=== PATIENT | female | born 1975 | race Caucasian/White ===

== ENCOUNTER 2023-07-25 12:28 | Inpatient (IN) | payer OTHER, SELFPAY ==
[2023-07-25] VITALS (48 sets, daily range): BP systolic 117–143; BP diastolic 77–94; PULSE 27–99; RESP 2–33; TEMP 36.3–36.6; O2SAT 71–96; BMI 50.3; BMI 51.7
--- NOTE | 2023-07-25 12:36 | PC.NURSE ---
Pulse ox. 71% on room air after coming back to room, oxygen applied at 6LPM/NC and pulse ox. 83%, face mask applied at 10 LPM and pulse ox. immediately up to 88-92%.
--- NOTE | 2023-07-25 12:39 | ECG_ITS ---
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
--- NOTE | 2023-07-25 12:42 | ED.SOB1 ---
HPI - SOB/Dyspnea General Chief Complaint: Shortness of Breath/Dyspnea Stated Complaint: SHORTNESS OF BREATH Time Seen by Provider: 07/25/23 12:34 Source: patient Mode of arrival: Wheelchair Limitations: no limitations History of Present Illness HPI Narrative: 47-year-old female presents for a four day history of difficulty breathing. She has a history of chronic obstructive pulmonary disease and has been coughing up some green phlegm. She has not had a known fever and hasn't had hemoptysis. O2 sat was found to be in the low 80s on room air upon arrival. She is not complaining of chest pain. Related Data Home Medications Medication Instructions Recorded Confirmed albuterol 90 mcg/actuation aerosol 90 mcg inhalation QID PRN 07/25/23 07/25/23 inhaler shortness of breath or wheezing hydrochlorothiazide 25 mg tablet 25 mg PO QAM 07/25/23 07/25/23 verapamil 240 mg 24 hr 240 mg PO DAILY 07/25/23 07/25/23 capsule,extended release Allergies Allergy/AdvReac Type Severity Reaction Status Date / Time Penicillins Allergy Intermediate Rash Verified 07/25/23 12:33 sulfamethoxazole Allergy Intermediate Agitated Verified 07/25/23 12:33 [From Bactrim] trimethoprim [From Bactrim] Allergy Intermediate Agitated Verified 07/25/23 12:33 Review of Systems ROS Narrative A ten point review of systems is negative except as noted above. PFSH PFSH Social History Smoking status: Former smoker Exam Narrative Exam Narrative: Nurses note and vital signs reviewed and patient is not hypoxic. General: The patient appears dyspneic.. Skin: Warm, dry, no pallor noted. There is no rash noted. Head: Normocephalic, atraumatic Eye: Normal conjunctiva, no drainage Ears, Nose, Mouth, and Throat: oral mucosa is moist. Nares patent. Cardiovascular: Regular Rate and Rhythm Respiratory: bilateral rhonchi throughout with decreased air movement. Back: non-tender GI: nontender Musculoskeletal: The patient has no evidence of calf tenderness, no pitting edema, symmetrical pulses noted bilaterally Neurological: A&O, normal speech Psychiatric: Cooperative Constitutional Vital Signs, click to edit/add: Last Vital Signs Temp 97.6 F 07/25/23 12:33 Pulse 85 07/25/23 14:40 Resp 22 07/25/23 14:40 BP 143/94 H 07/25/23 12:35 Pulse Ox 90 L 07/25/23 14:40 O2 Del Method Vapotherm 07/25/23 13:30 O2 Flow Rate 40 07/25/23 13:09 FiO2 60 07/25/23 13:30 Course Vital Signs Vital signs: Vital Signs Temperature 97.6 F 07/25/23 12:33 Pulse Rate 80 07/25/23 12:33 Respiratory Rate 24 07/25/23 12:33 Blood Pressure 143/94 H 07/25/23 12:33 Pulse Oximetry 93 L 07/25/23 12:33 Oxygen Delivery Method Simple Mask 07/25/23 12:33 Temperature 97.6 F 07/25/23 12:33 Pulse Rate 85 07/25/23 14:40 Respiratory Rate 22 07/25/23 14:40 Blood Pressure 143/94 H 07/25/23 12:35 Pulse Oximetry 90 L 07/25/23 14:40 Oxygen Delivery Method Vapotherm 07/25/23 13:30 Oxygen Delivery Flow Rate 40 07/25/23 13:09 Fraction of Inspired Oxygen 60 07/25/23 13:30 MDM - SOB/Dyspnea MDM Narrative Medical decision making narrative: the patient presented with chronic obstructive pulmonary disease exacerbation and hypoxemia. She is improving with being given IV Solu-Medrol and being placed on Vapotherm and given aerosol treatments. She is being admitted. Blood cultures were obtained and then she was given IV antibiotics. Covid test negative. Treatment diagnosis and disposition were discussed with the patient. Differential Diagnosis Differential diagnosis: Likely acute exacerbation of chronic obstructive airways disease, congestive heart failure and community acquired pneumonia Lab Data Attestation: I reviewed the patient's lab results. Labs: Lab Results 07/25/23 07/25/23 Range/Units 12:49 12:51 WBC 9.6 (4.0-11.0) 10^3/uL RBC 5.82 H (4.20-5.40) 10^6/uL Hgb 17.4 H (12.0-16.0) g/dL Hct 54.9 H (36.0-48.0) % MCV 94.3 (81.0-99.0) fL MCH 29.9 (26.7-34.0) pg MCHC 31.7 (29.9-35.2) g/dL RDW 13.5 (11.0-15.0) % Plt Count 304 (150-450) 10^3/uL MPV 10.7 (9.5-13.5) fL Neut % (Auto) 76.8 H (43.0-75.0) % Lymph % (Auto) 13.2 L (20.5-60.0) % [place] % (Auto) 7.1 (1.7-12.0) % Eos % (Auto) 1.8 (0.9-7.0) % Baso % (Auto) 0.6 (0.2-2.0) % Neut # (Auto) 7.3 H (1.4-6.5) 10^3/uL Lymph # (Auto) 1.3 (1.2-3.8) 10^3/uL [place] # (Auto) 0.7 (0.3-0.8) 10^3/uL Eos # (Auto) 0.2 (0.0-0.7) 10^3/uL Baso # (Auto) 0.1 (0.0-0.1) 10^3/uL Abs Immat Gran (auto) 0.05 H (0.00-0.03) 10^3/uL Imm/Tot Granulo (auto) 0.5 (0.0-0.5) % Sodium 136 (136-145) mmol/L Potassium 3.6 (3.5-5.1) mmol/L Chloride 95 L (98-107) mmol/L Carbon Dioxide 32.1 H (21.0-32.0) mmol/L Anion Gap 12.5 BUN 11.0 (7.0-18.0) mg/dL Creatinine 0.72 (0.55-1.02) mg/dL Est GFR ( Amer) >60 (>=60) Est GFR (Non-Af Amer) >60 (>=60) BUN/Creatinine Ratio 15.3 Glucose 129 H (74-106) mg/dL Lactate 1.9 (0.4-2.0) mmol/L Calcium 8.9 (8.5-10.1) mg/dL SARS-CoV-2 (PCR) Negative (NEGATIVE) Imaging Data Chest x-ray: Radiologist's impression: Procedure: XR chest 1V EXAMINATION: XR chest 1V HISTORY: SOB COMPARISON: No relevant comparison available. FINDINGS: LUNGS: Increased opacity within lung bases, left greater than right. VASCULATURE: No increased pulmonary vasculature. PLEURA: No pneumothorax, effusion, or pleural thickening. CARDIAC: No cardiomegaly or cardiac silhouette abnormality. MEDIASTINUM: No visible mass or adenopathy. BONES: No fracture or visible bone lesion. OTHER: Negative. IMPRESSION: 1. Examination is limited by patient body habitus and single frontal view AP portable technique. 2. Suspect mild bibasilar infiltrates versus atelectasis; left greater than right. Electronically authenticated by: DEA LACEY Date: 07/25/2023 13:33 Critical Care Time Critical Care Time Critical Care Time: Yes Total Critical Care Time: 35 Attestation: Due to the high probability of sudden and clinically significant deterioration in the patient's condition he/she required the highest level of my preparedness to intervene urgently I provided critical care time including documentation time, medication orders and management, reevaluation, vital sign assessment, ordering and reviewing of lab tests, ordering and reviewing of x-ray studies, and admission orders. Aggregate critical care time is 35 minutes including only time during which I was engaged in work directly related to his/her care and did not include time spent treating other patients simultaneously. Discharge Plan Discharge Chief Complaint: Shortness of Breath/Dyspnea Clinical Impression: Acute infective exacerbation of chronic obstructive airway disease, Community acquired pneumonia Patient Disposition: Admitted As Inpatient Time of Disposition Decision: 15:04 Condition: Fair
[2023-07-25] MEDS: METHYLPREDNISOLONE SOD SUCC PF 125 MG/2 ML VIAL IVP (13:05)
[2023-07-25] MEDS: ALBUTEROL SULFATE 2.5 MG/3 ML VIAL NEB IH (13:07)
--- NOTE | 2023-07-25 13:15 | XR_ITS ---
The [address] [address] Patient Name: DANIEL LYNN MRN: [id number] date: 1975 Sex: F Assigned Patient Location: ER Current Patient Location: ER Accession/Order Number: [id number] Exam Date: 07/25/2023 13:08 Report Date: 07/25/2023 13:33 At the request of: SENIA CHOUDHARY Procedure: XR chest 1V EXAMINATION: XR chest 1V HISTORY: SOB COMPARISON: No relevant comparison available. FINDINGS: LUNGS: Increased opacity within lung bases, left greater than right. VASCULATURE: No increased pulmonary vasculature. PLEURA: No pneumothorax, effusion, or pleural thickening. CARDIAC: No cardiomegaly or cardiac silhouette abnormality. MEDIASTINUM: No visible mass or adenopathy. BONES: No fracture or visible bone lesion. OTHER: Negative. XR/XR chest 1V IMPRESSION: 1. Examination is limited by patient body habitus and single frontal view AP portable technique. 2. Suspect mild bibasilar infiltrates versus atelectasis; left greater than right. Electronically authenticated by: DEA LACEY Date: 07/25/2023 13:33
--- NOTE | 2023-07-25 13:17 | RESP.RT ---
titrated down to 60%
--- NOTE | 2023-07-25 13:18 | RESP.RT ---
titrated down to 60%
[2023-07-25 13:23] LABS: Basophils Absolute Auto 0.1 10^3/uL (0.0-0.1); Basophils Percent Auto 0.6 % (0.2-2.0); Eosinophils Absolute Auto 0.2 10^3/uL (0.0-0.7); Eosinophils Percent Auto 1.8 % (0.9-7.0); Hematocrit 54.9 % (36.0-48.0); Hemoglobin 17.4 g/dL (12.0-16.0); Immature Granulocytes Abs Auto 0.05 10^3/uL (0.00-0.03); Immature Granulocytes Pct Auto 0.5 % (0.0-0.5); Lymphocytes Absolute Auto 1.3 10^3/uL (1.2-3.8); Lymphocytes Percent Auto 13.2 % (20.5-60.0); Mean Corpuscular HGB Conc 31.7 g/dL (29.9-35.2); Mean Corpuscular Hemoglobin 29.9 pg (26.7-34.0); Mean Corpuscular Volume 94.3 fL (81.0-99.0); Mean Platelet Volume 10.7 fL (9.5-13.5); Monocytes Absolute Auto 0.7 10^3/uL (0.3-0.8); Monocytes Percent Auto 7.1 % (1.7-12.0); Neutrophils Absolute Auto 7.3 10^3/uL (1.4-6.5); Neutrophils Percent Auto 76.8 % (43.0-75.0); Platelet Count 304 10^3/uL (150-450); Red Blood Count 5.82 10^6/uL (4.20-5.40); Red Cell Distribution Width 13.5 % (11.0-15.0); White Blood Count 9.6 10^3/uL (4.0-11.0)
[2023-07-25 13:30] LABS: Anion Gap 12.5; BUN Creatinine Ratio 15.3; Calcium 8.9 mg/dL (8.5-10.1); Carbon Dioxide 32.1 mmol/L (21.0-32.0); Chloride 95 mmol/L (98-107); Estimated GFR (African America >60 (>=60); Estimated GFR (Non-African Ame >60 (>=60); Glucose 129 mg/dL (74-106); Potassium 3.6 mmol/L (3.5-5.1); Sodium 136 mmol/L (136-145)
[2023-07-25 14:00] LABS: SARS-CoV-2 Ag NEGATIVE (NEGATIVE)
[2023-07-25] MEDS: CEFTRIAXONE 1,000 MG in 0.9 % SODIUM CHLORIDE 50 ML 100 MG IV (14:19)
[2023-07-25 14:22] LABS: Lactate/Lactic Acid 1.9 mmol/L (0.4-2.0)
[2023-07-25] MEDS: AZITHROMYCIN 500 MG in 0.9 % SODIUM CHLORIDE 250 ML 250 MG IV (15:01)
[2023-07-25] MEDS: KETOROLAC TROMETHAMINE 30 MG/ML VIAL IVP (15:01)
[2023-07-25 15:17] LABS: SARS-CoV-2 NAA NOT DETECTED (NOT DETECTE)
[2023-07-25] MEDS: IPRATROPIUM/ALBUTEROL SULFATE 3 ML AMPUL.NEB IH ×5 (17:04→23:58)
[2023-07-25] MEDS: LACTATED RINGER'S SOLUTION 1,000 ML 100 ML IV (17:07)
[2023-07-25] MEDS: MAGNESIUM SULFATE IN WATER 2 GM/50 ML PREMIX IV (17:12)
[2023-07-25] MEDS: ENOXAPARIN SODIUM 40 MG/0.4 ML SYRINGE SUBQ (17:15)
[2023-07-25 17:31] LABS: ABG PCO2 50.2 mmHg (35.0-45.0); Allen Test POSITIVE (POSITIVE); Base Excess ABG 4.9 mmol/L (-2.0-2.0); HCO3 ABG 29.9 mmol/L (22.0-26.0); Oxygen Saturation ABG 89.9 %; PO2 ABG 60.3 mmHg (80.0-100.0); pH ABG 7.384 (7.350-7.450)
[2023-07-25 17:32] LABS: Fractionated Inspired Oxygen 100 %; Liters per Minute 40; O2 Mode VAPOTHERM; Puncture Site LR
[2023-07-25] MEDS: ALPRAZOLAM 1 MG TABLET PO (18:07)
--- NOTE | 2023-07-25 18:08 | PC.NURSE ---
Transferred to ICU at 1800. RT Longoria assisted.
--- NOTE | 2023-07-25 18:34 | PM.EN ---
Event Note Event Note: Patient admitted from ED for resp failure with hypoxia sec to COPD exacerbation. Started on IV Solumedrol, inhaled bronchodilators. On IV rocephin/azithromycin for bacrterial PNA. Initially admitted for floor on high flow O2 but had increased work of breath, hypoxia - transferred to ICU and placed BIPAP for acute resp failure. ABG ordered and reviewed. Will repeat in one hour.
--- NOTE | 2023-07-25 20:44 | PC.NURSE ---
BIPAP in use. Settings 16/8 with 60% FIO2.
--- NOTE | 2023-07-25 20:55 | RESP.RT ---
Patient on Bipap
[2023-07-25 21:14] LABS: PO2 ABG 76.3 mmHg (80.0-100.0); pH ABG 7.314 (7.350-7.450)
[2023-07-25 21:15] LABS: Allen Test POSITIVE (POSITIVE); BIPAP Pressure 18/8; Base Excess ABG 5.3 mmol/L (-2.0-2.0); Fractionated Inspired Oxygen 60 %; HCO3 ABG 31.5 mmol/L (22.0-26.0); O2 Mode BIPAP; Oxygen Saturation ABG 93.6 %; Puncture Site R RADIAL
--- NOTE | 2023-07-25 21:19 | RESP.RT ---
Increase to 18 per doctors orders
[2023-07-25] MEDS: METHYLPREDNISOLONE SOD SUCC PF 40 MG/ML VIAL IVP (21:58)
--- NOTE | 2023-07-25 23:37 | RESP.RT ---
increased from 80%
--- NOTE | 2023-07-25 23:38 | RESP.RT ---
Increase to 90%
[2023-07-26] VITALS (59 sets, daily range): BP systolic 108–138; BP diastolic 57–79; PULSE 74–105; RESP 2–43; TEMP 36.2–36.4; O2SAT 88–96
--- NOTE | 2023-07-26 00:03 | RESP.RT ---
Titrate to 80%
--- NOTE | 2023-07-26 00:04 | RESP.RT ---
Titrated to 80%
[2023-07-26] MEDS: IPRATROPIUM/ALBUTEROL SULFATE 3 ML AMPUL.NEB IH ×6 (03:55→23:27)
[2023-07-26] MEDS: LACTATED RINGER'S SOLUTION 1,000 ML 100 ML IV ×3 (04:19→22:49)
--- NOTE | 2023-07-26 05:10 | RESP.RT ---
Titrate to 70%
--- NOTE | 2023-07-26 05:12 | RESP.RT ---
Titrate to 75%
--- NOTE | 2023-07-26 05:16 | RESP.RT ---
Titrated to 75%
[2023-07-26] MEDS: METHYLPREDNISOLONE SOD SUCC PF 40 MG/ML VIAL IVP (05:27)
[2023-07-26] MEDS: ACETAMINOPHEN 325 MG TABLET 650 MG PO (05:33)
[2023-07-26 05:53] LABS: Basophils Percent Auto 0.1 % (0.2-2.0); Hematocrit 52.7 % (36.0-48.0); Hemoglobin 16.3 g/dL (12.0-16.0); Immature Granulocytes Abs Auto 0.05 10^3/uL (0.00-0.03); Immature Granulocytes Pct Auto 0.6 % (0.0-0.5); Lymphocytes Absolute Auto 0.6 10^3/uL (1.2-3.8); Lymphocytes Percent Auto 6.7 % (20.5-60.0); Mean Corpuscular HGB Conc 30.9 g/dL (29.9-35.2); Mean Corpuscular Volume 96.9 fL (81.0-99.0); Mean Platelet Volume 10.5 fL (9.5-13.5); Monocytes Absolute Auto 0.1 10^3/uL (0.3-0.8); Monocytes Percent Auto 1.2 % (1.7-12.0); Neutrophils Absolute Auto 8.1 10^3/uL (1.4-6.5); Neutrophils Percent Auto 91.4 % (43.0-75.0); Platelet Count 263 10^3/uL (150-450); Red Blood Count 5.44 10^6/uL (4.20-5.40); Red Cell Distribution Width 13.4 % (11.0-15.0); White Blood Count 8.9 10^3/uL (4.0-11.0)
[2023-07-26 06:14] LABS: Alanine Aminotransferase 14 U/L (14-59); Albumin Globulin Ratio 0.5; Albumin Level 2.7 g/dL (3.4-5.0); Alkaline Phosphatase 64 U/L (46-116); Anion Gap 4.6; Aspartate Amino Transferase 13 U/L (15-37); BUN Creatinine Ratio 24.3; Bilirubin Total 0.5 mg/dL (0.2-1.0); Calcium 8.4 mg/dL (8.5-10.1); Carbon Dioxide 32.7 mmol/L (21.0-32.0); Chloride 97 mmol/L (98-107); Estimated GFR (African America >60 (>=60); Estimated GFR (Non-African Ame >60 (>=60); Globulin 5.2 g/dL; Glucose 193 mg/dL (74-106); Potassium 4.3 mmol/L (3.5-5.1); Sodium 130 mmol/L (136-145); Total Protein 7.9 g/dL (6.4-8.2)
[2023-07-26] MEDS: ENOXAPARIN SODIUM 40 MG/0.4 ML SYRINGE SUBQ (08:11)
[2023-07-26] MEDS: AZITHROMYCIN 250 MG TABLET 500 MG PO (08:11)
[2023-07-26] MEDS: VERAPAMIL HCL ER 240 MG TABLET PO (08:11)
[2023-07-26] MEDS: CEFTRIAXONE 1,000 MG in 0.9 % SODIUM CHLORIDE 50 ML 100 MG IV (08:16)
[2023-07-26 10:42] LABS: Allen Test POSITIVE (POSITIVE); Base Excess ABG 5.7 mmol/L (-2.0-2.0); HCO3 ABG 31.3 mmol/L (22.0-26.0); Oxygen Saturation ABG 90.3 %; PO2 ABG 60.4 mmHg (80.0-100.0)
[2023-07-26 10:43] LABS: Fractionated Inspired Oxygen 80 %; Liters per Minute 40; O2 Mode VAPO; Puncture Site R RADIAL
[2023-07-26 10:44] LABS: ABG PCO2 56.7 mmHg (35.0-45.0)
--- NOTE | 2023-07-26 11:11 | PM.HP ---
H&P: HPI History of Present Illness Chief complaint: SHORTNESS OF BREATH, Pneumonia, COPD Exacerbation Narrative: 47 y o female with hx of COPD, presents with cough, worsening SOB since Sunday. Reports her son was sick because of a cold and she woke up on Sunday with a sore throat, nasal congestion, and cough. She denies fever. She progressively started to feel worse with increasing SOB, cough and came to ED yesterday. Patients was found to have acute resp failure with hpyoxia sec to COPD exacerbation likely exacerebated by bibasilar PNA. She was treated with IV solumedrol, inhaled duonebs along with IV anx for presumed bacterial PNA and required High flow O2 to maintain her Sats above 90%. On arrival to floor, she was found to be tachypeic, with increased work of breath and was moved to ICU and had BIPAP placed. She remained on BIPAP overnight and was taken off of it so that she could have breakfast. She reports feeling better but looks sick, and gets out of breath during conversation. No prior hx of hospital admission for COPD. Current smoker. Review of Systems ROS Status of ROS 10 or more systems reviewed and unremarkable except as noted in history and below PFSH [facility] Medical History delivery delivered ?O82 - Encounter for delivery without indication (ICD-10) COPD (chronic obstructive pulmonary disease) ?J44.9 - Chronic obstructive pulmonary disease, unspecified (ICD-10) Diabetes ?E11.9 - Type 2 diabetes mellitus without complications (ICD-10) HTN (hypertension) ?I10 - Essential (primary) hypertension (ICD-10) Surgical History H/O: ?Z98.891 - History of uterine scar from previous surgery (ICD-10) Family History Mother Family history of CHF (congestive heart failure) Family history of COPD (chronic obstructive pulmonary disease) Family history of hypertension Family history of myocardial infarction Brother Family history of COPD (chronic obstructive pulmonary disease) Father Family history of cancer Grandfather Family history of diabetes mellitus Social History (Updated 07/26/23 @ 11:17 by Shaikh Carlyle MD) Within the past year, how often did you have a drink containing alcohol: never Within the past year, how many standard drinks containing alcohol did you have on a typical day: 1 or 2 Within the past year, how often did you have six or more drinks on one occasion: never Total score: 0 Score interpretation: A score less than 3 is consistent with normal alcohol consumption. Smoking status: Current every day smoker Non-prescribed substance use: denies use Meds Home Medications and Allergies Home Medications Medication Instructions Recorded Confirmed Type albuterol 90 mcg/actuation aerosol 90 mcg inhalation QID PRN 07/25/23 07/25/23 History inhaler shortness of breath or wheezing hydrochlorothiazide 25 mg tablet 25 mg PO QAM 07/25/23 07/25/23 History verapamil 240 mg 24 hr 240 mg PO .QHS 07/25/23 07/25/23 History capsule,extended release Allergies Allergy/AdvReac Type Severity Reaction Status Date / Time Penicillins Allergy Intermediate Rash Verified 07/25/23 12:33 sulfamethoxazole Allergy Intermediate Agitated Verified 07/25/23 12:33 [From Bactrim] trimethoprim [From Bactrim] Allergy Intermediate Agitated Verified 07/25/23 12:33 Exam Constitutional Vital Signs, click to edit/add: Last Vital Signs Temp 97.4 F L 07/26/23 07:59 Pulse 89 07/26/23 10:00 Resp 15 07/26/23 08:00 BP 115/73 07/26/23 07:28 Pulse Ox 91 L 07/26/23 08:30 O2 Del Method Vapotherm 07/26/23 07:59 O2 Flow Rate 40 07/26/23 07:38 FiO2 80 07/26/23 07:38 Documenting provider has reviewed patient's vital signs: yes Common normals: oriented x3 General appearance: cooperative and ill appearing Nutritional appearance: obese HENMT Common normals: normocephalic and head/scalp atraumatic Head and scalp: normocephalic and atraumatic Eye Common normals: conjunctivae normal and no scleral icterus Conjunctiva: conjunctiva(e) normal Respiratory Effort & inspection: actively coughing Auscultation: wheezes expiratory wheezes and throughout Other: Normal RR, bronchospastic, diminish air entry Cardio Common normals: regular rate, S1 normal heart sound and S2 normal heart sound Rate: regular rate Heart sounds: S1 normal and S2 normal GI Common normals: Normal to inspection, nondistended, normoactive bowel sounds present, soft to palpation, non-tender and no hepatosplenomegaly Palpation: soft and no hepatosplenomegaly Extremity Common normals: no clubbing, cyanosis or edema Neuro Common normals: oriented x3, moves all extremities and no focal motor deficits Psych Common normals: mental status grossly normal, denies hallucinations, denies homicidal ideation and denies suicidal ideation Results Labs Labs: Short CBC 07/25/23 07/26/23 Range/Units 12:49 05:27 WBC 9.6 8.9 (4.0-11.0) 10^3/uL Hgb 17.4 H 16.3 H (12.0-16.0) g/dL Hct 54.9 H 52.7 H (36.0-48.0) % Plt Count 304 263 (150-450) 10^3/uL BMP 07/25/23 07/26/23 12:49 05:27 Sodium 136 130 L Potassium 3.6 4.3 Chloride 95 L 97 L Carbon Dioxide 32.1 H 32.7 H BUN 11.0 18.0 Creatinine 0.72 0.74 Glucose 129 H 193 H Calcium 8.9 8.4 L Liver Function 07/26/23 Range/Units 05:27 Total Bilirubin 0.5 (0.2-1.0) mg/dL AST 13 L (15-37) U/L ALT 14 (14-59) U/L Alkaline Phosphatase 64 (46-116) U/L Albumin 2.7 L (3.4-5.0) g/dL ABG ABG results: 07/25/23 07/25/23 07/26/23 17:20 21:09 10:35 ABG pH 7.384 7.314 L 7.350 ABG pCO2 50.2 H* 62.0 H* 56.7 H* ABG pO2 60.3 L 76.3 L 60.4 L ABG HCO3 29.9 H 31.5 H 31.3 H ABG O2 Saturation 89.9 93.6 90.3 ABG Base Excess 4.9 H 5.3 H 5.7 H Assessment and Plan Assessment and Plan (1) Sepsis: Assessment and Plan: RR> 20, HR > 90, with PNA. Stable now. C/w IVF. C/w IV abx for community acquired PNA (2) Community acquired pneumonia: Assessment and Plan: C/w rocpehin/azithromycin Negative for COVID Order resp panel. (3) Acute infective exacerbation of chronic obstructive airway disease: Assessment and Plan: Sec to PNA. C/w systemic steroids, duonebs. Monitor closely. (4) Respiratory failure with hypercapnia: Assessment and Plan: Resulting from COPD/PNA. On BIPAP now. Pulm consult. Treat underlying cause - as outlined above. (5) Respiratory failure with hypoxia: Assessment and Plan: Due to COPD/PNA Wean off O2 as tolerated. On BIPAP for resp failure (6) HTN (hypertension): Assessment and Plan: Hold HCTZ. cw verapamil. (7) Diabetes: Assessment and Plan: Diet controlled as outpatient. not on meds. Sliding scale while in patient. FSBS above goal likely due to steroids. Qualifiers: Diabetes mellitus type: type 2 Diabetes mellitus patient safety coordinator insulin use: without shelter use Plan Patient critically ill with sepsis, acute resp failure, requiring NIV, close monitoring and at high risk of clinical deterioration, and poor outcome. Critical care time spent 45 min, on chart review, clinical decision making, patients assessment, care co ordination with more than 50% time spent face to face in patient's room
[2023-07-26 11:19] LABS: Adenovirus NOT DETECTED (NOT DETECTE); Bordetella parapertussis NOT DETECTED (NOT DETECTE); Coronavirus 229E NOT DETECTED (NOT DETECTE); Coronavirus HKU1 NOT DETECTED (NOT DETECTE); Coronavirus NL63 NOT DETECTED (NOT DETECTE); Coronavirus OC43 NOT DETECTED (NOT DETECTE); Human Metapneumovirus NOT DETECTED (NOT DETECTE); Influenza A NOT DETECTED (NOT DETECTE); Influenza B NOT DETECTED (NOT DETECTE); Mycoplasma pneumoniae NOT DETECTED (NOT DETECTE); Parainfluenza Virus 1 NOT DETECTED (NOT DETECTE); Parainfluenza Virus 2 NOT DETECTED (NOT DETECTE); Parainfluenza Virus 3 NOT DETECTED (NOT DETECTE); Parainfluenza Virus 4 NOT DETECTED (NOT DETECTE); Respiratory Syncytial Virus NOT DETECTED (NOT DETECTE); SARS-CoV-2 NOT DETECTED (NOT DETECTE)
--- NOTE | 2023-07-26 11:37 | P.PLCN_ITS ---
History of Present Illness History of Present Illness Consult date: 07/26/23 Requesting physician: Shaikh Carlyle Reason for consult: hypoxemia Chief complaint: SHORTNESS OF BREATH, Pneumonia, COPD Exacerbation Narrative: 47yo female presents to [facility] with ~4 day onset of worsening dyspnea and chest tightness. Her breathing worsened and she came to the ER. Oxygenation on room air was in the 80's and she was placed on supplemental O2. CXR suggested bibasilar infiltrates. She was admitted for pneumonia. Her O2 demands increased and she was placed on Vapotherm. She continued to deteriorate. ABG drawn showed compensated hypercapnic respiratory failure. She was transitioned to BiPAP, which she said is easier for her to breathe. Her O2 demands remand high and oxygen saturations remain tenuous. Reviewed past history with her. She states she is a long-term asthmatic, diagnosed age 14 based on symptoms (never has had PFT) and was only on Primatene Mist back then. Since that time, she is on albuterol only and does not have a m aintenance inhaler. Despite having asthma, she smokes up to 1ppd. She states she is a diet-controlled diabetic and not on any medication for it. She has chronic bibasilar lower extremity edema. No known cardiovascular disease. She claims she was told to get a sleep study, but she ignored the advice - this was several years ago. Review of Systems ROS Status of ROS 10 or more systems reviewed and unremarkable except as noted in history and below Constitutional Reports: fever (?) and fatigue Respiratory Reports: shortness of breath, cough and wheezing Gastrointestinal Denies: nausea or vomiting [facility] Medical History delivery delivered ?O82 - Encounter for delivery without indication (ICD-10) COPD (chronic obstructive pulmonary disease) ?J44.9 - Chronic obstructive pulmonary disease, unspecified (ICD-10) Diabetes ?E11.9 - Type 2 diabetes mellitus without complications (ICD-10) HTN (hypertension) ?I10 - Essential (primary) hypertension (ICD-10) Surgical History H/O: ?Z98.891 - History of uterine scar from previous surgery (ICD-10) Family History Mother Family history of CHF (congestive heart failure) Family history of COPD (chronic obstructive pulmonary disease) Family history of hypertension Family history of myocardial infarction Brother Family history of COPD (chronic obstructive pulmonary disease) Father Family history of cancer Grandfather Family history of diabetes mellitus Social History (Updated 07/26/23 @ 11:17 by Shaikh Carlyle MD) Within the past year, how often did you have a drink containing alcohol: never Within the past year, how many standard drinks containing alcohol did you have on a typical day: 1 or 2 Within the past year, how often did you have six or more drinks on one occasion: never Total score: 0 Score interpretation: A score less than 3 is consistent with normal alcohol consumption. Smoking status: Current every day smoker Non-prescribed substance use: denies use Meds Home Medications and Allergies Home Medications Medication Instructions Recorded Confirmed Type albuterol 90 mcg/actuation aerosol 90 mcg inhalation QID PRN 07/25/23 07/25/23 History inhaler shortness of breath or wheezing hydrochlorothiazide 25 mg tablet 25 mg PO QAM 07/25/23 07/25/23 History verapamil 240 mg 24 hr 240 mg PO .QHS 07/25/23 07/25/23 History capsule,extended release Allergies Allergy/AdvReac Type Severity Reaction Status Date / Time Penicillins Allergy Intermediate Rash Verified 07/25/23 12:33 sulfamethoxazole Allergy Intermediate Agitated Verified 07/25/23 12:33 [From Bactrim] trimethoprim [From Bactrim] Allergy Intermediate Agitated Verified 07/25/23 12:33 Exam Constitutional Vital Signs, click to edit/add: Last Vital Signs Temp 97.4 F L 07/26/23 07:59 Pulse 89 07/26/23 10:00 Resp 15 07/26/23 08:00 BP 115/73 07/26/23 07:28 Pulse Ox 91 L 07/26/23 08:30 O2 Del Method Vapotherm 07/26/23 07:59 O2 Flow Rate 40 07/26/23 07:38 FiO2 80 07/26/23 07:38 Documenting provider has reviewed patient's vital signs: yes General appearance: cooperative Nutritional appearance: obese morbidly obese Orientation/consciousness: Yes awake HENMT Other: Wearing Vapotherm nasal cannula at this moment. Mallampati IV. Chest Common normals: inspection of chest normal Respiratory Other: Diminished breath sounds, especially in the bases. Very tight with diffuse expiratory wheezes. No significant crackles. Cardio Rate: regular rate Rhythm: regular rhythm GI Inspection: central obesity Back & Pelvis Thoracic spine/upper back: kyphosis present Extremity General: edema (Bilateral with mild chronic stasis changes) Neuro Common normals: oriented x3 Sensorium/orientation: awake and alert Speech: speech normal Psych Attitude: calm Results Laboratory Findings ABG, PT/INR, D-dimer: ABG ABG pH 7.350 (7.350-7.450) 07/26/23 10:35 ABG pCO2 56.7 mmHg (35.0-45.0) H* 07/26/23 10:35 ABG pO2 60.4 mmHg (80.0-100.0) L 07/26/23 10:35 ABG O2 Saturation 90.3 % 07/26/23 10:35 Abnormal lab findings: Abnormal Labs 07/25/23 07/25/23 07/25/23 12:49 17:20 21:09 RBC 5.82 H Hgb 17.4 H Hct 54.9 H Neut % (Auto) 76.8 H Lymph % (Auto) 13.2 L [place] % (Auto) Eos % (Auto) Baso % (Auto) Neut # (Auto) 7.3 H Lymph # (Auto) [place] # (Auto) Abs Immat Gran (auto) 0.05 H Imm/Tot Granulo (auto) ABG pH 7.314 L ABG pCO2 50.2 H* 62.0 H* ABG pO2 60.3 L 76.3 L ABG HCO3 29.9 H 31.5 H ABG Base Excess 4.9 H 5.3 H Sodium Chloride 95 L Carbon Dioxide 32.1 H Glucose 129 H Calcium AST Albumin 07/26/23 07/26/23 05:27 10:35 RBC 5.44 H Hgb 16.3 H Hct 52.7 H Neut % (Auto) 91.4 H Lymph % (Auto) 6.7 L [place] % (Auto) 1.2 L Eos % (Auto) 0.0 L Baso % (Auto) 0.1 L Neut # (Auto) 8.1 H Lymph # (Auto) 0.6 L [place] # (Auto) 0.1 L Abs Immat Gran (auto) 0.05 H Imm/Tot Granulo (auto) 0.6 H ABG pH ABG pCO2 56.7 H* ABG pO2 60.4 L ABG HCO3 31.3 H ABG Base Excess 5.7 H Sodium 130 L Chloride 97 L Carbon Dioxide 32.7 H Glucose 193 H Calcium 8.4 L AST 13 L Albumin 2.7 L Diagnostic Findings Chest x-ray: report reviewed and image reviewed Assessment and Plan Assessment and Plan (1) Unspecified asthma with (acute) exacerbation: Assessment and Plan: 1. Acute exacerbation of asthma (unspecified). Presumptive provoked by viral illness - son and were ill, and she has heavy exposure to potential pathogens working with [employer]. Patient remains quite bronchospastic at this time. MgSO4 administered yesterday, which patient states helped her breathe a little better, but no F/U Mg2+ level was drawn, so cannot give additional doses d/t risk of hypermagnesemia without having the level checked. Continue with bronchodilators. Add nebulized budesonide. Increase IV steroids for now to see if this helps. No Heliox available @ [facility]. Discussed with patient that if she fails Vapotherm & BiPAP, next step is intubation. At this moment, she does not appear to be struggling or using accessory muscles to suggest she is developing status asthmaticus. After discharge, recommend starting some sort of maintenance inhaler and she will need a PFT. 2. Community acquired pneumonia. Current working diagnosis. However, I am unclear if abnormal CXR is infiltrate or effusion (given BLE edema) - no BNP was drawn. Patient may benefit from chest CT to further evaluate, but given on/off Vapotherm/BiPAP, may not be feasible at the moment. BCx2 pending. Respiratory panel was just ordered and is pending. 3. Acute hypoxic respiratory failure. Secondary to the above. Failing Vapotherm, requiring BiPAP. Maintain SpO2 >90%. Check d-dimer - if elevated, order chest CTA. 4. Chronic hypercapnic respiratory failure. Consistent with obestity- hypoventilation syndrome. This is not acute, as HCO3- on presentation was 32, indicating chronic compensation. Likewise, pH has remained 7.35 or higher. She is at risk for further decompensation if bronchospasm worsens. Can continue with BiPAP for now, but need to be very careful if/when adjusting IPAP & EPAP as it could potentially worsen CO2 retention. Had discussion with patient that she will need outpatient PSG and weight loss if she has any chance of this being reversible. 5. Diabetes mellitus type 2. Diet controlled per patient. Need to monitor FSBS with SSI given ATC steroids. ? check A1c - defer to hospitalist. 6. Edema. Given patient's overall habitus, possible she could have underlying CHF or other cardiac disease. May benefit from echocardiogram in future. 7. Tobacco abuse. Patient gave me and the respiratory therapist conflicting amounts of daily cigarette consumption. Discussed with patient regardless of the amount, she needs to quit completely for multiple reasons, including underlying asthma. 8. Morbid obesity with BMI 51.7. This is inducing a restrictive pulmonary physiology. Additionally, patient has physical exam findings suggestive of ANSHUL/OHS. Weight loss was discussed.
[2023-07-26] MEDS: METHYLPREDNISOLONE SOD SUCC PF 125 MG/2 ML VIAL IVP ×2 (12:11→17:34)
[2023-07-26 12:13] LABS: Human Rhinovirus/Enterovirus DETECTED (NOT DETECTE)
[2023-07-26 12:41] LABS: D Dimer <0.19 mg/L FEU (<=0.59)
[2023-07-26 16:09] LABS: Glucometer 242 mg/dL (74-106)
[2023-07-26] MEDS: INSULIN ASPART 300 UNIT/3 ML PEN SUBQ ×2 (17:34→21:39)
[2023-07-26 20:29] LABS: Glucometer 280 mg/dL (74-106)
[2023-07-26] MEDS: BUDESONIDE 0.5 MG/2 ML AMPULE NEB IH (23:27)
--- NOTE | 2023-07-26 23:37 | RESP.RT ---
increased to bipap
--- NOTE | 2023-07-26 23:41 | RESP.RT ---
Patient on bipap
[2023-07-27] VITALS (46 sets, daily range): BP systolic 118–139; BP diastolic 65–83; PULSE 75–98; RESP 10–26; TEMP 36.2–36.7; O2SAT 87–95
[2023-07-27] MEDS: METHYLPREDNISOLONE SOD SUCC PF 125 MG/2 ML VIAL IVP ×4 (00:17→18:08)
[2023-07-27] MEDS: IPRATROPIUM/ALBUTEROL SULFATE 3 ML AMPUL.NEB IH ×6 (03:55→23:23)
[2023-07-27 04:27] LABS: Basophils Percent Auto 0.1 % (0.2-2.0); Eosinophils Percent Auto 0.1 % (0.9-7.0); Hematocrit 52.1 % (36.0-48.0); Immature Granulocytes Abs Auto 0.13 10^3/uL (0.00-0.03); Immature Granulocytes Pct Auto 0.9 % (0.0-0.5); Lymphocytes Absolute Auto 0.5 10^3/uL (1.2-3.8); Lymphocytes Percent Auto 3.6 % (20.5-60.0); Mean Corpuscular HGB Conc 30.7 g/dL (29.9-35.2); Mean Corpuscular Hemoglobin 30.1 pg (26.7-34.0); Mean Corpuscular Volume 98.1 fL (81.0-99.0); Mean Platelet Volume 11.3 fL (9.5-13.5); Monocytes Absolute Auto 0.3 10^3/uL (0.3-0.8); Monocytes Percent Auto 2.3 % (1.7-12.0); Neutrophils Absolute Auto 13.6 10^3/uL (1.4-6.5); Platelet Count 196 10^3/uL (150-450); Red Blood Count 5.31 10^6/uL (4.20-5.40); Red Cell Distribution Width 13.4 % (11.0-15.0); White Blood Count 14.7 10^3/uL (4.0-11.0)
[2023-07-27 04:56] LABS: Alanine Aminotransferase 17 U/L (14-59); Albumin Globulin Ratio 0.6; Albumin Level 2.8 g/dL (3.4-5.0); Alkaline Phosphatase 64 U/L (46-116); Aspartate Amino Transferase 16 U/L (15-37); BUN Creatinine Ratio 24.2; Bilirubin Total 0.4 mg/dL (0.2-1.0); Calcium 8.4 mg/dL (8.5-10.1); Carbon Dioxide 32.2 mmol/L (21.0-32.0); Chloride 99 mmol/L (98-107); Estimated GFR (African America >60 (>=60); Estimated GFR (Non-African Ame >60 (>=60); Glucose 221 mg/dL (74-106); Potassium 5.2 mmol/L (3.5-5.1); Sodium 133 mmol/L (136-145); Total Protein 7.8 g/dL (6.4-8.2)
[2023-07-27] MEDS: BUDESONIDE 0.5 MG/2 ML AMPULE NEB IH ×2 (07:39→23:23)
[2023-07-27] MEDS: LACTATED RINGER'S SOLUTION 1,000 ML 100 ML IV (09:21)
[2023-07-27] MEDS: AZITHROMYCIN 250 MG TABLET 500 MG PO (09:22)
[2023-07-27] MEDS: VERAPAMIL HCL ER 240 MG TABLET PO (09:22)
[2023-07-27] MEDS: ENOXAPARIN SODIUM 40 MG/0.4 ML SYRINGE SUBQ (09:22)
[2023-07-27] MEDS: FLU VACC QS 23-24(6MS UP)CEL/PF 60 MCG/0.5 ML SYRINGE IM (09:22)
[2023-07-27] MEDS: CEFTRIAXONE 1,000 MG in 0.9 % SODIUM CHLORIDE 50 ML 100 MG IV (09:25)
--- NOTE | 2023-07-27 11:47 | CA_ITS ---
Patient Name: DANIEL LYNN MR#: [id number] : 1975 Exam Date: 07/27/2023 Ordering Doctor: Shaikh Deedee Tadeo . ECHOCARDIOGRAM REPORT PROCEDURE: CA ECHO DOPPLER COMPLETE INDICATIONS: Sepsis, pneumonia, COPD, hypertension, diabetes COMPARISON: None. DESCRIPTION: COMPLETE ECHOCARDIOGRAM Real-time transthoracic echocardiography with 2D, M-mode, spectral and color flow Doppler performed. QUALITY: Technical quality was good. LEFT VENTRICLE: Normal chamber size. Normal left ventricular wall thickness. D-shaped septum consistent with right ventricular pressure and/or volume overload. LV EF: Global left ventricular systolic function is hyperdynamic; visually estimated ejection fraction is 65 to 70%. DIASTOLIC: Unable to assess diastolic dysfunction. ATRIAL SEPTUM: Inadequately seen. LEFT ATRIUM: Normal chamber size. RIGHT ATRIUM: Severe dilatation. RIGHT VENTRICLE: Severe dilatation. Systolic function is severely reduced. TRICUSPID VALVE: Normal mobility and thickness. No stenosis with moderate regurgitation. Doppler studies reveal severely (>60) elevated right sided pressures. RVSP 99 mmHg MITRAL VALVE: Normal mobility and thickness. No evidence of mitral valve stenosis. Mild mitral annular calcification. No mitral regurgitation. AORTIC VALVE: Normal trileaflet appearance. Normal leaflet mobility. No evidence of aortic valve stenosis. No aortic regurgitation. AORTIC ROOT: Normal diameter and appearance. PULMONIC VALVE: Poorly seen. No stenosis. No regurgitation. PERICARDIUM: Trivial pericardial effusion. IVC: IVC is dilated (2.3 cm) with no collapse. PLEURA: CONCLUSION: 1. Global left ventricular systolic function is hyperdynamic; visually estimated ejection fraction is 65 to 70% 2. D-shaped septum consistent with right ventricular pressure and/or volume overload 3. The right ventricle is severely dilated with severely reduced systolic function 4. The right atrium is severely dilated 5. Moderate tricuspid regurgitation 6. Severely elevated right sided pressures; RVSP 99 mmHg 7. Trivial pericardial effusion Adult Echocardiography Procedure Report Left Ventricle LVEDD (3.7 - 5.6 cm): 4.93 cm LVESD (2.2 - 4.0 cm): 2.73 cm LVIVS thickness (0.6 - 1.2 cm): 0.98 cm LVPW thickness (0.5 - 1.0 cm): 0.95 cm e': 0.10 m/s E - e': 8.58 LVOT Max Gradient: 4.02 mm[Hg] LVOT Area (cm2): 1.00 m/s Peak Velocity (LVOT): 1.00 m/s LVOT Diameter 2.41 cm Left Atrium Left Atrium Systolic Dimension: 4.04 cm Mitral Valve MV E to A Ratio: 0.75, 0.71 Mitral Valve A-Wave Peak Velocity: 1.18 m/s Mitral Valve E-Wave Peak Velocity: 0.86 m/s Right Ventricle Aorta AO Root Diam: 3.00 cm Ascending Ao Diam: 2.57 cm Aortic Valve AoV Area (Peak Armen): 3.45 cm2, 3.45 cm2 Peak Velocity(Antegrade Flow): 1.33 m/s Peak Gradient(Antegrade Flow): 7.03 mm[Hg] Tricuspid Valve Peak Velocity (Regurgitant Flow): 4.59 m/s Pulmonic Valve Mean Gradient: 5.81 mm[Hg], 5.11 mm[Hg] Mean Velocity: 1.12 m/s, 1.06 m/s Peak Velocity: 1.64 m/s, 1.55 m/s Peak Gradient: 9.56 mm[Hg], 11.81 mm[Hg], 9.74 mm[Hg] Right Atrium Right Atrium Systolic Pressure: 106.25 ml, 106.25 ml Dictated by: Wade Jennings M.D. on 07/30/2023 at 16:36 Approved by: Wade Jennings M.D. on 07/30/2023 at 16:45
--- NOTE | 2023-07-27 11:47 | PM.IMPN1 ---
Progress Note: A&P Assessment and Plan (1) Sepsis: Assessment and Plan: Stable hemodynamics. W/u revealed viral pneumonia due to rhinovirus. D/c rocephin. C/w azihtomycin. (2) Respiratory failure with hypoxia: Assessment and Plan: Persistent hypoxia but improving slowly. On high flow O2. Wean off O2 as tolerated Appreciate pulm consult. Ordered 2D ECHO to assess cardiac structure. Suspect underlying HFpEF. Appears volume overload on exam today. Elevated [employer]. One time dose of IV lasix. F/u renal function closely. Monitor resp status. (3) Acute infective exacerbation of chronic obstructive airway disease: Assessment and Plan: Exacerbated due to rhinovirus. C/w systemic steroids, duonebs. On azithromycin also . (4) Community acquired pneumonia: Assessment and Plan: Suspected CAP. Randhawa revealed viral PNA as resp panel is positive for rhinovirus. D/c rocephin. (5) HTN (hypertension): Assessment and Plan: C/w home meds. HCTZ on hold. Gave one dose of IV lasix. (6) Diabetes: Assessment and Plan: Not on meds as outpatient. Suspect she will need something on d/c. SSI while inpatient. added levemir 20 units for tonight. Check A1C with am labs. FSBS above goal partly due to steroids. Qualifiers: Diabetes mellitus type: type 2 Diabetes mellitus prison insulin use: without terminal operator use (7) Rhinovirus infection: Assessment and Plan: Resulting in COPD exacerbation, resp failure with hypoxia. C/w supportive care. Monitor Internal Medicine - PN: Subj Subjective Interval history: Seen and examined. No overnight events. On High flow O2. Requiring 80% FIO2. Doing well and feels beter from before. Exam Constitutional Vital Signs, click to edit/add: Last Vital Signs Temp 97.2 F L 07/27/23 06:00 Pulse 84 07/27/23 10:10 Resp 22 07/27/23 06:00 BP 118/68 07/27/23 06:00 Pulse Ox 91 L 07/27/23 11:27 O2 Del Method Vapotherm 07/27/23 11:27 O2 Flow Rate 30 07/27/23 11:27 FiO2 70 07/27/23 11:27 Documenting provider has reviewed patient's vital signs: yes Common normals: oriented x3 General appearance: cooperative Nutritional appearance: obese Respiratory Common normals: normal respiratory effort and no use of accessory muscles Effort & inspection: able to speak in complete sentences Other: Improved air entry but still diminished. Fine crackles at baseline Cardio Common normals: regular rate, S1 normal heart sound and S2 normal heart sound Rate: regular rate Heart sounds: S1 normal and S2 normal GI Common normals: Normal to inspection, nondistended, normoactive bowel sounds present, soft to palpation, non-tender and no hepatosplenomegaly Palpation: soft and no hepatosplenomegaly Extremity General: edema (+2 edema peripheral LE. ) Neuro Common normals: oriented x3, moves all extremities and no focal motor deficits Internal Medicine - PN: Obj Da Labs Labs: Laboratory Results - last 24 hr 07/26/23 07/26/23 07/26/23 11:15 11:40 12:05 WBC RBC Hgb Hct MCV MCH MCHC RDW Plt Count MPV Neut % (Auto) Lymph % (Auto) [place] % (Auto) Eos % (Auto) Baso % (Auto) Neut # (Auto) Lymph # (Auto) [place] # (Auto) Eos # (Auto) Baso # (Auto) Abs Immat Gran (auto) Imm/Tot Granulo (auto) D-Dimer <0.19 Sodium Potassium Chloride Carbon Dioxide Anion Gap BUN Creatinine Est GFR ( Amer) Est GFR (Non-Af Amer) BUN/Creatinine Ratio Glucose Calcium Magnesium 2.0 Total Bilirubin AST ALT Alkaline Phosphatase NT-Pro-B Natriuret Pep 648.0 H Total Protein Albumin Globulin Albumin/Globulin Ratio Adenovirus (PCR) Not detected C. pneumoniae DNA (PCR) Not detected Coronavirus Type OC43 Not detected Coronavirus Type HKU1 Not detected Coronavirus Type 229E Not detected Coronavirus Type NL63 Not detected Human Metapneumovir PCR Not detected M. pneumoniae (PCR) Not detected Parainfluenza PCR Not detected Parainfluenza 2 (PCR) Not detected Parainfluenza 3 (PCR) Not detected Parainfluenza 4 (PCR) Not detected RSV (RT-PCR) Not detected Entero/Rhino (PCR) Detected A SARS-CoV-2 (PCR) Not detected Bordetella pertussis (PCR) Not detected B parapertussis DNA PCR Not detected Influenza Type A (PCR) Not detected Influenza Type B (PCR) Not detected POC Glucose 07/26/23 07/26/23 07/27/23 16:08 20:28 04:05 WBC 14.7 H RBC 5.31 Hgb 16.0 Hct 52.1 H MCV 98.1 MCH 30.1 MCHC 30.7 RDW 13.4 Plt Count 196 MPV 11.3 Neut % (Auto) 93.0 H Lymph % (Auto) 3.6 L [place] % (Auto) 2.3 Eos % (Auto) 0.1 L Baso % (Auto) 0.1 L Neut # (Auto) 13.6 H Lymph # (Auto) 0.5 L [place] # (Auto) 0.3 Eos # (Auto) 0.0 Baso # (Auto) 0.0 Abs Immat Gran (auto) 0.13 H Imm/Tot Granulo (auto) 0.9 H D-Dimer Sodium 133 L Potassium 5.2 H Chloride 99 Carbon Dioxide 32.2 H Anion Gap 7.0 BUN 15.0 Creatinine 0.62 Est GFR ( Amer) >60 Est GFR (Non-Af Amer) >60 BUN/Creatinine Ratio 24.2 Glucose 221 H Calcium 8.4 L Magnesium Total Bilirubin 0.4 AST 16 ALT 17 Alkaline Phosphatase 64 NT-Pro-B Natriuret Pep Total Protein 7.8 Albumin 2.8 L Globulin 5.0 Albumin/Globulin Ratio 0.6 Adenovirus (PCR) C. pneumoniae DNA (PCR) Coronavirus Type OC43 Coronavirus Type HKU1 Coronavirus Type 229E Coronavirus Type NL63 Human Metapneumovir PCR M. pneumoniae (PCR) Parainfluenza PCR Parainfluenza 2 (PCR) Parainfluenza 3 (PCR) Parainfluenza 4 (PCR) RSV (RT-PCR) Entero/Rhino (PCR) SARS-CoV-2 (PCR) Bordetella pertussis (PCR) B parapertussis DNA PCR Influenza Type A (PCR) Influenza Type B (PCR) POC Glucose 242 H 280 H
--- NOTE | 2023-07-27 11:52 | CM.NOTE ---
Rounds made with Dr. Tadeo. Continues on Vapotherm. No discharge today.
[2023-07-27] MEDS: INSULIN ASPART 300 UNIT/3 ML PEN SUBQ ×3 (12:13→21:46)
[2023-07-27 12:15] LABS: Glucometer 251 mg/dL (74-106)
[2023-07-27] MEDS: FUROSEMIDE 40 MG/4 ML VIAL IVP ×2 (12:15→19:16)
--- NOTE | 2023-07-27 15:24 | CT_ITS ---
[address] [address] Patient Name: DANIEL LYNN MRN: [id number] date: 1975 Sex: F Assigned Patient Location: ICU Current Patient Location: ICU Accession/Order Number: [id number] Exam Date: 07/27/2023 16:23 Report Date: 07/27/2023 16:57 At the request of: SHAIKH RAJANI Procedure: CT angio chest EXAM: CT angio chest HISTORY: right sided heart enlargement COMPARISON: None. TECHNIQUE: CT chest with intravenous contrast was performed with timing for the evaluation for pulmonary arteries. Multiplanar reformats were performed. MIP (maximum intensity projection) images or 3D post processing was performed. Dose reduction techniques were achieved by using automated exposure control and/or adjustment of mA and/or kV according to patient size and/or use of iterative reconstruction technique. FINDINGS: Lungs: No pneumothorax or effusion. There are bilateral, right greater than left patchy groundglass opacities, predominantly seen in the periphery, likely representing multifocal pneumonia, including COVID pneumonia. Airways: Normal. Mediastinum: No adenopathy. Aorta: No aneurysm. Cardiac: Mild cardiomegaly. Right ventricular hypertrophy with reflux of contrast into the IVC and hepatic veins, likely due to increased right heart pressure and heart failure. No pericardial effusion. Pulmonary vasculature: Diagnostic opacification of pulmonary arteries without evidence of pulmonary embolus. Enlarged main pulmonary artery measuring 4.5 cm, likely representing pulmonary hypertension. Correlation with echocardiography is recommended. Bones: No acute bony abnormality. Axilla: No adenopathy. Thyroid gland: No abnormality demonstrated on provided imaging. Soft tissues: Unremarkable. Upper abdomen: Unremarkable. Additional findings: None. CT/CT angio chest IMPRESSION: No evidence of pulmonary embolus. Mild cardiomegaly. Right ventricular hypertrophy with reflux of contrast into the IVC and hepatic veins, likely due to increased right heart pressure and heart failure.Enlarged main pulmonary artery measuring 4.5 cm, likely representing pulmonary hypertension. Correlation with echocardiography is recommended. Bilateral, right greater than left patchy groundglass opacities, predominantly seen in the periphery, likely representing multifocal pneumonia, including COVID pneumonia. Electronically authenticated by: YVETTE KIRBY Date: 07/27/2023 16:57
[2023-07-27 16:47] LABS: Glucometer 253 mg/dL (74-106)
[2023-07-27 21:44] LABS: Glucometer 341 mg/dL (74-106)
[2023-07-27] MEDS: INSULIN DETEMIR 300 UNIT/3 ML INSULN.PEN 20 UNIT SUBQ (21:46)
[2023-07-28] VITALS (62 sets, daily range): BP systolic 123–141; BP diastolic 69–96; PULSE 63–98; RESP 14–150; TEMP 36.2–36.6; O2SAT 86–96
[2023-07-28] MEDS: METHYLPREDNISOLONE SOD SUCC PF 125 MG/2 ML VIAL IVP ×4 (01:03→17:43)
[2023-07-28] MEDS: IPRATROPIUM/ALBUTEROL SULFATE 3 ML AMPUL.NEB IH ×6 (03:45→23:28)
[2023-07-28 05:24] LABS: Basophils Percent Auto 0.1 % (0.2-2.0); Eosinophils Percent Auto 0.1 % (0.9-7.0); Hematocrit 52.6 % (36.0-48.0); Hemoglobin 15.9 g/dL (12.0-16.0); Immature Granulocytes Pct Auto 0.7 % (0.0-0.5); Lymphocytes Absolute Auto 0.6 10^3/uL (1.2-3.8); Mean Corpuscular HGB Conc 30.2 g/dL (29.9-35.2); Mean Corpuscular Hemoglobin 30.2 pg (26.7-34.0); Mean Corpuscular Volume 99.8 fL (81.0-99.0); Mean Platelet Volume 10.3 fL (9.5-13.5); Monocytes Absolute Auto 0.4 10^3/uL (0.3-0.8); Monocytes Percent Auto 3.1 % (1.7-12.0); Neutrophils Absolute Auto 12.9 10^3/uL (1.4-6.5); Platelet Count 267 10^3/uL (150-450); Red Blood Count 5.27 10^6/uL (4.20-5.40); Red Cell Distribution Width 13.4 % (11.0-15.0)
[2023-07-28 05:34] LABS: Alanine Aminotransferase 7 U/L (14-59); Albumin Globulin Ratio 0.6; Albumin Level 2.9 g/dL (3.4-5.0); Alkaline Phosphatase 63 U/L (46-116); Anion Gap 4.6; Aspartate Amino Transferase 9 U/L (15-37); BUN Creatinine Ratio 24.4; Bilirubin Total 0.3 mg/dL (0.2-1.0); Calcium 8.6 mg/dL (8.5-10.1); Carbon Dioxide 40.5 mmol/L (21.0-32.0); Chloride 95 mmol/L (98-107); Estimated GFR (African America >60 (>=60); Estimated GFR (Non-African Ame >60 (>=60); Globulin 4.8 g/dL; Glucose 213 mg/dL (74-106); Potassium 4.1 mmol/L (3.5-5.1); Sodium 136 mmol/L (136-145); Total Protein 7.7 g/dL (6.4-8.2)
[2023-07-28 06:01] LABS: Estimated Average Glucose 174 mg/dL; Glycohemoglobin A1C 7.7 % (4.5-6.2)
[2023-07-28] MEDS: FUROSEMIDE 40 MG/4 ML VIAL IVP ×2 (06:49→17:43)
[2023-07-28 07:39] LABS: Glucometer 251 mg/dL (74-106)
[2023-07-28] MEDS: INSULIN ASPART 300 UNIT/3 ML PEN SUBQ ×4 (08:03→22:20)
[2023-07-28] MEDS: AZITHROMYCIN 250 MG TABLET 500 MG PO (08:03)
[2023-07-28] MEDS: ENOXAPARIN SODIUM 40 MG/0.4 ML SYRINGE SUBQ (08:03)
[2023-07-28] MEDS: VERAPAMIL HCL ER 240 MG TABLET PO (08:04)
--- NOTE | 2023-07-28 08:30 | P.PN_ITS ---
Progress Note: Subjective Subjective Interval history: patient is sitting in chair, patient is currently using Vapotherm and reports some improvement. She has been wearing BiPAP at night and has been tolerating well. She denies any chest pain and says shortness of breath has improved. She also denies any nausea vomiting fever or chills. Exam Narrative Exam Narrative: General: Patient is alert, and oriented to person, place and time with normal affect, proper hygiene Skin: no visible rashes, or ulcers Head: atraumatic, acephalic Eyes: PERRLA, no nystagmus present, conjunctiva clear, no scleral icterus Ears: normal gross auditory acuity Heart: Normal rate and rhythm, no murmurs/rubs/gallops Lungs: audible wheezes, no crackles and dminished breath sounds all lung pan Abdomen: Normal audible bowel sounds, no distension, No palpable masses, no organomegaly, no rebound/guarding/ or rigidity Musculoskeletal: +2 swelling bilateral lower extremities Neuro: CN II-X grossly intact, normal sensation upper and lower extremities Constitutional Vital Signs, click to edit/add: Last Vital Signs Temp 97.8 F 07/28/23 03:00 Pulse 84 07/28/23 07:59 Resp 20 07/28/23 06:11 BP 131/84 07/28/23 06:11 Pulse Ox 96 07/28/23 07:59 O2 Del Method Vapotherm 07/28/23 07:59 O2 Flow Rate 30 07/28/23 07:59 FiO2 80 07/28/23 07:59 Progress Note: Objective Labs Labs: Short CBC 07/28/23 Range/Units 04:31 WBC 14.0 H (4.0-11.0) 10^3/uL Hgb 15.9 (12.0-16.0) g/dL Hct 52.6 H (36.0-48.0) % Plt Count 267 (150-450) 10^3/uL BMP 07/28/23 04:31 Sodium 136 Potassium 4.1 Chloride 95 L Carbon Dioxide 40.5 H BUN 21.0 H Creatinine 0.86 Glucose 213 H Calcium 8.6 Liver Function 07/28/23 Range/Units 04:31 Total Bilirubin 0.3 (0.2-1.0) mg/dL AST 9 L (15-37) U/L ALT 7 L (14-59) U/L Alkaline Phosphatase 63 (46-116) U/L Albumin 2.9 L (3.4-5.0) g/dL Progress Note: A&P Assessment and Plan (1) Community acquired pneumonia: Assessment and Plan: positive rhinovirus, but will continue to treat with azithromycin for secondary bacterial cause. (2) Unspecified asthma with (acute) exacerbation: Assessment and Plan: pulmonary consultation and note reviewed, magnesium within normal range so no further magnesium is given. Will continue steroids, inhalers and nebulizer treatments. (3) Sepsis: Assessment and Plan: hemodynamically stable, secondary to viral pneumonia probable secondary tao terial pneumonia. (4) Respiratory failure with hypoxia: Assessment and Plan: echocardiogram pending. CTA showed some pulmonary edema (5) HTN (hypertension): Assessment and Plan: stable on home medications, hold hydrochlorothiazide secondary to renal function and the use of IV Lasix. (6) Diabetes: Assessment and Plan: SI while inpatient. added levemir 20 units for night. Check A1C 7.7 . FSBS a danae goal partly due to steroids. Qualifiers: Diabetes mellitus long-term insulin use: without intermediate manager use Diabetes mellitus type: type 2 (7) Rhinovirus infection: Assessment and Plan: resulting in asthma exacerbation, hypoxia (8) Right-sided heart failure: Assessment and Plan: echo pending, lasix 40mg IV BID helping edema and respiratory symptoms. elevated proBNP of 508 Plan patient is a full code continue Lovenox for deep vein thrombosis prophylaxis Patient is an inpatient status is expected to stay a few more days secondary to her respiratory status.
[2023-07-28] MEDS: BUDESONIDE 0.5 MG/2 ML AMPULE NEB IH ×2 (11:08→23:27)
[2023-07-28 11:28] LABS: Glucometer 303 mg/dL (74-106)
[2023-07-28 16:49] LABS: Glucometer 311 mg/dL (74-106)
[2023-07-28 20:26] LABS: Glucometer 336 mg/dL (74-106)
[2023-07-28] MEDS: INSULIN DETEMIR 300 UNIT/3 ML INSULN.PEN 20 UNIT SUBQ (22:19)
[2023-07-29] VITALS (66 sets, daily range): BP systolic 123–148; BP diastolic 61–88; PULSE 64–95; RESP 4–150; TEMP 36.3–36.6; O2SAT 86–97
[2023-07-29] MEDS: IPRATROPIUM/ALBUTEROL SULFATE 3 ML AMPUL.NEB IH ×6 (03:56→23:42)
[2023-07-29 04:42] LABS: Basophils Percent Auto 0.1 % (0.2-2.0); Eosinophils Percent Auto 0.1 % (0.9-7.0); Hematocrit 53.2 % (36.0-48.0); Hemoglobin 16.4 g/dL (12.0-16.0); Immature Granulocytes Abs Auto 0.09 10^3/uL (0.00-0.03); Immature Granulocytes Pct Auto 0.8 % (0.0-0.5); Lymphocytes Absolute Auto 0.5 10^3/uL (1.2-3.8); Lymphocytes Percent Auto 3.9 % (20.5-60.0); Mean Corpuscular HGB Conc 30.8 g/dL (29.9-35.2); Mean Corpuscular Hemoglobin 30.5 pg (26.7-34.0); Mean Corpuscular Volume 98.9 fL (81.0-99.0); Mean Platelet Volume 10.4 fL (9.5-13.5); Monocytes Absolute Auto 0.4 10^3/uL (0.3-0.8); Monocytes Percent Auto 3.2 % (1.7-12.0); Neutrophils Absolute Auto 10.8 10^3/uL (1.4-6.5); Neutrophils Percent Auto 91.9 % (43.0-75.0); Platelet Count 270 10^3/uL (150-450); Red Blood Count 5.38 10^6/uL (4.20-5.40); Red Cell Distribution Width 13.4 % (11.0-15.0); White Blood Count 11.7 10^3/uL (4.0-11.0)
[2023-07-29 05:08] LABS: Alanine Aminotransferase 20 U/L (14-59); Albumin Globulin Ratio 0.7; Albumin Level 3.1 g/dL (3.4-5.0); Alkaline Phosphatase 65 U/L (46-116); Anion Gap 5.4; Aspartate Amino Transferase 9 U/L (15-37); BUN Creatinine Ratio 26.4; Bilirubin Total 0.4 mg/dL (0.2-1.0); Calcium 8.8 mg/dL (8.5-10.1); Carbon Dioxide 41.6 mmol/L (21.0-32.0); Chloride 93 mmol/L (98-107); Estimated GFR (African America >60 (>=60); Estimated GFR (Non-African Ame >60 (>=60); Globulin 4.7 g/dL; Glucose 244 mg/dL (74-106); Sodium 136 mmol/L (136-145); Total Protein 7.8 g/dL (6.4-8.2)
[2023-07-29] MEDS: METHYLPREDNISOLONE SOD SUCC PF 125 MG/2 ML VIAL IVP ×4 (05:54→18:09)
[2023-07-29] MEDS: FUROSEMIDE 40 MG/4 ML VIAL IVP ×2 (05:54→18:09)
[2023-07-29 07:08] LABS: Glucometer 245 mg/dL (74-106)
--- NOTE | 2023-07-29 07:40 | PM.PN ---
Progress Note: Subjective Subjective Interval history: patient is sitting in chair, patient is currently using Vapotherm and reports good improvement since yesterday. She has been wearing BiPAP at night and has been tolerating well. She denies any chest pain and says shortness of breath has improved. She also denies any nausea vomiting fever or chills. Discussed with her plan for Cardiology consult tomorrow, and hopefully Echo will be read. She has tried and failed ALEXX/lisinopril with cough so she does not want to start. Exam Narrative Exam Narrative: General: Patient is alert, and oriented to person, place and time with normal affect, proper hygiene Skin: no visible rashes, or ulcers Head: atraumatic, acephalic Eyes: PERRLA, no nystagmus present, conjunctiva clear, no scleral icterus Ears: normal gross auditory acuity Heart: Normal rate and rhythm, no murmurs/rubs/gallops Lungs: audible wheezes but improved from yesterday, no crackles and diminished breath sounds all lung pan Abdomen: Normal audible bowel sounds, no distension, No palpable masses, no organomegaly, no rebound/guarding/ or rigidity Musculoskeletal: +2 swelling bilateral lower extremities Neuro: CN II-X grossly intact, normal sensation upper and lower extremities Constitutional Vital Signs, click to edit/add: Last Vital Signs Temp 97.1 F L 07/28/23 23:00 Pulse 94 H 07/29/23 07:30 Resp 17 07/29/23 07:09 BP 148/80 H 07/29/23 07:09 Pulse Ox 95 07/29/23 07:00 O2 Del Method Vapotherm 07/29/23 07:00 O2 Flow Rate 30 07/29/23 07:00 FiO2 60 07/29/23 07:00 Progress Note: Objective Labs Labs: Short CBC 07/29/23 Range/Units 04:18 WBC 11.7 H (4.0-11.0) 10^3/uL Hgb 16.4 H (12.0-16.0) g/dL Hct 53.2 H (36.0-48.0) % Plt Count 270 (150-450) 10^3/uL BMP 07/29/23 04:18 Sodium 136 Potassium 4.0 Chloride 93 L Carbon Dioxide 41.6 H BUN 24.0 H Creatinine 0.91 Glucose 244 H Calcium 8.8 Liver Function 07/29/23 Range/Units 04:18 Total Bilirubin 0.4 (0.2-1.0) mg/dL AST 9 L (15-37) U/L ALT 20 (14-59) U/L Alkaline Phosphatase 65 (46-116) U/L Albumin 3.1 L (3.4-5.0) g/dL Progress Note: A&P Assessment and Plan (1) Community acquired pneumonia: Assessment and Plan: positive rhinovirus, but will continue to treat with azithromycin for secondary bacterial cause. (2) Unspecified asthma with (acute) exacerbation: Assessment and Plan: pulmonary consultation and note reviewed, magnesium within normal range so no further magnesium is given. Will continue steroids, inhalers and nebulizer treatments. (3) Sepsis: Assessment and Plan: hemodynamically stable, secondary to viral pneumonia probable secondary bacterial pneumonia. (4) Respiratory failure with hypoxia: Assessment and Plan: echocardiogram pending. CTA showed some pulmonary edema, continue lasix 40mg BID (5) HTN (hypertension): Assessment and Plan: stable on home medications, hold hydrochlorothiazide secondary to renal function and the use of IV Lasix. (6) Diabetes: Assessment and Plan: SSI while inpatient. added levemir 20 units for night. Check A1C 7.7 . FSBS above goal partly due to steroids. Qualifiers: Diabetes mellitus intermediate insulin use: without parts counterman use Diabetes mellitus type: type 2 (7) Rhinovirus infection: Assessment and Plan: resulting in asthma exacerbation, hypoxia (8) Right-sided heart failure: Assessment and Plan: echo pending, lasix 40mg IV BID helping edema and respiratory symptoms. elevated proBNP of 508, cards consultation tomorrow Plan patient is a full code continue Lovenox for deep vein thrombosis prophylaxis Patient is an inpatient status is expected to stay a few more days secondary to her respiratory status.
[2023-07-29] MEDS: INSULIN ASPART 300 UNIT/3 ML PEN SUBQ ×4 (08:11→21:46)
[2023-07-29] MEDS: VERAPAMIL HCL ER 240 MG TABLET PO (08:11)
[2023-07-29] MEDS: AZITHROMYCIN 250 MG TABLET 500 MG PO (08:11)
[2023-07-29] MEDS: ENOXAPARIN SODIUM 40 MG/0.4 ML SYRINGE SUBQ (08:12)
[2023-07-29] MEDS: BUDESONIDE 0.5 MG/2 ML AMPULE NEB IH ×2 (10:12→23:42)
[2023-07-29 11:15] LABS: Glucometer 273 mg/dL (74-106)
[2023-07-29 13:48] LABS: Magnesium 2.1 mg/dL (1.8-2.4)
--- NOTE | 2023-07-29 15:24 | RESP.RT ---
Increasaed FiO2 to 45% from 30% due to dropping SpO2
--- NOTE | 2023-07-29 15:27 | RESP.RT ---
Pt on bipap
[2023-07-29 15:32] LABS: Glucometer 332 mg/dL (74-106)
[2023-07-29 21:45] LABS: Glucometer 296 mg/dL (74-106)
[2023-07-29] MEDS: INSULIN DETEMIR 300 UNIT/3 ML INSULN.PEN 20 UNIT SUBQ (21:45)
[2023-07-30] VITALS (65 sets, daily range): BP systolic 114–130; BP diastolic 60–87; PULSE 70–100; RESP 6–97; TEMP 36.5–36.8; O2SAT 85–94
[2023-07-30] MEDS: METHYLPREDNISOLONE SOD SUCC PF 125 MG/2 ML VIAL IVP ×4 (00:04→17:38)
[2023-07-30] MEDS: IPRATROPIUM/ALBUTEROL SULFATE 3 ML AMPUL.NEB IH ×6 (03:57→22:58)
[2023-07-30 05:32] LABS: Basophils Percent Auto 0.1 % (0.2-2.0); Hematocrit 54.4 % (36.0-48.0); Immature Granulocytes Abs Auto 0.09 10^3/uL (0.00-0.03); Lymphocytes Absolute Auto 0.4 10^3/uL (1.2-3.8); Lymphocytes Percent Auto 4.9 % (20.5-60.0); Mean Corpuscular HGB Conc 31.3 g/dL (29.9-35.2); Mean Corpuscular Hemoglobin 30.6 pg (26.7-34.0); Mean Corpuscular Volume 97.8 fL (81.0-99.0); Mean Platelet Volume 10.4 fL (9.5-13.5); Monocytes Absolute Auto 0.4 10^3/uL (0.3-0.8); Neutrophils Absolute Auto 8.1 10^3/uL (1.4-6.5); Platelet Count 248 10^3/uL (150-450); Red Blood Count 5.56 10^6/uL (4.20-5.40); Red Cell Distribution Width 13.3 % (11.0-15.0)
[2023-07-30 05:58] LABS: Alanine Aminotransferase 17 U/L (14-59); Albumin Globulin Ratio 0.7; Alkaline Phosphatase 65 U/L (46-116); Anion Gap 4.6; Aspartate Amino Transferase 9 U/L (15-37); BUN Creatinine Ratio 28.7; Bilirubin Total 0.5 mg/dL (0.2-1.0); Calcium 8.6 mg/dL (8.5-10.1); Carbon Dioxide 42.2 mmol/L (21.0-32.0); Chloride 92 mmol/L (98-107); Estimated GFR (African America >60 (>=60); Estimated GFR (Non-African Ame >60 (>=60); Globulin 4.5 g/dL; Glucose 335 mg/dL (74-106); Potassium 3.8 mmol/L (3.5-5.1); Sodium 135 mmol/L (136-145); Total Protein 7.5 g/dL (6.4-8.2)
[2023-07-30] MEDS: FUROSEMIDE 40 MG/4 ML VIAL IVP ×2 (06:59→17:38)
--- NOTE | 2023-07-30 07:13 | RESP.RT ---
Pt on bipap
--- NOTE | 2023-07-30 07:50 | P.PLPN_ITS ---
Progress Note: A&P Assessment and Plan (1) Unspecified asthma with (acute) exacerbation: Assessment and Plan: 1. Acute exacerbation of asthma (unspecified). Provoked by rhinovirus. Remains bronchospastic, though wheezes are beginning to decrease. Continue steroids, bronchodilators, supportive care. 2. Acute viral pneumonia secondary to rhinovirus. CTA shows infiltrates consistent with a viral pneumonia. No targeted treatment - continue supportive care. 3. Acute hypoxic respiratory failure. Secondary to the above. Suspect cardiac component as well. Remains on Vapotherm, BiPAP. Had time on traditional nasal cannula yesterday, but that was at 7L/min. 4. Chronic hypercapnic respiratory failure. Consistent with obestity- hypoventilation syndrome. Worsening HCO3- combination of post-hypercapnic metabolic alkalosis +/- contraction alkalosis from diuresis. 5. Diabetes mellitus type 2. Continue monitoring FSBS, insulin. 6. Edema. Question right-sided involvement. Echocardiogram pending. 7. Tobacco abuse. Smoking cessation. 8. Morbid obesity with BMI 51.7. Weight loss! Subjective Subjective Interval history: Patient is showing signs of clinical improvement since last seen, but still is requiring BiPAP and Vapotherm support. She states she feels less tight and wheezy compared to last visit. She denies chest pain. Culture positive for rhinovirus. Echo report pending. Exam Constitutional Vital Signs, click to edit/add: Last Vital Signs Temp 98.2 F 07/30/23 00:57 Pulse 82 07/30/23 07:06 Resp 16 07/30/23 05:00 BP 121/82 07/30/23 04:42 Pulse Ox 93 L 07/30/23 07:06 O2 Del Method BIPAP 07/30/23 07:06 O2 Flow Rate 30 07/30/23 01:30 FiO2 45 07/30/23 07:06 Documenting provider has reviewed patient's vital signs: yes Common normals: no apparent distress General appearance: cooperative and comfortable Nutritional appearance: obese HENMT Other: Wearing BiPAP mask Chest Common normals: inspection of chest normal Other: Thoracic kyphosis Respiratory Other: Breathing is not labored. On BiPAP. More air movement today. Still has expiratory wheezes and squeaks, but less than when I originalyl saw her. No rhonchi. Cardio Rate: regular rate Rhythm: regular rhythm GI Inspection: central obesity Extremity General: edema Neuro Sensorium/orientation: awake and alert Psych Attitude: calm
[2023-07-30 07:52] LABS: Glucometer 291 mg/dL (74-106)
[2023-07-30] MEDS: INSULIN ASPART 300 UNIT/3 ML PEN SUBQ ×4 (08:11→22:05)
--- NOTE | 2023-07-30 08:25 | P.PN_ITS ---
Progress Note: Subjective Subjective Interval history: patient is sitting in chair, patient is currently using Vapotherm and reports good improvement since yesterday. She has been wearing BiPAP at night and has been tolerating well. She denies any chest pain and says shortness of breath has improved. She also denies any nausea vomiting fever or chills. Discussed with her plan for Cardiology consult today, and hopefully Echo will be read. She has tried and failed ALEXX/lisinopril with cough so she does not want to start. Lasix seems to be helping lower ext edema. She reports frustration/depression but knows her body needs time. Exam Narrative Exam Narrative: General: Patient is alert, and oriented to person, place and time with normal affect, proper hygiene Skin: no visible rashes, or ulcers Head: atraumatic, acephalic Eyes: PERRLA, no nystagmus present, conjunctiva clear, no scleral icterus Ears: normal gross auditory acuity Heart: Normal rate and rhythm, no murmurs/rubs/gallops Lungs: audible wheezes but improved from yesterday, no crackles and diminished breath sounds all lung pan Abdomen: Normal audible bowel sounds, no distension, No palpable masses, no organomegaly, no rebound/guarding/ or rigidity Musculoskeletal: +2 swelling bilateral lower extremities with stasis dermatitis Neuro: CN II-X grossly intact, normal sensation upper and lower extremities Constitutional Vital Signs, click to edit/add: Last Vital Signs Temp 97.7 F 07/30/23 08:00 Pulse 88 07/30/23 08:00 Resp 20 07/30/23 06:30 BP 130/87 07/30/23 08:00 Pulse Ox 92 L 07/30/23 08:00 O2 Del Method BIPAP 07/30/23 07:06 O2 Flow Rate 30 07/30/23 08:00 FiO2 50 07/30/23 08:00 Progress Note: Objective Labs Labs: Short CBC 07/30/23 Range/Units 05:13 WBC 9.0 (4.0-11.0) 10^3/uL Hgb 17.0 H (12.0-16.0) g/dL Hct 54.4 H (36.0-48.0) % Plt Count 248 (150-450) 10^3/uL BMP 07/30/23 05:13 Sodium 135 L Potassium 3.8 Chloride 92 L Carbon Dioxide 42.2 H BUN 27.0 H Creatinine 0.94 Glucose 335 H Calcium 8.6 Liver Function 07/30/23 Range/Units 05:13 Total Bilirubin 0.5 (0.2-1.0) mg/dL AST 9 L (15-37) U/L ALT 17 (14-59) U/L Alkaline Phosphatase 65 (46-116) U/L Albumin 3.0 L (3.4-5.0) g/dL Progress Note: A&P Assessment and Plan (1) Unspecified asthma with (acute) exacerbation: Assessment and Plan: positive rhinovirus, but will continue to treat with azithromycin for secondary bacterial cause. pulmonary consultation and note reviewed, magnesium within normal range so no further magnesium is given. Will continue steroids, inhalers and nebulizer treatments. patient just needs time. (2) Rhinovirus infection: Assessment and Plan: symptom treatment only (3) Respiratory failure with hypoxia: Assessment and Plan: echocardiogram pending. CTA showed some pulmonary edema so cardiac component, continue lasix 40mg BID (4) HTN (hypertension): Assessment and Plan: stable on home medications, hold hydrochlorothiazide secondary to renal function and the use of IV Lasix (5) Diabetes: Assessment and Plan: SSI while inpatient. added levemir 20 units for night. Check A1C 7.7 . FSBS above goal partly due to steroids. Qualifiers: Diabetes mellitus type: type 2 Diabetes mellitus roasterman insulin use: without roasterman use (6) Right-sided heart failure: Assessment and Plan: echo pending, lasix 40mg IV BID helping edema and respiratory symptoms. elevated proBNP of 508, cards consultation, this is new onset, history of murmur as child, PFO? obesity, underlying severe ANSHUL? Plan patient is a full code continue Lovenox for deep vein thrombosis prophylaxis Patient is an inpatient status is expected to stay a few more days secondary to her respiratory status.
[2023-07-30] MEDS: VERAPAMIL HCL ER 240 MG TABLET PO (09:00)
[2023-07-30] MEDS: AZITHROMYCIN 250 MG TABLET 500 MG PO (09:00)
[2023-07-30] MEDS: ENOXAPARIN SODIUM 40 MG/0.4 ML SYRINGE SUBQ (09:00)
[2023-07-30] MEDS: BUDESONIDE 0.5 MG/2 ML AMPULE NEB IH ×2 (10:32→22:58)
--- NOTE | 2023-07-30 10:43 | CM.NOTE ---
Rounds made with Dr. Guzmán, no discharge today. PT will be ordered to evaluate pt.
[2023-07-30 11:32] LABS: Glucometer 323 mg/dL (74-106)
--- NOTE | 2023-07-30 15:14 | RESP.RT ---
titrated down to 35%
[2023-07-30 16:08] LABS: Glucometer 297 mg/dL (74-106)
--- NOTE | 2023-07-30 18:18 | P.CACN_ITS ---
History of Present Illness History of Present Illness Consult date: 07/30/23 Requesting physician: Shannon Guzmán Consult reason: congestive heart failure Chief complaint: SHORTNESS OF BREATH, Pneumonia, COPD Exacerbation Narrative: Ms. Boothe is a 47-year-old female with a past medical history including hypertension, previous tobacco abuse, COPD, asthma, and a reported history of a hole in her heart. Patient presented to the hospital with complaints of worsening shortness of breath. She was found to have pneumonia and is currently being treated for infection and COPD exacerbation. Cardiology was consulted for abnormal echocardiogram findings. On echocardiogram, patient had a normal LVEF. She had a severely dilated RV with reduced RV function. RA was also severely dilated. RVSP was estimated to be 99 mmHg. Patient was interviewed and examined. Patient denies any cardiac history aside from whole 's in her heart. She is unable to provide any additional information about this diagnosis. She states she had an echocardiogram performed at age of 14, and was told everything was okay at that point. She has not had an echocardiogram repeated since that time. She states that in the past 6 or 7 months prior to this illness, she had been feeling increasingly short of breath. She endorses lower extremity edema, orthopnea, and paroxysmal nocturnal dyspnea. She adamantly denies any chest pain. She states that she was placed on hydrochlorothiazide for her blood pressure, but admits that it has not done much for her swelling. She denies any additional cardiac complaints or concerns. She denies any additional cardiac history. No history of [place], CHF, CVA, PCI. She denies any previous history of DVT or PE. She does reports having a hypercoagulable state (MTHFR gene mutation) for which she is on aspirin. She denies any family history of pulmonary hypertension. Review of Systems ROS Status of ROS 10 or more systems reviewed and unremarkable except as noted in history and below [facility] Medical History delivery delivered ?O82 - Encounter for delivery without indication (ICD-10) COPD (chronic obstructive pulmonary disease) ?J44.9 - Chronic obstructive pulmonary disease, unspecified (ICD-10) Diabetes ?E11.9 - Type 2 diabetes mellitus without complications (ICD-10) HTN (hypertension) ?I10 - Essential (primary) hypertension (ICD-10) Surgical History H/O: ?Z98.891 - History of uterine scar from previous surgery (ICD-10) Family History Mother Family history of CHF (congestive heart failure) Family history of COPD (chronic obstructive pulmonary disease) Family history of hypertension Family history of myocardial infarction Brother Family history of COPD (chronic obstructive pulmonary disease) Father Family history of cancer Grandfather Family history of diabetes mellitus Social History (Updated 07/26/23 @ 11:17 by Shaikh Carlyle MD) Within the past year, how often did you have a drink containing alcohol: never Within the past year, how many standard drinks containing alcohol did you have on a typical day: 1 or 2 Within the past year, how often did you have six or more drinks on one occasion: never Total score: 0 Score interpretation: A score less than 3 is consistent with normal alcohol consumption. Smoking status: Current every day smoker Non-prescribed substance use: denies use Meds Home Medications and Allergies Home Medications Medication Instructions Recorded Confirmed Type albuterol 90 mcg/actuation aerosol 90 mcg inhalation QID PRN 07/25/23 07/25/23 History inhaler shortness of breath or wheezing hydrochlorothiazide 25 mg tablet 25 mg PO QAM 07/25/23 07/25/23 History verapamil 240 mg 24 hr 240 mg PO .QHS 07/25/23 07/25/23 History capsule,extended release Allergies Allergy/AdvReac Type Severity Reaction Status Date / Time Penicillins Allergy Intermediate Rash Verified 07/25/23 12:33 sulfamethoxazole Allergy Intermediate Agitated Verified 07/25/23 12:33 [From Bactrim] trimethoprim [From Bactrim] Allergy Intermediate Agitated Verified 07/25/23 12:33 Exam Constitutional Vital Signs, click to edit/add: Last Vital Signs Temp 97.9 F 07/30/23 16:00 Pulse 83 07/30/23 18:00 Resp 13 07/30/23 16:30 BP 125/69 07/30/23 17:38 Pulse Ox 89 L 07/30/23 18:00 O2 Del Method Vapotherm 07/30/23 15:10 O2 Flow Rate 30 07/30/23 16:30 FiO2 35 07/30/23 16:30 Common normals: no apparent distress and oriented x3 General appearance: cooperative and comfortable Nutritional appearance: obese Orientation/consciousness: Yes awake, Yes oriented to person, Yes oriented to place and Yes oriented to time HENMT Common normals: normocephalic and head/scalp atraumatic Head and scalp: normocephalic and atraumatic Face and sinus: face symmetric Nose: external nose normal External ear: external ears normal Eye Common normals: PERRL and EOMs intact bilaterally Chest Chest: symmetrical chest wall rise Respiratory Auscultation: crackles Cardio Common normals: regular rate, regular rhythm, S1 normal heart sound and S2 normal heart sound Rhythm: regular rhythm GI Common normals: Normal to inspection, nondistended, normoactive bowel sounds present Extremity General: edema Neuro Common normals: oriented x3 and moves all extremities Psych Appearance: grossly normal Attitude: engaged Judgement: judgment good Results Labs and Meds Lab results: Cardiac Enzymes 07/30/23 Range/Units 05:13 AST 9 L (15-37) U/L CBC 07/30/23 Range/Units 05:13 WBC 9.0 (4.0-11.0) 10^3/uL RBC 5.56 H (4.20-5.40) 10^6/uL Hgb 17.0 H (12.0-16.0) g/dL Hct 54.4 H (36.0-48.0) % Plt Count 248 (150-450) 10^3/uL Neut # (Auto) 8.1 H (1.4-6.5) 10^3/uL Lymph # (Auto) 0.4 L (1.2-3.8) 10^3/uL Yancey # (Auto) 0.4 (0.3-0.8) 10^3/uL Eos # (Auto) 0.0 (0.0-0.7) 10^3/uL Baso # (Auto) 0.0 (0.0-0.1) 10^3/uL Comprehensive Metabolic Panel 07/30/23 Range/Units 05:13 Sodium 135 L (136-145) mmol/L Potassium 3.8 (3.5-5.1) mmol/L Chloride 92 L (98-107) mmol/L Carbon Dioxide 42.2 H (21.0-32.0) mmol/L BUN 27.0 H (7.0-18.0) mg/dL Creatinine 0.94 (0.55-1.02) mg/dL Glucose 335 H (74-106) mg/dL Calcium 8.6 (8.5-10.1) mg/dL AST 9 L (15-37) U/L ALT 17 (14-59) U/L Alkaline Phosphatase 65 (46-116) U/L Total Protein 7.5 (6.4-8.2) g/dL Albumin 3.0 L (3.4-5.0) g/dL Intake and Output 07/30/23 07/30/23 07/30/23 07:59 15:59 23:59 Intake Total 1280 / 1280 Output Total 2150 / 2150 Balance -870 / -870 Intake: Oral 1280 / 1280 Output: Urine 2149 / 0 Imaging and Cardiology Echo: report reviewed Assessment and Plan Assessment and Plan (1) Unspecified asthma with (acute) exacerbation: (2) Rhinovirus infection: (3) Respiratory failure with hypoxia: (4) HTN (hypertension): (5) Diabetes: Qualifiers: Diabetes mellitus type: type 2 Diabetes mellitus longterm insulin use: without longterm use (6) Right-sided heart failure: Plan -Patient has severe RV dilation, severe RA dilation, reduced RV function, and severely elevated pressure at 99 mmHg -Acute PE has been ruled out by CT -Given severe RA dilation, this is likely chronic in nature. -Unclear etiology. Could be related to underlying lung process including asthma/COPD/ANSHUL vs Pulmonary Hypertension -Patient will require additional testing for pulmonary hypertension, in addition to further imaging to assess for PFO/ASD that could be contributing. -Would recommend diuresing until euvolemic and repeating echocardiogram. If pressures remain severely elevated, would recommend transfer for inpatient right heart catheterization in addition to additional imaging and possible initiation of therapy. If pressures improve, and if patient prefers outpatient evaluation, necessary to arrange for very close cardiac follow-up for further testing -Patient is diuresing well at this time. Continue current diuretic regimen -Emphasized importance of smoking cessation, in addition to outpatient sleep apnea testing. Patient voices understanding -Patient has nonspecific changes on her EKG. She adamantly denies any chest pain. Would consider outpatient ischemic evaluation if in patient has any symptoms. -Treatment of underlying lung process as per pulm and primary teams. Thank you for allowing us to participate in the care of this patient. Please do not hesitate to contact [facility] with any questions/concerns. Jong Jameson MD
--- NOTE | 2023-07-30 19:56 | PC.NURSE ---
Patient up to BSC in room at this time.
[2023-07-30 22:03] LABS: Glucometer 409 mg/dL (74-106)
[2023-07-30] MEDS: INSULIN DETEMIR 300 UNIT/3 ML INSULN.PEN 20 UNIT SUBQ (22:04)
--- NOTE | 2023-07-30 22:57 | RESP.RT ---
Increased flow up to 35L and Fi02 up to 50%.
[2023-07-31] VITALS (61 sets, daily range): BP systolic 128–140; BP diastolic 75–98; PULSE 68–101; RESP 0–134; TEMP 36.2–36.7; O2SAT 79–94
[2023-07-31] MEDS: METHYLPREDNISOLONE SOD SUCC PF 125 MG/2 ML VIAL IVP ×2 (00:24→06:49)
[2023-07-31] MEDS: IPRATROPIUM/ALBUTEROL SULFATE 3 ML AMPUL.NEB IH ×6 (03:48→23:06)
[2023-07-31] MEDS: FUROSEMIDE 40 MG/4 ML VIAL IVP ×2 (06:52→18:19)
--- NOTE | 2023-07-31 07:08 | RESP.RT ---
pt on bipap
[2023-07-31 07:56] LABS: Glucometer 235 mg/dL (74-106)
[2023-07-31] MEDS: INSULIN ASPART 300 UNIT/3 ML PEN SUBQ ×4 (08:01→21:07)
--- NOTE | 2023-07-31 08:36 | CA_ITS ---
Patient Name: DANIEL LYNN MR#: [id number] : 1975 Exam Date: 07/31/2023 Ordering Doctor: OLMAN MARISCAL . ECHOCARDIOGRAM REPORT PROCEDURE: CA ECHO DOPPLER COMPLETE INDICATIONS: cardiology wanted follow-up study after diuresis, Elevated right pressures COMPARISON: None. DESCRIPTION: COMPLETE ECHOCARDIOGRAM Real-time transthoracic echocardiography with 2D, M-mode, spectral and color flow Doppler performed. QUALITY: Technical quality was adequate. LEFT VENTRICLE: Normal chamber size. Borderline left ventricular hypertrophy. LV EF: Global left ventricular systolic function is normal. Visual estimation of left ventricular ejection fraction is 60-65%. D-shaped septum consistent with right ventricular pressure and/or volume overload. DIASTOLIC: Grade 2, moderate diastolic dysfunction. ATRIAL SEPTUM: Inadequately seen. LEFT ATRIUM: Mild dilatation. RIGHT ATRIUM: Severe dilatation. RIGHT VENTRICLE: Severe dilatation. Decreased right ventricular systolic function. TRICUSPID VALVE: Normal mobility and thickness. Moderate regurgitation. Severe pulmonary hypertension. RVSP 76mmHg MITRAL VALVE: Normal mobility and thickness. No evidence of mitral valve stenosis. Mild mitral annular calcification. Trivial mitral regurgitation. AORTIC VALVE: Normal trileaflet appearance. No visible sclerosis. Normal leaflet mobility. No evidence of aortic valve stenosis. No aortic regurgitation. AORTIC ROOT: Normal diameter and appearance. PULMONIC VALVE: Normal thickness and mobility. No stenosis. Trivial regurgitation. PERICARDIUM: No evidence of pericardial effusion. IVC: Collapses with inspirations. Moderately dilated measuring 2.8cm. CONCLUSION: 1. Global left ventricular systolic function is normal; visually estimated ejection fraction is 60 to 65% 2. D-shaped septum consistent with right ventricular pressure and/or volume overload 3. The right ventricle is severely dilated with severely reduced systolic function 4. Grade 2, moderate diastolic dysfunction 5. The right atrium is severely dilated 6. Moderate tricuspid regurgitation 7. Severely elevated right ventricular systolic pressure; RVSP 76 mmHg Adult Echocardiography Procedure Report Left Ventricle LVEDD (3.7 - 5.6 cm): 5.15 cm LVESD (2.2 - 4.0 cm): 3.90 cm LVIVS thickness (0.6 - 1.2 cm): 1.11 cm LVPW thickness (0.5 - 1.0 cm): 0.83 cm e': 0.06 m/s E - e': 15.66 LVOT Max Gradient: 1.65 mm[Hg] LVOT Area (cm2): 0.64 m/s Peak Velocity (LVOT): 0.64 m/s LVOT Diameter 2.13 cm Left Atrium LA Volume Index (2D A2C): 40.29 ml/m2 Left Atrium Systolic Dimension: 4.58 cm Mitral Valve MV E to A Ratio: 0.80 Mitral Valve A-Wave Peak Velocity: 1.26 m/s Mitral Valve E-Wave Peak Velocity: 1.01 m/s Right Ventricle RV Internal Diastolic Dimension: 5.19 cm Aorta AO Root Diam: 2.98 cm Ascending Ao Diam: 2.66 cm Aortic Valve AoV Area (Peak Armen): 1.91 cm2, 1.91 cm2 Peak Velocity(Antegrade Flow): 1.20 m/s Peak Gradient(Antegrade Flow): 5.76 mm[Hg] Tricuspid Valve Peak Velocity (Regurgitant Flow): 3.76 m/s, 3.81 m/s, 4.11 m/s, 4.02 m/s, 3.78 m/s Pulmonic Valve Mean Gradient: 4.62 mm[Hg], 3.94 mm[Hg] Mean Velocity: 1.00 m/s, 0.94 m/s Peak Velocity: 1.45 m/s, 1.85 m/s Peak Gradient: 13.64 mm[Hg], 8.91 mm[Hg], 7.91 mm[Hg] Right Atrium Right Atrium Systolic Pressure: 153.40 ml, 153.40 ml Dictated by: Wade Jennings M.D. on 07/31/2023 at 12:27 Approved by: Wade Jennings M.D. on 07/31/2023 at 12:32
--- NOTE | 2023-07-31 08:43 | PM.PN ---
Progress Note: Subjective Subjective Interval history: patient is sitting in chair, patient is currently using Vapotherm and reports good improvement in shortness of breath and feels lasix is improving her swelling. She has been wearing BiPAP at night and has been tolerating well. She denies any chest pain. She also denies any nausea vomiting fever or chills. Discussed plan with patient as Vest Busheler, Dr. Bauer also present. At this point her asthma symptoms have improved but she still remains hypoxic. Concrete Pump Operator came and did evaluation today. Her Echo showed significant elevated pulmonary artery pressure of 99 with severely dilated right heart, this was echo from 07/27/23. Since that time she has been on lasix 40mg IV BID. Per Cardiology recommendations, will repeat Echo today. If right sided pressure the same or worse despite diuresis discussed transfer with the patient to higher level care and right sided heart cath and she is amendable to this. Exam Narrative Exam Narrative: General: Patient is alert, and oriented to person, place and time with normal affect, proper hygiene Skin: no visible rashes, or ulcers Head: atraumatic, acephalic Eyes: PERRLA, no nystagmus present, conjunctiva clear, no scleral icterus Ears: normal gross auditory acuity Heart: Normal rate and rhythm, no murmurs/rubs/gallops Lungs: audible wheezes but improving, no crackles and diminished breath sounds all lung pan Abdomen: Normal audible bowel sounds, no distension, No palpable masses, no organomegaly, no rebound/guarding/ or rigidity Musculoskeletal: +1 swelling bilateral lower extremities with stasis dermatitis Neuro: CN II-X grossly intact, normal sensation upper and lower extremities Constitutional Vital Signs, click to edit/add: Last Vital Signs Temp 97.6 F 07/31/23 07:00 Pulse 90 07/31/23 08:00 Resp 15 07/31/23 07:30 BP 137/98 H 07/31/23 07:19 Pulse Ox 89 L 07/31/23 08:00 O2 Del Method BIPAP 07/31/23 07:01 O2 Flow Rate 35 07/31/23 02:38 FiO2 35 07/31/23 07:01 Progress Note: A&P Assessment and Plan (1) Unspecified asthma with (acute) exacerbation: Assessment and Plan: positive rhinovirus, but will continue to treat with azithromycin, tomorrow day 5 so will stop, for secondary bacterial cause. pulmonary consultation and note reviewed, magnesium within normal range so no further magnesium is given. Will continue steroids but decrease today as patient developing thrush and also getting improvement, continue inhalers and nebulizer treatments. It seems hypoxia may be coming from the right sided heart failure more so than asthma at this point. (2) Right-sided heart failure: Assessment and Plan: echocardiogram showed: 1. Global left ventricular systolic function is hyperdynamic; visually estimated ejection fraction is 65 to 70% 2. D-shaped septum consistent with right ventricular pressure and/or volume overload 3. The right ventricle is severely dilated with severely reduced systolic function 4. The right atrium is severely dilated 5. Moderate tricuspid regurgitation 6. Severely elevated right sided pressures; RVSP 99 mmHg 7. Trivial pericardial effusion. CTA showed some pulmonary edema, no evidence of PE, continue lasix 40mg BID, potassium level has been normal; repeat echo today, if pressures unchanged or worse, transfer to Acute Care facility for right sided heart Cath. Can be from ANSHUL, obesity, acute illness, ASthma/copd. Qualifiers: Heart failure chronicity: acute on chronic Qualified Code(s): I50.813 - Acute on chronic right heart failure (3) Rhinovirus infection: Assessment and Plan: symptom treatment only (4) Respiratory failure with hypoxia: Assessment and Plan: combination of #1 and #2 (5) HTN (hypertension): Assessment and Plan: table on home medications, hold hydrochlorothiazide secondary to renal function and the use of IV Lasix (6) Diabetes: Assessment and Plan: SSI while inpatient. added levemir 20 units for night. Check A1C 7.7 . FSBS above goal partly due to steroids. 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
[2023-07-31] MEDS: AZITHROMYCIN 250 MG TABLET 500 MG PO (09:05)
[2023-07-31] MEDS: VERAPAMIL HCL ER 240 MG TABLET PO (09:05)
[2023-07-31] MEDS: ENOXAPARIN SODIUM 40 MG/0.4 ML SYRINGE SUBQ (09:05)
--- NOTE | 2023-07-31 09:40 | P.PLPN_ITS ---
Progress Note: A&P Assessment and Plan (1) Unspecified asthma with (acute) exacerbation: Assessment and Plan: 1. Acute exacerbation of asthma (unspecified). Provoked by rhinovirus. Improved breath sounds today - more air movement, decreased wheezing. Given her DM2 and now oral candidiasis, will decrease SoluMedrol to 40mg IV Q8H and see how she does. 2. Acute viral pneumonia secondary to rhinovirus. Clinically improving. 3. Acute hypoxic respiratory failure. Continues to require high FiO2, back on Vapotherm FiO2 50%. As asthma & viral pneumonia are improving, yet patient is still requiring high FiO2, this suggests that the remnant hypoxia may be cardiac-driven, not pulmonary. If she stays, repeat CXR tomorrow. 4. Chronic hypercapnic respiratory failure. Consistent with obesity- hypoventilation syndrome. Elevated HCO3- secondary to post-hypercapnic metabolic alkalosis +/- contraction alkalosis from diuresis. She will need outpatient PSG testing for ANSHUL/OHS. 5. Diabetes mellitus type 2. Continue monitoring FSBS, insulin. Decrease SoluMedrol 6. Elevated right-sided cardiac pressures with right chamber dilation. Question group 1 pulmonary hypertension vs. other. ANSHUL would not cause such a high RVSP by itself. Will likely require RHC. 7. Oral candidiasis. Secondary to steroids +/- antibiotics. Rx Nystatin. 8. Tobacco abuse. Recommended smoking cessation again today. 9. Morbid obesity with BMI 51.7. Discused weight loss again today Plan Discussed case with Dr. Lucy Guzmán. If the hypoxia were purely pulmonary, she should be improving given decreased wheezing, increased air movement, and simply time of recovery from rhinovirus. Persistent/worsening O2 demands suggests non- pulmonary contribution. As RVSP was estimated 99mmHg on echocardiogram, even if there is chronicity to a degree, further examination, such as transfer to a tertiary care center for a RHC, may be indicated as there is little else I can offer from a pulmonary standpoint at this time. Otherwise, patient needs close pulmonary F/U with outpatient PFT, PSG. Needs smoking cessation and weight loss (lifestyle modifications). She needs to start a maintenance inhaler. Subjective Subjective Interval history: Patient states she is breathing about the same, if not slightly better, than yesterday. She is sitting up in the chair without respiratory distress. Discussed with RT. Vapotherm FiO2 was weaned down to 35% yesterday, but last evening, she desaturated, went back on BiPAP, and has transition back to Vapotherm, though requiring 50% FiO2 now. Echocardiogram noted significantly dilated right-sided chambers and high RVSP @ 99mmHg. She saw Cardiology - reviewed their consult note. May require transfer for RHC if repeat echo shows persistent or elevated RVSP; otherwise, continue diuresis and F/U outpatient for further w/up. Patient was seen in conjunction with Dr. Lucy Guzmán. Exam Constitutional Vital Signs, click to edit/add: Last Vital Signs Temp 97.6 F 07/31/23 07:00 Pulse 90 07/31/23 08:00 Resp 15 07/31/23 07:30 BP 137/98 H 07/31/23 09:05 Pulse Ox 89 L 07/31/23 08:00 O2 Del Method BIPAP 07/31/23 07:01 O2 Flow Rate 35 07/31/23 02:38 FiO2 35 07/31/23 07:01 Documenting provider has reviewed patient's vital signs: yes Common normals: no apparent distress General appearance: cooperative and comfortable; not in distress Nutritional appearance: obese HENMT Other: Mild posterior mucosal oral candidiasis Respiratory Other: Improved today. More breath sounds, markedly decreased expiratory wheezes - mild-moderately prominent with forced expiratory maneuver. No crackles or rhonchi. Cardio Rate: regular rate Rhythm: regular rhythm GI Inspection: central obesity Back & Pelvis Common normals: thoracic and lumbar spine normal to inspection Extremity General: edema (Present, but shows improvement ) Neuro Sensorium/orientation: awake and alert Psych Attitude: calm and engaged
--- NOTE | 2023-07-31 10:24 | CM.NOTE ---
Rounds made with Dr. Guzmán and Dr. Bauer, discussed plan of care with pt. Repeat echo today, if echo better than pt will remain at [facility]. If echo worse or unchanged will transfer to [facility] for R sided heart cath. Pt verbalizes understanding.
[2023-07-31] MEDS: BUDESONIDE 0.5 MG/2 ML AMPULE NEB IH ×2 (10:52→23:06)
[2023-07-31] MEDS: NYSTATIN 500,000 UNIT/5 ML ORAL.SUSP 500000 UNIT PO ×3 (11:46→21:10)
[2023-07-31 11:50] LABS: Glucometer 308 mg/dL (74-106)
--- NOTE | 2023-07-31 13:10 | PC.NURSE ---
[facility] PRINTED CIRCUIT BOARDS BEVELER at bedside and discussed transfer with patient for higher level of care. Patient is in agreeable at this time for transfer. Dr. Richie Guzmán at bedside and concerns were discussed with patient. Transfer process initiated with [facility].
--- NOTE | 2023-07-31 13:11 | PT.DAILY ---
Physical Therapy Daily Note PT Daily Note/Assess Start: 07/30/23 13:14 Freq: Status: Active Protocol: Document 07/31/23 12:25 [email or web address] (Rec: 07/31/23 13:11 [id number] [id number]) Physical Therapy Daily Note/Assessment Time In/Time Out Time In 12:25 Time Out 12:35 Subjective Subjective Agrees to PT. Denies complaints. Reports feeling better. Therapeutic Exercise Time Therapeutic Exercise Minutes (minutes) 10 Therapeutic Exercise Units 1 Therapeutic Exercise Treatment Therapeutic Exercise Treatment Patient completes 10 reps each of standing exercises at EOB. After 3 exercises SPO2 decreased to 83 percent. Standing rest break with patient focusing on breathing after 3 min SPO2 back to 89 percent, and able to finish last 3 exercises with SPO2 maintaining at 90 percent on vapo-therm. Therapeutic Activity Treatment Chair Transfer Ability Independent Therapeutic Activity Comments Gait in room was independent. Limited distance due to patient on vapo-therm today. Total Physical Therapy Time Total Therapy Minutes 10 Total Physical Therapy Units 1 Summary Daily Note Summary Patient had improved tolerance to exercises on vapo-therm this date vs. reg. O2. Did have to take 3 min standing rest break half way through exercise program. Gait was ind . and distance was limited due to being on vapo-therm.
--- NOTE | 2023-07-31 13:17 | P.CAPN_ITS ---
Progress Note: A&P Assessment and Plan (1) Unspecified asthma with (acute) exacerbation: (2) Right-sided heart failure: Qualifiers: Heart failure chronicity: acute on chronic Qualified Code(s): I50.813 - Acute on chronic right heart failure (3) Rhinovirus infection: (4) Respiratory failure with hypoxia: (5) HTN (hypertension): (6) Diabetes: Qualifiers: Diabetes mellitus director of recruitment insulin use: without director of recruitment use Diabetes mellitus type: type 2 Plan -Patient has severe RV dilation, severe RA dilation, reduced RV function, and severely elevated pressure at 99 mmHg -- she had repeat echo 07/31/23 and prelim findigs are similar with estimated RVSP in 70s -Acute PE has been ruled out by CT -Given severe RA dilation, this is likely chronic in nature. -Unclear etiology. Could be related to underlying lung process including asthma/COPD/ANSHUL vs Pulmonary Hypertension -Patient will require additional testing for pulmonary hypertension, in addition to further imaging to assess for PFO/ASD that could be contributing. -Would recommend ct diuresing until euvolemic and repeating echocardiogram but at this time given pressures remaining severely elevated, would recommend transfer for inpatient right heart catheterization in addition to additional imaging and possible initiation of therapy. -Continue current diuretic regimen -Emphasized importance of smoking cessation, in addition to outpatient sleep apnea testing. Patient voices understanding -Patient has nonspecific changes on her EKG. She adamantly denies any chest pain. Would consider ischemic evaluation if in patient has any symptoms when admitted to [facility] or consider lexiscan stress outpatient -Treatment of underlying lung process as per pulm and primary teams. Subjective Subjective Interval history: patient resting in chair on 'vapotherm' / high flow nasal cannula she is SOB and still requiring supplemental O2 via high flow she is visibly using accessory muscles despite diuresis i discussed with pt given prelim echo findings still showing severly elevated RVSP and she is still symptomatic that she would benefit from transfer to [facility] for RHC she is agreeable to plan she continues to endorse SOB, DASH , LE edema denies CP Exam Constitutional Vital Signs, click to edit/add: Last Vital Signs Temp 97.6 F 07/31/23 07:00 Pulse 91 H 07/31/23 12:30 Resp 17 07/31/23 12:30 BP 135/94 H 07/31/23 11:51 Pulse Ox 93 L 11/14/23 12:00 O2 Del Method Vapotherm 07/31/23 12:33 O2 Flow Rate 30 07/31/23 12:33 FiO2 45 07/31/23 12:33 Common normals: oriented x3 and alert General appearance: cooperative Orientation/consciousness: Yes awake, Yes oriented to person, Yes oriented to place and Yes oriented to time Respiratory Effort & inspection: able to speak in complete sentences, symmetric chest movement, tachypneic, labored and uses accessory muscles Auscultation: crackles and diminished lung sounds Other: diminished at bases, she struggles to take deep breaths and is takign short shallow breaths Extremity General: edema
[2023-07-31] MEDS: METHYLPREDNISOLONE SOD SUCC PF 40 MG/ML VIAL IVP ×2 (14:23→21:09)
--- NOTE | 2023-07-31 14:40 | PM.DS1 ---
DS: Providers Provider Date of admission: 07/25/23 15:44 Primary care physician: Non-Staff Physician, Admitting clinician: Shaikh Carlyle Consults: 07/26/23 Consult to Pulmonology Routine Consulting Provider: Karlos Bauer Reason for consultation: sob, copd, pneumonia Has provider been notified: Yes 07/29/23 07:37 Consult to Cardiology Routine Reason for consultation: read echo, recommendations for acute chf Has provider been notified: No 07/30/23 Physical Therapy Eval and Treat Routine Reason for consultation: weakness Attending physician on discharge: Shannon Guzmán DS: Diagnosis Discharge Diagnosis (1) Right-sided heart failure: Qualifiers: Heart failure chronicity: acute on chronic Qualified Code(s): I50.813 - Acute on chronic right heart failure (2) Unspecified asthma with (acute) exacerbation: (3) Rhinovirus infection: (4) Respiratory failure with hypoxia: (5) HTN (hypertension): (6) Diabetes: Qualifiers: Diabetes mellitus type: type 2 Diabetes mellitus mcc insulin use: without mcc use DS: Summary Hospital Course Hospital Course: (1) Unspecified asthma with (acute) exacerbation: Assessment and Plan: positive rhinovirus, but will continue to treat with azithromycin, tomorrow day 5 so will stop, for secondary bacterial cause only. pulmonary consultation and note reviewed, magnesium within normal range so no further magnesium is given. Will continue steroids but decrease today as patient developing thrush and also getting optimal improvement, continue inhalers and nebulizer treatments, oxygen therapy, BIPAP and FI02 50-60% with vapotherm. It seems right sided heart failure more so than asthma is contributing to hypoxia at this point. (2) Right-sided heart failure: Assessment and Plan: echocardiogram showed: 1. Global left ventricular systolic function is hyperdynamic; visually estimated ejection fraction is 65 to 70% 2. D-shaped septum consistent with right ventricular pressure and/or volume overload 3. The right ventricle is severely dilated with severely reduced systolic function 4. The right atrium is severely dilated 5. Moderate tricuspid regurgitation 6. Severely elevated right sided pressures; RVSP 99 mmHg 7. Trivial pericardial effusion. CTA showed some pulmonary edema, no evidence of PE, continue lasix 40mg BID, potassium level has been normal; repeat echo today, if pressures 76mmHG, transfer to Acute Care facility for right sided heart Cath, possible [place]. Can be from ANSHUL, obesity, acute illness, ASthma/copd. Given new onset, and severity needs to be worked up further. Considered addition of Revatio. Qualifiers: Heart failure chronicity: acute on chronic Qualified Code(s): I50.813 - Acute on chronic right heart failure (3) Rhinovirus infection: Assessment and Plan: symptom treatment only (4) Respiratory failure with hypoxia: Assessment and Plan: combination of #1 and #2 (5) HTN (hypertension): Assessment and Plan: continue on home medications, hold hydrochlorothiazide secondary to renal function and the use of IV Lasix (6) Diabetes: Assessment and Plan: SSI while inpatient. added levemir 20 units for night. Check A1C 7.7 . FSBS above goal partly due to steroids. Qualifiers: Diabetes mellitus mcc insulin use: without technician terminal and repeater use Diabetes mellitus type: type 2 patient will be transferred to to [facility] hospitalist admission, cardiology consulting, right sided heart cath Time Spent with Patient Time attestation: Total time spent providing and/or coordinating discharge services: Time spent: greater than 30 minutes Exam Narrative Exam Narrative: General: Patient is alert, and oriented to person, place and time with normal affect, proper hygiene Skin: no visible rashes, or ulcers Head: atraumatic, acephalic Eyes: PERRLA, no nystagmus present, conjunctiva clear, no scleral icterus Ears: normal gross auditory acuity Heart: Normal rate and rhythm, no murmurs/rubs/gallops Lungs: audible wheezes but improving, no crackles and diminished breath sounds all lung pan Abdomen: Normal audible bowel sounds, no distension, No palpable masses, no organomegaly, no rebound/guarding/ or rigidity Musculoskeletal: +1 swelling bilateral lower extremities with stasis dermatitis Neuro: CN II-X grossly intact, normal sensation upper and lower extremities Constitutional Vital Signs, click to edit/add: Last Vital Signs Temp 98.1 F 07/31/23 12:30 Pulse 92 H 07/31/23 14:00 Resp 18 07/31/23 14:00 BP 135/94 H 07/31/23 11:51 Pulse Ox 90 L 07/31/23 14:00 O2 Del Method Vapotherm 07/31/23 12:33 O2 Flow Rate 30 07/31/23 12:33 FiO2 45 07/31/23 12:33 DS: Data Data Completed and Pending Labs on day of discharge: Labs from last 24 hours 07/31/23 07/31/23 07/30/23 11:49 07:55 22:02 POC Glucose 308 H 235 H 409 H 07/30/23 16:07 POC Glucose 297 H Discharge Plan Discharge Disposition: [facility] Hospital Condition: Critical Discharge location: Transfer to [facility]
[2023-07-31 16:33] LABS: Glucometer 267 mg/dL (74-106)
--- NOTE | 2023-07-31 18:03 | PC.NURSE ---
Addendum entered by [employer] RN 07/31/23 18:31: Received call from [facility] Bed coordinator, Garry, who states that patient is accepted by Dr. Mark. Currently no beds availabe at this time. Requesting that labs and recent testing be faxed to [phone]. Requested records sent. Original Note: Received call from Dr. Richie Guzmán. States that patient is now accepted at [facility] by Dr. Byrne, but there are no beds currently. [facility] bed coordinator to call once they have a bed, with room assignment. Anticipating transfer for tomorrow. Transfer paperwork was completed and placed with patient's chart. Will continue to monitor patient while awaiting bed assignment.
[2023-07-31 21:06] LABS: Glucometer 333 mg/dL (74-106)
[2023-07-31] MEDS: INSULIN DETEMIR 300 UNIT/3 ML INSULN.PEN 20 UNIT SUBQ (21:06)
[2023-08-01] VITALS: PULSE 74
--- NOTE | 2023-08-01 00:58 | PC.NURSE ---
07/31/2023 2345 Patient waiting on transport to [facility] for transfer. [id number] [facility] arrived for patient transport. Report given. Team preparing equipment for transport with patient on BIPAP. 08/01/2023 0030 Patient tranported via Cart by [facility] for transport to [facility]. 0035 Patient report called to [facility] [phone] to Nurse Miller.
--- OUTSIDE RECORDS SUMMARY | 2023-09-04 14:38 | XMS_ITS | CCD ---
Author Name Unknown Address [address] [place] [address] Organization [facility] Care Team Providers Care Grill Prep Cook Name Role Phone BRANDIE PACHECO Referring Unavailable FAVIO SANTIAGO Primary Care Unavailable Favio Santiago Primary Care Provider [phone] CHRIS ROGER Referring Unavailable AMERICOCARLEY Referring Unavailable CHRIS ROGER Attending Unavailable JACKLYN, LISSETTE PEREZ Referring Unavailable ARAUJOVENTURA Referring Unavailable FABIDB Parekh Referring Unavailable DAVEYOLMAN Referring Unavailable ALI, MCLAUGHLIN ANA Admitting Unavailable ALI, MCLAUGHLIN ANA Consulting Unavailable CARLEY GOODRICH Attending Unavailable GILBERTKVNG Consulting Unavailable ALI, MCLAUGHLIN ANA Referring Unavailable ALI, MCLAUGHLIN ANA Referring Unavailable ALI, MCLAUGHLIN ANA Referring Unavailable ALI, MCLAUGHLIN ANA Referring Unavailable ALI, MCLAUGHLIN ANA Referring Unavailable Allergies Allergy Classification Reported Allergen(s) Allergy Type Date of Onset Reaction(s) Facility (1 source) Lisinopril; Translations: [LISINOPRIL] Drug Allergy 08-01-20 [facility] Repository (1 source) Penicillins; Translations: [PENICILLINS] Propensity to adverse reactions to drug (disorder) 08-01-20 [facility] Repository (1 source) Sulfamethoxazole / Trimethoprim; Translations: [SULFAMETHOXAZOLE-TR IMETHOPRIM] Drug Allergy 08-01-20 [facility] Repository Problems Active Problems Problem Classification Problem Date Documented Da te Episodic/Chronic Cardiac and circulatory congenital anomalies (2 sources) Congenital malformation of heart, unspecified; Translations: [Congenital malformation of heart, unspecified] Onset: 08-29-2023 Chronic Other lower respiratory disease (2 sources) Hypoxemia; Translations: [Hypoxemia] Onset: 08-28-2023 Episodic Other lower respiratory disease (2 sources) Other forms of dyspnea; Translations: [Other forms of dyspnea] Onset: 08-01-2023 Episodic Pulmonary heart disease (4 sources) Other secondary pulmonary hypertension; Translations: [Pulmonary hypertension, unspecified] Onset: 08-01-2023 Chronic Unclassified (1 source) Secundum atrial septal defect; Translations: [Secundum atrial septal defect] Onset: 08-29-2023 Past or Other Problems Problem Classification Problem Date Documented Da te Episodic/Chronic Unclassified (1 source) Secundum atrial septal defect; Translations: [Secundum atrial septal defect] Onset: 08-29-2023 Results Test Name Value Interpretation Reference Range Facil ity Prep for Procedureon 023 Prep for Procedure [id number] Shelly Lynn 1975 F Date Provider Department Center 08/30/2023 CHRIS CANNON [facility] [place] No family history on file Normal [facility] Office Visiton 08-28-2023 Follow-up visit [id number] Shelly Lynn 1975 F Date Provider Department Center 08/28/2023 CHRIS CANNON [facility] No family history on file Level of Service:98723 [place] OFFICE/OUTPATIENT ESTABLISHED HIGH MDM 40-54 MIN Normal [facility] 30on 08-09-2023 30 Store Product Demonstrator received f or patient stating she needs assistance with the medications she was discharged with. Store Product Demonstrator reached out to patient who states that her INS will only cover 1/2 pill of Sildenafil per day. Patient continues to explain that she paid OOP for her first prescription of Sildenafil, but that she needs her Assistant District Attorney to reach out to INS to discuss this and have it resolved, she reports that she plans to call Dr. Felder's office Sunday to have them assist. No other needs voiced at this time, repairer typewriter urged patient to call OTM line next week if she has any further issues with her medications. Normal [facility] 30 Problem: Pain - Adul t Goal: Verbalizes/displays adequate comfort level or baseline comfort level Outcome: Progressing Flowsheets (Taken 08/09/2023 0813) Verbalizes/displays adequate comfort level or baseline comfort level: Encourage patient to monitor pain and request assistance Administer analgesics based on type and severity of pain and evaluate response Assess pain using appropriate pain scale Implement non-pharmacological measures as appropriate and evaluate response Consider cultural and social influences on pain and pain management Notify Licensed Independent Practitioner if interventions unsuccessful or patient reports new pain Problem: Safety - Adult Goal: Free from fall injury Outcome: Progressing Flowsheets (Taken 08/09/2023 0900) Free from fall injury: Assess patient frequently for physical needs Identify cognitive and physical deficits and behaviors that affect risk of falls [place] fall precautions as indicated by assessment Educate patient/family on patient safety, including physical limitations Instruct patient to call for assistance with activity based on assessment Modify environment to reduce risk of injury Consider OT/PT consult to assist with strengthening/mobility Problem: Discharge Planning Goal: Discharge to home or other facility with appropriate resources Outcome: Progressing Flowsheets (Taken 08/09/2023829) Discharge to home or other facility with appropriate resources: Identify barriers to discharge with patient and caregiver Arrange for needed discharge resources and transportation as appropriate Identify discharge learning needs (meds, wound care, etc) Arrange for interpreters to assist at discharge as needed Refer to discharge planning if patient needs post-hospital services based on physician order or complex needs related to functional status, cognitive ability or social support system Problem: Chronic Conditions and Co-morbidities Goal: Patient's chronic conditions and co-morbidity symptoms are monitored and maintained or improved Outcome: Progressing Flowsheets (Taken 08/09/2023829) Care Plan - Patient's Chronic Conditions and Co-Morbidity Symptoms are Monitored and Maintained or Improved: Monitor and assess patient's chronic conditions and comorbid symptoms for stability, deterioration, or improvement Collaborate with multidisciplinary team to address chronic and comorbid conditions and prevent exacerbation or deterioration Update acute care plan with appropriate goals if chronic or comorbid symptoms are exacerbated and prevent overall improvement and discharge Problem: Neurosensory - Adult Goal: Achieves stable or improved neurological status Outcome: Progressing Flowsheets (Taken 08/09/2023829) Achieves stable or improved neurological status: Assess for and report changes in neurological status Initiate measures to prevent increased intracranial pressure Maintain blood pressure and fluid volume within ordered parameters to optimize cerebral perfusion and minimize risk of hemorrhage Monitor temperature, glucose, and sodium. Initiate appropriate interventions as ordered Goal: Achieves maximal functionality and self care Outcome: Progressing Flowsheets (Taken 08/09/2023829) Achieves maximal functionality and self care: Monitor swallowing and airway patency with patient fatigue and changes in neurological status Encourage and assist patient to increase activity and self care with guidance from physical therapy/occupational therapy Encourage visually impaired, hearing impaired and aphasic patients to use assistive/communication devices Problem: Respiratory - Adult Goal: Achieves optimal ventilation and oxygenation Outcome: Progressing Flowsheets (Taken 08/09/2023829) Achieves optimal ventilation and oxygenation: Assess for changes in respiratory status Assess for changes in mentation and behavior Problem: Cardiovascular - Adult Goal: Maintains optimal cardiac output and hemodynamic stability Outcome: Progressing Flowsheets (Taken 08/09/2023829) Maintains optimal cardiac output and hemodynamic stability: Monitor blood pressure and heart rate Monitor urine output and notify Licensed Independent Practitioner for values outside of normal range Assess for signs of decreased cardiac output Goal: Absence of cardiac dysrhythmias or at baseline Outcome: Progressing Flowsheets (Taken 08/09/2023829) Absence of cardiac dysrhythmias or at baseline: Monitor cardiac rate and rhythm Assess for signs of decreased cardiac output Administer antiarrhythmia medication and electrolyte replacement as ordered Problem: Skin/Tissue Integrity - Adult Goal: Skin integrity remains intact Outcome: Progressing Flowsheets (Taken 08/09/2023829) Skin integrity remains intact: Monitor for areas of redness and/or skin breakdown Change oxygen saturation probe site as needed Goal: Oral mucous memb (more content not included)... Normal [facility] BASIC METABOLIC PANELon 11-2 Anion gap [Moles/Vol] 9 mmol/L Normal 7-20 [facility] Comment on above: Performed By: #### L [id number] #### [facility] ([facility]) [address] [place] [address] Calcium [Mass/Vol] 8.7 mg/dL Normal 8.6-10.3 [facility] Comment on above: Performed By: #### L [id number] #### [facility] ([facility]) [address] [place] [address] Chloride [Moles/Vol] 100 mmol/L Normal 98-107 [facility] Comment on above: Performed By: #### L [id number] #### [facility] ([facility]) [address] [place] [address] CO2 [Moles/Vol] 30 mmol/L Normal 21-31 [facility] Comment on above: Performed By: #### L [id number] #### [facility] ([facility]) [address] [place] [address] Creatinine [Mass/Vol] 0.42 mg/dL Low 0.60-1.20 [facility] Comment on above: Performed By: #### L [id number] #### [facility] ([facility]) [address] [place] [address] GLOMERULAR FILTRATION RATE ML/MIN/1.73 SQ M.PREDICTED 121.3 mL/min/1.73m*2 Normal >60.0 [facility] Comment on above: Result Comment: The [facility]???s estimated glomerular filtration rate (eGFR) will no longer include consideration of race in its calculation. The National Kidney Foundation???s eGFR Task Force developed new recommendations for the estimation of the glomerular filtration rate in the [place] They recommend immediate implementation of the new equation refit without the race variable in all laboratories because the calculation does not include race. In addition to not including race in the calculation and reporting, it included diversity in its development, and has acceptable performance characteristics and potential consequences that do not disproportionately affect any one group of individuals. Performed By: #### L [id number] #### [facility] ([facility]) [address] [place] [address] Glucose [Mass/Vol] 146 mg/dL High 70-100 [facility] Comment on above: Performed By: #### L [id number] #### [facility] ([facility]) [address] [place] [address] Potassium [Moles/Vol] 3.7 mmol/L Normal 3.5-5.1 [facility] Comment on above: Performed By: #### L [id number] #### [facility] ([facility]) [address] [place] [address] Sodium [Moles/Vol] 135 mmol/L Low 136-145 [facility] Comment on above: Performed By: #### L [id number] #### [facility] ([facility]) [address] [place] [address] Urea nitrogen [Mass/Vol] 17 mg/dL Normal 7-25 [facility] Comment on above: Performed By: #### L [id number] #### [facility] ([facility]) [address] [place] [address] UREA NITROGEN/CREATININE (MA SS RATIO) IN SER/PLAS 40.5 Normal [facility] Comment on above: Performed By: #### L [id number] #### [facility] ([facility]) [address] [place] [address] CBCon 08-09-2023 Erythrocyte distribution wid th (RBC) [Ratio] 13.1 % Normal 11.5-15.0 [facility] Comment on above: Performed By: #### L [id number] #### [facility] ([facility]) [address] [place] [address] ERYTHROCYTE MEAN CORPUSCULAR HEMOGLOBIN CONCENTRATION (G/DL) BY AUTOMATED 32.6 g/dL Normal 32.0-35.0 [facility] Comment on above: Performed By: #### L [id number] #### [facility] ([facility]) [address] [place] [address] Hematocrit (Bld) [Volume fraction] 43.5 % Normal 36.0-48.0 [facility] Comment on above: Performed By: #### L [id number] #### [facility] ([facility]) [address] [place] [address] Hemoglobin (Bld) [Mass/Vol] 14.2 g/dL Normal 12.0-15. 0 [facility] Comment on above: Performed By: #### L [id number] #### [facility] ([facility]) [address] [place] [address] MCH (RBC) [Entitic mass] 30.3 pg Normal 27.0-33.0 [facility] Comment on above: Performed By: #### L [id number] #### [facility] ([facility]) [address] [place] [address] MCV (RBC) [Entitic vol] 92.9 fL Normal 82.0-98.0 [facility] Comment on above: Performed By: #### L [id number] #### [facility] ([facility]) [address] [place] [address] PLATELETS (10*3/UL) IN BLOOD AUTOMATED COUNT 178 10*3/uL Normal 150-400 [facility] Comment on above: Performed By: #### L [id number] #### [facility] ([facility]) [address] [place] [address] RBC (Bld) [#/Vol] 4.68 10*6/uL Normal 3.80-5.00 [facility] Comment on above: Performed By: #### L [id number] #### [facility] ([facility]) [address] [place] [address] WBC (Bld) [#/Vol] 7.40 10*3/uL Normal 4.00-10.60 [facility] Comment on above: Performed By: #### L [id number] #### [facility] ([facility]) [address] [place] [address] MAGNESIUMon 08-09-2023 Magnesium [Mass/Vol] 1.7 mg/dL Low 1.9-2.7 [facility] Comment on above: Performed By: #### L [id number] #### [facility] ([facility]) [address] [place] [address] NURSNOTEon 08-09-2023 NURSNOTE Discharge paperwork reviewed with pt; copy of paperwork given to pt. Reviewed new medications with pt. Pt expresses understanding of instructions. Pt currently waiting on family for ride home. Normal [facility] PHOSPHORUSon 08-09-2023 Magnesium [Mass/Vol] 4.3 mg/dL Normal 2.5-5.0 [facility] Comment on above: Performed By: #### L [id number] #### [facility] ([facility]) [address] [place] [address] POCT GLUCOSE METER UNSOLICIT ED RESULTSon 08-09-2023 Glucose [Mass/Vol] 151 mg/dL High 70-105 [facility] Comment on above: Order Comment: Waive d Testing in the ED is performed under the ED CLIA certificate #[id number]. Result Comment: [email or web address] Performed By: #### L [id number] #### [facility] ([facility]) [address] [place] [address] Glucose [Mass/Vol] 124 mg/dL High 70-105 [facility] Comment on above: Order Comment: Waive d Testing in the ED is performed under the ED CLIA certificate #[id number]. Result Comment: [email or web address] Performed By: #### L [id number] #### [facility] ([facility]) [address] [place] [address] 30on 08-08-2023 30 The patient is Moder ately Stable - Low risk of patient condition declining or worsening The patient's goals for the shift include comfort The clinical goals for the shift include VSS Problem: Pain - Adult Goal: Verbalizes/displays adequate comfort level or baseline comfort level Outcome: Progressing Flowsheets (Taken 08/08/2023718 by Leti Jaeger RN) Verbalizes/displays adequate comfort level or baseline comfort level: Encourage patient to monitor pain and request assistance Assess pain using appropriate pain scale Problem: Safety - Adult Goal: Free from fall injury Outcome: Progressing Flowsheets (Taken 08/08/2023718 by Leti Jaeger RN) Free from fall injury: Assess patient frequently for physical needs Consider OT/PT consult to assist with strengthening/mobility [place] fall precautions as indicated by assessment Educate patient/family on patient safety, including physical limitations Instruct patient to call for assistance with activity based on assessment Problem: Discharge Planning Goal: Discharge to home or other facility with appropriate resources Outcome: Progressing Flowsheets (Taken 08/08/2023718 by Leti Jaeger RN) Discharge to home or other facility with appropriate resources: Identify barriers to discharge with patient and caregiver Problem: Chronic Conditions and Co-morbidities Goal: Patient's chronic conditions and co-morbidity symptoms are monitored and maintained or improved Outcome: Progressing Flowsheets (Taken 08/08/2023 0719 by Leti Jaeger RN) Care Plan - Patient's Chronic Conditions and Co-Morbidity Symptoms are Monitored and Maintained or Improved: Monitor and assess patient's chronic conditions and comorbid symptoms for stability, deterioration, or improvement Normal [facility] 30 The patient is Moder ately Stable - Low risk of patient condition declining or worsening The patient's goals for the shift include comfort, rest The clinical goals for the shift include stable hemodynamics, stable vitals Over the shift, the patient did not make progress toward the following goals. Barriers to progression include cath precautions. Recommendations to address these barriers include prn meds. Problem: Pain - Adult Goal: Verbalizes/displays adequate comfort level or baseline comfort level Outcome: Progressing Problem: Safety - Adult Goal: Free from fall injury Outcome: Progressing Problem: Neurosensory - Adult Goal: Achieves maximal functionality and self care Outcome: Progressing Normal [facility] BASIC METABOLIC PANELon 11- Anion gap [Moles/Vol] 7 mmol/L Normal 7-20 [facility] Comment on above: Performed By: #### L [id number] #### [facility] ([facility]) [address] [place] [address] Calcium [Mass/Vol] 8.5 mg/dL Low 8.6-10.3 [facility] Comment on above: Performed By: #### L [id number] #### [facility] ([facility]) [address] [place] [address] Chloride [Moles/Vol] 102 mmol/L Normal 98-107 [facility] Comment on above: Performed By: #### L [id number] #### [facility] ([facility]) [address] [facility] [place] [address] CO2 [Moles/Vol] 30 mmol/L Normal 21-31 [facility] Comment on above: Performed By: #### L [id number] #### [facility] ([facility]) [address] [place] [address] Creatinine [Mass/Vol] 0.60 mg/dL Normal 0.60-1.20 [facility] Comment on above: Performed By: #### L [id number] #### [facility] ([facility]) [address] [place] [address] GLOMERULAR FILTRATION RATE ML/MIN/1.73 SQ M.PREDICTED 111.3 mL/min/1.73m*2 Normal >60.0 [facility] Comment on above: Result Comment: The [facility]???s estimated glomerular filtration rate (eGFR) will no longer include consideration of race in its calculation. The National Kidney Foundation???s eGFR Task Force developed new recommendations for the estimation of the glomerular filtration rate in the [place] They recommend immediate implementation of the new equation refit without the race variable in all laboratories because the calculation does not include race. In addition to not including race in the calculation and reporting, it included diversity in its development, and has acceptable performance characteristics and potential consequences that do not disproportionately affect any one group of individuals. Performed By: #### L [id number] #### [facility] ([facility]) [address] [place] [address] Glucose [Mass/Vol] 145 mg/dL High 70-100 [facility] Comment on above: Performed By: #### L [id number] #### [facility] ([facility]) [address] [place] [address] Potassium [Moles/Vol] 3.9 mmol/L Normal 3.5-5.1 [facility] Comment on above: Performed By: #### L [id number] #### [facility] ([facility]) [address] [place] [address] Sodium [Moles/Vol] 135 mmol/L Low 136-145 [facility] Comment on above: Performed By: #### L [id number] #### [facility] ([facility]) [address] [place] [address] Urea nitrogen [Mass/Vol] 22 mg/dL Normal 7-25 [facility] Comment on above: Performed By: #### L [id number] #### [facility] ([facility]) [address] [place] [address] UREA NITROGEN/CREATININE (MA SS RATIO) IN SER/PLAS 36.7 Normal [facility] Comment on above: Performed By: #### L [id number] #### [facility] ([facility]) [address] [place] [address] CBCon 08-08-2023 Erythrocyte distribution wid th (RBC) [Ratio] 13.0 % Normal 11.5-15.0 [facility] Comment on above: Performed By: #### L [id number] #### [facility] ([facility]) [address] [facility] [place] [address] ERYTHROCYTE MEAN CORPUSCULAR HEMOGLOBIN CONCENTRATION (G/DL) BY AUTOMATED 31.8 g/dL Low 32.0-35.0 [facility] Comment on above: Performed By: #### L [id number] #### [facility] ([facility]) [address] [place] [address] Hematocrit (Bld) [Volume fraction] 47.5 % Normal 36.0-48.0 [facility] Comment on above: Performed By: #### L [id number] #### [facility] ([facility]) [address] [facility] [place] [address] Hemoglobin (Bld) [Mass/Vol] 15.1 g/dL High 12.0-15. 0 [facility] Comment on above: Performed By: #### L [id number] #### [facility] ([facility]) [address] [place] [address] MCH (RBC) [Entitic mass] 29.7 pg Normal 27.0-33.0 [facility] Comment on above: Performed By: #### L [id number] #### [facility] ([facility]) [address] [facility] [address] MCV (RBC) [Entitic vol] 93.3 fL Normal 82.0-98.0 [facility] Comment on above: Performed By: #### L [id number] #### [facility] ([facility]) [address] [place] [address] PLATELETS (10*3/UL) IN BLOOD AUTOMATED COUNT 190 10*3/uL Normal 150-400 [facility] Comment on above: Performed By: #### L [id number] #### [facility] ([facility]) [address] [facility] [place] [address] RBC (Bld) [#/Vol] 5.09 10*6/uL High 3.80-5.00 [facility] Comment on above: Performed By: #### L [id number] #### [facility] ([facility]) [address] [place] [address] WBC (Bld) [#/Vol] 8.55 10*3/uL Normal 4.00-10.60 [facility] Comment on above: Performed By: #### L [id number] #### [facility] ([facility]) [address] [place] [address] CTA CHEST W AND/OR WO IV CON TRASTon 08-08-2023 CTA CHEST W AND/OR WO IV CONTRAST CTA CHEST HISTORY: Pulmonary AVM COMPARISON: Cardiac CT 08/02/2023, CT chest 08/02/2023 TECHNIQUE: Multidetector CT angiogram through the chest performed following the uncomplicated intravenous administration of 100 mL Omnipaque 350. 3-D maximum intensity projection reconstructions constructed under concurrent physician supervision on a independent workstation. 3-D images obtained to improve visualization of vascular detail. FINDINGS: Cardiomegaly with pronounced enlargement of the right atrium and right ventricle. There is a large ASD measuring approximately 2.4 cm. Dilated pulmonary veins. Dilated pulmonary arteries with the main pulmonary artery measuring 4.2 cm. Cholelithiasis. No pleural or pericardial effusions. Heart and thoracic aorta No enlarged thoracic lymph nodes. Visualized structures in the lower neck are unremarkable. Visualized chest wall structures are unremarkable. Mosaic attenuation of the lung parenchyma. Moderate bilateral lower lobe atelectasis. No acute osseous abnormalities or aggressive osseous lesions. 3D reformatted images confirm the source data findings. IMPRESSION: *Atrial septal defect suspected with cardiomegaly (pronounced right chamber enlargement). *Enlarged central pulmonary arteries compatible with pulmonary arterial hypertension. Pulmonary veins also dilated. *No CT evidence of pulmonary AVM. *Mosaic attenuation of the lung parenchyma and moderate bilateral lower lobe atelectasis. All CT scans at this facility use dose modulation, iterative reconstruction, and/or weight based dosing when appropriate to reduce radiation dose to as low as reasonably achievable. Electronically signed: Karlos Gallardo. Normal [facility] MAGNESIUMon 08-08-2023 Magnesium [Mass/Vol] 1.8 mg/dL Low 1.9-2.7 [facility] Comment on above: Performed By: #### L [id number] #### [facility] ([facility]) [address] [place] [address] NURSNOTEon 08-08-2023 NURSNOTE Patient Name: Daniel Lynn : 1975 Primary Care Physician: Favio Santiago MD Admission Date: 08/01/2023 RAPID RESPONSE TEAM ICU TRANSFER FOLLOW-UP NOTE SUBJECTIVE / OBJECTIVE: Follow-up for previous transfer out of the ICU notification for 08/07 at 2139 . ASSESSMENT / INTERVENTIONS: Recent Vital Signs: Vitals: 08/08/23 0755 08/08/23 0823 08/08/23 1230 08/08/23 1339 BP: 119/88 (!) 118/94 BP Location: Right arm Patient Position: Sitting Pulse: 80 83 94 85 Resp: Temp: 37 ???C (98.6 ???F) TempSrc: Temporal SpO2: 92% 94% 92% 96% Weight: Height: Latest Labs: Results from last 7 days Lab Units 08/02/23 0810 PH ART pH 7.44 PCO2 ART mmHg 60* PO2 ART mmHg 89 HCO3 ART mEq/L 40.8* O2 SAT ART % 97.8 BASE EXC ART mmol/L 13.8* SOURCE OF OXYGEN Bi-PAP Lab Results Component Value Date WBC 8.55 08/08/2023 WBC 9.05 08/07/2023 HGB 15.1 (H) 08/08/2023 HGB 15.4 (H) 08/07/2023 HCT 47.5 08/08/2023 HCT 47.3 08/07/2023 MCV 93.3 08/08/2023 MCV 92.6 08/07/2023 PLT 190 08/08/2023 PLT 194 08/07/2023 NEUTROABS 8.47 (H) 08/01/2023 Lab Results Component Value Date GLUCOSE 145 (H) 08/08/2023 GLUCOSE 210 (H) 08/07/2023 CALCIUM 8.5 (L) 08/08/2023 CALCIUM 8.5 (L) 08/07/2023 NA 135 (L) 08/08/2023 NA 134 (L) 08/07/2023 K 3.9 08/08/2023 K 3.8 08/07/2023 CO2 30 08/08/2023 CO2 31 08/07/2023 CL 102 08/08/2023 CL 98 08/07/2023 BUN 22 08/08/2023 BUN 25 08/07/2023 CREATININE 0.60 08/08/2023 CREATININE 0.59 (L) 08/07/2023 EGFR 111.3 08/08/2023 EGFR 111.8 08/07/2023 BCR 36.7 08/08/2023 BCR 42.4 08/07/2023 Lab Results Component Value Date MG 1.8 (L) 08/08/2023 MG 1.7 (L) 08/07/2023 Lab Results Component Value Date PHOS 3.4 08/08/2023 PHOS 3.5 08/07/2023 Lab Results Component Value Date ALT 10 08/01/2023 AST 8 (L) 08/01/2023 ALKPHOS 54 08/01/2023 BILITOT 0.9 08/01/2023 Lab Results Component Value Date INR 1.10 08/01/2023 Follow-up:Patient sitting up in recliner on computer. Patient States that she is feeling good and denies complaints at this time. Vital signs are stable. Pamela Babcock RN Rapid Response Team Nurse [phone] 08/08/2023 3:26 PM Normal [facility] PHOSPHORUSon 08-08-2023 Magnesium [Mass/Vol] 3.4 mg/dL Normal 2.5-5.0 [facility] Comment on above: Performed By: #### L [id number] ####[facility] ([facility])[address] [place] [address] POCT GLUCOSE METER UNSOLICIT ED RESULTSon 08-08-2023 Glucose [Mass/Vol] 331 mg/dL High 70-105 [facility] Comment on above: Order Comment: Waive d Testing in the ED is performed under the ED CLIA certificate #[id number]. Result Comment: [email or web address] Performed By: #### L [id number] #### [facility] ([facility]) [address] [place] [address] Glucose [Mass/Vol] 249 mg/dL High 70-105 [facility] Comment on above: Order Comment: Waive d Testing in the ED is performed under the ED CLIA certificate #[id number]. Result Comment: [email or web address] Performed By: #### L [id number] #### [facility] ([facility]) [address] [place] [address] Glucose [Mass/Vol] 277 mg/dL High 70-105 [facility] Comment on above: Order Comment: Waive d Testing in the ED is performed under the ED CLIA certificate #[id number]. Result Comment: [email or web address] Performed By: #### L [id number] #### [facility] ([facility]) [address] [place] [address] Glucose [Mass/Vol] 198 mg/dL High 70-105 [facility] Comment on above: Order Comment: Waive d Testing in the ED is performed under the ED CLIA certificate #[id number]. Result Comment: [email or web address] Performed By: #### L [id number] #### [facility] ([facility]) [address] [place] [address] Glucose [Mass/Vol] 111 mg/dL High 70-105 [facility] Comment on above: Order Comment: Waive d Testing in the ED is performed under the ED CLIA certificate #[id number]. Result Comment: [email or web address] Performed By: #### L [id number] #### [facility] ([facility]) [address] [place] [address] 30on 08-07-2023 30 Problem: Discharge P jassi Goal: Discharge to home or other facility with appropriate resources Outcome: Progressing Flowsheets (Taken 08/07/2023799) Discharge to home or other facility with appropriate resources: Identify barriers to discharge with patient and caregiver Arrange for needed discharge resources and transportation as appropriate Problem: Chronic Conditions and Co-morbidities Goal: Patient's chronic conditions and co-morbidity symptoms are monitored and maintained or improved Outcome: Progressing Flowsheets (Taken 08/07/2023799) Care Plan - Patient's Chronic Conditions and Co-Morbidity Symptoms are Monitored and Maintained or Improved: Monitor and assess patient's chronic conditions and comorbid symptoms for stability, deterioration, or improvement Collaborate with multidisciplinary team to address chronic and comorbid conditions and prevent exacerbation or deterioration Problem: Pain - Adult Goal: Verbalizes/displays adequate comfort level or baseline comfort level Outcome: Progressing Problem: Respiratory - Adult Goal: Achieves optimal ventilation and oxygenation Outcome: Progressing Flowsheets (Taken 08/07/2023799) Achieves optimal ventilation and oxygenation: Assess for changes in respiratory status Assess for changes in mentation and behavior Position to facilitate oxygenation and minimize respiratory effort Problem: Skin/Tissue Integrity - Adult Goal: Skin integrity remains intact Outcome: Progressing Flowsheets (Taken 08/07/2023799) Skin integrity remains intact: Monitor for areas of redness and/or skin breakdown Assess vascular access sites hourly Goal: Oral mucous membranes remain intact Outcome: Progressing Flowsheets (Taken 08/07/2023799) Oral mucous membranes remain intact: Assess oral mucosa and hygiene practices Implement preventative oral hygiene regimen Normal [facility] BASIC METABOLIC PANELon 11-2 Anion gap [Moles/Vol] 9 mmol/L Normal 7-20 [facility] Comment on above: Performed By: #### L [id number] #### [facility] ([facility]) [address] [place] [address] Calcium [Mass/Vol] 8.5 mg/dL Low 8.6-10.3 [facility] Comment on above: Performed By: #### L [id number] #### [facility] ([facility]) [address] [place] [address] Chloride [Moles/Vol] 98 mmol/L Normal 98-107 [facility] Comment on above: Performed By: #### L [id number] #### [facility] ([facility]) [address] [place] [address] CO2 [Moles/Vol] 31 mmol/L Normal 21-31 [facility] Comment on above: Performed By: #### L [id number] #### [facility] ([facility]) [address] [place] [address] Creatinine [Mass/Vol] 0.59 mg/dL Low 0.60-1.20 [facility] Comment on above: Performed By: #### L [id number] #### [facility] ([facility]) [address] [place] [address] GLOMERULAR FILTRATION RATE ML/MIN/1.73 SQ M.PREDICTED 111.8 mL/min/1.73m*2 Normal >60.0 [facility] Comment on above: Result Comment: The [facility]???s estimated glomerular filtration rate (eGFR) will no longer include consideration of race in its calculation. The National Kidney Foundation???s eGFR Task Force developed new recommendations for the estimation of the glomerular filtration rate in the [place] They recommend immediate implementation of the new equation refit without the race variable in all laboratories because the calculation does not include race. In addition to not including race in the calculation and reporting, it included diversity in its development, and has acceptable performance characteristics and potential consequences that do not disproportionately affect any one group of individuals. Performed By: #### L [id number] #### [facility] ([facility]) [address] [place] [address] Glucose [Mass/Vol] 210 mg/dL High 70-100 [facility] Comment on above: Performed By: #### L [id number] #### [facility] ([facility]) [address] [place] [address] Potassium [Moles/Vol] 3.8 mmol/L Normal 3.5-5.1 [facility] Comment on above: Performed By: #### L [id number] #### [facility] ([facility]) [address] [place] [address] Sodium [Moles/Vol] 134 mmol/L Low 136-145 [facility] Comment on above: Performed By: #### L [id number] #### [facility] ([facility]) [address] [address] Urea nitrogen [Mass/Vol] 25 mg/dL Normal 7-25 [facility] Comment on above: Performed By: #### L [id number] #### [facility] ([facility]) [address] [place] [address] UREA NITROGEN/CREATININE (MA SS RATIO) IN SER/PLAS 42.4 Normal [facility] Comment on above: Performed By: #### L [id number] #### [facility] ([facility]) [address] [place] [address] CBCon 08-07-2023 Erythrocyte distribution wid th (RBC) [Ratio] 13.0 % Normal 11.5-15.0 [facility] Comment on above: Performed By: #### L [id number] #### [facility] ([facility]) [address] [place] [address] ERYTHROCYTE MEAN CORPUSCULAR HEMOGLOBIN CONCENTRATION (G/DL) BY AUTOMATED 32.6 g/dL Normal 32.0-35.0 [facility] Comment on above: Performed By: #### L [id number] #### [facility] ([facility]) [address] [place] [address] Hematocrit (Bld) [Volume fraction] 47.3 % Normal 36.0-48.0 [facility] Comment on above: Performed By: #### L [id number] #### [facility] ([facility]) [address] [place] [address] Hemoglobin (Bld) [Mass/Vol] 15.4 g/dL High 12.0-15. 0 [facility] Comment on above: Performed By: #### L [id number] #### [facility] ([facility]) [address] [place] [address] MCH (RBC) [Entitic mass] 30.1 pg Normal 27.0-33.0 [facility] Comment on above: Performed By: #### L [id number] #### [facility] ([facility]) [address] [place] [address] MCV (RBC) [Entitic vol] 92.6 fL Normal 82.0-98.0 [facility] Comment on above: Performed By: #### L [id number] #### [facility] ([facility]) [address] [place] [address] PLATELETS (10*3/UL) IN BLOOD AUTOMATED COUNT 194 10*3/uL Normal 150-400 [facility] Comment on above: Performed By: #### L [id number] #### [facility] ([facility]) [address] [place] [address] RBC (Bld) [#/Vol] 5.11 10*6/uL High 3.80-5.00 [facility] Comment on above: Performed By: #### L [id number] #### [facility] ([facility]) [address] [place] [address] WBC (Bld) [#/Vol] 9.05 10*3/uL Normal 4.00-10.60 [facility] Comment on above: Performed By: #### L [id number] #### [facility] ([facility]) [address] [place] [address] MAGNESIUMon 08-07-2023 Magnesium [Mass/Vol] 1.7 mg/dL Low 1.9-2.7 [facility] Comment on above: Performed By: #### L [id number] #### [facility] ([facility]) [address] [place] [address] NURSNOTEon 08-07-2023 NURSNOTE Report given to NEDRA dhillon in CVU. All questions answered at this time- patient belongings given from repairer typewriter to NEDRA. Normal [facility] PHOSPHORUSon 08-07-2023 Magnesium [Mass/Vol] 3.5 mg/dL Normal 2.5-5.0 [facility] Comment on above: Performed By: #### L [id number] #### [facility] ([facility]) [address] [place] [address] POCT GLUCOSE METER UNSOLICIT ED RESULTSon 08-07-2023 Glucose [Mass/Vol] 233 mg/dL High 70-105 [facility] Comment on above: Order Comment: Waive d Testing in the ED is performed under the ED CLIA certificate #[id number]. Result Comment: [email or web address] Performed By: #### L [id number] #### [facility] ([facility]) [address] [place] [address] Glucose [Mass/Vol] 156 mg/dL High 70-105 [facility] Comment on above: Order Comment: Waive d Testing in the ED is performed under the ED CLIA certificate #[id number]. Result Comment: [email or web address] Performed By: #### L [id number] #### [facility] ([facility]) [address] [place] [address] Glucose [Mass/Vol] 305 mg/dL High 70-105 [facility] Comment on above: Order Comment: Waive d Testing in the ED is performed under the ED CLIA certificate #[id number]. Result Comment: [email or web address] Performed By: #### L [id number] #### [facility] ([facility]) [address] [place] [address] 30on 08-06-2023 30 Problem: Pain - Adul t Goal: Verbalizes/displays adequate comfort level or baseline comfort level Outcome: Progressing Problem: Safety - Adult Goal: Free from fall injury Outcome: Progressing Flowsheets (Taken 08/06/2023 0800) Free from fall injury: Assess patient frequently for physical needs Identify cognitive and physical deficits and behaviors that affect risk of falls Modify environment to reduce risk of injury Consider OT/PT consult to assist with strengthening/mobility Problem: Discharge Planning Goal: Discharge to home or other facility with appropriate resources Outcome: Progressing Problem: Chronic Conditions and Co-morbidities Goal: Patient's chronic conditions and co-morbidity symptoms are monitored and maintained or improved Outcome: Progressing Flowsheets (Taken 08/06/2023 0800) Care Plan - Patient's Chronic Conditions and Co-Morbidity Symptoms are Monitored and Maintained or Improved: Monitor and assess patient's chronic conditions and comorbid symptoms for stability, deterioration, or improvement Problem: Cardiovascular - Adult Goal: Maintains optimal cardiac output and hemodynamic stability Outcome: Progressing Goal: Absence of cardiac dysrhythmias or at baseline Outcome: Progressing Normal [facility] BASIC METABOLIC PANELon 11-2 Anion gap [Moles/Vol] 9 mmol/L Normal 7-20 [facility] Comment on above: Performed By: #### L [id number] #### [facility] ([facility]) [address] [place] [address] Calcium [Mass/Vol] 8.4 mg/dL Low 8.6-10.3 [facility] Comment on above: Performed By: #### L [id number] #### [facility] ([facility]) [address] [place] [address] Chloride [Moles/Vol] 100 mmol/L Normal 98-107 [facility] Comment on above: Performed By: #### L [id number] #### [facility] ([facility]) [address] [place] [address] CO2 [Moles/Vol] 30 mmol/L Normal 21-31 [facility] Comment on above: Performed By: #### L [id number] #### [facility] ([facility]) [address] [place] [address] Creatinine [Mass/Vol] 0.61 mg/dL Normal 0.60-1.20 [facility] Comment on above: Performed By: #### L [id number] #### [facility] ([facility]) [address] [place] [address] GLOMERULAR FILTRATION RATE ML/MIN/1.73 SQ M.PREDICTED 110.9 mL/min/1.73m*2 Normal >60.0 [facility] Comment on above: Result Comment: The [facility]???s estimated glomerular filtration rate (eGFR) will no longer include consideration of race in its calculation. The National Kidney Foundation???s eGFR Task Force developed new recommendations for the estimation of the glomerular filtration rate in the [place] They recommend immediate implementation of the new equation refit without the race variable in all laboratories because the calculation does not include race. In addition to not including race in the calculation and reporting, it included diversity in its development, and has acceptable performance characteristics and potential consequences that do not disproportionately affect any one group of individuals. Performed By: #### L [id number] #### [facility] ([facility]) [address] [place] [address] Glucose [Mass/Vol] 180 mg/dL High 70-100 [facility] Comment on above: Performed By: #### L [id number] #### [facility] ([facility]) [address] [place] [address] Potassium [Moles/Vol] 4.1 mmol/L Normal 3.5-5.1 [facility] Comment on above: Performed By: #### L [id number] #### [facility] ([facility]) [address] [place] [address] Sodium [Moles/Vol] 135 mmol/L Low 136-145 [facility] Comment on above: Performed By: #### L [id number] #### [facility] ([facility]) [address] [place] [address] Urea nitrogen [Mass/Vol] 20 mg/dL Normal 7-25 [facility] Comment on above: Performed By: #### L [id number] #### [facility] ([facility]) [address] [place] [address] UREA NITROGEN/CREATININE (MA SS RATIO) IN SER/PLAS 32.8 Normal [facility] Comment on above: Performed By: #### L [id number] #### [facility] ([facility]) [address] [place] [address] CBCon 11-20-2023 Erythrocyte distribution wid th (RBC) [Ratio] 12.9 % Normal 11.5-15.0 [facility] Comment on above: Performed By: #### L [id number] #### [facility] ([facility]) [address] [place] [address] ERYTHROCYTE MEAN CORPUSCULAR HEMOGLOBIN CONCENTRATION (G/DL) BY AUTOMATED 32.4 g/dL Normal 32.0-35.0 [facility] Comment on above: Performed By: #### L [id number] #### [facility] ([facility]) [address] [place] [address] Hematocrit (Bld) [Volume fraction] 48.5 % High 36.0-48.0 [facility] Comment on above: Performed By: #### L [id number] #### [facility] ([facility]) [address] [place] [address] Hemoglobin (Bld) [Mass/Vol] 15.7 g/dL High 12.0-15. 0 [facility] Comment on above: Performed By: #### L [id number] #### [facility] ([facility]) [address] [address] MCH (RBC) [Entitic mass] 30.3 pg Normal 27.0-33.0 [facility] Comment on above: Performed By: #### L [id number] #### [facility] ([facility]) [address] [facility] [address] [place] [address] MCV (RBC) [Entitic vol] 93.4 fL Normal 82.0-98.0 [facility] Comment on above: Performed By: #### L [id number] #### [facility] ([facility]) [address] [address] [place] [address] PLATELETS (10*3/UL) IN BLOOD AUTOMATED COUNT 159 10*3/uL Normal 150-400 [facility] Comment on above: Performed By: #### L [id number] #### [facility] ([facility]) [address] [place] [address] RBC (Bld) [#/Vol] 5.19 10*6/uL High 3.80-5.00 [facility] Comment on above: Performed By: #### L [id number] #### [facility] ([facility]) [address] [place] [address] WBC (Bld) [#/Vol] 8.36 10*3/uL Normal 4.00-10.60 [facility] Comment on above: Performed By: #### L [id number] #### [facility] ([facility]) [address] [place] [address] MAGNESIUMon 08-06-2023 Magnesium [Mass/Vol] 1.8 mg/dL Low 1.9-2.7 [facility] Comment on above: Performed By: #### L [id number] #### [facility] ([facility]) [address] [place] [address] MRI CARDIAC MORPHOLOGY AND F UNCTION W AND WO IV CONTRASTon 08-06-2023 MRI CARDIAC MORPHOLOGY AND FUNCTION W AND WO IV CONTRAST MRI CARDIAC MORPHOLOGY AND FUNCTION W AND WO IV CONTRAST 08/07/2023 8:39 AM SIGNS AND SYMPTOMS: TECHNOLOGIST COMMENTS: QUESTION FOR THE RADIOLOGIST: PROTOCOL: Multiplanar T1 and T2-weighted MR imaging conducted. This includes bright blood steady-state free precession images. Black blood images and delayed myocardial enhancement images. T1 and T2 mapping conducted. gadoterate meglumine 0.5 mmol/mL contrast injection 40 mL COMPARISON: No prior FINDINGS: Morphology: Left ventricular end-diastolic diameter:37.5 Anteroseptal wall thickness:8 mm Inferoseptal wall thickness:7 mm Mid septal wall thickness:8.5 mm.Ventricular septum bulges left. Consistent with elevated right heart pressure. Right ventricular free wall: Measures over 10 mm in diameter Right ventricular size:Enlarged Left ventricular size:Normal Right atrial size:Enlarged Left atrial size:Normal Function: Left ventricular functional analysis does not appear to have been added and an addendum when data is located Left ventricular ejection fraction: Left ventricular end-diastolic volume: Left ventricular end-systolic volume: Stroke volume: Wall motion: Valves: Quantitative analysis: Not performed Mitral valve: No visible regurgitation or stenosis Tricuspid valve: No visible regurgitation or stenosis Aortic valve: No visible regurgitation or stenosis Delayed myocardial enhancement: Delayed myocardial enhancement is identified at the ventricular insertion points. Likely some nonspecific fibrosis secondary to cardiomegaly caused by right ventricular hypertrophy T1 mapping: T2 mapping: Other cardiac findings: Pericardium:No effusion Aorta:No aortic aneurysm Pulmonary artery: Dilated main pulmonary artery measuring up to 4.3 cm. In conjunction with an large right ventricle and thickening of the anterior wall of the right ventricle findings are suspicious for pulmonary arterial hypertension Noncardiac findings: IMPRESSION: *Dilated main pulmonary artery measuring up to 4.3 cm. In conjunction with an large right ventricle and thickening of the anterior wall of the right ventricle findings are suspicious for pulmonary arterial hypertension. Ventricular septum bulges left. Consistent with elevated right heart pressure *Thickening of the right ventricular free wall measures greater than 10 mm maximum thickness *Delayed myocardial enhancement is identified at the ventricular insertion points. Likely some nonspecific fibrosis secondary to cardiomegaly caused by right ventricular hypertrophy . . Electronically signed: Cade Farley. Normal [facility] PHOSPHORUSon 08-06-2023 Magnesium [Mass/Vol] 3.2 mg/dL Normal 2.5-5.0 [facility] Comment on above: Performed By: #### L [id number] #### [facility] (vzaar) [address] [place] [address] POCT GLUCOSE METER UNSOLICIT ED RESULTSon 08-06-2023 Glucose [Mass/Vol] 240 mg/dL High 70-105 [facility] Comment on above: Order Comment: Waive d Testing in the ED is performed under the ED CLIA certificate #[id number]. Result Comment: [email or web address] Performed By: #### L [id number] ####[facility] (BEvzaar)[address] [place] [address] Glucose [Mass/Vol] 240 mg/dL High 70-105 [facility] Comment on above: Order Comment: Waive d Testing in the ED is performed under the ED CLIA certificate #[id number]. Result Comment: [email or web address] Performed By: #### L [id number] #### [facility] (AirPR) [address] [place] [address] Glucose [Mass/Vol] 252 mg/dL High 70-105 [facility] Comment on above: Order Comment: Waive d Testing in the ED is performed under the ED CLIA certificate #[id number]. Result Comment: [email or web address] Performed By: #### L [id number] #### [facility] (BEAKER) [address] [place] [address] 30on 08-05-2023 30 The patient is Moder ately Unstable - Medium risk of patient condition declining or worsening The patient's goals for the shift include comfort The clinical goals for the shift include VSS, wean o2 Problem: Pain - Adult Goal: Verbalizes/displays adequate comfort level or baseline comfort level Outcome: Progressing Problem: Safety - Adult Goal: Free from fall injury Outcome: Progressing Problem: Discharge Planning Goal: Discharge to home or other facility with appropriate resources Outcome: Progressing Problem: Chronic Conditions and Co-morbidities Goal: Patient's chronic conditions and co-morbidity symptoms are monitored and maintained or improved Outcome: Progressing Problem: Neurosensory - Adult Goal: Achieves stable or improved neurological status Outcome: Progressing Goal: Achieves maximal functionality and self care Outcome: Progressing Problem: Respiratory - Adult Goal: Achieves optimal ventilation and oxygenation Outcome: Progressing Problem: Cardiovascular - Adult Goal: Maintains optimal cardiac output and hemodynamic stability Outcome: Progressing Goal: Absence of cardiac dysrhythmias or at baseline Outcome: Progressing Problem: Skin/Tissue Integrity - Adult Goal: Skin integrity remains intact Outcome: Progressing Goal: Oral mucous membranes remain intact Outcome: Progressing Problem: Musculoskeletal - Adult Goal: Return mobility to safest level of function Outcome: Progressing Goal: Maintain proper alignment of affected body part Outcome: Progressing Goal: Return ADL status to a safe level of function Outcome: Progressing Problem: Gastrointestinal - Adult Goal: Minimal or absence of nausea and vomiting Outcome: Progressing Goal: Maintains or returns to baseline bowel function Outcome: Progressing Goal: Maintains adequate nutritional intake Outcome: Progressing Problem: Genitourinary - Adult Goal: Absence of urinary retention Outcome: Progressing Problem: Infection - Adult Goal: Absence of infection at discharge Outcome: Progressing Goal: Absence of infection during hospitalization Outcome: Progressing Goal: Absence of fever/infection during anticipated neutropenic period Outcome: Progressing Problem: Metabolic/Fluid and Electrolytes - Adult Goal: Electrolytes maintained within normal limits Outcome: Progressing Goal: Hemodynamic stability and optimal renal function maintained Outcome: Progressing Goal: Glucose maintained within prescribed range Outcome: Progressing Problem: Hematologic - Adult Goal: Maintains hematologic stability Outcome: Progressing Normal [facility] 30 Problem: Pain - Adul t Goal: Verbalizes/displays adequate comfort level or baseline comfort level Outcome: Progressing Problem: Safety - Adult Goal: Free from fall injury Outcome: Progressing Problem: Discharge Planning Goal: Discharge to home or other facility with appropriate resources Outcome: Progressing Problem: Chronic Conditions and Co-morbidities Goal: Patient's chronic conditions and co-morbidity symptoms are monitored and maintained or improved Outcome: Progressing Problem: Neurosensory - Adult Goal: Achieves stable or improved neurological status Outcome: Progressing Goal: Achieves maximal functionality and self care Outcome: Progressing Problem: Respiratory - Adult Goal: Achieves optimal ventilation and oxygenation Outcome: Progressing Problem: Cardiovascular - Adult Goal: Maintains optimal cardiac output and hemodynamic stability Outcome: Progressing Goal: Absence of cardiac dysrhythmias or at baseline Outcome: Progressing Problem: Skin/Tissue Integrity - Adult Goal: Skin integrity remains intact Outcome: Progressing Goal: Oral mucous membranes remain intact Outcome: Progressing Problem: Musculoskeletal - Adult Goal: Return mobility to safest level of function Outcome: Progressing Goal: Maintain proper alignment of affected body part Outcome: Progressing Goal: Return ADL status to a safe level of function Outcome: Progressing Problem: Gastrointestinal - Adult Goal: Minimal or absence of nausea and vomiting Outcome: Progressing Goal: Maintains or returns to baseline bowel function Outcome: Progressing Goal: Maintains adequate nutritional intake Outcome: Progressing Problem: Genitourinary - Adult Goal: Absence of urinary retention Outcome: Progressing Problem: Infection - Adult Goal: Absence of infection at discharge Outcome: Progressing Goal: Absence of infection during hospitalization Outcome: Progressing Goal: Absence of fever/infection during anticipated neutropenic period Outcome: Progressing Problem: Metabolic/Fluid and Electrolytes - Adult Goal: Electrolytes maintained within normal limits Outcome: Progressing Goal: Hemodynamic stability and optimal renal function maintained Outcome: Progressing Goal: Glucose maintained within prescribed range Outcome: Progressing Problem: Hematologic - Adult Goal: Maintains hematologic stability Outcome: Progressing The patient is Moderately Stable - Low risk of patient condition declining or worsening The patient's goals for the shift include comfort The clinical goals for the shift include VSS Normal [facility] BASIC METABOLIC PANELon 11-1 Anion gap [Moles/Vol] 7 mmol/L Normal 7-20 [facility] Comment on above: Performed By: #### L [id number] ####[facility] ([facility])[address] [place] [address] Calcium [Mass/Vol] 8.4 mg/dL Low 8.6-10.3 [facility] Comment on above: Performed By: #### L [id number] ####[facility] ([facility])[address] [place] [address] Chloride [Moles/Vol] 99 mmol/L Normal 98-107 [facility] Comment on above: Performed By: #### L [id number] ####[facility] ([facility])[address] [place] [address] CO2 [Moles/Vol] 33 mmol/L High 21-31 [facility] Comment on above: Performed By: #### L [id number] ####[facility] ([facility])[address] [place] [address] Creatinine [Mass/Vol] 0.75 mg/dL Normal 0.60-1.20 [facility] Comment on above: Performed By: #### L [id number] ####[facility] ([facility])[address] [place] [address] GLOMERULAR FILTRATION RATE ML/MIN/1.73 SQ M.PREDICTED 98.8 mL/min/1.73m*2 Normal >60.0 [facility] Comment on above: Result Comment: The [facility]???s estimated glomerular filtration rate (eGFR) will no longer include consideration of race in its calculation. The National Kidney Foundation???s eGFR Task Force developed new recommendations for the estimation of the glomerular filtration rate in the [place] They recommend immediate implementation of the new equation refit without the race variable in all laboratories because the calculation does not include race. In addition to not including race in the calculation and reporting, it included diversity in its development, and has acceptable performance characteristics and potential consequences that do not disproportionately affect any one group of individuals. Performed By: #### L [id number] ####[facility] ([facility])[address] [place] [address] Glucose [Mass/Vol] 206 mg/dL High 70-100 [facility] Comment on above: Performed By: #### L [id number] ####[facility] ([facility])[address] [place] [address] Potassium [Moles/Vol] 3.7 mmol/L Normal 3.5-5.1 [facility] Comment on above: Performed By: #### L [id number] ####[facility] ([facility])[address] [place] [address] Sodium [Moles/Vol] 135 mmol/L Low 136-145 [facility] Comment on above: Performed By: #### L [id number] ####[facility] ([facility])[address] [place] [address] Urea nitrogen [Mass/Vol] 26 mg/dL High 7-25 [facility] Comment on above: Performed By: #### L [id number] ####[facility] ([facility])[address] [place] [address] UREA NITROGEN/CREATININE (MA SS RATIO) IN SER/PLAS 34.7 Normal [facility] Comment on above: Performed By: #### L [id number] ####[facility] ([facility])[address] [place] [address] CBCon 08-05-2023 Erythrocyte distribution wid th (RBC) [Ratio] 13.0 % Normal 11.5-15.0 [facility] Comment on above: Performed By: #### L [id number] ####[facility] ([facility])[address] [place] [address] ERYTHROCYTE MEAN CORPUSCULAR HEMOGLOBIN CONCENTRATION (G/DL) BY AUTOMATED 32.7 g/dL Normal 32.0-35.0 [facility] Comment on above: Performed By: #### L [id number] ####[facility] ([facility])[address] [place] [address] Hematocrit (Bld) [Volume fraction] 49.5 % High 36.0-48.0 [facility] Comment on above: Performed By: #### L [id number] ####[facility] ([facility])[address] [place] [address] Hemoglobin (Bld) [Mass/Vol] 16.2 g/dL High 12.0-15. 0 [facility] Comment on above: Performed By: #### L [id number] ####[facility] ([facility])[address] [place] [address] MCH (RBC) [Entitic mass] 30.6 pg Normal 27.0-33.0 [facility] Comment on above: Performed By: #### L [id number] ####[facility] ([facility])[address] [place] [address] MCV (RBC) [Entitic vol] 93.4 fL Normal 82.0-98.0 [facility] Comment on above: Performed By: #### L [id number] ####[facility] ([facility])[address] [place] [address] PLATELETS (10*3/UL) IN BLOOD AUTOMATED COUNT 190 10*3/uL Normal 150-400 [facility] Comment on above: Performed By: #### L [id number] ####[facility] ([facility])[address] [place] [address] RBC (Bld) [#/Vol] 5.30 10*6/uL High 3.80-5.00 [facility] Comment on above: Performed By: #### L [id number] ####[facility] ([facility])[address] [place] [address] WBC (Bld) [#/Vol] 9.57 10*3/uL Normal 4.00-10.60 [facility] Comment on above: Performed By: #### L [id number] ####[facility] ([facility])[address] [place] [address] MAGNESIUMon 08-05-2023 Magnesium [Mass/Vol] 1.9 mg/dL Normal 1.9-2.7 [facility] Comment on above: Performed By: #### L [id number] #### [facility] ([facility]) [address] [place] [address] PHOSPHORUSon 08-05-2023 Magnesium [Mass/Vol] 3.1 mg/dL Normal 2.5-5.0 [facility] Comment on above: Performed By: #### L [id number] ####[facility] ([facility])[address] [place] [address] POCT GLUCOSE METER UNSOLICIT ED RESULTSon 08-05-2023 Glucose [Mass/Vol] 272 mg/dL High 70-105 [facility] Comment on above: Order Comment: Waive d Testing in the ED is performed under the ED CLIA certificate #[id number]. Result Comment: nfre cassie Performed By: #### L [id number] #### [facility] ([facility]) [address] [place] [address] Glucose [Mass/Vol] 203 mg/dL High 70-105 [facility] Comment on above: Order Comment: Waive d Testing in the ED is performed under the ED CLIA certificate #[id number]. Result Comment: ana ry Performed By: #### L [id number] ####[facility] ([facility])[address] [place] [address] Glucose [Mass/Vol] 227 mg/dL High 70-105 [facility] Comment on above: Order Comment: Waive d Testing in the ED is performed under the ED CLIA certificate #[id number]. Result Comment: ana ry Performed By: #### L [id number] #### [facility] ([facility]) [address] [place] [address] Glucose [Mass/Vol] 200 mg/dL High 70-105 [facility] Comment on above: Order Comment: Waive d Testing in the ED is performed under the ED CLIA certificate #[id number]. Result Comment: ana ry Performed By: #### L [id number] #### [facility] ([facility]) [address] [place] [address] 30on 11-18-2023 30 The patient is Moder ately Unstable - Medium risk of patient condition declining or worsening The patient's goals for the shift include comfort The clinical goals for the shift include VSS Problem: Pain - Adult Goal: Verbalizes/displays adequate comfort level or baseline comfort level Outcome: Progressing Problem: Safety - Adult Goal: Free from fall injury Outcome: Progressing Problem: Discharge Planning Goal: Discharge to home or other facility with appropriate resources Outcome: Progressing Problem: Chronic Conditions and Co-morbidities Goal: Patient's chronic conditions and co-morbidity symptoms are monitored and maintained or improved Outcome: Progressing Problem: Neurosensory - Adult Goal: Achieves stable or improved neurological status Outcome: Progressing Goal: Achieves maximal functionality and self care Outcome: Progressing Problem: Respiratory - Adult Goal: Achieves optimal ventilation and oxygenation Outcome: Progressing Problem: Cardiovascular - Adult Goal: Maintains optimal cardiac output and hemodynamic stability Outcome: Progressing Goal: Absence of cardiac dysrhythmias or at baseline Outcome: Progressing Problem: Skin/Tissue Integrity - Adult Goal: Skin integrity remains intact Outcome: Progressing Goal: Oral mucous membranes remain intact Outcome: Progressing Problem: Musculoskeletal - Adult Goal: Return mobility to safest level of function Outcome: Progressing Goal: Maintain proper alignment of affected body part Outcome: Progressing Goal: Return ADL status to a safe level of function Outcome: Progressing Problem: Gastrointestinal - Adult Goal: Minimal or absence of nausea and vomiting Outcome: Progressing Goal: Maintains or returns to baseline bowel function Outcome: Progressing Goal: Maintains adequate nutritional intake Outcome: Progressing Problem: Genitourinary - Adult Goal: Absence of urinary retention Outcome: Progressing Problem: Infection - Adult Goal: Absence of infection at discharge Outcome: Progressing Goal: Absence of infection during hospitalization Outcome: Progressing Goal: Absence of fever/infection during anticipated neutropenic period Outcome: Progressing Problem: Metabolic/Fluid and Electrolytes - Adult Goal: Electrolytes maintained within normal limits Outcome: Progressing Goal: Hemodynamic stability and optimal renal function maintained Outcome: Progressing Goal: Glucose maintained within prescribed range Outcome: Progressing Problem: Hematologic - Adult Goal: Maintains hematologic stability Outcome: Progressing Normal [facility] 30 The patient is Moder ately Stable - Low risk of patient condition declining or worsening The patient's goals for the shift include comfort The clinical goals for the shift include vss Problem: Pain - Adult Goal: Verbalizes/displays adequate comfort level or baseline comfort level Outcome: Progressing Problem: Safety - Adult Goal: Free from fall injury Outcome: Progressing Problem: Discharge Planning Goal: Discharge to home or other facility with appropriate resources Outcome: Progressing Problem: Chronic Conditions and Co-morbidities Goal: Patient's chronic conditions and co-morbidity symptoms are monitored and maintained or improved Outcome: Progressing Problem: Neurosensory - Adult Goal: Achieves stable or improved neurological status Outcome: Progressing Goal: Achieves maximal functionality and self care Outcome: Progressing Problem: Respiratory - Adult Goal: Achieves optimal ventilation and oxygenation Outcome: Progressing Problem: Cardiovascular - Adult Goal: Maintains optimal cardiac output and hemodynamic stability Outcome: Progressing Goal: Absence of cardiac dysrhythmias or at baseline Outcome: Progressing Problem: Skin/Tissue Integrity - Adult Goal: Skin integrity remains intact Outcome: Progressing Goal: Oral mucous membranes remain intact Outcome: Progressing Problem: Musculoskeletal - Adult Goal: Return mobility to safest level of function Outcome: Progressing Goal: Maintain proper alignment of affected body part Outcome: Progressing Goal: Return ADL status to a safe level of function Outcome: Progressing Problem: Gastrointestinal - Adult Goal: Minimal or absence of nausea and vomiting Outcome: Progressing Goal: Maintains or returns to baseline bowel function Outcome: Progressing Goal: Maintains adequate nutritional intake Outcome: Progressing Problem: Genitourinary - Adult Goal: Absence of urinary retention Outcome: Progressing Problem: Infection - Adult Goal: Absence of infection at discharge Outcome: Progressing Goal: Absence of infection during hospitalization Outcome: Progressing Goal: Absence of fever/infection during anticipated neutropenic period Outcome: Progressing Problem: Metabolic/Fluid and Electrolytes - Adult Goal: Electrolytes maintained within normal limits Outcome: Progressing Goal: Hemodynamic stability and optimal renal function maintained Outcome: Progressing Goal: Glucose maintained within prescribed range Outcome: Progressing Problem: Hematologic - Adult Goal: Maintains hematologic stability Outcome: Progressing Normal [facility] BASIC METABOLIC PANELon 11-1 Anion gap [Moles/Vol] 7 mmol/L Normal 7-20 [facility] Comment on above: Performed By: #### L [id number] ####[facility] (BEAKER)[address] [place] [address] Calcium [Mass/Vol] 8.4 mg/dL Low 8.6-10.3 [facility] Comment on above: Performed By: #### L [id number] ####[facility] ([facility]AKER)[address] [place] [address] Chloride [Moles/Vol] 99 mmol/L Normal 98-107 [facility] Comment on above: Performed By: #### L [id number] ####[facility] ([facility])[address] [place] [address] CO2 [Moles/Vol] 33 mmol/L High 21-31 [facility] Comment on above: Performed By: #### L [id number] ####[facility] ([facility])[address] [place] [address] Creatinine [Mass/Vol] 0.82 mg/dL Normal 0.60-1.20 [facility] Comment on above: Performed By: #### L [id number] ####[facility] ([facility])[address] [place] [address] GLOMERULAR FILTRATION RATE ML/MIN/1.73 SQ M.PREDICTED 88.7 mL/min/1.73m*2 Normal >60.0 [facility] Comment on above: Result Comment: The [facility]???s estimated glomerular filtration rate (eGFR) will no longer include consideration of race in its calculation. The National Kidney Foundation???s eGFR Task Force developed new recommendations for the estimation of the glomerular filtration rate in the [place] They recommend immediate implementation of the new equation refit without the race variable in all laboratories because the calculation does not include race. In addition to not including race in the calculation and reporting, it included diversity in its development, and has acceptable performance characteristics and potential consequences that do not disproportionately affect any one group of individuals. Performed By: #### L [id number] ####[facility] ([facility])[address] [place] [address] Glucose [Mass/Vol] 207 mg/dL High 70-100 [facility] Comment on above: Performed By: #### L [id number] ####[facility] ([facility])[address] [place] [address] Potassium [Moles/Vol] 3.8 mmol/L Normal 3.5-5.1 [facility] Comment on above: Performed By: #### L [id number] ####[facility] [facility])[address] [place] [address] Sodium [Moles/Vol] 135 mmol/L Low 136-145 [facility] Comment on above: Performed By: #### L [id number] ####[facility] ([facility])[address] [place] [address] Urea nitrogen [Mass/Vol] 28 mg/dL High 7-25 [facility] Comment on above: Performed By: #### L [id number] ####[facility] ([facility])[address] [place] [address] UREA NITROGEN/CREATININE (MA SS RATIO) IN SER/PLAS 34.1 Normal [facility] Comment on above: Performed By: #### L [id number] ####[facility] ([facility])[address] [place] [address] CBCon 08-04-2023 Erythrocyte distribution wid th (RBC) [Ratio] 13.0 % Normal 11.5-15.0 [facility] Comment on above: Performed By: #### L [id number] #### [facility] ([facility]) [address] [place] [address] ERYTHROCYTE MEAN CORPUSCULAR HEMOGLOBIN CONCENTRATION (G/DL) BY AUTOMATED 32.5 g/dL Normal 32.0-35.0 [facility] Comment on above: Performed By: #### L [id number] #### [facility] ([facility]) [address] [place] [address] Hematocrit (Bld) [Volume fraction] 49.9 % High 36.0-48.0 [facility] Comment on above: Performed By: #### L [id number] #### [facility] ([facility]) [address] [place] [address] Hemoglobin (Bld) [Mass/Vol] 16.2 g/dL High 12.0-15. 0 [facility] Comment on above: Performed By: #### L [id number] #### [facility] ([facility]) [address] [place] [address] MCH (RBC) [Entitic mass] 30.5 pg Normal 27.0-33.0 [facility] Comment on above: Performed By: #### L [id number] #### [facility] ([facility]) [address] [place] [address] MCV (RBC) [Entitic vol] 93.8 fL Normal 82.0-98.0 [facility] Comment on above: Performed By: #### L [id number] #### [facility] ([facility]) [address] [place] [address] PLATELETS (10*3/UL) IN BLOOD AUTOMATED COUNT 197 10*3/uL Normal 150-400 [facility] Comment on above: Performed By: #### L [id number] #### [facility] ([facility]) [address] [place] [address] RBC (Bld) [#/Vol] 5.32 10*6/uL High 3.80-5.00 [facility] Comment on above: Performed By: #### L [id number] #### [facility] ([facility]) [address] [place] [address] WBC (Bld) [#/Vol] 10.19 10*3/uL Normal 4.00-10.60 [facility] Comment on above: Performed By: #### L [id number] #### [facility] ([facility]) [address] [place] [address] CONSULTon 08-04-2023 CONSULT Inpatient consult to Cardiothoracic Surgery Consult performed by: Gian Cardona NP Consult ordered by: Lissette Delgado MD Reason for consult: ASD History Of Present Illness Daniel Lynn is a 47 y.o. female with PMH of Asthma and Obesity who was initially evaluated in [place] on 07/25 with with 4 days of worsening of SOB and chest tightness. Upon assessment in the ED she was saturating in the 80s on room air, CXR suggested bibasilar infiltrates, viral panel was positive for Rhino virus. Admitted for pneumonia, oxygen requirements and work of breathing had declined during her hospital stay. She was transitioned to BiPAP and moved to the ICU. Underwent echocardiogram which revealed preserved ejection fraction, with diastolic heart failure and severely dilated right atrium and ventricles, with RVSP of 99 mmHg. She was being diuresed with no significant improvement of symptoms, repeat ECHO showed the same findings but RVSP was down to 76 mmHg. Cardiology had been following the patient and they recommended transfer to [facility] for right heart catherization. She arrived to [facility] 08/01 where she was admitted to the ICU and started on diuretics- Lasix IV twice daily. Placed on BiPAP with alternating with high flow nasal cannula. Cardiology was consulted- repeat echo showed RVSP of 79 with very large right ventricle and right atrium. CT chest obtained which showed collapse of right middle lobe and small infiltration in the left lower lobe. Started on broad-spectrum antibiotic vancomycin and cefepime. Sputum culture remains negative. Blood culture remains negative. Patient remains afebrile. VQ scan obtained which was unremarkable. Connective tissue disease work-up were sent. Underwent right sided heart cath 08/02, which showed PA: 79/31 (48), PCWP: 12, preserved CI/CO- she was started on sildenafil for pulmonary hypertension. CTA heart structure ordered and findings consistent with secundum type ASD. CT Surgery was consulted for surgical evaluation and recommendations. Patient was seen beside. Remained on Salter 12 L saturation 95%. Did not appear to be in any respiratory distress. Talking with patient states she knew about the hole in her heart since she was 14. That was when it was originally diagnosed, it was proven by echocardiogram. States she only followed with her family doctor and no concern was ever brought up about it. She has had 2 C-sections in the past. Works full-time. States since being here in the hospital there has been improvement in her breathing and the swelling in her lower extremities. Endorses for the past 6 months she has had swelling in her lower extremities and feeling fatigued. Denies chest pain, palpitations. Past Medical History She has a past medical history of Asthma, COPD (chronic obstructive pulmonary disease) (CMS/HCC), Diabetes mellitus (CMS/HCC), Hypertension, MTHFR gene mutation, and Obesity. Surgical History She has no past surgical history on file. Social History She reports that she has been smoking cigarettes. She does not have any smokeless tobacco history on file. No history on file for alcohol use and drug use. Allergies Bactrim [sulfamethoxazole-trimethoprim], Lisinopril, and Penicillins Medications Medications Prior to Admission Medication Sig Dispense Refill Last Dose albuterol 90 mcg/actuation inhaler Inhale 2 puffs every 6 (six) hours if needed for wheezing or shortness of breath. hydroCHLOROthiazide (HYDRODiuril) 25 mg tablet Take 25 mg by mouth in the morning. verapamil SR (Calan-SR) 240 mg ER tablet Take 240 mg by mouth at bedtime. Do not crush or chew. Review of Systems Review of Systems: All 14 Systems Reviewed and Negative unless otherwise indicated in the above HPI. Physical Exam Vitals reviewed. Constitutional: General: She is not in acute distress. Appearance: Normal appearance. She is obese. She is ill-appearing. HENT: Head: Normocephalic and atraumatic. Nose: Nose normal. Mouth/Throat: Mouth: Mucous membranes are moist. Pharynx: Oropharynx is clear. Eyes: Extraocular Movements: Extraocular movements intact. Conjunctiva/sclera: Conjunctivae normal. Pupils: Pupils are equal, round, and reactive to light. Cardiovascular: Rate and Rhythm: Normal rate and regular rhythm. Pulses: Normal pulses. Heart sounds: Murmur heard. Pulmonary: Effort: Pulmonary effort is normal. No respiratory distress. Breath sounds: Normal breath sounds. Comments: 12L salter Abdominal: General: Abdomen is flat. Bowel sounds are normal. There is no distension. Palpations: Abdomen is soft. Musculoskeletal: General: Normal range of motion. Cervical back: Normal range of motion. Right lower leg: Edema (moderate, 3+) present. Left lower leg: Edema (moderate, 3+) present. Skin: General: Skin is warm and dry. Capillary Refill: Capillary refill takes less than 2 seconds. Neurological: Mental Status (more content not included)... Normal [facility] MAGNESIUMon 08-04-2023 Magnesium [Mass/Vol] 1.9 mg/dL Normal 1.9-2.7 [facility] Comment on above: Performed By: #### L [id number] #### [facility]) [address] [place] [address] PHOSPHORUSon 08-04-2023 Magnesium [Mass/Vol] 2.8 mg/dL Normal 2.5-5.0 [facility] Comment on above: Performed By: #### L [id number] #### [facility] ([facility]) [address] [place] [address] POCT GLUCOSE METER UNSOLICIT ED RESULTSon 08-04-2023 Glucose [Mass/Vol] 310 mg/dL High 70-105 [facility] Comment on above: Order Comment: Waive d Testing in the ED is performed under the ED CLIA certificate #[id number]. Result Comment: [email or web address] Performed By: #### L [id number] #### [facility] ([facility]) [address] [place] [address] Glucose [Mass/Vol] 248 mg/dL High 70-105 [facility] Comment on above: Order Comment: Waive d Testing in the ED is performed under the ED CLIA certificate #[id number]. Result Comment: [email or web address] Performed By: #### L [id number] #### [facility] ([facility]) [address] [place] [address] Glucose [Mass/Vol] 212 mg/dL High 70-105 [facility] Comment on above: Order Comment: Waive d Testing in the ED is performed under the ED CLIA certificate #[id number]. Result Comment: [email or web address] Performed By: #### L [id number] #### [facility] ([facility]) [address] [place] [address] Glucose [Mass/Vol] 185 mg/dL High 70-105 [facility] Comment on above: Order Comment: Waive d Testing in the ED is performed under the ED CLIA certificate #[id number]. Result Comment: [email or web address] Performed By: #### L [id number] #### [facility] ([facility]) [address] [place] [address] BASIC METABOLIC PANELon 07-18 Anion gap [Moles/Vol] 10 mmol/L Normal 7-20 [facility] Comment on above: Performed By: #### L [id number] #### [facility] ([facility]) [address] [place] [address] Calcium [Mass/Vol] 8.7 mg/dL Normal 8.6-10.3 [facility] Comment on above: Performed By: #### L [id number] #### [facility] ([facility]) [address] [place] [address] Chloride [Moles/Vol] 95 mmol/L Low 98-107 [facility] Comment on above: Performed By: #### L [id number] #### [facility] ([facility]) [address] [place] [address] CO2 [Moles/Vol] 32 mmol/L High 21-31 [facility] Comment on above: Performed By: #### L [id number] #### [facility] ([facility]) [address] [place] [address] Creatinine [Mass/Vol] 0.67 mg/dL Normal 0.60-1.20 [facility] Comment on above: Performed By: #### L [id number] #### [facility] ([facility]) [address] [place] [address] GLOMERULAR FILTRATION RATE ML/MIN/1.73 SQ M.PREDICTED 108.4 mL/min/1.73m*2 Normal >60.0 [facility] Comment on above: Result Comment: The [facility]???s estimated glomerular filtration rate (eGFR) will no longer include consideration of race in its calculation. The National Kidney Foundation???s eGFR Task Force developed new recommendations for the estimation of the glomerular filtration rate in the [place] They recommend immediate implementation of the new equation refit without the race variable in all laboratories because the calculation does not include race. In addition to not including race in the calculation and reporting, it included diversity in its development, and has acceptable performance characteristics and potential consequences that do not disproportionately affect any one group of individuals. Performed By: #### L [id number] #### [facility] ([facility]) [address] [place] [address] Glucose [Mass/Vol] 277 mg/dL High 70-100 [facility] Comment on above: Performed By: #### L [id number] #### [facility] ([facility]) [address] [place] [address] Potassium [Moles/Vol] 3.6 mmol/L Normal 3.5-5.1 [facility] Comment on above: Performed By: #### L [id number] #### [facility] ([facility]) [address] [place] [address] Sodium [Moles/Vol] 133 mmol/L Low 136-145 [facility] Comment on above: Performed By: #### L [id number] #### [facility] ([facility]) [address] [facility] [place] [address] Urea nitrogen [Mass/Vol] 32 mg/dL High 7-25 [facility] Comment on above: Performed By: #### L [id number] #### [facility] ([facility]) [address] [place] [address] UREA NITROGEN/CREATININE (MA SS RATIO) IN SER/PLAS 47.8 Normal [facility] Comment on above: Performed By: #### L [id number] #### [facility] ([facility]) [address] [place] [address] CBCon 08-03-2023 Erythrocyte distribution wid th (RBC) [Ratio] 13.0 % Normal 11.5-15.0 [facility] Comment on above: Performed By: #### L [id number] #### [facility] ([facility]) [address] [place] [address] ERYTHROCYTE MEAN CORPUSCULAR HEMOGLOBIN CONCENTRATION (G/DL) BY AUTOMATED 32.7 g/dL Normal 32.0-35.0 [facility] Comment on above: Performed By: #### L [id number] #### [facility] ([facility]) [address] [place] [address] Hematocrit (Bld) [Volume fraction] 54.8 % High 36.0-48.0 [facility] Comment on above: Performed By: #### L [id number] #### [facility] ([facility]) [address] [place] [address] Hemoglobin (Bld) [Mass/Vol] 17.9 g/dL High 12.0-15. 0 [facility] Comment on above: Performed By: #### L [id number] #### [facility] ([facility]) [address] [place] [address] MCH (RBC) [Entitic mass] 30.5 pg Normal 27.0-33.0 [facility] Comment on above: Performed By: #### L [id number] #### [facility] ([facility]) [address] [place] [address] MCV (RBC) [Entitic vol] 93.5 fL Normal 82.0-98.0 [facility] Comment on above: Performed By: #### L [id number] #### [facility] ([facility]) [address] [place] [address] PLATELETS (10*3/UL) IN BLOOD AUTOMATED COUNT 208 10*3/uL Normal 150-400 [facility] Comment on above: Performed By: #### L [id number] #### [facility] ([facility]) [address] [place] [address] RBC (Bld) [#/Vol] 5.86 10*6/uL High 3.80-5.00 [facility] Comment on above: Performed By: #### L [id number] #### [facility] ([facility]) [address] [place] [address] WBC (Bld) [#/Vol] 12.73 10*3/uL High 4.00-10.60 [facility] Comment on above: Performed By: #### L [id number] #### [facility] ([facility]) [address] [place] [address] MAGNESIUMon 08-03-2023 Magnesium [Mass/Vol] 1.9 mg/dL Normal 1.9-2.7 [facility] Comment on above: Performed By: #### L [id number] #### [facility] ([facility]) [address] [place] [address] PHOSPHORUSon 08-03-2023 Magnesium [Mass/Vol] 3.3 mg/dL Normal 2.5-5.0 [facility] Comment on above: Performed By: #### L [id number] #### [facility] ([facility]) [address] [place] [address] POCT GLUCOSE METER UNSOLICIT ED RESULTSon 08-03-2023 Glucose [Mass/Vol] 286 mg/dL High 70-105 [facility] Comment on above: Order Comment: Waive d Testing in the ED is performed under the ED CLIA certificate #[id number]. Result Comment: [email or web address] Performed By: #### L [id number] #### [facility] ([facility]) [address] [place] [address] Glucose [Mass/Vol] 214 mg/dL High 70-105 [facility] Comment on above: Order Comment: Waive d Testing in the ED is performed under the ED CLIA certificate #[id number]. Result Comment: [email or web address] Performed By: #### L [id number] #### [facility] ([facility]) [address] [place] [address] Glucose [Mass/Vol] 239 mg/dL High 70-105 [facility] Comment on above: Order Comment: Waive d Testing in the ED is performed under the ED CLIA certificate #[id number]. Result Comment: [email or web address] Performed By: #### L [id number] #### [facility] ([facility]) [address] [place] [address] Glucose [Mass/Vol] 234 mg/dL High 70-105 [facility] Comment on above: Order Comment: Waive d Testing in the ED is performed under the ED CLIA certificate #[id number]. Result Comment: [email or web address] Performed By: #### L [id number] #### [facility] ([facility]) [address] [place] [address] TSH3 REFLEX TO FT4on 023 THYROTROPIN (MIU/L) IN SER/PLAS BY DETECTION LIMIT <= 0.05 MIU/L 0.56 mIU/L Normal 0.34-5.60 [facility] Comment on above: Performed By: #### L [id number] #### [facility] ([facility]) [address] [place] [address] ANAon 08-02-2023 PHANI TITER <1:40 Normal <=1:40 [facility] Comment on above: Result Comment: Test performed using SERGE IFA PHANI Hep-2 Test, a pre-standardized assay designed for the qualitative and semi-quantitative detection of antinuclear antibodies. Performed By: #### L [id number] #### [facility] ([facility]) [address] [place] [address] ANTI-CENTROMERE ANTIBODYon 10-02-2022 ANTI-CENTROMERE ANTIBODY Negative Normal Negative [facility] Comment on above: Performed By: #### L [id number] ####[facility] ([facility])[address] [place] [address] ANTI-DNASE B ANTIBODYon 07-18 DNASE B ANTIBODY <86 Normal <=259 [facility] Comment on above: Result Comment: REFE RENCE INTERVAL: DNAse B Antibody Elevated titers of antideoxyribonuclease B antibody (anti-DNase B) or antistreptolysin O antibody (ASO) indicate a recent group A Streptococcus infection. Anti-DNase B antibodies typically remain elevated longer than ASO and may remain elevated for several months after infection. Patients suspected of having complications related to a recent Streptococcus infection such as acute glomerulonephritis or acute rheumatic fever may have elevated anti-DNase B but normal ASO antibody titers. A negative or very low anti-DNase B and ASO antibody titers, especially from a specimen tested 2 weeks after a suspected infection, indicates unlikely incidence of a recent Streptococcus infection. Performed By: [employer] [address] [place] [address] [employer]rel Builder: Saturnino Rai MD, PhD CLIA Number: [id number] Performed By: #### L [id number] #### [facility] ([facility]) [address] [place] [address] ANTI-RITU 1 ANTIBODY, IGGon ANTI RITU-1 IGG 1 AU/mL Normal 0-40 [facility] Comment on above: Result Comment: INTE RPRETIVE INFORMATION: Ritu-1 Antibody, IgG 29 AU/mL or less.........Negative 30-40 AU/mL..............Equivocal 41 AU/mL or greater......Positive Presence of Ritu-1 (antihistidyl transfer RNA [t-RNA] synthetase) antibody is associated with polymyositis and may also be seen in patients with dermatomyositis. Ritu-1 antibody is associated with pulmonary involvement (interstitial lung disease), Raynaud phenomenon, arthritis, and farm machinery set up mechanic's hands (implicated in antisynthetase syndrome). Performed By: [employer] [address] [place] [address] [employer] Builder: Saturnino Rai MD, PhD CLIA Number: [id number] Performed By: #### L [id number] #### [facility] ([facility]) [address] [place] [address] ARTERIAL BLOOD GAS WITH IONI ZED CALCIUMon 08-02-2023 Base excess Calc (Bld) [Moles/Vol] 13.8 mmol/L High -2.0-3.0 [facility] Comment on above: Order Comment: 04/26 Performed By: #### L [id number] #### [facility] ([facility]) [address] [place] [address] CALCIUM IONIZED (MMOL/L) IN BLOOD 1.08 mmol/L Low 1.15-1.33 [facility] Comment on above: Order Comment: 04/26 Performed By: #### L [id number] #### [facility] ([facility]) [address] [place] [address] CO2 (Bld) [Partial pressure] 60 mm[Hg] Critically high 35-48 [facility] Comment on above: Order Comment: 04/26 Performed By: #### L [id number] #### [facility] ([facility]) [address] [place] [address] FIO2 90 % Normal [facility] Comment on above: Order Comment: 04/26 Performed By: #### L [id number] #### [facility] ([facility]) [address] [place] [address] HCO3 (Bld) [Moles/Vol] 40.8 mmol/L High 21.0-28.0 [facility] Comment on above: Order Comment: 04/26 Performed By: #### L [id number] #### [facility] ([facility]) [address] [place] [address] Oxygen (Bld) [Partial pressure] 89 mm[Hg] Normal 83-100 [facility] Comment on above: Order Comment: 04/26 Performed By: #### L [id number] #### [facility] ([facility]) [address] [place] [address] OXYGEN SATURATION (%) IN ARTERIAL BLOOD 97.8 % Normal 94.0-98.0 [facility] Comment on above: Order Comment: 04/26 Performed By: #### L [id number] #### [facility] ([facility]) [address] [place] [address] pH (Bld) 7.44 [pH] Normal 7.35-7.45 [facility] Comment on above: Order Comment: 04/26 Performed By: #### L [id number] #### [facility] [address] [place] [address] SOURCE OF OXYGEN Bi-PAP Normal [facility] Comment on above: Order Comment: 04/26 Performed By: #### L [id number] #### [facility] [address] [place] [address] B-TYPE NATRIURETIC PEPTIDEon 08-02-2023 Natriuretic peptide B (Bld) [Mass/Vol] 37 pg/mL Normal 0-100 [facility] Comment on above: Performed By: #### L [id number] #### [facility] ([facility]) [address] [place] [address] BASIC METABOLIC PANELon 11- Anion gap [Moles/Vol] 10 mmol/L Normal 7-20 [facility] Comment on above: Performed By: #### L [id number] #### [facility] ([facility]) [address] [place] [address] Calcium [Mass/Vol] 8.8 mg/dL Normal 8.6-10.3 [facility] Comment on above: Performed By: #### L [id number] #### [facility] ([facility]) [address] [place] [address] Chloride [Moles/Vol] 91 mmol/L Low 98-107 [facility] Comment on above: Performed By: #### L [id number] #### [facility] ([facility]) [address] [place] [address] CO2 [Moles/Vol] 39 mmol/L High 21-31 [facility] Comment on above: Performed By: #### L [id number] #### [facility] ([facility]) [address] [place] [address] Creatinine [Mass/Vol] 0.70 mg/dL Normal 0.60-1.20 [facility] Comment on above: Performed By: #### L [id number] #### [facility] ([facility]) [address] [place] [address] GLOMERULAR FILTRATION RATE ML/MIN/1.73 SQ M.PREDICTED 107.3 mL/min/1.73m*2 Normal >60.0 [facility] Comment on above: Result Comment: The [facility]???s estimated glomerular filtration rate (eGFR) will no longer include consideration of race in its calculation. The National Kidney Foundation???s eGFR Task Force developed new recommendations for the estimation of the glomerular filtration rate in the [place] They recommend immediate implementation of the new equation refit without the race variable in all laboratories because the calculation does not include race. In addition to not including race in the calculation and reporting, it included diversity in its development, and has acceptable performance characteristics and potential consequences that do not disproportionately affect any one group of individuals. Performed By: #### L [id number] #### [facility] ([facility]) [address] [place] [address] Glucose [Mass/Vol] 231 mg/dL High 70-100 [facility] Comment on above: Performed By: #### L [id number] #### [facility] ([facility]) [address] [place] [address] Potassium [Moles/Vol] 3.7 mmol/L Normal 3.5-5.1 [facility] Comment on above: Performed By: #### L [id number] #### [facility] ([facility]) [address] [place] [address] Sodium [Moles/Vol] 136 mmol/L Normal 136-145 [facility] Comment on above: Performed By: #### L [id number] #### [facility] ([facility]) [address] [place] [address] Urea nitrogen [Mass/Vol] 29 mg/dL High 7-25 [facility] Comment on above: Performed By: #### L [id number] #### [facility] ([facility]) [address] [place] [address] UREA NITROGEN/CREATININE (MA SS RATIO) IN SER/PLAS 41.4 Normal [facility] Comment on above: Performed By: #### L [id number] #### [facility] ([facility]) [address] [place] [address] CBCon 08-02-2023 Erythrocyte distribution wid th (RBC) [Ratio] 13.2 % Normal 11.5-15.0 [facility] Comment on above: Performed By: #### L [id number] #### [facility] ([facility]) [address] [place] [address] ERYTHROCYTE MEAN CORPUSCULAR HEMOGLOBIN CONCENTRATION (G/DL) BY AUTOMATED 32.4 g/dL Normal 32.0-35.0 [facility] Comment on above: Performed By: #### L [id number] #### [facility] ([facility]) [address] [place] [address] Hematocrit (Bld) [Volume fraction] 56.2 % High 36.0-48.0 [facility] Comment on above: Performed By: #### L [id number] #### [facility] ([facility]) [address] [place] [address] Hemoglobin (Bld) [Mass/Vol] 18.2 g/dL High 12.0-15. 0 [facility] Comment on above: Performed By: #### L [id number] #### [facility] ([facility]) [address] [place] [address] MCH (RBC) [Entitic mass] 30.6 pg Normal 27.0-33.0 [facility] Comment on above: Performed By: #### L [id number] #### [facility] ([facility]) [address] [place] [address] MCV (RBC) [Entitic vol] 94.5 fL Normal 82.0-98.0 [facility] Comment on above: Performed By: #### L [id number] #### [facility] ([facility]) [address] [place] [address] PLATELETS (10*3/UL) IN BLOOD AUTOMATED COUNT 237 10*3/uL Normal 150-400 [facility] Comment on above: Performed By: #### L [id number] #### [facility] ([facility]) [address] [place] [address] RBC (Bld) [#/Vol] 5.95 10*6/uL High 3.80-5.00 [facility] Comment on above: Performed By: #### L [id number] #### [facility] ([facility]) [address] [place] [address] WBC (Bld) [#/Vol] 12.17 10*3/uL High 4.00-10.60 [facility] Comment on above: Performed By: #### L [id number] #### [facility] ([facility]) [address] [place] [address] CT CHEST HIGH RESOLUTION WO CONTRASTon 08-02-2023 CT CHEST HIGH RESOLUTION WO CONTRAST STUDY: CT chest without contrast CLINICAL HISTORY: Shortness of breath, difficulty breathing, interstitial lung disease, pulmonary hypertension COMPARISON: 07/27/2023 TECHNIQUE: CT chest was performed utilizing 5 mm axial reconstructions without contrast. Coronal and sagittal reformatted images were obtained and reviewed. Automated exposure control was utilized. FINDINGS: No pleural or pericardial effusion. No enlarged axillary or mediastinal lymph nodes. There is dilated pulmonary artery suggesting pulmonary hypertension. Thoracic aorta is normal caliber. Prone imaging could not be obtained. There is atelectatic changes seen within the left lower lobe. There are patchy scattered groundglass opacities throughout both lungs slightly decreased from the prior examination which may represent evolving or decreasing inflammatory or infectious process. There is no septal thickening and honeycombing formation. There is complete volume loss and collapse of the middle lobe. No pneumothorax. Central airways patent. Calcified gallstones are seen. Multilevel degenerative changes of the thoracic spine. IMPRESSION: 1. New complete volume loss and collapse of the middle lobe. 2. No current CT findings to suggest interstitial lung disease. 3. Multifocal opacities in both lungs have decreased suggesting resolving atypical inflammatory or infectious process. Atelectatic changes of the left lower lobe. 4. Dilated pulmonary artery suggesting pulmonary hypertension. 5. Cholelithiasis. All CT scans at this facility use dose modulation, iterative reconstruction, and/or weight based dosing when appropriate to reduce radiation dose to as low as reasonably achievable. Electronically signed: Lonnie Tolentino. Normal [facility] CTA HEART STRUCTURE MORPHOLO GY W IV CONTRASTon 08-02-2023 CTA HEART STRUCTURE MORPHOLOGY W IV CONTRAST CTA HEART STRUCTURE MORPHOLOGY W IV CONTRAST 08/02/2023 6:12 PM CLINICAL INDICATION: Patent foramen ovale on echo. Evaluate for shunt. CONTRAST: ML Omnipaque 350 TECHNIQUE: Multidetector CT angiogram was obtained using prospective ECG gating. Imaging was performed from the level of the clavicles to the level of the hemidiaphragms. In order to provide better evaluation of the anatomy and disease process, advanced off-line 3-D post-processing techniques, including volume rendered, maximal intensity projection, curved planar reformatted images were performed. Medication administered in preparation for the examination located in nursing documentation. All CT scans at this facility use dose modulation, iterative reconstruction, and/or weight based dosing when appropriate to reduce radiation dose to as low as reasonably achievable COMPARISON: None. FINDINGS: Limited secondary to patient's body habitus. Study was conducted for cardiac morphology and was not performed for evaluation of the coronary arteries. Severe cardiomegaly. Right ventricle and right atrium significantly enlarged There is a large communication between the right atrium and the left atrium across the intra-atrial septum in the mid atrial septum. This measures approximately 2.8 cm. Suspect secundum type ASD. Could represent a patent foramen ovale but this is more of a rectal communication between the 2 atria than the expected possible morphology of a patent foramen ovale. Severe dilatation of the pulmonary artery main pulmonary artery is 4.2 cm. Likely represents volume overload on the right due to shunting. There is actually some differential enhancement across the central septal defect which may represent the actual shunt. No pericardial effusion Large [id number] images obtained but there is no evidence of definite anomalous pulmonary venous return. EXTRACARDIAC FINDINGS: Other lung findings: Bilateral lower lobe airspace density most consistent with atelectasis. Airway: Normal. Pleura: No pleural effusion, thickening, or pneumothorax. Thoracic aorta and great vessels: There is no aneurysm Lymph nodes: No enlarged thoracic lymph nodes. Thoracic spine: Normal. Chest wall: Normal. Visualized upper abdomen: Normal. IMPRESSION: *Communication between the right and left atrium. Addition in appearance favors secundum type ASD. Pharyngeal diagnosis could include patent foramen ovale but that often has a more tunnel like morphology. *Large right atrium, right ventricle and dilated pulmonary artery as detailed above. Endings consistent with right-sided volume overload due to left to right shunting. *Lobe airspace density most consistent with atelectasis Electronically signed: Cade Farley. Normal [facility] HPon 08-02-2023 HP H&P reviewed. The daniel richards was examined and there are no changes to the H&P. Normal [facility] LEGIONELLA ANTIGEN, URINEon 08-02-2023 LEGIONELLA AG, UR Negative Normal NEG [facility] Comment on above: Result Comment: L. p neumophila serogroup 1 antigen not detected. A negative result does not exclude infection with Leginella pnemophila serogroup 1 nor does it rule out other microbial-caused respiratory infections of disease caused by other serogroups of Legionella pneumophila. Test Performed by [facility] [address] [place], [place] [id number] - Released 08/02/2023 19:58 Performed By: #### L [id number] #### [facility] ([facility]) [address] [place] [address] MAGNESIUMon 08-02-2023 Magnesium [Mass/Vol] 2.0 mg/dL Normal 1.9-2.7 [facility] Comment on above: Performed By: #### L [id number] #### [facility] ([facility]) [address] [place] [address] MRSA/MSSA DNA NASALon 2022 MRSA DNA Negative Normal Negative [facility] Comment on above: Order Comment: Waive d Testing in the ED is performed under the ED CLIA certificate #[id number]. Performed By: #### L [id number] #### [facility] ([facility]) [address] [place] [address] MSSA DNA Negative Normal Negative [facility] Comment on above: Order Comment: Waive d Testing in the ED is performed under the ED CLIA certificate #[id number]. Performed By: #### L [id number] #### [facility] ([facility]) [address] [place] [address] NM LUNG PERFUSION PARTICULAT Cruzito 08-02-2023 NM LUNG PERFUSION PARTICULATE STUDY: Ventilation perfusion lung scan CLINICAL HISTORY: Shortness of breath, difficulty breathing chronic thromboembolic pulmonary hypertension COMPARISON: None. TECHNIQUE: Multiple planar images of the chest were obtained. Perfusion scanning was performed the intravenous ministration of 5.3 mCi technetium 99m MAA. Multiplanar images of the chest were obtained. FINDINGS: Correlation made to chest radiograph of 08/02/2023 Low probability of pulmonary thromboembolism. There is a small effusion deficits of the left lower lobe. IMPRESSION: 1. Low probability of pulmonary thromboembolism. Electronically signed: Lonnie Tolentino. Normal [facility] PHOSPHORUSon 08-02-2023 Magnesium [Mass/Vol] 4.5 mg/dL Normal 2.5-5.0 [facility] Comment on above: Performed By: #### L [id number] #### [facility] ([facility]) [address] [facility] [place] [address] POCT GLUCOSE METER UNSOLICIT ED RESULTSon 08-02-2023 Glucose [Mass/Vol] 337 mg/dL High 70-105 [facility] Comment on above: Order Comment: Waive d Testing in the ED is performed under the ED CLIA certificate #[id number]. Result Comment: ebol tz Performed By: #### L [id number] #### [facility] ([facility]) [address] [facility] [place] [address] Glucose [Mass/Vol] 164 mg/dL High 70-105 [facility] Comment on above: Order Comment: Waive d Testing in the ED is performed under the ED CLIA certificate #[id number]. Result Comment: [email or web address] [email or web address] Performed By: #### L [id number] #### [facility] ([facility]) [address] [facility] [place] [address] Glucose [Mass/Vol] 218 mg/dL High 70-105 [facility] Comment on above: Order Comment: Waive d Testing in the ED is performed under the ED CLIA certificate #[id number]. Result Comment: ebol tz Performed By: #### L [id number] #### [facility] ([facility]) [address] [place] [address] PROCALCITONIN TESTon 023 PROCALCITONIN IN BLOOD 0.04 ng/mL Normal 0.00-0.10 [facility] Comment on above: Result Comment: Suspected Lower Respirat ory Tract Infection: 0.1-0.25 ng/mL - Low likelihood for bacterial infection;Antibiotics discouraged.* >0.25 ng/mL - Increased likelihood bacterial infection;Antibiotics encouraged. Suspected Sepsis: Strongly consider initiating antibiotics in all unstable patients. 0.1-0.5 ng/mL - Low likelihood for sepsis; Antibiotics discouraged.* >0.5 ng/mL - Increased likelihood sepsis; Antibiotics encouraged. >2.0 ng/mL - High risk of sepsis/septic shock; Antibiotics strongly encouraged. *Recommend retesting PCT within 6-12 hours if clinically indicated and initial PCT<0.5ng/mL Performed By: #### L [id number] ####[facility] ([facility])[address] [place] [address] RHEUMATOID FACTORon 08-02-20 23 Rheumatoid factor Qn [IU]/mL Normal 0-20 [facility] Comment on above: Performed By: #### L [id number] #### [facility] ([facility]) [address] [place] [address] RNA POLYMERASE III ANTIBODY IGGon 08-02-2023 RNA POLYMERASE III ANTIBODY, IGG 11 Units Normal 0-1 9 [facility] Comment on above: Result Comment: INTE RPRETIVE INFORMATION: RNA Polymerase III Antibody, IgG 19 Units or less ......Negative 20 - 39 Units .........Weak Positive 40 - 80 Units .........Moderate Positive 81 Units or greater ...Strong Positive The presence of RNA polymerase III IgG antibody, when considered in conjunction with other laboratory and clinical findings, is an aid in the diagnosis of systemic sclerosis (SSc) with increased incidence of skin involvement and renal crisis with the diffuse cutaneous form of SSc. RNA polymerase III IgG antibody occur in about 11-23 percent of SSc patients, and typically in the absence of anti-centromere and anti-Scl-70 antibodies. A negative result indicates no detectable IgG antibodies to the dominant antigen of RNA polymerase III and does not rule out the possibility of SSc. False-positive results may also occur due to non-specific binding of immune complexes. Strong clinical correlation is recommended. If clinical suspicion remains, consider additional testing for other antibodies associated with SSc, including centromere, Scl-70, U3-DIESEL ENGINE PIPE FITTER, PM/Scl, or Th/To. Performed By: [employer] [address] [place] [id number] [employer] Builder: Saturnino Rai MD, PhD CLIA Number: [id number] Performed By: #### L [id number] #### [facility] ([facility]) [address] [place] [address] SJOGRENS SYNDROME ANTIBODIES A AND Bon 08-02-2023 IVAN TO SSA (RO) ANTIBODY Negative Normal Negative [facility] Comment on above: Performed By: #### L [id number] ####[facility] ([facility])[address] [place] [address] IVAN TO SSB (LA) ANTIBODY Negative Normal Negative [facility] Comment on above: Performed By: #### L [id number] ####[facility] ([facility])[address] [place] [address] STREP PNEUMONIAE ANTIGEN, UR INEon 08-02-2023 STREPTOCOCCUS PNEUMONIAE AG PRESENCE IN URINE Negative Normal Negative [facility] Comment on above: Performed By: #### L [id number] #### [facility] ([facility]) [address] [place] [address] TROPONIN Ion 08-02-2023 Troponin I.cardiac [Mass/Vol] 0.03 ng/mL Normal 0.00-0 .04 [facility] Comment on above: Performed By: #### L [id number] ####[facility] ([facility])[address] [place] [address] 30on 08-01-2023 30 The patient is Moder ately Unstable - Medium risk of patient condition declining or worsening The patient's goals for the shift include comfort The clinical goals for the shift include stable hemodynamics Over the shift, the patient did not make progress toward the following goals. Barriers to progression include obesity and history of smoking. Recommendations to address these barriers include ensuring proper positioning, support, and education. Normal [facility] APTTon 08-01-2023 ACTIVATED PARTIAL THROMBOPLASTIN TIME IN PPP BY COAGULATION ASSAY 24.1 Seconds Low 25.0-35.0 [facility] Comment on above: Result Comment: Clin ical significance of the APTT is questionable in the presence of heparin. Performed By: #### L [id number] #### [facility] ([facility]) [address] [facility] [place] [address] ARTERIAL BLOOD GAS WITH CO-O XIMETRYon 08-01-2023 Base excess Calc (Bld) [Moles/Vol] 20.9 mmol/L High -2.0-3.0 [facility] Comment on above: Order Comment: bipap Performed By: #### L [id number] #### [facility] ([facility]) [address] [place] [address] CARBOXYHEMOGLOBIN/HEMOGLOBIN TOTAL % IN BLOOD 1.5 % Normal 0.0-3.0 [facility] Comment on above: Order Comment: bipap Performed By: #### L [id number] #### [facility] ([facility]) [address] [place] [address] CO2 (Bld) [Partial pressure] 58 mm[Hg] Critically high 35-48 [facility] Comment on above: Order Comment: bipap Performed By: #### L [id number] #### [facility] ([facility]) [address] [place] [address] DEOXYGENATED HEMOGLOBIN IN BLOOD 5.4 % High 1-5 [facility] Comment on above: Order Comment: bipap Performed By: #### L [id number] #### [facility] ([facility]) [address] [place] [address] FIO2 40 % Normal [facility] Comment on above: Order Comment: bipap Performed By: #### L [id number] #### [facility] ([facility]) [address] [place] [address] HCO3 (Bld) [Moles/Vol] 48.5 mmol/L High 21.0-28.0 [facility] Comment on above: Order Comment: bipap Performed By: #### L [id number] #### [facility] ([facility]) [address] [place] [address] Hemoglobin (Bld) [Mass/Vol] 18.3 g/dL Critically high 11.7-17.4 [facility] Comment on above: Order Comment: bipap Performed By: #### L [id number] #### [facility] ([facility]) [address] [place] [address] METHEMOGLOBIN/100 IN BLOOD 0.8 % Normal 0.0-1.5 [facility] Comment on above: Order Comment: bipap Performed By: #### L [id number] #### [facility] ([facility]) [address] [place] [address] Oxygen (Bld) [Partial pressure] 66 mm[Hg] Low 83-1 00 [facility] Comment on above: Order Comment: bipap Performed By: #### L [id number] #### [facility] ([facility]) [address] [place] [address] OXYGEN SATURATION (%) IN ARTERIAL BLOOD 94.5 % Normal 94.0-98.0 [facility] Comment on above: Order Comment: bipap Performed By: #### L [id number] #### [facility] ([facility]) [address] [place] [address] OXYGENATED HEMOGLOBIN IN BLOOD 92.3 % Normal 90.0- 95.0 [facility] Comment on above: Order Comment: bipap Performed By: #### L [id number] #### [facility] ([facility]) [address] [place] [address] pH (Bld) 7.53 [pH] High 7.35-7.45 [facility] Comment on above: Order Comment: bipap Performed By: #### L [id number] #### [facility] ([facility]) [address] [place] [address] RESPIRATORY RATE 14 Normal [facility] Comment on above: Order Comment: bipap Performed By: #### L [id number] #### [facility] ([facility]) [address] [place] [address] SOURCE OF OXYGEN Bi-PAP Normal [facility] Comment on above: Order Comment: bipap Performed By: #### L [id number] #### [facility] ([facility]) [address] [place] [address] B-TYPE NATRIURETIC PEPTIDEon 08-01-2023 Natriuretic peptide B (Bld) [Mass/Vol] 145 pg/mL High 0-100 [facility] Comment on above: Performed By: #### L [id number] #### [facility] ([facility]) [address] [place] [place] [address] BLOOD CULTUREon 08-01-2023 Bacteria identified Cx Nom (Bld) No growth at 5 days Normal [facility] Comment on above: Performed By: #### L [id number] #### [facility] ([facility]) [address] [place] [address] CBC WITH AUTO DIFFERENTIALon 08-01-2023 Basophils (Bld) [#/Vol] 0.02 10*3/uL Normal 0.00-0.20 [facility] Comment on above: Performed By: #### L [id number] #### [facility] ([facility]) [address] [place] [place] [address] Basophils/100 WBC (Bld) 0.2 % Normal 0.0-1.0 [facility] Comment on above: Performed By: #### L [id number] #### [facility] ([facility]) [address] [place] [place] [address] Eosinophils (Bld) [#/Vol] 0.01 10*3/uL Normal 0.00-0.5 0 [facility] Comment on above: Performed By: #### L [id number] #### [facility] ([facility]) [address] [place] [address] Eosinophils/100 WBC (Bld) 0.1 % Normal 0.0-6.0 [facility] Comment on above: Performed By: #### L [id number] #### [facility] ([facility]) [address] [place] [address] Erythrocyte distribution wid th (RBC) [Ratio] 13.2 % Normal 11.5-15.0 [facility] Comment on above: Performed By: #### L [id number] #### [facility] ([facility]) [address] [facility] [address] ERYTHROCYTE MEAN CORPUSCULAR HEMOGLOBIN CONCENTRATION (G/DL) BY AUTOMATED 33.1 g/dL Normal 32.0-35.0 [facility] Comment on above: Performed By: #### L [id number] #### [facility] ([facility]) [address] [place] [address] Hematocrit (Bld) [Volume fraction] 54.1 % High 36.0-48.0 [facility] Comment on above: Performed By: #### L [id number] #### [facility] ([facility]) [address] [place] [address] Hemoglobin (Bld) [Mass/Vol] 17.9 g/dL High 12.0-15. 0 [facility] Comment on above: Performed By: #### L [id number] #### [facility] ([facility]) [address] [place] [address] Immature granulocytes (Bld) [#/Vol] 0.10 10*3/uL Normal 0.00-0.20 [facility] Comment on above: Performed By: #### L [id number] #### [facility] ([facility]) [address] [facility] [place] [address] Immature granulocytes/100 WBC (Bld) 1.1 % High 0.0-1.0 [facility] Comment on above: Performed By: #### L [id number] #### [facility] ([facility]) [address] [place] [address] Lymphocytes (Bld) [#/Vol] 0.40 10*3/uL Low 1.20-4.0 0 [facility] Comment on above: Performed By: #### L [id number] #### [facility] ([facility]) [address] [place] [address] Lymphocytes/100 WBC (Bld) 4.2 % Low 20.0-45.0 [facility] Comment on above: Performed By: #### L [id number] #### [facility] ([facility]) [address] [place] [address] MCH (RBC) [Entitic mass] 30.6 pg Normal 27.0-33.0 [facility] Comment on above: Performed By: #### L [id number] #### [facility] ([facility]) [address] [place] [address] MCV (RBC) [Entitic vol] 92.5 fL Normal 82.0-98.0 [facility] Comment on above: Performed By: #### L [id number] #### [facility] ([facility]) [address] [place] [address] Monocytes (Bld) [#/Vol] 0.50 10*3/uL Normal 0.10-1.00 [facility] Comment on above: Performed By: #### L [id number] #### [facility] ([facility]) [address] [place] [address] Monocytes/100 WBC (Bld) 5.3 % Normal 5.0-12.0 [facility] Comment on above: Performed By: #### L [id number] #### [facility] ([facility]) [address] [place] [address] Neutrophils (Bld) [#/Vol] 8.47 10*3/uL High 1.60-7.6 0 [facility] Comment on above: Performed By: #### L [id number] #### [facility] ([facility]) [address] [place] [address] Neutrophils/100 WBC (Bld) 89.1 % High 40.0-72.0 [facility] Comment on above: Performed By: #### L [id number] #### [facility] ([facility]) [address] [place] [address] NRBC (PER 100 WBCS) BY AUTOM ATED COUNT 0.0 % Normal 0 [facility] Comment on above: Performed By: #### L [id number] #### [facility] ([facility]) [address] [place] [address] PLATELETS (10*3/UL) IN BLOOD AUTOMATED COUNT 265 10*3/uL Normal 150-400 [facility] Comment on above: Performed By: #### L [id number] #### [facility] ([facility]) [address] [place] [address] RBC (Bld) [#/Vol] 5.85 10*6/uL High 3.80-5.00 [facility] Comment on above: Performed By: #### L [id number] #### [facility] ([facility]) [address] [place] [address] WBC (Bld) [#/Vol] 9.50 10*3/uL Normal 4.00-10.60 [facility] Comment on above: Performed By: #### L [id number] #### [facility] ([facility]) [address] [place] [address] COMPREHENSIVE METABOLIC PANE Matty 08-01-2023 Albumin [Mass/Vol] 3.5 g/dL Normal 3.5-5.7 [facility] Comment on above: Performed By: #### L [id number] #### [facility] ([facility]) [address] [place] [address] ALP [Catalytic activity/Vol] 54 U/L Normal 34-104 [facility] Comment on above: Performed By: #### L [id number] #### [facility] ([facility]) [address] [place] [address] ALT [Catalytic activity/Vol] 10 U/L Normal 7-52 [facility] Comment on above: Performed By: #### L [id number] #### [facility] ([facility]) [address] [place] [address] Anion gap [Moles/Vol] 10 mmol/L Normal 7-20 [facility] Comment on above: Performed By: #### L [id number] #### [facility] ([facility]) [address] [place] [address] AST [Catalytic activity/Vol] 8 U/L Low 13-39 [facility] Comment on above: Performed By: #### L [id number] #### [facility] ([facility]) [address] [place] [address] Bilirubin [Mass/Vol] 0.9 mg/dL Normal 0.3-1.0 [facility] Comment on above: Performed By: #### L [id number] #### [facility] ([facility]) [address] [place] [address] Calcium [Mass/Vol] 9.0 mg/dL Normal 8.6-10.3 [facility] Comment on above: Performed By: #### L [id number] #### [facility] ([facility]) [address] [place] [address] Chloride [Moles/Vol] 90 mmol/L Low 98-107 [facility] Comment on above: Performed By: #### L [id number] #### [facility] ([facility]) [address] [place] [address] CO2 [Moles/Vol] 40 mmol/L High 21-31 [facility] Comment on above: Performed By: #### L [id number] #### [facility] ([facility]) [address] [place] [address] Creatinine [Mass/Vol] 0.60 mg/dL Normal 0.60-1.20 [facility] Comment on above: Performed By: #### L [id number] #### [facility] ([facility]) [address] [place] [address] GLOMERULAR FILTRATION RATE ML/MIN/1.73 SQ M.PREDICTED 111.3 mL/min/1.73m*2 Normal >60.0 [facility] Comment on above: Result Comment: The [facility]???s estimated glomerular filtration rate (eGFR) will no longer include consideration of race in its calculation. The National Kid[employer] Foundation???s eGFR Task Force developed new recommendations for the estimation of the glomerular filtration rate in the [place] They recommend immediate implementation of the new equation refit without the race variable in all laboratories because the calculation does not include race. In addition to not including race in the calculation and reporting, it included diversity in its development, and has acceptable performance characteristics and potential consequences that do not disproportionately affect any one group of individuals. Performed By: #### L [id number] #### [facility] ([facility]) [address] [place] [address] Glucose [Mass/Vol] 280 mg/dL High 70-100 [facility] Comment on above: Performed By: #### L [id number] #### [facility] ([facility]) [address] [facility] [place] [address] Potassium [Moles/Vol] 3.5 mmol/L Normal 3.5-5.1 [facility] Comment on above: Performed By: #### L [id number] #### [facility] ([facility]) [address] [place] [address] Protein [Mass/Vol] 6.4 g/dL Normal 6.0-8.3 [facility] Comment on above: Performed By: #### L [id number] #### [facility] ([facility]) [address] [place] [address] Sodium [Moles/Vol] 136 mmol/L Normal 136-145 [facility] Comment on above: Performed By: #### L [id number] #### [facility] ([facility]) [address] [place] [address] Urea nitrogen [Mass/Vol] 27 mg/dL High 7-25 [facility] Comment on above: Performed By: #### L [id number] #### [facility] ([facility]) [address] [place] [address] UREA NITROGEN/CREATININE (MA SS RATIO) IN SER/PLAS 45.0 Normal [facility] Comment on above: Performed By: #### L [id number] #### [facility] ([facility]) [address] [place] [address] CONSULTon 08-01-2023 CONSULT Attestation signed by Db Hicks MD at 08/02/2023 4:24 PM By using the attestations below, the signing clinician agrees that I have read and verify that the documentation has been personally reviewed by me and ensure that the documentation accurately reflects the encounter. GC: I personally saw this patient on the day of the encounter, performed the askew portion(s) of the service and participated in the management and confirm the resident's documentation. Please note there may be an additional personal documentation from me. High likelihood, this is from a pulmonary issue. LVEF normal and evidence of elevated RVSP. Plan on RHC tomorrow. Cardiology Consult Note Reason for Consult: SOB HPI: Daniel Lynn is a 47 y.o. female with PMH of Asthma, who presented intimally to [facility] on 07/25 due to SOB that started on Sunday 07/22 after her son was sick, She was found to have Rhino virus but she was hypoxemic in the 70s, required BIPAP and moved to ICU, CTA on 07/27 showed no evedince of PE, RV hypertrophy with reflux of contrast into IVC and hepatic veins. Also showed patchy groundglass opacities with possible pneumonia. Echo was done and showed revealed preserved ejection fraction, with diastolic heart failure and severely dilated right atrium and ventricles, with RVSP of 99 mmHg. Patient is being diuresed with no significant improvement on symptoms, repeat ECHO showed the same findings but RVSP was down to 76 mmHg. She was transferred to [facility] for Right heart Catheterization. She reports being Short of breath for the last 6 month, with dyspnea and orthopnea. She denies any exertional Chest pain, Palpitation or dizziness. Cardiology ROS: GENERAL: Denies fever, chills, night sweats, weight loss. RESPIRATORY: + for wheezing GI: Denies abdominal pain, nausea/vomiting. PSYCH: Denies anxiety. Past Medical History She has no past medical history on file. Surgical History She has no past surgical history on file. Social History She reports that she has been smoking cigarettes. She does not have any smokeless tobacco history on file. No history on file for alcohol use and drug use. Family History No family history on file. Allergies Bactrim [sulfamethoxazole-trimethoprim], Lisinopril, and Penicillins Medications Medications Prior to Admission Medication Sig Dispense Refill Last Dose albuterol 90 mcg/actuation inhaler Inhale 2 puffs every 6 (six) hours if needed for wheezing or shortness of breath. hydroCHLOROthiazide (HYDRODiuril) 25 mg tablet Take 25 mg by mouth in the morning. verapamil SR (Calan-SR) 240 mg ER tablet Take 240 mg by mouth at bedtime. Do not crush or chew. Last Recorded Vitals Patient Vitals for the past 24 hrs: BP Temp Temp src Pulse Resp SpO2 Height Weight 08/01/23 1115 -- -- -- -- -- 94 % -- -- 08/01/23 1100 122/82 36.2 ???C (97.2 ???F) -- 87 (!) 39 94 % -- -- 08/01/23 1000 123/79 36.5 ???C (97.7 ???F) -- 86 17 94 % -- -- 08/01/23 0900 124/82 36.5 ???C (97.7 ???F) -- 85 22 94 % -- -- 08/01/23 0824 -- -- -- -- -- 94 % -- -- 08/01/23 0804 -- -- -- 78 20 94 % -- -- 08/01/23 0800 123/82 36.4 ???C (97.5 ???F) -- 77 18 94 % -- -- 08/01/23 0600 116/80 36.3 ???C (97.3 ???F) -- 71 18 91 % -- -- 08/01/23 0500 118/74 36.3 ???C (97.3 ???F) -- 71 17 91 % -- -- 08/01/23 0400 131/84 36.2 ???C (97.2 ???F) -- 77 20 (!) 88 % -- -- 08/01/23 0239 -- -- Axillary -- -- -- -- -- 08/01/23 0215 -- -- -- -- -- -- 1.575 m (5' 2.01 ) 127 kg (280 lb 3.3 oz) 08/01/23 0200 (!) 133/95 35.9 ???C (96.6 ???F) -- 86 17 92 % -- -- Physical Examination: GENERAL: AOx3, in no acute distress. Obese HEAD: Atraumatic, normocephalic. NECK: JVD was not appreciated. CARDIAC: RRR. No murmur, or gallops. RESPIRATORY: Bilateral wheezing on exam ABDOMEN: Soft, nontender, nondistended. EXTREMITIES: +1 lower extremity edema, peripheral pulses are 2+ bilaterally. NEURO: No focal deficits Relevant Lab Results @LABRESULTS@ No results found for this or any previous visit (from the past 4464 hour(s)). Lab Results Component Value Date TROPONINI 0.02 08/01/2023 No echocardiogram results found for the past 12 months No nuclear medicine results found for the past 12 months Relevant Imaging Results XR chest 1 view Narrative: XR CHEST 1 VIEW 08/01/2023 2:36 AM CLINICAL INDICATIONS: Shortness of breath COMPARISON: 07/25/2023 FINDINGS: Shortness of breath. Cardiac silhouette is mildly enlarged. Bilateral hilar congestion lungs and costophrenic recesses are clear. Trachea is in the midline. Bony skeleton appears intact. Impression: Mild congestive heart failure. No chapis pulmonary edema or pneumothorax. Electronically signed: Nir Ibarra. Assessment: Acute hypoxic respiratory failure, likely d (more content not included)... Normal [facility] EXTRACTABLE NUCLEAR ANTIGEN ANTIBODIESon 08-01-2023 ANTI SM AB Negative Normal [facility] Comment on above: Performed By: #### L [id number] #### [facility] ([facility]) [address] [place] [address] ANTI SM/ANTIRNP AB Negative Normal [facility] Comment on above: Performed By: #### L [id number] #### [facility] ([facility]) [address] [place] [address] GRAM STAINon 08-01-2023 GRAM STAIN RESULT Normal [facility] Comment on above: Result Comment: Spec imen contains >25 Epithelial Cells/LPF, unsuitable for culture. Please submit a new specimen >25 Squamous Epithelial Cells Per Low Power Field >25 Polys Per Low Power Field Many Gram positive cocci in pairs Many Gram positive bacilli Performed By: #### L [id number] #### [facility] ([facility]) [address] [place] [address] HPon 08-01-2023 HP Attestation signed by Db Hicks MD at 08/02/2023 4:24 PM By using the attestations below, the signing clinician agrees that I have read and verify that the documentation has been personally reviewed by me and ensure that the documentation accurately reflects the encounter. GC: I personally saw this patient on the day of the encounter, performed the askew portion(s) of the service and participated in the management and confirm the resident's documentation. Please note there may be an additional personal documentation from me. High likelihood, this is from a pulmonary issue. LVEF normal and evidence of elevated RVSP. Plan on RHC tomorrow. Cardiology Consult Note Reason for Consult: SOB HPI: Daniel Lynn is a 47 y.o. female with PMH of Asthma, who presented intimally to [facility] on 07/25 due to SOB that started on Sunday 07/22 after her son was sick, She was found to have Rhino virus but she was hypoxemic in the 70s, required BIPAP and moved to ICU, CTA on 07/27 showed no evedince of PE, RV hypertrophy with reflux of contrast into IVC and hepatic veins. Also showed patchy groundglass opacities with possible pneumonia. Echo was done and showed revealed preserved ejection fraction, with diastolic heart failure and severely dilated right atrium and ventricles, with RVSP of 99 mmHg. Patient is being diuresed with no significant improvement on symptoms, repeat ECHO showed the same findings but RVSP was down to 76 mmHg. She was transferred to [facility] for Right heart Catheterization. She reports being Short of breath for the last 6 month, with dyspnea and orthopnea. She denies any exertional Chest pain, Palpitation or dizziness. Cardiology ROS: GENERAL: Denies fever, chills, night sweats, weight loss. RESPIRATORY: + for wheezing GI: Denies abdominal pain, nausea/vomiting. PSYCH: Denies anxiety. Past Medical History She has no past medical history on file. Surgical History She has no past surgical history on file. Social History She reports that she has been smoking cigarettes. She does not have any smokeless tobacco history on file. No history on file for alcohol use and drug use. Family History No family history on file. Allergies Bactrim [sulfamethoxazole-trimethoprim], Lisinopril, and Penicillins Medications Medications Prior to Admission Medication Sig Dispense Refill Last Dose albuterol 90 mcg/actuation inhaler Inhale 2 puffs every 6 (six) hours if needed for wheezing or shortness of breath. hydroCHLOROthiazide (HYDRODiuril) 25 mg tablet Take 25 mg by mouth in the morning. verapamil SR (Calan-SR) 240 mg ER tablet Take 240 mg by mouth at bedtime. Do not crush or chew. Last Recorded Vitals Patient Vitals for the past 24 hrs: BP Temp Temp src Pulse Resp SpO2 Height Weight 08/01/23 1115 -- -- -- -- -- 94 % -- -- 08/01/23 1100 122/82 36.2 ???C (97.2 ???F) -- 87 (!) 39 94 % -- -- 08/01/23 1000 123/79 36.5 ???C (97.7 ???F) -- 86 17 94 % -- -- 08/01/23 0900 124/82 36.5 ???C (97.7 ???F) -- 85 22 94 % -- -- 08/01/23 0824 -- -- -- -- -- 94 % -- -- 08/01/23 0804 -- -- -- 78 20 94 % -- -- 08/01/23 0800 123/82 36.4 ???C (97.5 ???F) -- 77 18 94 % -- -- 08/01/23 0600 116/80 36.3 ???C (97.3 ???F) -- 71 18 91 % -- -- 08/01/23 0500 118/74 36.3 ???C (97.3 ???F) -- 71 17 91 % -- -- 08/01/23 0400 131/84 36.2 ???C (97.2 ???F) -- 77 20 (!) 88 % -- -- 08/01/23 0239 -- -- Axillary -- -- -- -- -- 08/01/23 0215 -- -- -- -- -- -- 1.575 m (5' 2.01 ) 127 kg (280 lb 3.3 oz) 08/01/23 0200 (!) 133/95 35.9 ???C (96.6 ???F) -- 86 17 92 % -- -- Physical Examination: GENERAL: AOx3, in no acute distress. Obese HEAD: Atraumatic, normocephalic. NECK: JVD was not appreciated. CARDIAC: RRR. No murmur, or gallops. RESPIRATORY: Bilateral wheezing on exam ABDOMEN: Soft, nontender, nondistended. EXTREMITIES: +1 lower extremity edema, peripheral pulses are 2+ bilaterally. NEURO: No focal deficits Relevant Lab Results @LABRESULTS@ No results found for this or any previous visit (from the past 4464 hour(s)). Lab Results Component Value Date TROPONINI 0.02 08/01/2023 No echocardiogram results found for the past 12 months No nuclear medicine results found for the past 12 months Relevant Imaging Results XR chest 1 view Narrative: XR CHEST 1 VIEW 08/01/2023 2:36 AM CLINICAL INDICATIONS: Shortness of breath COMPARISON: 07/25/2023 FINDINGS: Shortness of breath. Cardiac silhouette is mildly enlarged. Bilateral hilar congestion lungs and costophrenic recesses are clear. Trachea is in the midline. Bony skeleton appears intact. Impression: Mild congestive heart failure. No chapis pulmonary edema or pneumothorax. Electronically signed: Nir Ibarra. Assessment: Acute hypoxic respiratory failure, likely d (more content not included)... Normal [facility] HP Attestation signed by Lissette Delgado MD at 08/01/2023 4:18 PM I personally saw and examined the patient on the same date of service as resident/fellow . I discussed the findings and therapeutic plan with the resident/fellow . I agree with the documentation, except for any edits/updates below. Teaching Physician's Revisions: Patient with AHRF with viral PNA and Pul HTN. Noted high RSVP on Echo. Plan for RHC for further evaluation. Continue diuretics. Adult ICU History & Physical Patient - Daniel Lynn Age - 47 y.o. - 1975 [facility] # - [id number] Date of Admission - 08/01/2023 1:47 AM Chief Complaint Initial presentation to [facility] with worsening shortness of breath, transferred to [facility] for right heart cath History of Present Illness 47-year-old female who presented to [facility] on 07/25 with 4 days of worsening shortness of breath and chest tightness, in the ER patient was satting 80s on room air, chest x-ray suggested bibasilar infiltrates, viral panel was +ve for Rhino virus, she was admitted for pneumonia, oxygen requirement and work of breathing had declined during her hospital stay, hence was transitioned to BiPAP and moved to the ICU. Patient has a long history of asthma, diagnosed at age of 14, no PFT in the system. ECHO revealed preserved ejection fraction, with diastolic heart failure and severely dilated right atrium and ventricles, with RVSP of 99 mmHg. Patient is being diuresed with no significant improvement on symptoms, repeat ECHO showed the same findings but RVSP was down to 76 mmHg. Cardiology has been following the patient's, who recommended transfer to [facility] for right heart cath. At [facility] Medication at [facility]: Tylenol, DuoNebs, Xanax, Lovenox for DVT prophylaxis, Lasix 40 twice daily, insulin, Solu-Medrol 40 every 8 hours, Verapamil 240 mg, azithromycin, ceftriaxone, lisinopril 10 mg. Viral panel positive for entero-/rhino, Influenza A/B negative Echo on 07/31 showed global left ventricle systolic function, ejection fraction 60 to 65%. D-shaped septum consistent with right ventricular pressure and /or volume overloaded right atrium and ventricle were severely dilated with severely reduced systolic function, grade 2 moderate diastolic dysfunction. Moderate tricuspid regurg, RVSP 76 mmHg. Echo on 07/27 showed same above findings with RVSP 99 mmHg CTA chest on 07/27 revealed no evidence of PE, right ventricular hypertrophy with reflux of contrast into the IVC and hepatic veins, enlarged main pulmonary artery measuring 4.5 cm., Bilateral right greater than left patchy groundglass opacities likely presenting multifocal pneumonia including COVID-pneumonia. Upon arrival to the ICU, patient was on BiPAP setting of 18/8, 55% FiO2, blood pressure stable, heart rate 90s. Patient reported that they had her on highflow during the day and NIV at bedtime. Reporting chronic worsening SOB, with orthopnea, no cp, fever or other related symptoms. She is only on albuterol for asthma, and takes hydrochlorothiazide and Verapamil for HTN. PMH: Patient has no past medical history on file. PSH: Patient has no past surgical history on file. SH: Patient Alc/Tobacco/Drug: Patient has no history on file for alcohol use. has no history on file for tobacco use. has no history on file for drug use. Medications: Patient Current Facility-Administered Medications: Insert peripheral IV, , , Once AND Saline lock IV, , , Once AND sodium chloride flush 10 mL, 10 mL, intravenous, q8h PRN, Diomedes Samayoa MD Allergies: Patient Patient has no allergy information on record. Family history: Patient family history is not on file. ROS, Vitals and Physical Exam Ht Readings from Last 1 Encounters: No data found for Ht Wt Readings from Last 1 Encounters: No data found for Wt vitals were not taken for this visit. No intake or output data in the 24 hours ending 08/01/23 0153 Review of Systems All other systems reviewed and are negative. General: Obese, alert and oriented x3, on Bipap machine HEENT: Atraumatic, normocephalic, PERRLA Neck: Supple neck. Respiratory: Decrease breath sounds bilaterally Heart: Regular rhythm, no murmur, no rub. Neurology: Can move all extremities, no focal deficit. Abdomen: Soft, distended, not tender Extremities: Bilateral leg edema Skin: Warm and dry. Labs/Imaging Hematology: No lab exists for component: PCAL1, LACTICACID, ESR Chemistry: No lab exists for component: AFIO2, APHT, APCOT, APOT, ATCO2, CK, ALB, IBILI Historical Values: (Includes values prior to this admission) No results found for: PREALBUMIN, TSH, T3FREE, FREET4, CORTISOL, FEV1, [id number], DLCO, RVSP, HDL, LDL No results found for: [id number], IRON, (more content not included)... Normal [facility] MAGNESIUMon 08-01-2023 Magnesium [Mass/Vol] 1.9 mg/dL Normal 1.9-2.7 [facility] Comment on above: Performed By: #### L [id number] ####[facility] ([facility])[address] [place] [address] MPO/PR3 REFLEX TO ANCAon MYELOPEROXIDASE (MPO) AB, IGG 0 AU/mL Normal 0-19 [facility] Comment on above: Result Comment: INTE RPRETIVE INFORMATION: Myeloperoxidase Abs, IgG 19 AU/mL or Less ......... Negative 20-25 AU/mL .............. Equivocal 26 AU/mL or Greater ...... Positive Approximately 90% of patients with a P-ANCA pattern by IFA have antibodies specific for MPO. Performed By: #### L [id number] #### [facility] ([facility]) [address] [place] [address] SERINE PROTEINASE 3 (PR3) AB, IGG 1 AU/mL Normal 0- 19 [facility] Comment on above: Result Comment: Myeloperoxidase (MPO) Antibodies , IgG and Serine Proteinase 3 (PR3), IgG are both negative; therefore, ANCA IFA testing will not be performed. INTERPRETIVE INFORMATION: Serine Proteinase 3, IgG 19 AU/mL or Less ........ Negative 20-25 AU/mL ............. Equivocal 26 AU/mL or Greater ..... Positive Approximately 85% of patients with a C-ANCA pattern by IFA have antibodies specific for PR3. Performed By: [employer] [address] [place] [id number] Barrel Builder: Saturnino Rai MD, PhD CLIA Number: [id number] Performed By: #### L [id number] #### [facility] ([facility]) [address] [place] [address] PHOSPHORUSon 08-01-2023 Magnesium [Mass/Vol] 3.8 mg/dL Normal 2.5-5.0 [facility] Comment on above: Performed By: #### L [id number] #### [facility] ([facility]) [address] [place] [address] POCT GLUCOSE METER UNSOLICIT ED RESULTSon 08-01-2023 Glucose [Mass/Vol] 310 mg/dL High 70-105 [facility] Comment on above: Order Comment: Waive d Testing in the ED is performed under the ED CLIA certificate #[id number]. Result Comment: [email or web address] tz Performed By: #### L [id number] #### [facility] ([facility]) [address] [place] [address] Glucose [Mass/Vol] 233 mg/dL High 70-105 [facility] Comment on above: Order Comment: Waive d Testing in the ED is performed under the ED CLIA certificate #[id number]. Result Comment: [email or web address] Performed By: #### L [id number] #### [facility] ([facility]) [address] [place] [address] PROCALCITONIN TESTon 023 PROCALCITONIN IN BLOOD 0.03 ng/mL Normal 0.00-0.10 [facility] Comment on above: Result Comment: Suspected Lower Respirat ory Tract Infection: 0.1-0.25 ng/mL - Low likelihood for bacterial infection;Antibiotics discouraged.* >0.25 ng/mL - Increased likelihood bacterial infection;Antibiotics encouraged. Suspected Sepsis: Strongly consider initiating antibiotics in all unstable patients. 0.1-0.5 ng/mL - Low likelihood for sepsis; Antibiotics discouraged.* >0.5 ng/mL - Increased likelihood sepsis; Antibiotics encouraged. >2.0 ng/mL - High risk of sepsis/septic shock; Antibiotics strongly encouraged. *Recommend retesting PCT within 6-12 hours if clinically indicated and initial PCT<0.5ng/mL Performed By: #### L [id number] #### [facility] ([facility]) [address] [place] [address] PROTIME-INRon 08-01-2023 INR IN PPP BY COAGULATION ASSAY 1.10 Normal 0.90 -1.10 [facility] Comment on above: Result Comment: ACCCP RECOMMENDED INR FO R WARFARIN THERAPY CONDITION INR PROPHYLAXIS OF VENOUS THROMBOSIS 2-3 (HIGH-RISK SURGERY) TREATMENT OF VENOUS THROMBOSIS 2-3 TREATMENT OF PULMONARY EMBOLISM 2-3 PREVENTION OF SYSTEMIC EMBOLISM: 2-3 ACUTE MYOCARDIAL INFARCTION TISSUE HEART VALVES VALVULAR HEART DISEASE ATRIAL FIBRILLATION RECURRENT SYSTEMIC EMBOLISM MECHANICAL HEART VALVE 2.5-3.5 FROM: ORAL ANTICOAGULANTS. MECHANISM OF ACTION, CLINICAL EFFECTIVENESS, AND OPTIMAL THERAPEUTIC RANGE. CHEST 1995;108:231S-246S. Performed By: #### L [id number] #### [facility] ([facility]) [address] [place] [address] PROTHROMBIN TIME (PT) IN PPP BY COAGULATION ASSAY 14.3 Seconds Normal 12.3-14.8 [facility] Comment on above: Performed By: #### L [id number] #### [facility] ([facility]) [address] [place] [address] TROPONIN Ion 08-01-2023 Troponin I.cardiac [Mass/Vol] 0.02 ng/mL Normal 0.00-0 .04 [facility] Comment on above: Performed By: #### L [id number] #### [facility] ([facility]) [address] [place] [address] [id number] 04-18-2020 SARS-CoV-2 Not Detected Normal Not Detected [facility] Comment on above: Result Comment: (NOT E) This test was developed and its performance characteristics determined by [employer]. This test has not been FDA cleared or approved. This test has been authorized by FDA under an Emergency Use Authorization (EUA). This test is only authorized for the duration of time the declaration that circumstances exist justifying the authorization of the emergency use of in vitro diagnostic tests for detection of SARS-CoV-2 virus and/or diagnosis of COVID-19 infection under section 564(b)(1) of the Act, 21 U.S.C. 360bbb-3(b)(1), unless the authorization is terminated or revoked sooner. When diagnostic testing is negative, the possibility of a false negative result should be considered in the context of a patient's recent exposures and the presence of clinical signs and symptoms consistent with COVID-19. An individual without symptoms of COVID-19 and who is not shedding SARS-CoV-2 virus would expect to have a negative (not detected) result in this assay. Performed At: [facility] [address] [facility], [place] [id number] Felisha Martinez MD Ph:[phone] Performed By: #### A COV #### [facility] [address] [place] [address] Fundraising Assistant: Lonnie Lozano MD Encounters Encounter Date Encounter Type Care Provider Facility Start: 08-29-2023 End: 08-30-2023 ambulatory [facility] Start: 08-28-2023 End: 08-28-2023 ambulatory [facility] Start: 08-08-2023 Evaluation and management of inpatient CARLEY GOODRICH [facility] Start: 08-07-2023 Evaluation and management of inpatient VENTURA ARAUJO [facility] Start: 08-07-2023 Evaluation and management of inpatient DB HICKS [facility] Start: 08-02-2023 Evaluation and management of inpatient LISSETTE DELGADO [facility] Start: 08-02-2023 ambulatory LISSETTE DELGADO [facility] Start: 08-02-2023 Evaluation and management of inpatient LISSETTE DELGADO [facility] Start: 08-02-2023 Evaluation and management of inpatient MCLAUGHLIN ANA DELGADO [facility] Start: 08-01-2023 End: 08-09-2023 Evaluation and management of inpatient OLMAN MARISCAL [facility] Start: 04-15-2020 End: 04-16-2020 Patient encounter procedure [facility] Start: 04-15-2020 End: 04-15-2020 Subsequent hospital visit by physician [facility] Covid Screening Schedule [facility] Covid Screening Comment on above: Arrived Procedures Date Procedure Procedure Detail Performing Clinician Start: 04-15-2020 COVID-19 AMBULATORY [facility] Plan of Treatment Date Care Activity Detail Author Start: 05-18-2020 Influenza vaccination Flu vaccine (# 1) [place], [place] Start: 2015 Lipid panel Lipid screen [place], [place] Start: 1996 Screening for malign ant neoplasm of cervix Cervical cancer screen [place], [place] Start: 1994 DTaP/Tdap/Td vaccine (1 - Tdap) DTaP/Tdap/Td vaccine (1 - Tdap) [place], [place] Start: 1990 HIV screening HIV screen [place], [place] End: 04-15-2020 Covid-19 Ambulatory Covid-19 Ambulatory Lab Routine Once for 1 Occurrences starting 04/15/2020 until 04/15/2020 [place] Comment on above: Once for 1 Occurrenc es starting 04/15/2020 until 04/15/2020 Covid-19 Ambulatory Covid-19 Amb ulatory Lab Routine 04/15/2020 6:59 AM EDT [place] Payers Date Payer Category Payer Private Health Insurance [id number] 2014 Unknown [id number] 2014 Unknown [employer] [address] [id number] 2014-Present [phone] [address] [place] [address] [id number] 1975 Unknown [id number] Social History Date Type Detail Facility Tobacco smoking status NHIS Unknown if ev er smoked [place], [place] Sex Assigned At Not on file [place] Clinical Notes 08-02-2023 to 08-28-2023 Note Date & Type Note Facility 08-28-2023 Note [place] [facility] Subjective Daniel Lynn is a 47 y.o. year old female patient being seen for follow up [facility]. Says her insurance will only pay for half tablet daily of sildenafil. Patient Active Problem List Diagnosis Dyspnea on exertion MTHFR (methylene THF reductase) deficiency and homocystinuria (CMS/HCC) Type 2 diabetes mellitus (CMS/HCC) Smoker, current status unknown Pulmonary hypertension (CMS/HCC) ASD (atrial septal defect) Obesity due to excess calories Primary hypertension No family history on file. Social History Tobacco Use Smoking status: Some Days Types: Cigarettes SAMARIA Najera is seen in follow-up. She is a 47-year-old woman whom I met recently when she was admitted on 08/01/2023 with acute respiratory failure and hypoxia. Investigation revealed evidence of ostium secundum ASD with significant ossp-nk-qatco shunting across it, severe pulmonary hypertension and severely enlarged right-sided chambers with right ventricular dysfunction. She underwent full investigation including CT chest, CT angiogram of the heart, MRI of the heart, right heart and left heart catheterization and balloon occlusion of the ASD during the cardiac catheterization. In fact following balloon occlusion of the ASD her peripheral saturation improved to near normal levels. She was discovered to have possible right to left shunting to the left upper pulmonary vein given that the saturation in the left upper pulmonary vein was reduced. However CT scan of the chest could not determine the presence of any significant pulmonary AV malformation or other source of [id number] shunting. She was started on therapy with the sildenafil 10 mg p.o. 3 times daily. She was also given prescription for macitentan which she still has not required yet. Following that hospitalization and management she has done significantly better and is currently using oxygen only at night. She does report significant shortness of breath on exertion NYHA class III symptoms as well as desaturation at rest and worsening with exertion down to 84%. Previously she would drop saturation to the 70's with exertion. Review of Systems Cardiovascular: Positive for dyspnea on exertion and leg swelling (L > R). All other systems reviewed and are negative. Objective Visit Vitals BP 134/82 (BP Location: Left wrist, Patient Position: Sitting) Pulse 86 Ht 1.575 m (5' 2 ) Wt 122 kg (269 lb) SpO2 90% BMI 49.20 kg/m??? Smoking Status Some Days BSA 2.31 m??? Physical Exam Constitutional: Appearance: She is well-developed. She is obese. She is not ill-appearing. HENT: Head: Normocephalic and atraumatic. Nose: Nose normal. Eyes: General: No scleral icterus. Pupils: Pupils are equal, round, and reactive to light. Neck: Thyroid: No thyromegaly. Vascular: No JVD. Cardiovascular: Rate and Rhythm: Normal rate and regular rhythm. Pulses: Radial pulses are 2+ on the right side and 2+ on the left side. Heart sounds: Murmur heard. Systolic (LUSB) murmur is present with a grade of 3/6. No friction rub. No gallop. Comments: Splitting of 2nd heart sound Pulmonary: Effort: Pulmonary effort is normal. No respiratory distress. Breath sounds: Normal breath sounds. No wheezing or rales. Chest: Chest wall: No tenderness. Abdominal: General: Bowel sounds are normal. There is no distension. Palpations: Abdomen is soft. Tenderness: There is no abdominal tenderness. Musculoskeletal: General: No swelling. Cervical back: Neck supple. Right lower le+ Pitting Edema present. Left lower le+ Pitting Edema present. Skin: General: Skin is warm and dry. Neurological: General: No focal deficit present. Mental Status: She is alert and oriented to person, place, and time. Psychiatric: Mood and Affect: Mood normal. Behavior: Behavior is cooperative. Judgment: Judgment normal. Allergies Allergies Allergen Reactions Bactrim [Sulfamethoxazole-Trimethoprim] Dizziness Lisinopril Cough Penicillins Rash Noted at childhood Medications Current Outpatient Medications: albuterol 90 mcg/actuation inhaler, Inhale 2 puffs every 6 (six) hours if needed for wheezing or shortness of breath., Disp: , Rfl: furosemide (Lasix) 40 mg tablet, Take 1 tablet (40 mg) by mouth in the morning., Disp: 30 tablet, Rfl: 0 insulin detemir (Levemir) 100 unit/mL (3 mL) injection pen, Inject 20 Units under the skin at bedtime., Disp: 6 mL, Rfl: 0 macitentan 10 mg tablet, Take 10 mg by mouth in the morning. (Patient not taking: Reported on 08/28/2023), Disp: 30 tablet, Rfl: 11 sildenafil (Revatio) 20 mg tablet, Take 1 tablet (20 mg) by mouth in the morning, at noon, and at bedtime., Disp: 270 tablet, Rfl: 3 Recent Labs Lab Results Component Value Date NA 135 (L) 08/09/2023 K 3.7 08/09/2023 CL 100 08/09/2023 CO2 30 08/09/2023 BUN 17 08/09/2023 CREATININE 0.42 (L) 08/09/2023 (more content not included)... [facility] 08-09-2023 Note Called the [facility] for home [phone] and faxed script /f2f [phone] They are able to set up home . Patient given tank and advised to call [facility] once home( in route) Received fax, on phone with rep at [facility]. Received confirmation they have order and will set up for patient, [facility] 08-09-2023 Note Met with Patient bed side to provide listing of HHC agencies in her area; Patient declines listing of HHC providers and declines HHC services being arranged- stating she 'has been diabetic since [one of her pregnancies]' and knows how to manage her diabetes care, stating she has glucometer in her home and 'blood sugars are all over because of the steriods she is on at hospital'. No [facility] referrals sent as Pt declines HHC arrangements. Medical team notified of Pt decision [facility] 08-09-2023 Note Hospital Medicine Discharge Summary Final Discharge Diagnosis: Acute hypoxic respiratory failure, likely due to Pulmonary Hypertension Large secundum ASD with bidirectional flow. The largest septal defect measured 3.5 cm, confirmed by Cardiac MRI & MATT New onset DM-II Admission Diagnosis: Dyspnea on exertion [R06.09] Hospital course: 47-year-old female who presented to [facility] on 07/25 with 4 days of worsening shortness of breath and chest tightness, in the ER patient was satting 80s on room air, chest x-ray suggested bibasilar infiltrates, viral panel was +ve for Rhino virus, she was admitted for pneumonia, oxygen requirement and work of breathing had declined during her hospital stay, hence was transitioned to BiPAP and moved to the ICU. Patient has a long history of asthma, diagnosed at age of 14, no PFT in the system. ECHO revealed preserved ejection fraction, with diastolic heart failure and severely dilated right atrium and ventricles, with RVSP of 99 mmHg. Patient is being diuresed with no significant improvement on symptoms, repeat ECHO showed the same findings but RVSP was down to 76 mmHg. Cardiology has been following the patient's, who recommended transfer to [facility] for right heart cath. At [facility] Medication at [facility]: Tylenol, DuoNebs, Xanax, Lovenox for DVT prophylaxis, Lasix 40 twice daily, insulin, Solu-Medrol 40 every 8 hours, Verapamil 240 mg, azithromycin, ceftriaxone, lisinopril 10 mg. Viral panel positive for entero-/rhino, Influenza A/B negative Echo on 07/31 showed global left ventricle systolic function, ejection fraction 60 to 65%. D-shaped septum consistent with right ventricular pressure and /or volume overloaded right atrium and ventricle were severely dilated with severely reduced systolic function, grade 2 moderate diastolic dysfunction. Moderate tricuspid regurg, RVSP 76 mmHg. Echo on 07/27 showed same above findings with RVSP 99 mmHg CTA chest on 07/27 revealed no evidence of PE, right ventricular hypertrophy with reflux of contrast into the IVC and hepatic veins, enlarged main pulmonary artery measuring 4.5 cm., Bilateral right greater than left patchy groundglass opacities likely presenting multifocal pneumonia including COVID-pneumonia. Patient was transferred to medical ICU [facility] for hypoxic respiratory failure likely due to pulmonary hypertension. Patient was started on diuretics Lasix IVP twice daily. Who was placed on BiPAP with alternating with high flow nasal cannula. Cardiology was consulted. Repeated echo showed RVSP of 79 with very large right ventricle and right atrium. CT chest obtained which showed collapse of right middle lobe and small infiltration in the left lower lobe. Patient was started on broad-spectrum antibiotic vancomycin and cefepime. Sputum culture remains negative. Blood culture remains negative. Patient remains afebrile. VQ scan obtained which was unremarkable. Connective tissue disease work-up were sent. Cardiology consulted, right sided heart cath done on 08/02. Which showed as below. CT heart structure ordered. Patient was started on sildenafil Hemodynamic Data: RA: 11 RV: 83/9, 14 PA: 79/31 (48) PCWP: 12 O2 Sat: SVC sat: 70%, IVC sat: 73%, HRA sat: 75%, MRA sat: 81%, LRA sat: 82%, RV sat: 79%, LPA sat: 82%, RPA sat: 82%, AO sat: 90% Qp: 12.94, Qpi: 5.97, Qs: 6.13, Qsi: 2.83; Qp/Qs: 2.11 BP: 125/80 (96) TP PVR: 2.8 Wood units 08/08-08/09 Patient on 3 L NC and would like to go home. Patient to have home O2 eval and new meds were sent to her pharmacy. Case also discussed with cardiology Dear Dr. Jack MD, Daniel is advised to follow up with you within 1-2 weeks. Follow-up with: Cardiology Scheduled appointments: Future Appointments Date Time Provider Department Center 08/28/2023 2:15 PM Chris Roger MD [facility] Your medication list START taking these medications Instructions Last Dose Given Next Dose Due furosemide 40 mg tablet Commonly known as: Lasix Take 1 tablet (40 mg) by mouth in the morning. insulin detemir 100 unit/mL (3 mL) injection pen Commonly known as: Levemir Inject 20 Units under the skin at bedtime. macitentan 10 mg tablet Take 10 mg by mouth in the morning. sildenafil 20 mg tablet Commonly known as: Revatio Take 0.5 tablets (10 mg) by mouth in the morning, at noon, and at bedtime for 275 doses. CONTINUE taking these medications Instructions Last Dose Given Next Dose Due albuterol 90 mcg/actuation inhaler STOP taking these medications hydroCHLOROthiazide 25 mg tablet Commonly known as: HYDRODiuril verapamil SR 240 mg ER tablet Commonly known as: Calan-SR Where to Get Your Medications These medications were sent to [facility]/pharmacy #[id number] - [place], [place] - [address] [address] furosemide 40 mg tablet insulin detemir (more content not included)... [facility] 08-09-2023 Note ------ Attestation signed by Kvng Kumar MD at 08/09/2023 11:18 PM I reviewed the salient portions of the patient history. Agree with the noted assessment and plan. Kvng Kumar MD [facility] Pulmonary and Critical Care Medicine ------ Pulmonology Progress Patient : Daniel Lynn; 47 y.o. Location: 3104/3104-01 Attending: Carley Goodrich MD Admit Date: 08/01/2023 Hospital Day: 8 Reason for Consult: Acute hypoxic respiratory failure. Subjective: Patient seen and examined at bedside, no acute events, she is feeling better today. On 3 L nasal cannula. Assessment: # Pulmonary HTN, group 1, secondary to ASD. S/p Rt side heart cath, mPAP 40, PVR 1.9, PCWP 16 with evidence of left to Rt shunt. No vasoreactivity. # Acute hypoxic respiratory failure. Improving, # Hx of asthma # ASD with left to Rt shunt Plan: -No objection for discharge from pulmonary perspective. -Will need home oxygen. -Diuretics as per cardiology team. -Will follow-up in the pulmonary clinic for PFT and 6-minute walk test. Pulmonary will sign off please call for any questions. Past History/Allergies?Social History: Past Medical History: Diagnosis Date Asthma COPD (chronic obstructive pulmonary disease) ([facility]) Diabetes mellitus ([facility]) Hypertension MTHFR gene mutation Obesity Allergies Allergen Reactions Bactrim [Sulfamethoxazole-Trimethoprim] Dizziness Lisinopril Cough Penicillins Rash Noted at childhood Social History Socioeconomic History Marital status: Spouse name: Not on file Number of children: Not on file Years of education: Not on file Highest education level: Not on file Occupational History Not on file Tobacco Use Smoking status: Some Days Types: Cigarettes Smokeless tobacco: Not on file Substance and Sexual Activity Alcohol use: Not on file Drug use: Not on file Sexual activity: Not on file Other Topics Concern Not on file Social History Narrative Not on file Social Determinants of Health Financial Resource Strain: Low Risk (08/01/2023) Overall Financial Resource Strain (CARDIA) Difficulty of Paying Living Expenses: Not very hard Food Insecurity: Unknown (08/01/2023) Hunger Vital Sign Worried About Running Out of Food in the Last Year: Never true Ran Out of Food in the Last Year: Not on file Transportation Needs: Unknown (08/01/2023) PRAPARE - Transportation Lack of Transportation (Medical): No Lack of Transportation (Non-Medical): Not on file Physical Activity: Not on file Stress: Not on file Social Connections: Not on file Intimate Partner Violence: Unknown (08/01/2023) Humiliation, Afraid, Rape, and Kick questionnaire Fear of Current or Ex-Partner: No Emotionally Abused: Not on file Physically Abused: Not on file Sexually Abused: Not on file Housing Stability: Unknown (08/01/2023) Housing Stability Vital Sign Unable to Pay for Housing in the Last Year: Not on file Number of Places Lived in the Last Year: Not on file Unstable Housing in the Last Year: No Family History: No family history on file. Outpatient Medications: Medications Prior to Admission Medication Sig Dispense Refill Last Dose albuterol 90 mcg/actuation inhaler Inhale 2 puffs every 6 (six) hours if needed for wheezing or shortness of breath. hydroCHLOROthiazide (HYDRODiuril) 25 mg tablet Take 25 mg by mouth in the morning. verapamil SR (Calan-SR) 240 mg ER tablet Take 240 mg by mouth at bedtime. Do not crush or chew. Current Medications: Scheduled Meds: furosemide, 40 mg, intravenous, Daily heparin (porcine), 7,500 Units, subcutaneous, BID insulin aspart, 0-20 Units, subcutaneous, TID with meals And insulin aspart, 0-20 Units, subcutaneous, Nightly insulin detemir, 20 Units, subcutaneous, Nightly ipratropium-albuteroL, 3 mL, nebulization, q6h while awake Oxygen Therapy, , inhalation, Continuous pantoprazole, 40 mg, intravenous, Daily before breakfast Or pantoprazole, 40 mg, oral, Daily before breakfast sildenafil, 10 mg, oral, TID Continuous Infusions: PRN Meds: PRN medications: acetaminophen, glucose OR dextrose 50 % in water (D50W), Insert peripheral IV AND Saline lock IV AND sodium chloride Review of Systems: ROS CONSTITUTIONAL: no weight loss, no fever, no chills HEENT: no vision changes, no ear pain, no runny nose, no sore throat RESPIRATORY: no dyspnea, no cough, no wheeze, no sputum production CV: no chest pain, no palpitations, no syncope GI: no abdominal pain, no nausea, no vomiting, no diarrhea. MSK: no myalgia, no joint pain. SKIN: no rash, no pruritus. NEUROLOGICAL: no weakness, no paresthesias PSYCHIATRIC: No mood changes. No anxiety, no depression. Input/Output: I/O last 3 completed shifts: In: 1 (more content not included)... [facility] 08-09-2023 Note 08/09/23 0920 Home Oxygen Therapy Evaluation Pulse Oximetry on room air at Rest 94 Pulse Ox on O2 with nasal cannula while at rest 94 (3 lpm) Pulse Ox on room air while walking 84 Pulse Ox on O2 with nasal cannula while walking 94 (3 lpm) Patient Qualification for home oxygen Qualifies Patient qualifies for home oxygen 3 lpm. [facility] 08-08-2023 Note Hospital Medicine Daily Progress Note - 08/08/2023 1:15 PM; Room: [address] [place] [address] Admission: 08/01/2023 1:47 AM; Length of stay: 7 days THE HOSPITALIST TEAM PREFERS TO USE [employer] FOR COMMUNICATION 7AM-7PM. IF I DO NOT RESPOND WITHIN 15 MINUTES, PLEASE PAGE ME/CALL THROUGH THE [employer] CLERK. FROM 7PM-7AM, PLEASE PAGE [phone](COVR) Code Status: Full Code Barriers to Discharge: Improvement in respiratory status Expected Discharge Date: 08/09-08/10 Discharge Destination: home Overview Patient is seen for evaluation and management of respiratory failure. Subjective Seen today in her room, on 4 L NC Physical Exam GENERAL: AOx3, in no acute distress. Obese HEAD: Atraumatic, normocephalic. EYES: MEMO, EOMI. NECK: No JVD present. CARDIAC: RRR. No murmur, rubs, or gallops. RESPIRATORY: CTAB, no increased effort of breathing. ABDOMEN: Soft, nontender, nondistended. EXTREMITIES: Chronic 1+ lower limb edema Visit Vitals BP 119/88 (BP Location: Right arm, Patient Position: Sitting) Pulse 83 Temp 37 ???C (98.6 ???F) (Temporal) Resp 15 Intake/Output Summary (Last 24 hours) at 08/08/2023 1315 Last data filed at 08/08/2023 1115 Gross per 24 hour Intake 1037.15 ml Output 810 ml Net 227.15 ml Estimated body mass index is 46.06 kg/m??? as calculated from the following: Height as of this encounter: 1.575 m (5' 2.01 ). Weight as of this encounter: 114 kg (251 lb 14.4 oz). Active Inpatient Problems Principal Problem: ASD (atrial septal defect) Active Problems: Dyspnea on exertion MTHFR (methylene THF reductase) deficiency and homocystinuria (CMS/HCC) Smoker, current status unknown Obesity due to excess calories Primary hypertension Type 2 diabetes mellitus (CMS/HCC) Pulmonary hypertension (CMS/HCC) Assessment and Plan Acute hypoxic respiratory failure, likely due to Pulmonary Hypertension Severe Precapillary Pulmonary hypertension, suspect group 1 vs 3 Large secundum ASD with bidirectional flow. The largest septal defect measured 3.5 cm, confirmed by Cardiac MRI & MATT Type 2 Diabetes History of Asthma Possibility of ANSHUL/OHS Tobacco abuse Morbid obesity BMI of 51.7 Continue current therapy with sildenafil Wean O2 as tolerated Macitentan for further treatment of her pulmonary hypertension ? CT scan of the chest with no evidence of pulmonary arteriovenous malformation. Patient had Favorable response to balloon occlusion of the ASD with rise in systemic saturation and absence of increase of left ventricular diastolic pressures with stable pulmonary pressures. Patient will need to follow up with cardiology outpatient to discuss Continue Lasix Patient will need follow up in the pulmonary clinic for PFT and 6MWT. VTE Prophylaxis: Heparin subcutaneous Scheduled Meds furosemide, 40 mg, intravenous, Daily heparin (porcine), 7,500 Units, subcutaneous, BID insulin aspart, 0-20 Units, subcutaneous, TID with meals And insulin aspart, 0-20 Units, subcutaneous, Nightly insulin detemir, 20 Units, subcutaneous, Nightly ipratropium-albuteroL, 3 mL, nebulization, q6h while awake Oxygen Therapy, , inhalation, Continuous pantoprazole, 40 mg, intravenous, Daily before breakfast Or pantoprazole, 40 mg, oral, Daily before breakfast sildenafil, 10 mg, oral, TID Pertinent Investigations Hematology: Results from last 7 days Lab Units 08/08/2345508/07/237 WBC AUTO 10*3/uL 8.55 9.05 HEMOGLOBIN g/dL 15.1* 15.4* HEMATOCRIT % 47.5 47.3 MCV fL 93.3 92.6 PLATELETS AUTO 10*3/uL 190 194 Chemistry: Results from last 7 days Lab Units 08/08/2345508/07/2342608/06/234 SODIUM mmol/L 135* 134* 135* POTASSIUM mmol/L 3.9 3.8 4.1 CHLORIDE mmol/L 102 98 100 CO2 mmol/L 30 31 30 BUN mg/dL 22 25 20 CREATININE mg/dL 0.60 0.59* 0.61 GLUCOSE mg/dL 145* 210* 180* MAGNESIUM mg/dL 1.8* 1.7* 1.8* CALCIUM mg/dL 8.5* 8.5* 8.4* PHOSPHORUS mg/dL 3.4 3.5 3.2 Results from last 7 days Lab Units 08/02/23 0810 HCO3 ART mEq/L 40.8* O2 SAT ART % 97.8 Results from last 7 days Lab Units 08/08/23 1111 08/08/23 0705 08/07/23 2140 08/07/23 1104 08/06/23 2202 08/06/23 1708 POCT GLUCOSE mg/dL 198* 111* 233* 156* 305* 240* Historical Values: (Includes values prior to this admission) Lab Results Component Value Date TSH 0.56 08/03/2023 No results found for: [id number], IRON, TIBC, C3, C4, PHANI, CANCA, ASO, PSA, CEA, CA125, CA199, AFP, CA153 Imaging CTA chest w and/or wo IV contrast Narrative: CTA CHEST HISTORY: Pulmonary AVM COMPARISON: Cardiac CT 08/02/2023, CT chest 08/02/2023 TECHNIQUE: Multidetector CT angiogram through the chest performed following the uncomplicated intravenous administration of 100 mL Omnipaque 350. 3-D maximum intensity projection reconstructions constructed under concurrent physician supervision on a independent workstation. 3-D images obtained to improve visualization of vascular detail. FI (more content not included)... [facility] 08-08-2023 Note Nutrition Screening Assessment: Patient Name: Daniel Lynn : 1975 Date of Assessment: 08/08/23 Nutrition re-screen completed Past Medical History: Diagnosis Date Asthma COPD (chronic obstructive pulmonary disease) ([facility]) Diabetes mellitus ([facility]) Hypertension MTHFR gene mutation Obesity Information obtained from: patient, medical record, and nursing Current Problems: acute respiratory failure. Cardiology following for atrial septal defect. T2DM Current Medications: furosemide, 40 mg, intravenous, Daily heparin (porcine), 7,500 Units, subcutaneous, BID insulin aspart, 0-20 Units, subcutaneous, TID with meals And insulin aspart, 0-20 Units, subcutaneous, Nightly insulin detemir, 20 Units, subcutaneous, Nightly ipratropium-albuteroL, 3 mL, nebulization, q6h while awake Oxygen Therapy, , inhalation, Continuous pantoprazole, 40 mg, intravenous, Daily before breakfast Or pantoprazole, 40 mg, oral, Daily before breakfast sildenafil, 10 mg, oral, TID Dietary Orders (From admission, onward) Start Ordered 08/07/231838 Special Kitchen Request Once Comments: Entree salad, tomato, cucumber, ranch and costa rican dressing, diet coke, quesadilla with grilled chicken and sour cream and salsa 08/07/23183808/07/231836 Regular Diet Heart Healthy/HTN, CABG,Stroke, (2gNA, low fat, low cholesterol) Diet effective now Question Answer Comment Room Service? Yes Fat restriction: Heart Healthy/HTN, CABG,Stroke, (2gNA, low fat, low cholesterol) 08/07/231837 Meal Intakes: 75-100% Body mass index is 46.06 kg/m???. Results from last 7 days Lab Units 08/08/23 1111 08/08/23 0705 08/08/23 0456 08/07/23 2140 08/07/23 1104 08/07/23 0427 08/06/23 0808 08/06/23 0414 POCT GLUCOSE mg/dL 198* 111* -- 233* < > -- < > -- BUN mg/dL -- -- 22 -- -- 25 -- 20 CREATININE mg/dL -- -- 0.60 -- -- 0.59* -- 0.61 SODIUM mmol/L -- -- 135* -- -- 134* -- 135* POTASSIUM mmol/L -- -- 3.9 -- -- 3.8 -- 4.1 MAGNESIUM mg/dL -- -- 1.8* -- -- 1.7* -- 1.8* HEMOGLOBIN g/dL -- -- 15.1* -- -- 15.4* -- 15.7* WBC AUTO 10*3/uL -- -- 8.55 -- -- 9.05 -- 8.36 < > = values in this interval not displayed. Plan: Patient did not meet criteria for nutrition risk. No other nutritional concerns. Continue current diet. RD will continue to reassess per protocol during admission. Consult the dietitian as needed. (Please reach out with questions and contact the dietitian via [employer] chat 8A-4P Sunday-Sunday. Or call the dietitian's office at [email or web address] [phone]. For weekends/holidays, the dietitian's can be reached by paging [phone] from 9A-3P. Unable to be reached via [employer] chat on Sunday & .) [facility] 08-08-2023 Note ------ Attestation signed by Raza Leonard MD at 08/08/2023 12:46 PM I reviewed the salient portions of the patient history. I have seen and examined the patient during rounds with the resident/fellow. I repeated the askew components of the exam. Agree with the noted assessment and plan. Raza Leonard MD [facility] Pulmonary interventional and Critical Care Medicine ------ Pulmonology Progress Patient : Daniel Lynn; 47 y.o. Location: 3104/3104-01 Attending: Carley Goodrich MD Admit Date: 08/01/2023 Hospital Day: 7 Reason for Consult: Acute hypoxic respiratory failure Subjective: Patient seen and examined, no acute events overnight. Feeling better, denies cough or sputum production. On 4 L NC. Assessment: # Pulmonary HTN, group 1, secondary to ASD. S/p Rt side heart cath, mPAP 40, PVR 1.9, PCWP 16 with evidence of left to Rt shunt. No vasoreactivity. # Acute hypoxic respiratory failure. Improving, oxygen requirements going down. # Hx of asthma Plan: - Continue with diuresis as per cardiology team, currently on lasix 40 mg IV daily - Monitor urine output and daily wt - On Sildenafil, may need dual therapy for pulmonary HTN - Follow up in the pulmonary clinic for PFT and 6MWT. - wean oxygen as tolerated. Past History/Allergies?Social History: Past Medical History: Diagnosis Date Asthma COPD (chronic obstructive pulmonary disease) ([facility]) Diabetes mellitus ([facility]) Hypertension MTHFR gene mutation Obesity Allergies Allergen Reactions Bactrim [Sulfamethoxazole-Trimethoprim] Dizziness Lisinopril Cough Penicillins Rash Noted at childhood Social History Socioeconomic History Marital status: Spouse name: Not on file Number of children: Not on file Years of education: Not on file Highest education level: Not on file Occupational History Not on file Tobacco Use Smoking status: Some Days Types: Cigarettes Smokeless tobacco: Not on file Substance and Sexual Activity Alcohol use: Not on file Drug use: Not on file Sexual activity: Not on file Other Topics Concern Not on file Social History Narrative Not on file Social Determinants of Health Financial Resource Strain: Low Risk (08/01/2023) Overall Financial Resource Strain (CARDIA) Difficulty of Paying Living Expenses: Not very hard Food Insecurity: Unknown (08/01/2023) Hunger Vital Sign Worried About Running Out of Food in the Last Year: Never true Ran Out of Food in the Last Year: Not on file Transportation Needs: Unknown (08/01/2023) PRAPARE - Transportation Lack of Transportation (Medical): No Lack of Transportation (Non-Medical): Not on file Physical Activity: Not on file Stress: Not on file Social Connections: Not on file Intimate Partner Violence: Unknown (08/01/2023) Humiliation, Afraid, Rape, and Kick questionnaire Fear of Current or Ex-Partner: No Emotionally Abused: Not on file Physically Abused: Not on file Sexually Abused: Not on file Housing Stability: Unknown (08/01/2023) Housing Stability Vital Sign Unable to Pay for Housing in the Last Year: Not on file Number of Places Lived in the Last Year: Not on file Unstable Housing in the Last Year: No Family History: No family history on file. Outpatient Medications: Medications Prior to Admission Medication Sig Dispense Refill Last Dose albuterol 90 mcg/actuation inhaler Inhale 2 puffs every 6 (six) hours if needed for wheezing or shortness of breath. hydroCHLOROthiazide (HYDRODiuril) 25 mg tablet Take 25 mg by mouth in the morning. verapamil SR (Calan-SR) 240 mg ER tablet Take 240 mg by mouth at bedtime. Do not crush or chew. Current Medications: Scheduled Meds: furosemide, 40 mg, intravenous, Daily heparin (porcine), 7,500 Units, subcutaneous, BID insulin aspart, 0-20 Units, subcutaneous, TID with meals And insulin aspart, 0-20 Units, subcutaneous, Nightly insulin detemir, 20 Units, subcutaneous, Nightly ipratropium-albuteroL, 3 mL, nebulization, q6h while awake Oxygen Therapy, , inhalation, Continuous pantoprazole, 40 mg, intravenous, Daily before breakfast Or pantoprazole, 40 mg, oral, Daily before breakfast prednisoLONE, 40 mg, oral, Daily sildenafil, 10 mg, oral, TID Continuous Infusions: PRN Meds: PRN medications: acetaminophen, glucose OR dextrose 50 % in water (D50W), Insert peripheral IV AND Saline lock IV AND sodium chloride Review of Systems: ROS CONSTITUTIONAL: no weight loss, no fever, no chills HEENT: no vision changes, no ear pain, no runny nose, no sore throat RESPIRATORY: no dyspnea, no cough, no wheeze, no sputum production CV: no chest pain, no palpitations, no syncope GI: no abdominal pain, no nausea, no vomiting, no diarrhea. MSK: no my (more content not included)... [facility] 08-08-2023 Note Occupational Therapy Occupational Therapy Evaluation Patient Name: Daniel Lynn : 1975 Today's Date: 08/08/2023 Time In: 742 Time Out: 754 47 y/o female adm from OSH with pneumonia and for workup for atrial septal defect. [facility] 08/04/23 General Subjective: friendly and cooperative, reports indep in room without issues and no therapy needs Patient Active Problem List Diagnosis Dyspnea on exertion MTHFR (methylene THF reductase) deficiency and homocystinuria (CMS/HCC) Type 2 diabetes mellitus (CMS/HCC) Smoker, current status unknown Pulmonary hypertension (CMS/HCC) ASD (atrial septal defect) Obesity due to excess calories Primary hypertension Past Medical History: Diagnosis Date Asthma COPD (chronic obstructive pulmonary disease) (CMS/HCC) Diabetes mellitus (CMS/HCC) Hypertension MTHFR gene mutation Obesity No past surgical history on file. Precautions Precautions Medical Precautions: oxygen (4LO2) Pain Pain Assessment Pain Assessment: No/denies pain Cognition Cognition Overall Cognitive Status: Within Functional Limits General Assessment General Assessment Hearing: WFl Hand Dominance: Right Home Living Home Living Type of Home: House Lives With: Spouse, Daughter, Son Home Adaptive Equipment: (gb, hhs, pulseoximeter) Home Layout: Two level, Able to live on main level with bedroom/bathroom Home Access: Stairs to enter with rails Entrance Stairs-Rails: Right Entrance Stairs-Number of Steps: (2) Bathroom Shower/Tub: Tub/shower unit Prior Level of Function Prior Function Level of [place]: Independent with ADLs and functional transfers, Independent with homemaking with ambulation (drives , works) Prior IADLs IADL History Homemaking Responsibilities: Yes Dynamic Standing Balance Dynamic Standing Balance Dynamic Standing Balance-Level of Assistance: Independent ADL ADL LE Dressing Assistance: Independent Transfers Transfers Transfer: (in chair upon arrival, indep:: sit to stand , standing four mintues, 50 feet and sit into chair) Objective General Assessments Activity Tolerance Endurance: Stage II Vision - Basic Assessment Current Vision: Wears glasses all the time Sensation Light Touch: No apparent deficits Coordination Movements are Fluid and Coordinated: Yes Extremity Assessments RUE Assessment RUE Assessment: Within Functional Limits Outcome Assessments AM-PAC 6 Clicks Putting on and taking off regular lower body clothing?: None (Independent) Bathing(Including washing,rinsing,drying)?: None (Independent) Toileting, which includes using the toilet,bedpan,or urinal?: None (Independent) Putting on and taking off regular upper body clothing?: None (Independent) Taking care of personal grooming such as brushing teeth?: None (Independent) Eating meals?: None (Independent) Total Score OT [facility]: 24 Assessment/Plan OT Assessment OT Education/Comments: may benefit to use shower chair, brief discussion about ws/ec/pacing with good verbal return Plan OT Plan: No skilled OT Equipment Recommended: (ssc) OT - Discharge Recommendations Placed: Yes OT Goals Multi-Disciplinary Problems (from Occupational Therapy) Active Problems Not on file [facility] 08-08-2023 Note ------ Attestation signed by Isai George MD at 08/08/2023 2:56 PM I personally saw and examined the patient on the same date of service as resident/fellow Neva Portillo. I discussed the findings and therapeutic plan with the resident/fellow Neva Portillo. I agree with the documentation, except for any edits/updates below. Teaching Physician's Revisions: as above ------ Cardiology Progress Note Subjective Subjective: Daniel Lynn is feeling well, tolerated the cath yesterday. Denies any Chest pain, SOB, palpitation or dizziness. Currently on 4 L with significant improvement of O2 requirements. Objective Objective: Patient Vitals for the past 24 hrs: BP Temp Temp src Pulse Resp SpO2 Weight 08/08/23 0500 120/71 36.5 ???C (97.7 ???F) Temporal 69 19 94 % 114 kg (251 lb 14.4 oz) 08/08/23 0243 -- -- -- 73 24 95 % -- 08/08/23 0004 116/64 36.3 ???C (97.4 ???F) Temporal 80 18 90 % -- 08/07/23 2300 120/69 -- -- 84 17 93 % -- 08/07/23 2200 107/63 -- -- 90 18 (!) 89 % -- 08/07/23 2115 137/75 36.5 ???C (97.7 ???F) Temporal 89 23 91 % -- 08/07/23 2100 119/72 -- -- 86 17 91 % -- 08/07/232029 116/71 -- -- 94 21 92 % -- 08/07/231999 129/82 36.6 ???C (97.9 ???F) Temporal 84 17 93 % -- 08/07/23 1945 110/65 -- -- 93 19 94 % -- 08/07/23 1930 108/67 -- -- 82 20 (!) 88 % -- 08/07/23 1915 -- -- -- 85 18 90 % -- 08/07/23 1825 124/80 -- -- 93 16 92 % -- 08/07/23 1608 -- -- -- -- -- (!) 88 % -- 08/07/23 1606 126/86 -- -- 93 16 (!) 88 % -- 08/07/23 1430 108/68 -- -- 87 15 92 % -- 08/07/23 1339 -- -- -- 86 25 93 % -- 08/07/23 1200 -- 36.5 ???C (97.7 ???F) Temporal 99 22 (!) 88 % -- 08/07/23 1146 -- -- -- 51 14 95 % -- 08/07/23 0800 -- 36.4 ???C (97.5 ???F) Temporal 71 19 95 % -- 08/07/23 0754 -- -- -- 67 20 94 % -- Physical Examination: GENERAL: AOx3, in no acute distress. Obese HEAD: Atraumatic, normocephalic. EYES: MEMO, EOMI. NECK: No JVD present. CARDIAC: RRR. No murmur, rubs, or gallops. RESPIRATORY: CTAB, no increased effort of breathing. ABDOMEN: Soft, nontender, nondistended. EXTREMITIES: Chronic lower limb edema +1 Relevant Lab Results No results found for this or any previous visit (from the past 4464 hour(s)). Lab Results Component Value Date TROPONINI 0.03 08/02/2023 Transesophageal Echo (MATT) Result Date: 08/07/2023 1 [facility] Heart Station [address] [place] [address] [phone] (fax) Transesophageal Echocardiogram-[facility] Name: DANIEL LYNN Study Date: 08/07/2023 04:01 PM B/P: 124 mmHg/80 mmHg HR: 97 bpm Date of : 1975 Location: [facility] Height: 62 in. Age: 47 year(s) Patient Room: 3233 Weight: 268 lb. Gender: Female Patient Status: InPt BSA: 2.16 m2 Indication: pre-op ASD Examination: MATT/Limited Doppler/CFI, 3D images Image Quality: Good Patient Consent: Informed, written consent was obtained for the procedure Exam Location: A MATT was performed in the [employer] without complications Anesthesia Pharyngeal anesthesia with viscous Lidocaine Conclusions Left Ventricle: The left ventricle is normal size. Global left ventricular systolic function is normal. Right Ventricle: The right ventricle is severely enlarged. Moderately reduced right ventricular systolic function. Left Atrium: Large secundum ASD with bidirectional flow. The largest septal defect measured 3.5cm. A balloon was inflated to seal the ASD. The largest balloon inflation dimensions were 3.1x3.6cm. The left atrium appears enlarged. Mitral Valve: Mild mitral regurgitation. Tricuspid Valve: Moderate tricuspid regurgitation. Medications Date Time Name Route Form Dose Units Ordered By Given By Comment 08/07/2023 06:42 PM Midazolam HCL (Versed) 3 milligrams 08/07/2023 06:42 PM Fentanyl (Opiates) 75 micrograms Valvular Assessment LVOT 0.7 - 1.1 m/sec Aortic Valve 1.0 - 1.7 m/sec Mitral Valve 0.6 - 1.3 m/sec Tricuspid Valve 0.3 - 0.7 m/sec Pulmonic Valve 0.6 - 0.9 m/sec Regurgitation No Mild Moderate Findings Left Ventricle: The left ventricle is normal size. Global left ventricular systolic function is normal. Right Ventricle: The right ventricle is severely enlarged. Moderately reduced right ventricular systolic function. Left Atrium: Large secundum ASD with bidirectional flow. The largest septal defect measured 3.5cm. A balloon was inflated to seal the ASD. The largest balloon inflation dimensions were 3.1x3.6cm. The left atrium appears enlarged. Left Atrium Appendage: Normal left atrial appendage, no thrombus seen. IAS: Large atrial septal defect. Right Atrium: The right atrium is severely enlarged. Mitral Valve: The mitral valve is normal in mobility and thickness. Mild mitral regurgitation. Aortic Valve: The aortic valve is normal. No aortic valve regurgi (more content not included)... [facility] 08-07-2023 Note Patient: Daniel rizvi Procedure Information Date/Time: 08/07/23 1000 Procedures: Coronary angiography Right heart cath Location: [facility] FIELD CONTACT PERSON 2 [facility] / [facility] (Cath) Providers: Chris Roger MD Clinical information reviewed: Allergies Meds Physical Exam Airway Mallampati: III TM distance: >3 FB Neck ROM: full Cardiovascular Rhythm: regular Rate: normal Dental Pulmonary (+) decreased breath sounds Abdominal (+) obese Abdomen: soft Anesthesia Plan other (Moderate sedation) Anesthetic plan and risks discussed with patient. Use of blood products discussed with patient who consented to blood products. Plan discussed with fellow and attending. Additional Equipment Requests [facility] 08-07-2023 Note H&P reviewed. RHC an d cardiac CT c/w PH and ASD. Plan for RHC/coronary angiogram for assessment of ASD closure. Procedures' details, risks and benefits discussed with the patient and she's agreeable. [facility] 08-07-2023 Note Physical Therapy Physical Therapy Evaluation Patient Name: Daniel Lynn : 1975 Today's Date: 08/07/2023 HX: 47 y/o female adm from OSH with pneumonia and for workup for atrial septal defect. RHC 08/04/23, L HC scheduled for today. General Family/Caregiver Present: No Subjective: Pt seen for inital evaluation in MICU, up in recliner following, call ight in reach. RN aware PT Diagnosis: Impaired mobility related to ASD. Patient Active Problem List Diagnosis Dyspnea on exertion MTHFR (methylene THF reductase) deficiency and homocystinuria (CMS/HCC) Type 2 diabetes mellitus (CMS/HCC) Smoker, current status unknown Pulmonary hypertension (CMS/HCC) ASD (atrial septal defect) Obesity due to excess calories Primary hypertension Past Medical History: Diagnosis Date Asthma COPD (chronic obstructive pulmonary disease) (CMS/HCC) Diabetes mellitus (CMS/HCC) Hypertension MTHFR gene mutation Obesity No past surgical history on file. Precautions Precautions Medical Precautions: cardiac, fall risk, oxygen, telemetry Pain Pain Assessment Pain Assessment: No/denies pain Pain Score: 0 - No pain Cognition Cognition Overall Cognitive Status: Within Functional Limits Arousal/Alertness: Appropriate responses to stimuli Orientation Level: Oriented X4 Following Commands: Follows all commands and directions without difficulty Safety Judgment: Good awareness of safety precautions Communication: Intact Cognition Comments: no safety concerns General Assessment General Assessment Hearing: WFl Home Living Home Living Type of Home: House Lives With: Spouse, Daughter, Son Home Adaptive Equipment: None Home Layout: Two level, Able to live on main level with bedroom/bathroom, Stairs to alternate level with rails Alternate Level Stairs-Rails: Right Alternate Level Stairs-Number of Steps: f/f Home Access: Stairs to enter with rails Entrance Stairs-Rails: Right Entrance Stairs-Number of Steps: 2 Bathroom Shower/Tub: Tub/shower unit Bathroom Toilet: Standard Bathroom Equipment: Grab bars in shower (suction cup) Prior Level of Function Prior Function Level of [place]: Independent with ADLs and functional transfers, Independent with homemaking with ambulation Prior Functional Mobility: Independent without device, Community distances Receives Help From: Family Homemaking Assistance: Independent 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, travels to multiple [facility]) Prior Function Comments: denies recent falls Vision Basic Assessment Vision - Basic Assessment Current Vision: Wears glasses all the time Activity Tolerance Activity Tolerance Endurance: Stage III Number of Rest Breaks: 1 Activity Tolerance Comments: pt amb in rubio with 4 liters 02 and telemetry monitoring General Assessments Sensation Light Touch: No apparent deficits Postural Control Postural Control: Within Functional Limits Righting Reactions: pt reports feeling unsteady out in rubio Static Sitting Balance Static Sitting-Level of Assistance: Independent Dynamic Sitting Balance Dynamic Sitting Balance-Level of Assistance: Independent Static Standing Balance Static Standing-Level of Assistance: Close supervision Dynamic Standing Balance Dynamic Standing-Balance: Forward lean Dynamic Standing Balance-Level of Assistance: Contact guard Functional Assessments Bed Mobility Bed Mobility: (NT- pt denies mobility issues , prefers up in chair) Transfers Transfer: Yes Transfer 1 Transfer From 1: Chair with arms Transfer Type 1: To and from Transfer to 1: Stand Transfer Device 1: none Transfer Level of Assistance 1: Distant supervision Trials/Comments 1: no issues, pt reports she is up in room to commode Ind , observed pt standing by window prior to evaluation independently Ambulation Ambulation: Yes Ambulation 1 Surface 1: Level tile Device 1: No device Assistance 1: Contact guard Quality of Gait 1: slow paced, mild unsteadiness, no SOB or cardiac sx. Pt stood for rest break ~ 20 sec. Able to turn safely and walk back to room. Comments/Distance (ft) 1: 40 x2 Stairs Stairs: No Extremity Assessments RUE Assessment RUE Assessment: Within Functional Limits LUE Assessment LUE Assessment: Within Functional Limits RLE Assessment RLE Assessment: Within Functional Limits LLE Assessment LLE Assessment: Within Functional Limits Outcome Assessments 6 Clicks (Mobility) Impairment Codes: Cardiac Help from another person turning from your back to your side while in a flat bed without using bedrails: None Help from another person moving from lying on your back to sitting on the side of a flat bed without using bedrails: None Help from another person moving to and from a bed to a chair (including a wheelchair): None Help from another person standing up from a chair using your ar (more content not included)... [facility] 08-07-2023 Note ------ Attestation signed by Isai George MD at 08/08/2023 11:29 AM I did not personally examine the patient. I discussed the case with the resident/fellow Neva Portillo. Teaching Physician's Revisions: as above ------ Cardiology Progress Note Subjective Subjective: Daniel Lynn is feeling better today, reports improvement of her SOB, denies any Chest pain, palpitation or dizziness. Currently on 4 L with significant improvement of O2 requirements. Objective Objective: Patient Vitals for the past 24 hrs: BP Temp Temp src Pulse Resp SpO2 08/07/23 0800 -- 36.4 ???C (97.5 ???F) Temporal 71 19 95 % 08/07/23 0754 -- -- -- 67 20 94 % 08/07/23 0432 104/72 36.4 ???C (97.5 ???F) Temporal 68 20 96 % 08/07/23 0430 -- -- -- -- -- 95 % 08/07/23 0039 -- -- -- -- -- 94 % 08/07/23 0000 112/71 -- -- 73 14 94 % 08/06/23 2111 -- -- -- 75 20 92 % 08/06/232002 109/73 36.3 ???C (97.3 ???F) Temporal 85 20 91 % 08/06/23 1600 -- 36.4 ???C (97.5 ???F) Temporal 83 21 94 % 08/06/23 1428 -- -- -- 83 18 92 % 08/06/23 1200 -- 36.4 ???C (97.5 ???F) Temporal 75 19 96 % Physical Examination: GENERAL: AOx3, in no acute distress. Obese HEAD: Atraumatic, normocephalic. EYES: MEMO, EOMI. NECK: No JVD present. CARDIAC: RRR. No murmur, rubs, or gallops. RESPIRATORY: CTAB, no increased effort of breathing. ABDOMEN: Soft, nontender, nondistended. EXTREMITIES: Chronic lower limb edema +1 Relevant Lab Results No results found for this or any previous visit (from the past 4464 hour(s)). Lab Results Component Value Date TROPONINI 0.03 08/02/2023 Limited Echo (TTE) w/wo Limited Doppler, Color Flow, Imaging Agent, Strain, 3D, Bubble Study Result Date: 08/02/2023 1 1 [facility] Heart Station [address] [place] [address] [phone] (fax) Echocardiogram-[facility] Name: DANIEL LYNN Study Date: 08/02/2023 09:04 AM B/P: 121 mmHg/88 mmHg HR: 66 bpm Date of : 1975 Location: [facility] Height: 62 in. Age: 47 year(s) Patient Room: 3233 Weight: 268 lb. Gender: Female Patient Status: InPt BSA: 2.16 m2 Indication: Pulmonary HTN Examination: Limited Echo/Limited Doppler, Color flow imaging, Lumason Contrast Image Quality: Poor sound transmission due to body habitus Patient Consent: Unable to explain procedure, due to medical/mental status Conclusions Left Ventricle: The left ventricle is normal size. Global left ventricular systolic function is normal. The EF is 65 % visually. Left ventricular wall thickness is mildly increased. The septum is abnormal, consistent with RV volume and/or pressure overload. Right Ventricle: The right ventricle is severely enlarged. Severely reduced right ventricular systolic function. Doppler studies suggest severely elevated right sided pressures. Left Atrium: The left atrium appears normal in size. Tricuspid Valve: Mild-moderate tricuspid regurgitation. Great Vessels: IVC: The IVC is dilated. Overall Conclusions: Due to suboptimal imaging Lumason contrast was administered for opacification and better delineation of endocardial borders. Measurements Left Ventricle Label Value Normal Value LVEF visual 65 % LVDd, 2D 4.49 cm (3.9cm - 5.3cm) LVDs, 2D 2.77 cm (2.1cm - 4cm) IVSd, 2D 1.37 cm (0.6cm - 1.1cm) LVPWd, 2D 1.1 cm (0.6cm - 0.9cm) LV Mass, 2D ASE 205.8 g LV Mass Index, 2D ASE 95.3 g/m?? (44g/m?? - 88.4g/m??) RWT, MM 0.49 (0 - 0.42) LVSVI, 2D 29.2 ml/m2 Right Ventricle Label Value Normal Value RVDd, 2D 4.71 cm (1.9cm - 3.8cm) TAPSE 1.7 cm Tricuspid Valve Label Value Normal Value RA Pressure 15 mmHg RVSP 79 mmHg TR Vmax 4 m/s Aorta Label Value Normal Value AoRoot, 2D 3 cm (1.4cm - 3.8cm) Great Vessels Label Value Normal Value IVC 2.7 cm (1.2cm - 2.3cm) Valvular Assessment LVOT 0.7 - 1.1 m/sec Aortic Valve 1.0 - 1.7 m/sec Mitral Valve 0.6 - 1.3 m/sec Tricuspid Valve 0.3 - 0.7 m/sec Pulmonic Valve 0.6 - 0.9 m/sec Regurgitation No No MildMod Trivial Stenosis No Findings Left Ventricle: The left ventricle is normal size. Global left ventricular systolic function is normal. The EF is 65 % visually. Left ventricular wall thickness is mildly increased. The septum is abnormal, consistent with RV volume and/or pressure overload. Right Ventricle: The right ventricle is severely enlarged. Severely reduced right ventricular systolic function. Doppler studies suggest severely elevated right sided pressures. Left Atrium: The left atrium appears normal in size. Right Atrium: The right atrium appears enlarged. Mitral Valve: Mitral valve appears normal. No mitral regurgitation. There is mild mitral annular calcification. Aortic Valve: Aortic valve appears normal. No aortic valve regurgitation. No aortic valve stenosis. Tricuspid Valve: The tricuspid valve debora (more content not included)... [facility] 08-07-2023 Note ------ Attestation signed by Kvng Kumar MD at 08/07/2023 11:57 PM I reviewed the salient portions of the patient history. I have seen and examined the patient during rounds with the resident/fellow. I repeated the askew components of the exam. Agree with the noted assessment and plan. Kvng Kumar MD [facility] Pulmonary and Critical Care Medicine ------ Medical ICU Progress Note Patient - Daniel Lynn Age - 47 y.o. - 1975 [facility] # - [id number] Date of Admission - 08/01/2023 1:47 AM HPI/Hospital Course Subjective 47-year-old female who presented to [facility] on 07/25 with 4 days of worsening shortness of breath and chest tightness, in the ER patient was satting 80s on room air, chest x-ray suggested bibasilar infiltrates, viral panel was +ve for Rhino virus, she was admitted for pneumonia, oxygen requirement and work of breathing had declined during her hospital stay, hence was transitioned to BiPAP and moved to the ICU. Patient has a long history of asthma, diagnosed at age of 14, no PFT in the system. ECHO revealed preserved ejection fraction, with diastolic heart failure and severely dilated right atrium and ventricles, with RVSP of 99 mmHg. Patient is being diuresed with no significant improvement on symptoms, repeat ECHO showed the same findings but RVSP was down to 76 mmHg. Cardiology has been following the patient's, who recommended transfer to [facility] for right heart cath. At [facility] Medication at [facility]: Tylenol, DuoNebs, Xanax, Lovenox for DVT prophylaxis, Lasix 40 twice daily, insulin, Solu-Medrol 40 every 8 hours, Verapamil 240 mg, azithromycin, ceftriaxone, lisinopril 10 mg. Viral panel positive for entero-/rhino, Influenza A/B negative Echo on 07/31 showed global left ventricle systolic function, ejection fraction 60 to 65%. D-shaped septum consistent with right ventricular pressure and /or volume overloaded right atrium and ventricle were severely dilated with severely reduced systolic function, grade 2 moderate diastolic dysfunction. Moderate tricuspid regurg, RVSP 76 mmHg. Echo on 07/27 showed same above findings with RVSP 99 mmHg CTA chest on 07/27 revealed no evidence of PE, right ventricular hypertrophy with reflux of contrast into the IVC and hepatic veins, enlarged main pulmonary artery measuring 4.5 cm., Bilateral right greater than left patchy groundglass opacities likely presenting multifocal pneumonia including COVID-pneumonia. Patient was transferred to medical ICU [facility] for hypoxic respiratory failure likely due to pulmonary hypertension. Patient was started on diuretics Lasix IVP twice daily. Who was placed on BiPAP with alternating with high flow nasal cannula. Cardiology was consulted. Repeated echo showed RVSP of 79 with very large right ventricle and right atrium. CT chest obtained which showed collapse of right middle lobe and small infiltration in the left lower lobe. Patient was started on broad-spectrum antibiotic vancomycin and cefepime. Sputum culture remains negative. Blood culture remains negative. Patient remains afebrile. VQ scan obtained which was unremarkable. Connective tissue disease work-up were sent. Cardiology consulted, right sided heart cath done on 08/02. Which showed as below. CT heart structure ordered. Patient was started on sildenafil Hemodynamic Data: RA: 11 RV: 83/9, 14 PA: 79/31 (48) PCWP: 12 O2 Sat: SVC sat: 70%, IVC sat: 73%, HRA sat: 75%, MRA sat: 81%, LRA sat: 82%, RV sat: 79%, LPA sat: 82%, RPA sat: 82%, AO sat: 90% Qp: 12.94, Qpi: 5.97, Qs: 6.13, Qsi: 2.83; Qp/Qs: 2.11 BP: 125/80 (96) TP PVR: 2.8 Wood units SUBJECTIVE Seen and examined at bedside, no acute events. Plan for cardiac cath today. OBJECTIVE Vitals height is 1.575 m (5' 2.01 ) and weight is 122 kg (268 lb 1.3 oz). Her temporal temperature is 36.4 ???C (97.5 ???F). Her blood pressure is 104/72 and her pulse is 67. Her respiration is 20 and oxygen saturation is 94%. Temp: [36.3 ???C (97.3 ???F)-36.4 ???C (97.5 ???F)] 36.4 ???C (97.5 ???F) Heart Rate: [67-88] 67 Resp: [14-21] 20 BP: (104-112)/(71-73) 104/72 FiO2 (%): [60 %] 60 % Physical Exam: General: Obese, alert and oriented x3, on Bipap machine HEENT: Atraumatic, normocephalic, PERRLA Neck: Supple neck. Respiratory: Decrease breath sounds bilaterally Heart: Regular rhythm, no murmur, no rub. Neurology: Can move all extremities, no focal deficit. Abdomen: Soft, distended, not tender Extremities: Bilateral leg edema Skin: Warm and dry. Weight: Admission weight: 127 kg (280 lb 3.3 oz) Wt Readings from Last 1 Encounters: 08/05/23 122 kg (268 lb 1.3 oz) Input/Output: Intake/Output Summary (Last 24 hours) at (more content not included)... [facility] 08-06-2023 Note ------ Attestation signed by Db Hicks MD at 08/07/2023 9:54 AM By using the attestations below, the signing clinician agrees that I have read and verify that the documentation has been personally reviewed by me and ensure that the documentation accurately reflects the encounter. GC: I personally saw this patient on the day of the encounter, performed the askew portion(s) of the service and participated in the management and confirm the resident's documentation. Please note there may be an additional personal documentation from me. Planned CMR next week. Ct gentle diuresis ------ Cardiology Progress Note Subjective Subjective: Daniel Lynn is feeling better today, reports improvement of her SOB, denies any Chest pain, palpitation or dizziness. Currently on 6 L with significant improvement of O2 requirements. RHC done 08/02, her PCWP was 12. Findings were suggestive of pre-capillary Pulmonary HTN. V/Q scan showed Low probability of pulmonary thromboembolism. CTA heart on 08/03/2023 showed communication between right and left atrium which favors ASD skin them, large RA RV and dilated pulmonary artery Objective Objective: Patient Vitals for the past 24 hrs: BP Temp Temp src Pulse Resp SpO2 08/06/23 0818 -- -- -- -- -- 94 % 08/06/23 0813 -- -- -- -- -- 94 % 08/06/23 0405 100/57 36.8 ???C (98.2 ???F) Temporal 56 20 95 % 08/06/23 0233 -- -- -- 57 18 94 % 08/06/23 0000 -- 36.2 ???C (97.2 ???F) Temporal -- -- -- 08/05/23 2349 -- -- -- 67 23 98 % 08/05/23 2340 130/78 -- -- 77 24 98 % 08/05/23 2020 119/67 36.6 ???C (97.9 ???F) Temporal 80 20 96 % 08/05/232001 -- -- -- 77 22 96 % 08/05/23 1600 116/69 36.4 ???C (97.5 ???F) Temporal 71 23 96 % 08/05/23 1200 115/77 36.6 ???C (97.9 ???F) Temporal 78 15 93 % 08/05/23 0900 121/78 -- -- 97 24 (!) 86 % Physical Examination: GENERAL: AOx3, in no acute distress. Obese HEAD: Atraumatic, normocephalic. EYES: MEMO, EOMI. NECK: No JVD present. CARDIAC: RRR. No murmur, rubs, or gallops. RESPIRATORY: CTAB, no increased effort of breathing. ABDOMEN: Soft, nontender, nondistended. EXTREMITIES: Chronic lower limb edema +1 Relevant Lab Results No results found for this or any previous visit (from the past 4464 hour(s)). Lab Results Component Value Date TROPONINI 0.03 08/02/2023 Limited Echo (TTE) w/wo Limited Doppler, Color Flow, Imaging Agent, Strain, 3D, Bubble Study Result Date: 08/02/2023 1 1 [facility] Heart Station [address] [place] [address] [phone] (fax) Echocardiogram-[facility] Name: DANIEL LYNN Study Date: 08/02/2023 09:04 AM B/P: 121 mmHg/88 mmHg HR: 66 bpm Date of : 1975 Location: [facility] Height: 62 in. Age: 47 year(s) Patient Room: 3233 Weight: 268 lb. Gender: Female Patient Status: InPt BSA: 2.16 m2 Indication: Pulmonary HTN Examination: Limited Echo/Limited Doppler, Color flow imaging, Lumason Contrast Image Quality: Poor sound transmission due to body habitus Patient Consent: Unable to explain procedure, due to medical/mental status Conclusions Left Ventricle: The left ventricle is normal size. Global left ventricular systolic function is normal. The EF is 65 % visually. Left ventricular wall thickness is mildly increased. The septum is abnormal, consistent with RV volume and/or pressure overload. Right Ventricle: The right ventricle is severely enlarged. Severely reduced right ventricular systolic function. Doppler studies suggest severely elevated right sided pressures. Left Atrium: The left atrium appears normal in size. Tricuspid Valve: Mild-moderate tricuspid regurgitation. Great Vessels: IVC: The IVC is dilated. Overall Conclusions: Due to suboptimal imaging Lumason contrast was administered for opacification and better delineation of endocardial borders. Measurements Left Ventricle Label Value Normal Value LVEF visual 65 % LVDd, 2D 4.49 cm (3.9cm - 5.3cm) LVDs, 2D 2.77 cm (2.1cm - 4cm) IVSd, 2D 1.37 cm (0.6cm - 1.1cm) LVPWd, 2D 1.1 cm (0.6cm - 0.9cm) LV Mass, 2D ASE 205.8 g LV Mass Index, 2D ASE 95.3 g/m?? (44g/m?? - 88.4g/m??) RWT, MM 0.49 (0 - 0.42) LVSVI, 2D 29.2 ml/m2 Right Ventricle Label Value Normal Value RVDd, 2D 4.71 cm (1.9cm - 3.8cm) TAPSE 1.7 cm Tricuspid Valve Label Value Normal Value RA Pressure 15 mmHg RVSP 79 mmHg TR Vmax 4 m/s Aorta Label Value Normal Value AoRoot, 2D 3 cm (1.4cm - 3.8cm) Great Vessels Label Value Normal Value IVC 2.7 cm (1.2cm - 2.3cm) Valvular Assessment LVOT 0.7 - 1.1 m/sec Aortic Valve 1.0 - 1.7 m/sec Mitral Valve 0.6 - 1.3 m/sec Tricuspid Valve 0.3 - 0.7 m/sec Pulmonic Valve 0.6 - 0.9 m/sec Regurgitation No No MildMod Trivial Stenosis No Findings Left Ventricle: The left ventricle is normal size. Global left ventricu (more content not included)... [facility] 08-06-2023 Note ------ Attestation signed by Lissette Delgado MD at 08/06/2023 1:19 PM I personally saw and examined the patient on the same date of service as resident/fellow Cici Villareal MD . I discussed the findings and therapeutic plan with the resident/fellow Cici Villareal MD . I agree with the documentation, except for any edits/updates below. Teaching Physician's Revisions: Patient noted to have severe Pul HTN and ASD. Cardiothoracic surgery on board with plan for closure of ASD. Cardiac MRI pending. Continue sildenafil and diuretics. Patient is feeling better and oxygen requirement is getting better. Taper steroids. Ok to transfer out of ICU. ------ Medical ICU Progress Note Patient - Daniel Lynn Age - 47 y.o. - 1975 Date of Admission - 08/01/2023 1:47 AM HPI/Hospital Course Subjective 47-year-old female who presented to [facility] on 07/25 with 4 days of worsening shortness of breath and chest tightness, in the ER patient was satting 80s on room air, chest x-ray suggested bibasilar infiltrates, viral panel was +ve for Rhino virus, she was admitted for pneumonia, oxygen requirement and work of breathing had declined during her hospital stay, hence was transitioned to BiPAP and moved to the ICU. Patient has a long history of asthma, diagnosed at age of 14, no PFT in the system. ECHO revealed preserved ejection fraction, with diastolic heart failure and severely dilated right atrium and ventricles, with RVSP of 99 mmHg. Patient is being diuresed with no significant improvement on symptoms, repeat ECHO showed the same findings but RVSP was down to 76 mmHg. Cardiology has been following the patient's, who recommended transfer to [facility] for right heart cath. At [facility] Medication at [facility]: Tylenol, DuoNebs, Xanax, Lovenox for DVT prophylaxis, Lasix 40 twice daily, insulin, Solu-Medrol 40 every 8 hours, Verapamil 240 mg, azithromycin, ceftriaxone, lisinopril 10 mg. Viral panel positive for entero-/rhino, Influenza A/B negative Echo on 07/31 showed global left ventricle systolic function, ejection fraction 60 to 65%. D-shaped septum consistent with right ventricular pressure and /or volume overloaded right atrium and ventricle were severely dilated with severely reduced systolic function, grade 2 moderate diastolic dysfunction. Moderate tricuspid regurg, RVSP 76 mmHg. Echo on 07/27 showed same above findings with RVSP 99 mmHg CTA chest on 07/27 revealed no evidence of PE, right ventricular hypertrophy with reflux of contrast into the IVC and hepatic veins, enlarged main pulmonary artery measuring 4.5 cm., Bilateral right greater than left patchy groundglass opacities likely presenting multifocal pneumonia including COVID-pneumonia. Patient was transferred to medical ICU [facility] for hypoxic respiratory failure likely due to pulmonary hypertension. Patient was started on diuretics Lasix IVP twice daily. Who was placed on BiPAP with alternating with high flow nasal cannula. Cardiology was consulted. Repeated echo showed RVSP of 79 with very large right ventricle and right atrium. CT chest obtained which showed collapse of right middle lobe and small infiltration in the left lower lobe. Patient was started on broad-spectrum antibiotic vancomycin and cefepime. Sputum culture remains negative. Blood culture remains negative. Patient remains afebrile. VQ scan obtained which was unremarkable. Connective tissue disease work-up were sent. Cardiology consulted, right sided heart cath done on 08/02. Which showed as below. CT heart structure ordered. Patient was started on sildenafil Hemodynamic Data: RA: 11 RV: 83/9, 14 PA: 79/31 (48) PCWP: 12 O2 Sat: SVC sat: 70%, IVC sat: 73%, HRA sat: 75%, MRA sat: 81%, LRA sat: 82%, RV sat: 79%, LPA sat: 82%, RPA sat: 82%, AO sat: 90% Qp: 12.94, Qpi: 5.97, Qs: 6.13, Qsi: 2.83; Qp/Qs: 2.11 BP: 125/80 (96) TP PVR: 2.8 Wood units SUBJECTIVE No acute overnight events. Patient seen examined bedside at bedside this morning. Remains afebrile hemodynamically stable. She has no complaints today. On 6 L of oxygen via nasal cannula. OBJECTIVE Vitals height is 1.575 m (5' 2.01 ) and weight is 122 kg (268 lb 1.3 oz). Her temporal temperature is 36.8 ???C (98.2 ???F). Her blood pressure is 100/57 and her pulse is 56. Her respiration is 20 and oxygen saturation is 94%. Temp: [36.2 ???C (97.2 ???F)-36.8 ???C (98.2 ???F)] 36.8 ???C (98.2 ???F) Heart Rate: [56-97] 56 Resp: [15-24] 20 BP: (100-130)/(57-78) 100/57 FiO2 (%): [60 %] 60 % Physical Exam: General: Obese, alert and oriented x3, on Bipap machine HEENT: Atraumatic, normocephalic, PERRLA Neck: Supple neck. Respiratory: Decrease breath sounds (more content not included)... [facility] 08-05-2023 Note Subjective Daniel Lynn is a 47 y.o. female with PMH of Asthma and Obesity who was initially evaluated in [place] on 07/25 with with 4 days of worsening of SOB and chest tightness. Upon assessment in the ED she was saturating in the 80s on room air, CXR suggested bibasilar infiltrates, viral panel was positive for Rhino virus. Admitted for pneumonia, oxygen requirements and work of breathing had declined during her hospital stay. She was transitioned to BiPAP and moved to the ICU. Underwent echocardiogram which revealed preserved ejection fraction, with diastolic heart failure and severely dilated right atrium and ventricles, with RVSP of 99 mmHg. She was being diuresed with no significant improvement of symptoms, repeat ECHO showed the same findings but RVSP was down to 76 mmHg. Cardiology had been following the patient and they recommended transfer to [facility] for right heart catherization. She arrived to [facility] 08/01 where she was admitted to the ICU and started on diuretics- Lasix IV twice daily. Placed on BiPAP with alternating with high flow nasal cannula. Cardiology was consulted- repeat echo showed RVSP of 79 with very large right ventricle and right atrium. CT chest obtained which showed collapse of right middle lobe and small infiltration in the left lower lobe. Started on broad-spectrum antibiotic vancomycin and cefepime. Sputum culture remains negative. Blood culture remains negative. Patient remains afebrile. VQ scan obtained which was unremarkable. Connective tissue disease work-up were sent. Underwent right sided heart cath 08/02, which showed PA: 79/31 (48), PCWP: 12, preserved CI/CO- she was started on sildenafil for pulmonary hypertension. CTA heart structure ordered and findings consistent with secundum type ASD. CT Surgery was consulted for surgical evaluation and recommendations. Talking with patient states she knew about the hole in her heart since she was 14. That was when it was originally diagnosed, it was proven by echocardiogram. States she only followed with her family doctor and no concern was ever brought up about it. She has had 2 C-sections in the past. Works full-time. Endorses for the past 6 months she has had swelling in her lower extremities and feeling fatigued. Interval: Patient was seen beside. Resting comfortably in bed. Oxygen weaned from Salter 12 L yesterday to 8 L Salter today, saturation 96%. Did not appear to be in any respiratory distress. Denies chest pain, palpitations. Denies fevers or chills. Objective Patient Vitals for the past 24 hrs: BP Temp Temp src Pulse Resp SpO2 Weight 08/05/23 0823 -- -- -- -- -- 92 % -- 08/05/23 0800 124/85 36.5 ???C (97.7 ???F) Temporal 71 18 92 % -- 08/05/23 0700 119/76 -- -- 75 22 93 % -- 08/05/23 0600 110/80 -- -- 61 17 90 % 122 kg (268 lb 1.3 oz) 08/05/23 0500 112/78 -- -- 59 18 91 % -- 08/05/23 0400 106/69 -- -- 67 18 91 % -- 08/05/23 0300 118/62 -- -- 62 15 92 % -- 08/05/23 0200 113/65 -- -- 63 17 93 % -- 08/05/23 0100 114/68 -- -- 65 16 92 % -- 08/05/23 0000 118/71 -- -- 70 14 95 % -- 08/04/23 2300 120/74 -- -- 74 19 94 % -- 08/04/23 2200 118/77 -- -- 77 20 94 % -- 08/04/23 2100 99/73 -- -- 82 19 95 % -- 08/04/23 2000 123/60 -- -- 91 25 91 % -- 08/04/23 1800 110/73 -- -- 89 24 91 % -- 08/04/23 1700 119/67 -- -- 71 17 93 % -- 08/04/23 1600 (!) 98/44 36.6 ???C (97.9 ???F) -- 84 18 90 % -- 08/04/23 1500 112/65 -- -- 86 21 95 % -- 08/04/23 1416 -- -- -- 82 21 92 % -- 08/04/23 1415 -- -- -- 80 17 -- -- 08/04/23 1400 -- -- -- 87 21 92 % -- 08/04/23 1300 -- -- -- 85 17 96 % -- 08/04/23 1200 -- 36.3 ???C (97.3 ???F) -- 79 21 94 % -- 08/04/23 1100 108/68 -- -- 81 16 -- -- 08/04/23 1000 110/73 -- -- 86 21 -- -- 08/04/23 0939 -- -- -- 88 18 95 % -- Physical Exam Vitals reviewed. Constitutional: General: She is not in acute distress. Appearance: Normal appearance. She is obese. She is ill-appearing. HENT: Head: Normocephalic and atraumatic. Nose: Nose normal. Mouth/Throat: Mouth: Mucous membranes are moist. Pharynx: Oropharynx is clear. Eyes: Extraocular Movements: Extraocular movements intact. Conjunctiva/sclera: Conjunctivae normal. Pupils: Pupils are equal, round, and reactive to light. Cardiovascular: Rate and Rhythm: Normal rate and regular rhythm. Pulses: Normal pulses. Heart sounds: Murmur heard. Pulmonary: Effort: Pulmonary effort is normal. No respiratory distress. Breath sounds: Normal breath sounds. Comments: 8L salter Abdominal: General: Abdomen is flat. Bowel sounds are normal. There is no distension. Palpations: Abdomen is soft. Musculoskeletal: General: Normal range of motion. Cervical back: Normal range of motion. Right lower leg: Edema (moderate, 3+) present. Left lower leg: Edema (moderate, 3+) present. Skin: General: Skin is warm and dry. Capillary Refill: Capillary refill takes less than 2 seconds. Neurological: Mental Stat (more content not included)... [facility] 08-05-2023 Note Subjective Daniel Lynn is a 47 y.o. female with PMH of Asthma and Obesity who was initially evaluated in [place] on 07/25 with with 4 days of worsening of SOB and chest tightness. Upon assessment in the ED she was saturating in the 80s on room air, CXR suggested bibasilar infiltrates, viral panel was positive for Rhino virus. Admitted for pneumonia, oxygen requirements and work of breathing had declined during her hospital stay. She was transitioned to BiPAP and moved to the ICU. Underwent echocardiogram which revealed preserved ejection fraction, with diastolic heart failure and severely dilated right atrium and ventricles, with RVSP of 99 mmHg. She was being diuresed with no significant improvement of symptoms, repeat ECHO showed the same findings but RVSP was down to 76 mmHg. Cardiology had been following the patient and they recommended transfer to [facility] for right heart catherization. She arrived to [facility] 08/01 where she was admitted to the ICU and started on diuretics- Lasix IV twice daily. Placed on BiPAP with alternating with high flow nasal cannula. Cardiology was consulted- repeat echo showed RVSP of 79 with very large right ventricle and right atrium. CT chest obtained which showed collapse of right middle lobe and small infiltration in the left lower lobe. Started on broad-spectrum antibiotic vancomycin and cefepime. Sputum culture remains negative. Blood culture remains negative. Patient remains afebrile. VQ scan obtained which was unremarkable. Connective tissue disease work-up were sent. Underwent right sided heart cath 08/02, which showed PA: 79/31 (48), PCWP: 12, preserved CI/CO- she was started on sildenafil for pulmonary hypertension. CTA heart structure ordered and findings consistent with secundum type ASD. CT Surgery was consulted for surgical evaluation and recommendations. Talking with patient states she knew about the hole in her heart since she was 14. That was when it was originally diagnosed, it was proven by echocardiogram. States she only followed with her family doctor and no concern was ever brought up about it. She has had 2 C-sections in the past. Works full-time. Endorses for the past 6 months she has had swelling in her lower extremities and feeling fatigued. Interval: Patient was seen beside. Resting comfortably in bed. Oxygen weaned from Salter 12 L yesterday to 8 L Salter today, saturation 96%. Did not appear to be in any respiratory distress. Denies chest pain, palpitations. Denies fevers or chills. Objective Patient Vitals for the past 24 hrs: BP Temp Temp src Pulse Resp SpO2 Weight 08/05/23822 -- -- -- -- -- 92 % -- 08/05/23 08 124/85 36.5 ???C (97.7 ???F) Temporal 71 18 92 % -- 08/05/23 0700 119/76 -- -- 75 22 93 % -- 08/05/23 0600 110/80 -- -- 61 17 90 % 122 kg (268 lb 1.3 oz) 08/05/23 0500 112/78 -- -- 59 18 91 % -- 08/05/23 0400 106/69 -- -- 67 18 91 % -- 08/05/23 0300 118/62 -- -- 62 15 92 % -- 08/05/23 0200 113/65 -- -- 63 17 93 % -- 08/05/23 0100 114/68 -- -- 65 16 92 % -- 08/05/23 0000 118/71 -- -- 70 14 95 % -- 08/04/23 2300 120/74 -- -- 74 19 94 % -- 08/04/23 2200 118/77 -- -- 77 20 94 % -- 08/04/23 2100 99/73 -- -- 82 19 95 % -- 08/04/23 2000 123/60 -- -- 91 25 91 % -- 08/04/23 1800 110/73 -- -- 89 24 91 % -- 08/04/23 1700 119/67 -- -- 71 17 93 % -- 08/04/23 1600 (!) 98/44 36.6 ???C (97.9 ???F) -- 84 18 90 % -- 08/04/23 1500 112/65 -- -- 86 21 95 % -- 08/04/23 1416 -- -- -- 82 21 92 % -- 08/04/23 1415 -- -- -- 80 17 -- -- 08/04/23 1400 -- -- -- 87 21 92 % -- 08/04/23 1300 -- -- -- 85 17 96 % -- 08/04/23 1200 -- 36.3 ???C (97.3 ???F) -- 79 21 94 % -- 08/04/23 1100 108/68 -- -- 81 16 -- -- 08/04/23 1000 110/73 -- -- 86 21 -- -- 08/04/23 0939 -- -- -- 88 18 95 % -- Physical Exam Vitals reviewed. Constitutional: General: She is not in acute distress. Appearance: Normal appearance. She is obese. She is ill-appearing. HENT: Head: Normocephalic and atraumatic. Nose: Nose normal. Mouth/Throat: Mouth: Mucous membranes are moist. Pharynx: Oropharynx is clear. Eyes: Extraocular Movements: Extraocular movements intact. Conjunctiva/sclera: Conjunctivae normal. Pupils: Pupils are equal, round, and reactive to light. Cardiovascular: Rate and Rhythm: Normal rate and regular rhythm. Pulses: Normal pulses. Heart sounds: Murmur heard. Pulmonary: Effort: Pulmonary effort is normal. No respiratory distress. Breath sounds: Normal breath sounds. Comments: 8L salter Abdominal: General: Abdomen is flat. Bowel sounds are normal. There is no distension. Palpations: Abdomen is soft. Musculoskeletal: General: Normal range of motion. Cervical back: Normal range of motion. Right lower leg: Edema (moderate, 3+) present. Left lower leg: Edema (moderate, 3+) present. Skin: General: Skin is warm and dry. Capillary Refill: Capillary refill takes less than 2 seconds. Neurological: Mental Stat (more content not included)... [facility] 08-05-2023 Note Cardiology Progress Note Subjective Subjective: Daniel Lynn is feeling better today, reports improvement of her SOB, denies any Chest pain, palpitation or dizziness. Currently on 9 L with significant improvement of O2 requirements. I&O : -1 L in last 24 hours RHC done 08/02, her PCWP was 12. Findings were suggestive of pre-capillary Pulmonary HTN. V/Q scan showed Low probability of pulmonary thromboembolism. CTA heart on 08/03/2023 showed communication between right and left atrium which favors ASD skin them, large RA RV and dilated pulmonary artery Objective Objective: Patient Vitals for the past 24 hrs: BP Temp Temp src Pulse Resp SpO2 Weight 08/05/23 0823 -- -- -- -- -- 92 % -- 08/05/23 0800 124/85 36.5 ???C (97.7 ???F) Temporal 71 18 92 % -- 08/05/23 0700 119/76 -- -- 75 22 93 % -- 08/05/23 0600 110/80 -- -- 61 17 90 % 122 kg (268 lb 1.3 oz) 08/05/23 0500 112/78 -- -- 59 18 91 % -- 08/05/23 0400 106/69 -- -- 67 18 91 % -- 08/05/23 0300 118/62 -- -- 62 15 92 % -- 08/05/23 0200 113/65 -- -- 63 17 93 % -- 08/05/23 0100 114/68 -- -- 65 16 92 % -- 08/05/23 0000 118/71 -- -- 70 14 95 % -- 08/04/23 2300 120/74 -- -- 74 19 94 % -- 08/04/23 2200 118/77 -- -- 77 20 94 % -- 08/04/23 2100 99/73 -- -- 82 19 95 % -- 08/04/23 2000 123/60 -- -- 91 25 91 % -- 08/04/23 1800 110/73 -- -- 89 24 91 % -- 08/04/23 1700 119/67 -- -- 71 17 93 % -- 08/04/23 1600 (!) 98/44 36.6 ???C (97.9 ???F) -- 84 18 90 % -- 08/04/23 1500 112/65 -- -- 86 21 95 % -- 08/04/23 1416 -- -- -- 82 21 92 % -- 08/04/23 1415 -- -- -- 80 17 -- -- 08/04/23 1400 -- -- -- 87 21 92 % -- 08/04/23 1300 -- -- -- 85 17 96 % -- 08/04/23 1200 -- 36.3 ???C (97.3 ???F) -- 79 21 94 % -- 08/04/23 1100 108/68 -- -- 81 16 -- -- 08/04/23 1000 110/73 -- -- 86 21 -- -- 08/04/23 0939 -- -- -- 88 18 95 % -- 08/04/23 0930 -- -- -- 83 19 -- -- Physical Examination: GENERAL: AOx3, in no acute distress. Obese HEAD: Atraumatic, normocephalic. EYES: MEMO, EOMI. NECK: No JVD present. CARDIAC: RRR. No murmur, rubs, or gallops. RESPIRATORY: CTAB, no increased effort of breathing. ABDOMEN: Soft, nontender, nondistended. EXTREMITIES: Chronic lower limb edema +1 Relevant Lab Results No results found for this or any previous visit (from the past 4464 hour(s)). Lab Results Component Value Date TROPONINI 0.03 08/02/2023 Limited Echo (TTE) w/wo Limited Doppler, Color Flow, Imaging Agent, Strain, 3D, Bubble Study Result Date: 08/02/2023 1 [facility] Heart Station [address] [place] [address] [phone] (fax) Echocardiogram-[facility] Name: DANIEL LYNN Study Date: 08/02/2023 09:04 AM B/P: 121 mmHg/88 mmHg HR: 66 bpm Date of : 1975 Location: [facility] Height: 62 in. Age: 47 year(s) Patient Room: 3233 Weight: 268 lb. Gender: Female Patient Status: InPt BSA: 2.16 m2 Indication: Pulmonary HTN Examination: Limited Echo/Limited Doppler, Color flow imaging, Lumason Contrast Image Quality: Poor sound transmission due to body habitus Patient Consent: Unable to explain procedure, due to medical/mental status Conclusions Left Ventricle: The left ventricle is normal size. Global left ventricular systolic function is normal. The EF is 65 % visually. Left ventricular wall thickness is mildly increased. The septum is abnormal, consistent with RV volume and/or pressure overload. Right Ventricle: The right ventricle is severely enlarged. Severely reduced right ventricular systolic function. Doppler studies suggest severely elevated right sided pressures. Left Atrium: The left atrium appears normal in size. Tricuspid Valve: Mild-moderate tricuspid regurgitation. Great Vessels: IVC: The IVC is dilated. Overall Conclusions: Due to suboptimal imaging Lumason contrast was administered for opacification and better delineation of endocardial borders. Measurements Left Ventricle Label Value Normal Value LVEF visual 65 % LVDd, 2D 4.49 cm (3.9cm - 5.3cm) LVDs, 2D 2.77 cm (2.1cm - 4cm) IVSd, 2D 1.37 cm (0.6cm - 1.1cm) LVPWd, 2D 1.1 cm (0.6cm - 0.9cm) LV Mass, 2D ASE 205.8 g LV Mass Index, 2D ASE 95.3 g/m?? (44g/m?? - 88.4g/m??) RWT, MM 0.49 (0 - 0.42) LVSVI, 2D 29.2 ml/m2 Right Ventricle Label Value Normal Value RVDd, 2D 4.71 cm (1.9cm - 3.8cm) TAPSE 1.7 cm Tricuspid Valve Label Value Normal Value RA Pressure 15 mmHg RVSP 79 mmHg TR Vmax 4 m/s Aorta Label Value Normal Value AoRoot, 2D 3 cm (1.4cm - 3.8cm) Great Vessels Label Value Normal Value IVC 2.7 cm (1.2cm - 2.3cm) Valvular Assessment LVOT 0.7 - 1.1 m/sec Aortic Valve 1.0 - 1.7 m/sec Mitral Valve 0.6 - 1.3 m/sec Tricuspid Valve 0.3 - 0.7 m/sec Pulmonic Valve 0.6 - 0.9 m/sec Regurgitation No No MildMod Trivial Stenosis No Findings Left Ventricle: The left ventricle is normal size. Global left ventricular systolic function is normal. The EF is 65 % visually. Left ventricular wall thickness is mildl (more content not included)... [facility] 08-05-2023 Note ------ Attestation signed by Tucker Bennett MD at 08/05/2023 3:21 PM I personally saw and examined the patient on the same date of service as resident/fellow . I discussed the findings and therapeutic plan with the resident/fellow . I agree with the documentation, except for any edits/updates below. Teaching Physician's Revisions: Severe pHTN, ruled out class 2 with normal PCWP and LV function, class 4 with neg CTA and VQ, class [address] findings in lung or consistent hx. ANSHUL/OHS not ruled out, HCO3 elevated. PCO2 was 60. Class 1 pHTN working diagnosis. Reviewed echo images with severely dilated RV, ASD. Most likely Class 1 due to congenital heart disease. Started on PDEI. May start second agent soon. She was told at age 14 that she has a heart defect and never received any permanent fix. She may or may not be a candidate for ASD closure, depending upon the hemodynamic with transient ASD closure. Continue diuretics. High risk patient for further decline and morbidity/mortality. 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 Clinically patient is at very high risk for obstructive sleep apnea , and also have consistent history. ------ Medical ICU Progress Note Patient - Daniel Lynn Age - 47 [facility] 1975 [id number] Date of Admission - 08/01/2023 1:47 AM HPI/Hospital Course Subjective 47-year-old female who presented to [facility] on 07/25 with 4 days of worsening shortness of breath and chest tightness, in the ER patient was satting 80s on room air, chest x-ray suggested bibasilar infiltrates, viral panel was +ve for Rhino virus, she was admitted for pneumonia, oxygen requirement and work of breathing had declined during her hospital stay, hence was transitioned to BiPAP and moved to the ICU. Patient has a long history of asthma, diagnosed at age of 14, no PFT in the system. ECHO revealed preserved ejection fraction, with diastolic heart failure and severely dilated right atrium and ventricles, with RVSP of 99 mmHg. Patient is being diuresed with no significant improvement on symptoms, repeat ECHO showed the same findings but RVSP was down to 76 mmHg. Cardiology has been following the patient's, who recommended transfer to [facility] for right heart cath. At [facility] Medication at [facility]: Tylenol, DuoNebs, Xanax, Lovenox for DVT prophylaxis, Lasix 40 twice daily, insulin, Solu-Medrol 40 every 8 hours, Verapamil 240 mg, azithromycin, ceftriaxone, lisinopril 10 mg. Viral panel positive for entero-/rhino, Influenza A/B negative Echo on 07/31 showed global left ventricle systolic function, ejection fraction 60 to 65%. D-shaped septum consistent with right ventricular pressure and /or volume overloaded right atrium and ventricle were severely dilated with severely reduced systolic function, grade 2 moderate diastolic dysfunction. Moderate tricuspid regurg, RVSP 76 mmHg. Echo on 07/27 showed same above findings with RVSP 99 mmHg CTA chest on 07/27 revealed no evidence of PE, right ventricular hypertrophy with reflux of contrast into the IVC and hepatic veins, enlarged main pulmonary artery measuring 4.5 cm., Bilateral right greater than left patchy groundglass opacities likely presenting multifocal pneumonia including COVID-pneumonia. Patient was transferred to medical ICU [facility] for hypoxic respiratory failure likely due to pulmonary hypertension. Patient was started on diuretics Lasix IVP twice daily. Who was placed on BiPAP with alternating with high flow nasal cannula. Cardiology was consulted. Repeated echo showed RVSP of 79 with very large right ventricle and right atrium. CT chest obtained which showed collapse of right middle lobe and small infiltration in the left lower lobe. Patient was started on broad-spectrum antibiotic vancomycin and cefepime. Sputum culture remains negative. Blood culture remains negative. Patient remains afebrile. VQ scan obtained which was unremarkable. Connective tissue disease work-up were sent. Cardiology consulted, right sided heart cath done on 08/02. Which showed as below. CT heart structure ordered. Patient was started on sildenafil Hemodynamic Data: RA: 11 RV: 83/9, 14 PA: 79/31 (48) PCWP: 12 O2 Sat: SVC sat: 70%, IVC sat: 73%, HRA sat: 75%, MRA sat: 81%, LRA sat: 82%, RV sat: 79%, LPA sat: 82%, RPA sat: 82%, AO sat: 90% Qp: 12.94, Qpi: 5.97, Qs: 6.13, Qsi: 2.83; Qp/Qs: 2.11 BP: 125/80 (96) TP PVR: 2.8 Wood units SUBJECTIVE No acute overnight events. Patient seen examined bedside at bedside this morning. Remains afebrile hemodynamically stable. She has no complaints today. On 9 L of oxygen via nasal cannula. (more content not included)... [facility] 08-04-2023 Note ------ Attestation signed by Isai George MD at 08/04/2023 2:22 PM I personally saw and examined the patient on the same date of service as resident/fellow Patricia Rutledge. I discussed the findings and therapeutic plan with the resident/fellow Patricia Rutledge. I agree with the documentation, except for any edits/updates below. Teaching Physician's Revisions: as above ------ Cardiology Progress Note Subjective Subjective: Daniel Lynn is feeling better today, reports improvement of her SOB, denies any Chest pain, palpitation or dizziness. Currently on HFNC. 14 L I&O : -1.3 L in last 24 hours RHC done 08/02, her PCWP was 12. Findings were suggestive of pre-capillary Pulmonary HTN. V/Q scan showed Low probability of pulmonary thromboembolism. CTA heart on 08/03/2023 showed communication between right and left atrium which favors ASD skin them, large RA RV and dilated pulmonary artery Objective Objective: Patient Vitals for the past 24 hrs: BP Temp Temp src Pulse Resp SpO2 08/04/23 1100 108/68 -- -- 81 16 -- 08/04/23 1000 110/73 -- -- 86 21 -- 08/04/23 0939 -- -- -- 88 18 95 % 08/04/23 0930 -- -- -- 83 19 -- 08/04/23 0800 112/76 36.2 ???C (97.2 ???F) Temporal 75 15 92 % 08/04/23 0708 117/60 -- -- 77 18 93 % 08/04/23 0700 -- -- -- 77 23 92 % 08/04/23 0600 122/78 -- -- 66 17 90 % 08/04/23 0500 106/73 -- -- 64 17 91 % 08/04/23 0400 106/69 36 ???C (96.8 ???F) Temporal 60 17 92 % 08/04/23 0300 108/70 -- -- 65 19 90 % 08/04/23 0200 100/58 -- -- 58 13 90 % 08/04/23 0100 100/66 -- -- 66 19 93 % 08/04/23 0000 106/63 36 ???C (96.8 ???F) Temporal 73 17 90 % 08/03/23 2305 127/71 -- -- 88 16 (!) 87 % 08/03/23 2200 122/73 -- -- 81 24 92 % 08/03/23 2100 122/70 -- -- 81 23 93 % 08/03/231999 127/77 36.6 ???C (97.9 ???F) Temporal 84 20 91 % 08/03/23 1900 117/53 -- -- 87 17 (!) 89 % 08/03/23 1800 104/78 -- -- 78 16 91 % 08/03/23 1705 -- -- -- -- -- 93 % 08/03/23 1650 -- -- -- -- -- 97 % 08/03/23 1600 105/77 -- -- 85 21 91 % 08/03/23 1536 -- 36.3 ???C (97.3 ???F) Temporal -- -- -- 08/03/23 1500 115/69 -- -- 81 20 93 % 08/03/23 1400 118/51 -- -- 85 25 94 % 08/03/23 1339 -- -- -- 85 21 98 % 08/03/23 1300 98/58 -- -- 80 17 95 % Physical Examination: GENERAL: AOx3, in no acute distress. Obese HEAD: Atraumatic, normocephalic. EYES: MEMO, EOMI. NECK: No JVD present. CARDIAC: RRR. No murmur, rubs, or gallops. RESPIRATORY: CTAB, no increased effort of breathing. ABDOMEN: Soft, nontender, nondistended. EXTREMITIES: Chronic lower limb edema +1 Relevant Lab Results No results found for this or any previous visit (from the past 4464 hour(s)). Lab Results Component Value Date TROPONINI 0.03 08/02/2023 Limited Echo (TTE) w/wo Limited Doppler, Color Flow, Imaging Agent, Strain, 3D, Bubble Study Result Date: 08/02/2023 1 1 [facility] Heart Station [address] [place], [place] [phone] (fax) Echocardiogram-[facility] Name: DANIEL LYNN Study Date: 08/02/2023 09:04 AM B/P: 121 mmHg/88 mmHg HR: 66 bpm Date of : 1975 Location: [facility] Height: 62 in. Age: 47 year(s) Patient Room: 3233 Weight: 268 lb. Gender: Female Patient Status: InPt BSA: 2.16 m2 Indication: Pulmonary HTN Examination: Limited Echo/Limited Doppler, Color flow imaging, Lumason Contrast Image Quality: Poor sound transmission due to body habitus Patient Consent: Unable to explain procedure, due to medical/mental status Conclusions Left Ventricle: The left ventricle is normal size. Global left ventricular systolic function is normal. The EF is 65 % visually. Left ventricular wall thickness is mildly increased. The septum is abnormal, consistent with RV volume and/or pressure overload. Right Ventricle: The right ventricle is severely enlarged. Severely reduced right ventricular systolic function. Doppler studies suggest severely elevated right sided pressures. Left Atrium: The left atrium appears normal in size. Tricuspid Valve: Mild-moderate tricuspid regurgitation. Great Vessels: IVC: The IVC is dilated. Overall Conclusions: Due to suboptimal imaging Lumason contrast was administered for opacification and better delineation of endocardial borders. Measurements Left Ventricle Label Value Normal Value LVEF visual 65 % LVDd, 2D 4.49 cm (3.9cm - 5.3cm) LVDs, 2D 2.77 cm (2.1cm - 4cm) IVSd, 2D 1.37 cm (0.6cm - 1.1cm) LVPWd, 2D 1.1 cm (0.6cm - 0.9cm) LV Mass, 2D ASE 205.8 g LV Mass Index, 2D ASE 95.3 g/m?? (44g/m?? - 88.4g/m??) RWT, MM 0.49 (0 - 0.42) LVSVI, 2D 29.2 ml/m2 Right Ventricle Label Value Normal Value RVDd, 2D 4.71 cm (1.9cm - 3.8cm) TAPSE 1.7 cm Tricuspid Valve Label Value Normal Value RA Pressure 15 mmHg RVSP 79 mmHg TR Vmax 4 m/s Aorta Label Value Normal Value (more content not included)... [facility] 08-04-2023 Note ------ Attestation signed by Tucker Bennett MD at 08/04/2023 4:11 PM I personally saw and examined the patient on the same date of service as resident/fellow . I discussed the findings and therapeutic plan with the resident/fellow . I agree with the documentation, except for any edits/updates below. Teaching Physician's Revisions: Severe pHTN, ruled out class 2 with normal PCWP and LV function, class 4 with neg CTA and VQ, class [address] findings in lung or consistent hx. ANSHUL/OHS not ruled out, HCO3 elevated. Will need more eval as outpatient. Class 1 pHTN working diagnosis. Reviewed echo images with severely dilated RV, ASD. Most likely Class 1 due to congenital heart disease. Started on PDEI. She should be started on triple agents, will discuss with cardio. She was told at age 14 that she has a heart defect and never received any permanent fix. She may or may not be a candidate for ASD closure, depending upon the hemodynamic with transient ASD closure. Continue diuretics. High risk patient for further decline and morbidity/mortality. ------ Medical ICU Progress Note Patient - Daniel Lynn Age - 47 y[facility] 1975 [id number] Date of Admission - 08/01/2023 1:47 AM HPI/Hospital Course Subjective 47-year-old female who presented to [facility] on 07/25 with 4 days of worsening shortness of breath and chest tightness, in the ER patient was satting 80s on room air, chest x-ray suggested bibasilar infiltrates, viral panel was +ve for Rhino virus, she was admitted for pneumonia, oxygen requirement and work of breathing had declined during her hospital stay, hence was transitioned to BiPAP and moved to the ICU. Patient has a long history of asthma, diagnosed at age of 14, no PFT in the system. ECHO revealed preserved ejection fraction, with diastolic heart failure and severely dilated right atrium and ventricles, with RVSP of 99 mmHg. Patient is being diuresed with no significant improvement on symptoms, repeat ECHO showed the same findings but RVSP was down to 76 mmHg. Cardiology has been following the patient's, who recommended transfer to [facility] for right heart cath. At [facility] Medication at [facility]: Tylenol, DuoNebs, Xanax, Lovenox for DVT prophylaxis, Lasix 40 twice daily, insulin, Solu-Medrol 40 every 8 hours, Verapamil 240 mg, azithromycin, ceftriaxone, lisinopril 10 mg. Viral panel positive for entero-/rhino, Influenza A/B negative Echo on 07/31 showed global left ventricle systolic function, ejection fraction 60 to 65%. D-shaped septum consistent with right ventricular pressure and /or volume overloaded right atrium and ventricle were severely dilated with severely reduced systolic function, grade 2 moderate diastolic dysfunction. Moderate tricuspid regurg, RVSP 76 mmHg. Echo on 07/27 showed same above findings with RVSP 99 mmHg CTA chest on 07/27 revealed no evidence of PE, right ventricular hypertrophy with reflux of contrast into the IVC and hepatic veins, enlarged main pulmonary artery measuring 4.5 cm., Bilateral right greater than left patchy groundglass opacities likely presenting multifocal pneumonia including COVID-pneumonia. Patient was transferred to medical ICU [facility] for hypoxic respiratory failure likely due to pulmonary hypertension. Patient was started on diuretics Lasix IVP twice daily. Who was placed on BiPAP with alternating with high flow nasal cannula. Cardiology was consulted. Repeated echo showed RVSP of 79 with very large right ventricle and right atrium. CT chest obtained which showed collapse of right middle lobe and small infiltration in the left lower lobe. Patient was started on broad-spectrum antibiotic vancomycin and cefepime. Sputum culture remains negative. Blood culture remains negative. Patient remains afebrile. VQ scan obtained which was unremarkable. Connective tissue disease work-up were sent. Cardiology consulted, right sided heart cath done on 08/02. Which showed as below. CT heart structure ordered. Patient was started on sildenafil Hemodynamic Data: RA: 11 RV: 83/9, 14 PA: 79/31 (48) PCWP: 12 O2 Sat: SVC sat: 70%, IVC sat: 73%, HRA sat: 75%, MRA sat: 81%, LRA sat: 82%, RV sat: 79%, LPA sat: 82%, RPA sat: 82%, AO sat: 90% Qp: 12.94, Qpi: 5.97, Qs: 6.13, Qsi: 2.83; Qp/Qs: 2.11 BP: 125/80 (96) TP PVR: 2.8 Wood units SUBJECTIVE No acute overnight events. Patient seen examined bedside at bedside this morning. Remains afebrile hemodynamically stable. She has no complaints today. On 12 L of oxygen via nasal cannula. OBJECTIVE Vitals height is 1.575 m (5' 2.01 ) and weight is 122 kg (268 lb 8.3 oz). Her temporal temperature is 36.2 ???C (97.2 ???F). Her blood pressure is 112/76 a (more content not included)... [facility] 08-03-2023 Note ------ Attestation signed by Lissette Delgado MD at 08/03/2023 3:13 PM (Updated) I personally saw and examined the patient on the same date of service as resident/fellow . I discussed the findings and therapeutic plan with the resident/fellow . I agree with the documentation, except for any edits/updates below. Teaching Physician's Revisions: Patient has high PA 79/31 pressure with wedge pressure of 12 and high cardiac output. Concern for group 1 pul HtN and a right to left shunt. CTA heart structure for further evaluation. Continue sildenafil and diuretics. Check TSH level. Further workup for Pulmonary HTN pending. ------ Medical ICU Progress Note Patient - Daniel Lynn Age - 47 y.o. - 1975 Date of Admission - 08/01/2023 1:47 AM HPI/Hospital Course Subjective 47-year-old female who presented to [facility] on 07/25 with 4 days of worsening shortness of breath and chest tightness, in the ER patient was satting 80s on room air, chest x-ray suggested bibasilar infiltrates, viral panel was +ve for Rhino virus, she was admitted for pneumonia, oxygen requirement and work of breathing had declined during her hospital stay, hence was transitioned to BiPAP and moved to the ICU. Patient has a long history of asthma, diagnosed at age of 14, no PFT in the system. ECHO revealed preserved ejection fraction, with diastolic heart failure and severely dilated right atrium and ventricles, with RVSP of 99 mmHg. Patient is being diuresed with no significant improvement on symptoms, repeat ECHO showed the same findings but RVSP was down to 76 mmHg. Cardiology has been following the patient's, who recommended transfer to [facility] for right heart cath. At [facility] Medication at [facility]: Tylenol, DuoNebs, Xanax, Lovenox for DVT prophylaxis, Lasix 40 twice daily, insulin, Solu-Medrol 40 every 8 hours, Verapamil 240 mg, azithromycin, ceftriaxone, lisinopril 10 mg. Viral panel positive for entero-/rhino, Influenza A/B negative Echo on 07/31 showed global left ventricle systolic function, ejection fraction 60 to 65%. D-shaped septum consistent with right ventricular pressure and /or volume overloaded right atrium and ventricle were severely dilated with severely reduced systolic function, grade 2 moderate diastolic dysfunction. Moderate tricuspid regurg, RVSP 76 mmHg. Echo on 07/27 showed same above findings with RVSP 99 mmHg CTA chest on 07/27 revealed no evidence of PE, right ventricular hypertrophy with reflux of contrast into the IVC and hepatic veins, enlarged main pulmonary artery measuring 4.5 cm., Bilateral right greater than left patchy groundglass opacities likely presenting multifocal pneumonia including COVID-pneumonia. Patient was transferred to medical ICU [facility] for hypoxic respiratory failure likely due to pulmonary hypertension. Patient was started on diuretics Lasix IVP twice daily. Who was placed on BiPAP with alternating with high flow nasal cannula. Cardiology was consulted. Repeated echo showed RVSP of 79 with very large right ventricle and right atrium. CT chest obtained which showed collapse of right middle lobe and small infiltration in the left lower lobe. Patient was started on broad-spectrum antibiotic vancomycin and cefepime. Sputum culture remains negative. Blood culture remains negative. Patient remains afebrile. VQ scan obtained which was unremarkable. Connective tissue disease work-up were sent. Cardiology consulted, right sided heart cath done on 08/02. Which showed as below. CT heart structure ordered. Patient was started on sildenafil Hemodynamic Data: RA: 11 RV: 83/9, 14 PA: 79/31 (48) PCWP: 12 O2 Sat: SVC sat: 70%, IVC sat: 73%, HRA sat: 75%, MRA sat: 81%, LRA sat: 82%, RV sat: 79%, LPA sat: 82%, RPA sat: 82%, AO sat: 90% Qp: 12.94, Qpi: 5.97, Qs: 6.13, Qsi: 2.83; Qp/Qs: 2.11 BP: 125/80 (96) TP PVR: 2.8 Wood units SUBJECTIVE Patient seen examined bedside. Remains afebrile hemodynamically stable. On high flow nasal cannula 90%, 40 L. OBJECTIVE Vitals height is 1.575 m (5' 2.01 ) and weight is 122 kg (268 lb 8.3 oz). Her temporal temperature is 36.4 ???C (97.5 ???F). Her blood pressure is 103/67 and her pulse is 79. Her respiration is 15 and oxygen saturation is 90%. Temp: [36.2 ???C (97.2 ???F)-36.8 ???C (98.2 ???F)] 36.4 ???C (97.5 ???F) Heart Rate: [61-101] 79 Resp: [14-22] 15 BP: (87-141)/(47-94) 103/67 FiO2 (%): [80 %-100 %] 100 % Physical Exam: General: Obese, alert and oriented x3, on Bipap machine HEENT: Atraumatic, normocephalic, PERRLA Neck: Supple neck. Respiratory: Decrease breath sounds bilaterally Heart: Regular rhythm, no murmur, no rub. Neurology: Can move all extremities, (more content not included)... [facility] 08-03-2023 Note ------ Attestation signed by Db Hicks MD at 08/07/2023 9:53 AM By using the attestations below, the signing clinician agrees that I have read and verify that the documentation has been personally reviewed by me and ensure that the documentation accurately reflects the encounter. GC: I personally saw this patient on the day of the encounter, performed the askew portion(s) of the service and participated in the management and confirm the resident's documentation. Please note there may be an additional personal documentation from me. Await CMR ------ Cardiology Progress Note Subjective Subjective: Daniel Lynn is feeling better today, reports improvement of her SOB, denies any Chest pain, palpitation or dizziness. Currently on HFNC. I&O : around 1 L in the last 24 h Net negative 700 ml . RHC done yesterday, her PCWP was 12. Findings were suggestive of pre-capillary Pulmonary HTN. V/Q scan showed Low probability of pulmonary thromboembolism. Objective Objective: Patient Vitals for the past 24 hrs: BP Temp Temp src Pulse Resp SpO2 08/03/23 0704 105/54 -- -- 69 20 95 % 08/03/23 0700 -- -- -- 75 21 95 % 08/03/23 0600 102/65 -- -- 63 19 93 % 08/03/23 0530 100/63 -- -- 64 16 91 % 08/03/23 0500 97/60 -- -- 62 18 92 % 08/03/23 0444 -- -- -- -- -- 91 % 08/03/23 0430 95/65 -- -- 61 15 91 % 08/03/23 0400 100/61 36.5 ???C (97.7 ???F) -- 65 17 90 % 08/03/23 0300 101/62 -- -- 67 21 91 % 08/03/23 0230 96/54 -- -- 69 17 90 % 08/03/23 0200 87/59 -- -- 62 18 91 % 08/03/23 0150 -- -- -- 65 21 90 % 08/03/23 0103 (!) 91/47 -- -- 73 16 (!) 88 % 08/03/23 0100 88/56 -- -- 66 17 (!) 86 % 08/03/23 0000 101/60 36.4 ???C (97.5 ???F) -- 79 21 (!) 88 % 08/02/232310 -- -- -- -- -- 92 % 08/02/23 2300 99/67 -- -- 90 22 96 % 08/02/23 2200 108/63 -- -- 83 14 93 % 08/02/23 2100 113/71 -- -- 88 16 97 % 08/02/232005 -- -- -- 95 20 91 % 08/02/23 2000 119/74 36.6 ???C (97.9 ???F) -- 97 -- 91 % 08/02/23 1900 141/82 -- -- 101 19 92 % 08/02/23 1850 -- -- -- -- -- 93 % 08/02/23 1800 127/84 -- -- 82 19 92 % 08/02/23 1757 -- -- -- -- -- 92 % 08/02/23 1737 112/68 -- -- 79 16 92 % 08/02/23 1629 -- -- -- -- -- 90 % 08/02/23 1629 132/76 -- -- 82 16 90 % 08/02/23 1600 (!) 112/94 36.8 ???C (98.2 ???F) -- 80 15 96 % 08/02/23 1500 120/76 -- -- 79 -- 94 % 08/02/23 1458 -- -- -- 75 20 92 % 08/02/23 1422 119/85 -- -- 80 20 92 % 08/02/23 1304 -- -- -- -- -- 92 % 08/02/23 1300 129/79 -- -- 74 18 94 % 08/02/23 1200 123/82 -- -- 65 17 90 % 08/02/23 1144 -- -- -- -- -- 91 % 08/02/23 1140 -- 36.4 ???C (97.6 ???F) -- -- -- -- 08/02/23 1100 129/86 -- -- 68 17 93 % 08/02/23 1049 -- -- -- 78 21 95 % 08/02/23 1040 -- -- -- 69 18 (!) 88 % 08/02/23 1030 -- -- -- 69 20 (!) 88 % 08/02/23 1000 121/88 -- -- 75 19 91 % 08/02/23 0955 -- -- -- 77 17 92 % 08/02/23 0950 -- -- -- 71 17 (!) 87 % 08/02/23 0945 -- -- -- 70 17 (!) 86 % 08/02/23 0940 -- -- -- 80 24 (!) 87 % 08/02/23 0935 -- -- -- 81 (!) 27 90 % 08/02/23 0930 -- -- -- 72 (!) 35 90 % 08/02/23 0925 -- -- -- 71 18 92 % 08/02/23 0900 116/79 -- -- 71 20 92 % 08/02/23 0800 116/84 36.6 ???C (97.9 ???F) Axillary 82 26 93 % Physical Examination: GENERAL: AOx3, in no acute distress. Obese HEAD: Atraumatic, normocephalic. EYES: MEMO, EOMI. NECK: No JVD present. CARDIAC: RRR. No murmur, rubs, or gallops. RESPIRATORY: CTAB, no increased effort of breathing. ABDOMEN: Soft, nontender, nondistended. EXTREMITIES: Chronic lower limb edema +1 Relevant Lab Results No results found for this or any previous visit (from the past 4464 hour(s)). Lab Results Component Value Date TROPONINI 0.03 08/02/2023 Limited Echo (TTE) w/wo Limited Doppler, Color Flow, Imaging Agent, Strain, 3D, Bubble Study Result Date: 08/02/2023 1 1 [facility] Heart Station [address] [place] [address] [phone] (fax) Echocardiogram-[facility] Name: DANIEL LYNN Study Date: 08/02/2023 09:04 AM B/P: 121 mmHg/88 mmHg HR: 66 bpm Date of : 1975 Location: [facility] Height: 62 in. Age: 47 year(s) Patient Room: 3233 Weight: 268 lb. Gender: Female Patient Status: InPt BSA: 2.16 m2 Indication: Pulmonary HTN Examination: Limited Echo/Limited Doppler, Color flow imaging, Lumason Contrast Image Quality: Poor sound transmission due to body habitus Patient Consent: Unable to explain procedure, due to medical/mental status Conclusions Left Ventricle: The left ventricle is normal size. Global left ventricular systolic function is normal. The EF is 65 % visually. Left ventricular wall thickness is mildly increased. The septum is abnormal, consistent with RV volume and/or pressure overload. Right Ventricle: The right ventricle is severely enlarged. Se (more content not included)... [facility] 08-02-2023 Note Patient: Daniel rizvi Procedure Information Date/Time: 08/02/23 1610 Procedure: Right heart cath Location: [facility] FIELD CONTACT PERSON 3 / [facility] (Cath) Providers: Chris Roger MD Clinical information reviewed: Allergies Meds Physical Exam Airway Mallampati: III Cardiovascular Rhythm: regular Rate: normal Dental Pulmonary (+) decreased breath sounds Abdominal Anesthesia Plan ASA 3 other (Moderate sedation) Anesthetic plan and risks discussed with patient. Use of blood products discussed with patient who consented to blood products. Plan discussed with fellow and attending. Additional Equipment Requests [facility] 08-02-2023 Note Pharmacy Dosing Serv ice - Vancomycin Initial Consult Note Pharmacy has been consulted for the dosing and evaluation of Drug: Vancomycin Indication: pneumonia AUC 400-600 mg*hr/L and trough 10-20 mcg/mL Other Antimicrobial Regimens: cefepime 2g q8h Labs and Renal Function Total body weight: 122 kg (268 lb 8.3 oz) [place] body weight: 50.1 kg (110 lb 7.9 oz) Adjusted ideal body weight: 78.8 kg (173 lb 11.2 oz) Body mass index is 49.1 kg/m???. Lab Results Component Value Date WBC 12.17 (H) 08/02/2023 WBC 9.50 08/01/2023 Lab Results Component Value Date BUN 29 (H) 08/02/2023 BUN 27 (H) 08/01/2023 CREATININE 0.70 08/02/2023 CREATININE 0.60 08/01/2023 CrCl or renal function: 123.8ml/min *capping at 100 mL/min due to age* I/O: intake 481ml, output 3350ml, net -2869ml on 08/01 Estimated Pharmacokinetic Parameters: Weight used to calculate CrCl and Ke: adjusted body weight (due to obesity) Pharmacokinetic Parameters: Vd: 67.1 L Ke: 0.087 hr -1 T1/2: 7.9 hr Microbiology: -08/01 blood cultures NGTD -08/01 sputum culture >25 squamous epithelial cells per LPF -MRSA Nares ordered? Yes, pending Assessment / Comments: - 47yoF transferred to [facility] from OSH and admitted to ICU 08/01 for acute hypoxic respiratory failure likely due to severe pulmonary hypertension and potential pneumonia. Viral panel at OSH positive for rhinovirus. Procal upon admission to [facility] 0.03. WBC increased from 9.5 to 12.17. Patient is being followed by MICU pharmacist, will recommend to de-escalate or discontinue when appropriate. -Current risk factors for nephrotoxicity: Concomitant diuretics (furosemide 40mg PO BID and acetazolamide 500mg) -Comments on renal function / baseline serum creatinine: At baseline *capped CrCl at 100 mL/min* -Recent vancomycin history: No Plan: -Start vancomycin 1750 mg once, followed by vancomycin 1500 mg every 12 hours for a predicted AUC of 511.5 mg*hr/L and trough of 12.1 mcg/mL -Plan to check serum peak and trough levels at steady state -Check BUN/SCr daily -Pharmacy will follow up daily on culture and sensitivity results and renal function -Please do not hesitate to contact us with comments or questions Thank you, Nakia Warnerell, 08/02/23 Plan discussed with Betsy Eckert PharmD [facility] 08-02-2023 Note ------ Attestation signed by Db Hicks MD at 08/02/2023 4:25 PM By using the attestations below, the signing clinician agrees that I have read and verify that the documentation has been personally reviewed by me and ensure that the documentation accurately reflects the encounter. GC: I personally saw this patient on the day of the encounter, performed the askew portion(s) of the service and participated in the management and confirm the resident's documentation. Please note there may be an additional personal documentation from me. Plan for RHC today ------ Cardiology Progress Note Subjective Subjective: Daniel Lynn is doing as same as yesterday, still having SOB, no Chest pain, palpitation or dizziness. Currently alternating between BiPAP / HFNC. I&O : around 3.2 L in the last 24 h Objective Objective: Patient Vitals for the past 24 hrs: BP Temp Pulse Resp SpO2 Weight 08/02/23 0753 -- -- 66 20 92 % -- 08/02/23 0700 115/73 -- 69 18 92 % -- 08/02/23 0600 105/69 -- 59 16 92 % 122 kg (268 lb 8.3 oz) 08/02/23 0500 109/71 -- 59 14 90 % -- 08/02/23 0400 117/63 36.2 ???C (97.2 ???F) 66 17 93 % -- 08/02/23 0321 -- -- -- -- 90 % -- 08/02/23 0300 110/74 -- 62 18 93 % -- 08/02/23 0200 115/80 -- 65 20 92 % -- 08/02/23 0150 -- -- 63 16 93 % -- 08/02/23 0100 124/74 -- 64 20 94 % -- 08/02/23 0000 105/66 36.4 ???C (97.5 ???F) 59 19 94 % -- 08/01/23 2303 112/67 -- 69 20 (!) 87 % -- 08/01/23 2300 -- -- 69 21 (!) 86 % -- 08/01/23 2222 -- -- -- -- 93 % -- 08/01/23 2200 125/65 -- 73 15 95 % -- 08/01/23 2100 103/78 -- 74 14 95 % -- 08/01/232008 -- -- 71 18 94 % -- 08/01/23 2000 105/81 36.3 ???C (97.3 ???F) 73 15 93 % -- 08/01/23 1900 (!) 110/91 -- 78 23 93 % -- 08/01/23 1800 (!) 123/95 -- 78 16 92 % -- 08/01/23 1700 117/89 -- 73 13 94 % -- 08/01/23 1600 118/81 36.3 ???C (97.3 ???F) 78 -- 94 % -- 08/01/23 1500 119/77 -- 81 -- 97 % -- 08/01/23 1400 91/52 -- 92 18 92 % -- 08/01/23 1300 122/80 36.3 ???C (97.3 ???F) 79 19 95 % -- 08/01/23 1200 119/70 36.2 ???C (97.2 ???F) 76 16 96 % -- 08/01/23 1115 -- -- -- -- 94 % -- 08/01/23 1100 122/82 36.2 ???C (97.2 ???F) 87 (!) 39 94 % -- 08/01/23 1000 123/79 36.5 ???C (97.7 ???F) 86 17 94 % -- 08/01/23 0900 124/82 36.5 ???C (97.7 ???F) 85 22 94 % -- Physical Examination: GENERAL: AOx3, in no acute distress. Obese HEAD: Atraumatic, normocephalic. EYES: MEMO, EOMI. NECK: No JVD present. CARDIAC: RRR. No murmur, rubs, or gallops. RESPIRATORY: CTAB, no increased effort of breathing. ABDOMEN: Soft, nontender, nondistended. EXTREMITIES: Chronic lower limb edema +1 Relevant Lab Results No results found for this or any previous visit (from the past 4464 hour(s)). Lab Results Component Value Date TROPONINI 0.02 08/01/2023 No echocardiogram results found for the past 12 months No nuclear medicine results found for the past 12 months Relevant Imaging Results XR chest 1 view Narrative: XR CHEST 1 VIEW 08/01/2023 2:36 AM CLINICAL INDICATIONS: Shortness of breath COMPARISON: 07/25/2023 FINDINGS: Shortness of breath. Cardiac silhouette is mildly enlarged. Bilateral hilar congestion lungs and costophrenic recesses are clear. Trachea is in the midline. Bony skeleton appears intact. Impression: Mild congestive heart failure. No chapis pulmonary edema or pneumothorax. Electronically signed: Nir Ibarra. Assessment: Acute hypoxic respiratory failure, likely due to Pulmonary Hypertension + Rhinovirus infection/pneumonia Severe Pulmonary hypertension, suspect group 1 vs 3 Acute viral pneumonia secondary to rhinovirus Type 2 Diabetes History of Asthma Morbid obesity BMI of 51.7 Plan: Planing for right heart cath today, Limitation will be if the patient is able to lay flat for the procedure. Diuresis per primary team. Will follow up on Echo & V/Q scan. Cardiology will follow along. Neva Portillo MD PGY-2 Internal Medicine Resident [facility] 08-02-2023 Note ------ Attestation signed by Lissette Delgado MD at 08/02/2023 4:23 PM I personally saw and examined the patient on the same date of service as resident/fellow . I discussed the findings and therapeutic plan with the resident/fellow . I agree with the documentation, except for any edits/updates below. Teaching Physician's Revisions: Noted to have multifocal opacities in both lungs which are improving. Very dilated pul artery noted on CT scan. Plan to get RH cath today. Hypoxic respiratory failure in the setting of Pulmonary hypertension and primary lung disease. Continue antibiotics and diuretics. Discussed with cardiology. ------ Medical ICU Progress Note Patient - Daniel Lynn Age - 47 [facility] 1975 [id number] Date of Admission - 08/01/2023 1:47 AM SUBJECTIVE Patient seen side. Tenderness over the hemodynamically stable. On BiPAP 80% FiO2 maintaining saturation 94%. Remains on Lasix twice daily with negative balance -3.6 since admission. Patient continues to complain of shortness of breath. OBJECTIVE Vitals height is 1.575 m (5' 2.01 ) and weight is 122 kg (268 lb 8.3 oz). Her temperature is 36.2 ???C (97.2 ???F). Her blood pressure is 115/73 and her pulse is 66. Her respiration is 20 and oxygen saturation is 92%. Temp: [36.2 ???C (97.2 ???F)-36.5 ???C (97.7 ???F)] 36.2 ???C (97.2 ???F) Heart Rate: [59-92] 66 Resp: [13-39] 20 BP: (91-125)/(52-95) 115/73 FiO2 (%): [70 %-100 %] 90 % Physical Exam: General: Obese, alert and oriented x3, on Bipap machine HEENT: Atraumatic, normocephalic, PERRLA Neck: Supple neck. Respiratory: clear breath sounds bilaterally Heart: Regular rhythm, no murmur, no rub. Neurology: Can move all extremities, no focal deficit. Abdomen: Soft, distended, not tender Extremities: Bilateral leg edema Skin: Warm and dry. Weight: Admission weight: 127 kg (280 lb 3.3 oz) Wt Readings from Last 1 Encounters: 08/02/23 122 kg (268 lb 8.3 oz) Input/Output: Intake/Output Summary (Last 24 hours) at 08/02/2023 0811 Last data filed at 08/02/2023 0630 Gross per 24 hour Intake 481 ml Output 2350 ml Net -1869 ml Ventilator: Settings FiO2 (%): 90 % Heater Temperature: 33.8 ???C (92.8 ???F) FiO2 (%): [70 %-100 %] 90 % Lab Results ABG: pH, Arterial Date Value Ref Range Status 08/01/2023 7.53 (H) 7.35 - 7.45 pH Final pCO2, Arterial Date Value Ref Range Status 08/01/2023 58 (HH) 35 - 48 mmHg Final pO2, Arterial Date Value Ref Range Status 08/01/2023 66 (L) 83 - 100 mmHg Final HCO3, Arterial Date Value Ref Range Status 08/01/2023 48.5 (H) 21.0 - 28.0 mEq/L Final No results found for: PHVEN, FZF4SYW, PO2VEN, PFJ5PMO, IONCALVEN CBC: Results from last 7 days Lab Units 08/01/23 0242 WBC AUTO 10*3/uL 9.50 HEMOGLOBIN g/dL 17.9* HEMATOCRIT % 54.1* PLATELETS AUTO 10*3/uL 265 Coagulation: Results from last 7 days Lab Units 08/01/23 0242 APTT Seconds 24.1* INR 1.10 Metabolic Panel: Results from last 7 days Lab Units 08/01/23 0242 SODIUM mmol/L 136 POTASSIUM mmol/L 3.5 CHLORIDE mmol/L 90* CO2 mmol/L 40* BUN mg/dL 27* CREATININE mg/dL 0.60 GLUCOSE mg/dL 280* CALCIUM mg/dL 9.0 PHOSPHORUS mg/dL 3.8 MAGNESIUM mg/dL 1.9 Liver Panel: Results from last 7 days Lab Units 08/01/23 0242 ALBUMIN g/dL 3.5 BILIRUBIN TOTAL mg/dL 0.9 ALT U/L 10 AST U/L 8* ALK PHOS U/L 54 Glucose: Hgb A1c: Cardiac: Results from last 7 days Lab Units 08/01/23 0242 TROPONIN I ng/mL 0.02 BNP pg/mL 145* Anemia Labs: Lipid Panel: No lab exists for component: CHOLHDL Urine Labs: No results found for: WBCU, UROBILINOGEN Additional Labs: No lab exists for component: LACTICACID, PROCALCITON Radiology XR chest 1 view Narrative: XR CHEST 1 VIEW 08/01/2023 2:36 AM CLINICAL INDICATIONS: Shortness of breath COMPARISON: 07/25/2023 FINDINGS: Shortness of breath. Cardiac silhouette is mildly enlarged. Bilateral hilar congestion lungs and costophrenic recesses are clear. Trachea is in the midline. Bony skeleton appears intact. Impression: Mild congestive heart failure. No chapis pulmonary edema or pneumothorax. Electronically signed: Nir Ibarra. Cultures Lab Results Component Value Date BLOOD CULTURE No growth at 18-24 hours 08/01/2023 Medications Scheduled: acetaZOLAMIDE, 500 mg, intravenous, Once furosemide, 40 mg, oral, Daily heparin (porcine), 5,000 Units, subcutaneous, TID insulin aspart, 0-20 Units, subcutaneous, q6h insulin detemir, 20 Units, subcutaneous, Nightly ipratropium-albuteroL, 3 mL, nebulization, q6h while awake methylPREDNISolone sod suc (PF), 40 mg, intravenous, q12h Oxygen Therapy, , inhalation, Continuous pantoprazole, 40 mg, intravenous, q24h AYALA Infusions: As Need (more content not included)... [facility] Summary Purpose Family History No Family History Records FoundNo Family History Records Found Advance Directives No Advanced Directives Records FoundDocuments on File Type Date Recorded Patient Desktop Manager Expl anation Advance Directives and Living Will Power of Binder Stripper Hand Additional Source Comments INFORMATION SOURCE (unrecogn ized section and content) DATE CREATED AUTHOR 04/18/2020 Adelaida landa DATE CREATED AUTHOR AUTHOR'S ORGANIZ ATION 08/31/2023 [facility] FOR RECORDS PERTAINING TO PATIENTS WHO ARE OR HAVE BEEN ENROLLED IN A CHEMICAL DEPENDENCY/SUBSTANCEABUSE PROGRAM, SOME INFORMATION MAY BE OMITTED. This clinical summary was aggregated from multiple sources. Caution should be exercised in using it in the provision of clinical care. This summary normalizes information from multiple sources, and as a consequence, information in this document may materially change the coding, format and clinical context of patient data. In addition, data may be omitted in some cases. CLINICAL DECISIONS SHOULD BE BASED ON THE PRIMARY CLINICAL RECORDS. [employer] provides no warranty or guarantee of the accuracy or completeness of information in this document.
== END 2023-08-01 00:30 | disposition short-term general hospital (02) | DRG 291 ==
LOC: ER 16:11 → MS 16:11 → ICU 18:22
PROVIDERS: Internal Medicine; Admitting Provider Internal Medicine; Emergency Provider Emergency Medicine; Visit Provider Family Medicine
DX: I11.0 Hypertensive heart disease with heart failure (principal); J96.01 Acute respiratory failure with hypoxia; J96.02 Acute respiratory failure with hypercapnia; J44.1 Chronic obstructive pulmonary disease with (acute) exacerbation; B37.0 Candidal stomatitis; J45.901 Unspecified asthma with (acute) exacerbation; I50.813 Acute on chronic right heart failure; B97.89 Other viral agents as the cause of diseases classified elsewhere; I07.1 Rheumatic tricuspid insufficiency; E11.9 Type 2 diabetes mellitus without complications; Z83.6 Family history of other diseases of the respiratory system; Z82.49 Family history of ischemic heart disease and other diseases of the circulatory system; Z83.3 Family history of diabetes mellitus; Z88.0 Allergy status to penicillin; Z88.2 Allergy status to sulfonamides; Z79.899 Other long term (current) drug therapy; Z87.891 Personal history of nicotine dependence
CPT/HCPCS: 0202U; 36415; 36600; 71045; 71275; 80048; 80053; 82805; 82948; 83036; 83605; 83735; 83880; 85025; 85378; 87040; 87635; 87811; 90674; 93005; 93306; 94640; 94660; 94667; 94668; 94761; 94799; 96365; 96366; 96367; 96372; 96375; 96376; 97110; 97530; 99285; G0008; J0456; J2920; J2930; Q9967

== ENCOUNTER 2023-10-03 19:54 | Outpatient (OUT) | payer OTHER, SELFPAY ==
--- OUTSIDE RECORDS SUMMARY | 2023-10-03 19:56 | XMS_ITS | CCD ---
Author Name Unknown Address [address] [place] [address] Organization [facility] Care Team Providers Care Production Machinist Name Role Phone BRANDIE PACHECO Referring Unavailable FAVIO SANTIAGO Primary Care Unavailable Favio Santiago Primary Care Provider CHRIS ROGER Referring Unavailable MOCHRIS MONTENEGRO Attending Unavailable ALI, MCLAUGHLINASHLEY PEREZ Referring Unavailable ALI, LISSETTE PEREZ Referring Unavailable ALI, LISSETTE PEREZ Referring Unavailable AMERICO, CARLEY Referring Unavailable ARAUJO, VENTURA Referring Unavailable DAVEY, OLMAN Referring Unavailable ALI, MCLAUGHLIN ANA Admitting Unavailable ALI, MCLAUGHLIN ANA Consulting Unavailable AMERICOCARLEY Attending Unavailable GILBERTKVNG Consulting Unavailable DB HICKS Referring Unavailable MOUKARBELCHRIS Admitting Unavailable MOUKARBEL, CHRIS Attending Unavailable ALI, MCLAUGHLIN ANA Referring Unavailable MOUKARBEL, CHRIS Referring Unavailable ALI, MCLAUGHLIN ANA Referring Unavailable ALI, MCLAUGHLINASHLEY PEREZ Referring Unavailable Allergies Allergy Classification Reported Allergen(s) Allergy Type Date of Onset Reaction(s) Facility (1 source) Lisinopril; Translations: [LISINOPRIL] Drug Allergy 08-01-20 [facility] Repository (1 source) Penicillins; Translations: [PENICILLINS] Propensity to adverse reactions to drug (disorder) 08-01-20 [facility] Repository (1 source) Sulfamethoxazole / Trimethoprim; Translations: [SULFAMETHOXAZOLE-TR IMETHOPRIM] Drug Allergy 08-01-20 [facility] Repository Problems Active Problems Problem Classification Problem Date Documented Da te Episodic/Chronic Cardiac and circulatory congenital anomalies (2 sources) Congenital malformation of heart, unspecified; Translations: [Congenital malformation of heart, unspecified] Onset: 08-30-2023 Chronic Other lower respiratory disease (2 sources) Hypoxemia; Translations: [Hypoxemia] Onset: 08-28-2023 Episodic Other lower respiratory disease (2 sources) Other forms of dyspnea; Translations: [Other forms of dyspnea] Onset: 08-01-2023 Episodic Pulmonary heart disease (4 sources) Other secondary pulmonary hypertension; Translations: [Pulmonary hypertension, unspecified] Onset: 08-01-2023 Chronic Unclassified (1 source) Atrial septal defect, unspecified; Translations: [Atrial septal defect, unspecified] Onset: 08-30-2023 Unclassified (1 source) Secundum atrial septal defect; Translations: [Secundum atrial septal defect] Onset: 08-28-2023 Past or Other Problems Problem Classification Problem Date Documented Da te Episodic/Chronic Unclassified (1 source) Atrial septal defect, unspecified; Translations: [Atrial septal defect, unspecified] Onset: 09-04-2023 Unclassified (1 source) Secundum atrial septal defect; Translations: [Secundum atrial septal defect] Onset: 08-28-2023 Results Test Name Value Interpretation Reference Range Facility Prep for Procedureon 024 Prep for Procedure [id number] Shelly Lynn 1975 F Date Provider Department Center 09/25/[address] No family history on file Normal [facility] Prep for Procedureon 023 Prep for Procedure [id number] Shelly Lynn 1975 F Date Provider Department Center 08/30/2023 CHRIS CANNON [facility] LAXMI Espinosa Count No family history on file Normal [facility] Office Visiton 08-28-2023 Follow-up visit [id number] Shelly Lynn 1975 F Date Provider Department Center 08/28/2023 CHRIS CANNON [facility] No family history on file Level of Service:[address] [place] OFFICE/OUTPATIENT ESTABLISHED HIGH MDM 40-54 MIN Normal [facility] 30on 08-09-2023 30 Sweet Pickled Fruit Maker received VM f or patient stating she needs assistance with the medications she was discharged with. Sweet Pickled Fruit Maker reached out to patient who states that her INS will only cover 1/2 pill of Sildenafil per day. Patient continues to explain that she paid OOP for her first prescription of Sildenafil, but that she needs her Orange Picking Supervisor to reach out to INS to discuss this and have it resolved, she reports that she plans to call Dr. Felder's office Sunday to have them assist. No other needs voiced at this time, medical underwriter urged patient to call OTM line next week if she has any further issues with her medications. Normal [facility] 30 Problem: Pain - Adul t Goal: Verbalizes/displays adequate comfort level or baseline comfort level Outcome: Progressing Flowsheets (Taken 08/09/2023812) Verbalizes/displays adequate comfort level or baseline comfort [...] and behaviors that affect risk of falls [place] fall precautions as indicated by assessment Educate [...] mucous memb (more content not included)... Normal [facility] BASIC METABOLIC PANELon 11-2 Anion gap [Moles/Vol] 9 mmol/L Normal 7-20 [facility] Comment on above: Performed By: #### L [id number] #### [facility] ([facility]) [address] [place] [address] Calcium [Mass/Vol] 8.7 mg/dL Normal 8.6-10.3 [facility] Comment on above: Performed By: #### L [id number] #### [facility] ([facility]) [address] [place] [address] Chloride [Moles/Vol] 100 mmol/L Normal 98-107 [facility] Comment on above: Performed By: #### L [id number] #### [facility] ([facility]) [address] [place] [address] CO2 [Moles/Vol] 30 mmol/L Normal 21-31 [facility] Comment on above: Performed By: #### L [id number] #### [facility] ([facility]) [address] [place] [address] Creatinine [Mass/Vol] 0.42 mg/dL Low 0.60-1.20 [facility] Comment on above: Performed By: #### L [id number] #### [facility] ([facility]) [address] [place] [address] GLOMERULAR FILTRATION RATE ML/MIN/1.73 SQ M.PREDICTED 121.3 mL/min/1.73m*2 Normal >60.0 [facility] Comment on above: Result Comment: The [facility]???s estimated glomerular filtration rate (eGFR) will no [...] individuals. Performed By: #### L [id number] #### [facility] [address] [place] [address] Glucose [Mass/Vol] 146 mg/dL High 70-100 [facility] Comment on above: Performed By: #### L [id number] #### [facility] ([facility]) [address] [place] [address] Potassium [Moles/Vol] 3.7 mmol/L Normal 3.5-5.1 [facility] Comment on above: Performed By: #### L [id number] #### [facility] ([facility]) [address] [place] [address] Sodium [Moles/Vol] 135 mmol/L Low 136-145 [facility] Comment on above: Performed By: #### L [id number] #### [facility] ([facility]) [address] [place] [address] Urea nitrogen [Mass/Vol] 17 mg/dL Normal 7-25 [facility] Comment on above: Performed By: #### L [id number] #### [facility] ([facility]) [address] [place] [address] UREA NITROGEN/CREATININE (MASS RATIO) IN SER/PLAS 40.5 Normal [facility] Comment on above: Performed By: #### L [id number] #### [facility] ([facility]) [address] [place] [address] CBCon 08-09-2023 Erythrocyte distribution width (RBC) [Ratio] 13.1 % Normal 11.5-15.0 [facility] Comment on above: Performed By: #### L [id number] #### [facility] ([facility]) [address] [place] [address] ERYTHROCYTE MEAN CORPUSCULAR HEMOGLOBIN CONCENTRATION (G/DL) BY AUTOMATED 32.6 g/dL Normal 32.0-35.0 [place] Comment on above: Performed By: #### L [id number] #### [facility] [address] [place] [address] Hematocrit (Bld) [Volume fraction] 43.5 % Normal 36.0-48.0 [facility] Comment on above: Performed By: #### L [id number] #### [facility] ([facility]) [address] [place] [address] Hemoglobin (Bld) [Mass/Vol] 14.2 g/dL Normal 12.0-15.0 [facility] Comment on above: Performed By: #### L [id number] #### [facility] ([facility]) [address] [place] [address] MCH (RBC) [Entitic mass] 30.3 pg Normal 27.0-33.0 [facility] Comment on above: Performed By: #### L [id number] #### [facility] ([facility]) [address] [place] [address] MCV (RBC) [Entitic vol] 92.9 fL Normal 82.0-98.0 [facility] Comment on above: Performed By: #### L [id number] #### [facility] ([facility]) [address] [place] [address] PLATELETS (10*3/UL) IN BLOOD AUTOMATED COUNT 178 10*3/uL Normal 150-400 [facility] Comment on above: Performed By: #### L [id number] #### [facility] ([facility]) [address] [place] [address] RBC (Bld) [#/Vol] 4.68 10*6/uL Normal 3.80-5.00 [facility] Comment on above: Performed By: #### L [id number] #### [facility] ([facility]) [address] [place] [address] WBC (Bld) [#/Vol] 7.40 10*3/uL Normal 4.00-10.60 [facility] Comment on above: Performed By: #### L [id number] #### [facility] ([facility]) [address] [place] [address] MAGNESIUMon 08-09-2023 Magnesium [Mass/Vol] 1.7 mg/dL Low 1.9-2.7 [facility] Comment on above: Performed By: #### L [id number] #### [facility] ([facility]) [address] [place] [address] NURSNOTEon 08-09-2023 NURSNOTE Discharge paperwork reviewed with pt; copy of paperwork given to pt. Reviewed new medications with pt. Pt expresses understanding of instructions. Pt currently waiting on family for ride home. Normal [facility] PHOSPHORUSon 08-09-2023 Magnesium [Mass/Vol] 4.3 mg/dL Normal 2.5-5.0 [facility] Comment on above: Performed By: #### L [id number] #### [facility] ([facility]) [address] [place] [address] POCT GLUCOSE METER UNSOLICIT ED RESULTSon 08-09-2023 Glucose [Mass/Vol] 151 mg/dL High 70-105 [facility] Comment on above: Order Comment: Waive d Testing in the ED is performed under the ED CLIA certificate #[id number]. Result Comment: [email or web address] Performed By: #### L [id number] #### [facility] ([facility]) [address] [place] [address] Glucose [Mass/Vol] 124 mg/dL High 70-105 [facility] Comment on above: Order Comment: Waive d Testing in the ED is performed under the ED CLIA certificate #[id number]. Result Comment: [email or web address] Performed By: #### L [id number] #### [facility] ([facility]) [address] [place] [address] 30on 08-08-2023 30 The patient is Moder ately Stable - Low risk of patient condition declining or worsening The patient's goals for the shift include comfort The clinical goals for the shift include VSS Problem: Pain - Adult Goal: Verbalizes/displays adequate comfort level or baseline comfort level Outcome: Progressing Flowsheets (Taken 08/08/2023 0719 by Leti Jaeger RN) Verbalizes/displays adequate comfort level or baseline comfort level: Encourage patient to monitor pain and request assistance Assess pain using appropriate pain scale Problem: Safety - Adult Goal: Free from fall injury Outcome: Progressing Flowsheets (Taken 08/08/2023718 by Leti Jaeger RN) Free from fall injury: Assess patient frequently for physical needs Consider OT/PT consult to assist with strengthening/mobility [place] fall precautions as indicated by assessment Educate [...] maintained or improved Outcome: Progressing Flowsheets (Taken 08/08/2023718 by Leti Jaeger RN) Care Plan - Patient's Chronic Conditions and Co-Morbidity Symptoms are Monitored and Maintained or Improved: Monitor and assess patient's chronic conditions and comorbid symptoms for stability, deterioration, or improvement Normal [facility] 30 The patient is Moder ately Stable [...] functionality and self care Outcome: Progressing Normal [facility] BASIC METABOLIC PANELon 07-19 Anion gap [Moles/Vol] 7 mmol/L Normal - [facility] Comment on above: Performed By: #### L [id number] #### [facility] ([facility]) [address] [place] [address] Calcium [Mass/Vol] 8.5 mg/dL Low 8.6-10.3 [facility] Comment on above: Performed By: #### L [id number] #### [facility] ([facility]) [address] [place] [address] Chloride [Moles/Vol] 102 mmol/L Normal 98-107 [facility] Comment on above: Performed By: #### L [id number] #### [facility] [address] [place] [address] CO2 [Moles/Vol] 30 mmol/L Normal 21-31 [facility] Comment on above: Performed By: #### L [id number] #### [facility] ([facility]) [address] [place] [address] Creatinine [Mass/Vol] 0.60 mg/dL Normal 0.60-1.20 [facility] Comment on above: Performed By: #### L [id number] #### [facility] ([facility]) [address] [place] [address] GLOMERULAR FILTRATION RATE ML/MIN/1.73 SQ M.PREDICTED 111.3 mL/min/1.73m*2 Normal >60.0 [facility] Comment on above: Result Comment: The [facility]???s estimated glomerular filtration rate (eGFR) will no [...] individuals. Performed By: #### L [id number] #### [facility] ([facility] [address] [place] [address] Glucose [Mass/Vol] 145 mg/dL High 70-100 [facility] Comment on above: Performed By: #### L [id number] #### [facility] ([facility] [address] [place] [address] Potassium [Moles/Vol] 3.9 mmol/L Normal 3.5-5.1 [facility] Comment on above: Performed By: #### L [id number] #### [facility] ([facility]) [address] [place] [address] Sodium [Moles/Vol] 135 mmol/L Low 136-145 [facility] Comment on above: Performed By: #### L [id number] #### [facility] ([facility]) [address] [place] [address] Urea nitrogen [Mass/Vol] 22 mg/dL Normal 7-25 [facility] Comment on above: Performed By: #### L [id number] #### [facility] ([facility]) [address] [place] [address] UREA NITROGEN/CREATININE (MASS RATIO) IN SER/PLAS 36.7 Normal [facility] Comment on above: Performed By: #### L [id number] #### [facility] ([facility]) [address] [place] [address] CBCon 08-08-2023 Erythrocyte distribution width (RBC) [Ratio] 13.0 % Normal 11.5-15.0 [facility] Comment on above: Performed By: #### L [id number] #### [facility] ([facility]) [address] [place] [address] ERYTHROCYTE MEAN CORPUSCULAR HEMOGLOBIN CONCENTRATION (G/DL) BY AUTOMATED 31.8 g/dL Low 32.0-35.0 [place] Comment on above: Performed By: #### L [id number] #### [facility] ([facility]) [address] [place] [address] Hematocrit (Bld) [Volume fraction] 47.5 % Normal 36.0-48.0 [facility] Comment on above: Performed By: #### L [id number] #### [facility] [address] [place] [address] Hemoglobin (Bld) [Mass/Vol] 15.1 g/dL High 12.0-15.0 [facility] Comment on above: Performed By: #### L [id number] #### [facility] ([facility]) [address] [place] [address] MCH (RBC) [Entitic mass] 29.7 pg Normal 27.0-33.0 [facility] Comment on above: Performed By: #### L [id number] #### [facility] ([facility]) [address] [place] [address] MCV (RBC) [Entitic vol] 93.3 fL Normal 82.0-98.0 [facility] Comment on above: Performed By: #### L [id number] #### [facility] ([facility]) [address] [place] [address] PLATELETS (10*3/UL) IN BLOOD AUTOMATED COUNT 190 10*3/uL Normal 150-400 [facility] Comment on above: Performed By: #### L [id number] #### [facility] ([facility]) [address] [place] [address] RBC (Bld) [#/Vol] 5.09 10*6/uL High 3.80-5.00 [facility] Comment on above: Performed By: #### L [id number] #### [facility] ([facility]) [address] [place] [address] WBC (Bld) [#/Vol] 8.55 10*3/uL Normal 4.00-10.60 [facility] Comment on above: Performed By: #### L [id number] #### [facility] ([facility]) [address] [place] [address] CTA CHEST W AND/OR WO IV CON [...] reasonably achievable. Electronically signed: Karlos Gallardo. Normal [facility] MAGNESIUMon 08-08-2023 Magnesium [Mass/Vol] 1.8 mg/dL Low 1.9-2.7 [facility] Comment on above: Performed By: #### L [id number] #### [facility] ([facility]) [address] [place] [address] NURSNOTEon 08-08-2023 NURSNOTE Patient Name: Daniel Lynn [...] Pamela Babcock RN Rapid Response Team Nurse [phone] 08/08/2023 3:26 PM Normal [facility] PHOSPHORUSon 08-08-2023 Magnesium [Mass/Vol] 3.4 mg/dL Normal 2.5-5.0 [facility] Comment on above: Performed By: #### L [id number] ####[facility] ([facility])[address] [facility] [place] [address] POCT GLUCOSE METER UNSOLICIT ED RESULTSon 08-08-2023 Glucose [Mass/Vol] 331 mg/dL High 70-105 [facility] Comment on above: Order Comment: Waive d Testing in the ED is performed under the ED CLIA certificate #[id number]. Result Comment: [email or web address] Performed By: #### L [id number] #### [facility] ([employer]) [address] [place] [address] Glucose [Mass/Vol] 249 mg/dL High 70-105 [facility] Comment on above: Order Comment: Waive d Testing in the ED is performed under the ED CLIA certificate #[id number]. Result Comment: [email or web address] Performed By: #### L [id number] #### [facility] ([facility]) [address] [place] [address] Glucose [Mass/Vol] 277 mg/dL High 70-105 [facility] Comment on above: Order Comment: Waive d Testing in the ED is performed under the ED CLIA certificate #[id number]. Result Comment: [email or web address] Performed By: #### L [id number] #### [facility] ([facility] [address] [place] [address] Glucose [Mass/Vol] 198 mg/dL High 70-105 [facility] Comment on above: Order Comment: Waive d Testing in the ED is performed under the ED CLIA certificate #[id number]. Result Comment: [email or web address] Performed By: #### L [id number] #### [facility] ([facility]) [address] [place] [address] Glucose [Mass/Vol] 111 mg/dL High 70-105 [facility] Comment on above: Order Comment: Waive d Testing in the ED is performed under the ED CLIA certificate #[id number]. Result Comment: [email or web address] Performed By: #### L [id number] #### [facility] ([facility]) [address] [place] [address] 30on 08-07-2023 30 Problem: Discharge Planning Goal: Discharge to home [...] practices Implement preventative oral hygiene regimen Normal [facility] BASIC METABOLIC PANELon 11-2 Anion gap [Moles/Vol] 9 mmol/L Normal 7-20 [facility] Comment on above: Performed By: #### L [id number] #### [facility] ([facility]) [address] [place] [address] Calcium [Mass/Vol] 8.5 mg/dL Low 8.6-10.3 [facility] Comment on above: Performed By: #### L [id number] #### [facility] ([facility]) [address] [place] [address] Chloride [Moles/Vol] 98 mmol/L Normal 98-107 [facility] Comment on above: Performed By: #### L [id number] #### [facility] ([facility]) [address] [place] [address] CO2 [Moles/Vol] 31 mmol/L Normal 21-31 [facility] Comment on above: Performed By: #### L [id number] #### [facility] ([facility]) [address] [place] [address] Creatinine [Mass/Vol] 0.59 mg/dL Low 0.60-1.20 [facility] Comment on above: Performed By: #### L [id number] #### [facility] ([facility]) [address] [place] [address] GLOMERULAR FILTRATION RATE ML/MIN/1.73 SQ M.PREDICTED 111.8 mL/min/1.73m*2 Normal >60.0 [facility] Comment on above: Result Comment: The [facility]???s estimated glomerular filtration rate (eGFR) will no [...] individuals. Performed By: #### L [id number] #### [facility] [address] [place] [address] Glucose [Mass/Vol] 210 mg/dL High 70-100 [facility] Comment on above: Performed By: #### L [id number] #### [facility] ([facility]) [address] [place] [address] Potassium [Moles/Vol] 3.8 mmol/L Normal 3.5-5.1 [facility] Comment on above: Performed By: #### L [id number] #### [facility] ([facility]) [address] [place] [address] Sodium [Moles/Vol] 134 mmol/L Low 136-145 [facility] Comment on above: Performed By: #### L [id number] #### [facility] ([facility]) [address] [place] [address] Urea nitrogen [Mass/Vol] 25 mg/dL Normal 7-25 [facility] Comment on above: Performed By: #### L [id number] #### [facility] ([facility]) [address] [place] [address] UREA NITROGEN/CREATININE (MASS RATIO) IN SER/PLAS 42.4 Normal [facility] Comment on above: Performed By: #### L [id number] #### [facility] ([facility]) [address] [place] [address] CBCon 08-07-2023 Erythrocyte distribution width (RBC) [Ratio] 13.0 % Normal 11.5-15.0 [facility] Comment on above: Performed By: #### L [id number] #### [facility] ([facility]) [address] [place] [address] ERYTHROCYTE MEAN CORPUSCULAR HEMOGLOBIN CONCENTRATION (G/DL) BY AUTOMATED 32.6 g/dL Normal 32.0-35.0 [place] Comment on above: Performed By: #### L [id number] #### [facility] [address] [place] [address] Hematocrit (Bld) [Volume fraction] 47.3 % Normal 36.0-48.0 [facility] Comment on above: Performed By: #### L [id number] #### [facility] ([facility]) [address] [place] [address] Hemoglobin (Bld) [Mass/Vol] 15.4 g/dL High 12.0-15.0 [facility] Comment on above: Performed By: #### L [id number] #### [facility] ([facility]) [address] [place] [address] MCH (RBC) [Entitic mass] 30.1 pg Normal 27.0-33.0 [facility] Comment on above: Performed By: #### L [id number] #### [facility] ([facility]) [address] [place] [address] MCV (RBC) [Entitic vol] 92.6 fL Normal 82.0-98.0 [facility] Comment on above: Performed By: #### L [id number] #### [facility] ([facility]) [address] [place] [address] PLATELETS (10*3/UL) IN BLOOD AUTOMATED COUNT 194 10*3/uL Normal 150-400 [facility] Comment on above: Performed By: #### L [id number] #### [facility] ([facility]) [address] [place] [address] RBC (Bld) [#/Vol] 5.11 10*6/uL High 3.80-5.00 [facility] Comment on above: Performed By: #### L [id number] #### [facility] ([facility]) [address] [place] [address] WBC (Bld) [#/Vol] 9.05 10*3/uL Normal 4.00-10.60 [facility] Comment on above: Performed By: #### L [id number] #### [facility] ([facility]) [address] [place] [address] MAGNESIUMon 08-07-2023 Magnesium [Mass/Vol] 1.7 mg/dL Low 1.9-2.7 [facility] Comment on above: Performed By: #### L [id number] #### [facility] ([facility]) [address] [place] [address] NURSNOTEon 08-07-2023 NURSNOTE Report given to NEDRA dhillon in CVU. All questions answered at this time- patient belongings given from medical underwriter to RN. Normal [facility] PHOSPHORUSon 08-07-2023 Magnesium [Mass/Vol] 3.5 mg/dL Normal 2.5-5.0 [facility] Comment on above: Performed By: #### L [id number] #### [facility] ([facility]) [address] [place] [address] POCT GLUCOSE METER UNSOLICIT ED RESULTSon 08-07-2023 Glucose [Mass/Vol] 233 mg/dL High 70-105 [facility] Comment on above: Order Comment: Waive d Testing in the ED is performed under the ED CLIA certificate #[id number]. Result Comment: [email or web address] Performed By: #### L [id number] #### [facility] ([facility]) [address] [place] [address] Glucose [Mass/Vol] 156 mg/dL High 70-105 [facility] Comment on above: Order Comment: Waive d Testing in the ED is performed under the ED CLIA certificate #[id number]. Result Comment: [email or web address] Performed By: #### L [id number] #### [facility] ([facility]) [address] [place] [address] Glucose [Mass/Vol] 305 mg/dL High 70-105 [facility] Comment on above: Order Comment: Waive d Testing in the ED is performed under the ED CLIA certificate #[id number]. Result Comment: [email or web address] Performed By: #### L [id number] #### [facility] ([facility]) [address] [place] [address] 30on 08-06-2023 30 Problem: Pain - Adul t Goal: Verbalizes/displays adequate comfort level or baseline comfort level Outcome: Progressing Problem: Safety - Adult Goal: Free from fall injury Outcome: Progressing Flowsheets (Taken 08/06/2023799) Free from fall injury: Assess patient frequently [...] maintained or improved Outcome: Progressing Flowsheets (Taken 08/06/2023799) Care Plan - Patient's Chronic Conditions and Co-Morbidity Symptoms are Monitored and Maintained or Improved: Monitor and assess patient's chronic conditions and comorbid symptoms for stability, deterioration, or improvement Problem: Cardiovascular - Adult Goal: Maintains optimal cardiac output and hemodynamic stability Outcome: Progressing Goal: Absence of cardiac dysrhythmias or at baseline Outcome: Progressing Normal [facility] BASIC METABOLIC PANELon 11-2 Anion gap [Moles/Vol] 9 mmol/L Normal 7-20 [facility] Comment on above: Performed By: #### L [id number] #### [facility] ([facility]) [address] [place] [address] Calcium [Mass/Vol] 8.4 mg/dL Low 8.6-10.3 [facility] Comment on above: Performed By: #### L [id number] #### [facility] ([facility]) [address] [place] [address] Chloride [Moles/Vol] 100 mmol/L Normal 98-107 [facility] Comment on above: Performed By: #### L [id number] #### [facility] ([facility]) [address] [place] [address] CO2 [Moles/Vol] 30 mmol/L Normal 21-31 [facility] Comment on above: Performed By: #### L [id number] #### [facility] ([facility]) [address] [place] [address] Creatinine [Mass/Vol] 0.61 mg/dL Normal 0.60-1.20 [facility] Comment on above: Performed By: #### L [id number] #### [facility] ([facility]) [address] [place] [address] GLOMERULAR FILTRATION RATE ML/MIN/1.73 SQ M.PREDICTED 110.9 mL/min/1.73m*2 Normal >60.0 [facility] Comment on above: Result Comment: The [facility]???s estimated glomerular filtration rate (eGFR) will no [...] individuals. Performed By: #### L [id number] #### [facility] ([facility]) [address] [place] [address] Glucose [Mass/Vol] 180 mg/dL High 70-100 [facility] Comment on above: Performed By: #### L [id number] #### [facility] ([facility]) [address] [place] [address] Potassium [Moles/Vol] 4.1 mmol/L Normal 3.5-5.1 [facility] Comment on above: Performed By: #### L [id number] #### [facility] ([facility]) [address] [place] [address] Sodium [Moles/Vol] 135 mmol/L Low 136-145 [facility] Comment on above: Performed By: #### L [id number] #### [facility] ([facility]) [address] [place] [address] Urea nitrogen [Mass/Vol] 20 mg/dL Normal 7-25 [facility] Comment on above: Performed By: #### L [id number] #### [facility] ([facility]) [address] [place] [address] UREA NITROGEN/CREATININE (MASS RATIO) IN SER/PLAS 32.8 Normal [facility] Comment on above: Performed By: #### L [id number] #### [facility] ([facility]) [address] [place] [address] CBCon 08-06-2023 Erythrocyte distribution width (RBC) [Ratio] 12.9 % Normal 11.5-15.0 [facility] Comment on above: Performed By: #### L [id number] #### [facility] ([facility]) [address] [place] [address] ERYTHROCYTE MEAN CORPUSCULAR HEMOGLOBIN CONCENTRATION (G/DL) BY AUTOMATED 32.4 g/dL Normal 32.0-35.0 [place] Comment on above: Performed By: #### L [id number] #### [facility] ([facility]) [address] [place] [address] Hematocrit (Bld) [Volume fraction] 48.5 % High 36.0-48.0 [facility] Comment on above: Performed By: #### L [id number] #### [facility] ([facility]) [address] [place] [address] Hemoglobin (Bld) [Mass/Vol] 15.7 g/dL High 12.0-15.0 [facility] Comment on above: Performed By: #### L [id number] #### [facility] ([facility]) [address] [place] [address] MCH (RBC) [Entitic mass] 30.3 pg Normal 27.0-33.0 [facility] Comment on above: Performed By: #### L [id number] #### [facility] ([facility]) [address] [place] [address] MCV (RBC) [Entitic vol] 93.4 fL Normal 82.0-98.0 [facility] Comment on above: Performed By: #### L [id number] #### [facility] ([facility]) [address] [place] [address] PLATELETS (10*3/UL) IN BLOOD AUTOMATED COUNT 159 10*3/uL Normal 150-400 [facility] Comment on above: Performed By: #### L [id number] #### [facility] ([facility]) [address] [place] [address] RBC (Bld) [#/Vol] 5.19 10*6/uL High 3.80-5.00 [facility] Comment on above: Performed By: #### L [id number] #### [facility] ([facility]) [address] [place] [address] WBC (Bld) [#/Vol] 8.36 10*3/uL Normal 4.00-10.60 [facility] Comment on above: Performed By: #### L [id number] #### [facility] ([facility]) [address] [place] [address] MAGNESIUMon 08-06-2023 Magnesium [Mass/Vol] 1.8 mg/dL Low 1.9-2.7 [facility] Comment on above: Performed By: #### L [id number] #### [facility] ([facility]) [address] [place] [address] MRI CARDIAC MORPHOLOGY AND F UNCTION W [...] . . Electronically signed: Cade Farley. Normal [facility] PHOSPHORUSon 08-06-2023 Magnesium [Mass/Vol] 3.2 mg/dL Normal 2.5-5.0 [facility] Comment on above: Performed By: #### L [id number] #### [facility] ([facility]) [address] [place] [address] POCT GLUCOSE METER UNSOLICIT ED RESULTSon 08-06-2023 Glucose [Mass/Vol] 240 mg/dL High 70-105 [facility] Comment on above: Order Comment: Waive d Testing in the ED is performed under the ED CLIA certificate #[id number]. Result Comment: [email or web address] Performed By: #### L [id number] ####[facility] ([facility])[address] [place] [address] Glucose [Mass/Vol] 240 mg/dL High 70-105 [facility] Comment on above: Order Comment: Waive d Testing in the ED is performed under the ED CLIA certificate #[id number]. Result Comment: [email or web address] Performed By: #### L [id number] #### [facility] ([facility]) [address] [place] [address] Glucose [Mass/Vol] 252 mg/dL High 70-105 [facility] Comment on above: Order Comment: Waive d Testing in the ED is performed under the ED CLIA certificate #[id number]. Result Comment: [email or web address] Performed By: #### L [id number] #### [facility] ([facility]) [address] [place] [address] 30on 08-05-2023 30 The patient is Moder [...] Goal: Maintains hematologic stability Outcome: Progressing Normal [facility] 30 Problem: Pain - Adul t Goal: [...] goals for the shift include VSS Normal [facility] BASIC METABOLIC PANELon 11- Anion gap [Moles/Vol] 7 mmol/L Normal 7-20 [facility] Comment on above: Performed By: #### L [id number] ####[facility] ([facility])[address] [facility] [facility] [place] [address] Calcium [Mass/Vol] 8.4 mg/dL Low 8.6-10.3 [facility] Comment on above: Performed By: #### L [id number] ####[facility] ([facility])[address] [facility] [facility] [place] [address] Chloride [Moles/Vol] 99 mmol/L Normal 98-107 [facility] Comment on above: Performed By: #### L [id number] ####[facility] [facility] [facility] [place] [address] CO2 [Moles/Vol] 33 mmol/L High 21-31 [facility] Comment on above: Performed By: #### L [id number] ####[facility] ([facility])[address] [facility] [facility] [place] [address] Creatinine [Mass/Vol] 0.75 mg/dL Normal 0.60-1.20 [facility] Comment on above: Performed By: #### L [id number] ####[facility] ([facility])[address] [place] [address] GLOMERULAR FILTRATION RATE ML/MIN/1.73 SQ M.PREDICTED 98.8 mL/min/1.73m*2 Normal >60.0 [place] Comment on above: Result Comment: The [facility]???s estimated glomerular filtration rate (eGFR) will no [...] of individuals. Performed By: #### L [id number] ####[facility] ([facility])[address] [place] [address] Glucose [Mass/Vol] 206 mg/dL High 70-100 [facility] Comment on above: Performed By: #### L [id number] ####[facility] ([facility])[address] [place] [address] Potassium [Moles/Vol] 3.7 mmol/L Normal 3.5-5.1 [facility] Comment on above: Performed By: #### L [id number] ####[facility] ([facility])[address] [place] [address] Sodium [Moles/Vol] 135 mmol/L Low 136-145 [facility] Comment on above: Performed By: #### L [id number] ####[facility] ([facility])[address] [facility] [place] [address] Urea nitrogen [Mass/Vol] 26 mg/dL High 7-25 [facility] Comment on above: Performed By: #### L [id number] ####[facility] ([facility])[address] [place] [address] UREA NITROGEN/CREATININE (MASS RATIO) IN SER/PLAS 34.7 Normal [facility] Comment on above: Performed By: #### L [id number] ####[facility] ([facility])[address] [facility] [place] [address] CBCon 08-05-2023 Erythrocyte distribution width (RBC) [Ratio] 13.0 % Normal 11.5-15.0 [facility] Comment on above: Performed By: #### L [id number] ####[facility] ([facility])[address] [facility] [address] ERYTHROCYTE MEAN CORPUSCULAR HEMOGLOBIN CONCENTRATION (G/DL) BY AUTOMATED 32.7 g/dL Normal 32.0-35.0 [place] Comment on above: Performed By: #### L [id number] ####[facility] ([facility])[address] [place] [address] Hematocrit (Bld) [Volume fraction] 49.5 % High 36.0-48.0 [facility] Comment on above: Performed By: #### L [id number] ####[facility] ([facility] [place] [address] Hemoglobin (Bld) [Mass/Vol] 16.2 g/dL High 12.0-15.0 [facility] Comment on above: Performed By: #### L [id number] ####[facility] ([facility] [place] [address] MCH (RBC) [Entitic mass] 30.6 pg Normal 27.0-33.0 [facility] Comment on above: Performed By: #### L [id number] ####[facility] ([facility])[address] [place] [address] MCV (RBC) [Entitic vol] 93.4 fL Normal 82.0-98.0 [facility] Comment on above: Performed By: #### L [id number] ####[facility] ([facility])[address] [place] [address] PLATELETS (10*3/UL) IN BLOOD AUTOMATED COUNT 190 10*3/uL Normal 150-400 [facility] Comment on above: Performed By: #### L [id number] ####[facility] ([facility] [place] [address] RBC (Bld) [#/Vol] 5.30 10*6/uL High 3.80-5.00 [facility] Comment on above: Performed By: #### L [id number] ####[facility] [place] [address] WBC (Bld) [#/Vol] 9.57 10*3/uL Normal 4.00-10.60 [facility] Comment on above: Performed By: #### L [id number] ####[facility] ([facility])[address] [place] [address] MAGNESIUMon 08-05-2023 Magnesium [Mass/Vol] 1.9 mg/dL Normal 1.9-2.7 [facility] Comment on above: Performed By: #### L [id number] #### [facility] ([facility]) [address] [place] [address] PHOSPHORUSon 08-05-2023 Magnesium [Mass/Vol] 3.1 mg/dL Normal 2.5-5.0 [facility] Comment on above: Performed By: #### L [id number] ####[facility] ([facility])[address] [place] [address] POCT GLUCOSE METER UNSOLICIT ED RESULTSon 08-05-2023 Glucose [Mass/Vol] 272 mg/dL High 70-105 [facility] Comment on above: Order Comment: Waive d Testing in the ED is performed under the ED CLIA certificate #[id number]. Result Comment: [email or web address] Performed By: #### L [id number] #### [facility] ([facility]) [address] [place] [address] Glucose [Mass/Vol] 203 mg/dL High 70-105 [facility] Comment on above: Order Comment: Waive d Testing in the ED is performed under the ED CLIA certificate #[id number]. Result Comment: [email or web address] Performed By: #### L [id number] ####[facility] ([facility])[address] [place] [address] Glucose [Mass/Vol] 227 mg/dL High 70-105 [facility] Comment on above: Order Comment: Waive d Testing in the ED is performed under the ED CLIA certificate #[id number]. Result Comment: [email or web address] ry Performed By: #### L [id number] #### [facility] ([facility]) [address] [place] [address] Glucose [Mass/Vol] 200 mg/dL High 70-105 [facility] Comment on above: Order Comment: Waive d Testing in the ED is performed under the ED CLIA certificate #[id number]. Result Comment: ana [email or web address] Performed By: #### L [id number] #### [facility] ([facility]) [address] [place] [address] 30on 08-04-2023 30 The patient is Moder ately Unstable [...] Goal: Maintains hematologic stability Outcome: Progressing Normal [facility] 30 The patient is Moder ately Stable [...] Goal: Maintains hematologic stability Outcome: Progressing Normal [facility] BASIC METABOLIC PANELon 11- Anion gap [Moles/Vol] 7 mmol/L Normal - [facility] Comment on above: Performed By: #### L [id number] ####[facility] ([facility])[address] [place] [address] Calcium [Mass/Vol] 8.4 mg/dL Low 8.6-10.3 [facility] Comment on above: Performed By: #### L [id number] ####[facility] ([facility] [place] [address] Chloride [Moles/Vol] 99 mmol/L Normal 98-107 [facility] Comment on above: Performed By: #### L [id number] ####[facility] ([facility])[address] [place] [address] CO2 [Moles/Vol] 33 mmol/L High 21-31 [facility] Comment on above: Performed By: #### L [id number] ####[facility] ([facility])[address] [place] [address] Creatinine [Mass/Vol] 0.82 mg/dL Normal 0.60-1.20 [facility] Comment on above: Performed By: #### L [id number] ####[facility] ([facility])[address] [place] [address] GLOMERULAR FILTRATION RATE ML/MIN/1.73 SQ M.PREDICTED 88.7 mL/min/1.73m*2 Normal >60.0 [place] Comment on above: Result Comment: The [facility]???s estimated glomerular filtration rate (eGFR) will no [...] of individuals. Performed By: #### L [id number] ####[facility] ([facility] [place] [address] Glucose [Mass/Vol] 207 mg/dL High 70-100 [facility] Comment on above: Performed By: #### L [id number] ####[facility] ([facility] [place] [address] Potassium [Moles/Vol] 3.8 mmol/L Normal 3.5-5.1 [facility] Comment on above: Performed By: #### L [id number] ####[facility] ([facility] [place] [address] Sodium [Moles/Vol] 135 mmol/L Low 136-145 [facility] Comment on above: Performed By: #### L [id number] ####[facility] ([facility] [place] [address] Urea nitrogen [Mass/Vol] 28 mg/dL High 7-25 [facility] Comment on above: Performed By: #### L [id number] ####[facility] ([facility])[address] [place] [address] UREA NITROGEN/CREATININE (MASS RATIO) IN SER/PLAS 34.1 Normal [facility] Comment on above: Performed By: #### L [id number] ####[facility] ([facility])[address] [place] [address] CBCon 08-04-2023 Erythrocyte distribution width (RBC) [Ratio] 13.0 % Normal 11.5-15.0 [facility] Comment on above: Performed By: #### L [id number] #### [facility] [address] [place] [address] ERYTHROCYTE MEAN CORPUSCULAR HEMOGLOBIN CONCENTRATION (G/DL) BY AUTOMATED 32.5 g/dL Normal 32.0-35.0 [place] Comment on above: Performed By: #### L [id number] #### [facility] [address] [place] [address] Hematocrit (Bld) [Volume fraction] 49.9 % High 36.0-48.0 [facility] Comment on above: Performed By: #### L [id number] #### [facility] ([facility]) [address] [place] [address] Hemoglobin (Bld) [Mass/Vol] 16.2 g/dL High 12.0-15.0 [facility] Comment on above: Performed By: #### L [id number] #### [facility] [address] [place] [address] MCH (RBC) [Entitic mass] 30.5 pg Normal 27.0-33.0 [facility] Comment on above: Performed By: #### L [id number] #### [facility] [address] [place] [address] MCV (RBC) [Entitic vol] 93.8 fL Normal 82.0-98.0 [facility] Comment on above: Performed By: #### L [id number] #### [facility] ([facility]) [address] [place] [address] PLATELETS (10*3/UL) IN BLOOD AUTOMATED COUNT 197 10*3/uL Normal 150-400 [facility] Comment on above: Performed By: #### L [id number] #### [facility] ([facility]) [address] [place] [address] RBC (Bld) [#/Vol] 5.32 10*6/uL High 3.80-5.00 [facility] Comment on above: Performed By: #### L [id number] #### [facility] [address] [place] [address] WBC (Bld) [#/Vol] 10.19 10*3/uL Normal 4.00-10.60 [facility] Comment on above: Performed By: #### L [id number] #### [facility] [address] [place] [address] CONSULTon 08-04-2023 CONSULT Inpatient consult to Cardiothoracic Surgery Consult performed by: Gian Cardona NP Consult ordered by: Lisstete Delgado MD Reason for consult: ASD History Of Present Illness Daniel Lynn is a 47 y.o. female with PMH of Asthma and Obesity who was initially evaluated in [place] on 07/25 with with 4 days of [...] the patient and they recommended transfer to [facility] for right heart catherization. She arrived to [facility] 08/01 where she was admitted to the [...] alcohol use and drug use. Allergies Bactrim [sulfamethoxazole-trimeth oprim], Lisinopril, and Penicillins Medications Medications Prior to [...] Mental Status (more content not included)... Normal [facility] MAGNESIUMon 08-04-2023 Magnesium [Mass/Vol] 1.9 mg/dL Normal 1.9-2.7 [facility] Comment on above: Performed By: #### L [id number] #### [facility] ([facility]) [address] [place] [address] PHOSPHORUSon 08-04-2023 Magnesium [Mass/Vol] 2.8 mg/dL Normal 2.5-5.0 [facility] [place] Comment on above: Performed By: #### L [id number] #### [facility] ([facility]) [address] [place] [address] POCT GLUCOSE METER UNSOLICIT ED RESULTSon 08-04-2023 Glucose [Mass/Vol] 310 mg/dL High 70-105 [facility] Comment on above: Order Comment: Waive d Testing in the ED is performed under the ED CLIA certificate #[id number]. Result Comment: [email or web address] Performed By: #### L [id number] #### [facility] ([facility]) [address] [place] [address] Glucose [Mass/Vol] 248 mg/dL High 70-105 [facility] Comment on above: Order Comment: Waive d Testing in the ED is performed under the ED CLIA certificate #[id number]. Result Comment: [email or web address] Performed By: #### L [id number] #### [facility] ([facility]) [address] [place] [address] Glucose [Mass/Vol] 212 mg/dL High 70-105 [facility] Comment on above: Order Comment: Waive d Testing in the ED is performed under the ED CLIA certificate #[id number]. Result Comment: [email or web address] Performed By: #### L [id number] #### [facility] ([facility]) [address] [place] [address] Glucose [Mass/Vol] 185 mg/dL High 70-105 [facility] Comment on above: Order Comment: Waive d Testing in the ED is performed under the ED CLIA certificate #[id number]. Result Comment: [email or web address] Performed By: #### L [id number] #### [facility] ([facility]) [address] [place] [address] BASIC METABOLIC PANELon 11- Anion gap [Moles/Vol] 10 mmol/L Normal 7-20 [facility] Comment on above: Performed By: #### L [id number] #### [facility] ([facility]) [address] [place] [address] Calcium [Mass/Vol] 8.7 mg/dL Normal 8.6-10.3 [facility] Comment on above: Performed By: #### L [id number] #### [facility] ([facility]) [address] [place] [address] Chloride [Moles/Vol] 95 mmol/L Low 98-107 [facility] Comment on above: Performed By: #### L [id number] #### [facility] ([facility]) [address] [place] [address] CO2 [Moles/Vol] 32 mmol/L High 21-31 [facility] Comment on above: Performed By: #### L [id number] #### [facility] ([facility]) [address] [place] [address] Creatinine [Mass/Vol] 0.67 mg/dL Normal 0.60-1.20 [facility] Comment on above: Performed By: #### L [id number] #### [facility] ([facility]) [address] [place] [address] GLOMERULAR FILTRATION RATE ML/MIN/1.73 SQ M.PREDICTED 108.4 mL/min/1.73m*2 Normal >60.0 [facility] Comment on above: Result Comment: The [facility]???s estimated glomerular filtration rate (eGFR) will no [...] individuals. Performed By: #### L [id number] #### [facility] ([facility]) [address] [place] [address] Glucose [Mass/Vol] 277 mg/dL High 70-100 [facility] Comment on above: Performed By: #### L [id number] #### [facility] ([facility]) [address] [place] [address] Potassium [Moles/Vol] 3.6 mmol/L Normal 3.5-5.1 [facility] Comment on above: Performed By: #### L [id number] #### [facility] ([facility]) [address] [place] [address] Sodium [Moles/Vol] 133 mmol/L Low 136-145 [facility] Comment on above: Performed By: #### L [id number] #### [facility] ([facility]) [address] [place] [address] Urea nitrogen [Mass/Vol] 32 mg/dL High 7-25 [facility] Comment on above: Performed By: #### L [id number] #### [facility] ([facility]) [address] [place] [address] UREA NITROGEN/CREATININE (MASS RATIO) IN SER/PLAS 47.8 Normal [facility] Comment on above: Performed By: #### L [id number] #### [facility] ([facility]) [address] [place] [address] CBCon 08-03-2023 Erythrocyte distribution width (RBC) [Ratio] 13.0 % Normal 11.5-15.0 [facility] Comment on above: Performed By: #### L [id number] #### [facility] ([facility]) [address] [place] [address] ERYTHROCYTE MEAN CORPUSCULAR HEMOGLOBIN CONCENTRATION (G/DL) BY AUTOMATED 32.7 g/dL Normal 32.0-35.0 [place] Comment on above: Performed By: #### L [id number] #### [facility] ([facility]) [address] [place] [address] Hematocrit (Bld) [Volume fraction] 54.8 % High 36.0-48.0 [facility] Comment on above: Performed By: #### L [id number] #### [facility] ([facility]) [address] [place] [address] Hemoglobin (Bld) [Mass/Vol] 17.9 g/dL High 12.0-15.0 [facility] Comment on above: Performed By: #### L [id number] #### [facility] ([facility]) [address] [place] [address] MCH (RBC) [Entitic mass] 30.5 pg Normal 27.0-33.0 [facility] [place] [facility] Comment on above: Performed By: #### L [id number] #### [facility] ([facility]) [address] [place] [address] MCV (RBC) [Entitic vol] 93.5 fL Normal 82.0-98.0 [facility] Comment on above: Performed By: #### L [id number] #### [facility] ([facility]) [address] [place] [address] PLATELETS (10*3/UL) IN BLOOD AUTOMATED COUNT 208 10*3/uL Normal 150-400 [facility] [place] [facility] Comment on above: Performed By: #### L [id number] #### [facility] ([facility]) [address] [place] [address] RBC (Bld) [#/Vol] 5.86 10*6/uL High 3.80-5.00 [facility] Comment on above: Performed By: #### L [id number] #### [facility] ([facility]) [address] [place] [address] WBC (Bld) [#/Vol] 12.73 10*3/uL High 4.00-10.60 [facility] Comment on above: Performed By: #### L [id number] #### [facility] [address] [place] [address] MAGNESIUMon 08-03-2023 Magnesium [Mass/Vol] 1.9 mg/dL Normal 1.9-2.7 [facility] [place] Comment on above: Performed By: #### L [id number] #### [facility] ([facility]) [address] [place] [address] PHOSPHORUSon 08-03-2023 Magnesium [Mass/Vol] 3.3 mg/dL Normal 2.5-5.0 [facility] [place] [facility] Comment on above: Performed By: #### L [id number] #### [facility] ([facility]) [address] [place] [address] POCT GLUCOSE METER UNSOLICIT ED RESULTSon 08-03-2023 Glucose [Mass/Vol] 286 mg/dL High 70-105 [facility] Comment on above: Order Comment: Waive d Testing in the ED is performed under the ED CLIA certificate #[id number]. Result Comment: [email or web address] Performed By: #### L [id number] #### [facility] ([facility]) [address] [place] [address] Glucose [Mass/Vol] 214 mg/dL High 70-105 [facility] Comment on above: Order Comment: Waive d Testing in the ED is performed under the ED CLIA certificate #[id number]. Result Comment: [email or web address] Performed By: #### L [id number] #### [facility] ([facility]) [address] [place] [address] Glucose [Mass/Vol] 239 mg/dL High 70-105 [facility] Comment on above: Order Comment: Waive d Testing in the ED is performed under the ED CLIA certificate #[id number]. Result Comment: [email or web address] Performed By: #### L [id number] #### [facility] ([facility]) [address] [place] [address] Glucose [Mass/Vol] 234 mg/dL High 70-105 [facility] Comment on above: Order Comment: Waive d Testing in the ED is performed under the ED CLIA certificate #[id number]. Result Comment: [email or web address] Performed By: #### L [id number] #### [facility] ([facility]) [address] [place] [address] TSH3 REFLEX TO FT4on 023 THYROTROPIN (MIU/L) IN SER/PLAS BY DETECTION LIMIT <= 0.05 MIU/L 0.56 mIU/L Normal 0.34-5.60 [facility] [place] [facility] Comment on above: Performed By: #### L [id number] #### [facility] ([facility]) [address] [place] [address] ANAon 08-02-2023 PHANI TITER <1:40 Normal <=1:40 [facility] Comment on above: Result Comment: Test performed using [employer] IFA PHANI Hep-2 Test, a pre-standardized assay designed for the qualitative and semi-quantitative detection of antinuclear antibodies. Performed By: #### L [id number] #### [facility] ([facility]) [address] [place] [address] ANTI-CENTROMERE ANTIBODYon 10-02-2022 ANTI-CENTROMERE ANTIBODY Negative Normal Negative [facility] Comment on above: Performed By: #### L [id number] ####[facility] ([facility])[address] [place] [address] ANTI-DNASE B ANTIBODYon 07-18 DNASE B ANTIBODY <86 Normal <=259 [facility] Comment on above: Result Comment: REFE RENCE [...] of a recent Streptococcus infection. Performed By: [facility] [address] [place] [address] Trade Clerk: Saturnino Rai MD, PhD CLIA Number: [id number] Performed By: #### L [id number] #### [facility] ([facility]) [address] [place] [address] ANTI-RITU 1 ANTIBODY, IGGon ANTI RITU-1 IGG 1 AU/mL Normal 0-40 [facility] Comment on above: Result Comment: INTE RPRETIVE INFORMATION: Ritu-1 Antibody, IgG 29 AU/mL or less.........Negative 30-40 AU/mL..............Equivocal 41 AU/mL or greater......Positive Presence of Ritu-1 (antihistidyl transfer RNA [t-RNA] synthetase) antibody is associated with polymyositis and may also be seen in patients with dermatomyositis. Ritu-1 antibody is associated with pulmonary involvement (interstitial lung disease), Raynaud phenomenon, arthritis, and maintenance mechanic telephone's hands (implicated in antisynthetase syndrome). Performed By: [facility] [address] [place] [address] Trade Clerk: Saturnino Rai MD, PhD CLIA Number: [id number] Performed By: #### L [id number] #### [facility] ([facility]) [address] [place] [address] ARTERIAL BLOOD GAS WITH IONI ZED CALCIUMon 08-02-2023 Base excess Calc (Bld) [Moles/Vol] 13.8 mmol/L High -2.0-3.0 [facility] Comment on above: Order Comment: 04/26 Performed By: #### L [id number] #### [facility] ([facility]) [address] [place] [address] CALCIUM IONIZED (MMOL/L) IN BLOOD 1.08 mmol/L Low 1.15-1.33 [facility] Comment on above: Order Comment: 04/26 Performed By: #### L [id number] #### [facility] ([facility]) [address] [place] [address] CO2 (Bld) [Partial pressure] 60 mm[Hg] Critically high 35-48 [facility] Comment on above: Order Comment: 04/26 Performed By: #### L [id number] #### [facility] ([facility]) [address] [place] [address] FIO2 90 % Normal [facility] Comment on above: Order Comment: 04/26 Performed By: #### L [id number] #### [facility] ([facility]) [address] [place] [address] HCO3 (Bld) [Moles/Vol] 40.8 mmol/L High 21.0-28.0 [facility] Comment on above: Order Comment: 04/26 Performed By: #### L [id number] #### [facility] ([facility]) [address] [place] [address] Oxygen (Bld) [Partial pressure] 89 mm[Hg] Normal 83-100 [facility] Comment on above: Order Comment: 04/26 Performed By: #### L [id number] #### [facility] ([facility]) [address] [place] [address] OXYGEN SATURATION (%) IN ARTERIAL BLOOD 97.8 % Normal 94.0-98.0 [facility] Comment on above: Order Comment: 04/26 Performed By: #### L [id number] #### [facility] ([facility]) [address] [place] [address] pH (Bld) 7.44 [pH] Normal 7.35-7.45 [facility] Comment on above: Order Comment: 04/26 Performed By: #### L [id number] #### [facility] ([facility]) [address] [place] [address] SOURCE OF OXYGEN Bi-PAP Normal [facility] Comment on above: Order Comment: 04/26 Performed By: #### L [id number] #### [facility] ([facility]) [address] [place] [address] B-TYPE NATRIURETIC PEPTIDEon 08-02-2023 Natriuretic peptide B (Bld) [Mass/Vol] 37 pg/mL Normal 0-100 [facility] Comment on above: Performed By: #### L [id number] #### [facility] ([facility]) [address] [place] [address] BASIC METABOLIC PANELon 11-1 Anion gap [Moles/Vol] 10 mmol/L Normal 7-20 [facility] Comment on above: Performed By: #### L [id number] #### [facility] [address] [place] [address] Calcium [Mass/Vol] 8.8 mg/dL Normal 8.6-10.3 [facility] Comment on above: Performed By: #### L [id number] #### [facility] ([facility]) [address] [place] [address] Chloride [Moles/Vol] 91 mmol/L Low 98-107 [facility] Comment on above: Performed By: #### L [id number] #### [facility] [address] [place] [address] CO2 [Moles/Vol] 39 mmol/L High 21-31 [facility] Comment on above: Performed By: #### L [id number] #### [facility] ([facility]) [address] [place] [address] Creatinine [Mass/Vol] 0.70 mg/dL Normal 0.60-1.20 [facility] Comment on above: Performed By: #### L [id number] #### [facility] [address] [place] [address] GLOMERULAR FILTRATION RATE ML/MIN/1.73 SQ M.PREDICTED 107.3 mL/min/1.73m*2 Normal >60.0 [facility] Comment on above: Result Comment: The [facility]???s estimated glomerular filtration rate (eGFR) will no [...] individuals. Performed By: #### L [id number] #### [facility] ([facility]) [address] [place] [address] Glucose [Mass/Vol] 231 mg/dL High 70-100 [facility] Comment on above: Performed By: #### L [id number] #### [facility] ([facility]) [address] [place] [address] Potassium [Moles/Vol] 3.7 mmol/L Normal 3.5-5.1 [facility] Comment on above: Performed By: #### L [id number] #### [facility] ([facility]) [address] [place] [address] Sodium [Moles/Vol] 136 mmol/L Normal 136-145 [facility] Comment on above: Performed By: #### L [id number] #### [facility] ([facility]) [address] [place] [address] Urea nitrogen [Mass/Vol] 29 mg/dL High 7-25 [facility] Comment on above: Performed By: #### L [id number] #### [facility] ([facility]) [address] [place] [address] UREA NITROGEN/CREATININE (MASS RATIO) IN SER/PLAS 41.4 Normal [facility] Comment on above: Performed By: #### L [id number] #### [facility] ([facility]) [address] [place] [address] CBCon 08-02-2023 Erythrocyte distribution width (RBC) [Ratio] 13.2 % Normal 11.5-15.0 [facility] Comment on above: Performed By: #### L [id number] #### [facility] ([facility]) [address] [place] [address] ERYTHROCYTE MEAN CORPUSCULAR HEMOGLOBIN CONCENTRATION (G/DL) BY AUTOMATED 32.4 g/dL Normal 32.0-35.0 [place] Comment on above: Performed By: #### L [id number] #### [facility] [address] [place] [address] Hematocrit (Bld) [Volume fraction] 56.2 % High 36.0-48.0 [facility] Comment on above: Performed By: #### L [id number] #### [facility] [address] [place] [address] Hemoglobin (Bld) [Mass/Vol] 18.2 g/dL High 12.0-15.0 [facility] Comment on above: Performed By: #### L [id number] #### [facility] [address] [place] [address] MCH (RBC) [Entitic mass] 30.6 pg Normal 27.0-33.0 [facility] Comment on above: Performed By: #### L [id number] #### [facility] [address] [place] [address] MCV (RBC) [Entitic vol] 94.5 fL Normal 82.0-98.0 [facility] Comment on above: Performed By: #### L [id number] #### [facility] [address] [place] [address] PLATELETS (10*3/UL) IN BLOOD AUTOMATED COUNT 237 10*3/uL Normal 150-400 [facility] Comment on above: Performed By: #### L [id number] #### [facility] [address] [place] [address] RBC (Bld) [#/Vol] 5.95 10*6/uL High 3.80-5.00 [facility] Comment on above: Performed By: #### L [id number] #### [facility] [address] [place] [address] WBC (Bld) [#/Vol] 12.17 10*3/uL High 4.00-10.60 [facility] Comment on above: Performed By: #### L [id number] #### [facility] ([facility]) [address] [place] [address] CT CHEST HIGH RESOLUTION WO CONTRASTon 08-02-2023 [...] reasonably achievable. Electronically signed: Lonnie Tolentino. Normal [facility] CTA HEART STRUCTURE MORPHOLO GY W IV [...] the actual shunt. No pericardial effusion Large eyhzi-em-nnuu images obtained but there is no evidence [...] with atelectasis Electronically signed: Cade Farley. Normal [facility] HPon 08-02-2023 HP H&P reviewed. The pa maurice was examined and there are no changes to the H&P. Normal [facility] LEGIONELLA ANTIGEN, URINEon 11-16-2023 LEGIONELLA AG, UR Negative Normal NEG [facility] Comment on above: Result Comment: L. p neumophila serogroup 1 antigen not detected. A negative result does not exclude infection with Leginella pnemophila serogroup 1 nor does it rule out other microbial-caused respiratory infections of disease caused by other serogroups of Legionella pneumophila. Test Performed by [facility] [address] [place] [address] - Released 08/02/2023 19:58 Performed By: #### L [id number] #### [facility] ([facility]) [address] [place] [address] MAGNESIUMon 08-02-2023 Magnesium [Mass/Vol] 2.0 mg/dL Normal 1.9-2.7 [facility] Comment on above: Performed By: #### L [id number] #### [facility] ([facility]) [address] [place] [address] MRSA/MSSA DNA NASALon 2022 MRSA DNA Negative Normal Negative [facility] Comment on above: Order Comment: Waive d Testing in the ED is performed under the ED CLIA certificate #[id number]. Performed By: #### L [id number] #### [facility] ([facility]) [address] [place] [address] MSSA DNA Negative Normal Negative [facility] Comment on above: Order Comment: Waive d Testing in the ED is performed under the ED CLIA certificate #[id number]. Performed By: #### L [id number] #### [facility] ([facility]) [address] [place] [address] NM LUNG PERFUSION PARTICULAT Cruzito 08-02-2023 NM [...] pulmonary thromboembolism. Electronically signed: Lonnie Tolentino. Normal [facility] PHOSPHORUSon 08-02-2023 Magnesium [Mass/Vol] 4.5 mg/dL Normal 2.5-5.0 [facility] Comment on above: Performed By: #### L [id number] #### [facility] ([facility]) [address] [place] [address] POCT GLUCOSE METER UNSOLICIT ED RESULTSon 08-02-2023 Glucose [Mass/Vol] 337 mg/dL High 70-105 [facility] Comment on above: Order Comment: Waive d Testing in the ED is performed under the ED CLIA certificate #[id number]. Result Comment: ebol tz Performed By: #### L [id number] #### [facility] ([employer]) [address] [place] [address] Glucose [Mass/Vol] 164 mg/dL High 70-105 [facility] Comment on above: Order Comment: Waive d Testing in the ED is performed under the ED CLIA certificate #[id number]. Result Comment: lhag iga Performed By: #### L [id number] #### [facility] ([employer]) [address] [place] [address] Glucose [Mass/Vol] 218 mg/dL High 70-105 [facility] Comment on above: Order Comment: Waive d Testing in the ED is performed under the ED CLIA certificate #[id number]. Result Comment: ebol tz Performed By: #### L [id number] #### [facility] ([employer]) [address] [place] [address] PROCALCITONIN TESTon 023 PROCALCITONIN IN BLOOD 0.04 ng/mL Normal 0.00-0.10 [facility] Comment on above: Result Comment: Susp ected Lower Respiratory Tract Infection: 0.1-0.25 ng/mL - Low likelihood [...] and initial PCT<0.5ng/mL Performed By: #### L [id number] ####[facility] ([facility])[address] [place] [address] RHEUMATOID FACTORon 08-02-20 23 Rheumatoid factor Qn [IU]/mL Normal 0-20 [facility] Comment on above: Performed By: #### L [id number] #### [facility] ([facility]) [address] [place] [address] RNA POLYMERASE III ANTIBODY IGGon 08-02-2023 RNA POLYMERASE III ANTIBODY, IGG 11 Units Normal 0-19 [facility] Comment on above: Result Comment: INTE RPRETIVE [...] antibodies associated with SSc, including centromere, Scl-70, U3-STRADDLE BUG DRIVER, PM/Scl, or Th/To. Performed By: [facility] [address] [place] [address] Trade Clerk: Saturnino Rai MD, PhD CLIA Number: [id number] Performed By: #### L [id number] #### [facility] ([facility]) [address] [place] [address] SJOGRENS SYNDROME ANTIBODIES A AND Bon 08-02-2023 IVAN TO SSA (RO) ANTIBODY Negative Normal Negative [facility] Comment on above: Performed By: #### L [id number] ####[facility] ([facility])[address] [place] [address] IVAN TO SSB ([place]) ANTIBODY Negative Normal Negative [facility] Comment on above: Performed By: #### L [id number] ####[facility] ([facility])[address] [place] [address] STREP PNEUMONIAE ANTIGEN, UR INEon 08-02-2023 STREPTOCOCCUS PNEUMONIAE AG PRESENCE IN URINE Negative Normal Negative [facility] Comment on above: Performed By: #### L [id number] #### [facility] ([facility]) [address] [place] [address] TROPONIN Ion 08-02-2023 Troponin I.cardiac [Mass/Vol] 0.03 ng/mL Normal 0.00-0.04 [facility] Comment on above: Performed By: #### L [id number] ####[facility] ([facility])[address] [place] [address] 30on 08-01-2023 30 The patient is Moder [...] ensuring proper positioning, support, and education. Normal [facility] APTTon 08-01-2023 ACTIVATED PARTIAL THROMBOPLASTIN TIME IN PPP BY COAGULATION ASSAY 24.1 Seconds Low 25.0-35.0 [facility] Comment on above: Result Comment: Clin ical significance of the APTT is questionable in the presence of heparin. Performed By: #### L [id number] #### [facility] ([facility]) [address] [place] [address] ARTERIAL BLOOD GAS WITH CO-O XIMETRYon 08-01-2023 Base excess Calc (Bld) [Moles/Vol] 20.9 mmol/L High -2.0-3.0 [facility] Comment on above: Order Comment: bipap Performed By: #### L [id number] #### [facility] ([facility]) [address] [place] [address] CARBOXYHEMOGLOBIN/H EMOGLOBIN TOTAL % IN BLOOD 1.5 % Normal 0.0-3.0 [facility] Comment on above: Order Comment: bipap Performed By: #### L [id number] #### [facility] ([facility]) [address] [place] [address] CO2 (Bld) [Partial pressure] 58 mm[Hg] Critically high 35-48 [facility] Comment on above: Order Comment: bipap Performed By: #### L [id number] #### [facility] ([facility]) [address] [place] [address] DEOXYGENATED HEMOGLOBIN IN BLOOD 5.4 % High 1-5 [place] Comment on above: Order Comment: bipap Performed By: #### L [id number] #### [facility] [address] [place] [address] FIO2 40 % Normal [facility] Comment on above: Order Comment: bipap Performed By: #### L [id number] #### [facility] [address] [place] [address] HCO3 (Bld) [Moles/Vol] 48.5 mmol/L High 21.0-28.0 [facility] Comment on above: Order Comment: bipap Performed By: #### L [id number] #### [facility] ([facility]) [address] [place] [address] Hemoglobin (Bld) [Mass/Vol] 18.3 g/dL Critically high 11.7-17.4 [facility] Comment on above: Order Comment: bipap Performed By: #### L [id number] #### [facility] ([facility]) [address] [place] [address] METHEMOGLOBIN/100 IN BLOOD 0.8 % Normal 0.0-1.5 [facility] Comment on above: Order Comment: bipap Performed By: #### L [id number] #### [facility] ([facility]) [address] [place] [address] Oxygen (Bld) [Partial pressure] 66 mm[Hg] Low 83-100 [facility] Comment on above: Order Comment: bipap Performed By: #### L [id number] #### [facility] ([facility]) [address] [place] [address] OXYGEN SATURATION (%) IN ARTERIAL BLOOD 94.5 % Normal 94.0-98.0 [facility] Comment on above: Order Comment: bipap Performed By: #### L [id number] #### [facility] ([facility]) [address] [place] [address] OXYGENATED HEMOGLOBIN IN BLOOD 92.3 % Normal 90.0-95.0 [place] Comment on above: Order Comment: bipap Performed By: #### L [id number] #### [facility] ([facility]) [address] [place] [address] pH (Bld) 7.53 [pH] High 7.35-7.45 [facility] Comment on above: Order Comment: bipap Performed By: #### L [id number] #### [facility] ([facility]) [address] [place] [address] RESPIRATORY RATE 14 Normal [facility] Comment on above: Order Comment: bipap Performed By: #### L [id number] #### [facility] ([facility]) [address] [place] [address] SOURCE OF OXYGEN Bi-PAP Normal [facility] Comment on above: Order Comment: bipap Performed By: #### L [id number] #### [facility] ([facility]) [address] [place] [address] B-TYPE NATRIURETIC PEPTIDEon 08-01-2023 Natriuretic peptide B (Bld) [Mass/Vol] 145 pg/mL High 0-100 [facility] Comment on above: Performed By: #### L [id number] #### [facility] ([facility]) [address] [place] [address] BLOOD CULTUREon 08-01-2023 Bacteria identified Cx Nom (Bld) No growth at 5 days Normal [place] Comment on above: Performed By: #### L [id number] #### [facility] ([facility]) [address] [place] [address] CBC WITH AUTO DIFFERENTIALon 08-01-2023 Basophils (Bld) [#/Vol] 0.02 10*3/uL Normal 0.00-0.20 [facility] Comment on above: Performed By: #### L [id number] #### [facility] [address] [place] [address] Basophils/100 WBC (Bld) 0.2 % Normal 0.0-1.0 [facility] Comment on above: Performed By: #### L [id number] #### [facility] [address] [place] [address] Eosinophils (Bld) [#/Vol] 0.01 10*3/uL Normal 0.00-0.50 [facility] Comment on above: Performed By: #### L [id number] #### [facility] [address] [place] [address] Eosinophils/100 WBC (Bld) 0.1 % Normal 0.0-6.0 [facility] Comment on above: Performed By: #### L [id number] #### [facility] [address] [place] [address] Erythrocyte distribution width (RBC) [Ratio] 13.2 % Normal 11.5-15.0 [facility] Comment on above: Performed By: #### L [id number] #### [facility] [address] [place] [address] ERYTHROCYTE MEAN CORPUSCULAR HEMOGLOBIN CONCENTRATION (G/DL) BY AUTOMATED 33.1 g/dL Normal 32.0-35.0 [place] Comment on above: Performed By: #### L [id number] #### [facility] [address] [place] [address] Hematocrit (Bld) [Volume fraction] 54.1 % High 36.0-48.0 [facility] Comment on above: Performed By: #### L [id number] #### [facility] ([facility]) [address] [place] [address] Hemoglobin (Bld) [Mass/Vol] 17.9 g/dL High 12.0-15.0 [facility] Comment on above: Performed By: #### L [id number] #### [facility] ([facility]) [address] [place] [address] Immature granulocytes (Bld) [#/Vol] 0.10 10*3/uL Normal 0.00-0.20 [facility] Comment on above: Performed By: #### L [id number] #### [facility] ([facility]) [address] [place] [address] Immature granulocytes/100 WBC (Bld) 1.1 % High 0.0-1.0 [facility] Comment on above: Performed By: #### L [id number] #### [facility] ([facility]) [address] [place] [address] Lymphocytes (Bld) [#/Vol] 0.40 10*3/uL Low 1.20-4.00 [facility] Comment on above: Performed By: #### L [id number] #### [facility] ([facility]) [address] [place] [address] Lymphocytes/100 WBC (Bld) 4.2 % Low 20.0-45.0 [facility] Comment on above: Performed By: #### L [id number] #### [facility] ([facility]) [address] [place] [address] MCH (RBC) [Entitic mass] 30.6 pg Normal 27.0-33.0 [facility] Comment on above: Performed By: #### L [id number] #### [facility] ([facility]) [address] [place] [address] MCV (RBC) [Entitic vol] 92.5 fL Normal 82.0-98.0 [facility] Comment on above: Performed By: #### L [id number] #### [facility] ([facility]) [address] [place] [address] Monocytes (Bld) [#/Vol] 0.50 10*3/uL Normal 0.10-1.00 [facility] Comment on above: Performed By: #### L [id number] #### [facility] ([facility]) [address] [place] [address] Monocytes/100 WBC (Bld) 5.3 % Normal 5.0-12.0 [facility] Comment on above: Performed By: #### L [id number] #### [facility] ([facility]) [address] [place] [address] Neutrophils (Bld) [#/Vol] 8.47 10*3/uL High 1.60-7.60 [facility] Comment on above: Performed By: #### L [id number] #### [facility] ([facility]) [address] [place] [address] Neutrophils/100 WBC (Bld) 89.1 % High 40.0-72.0 [facility] Comment on above: Performed By: #### L [id number] #### [facility] ([facility]) [address] [place] [address] NRBC (PER 100 WBCS) BY AUTOMATED COUNT 0.0 % Normal 0 [facility] Comment on above: Performed By: #### L [id number] #### [facility] ([facility]) [address] [place] [address] PLATELETS (10*3/UL) IN BLOOD AUTOMATED COUNT 265 10*3/uL Normal 150-400 [facility] Comment on above: Performed By: #### L [id number] #### [facility] ([facility]) [address] [place] [address] RBC (Bld) [#/Vol] 5.85 10*6/uL High 3.80-5.00 [facility] Comment on above: Performed By: #### L [id number] #### [facility] ([facility]) [address] [place] [address] WBC (Bld) [#/Vol] 9.50 10*3/uL Normal 4.00-10.60 [facility] Comment on above: Performed By: #### L [id number] #### [facility] ([facility]) [address] [place] [address] COMPREHENSIVE METABOLIC PANE Matty 08-01-2023 Albumin [Mass/Vol] 3.5 g/dL Normal 3.5-5.7 [facility] Comment on above: Performed By: #### L [id number] #### [facility] ([facility]) [address] [place] [address] ALP [Catalytic activity/Vol] 54 U/L Normal 34-104 [facility] Comment on above: Performed By: #### L [id number] #### [facility] ([facility]) [address] [place] [address] ALT [Catalytic activity/Vol] 10 U/L Normal 7-52 [facility] Comment on above: Performed By: #### L [id number] #### [facility] ([facility]) [address] [place] [address] Anion gap [Moles/Vol] 10 mmol/L Normal 7-20 [facility] Comment on above: Performed By: #### L [id number] #### [facility] ([facility]) [address] [place] [address] AST [Catalytic activity/Vol] 8 U/L Low 13-39 [facility] Comment on above: Performed By: #### L [id number] #### [facility] ([facility]) [address] [place] [address] Bilirubin [Mass/Vol] 0.9 mg/dL Normal 0.3-1.0 [facility] Comment on above: Performed By: #### L [id number] #### [facility] ([facility]) [address] [place] [address] Calcium [Mass/Vol] 9.0 mg/dL Normal 8.6-10.3 [facility] Comment on above: Performed By: #### L [id number] #### [facility] ([facility]) [address] [place] [address] Chloride [Moles/Vol] 90 mmol/L Low 98-107 [facility] Comment on above: Performed By: #### L [id number] #### [facility] ([facility]) [address] [place] [address] CO2 [Moles/Vol] 40 mmol/L High 21-31 [facility] Comment on above: Performed By: #### L [id number] #### [facility] ([facility]) [address] [place] [address] Creatinine [Mass/Vol] 0.60 mg/dL Normal 0.60-1.20 [facility] Comment on above: Performed By: #### L [id number] #### [facility] ([facility]) [address] [place] [address] GLOMERULAR FILTRATION RATE ML/MIN/1.73 SQ M.PREDICTED 111.3 mL/min/1.73m*2 Normal >60.0 [facility] Comment on above: Result Comment: The [facility]???s estimated glomerular filtration rate (eGFR) will no [...] individuals. Performed By: #### L [id number] #### [facility] ([facility]) [address] [place] [address] Glucose [Mass/Vol] 280 mg/dL High 70-100 [facility] Comment on above: Performed By: #### L [id number] #### [facility] ([facility]) [address] [place] [address] Potassium [Moles/Vol] 3.5 mmol/L Normal 3.5-5.1 [facility] Comment on above: Performed By: #### L [id number] #### [facility] ([facility]) [address] [place] [address] Protein [Mass/Vol] 6.4 g/dL Normal 6.0-8.3 [facility] Comment on above: Performed By: #### L [id number] #### [facility] ([facility]) [address] [place] [address] Sodium [Moles/Vol] 136 mmol/L Normal 136-145 [facility] Comment on above: Performed By: #### L [id number] #### [facility] ([facility]) [address] [place] [address] Urea nitrogen [Mass/Vol] 27 mg/dL High 7-25 [facility] Comment on above: Performed By: #### L [id number] #### [facility] ([facility]) [address] [place] [address] UREA NITROGEN/CREATININE (MASS RATIO) IN SER/PLAS 45.0 Normal [facility] Comment on above: Performed By: #### L [id number] #### [facility] ([facility]) [address] [place] [address] CONSULTon 08-01-2023 CONSULT ----- ----- Attestation signed by Db Hicks MD at [...] of elevated RVSP. Plan on RHC tomorrow. ----- Cardiology Consult Note Reason for Consult: SOB HPI: Daniel Lynn is a 47 y.o. female with PMH of Asthma, who presented intimally to [facility] on 07/25 due to SOB that started [...] to 76 mmHg. She was transferred to [facility] for Right heart Catheterization. She reports being [...] No family history on file. Allergies Bactrim [sulfamethoxazole-trimeth oprim], Lisinopril, and Penicillins Medications Medications Prior to [...] likely d (more content not included)... Normal [facility] EXTRACTABLE NUCLEAR ANTIGEN ANTIBODIESon 08-01-2023 ANTI SM AB Negative Normal [facility] Comment on above: Performed By: #### L [id number] #### [facility] ([facility]) [address] [place] [address] ANTI SM/ANTIRNP AB Negative Normal [facility] Comment on above: Performed By: #### L [id number] #### [facility] ([facility]) [address] [place] [address] GRAM STAINon 08-01-2023 GRAM STAIN RESULT Normal [facility] Comment on above: Result Comment: Spec imen contains >25 Epithelial Cells/LPF, unsuitable for culture. Please submit a new specimen >25 Squamous Epithelial Cells Per Low Power Field >25 Polys Per Low Power Field Many Gram positive cocci in pairs Many Gram positive bacilli Performed By: #### L [id number] #### [facility] ([facility]) [address] [place] [address] HPon 08-01-2023 HP ----- ----- Attestation signed by Db Hicks MD at [...] of elevated RVSP. Plan on RHC tomorrow. ----- Cardiology Consult Note Reason for Consult: SOB HPI: Daniel Lynn is a 47 y.o. female with PMH of Asthma, who presented intimally to [facility] on 07/25 due to SOB that started [...] to 76 mmHg. She was transferred to [facility] for Right heart Catheterization. She reports being [...] No family history on file. Allergies Bactrim [sulfamethoxazole-trimeth oprim], Lisinopril, and Penicillins Medications Medications Prior to [...] likely d (more content not included)... Normal [facility] HP ----- ----- Attestation signed by Lissette Delgado MD at [...] for RHC for further evaluation. Continue diuretics. ----- Adult ICU History & Physical Patient - Daniel Lynn Age - 47 y.[facility] 1975 [id number] Date of Admission - 08/01/2023 1:47 AM Chief Complaint Initial presentation to [facility] with worsening shortness of breath, transferred to [facility] for right heart cath History of Present Illness 47-year-old female who presented to [facility] on 07/25 with 4 days of worsening [...] following the patient's, who recommended transfer to [facility] for right heart cath. At [facility] Medication at [facility]: Tylenol, DuoNebs, Xanax, Lovenox for DVT prophylaxis, [...] for: PREALBUMIN, TSH, T3FREE, FREET4, CORTISOL, FEV1, SGV1DSS, DLCO, RVSP, HDL, LDL No results found for: [id number], IRON, (more content not included)... Normal [facility] MAGNESIUMon 08-01-2023 Magnesium [Mass/Vol] 1.9 mg/dL Normal 1.9-2.7 [facility] Comment on above: Performed By: #### L [id number] ####[facility] ([facility])[address] [place] [address] MPO/PR3 REFLEX TO ANCAon MYELOPEROXIDASE (MPO) AB, IGG 0 AU/mL Normal 0-19 [facility] Comment on above: Result Comment: INTE RPRETIVE INFORMATION: Myeloperoxidase Abs, IgG 19 AU/mL or Less ......... Negative 20-25 AU/mL .............. Equivocal 26 AU/mL or Greater ...... Positive Approximately 90% of patients with a P-ANCA pattern by IFA have antibodies specific for MPO. Performed By: #### L [id number] #### [facility] ([facility]) [address] [place] [address] SERINE PROTEINASE 3 (PR3) AB, IGG 1 AU/mL Normal 0-19 [facility] Comment on above: Result Comment: Myeloperoxidase (MPO) [...] have antibodies specific for PR3. Performed By: [facility] [address] [place] [id number] Trade Clerk: Saturnino Rai MD, PhD CLIA Number: [id number] Performed By: #### L [id number] #### [facility] [address] [place] [address] PHOSPHORUSon 08-01-2023 Magnesium [Mass/Vol] 3.8 mg/dL Normal 2.5-5.0 [facility] Comment on above: Performed By: #### L [id number] #### [facility] ([facility]) [address] [place] [address] POCT GLUCOSE METER UNSOLICIT ED RESULTSon 08-01-2023 Glucose [Mass/Vol] 310 mg/dL High 70-105 [facility] Comment on above: Order Comment: Waive d Testing in the ED is performed under the ED CLIA certificate #[id number]. Result Comment: [email or web address] Performed By: #### L [id number] #### [facility] ([facility]) [address] [place] [address] Glucose [Mass/Vol] 233 mg/dL High 70-105 [facility] Comment on above: Order Comment: Waive d Testing in the ED is performed under the ED CLIA certificate #[id number]. Result Comment: [email or web address] Performed By: #### L [id number] #### [facility] ([facility]) [address] [place] [address] PROCALCITONIN TESTon 023 PROCALCITONIN IN BLOOD 0.03 ng/mL Normal 0.00-0.10 [facility] Comment on above: Result Comment: Susp ected Lower Respiratory Tract Infection: 0.1-0.25 ng/mL - Low likelihood [...] PCT<0.5ng/mL Performed By: #### L [id number] #### [facility] ([facility]) [address] [place] [address] PROTIME-INRon 08-01-2023 INR IN PPP BY COAGULATION ASSAY 1.10 Normal 0.90-1.10 [facility] Comment on above: Result Comment: ACCC P RECOMMENDED INR FOR WARFARIN THERAPY CONDITION INR PROPHYLAXIS OF VENOUS [...] 1995;108:231S-246S. Performed By: #### L [id number] #### [facility] ([place]) [address] [place] [address] PROTHROMBIN TIME (PT) IN PPP BY COAGULATION ASSAY 14.3 Seconds Normal 12.3-14.8 [facility] Comment on above: Performed By: #### L [id number] #### [facility] ([facility]) [address] [place] [address] TROPONIN Ion 08-01-2023 Troponin I.cardiac [Mass/Vol] 0.02 ng/mL Normal 0.00-0.04 [facility] Comment on above: Performed By: #### L [id number] #### [facility] ([facility]) [address] [place] [address] [id number] 04-18-2020 SARS-CoV-2 Not Detected Normal Not Detected [facility] Comment on above: Result Comment: (NOT E) This test was developed and its performance characteristics determined by [employer]. This test has not been FDA cleared [...] detected) result in this assay. Performed At: [facility] [address] [facility], [place] [id number] Felisha Martinez MD Ph:[phone] Performed By: #### A COV #### [facility] [address] [place] [address] Medical Research Assistant: Lonnie Lozano MD Encounters Encounter Date Encounter Type Care Provider Facility Start: 09-04-2023 End: 09-04-2023 [facility] Start: 08-29-2023 End: 08-30-2023 ambulatory [facility] Start: 08-28-2023 End: 08-28-2023 ambulatory CHRIS MOUKARBEL [facility] Start: 08-08-2023 Evaluation and management of inpatient CARLEY GOODRICH [facility] Start: 08-07-2023 Evaluation and management of inpatient VENTURA ARAUJO [facility] Start: 08-07-2023 Evaluation and management of inpatient DB HICKS [facility] Start: 08-02-2023 Evaluation and management of inpatient LISSETTE DELGADO [facility] Start: 08-02-2023 ambulatory MCLAUGHLIN ANA DELGADO [facility] Start: 08-02-2023 Evaluation and management of inpatient MCLAUGHLIN ANA DELGADO [facility] Start: 08-02-2023 Evaluation and management of inpatient MCLAUGHLIN ANA DELGADO [facility] Start: 08-01-2023 End: 08-09-2023 Evaluation and management of inpatient OLMAN MILESP [facility] Start: 04-15-2020 End: 04-16-2020 Patient encounter procedure BRANDIE [facility] Start: 04-15-2020 End: 04-15-2020 Subsequent hospital visit by physician [facility] Comment on above: Arrived Procedures Date Procedure Procedure Detail Performing Clinician Start: 04-15-2020 COVID-19 AMBULATORY [facility] Plan of Treatment Date Care Activity Detail Author Start: 05-18-2020 Influenza vaccination Flu vaccine (# 1) [place], [place] Start: 2015 Lipid panel Lipid screen [place], [place] Start: 1996 Screening for malign ant neoplasm of cervix Cervical cancer screen [place], [place] Start: 1994 DTaP/Tdap/Td vaccine (1 - Tdap) DTaP/Tdap/Td vaccine (1 - Tdap) [place], [place] Start: 1990 HIV screening HIV screen [facility] [place] End: 04-15-2020 Covid-19 Ambulatory Covid-19 Ambulatory Lab Routine Once for 1 Occurrences starting 04/15/2020 until 04/15/2020 [place] Comment on above: Once for 1 Occurrenc es starting 04/15/2020 until 04/15/2020 Covid-19 Ambulatory Covid-19 Amb ulatory Lab Routine 04/15/2020 6:59 AM EDT [place], [place] Payers Date Payer Category Payer Private Health Insurance [id number] 2014 Unknown [id number] 2014 Unknown [employer] [address] [id number] 2014-Present [phone] [address] [place] [address] [id number] 1975 Unknown [id number] Social History Date Type Detail Facility Tobacco smoking status NHIS Unknown if ev er smoked [place], [place] Sex Assigned At Not on file [place], [place] Clinical Notes 08-02-2023 to 08-28-2023 Note Date & Type Note Facility 08-28-2023 Note [facility] Subjective Daniel Lynn is a 47 y.o. year old female patient being seen for follow up [facility]. Says her insurance will only pay for [...] evidence of ostium secundum ASD with significant jlpf-[id number]-[id number] shunting across it, severe pulmonary hypertension and [...] pulmonary AV malformation or other source of dajk-ua-cjucw shunting. She was started on therapy with [...] 0.42 (L) 08/09/2023 (more content not included)... [facility] 08-09-2023 Note [facility] [phone] and faxed script /f2f [phone] They are able to set up home . Patient given tank and advised to call [facility] once home( in route) Received fax, on phone with rep at [facility]. Received confirmation they have order and will set up for patient, [facility] 08-09-2023 Note Met with Patient bed side [...] steriods she is on at hospital'. No C referrals sent as Pt declines HHC arrangements. Medical team notified of Pt decision [facility] 08-09-2023 Note Hospital Medicine Discharge Summary Final Discharge Diagnosis: Acute hypoxic respiratory failure, likely due to Pulmonary Hypertension Large secundum ASD with bidirectional flow. The largest septal defect measured 3.5 cm, confirmed by Cardiac MRI & MATT New onset DM-II Admission Diagnosis: Dyspnea on exertion [R06.09] Hospital course: 47-year-old female who presented to [facility] on 07/25 with 4 days of worsening [...] following the patient's, who recommended transfer to [facility] for right heart cath. At [facility] Medication at [facility]: Tylenol, DuoNebs, Xanax, Lovenox for DVT prophylaxis, [...] COVID-pneumonia. Patient was transferred to medical ICU [facility] for hypoxic respiratory failure likely due to [...] Center 08/28/2023 2:15 PM Chris Roger MD [facility] Your medication list START taking these [...] Your Medications These medications were sent to [facility]/pharmacy #[id number] - [place], [place] - [address] [address] furosemide 40 mg tablet insulin detemir (more content not included)... [facility] 08-09-2023 Note ------ Attestation signed by Kvng Kumar MD at 08/09/2023 11:18 PM I reviewed the salient portions of the patient history. Agree with the noted assessment and plan. Kvng Kumar MD [facility] Pulmonary and Critical Care Medicine [...] Date Asthma COPD (chronic obstructive pulmonary disease) ([facility]) Diabetes mellitus ([facility]) Hypertension MTHFR gene mutation Obesity Allergies Allergen [...] shifts: In: 1 (more content not included)... [facility] 08-09-2023 Note 08/09/23 0920 Home Oxygen Therapy Evaluation Pulse Oximetry on room air at Rest 94 Pulse Ox on O2 with nasal cannula while at rest 94 (3 lpm) Pulse Ox on room air while walking 84 Pulse Ox on O2 with nasal cannula while walking 94 (3 lpm) Patient Qualification for home oxygen Qualifies Patient qualifies for home oxygen 3 lpm. [facility] 08-08-2023 Note Hospital Medicine Daily Progress Note - 08/08/2023 1:15 PM; Room: [address] [place] [address] Admission: 08/01/2023 1:47 AM; Length of stay: 7 days THE HOSPITALIST TEAM PREFERS TO USE [employer] FOR COMMUNICATION 7AM-7PM. IF I DO NOT RESPOND WITHIN 15 MINUTES, PLEASE PAGE ME/CALL THROUGH THE DRY WALL FINISHER. FROM 7PM-7AM, PLEASE PAGE [phone](COVR) Code Status: Full Code Barriers to Discharge: [...] Results from last 7 days Lab Units 08/08/236 08/07/2342608/06/23 0414 SODIUM mmol/L 135* 134* 135* POTASSIUM mmol/L [...] TSH 0.56 08/03/2023 No results found for: [id number], IRON, TIBC, C3, C4, PHANI, CANCA, ASO, [...] vascular detail. FI (more content not included)... [facility] 08-08-2023 Note Nutrition Screening Assessment: Patient Name: Daniel Lynn : 1975 Date of Assessment: 08/08/23 Nutrition re-screen completed Past Medical History: Diagnosis Date Asthma COPD (chronic obstructive pulmonary disease) ([facility]) Diabetes mellitus ([facility]) Hypertension MTHFR gene mutation Obesity Information obtained [...] Comments: Entree salad, tomato, cucumber, ranch and ukrainian dressing, diet coke, quesadilla with grilled chicken [...] with questions and contact the dietitian via [employer] chat 8A-4P Sunday-Sunday. Or call the dietitian's office at extension [phone]. For weekends/holidays, the dietitian's can be reached by paging [phone] from 9A-3P. Unable to be reached via [employer] chat on Sunday & .) [facility] 08-08-2023 Note ------ Attestation signed by Raza Leonard MD at 08/08/2023 12:46 PM I reviewed the salient portions of the patient history. I have seen and examined the patient during rounds with the resident/fellow. I repeated the askew components of the exam. Agree with the noted assessment and plan. Raza Leonard MD [facility] Pulmonary interventional and Critical Care [...] Date Asthma COPD (chronic obstructive pulmonary disease) ([facility]) Diabetes mellitus ([facility]) Hypertension MTHFR gene mutation Obesity Allergies Allergen [...] MSK: no my (more content not included)... [facility] 08-08-2023 Note Occupational Therapy Occupational Therapy Evaluation Patient Name: Daniel Lynn : 1975 Today's Date: 08/08/2023 Time In: 742 Time Out: 754 47 y/o female adm from OSH with pneumonia and for workup for atrial septal defect. [facility] 08/04/23 General Subjective: friendly and cooperative, reports [...] Level of Function Prior Function Level of Platinum: Independent with ADLs and functional transfers, Independent [...] Eating meals?: None (Independent) Total Score OT [facility]: 24 Assessment/Plan OT Assessment OT Education/Comments: may benefit to use shower chair, brief discussion about ws/ec/pacing with good verbal return Plan OT Plan: No skilled OT Equipment Recommended: (ssc) OT - Discharge Recommendations Placed: Yes OT Goals Multi-Disciplinary Problems (from Occupational Therapy) Active Problems Not on file [facility] 08-08-2023 Note ------ Attestation signed by Isai [...] Temporal 84 17 93 % -- 08/07/23 194 110/65 -- -- 93 19 94 % -- 08/07/23 193 108/67 -- -- 82 20 (!) 88 [...] Transesophageal Echo (MATT) Result Date: 08/07/2023 1 [facility] Heart Station [address] [place] [address] [phone] (fax) Transesophageal Echocardiogram-[facility] Name: DANIEL LYNN Study Date: 08/07/2023 04:01 PM B/P: 124 mmHg/80 mmHg HR: 97 bpm Date of : 1975 Location: [facility] Height: 62 in. Age: 47 year(s) Patient Room: 3233 Weight: 268 lb. Gender: Female Patient Status: InPt BSA: 2.16 m2 Indication: pre-op ASD Examination: MATT/Limited Doppler/CFI, 3D images Image Quality: Good Patient Consent: Informed, written consent was obtained for the procedure Exam Location: A MATT was performed in the [facility] without complications Anesthesia Pharyngeal anesthesia with viscous [...] aortic valve regurgi (more content not included)... [facility] 08-07-2023 Note Patient: Daniel rizvi Procedure Information Date/Time: 08/07/23 1000 Procedures: Coronary angiography Right heart cath Location: [facility] PROCUREMENT MANAGER 2 BIPLANE / [facility] HV VASCULAR LAB (Cath) Providers: Chris Roger MD [...] with fellow and attending. Additional Equipment Requests [facility] 08-07-2023 Note H&P reviewed. RHC an d cardiac CT c/w PH and ASD. Plan for RHC/coronary angiogram for assessment of ASD closure. Procedures' details, risks and benefits discussed with the patient and she's agreeable. [facility] 08-07-2023 Note Physical Therapy Physical Therapy Evaluation Patient Name: Daniel Lynn : 1975 Today's Date: 08/07/2023 HX: 47 y/o female adm from OSH with pneumonia and for workup for atrial septal defect. RHC 08/04/23, L HC scheduled for today. General Family/Caregiver Present: No Subjective: Pt seen for inital evaluation in MICU, up in recliner following[facility] 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 [facility] 08-07-2023 Note ------ Attestation signed by Isai [...] 112/71 -- -- 73 14 94 % 08/06/231 -- -- -- 75 20 92 % [...] Bubble Study Result Date: 08/02/2023 1 [facility] Heart Station [address] [place] [address] [phone] (fax) Echocardiogram-[facility] Name: DANIEL LYNN Study Date: 08/02/2023 09:04 AM B/P: 121 mmHg/88 mmHg HR: 66 bpm Date of : 1975 Location: [facility] Height: 62 in. Age: 47 year(s) Patient [...] tricuspid valve debora (more content not included)... [facility] 08-07-2023 Note ------ Attestation signed by Kvng Kumar MD at 08/07/2023 11:57 PM I reviewed the salient portions of the patient history. I have seen and examined the patient during rounds with the resident/fellow. I repeated the askew components of the exam. Agree with the noted assessment and plan. Kvng Kumar MD [facility] Pulmonary and Critical Care Medicine ------ Medical ICU Progress Note Patient - Daniel Lynn Age - 47 y.o. - 1975 N - [id number] [facility] # - [id number] Date of Admission - 08/01/2023 1:47 AM HPI/Hospital Course Subjective 47-year-old female who presented to [facility] on 07/25 with 4 days of worsening [...] following the patient's, who recommended transfer to [facility] for right heart cath. At [facility] Medication at [facility]: Tylenol, DuoNebs, Xanax, Lovenox for DVT prophylaxis, [...] COVID-pneumonia. Patient was transferred to medical ICU [facility] for hypoxic respiratory failure likely due to [...] 24 hours) at (more content not included)... [facility] 08-06-2023 Note ------ Attestation signed by Db [...] Bubble Study Result Date: 08/02/2023 1 [facility] Heart Station [address] [place] [address] [phone] (fax) Echocardiogram-[facility] Name: DANIEL LYNN Study Date: 08/02/2023 09:04 AM B/P: 121 mmHg/88 mmHg HR: 66 bpm Date of : 1975 Location: [facility] Height: 62 in. Age: 47 year(s) Patient [...] Global left ventricu (more content not included)... [facility] 08-06-2023 Note ------ Attestation signed by Lissette [...] Course Subjective 47-year-old female who presented to [facility] on 11/8 with 4 days of worsening shortness of [...] following the patient's, who recommended transfer to [facility] for right heart cath. At [facility] Medication at [facility]: Tylenol, DuoNebs, Xanax, Lovenox for DVT prophylaxis, [...] COVID-pneumonia. Patient was transferred to medical ICU [facility] for hypoxic respiratory failure likely due to [...] Decrease breath sounds (more content not included)... [facility] 08-05-2023 Note Subjective Daniel Lynn is a 47 y.o. female with PMH of Asthma and Obesity who was initially evaluated in [place] on 07/25 with with 4 days of [...] the patient and they recommended transfer to [facility] for right heart catherization. She arrived to [facility] 08/01 where she was admitted to the [...] Temp Temp src Pulse Resp SpO2 Weight 11/19/23 0823 -- -- -- -- -- 92 [...] Neurological: Mental Stat (more content not included)... [facility] 08-05-2023 Note Subjective Daniel Lynn is a 47 y.o. female with PMH of Asthma and Obesity who was initially evaluated in [place] on 07/25 with with 4 days of [...] the patient and they recommended transfer to [facility] for right heart catherization. She arrived to [facility] 08/01 where she was admitted to the [...] Neurological: Mental Stat (more content not included)... [facility] 08-05-2023 Note Cardiology Progress Note Subjective Subjective: [...] -- -- 82 19 95 % -- 08/04/231999 123/60 -- -- 91 25 91 % [...] Bubble Study Result Date: 08/02/2023 1 [facility] Heart Station [address] [place] [address] [phone] (fax) Echocardiogram-[facility] Name: DANIEL LYNN Study Date: 08/02/2023 09:04 AM B/P: 121 mmHg/88 mmHg HR: 66 bpm Date of : 1975 Location: [facility] Height: 62 in. Age: 47 year(s) Patient [...] thickness is mildl (more content not included)... [facility] 08-05-2023 Note ------ Attestation signed by Tucker [...] We will obtain a baseline PCO2, and cyber intel planner PCO2 without using BiPAP, to see if we can qualify her for BiPAP at home. Clinically patient is at very high risk for obstructive sleep apnea , and also have consistent history. ------ Medical ICU Progress Note Patient - Daniel Lynn Age - 47 [facility] 1975 [id number] Date of Admission - 08/01/2023 1:47 AM HPI/Hospital Course Subjective 47-year-old female who presented to [facility] on 07/25 with 4 days of worsening [...] following the patient's, who recommended transfer to [facility] for right heart cath. At [facility] Medication at [facility]: Tylenol, DuoNebs, Xanax, Lovenox for DVT prophylaxis, [...] COVID-pneumonia. Patient was transferred to medical ICU [facility] for hypoxic respiratory failure likely due to [...] via nasal cannula. (more content not included)... [facility] 08-04-2023 Note ------ Attestation signed by Isai [...] Bubble Study Result Date: 08/02/2023 1 1 [facility] Heart Station [address] [place] [address] [phone] (fax) Echocardiogram-[facility] Name: DANIEL LYNN Study Date: 08/02/2023 09:04 AM B/P: 121 mmHg/88 mmHg HR: 66 bpm Date of : 1975 Location: [facility] Height: 62 in. Age: 47 year(s) Patient [...] Value Normal Value (more content not included)... [facility] 08-04-2023 Note ------ Attestation signed by Tucker [...] Lynn Age - 47 y.o. - 1975 [facility] # - [id number] Date of Admission - 08/01/2023 1:47 AM HPI/Hospital Course Subjective 47-year-old female who presented to [facility] on 07/25 with 4 days of worsening [...] following the patient's, who recommended transfer to [facility] for right heart cath. At [facility] Medication at [facility]: Tylenol, DuoNebs, Xanax, Lovenox for DVT prophylaxis, [...] COVID-pneumonia. Patient was transferred to medical ICU [facility] for hypoxic respiratory failure likely due to [...] is 112/76 a (more content not included)... [facility] 08-03-2023 Note ------ Attestation signed by Lissette [...] Lynn Age - 47 [facility]. [facility] 1975 [id number] Date of Admission - 08/01/2023 1:47 AM HPI/Hospital Course Subjective 47-year-old female who presented to [facility] on 07/25 with 4 days of worsening [...] following the patient's, who recommended transfer to [facility] for right heart cath. At [facility] Medication at [facility]: Tylenol, DuoNebs, Xanax, Lovenox for DVT prophylaxis, [...] COVID-pneumonia. Patient was transferred to medical ICU [facility] for hypoxic respiratory failure likely due to [...] move all extremities, (more content not included)... [facility] 08-03-2023 Note ------ Attestation signed by bD Hicks MD at 08/07/2023 9:53 AM By [...] ???F) -- 79 21 (!) 88 % 08/02/23 231 -- -- -- -- -- 92 % [...] Bubble Study Result Date: 08/02/2023 1 1 [facility] Heart Station [address] [place], [place] [phone] (fax) Echocardiogram-[facility] Name: DANIEL LYNN Study Date: 08/02/2023 09:04 AM B/P: 121 mmHg/88 mmHg HR: 66 bpm Date of : 1975 Location: [facility] Height: 62 in. Age: 47 year(s) Patient [...] severely enlarged. Se (more content not included)... [facility] 08-02-2023 Note Patient: Daniel rizvi Procedure Information Date/Time: 08/02/23 1610 Procedure: Right heart cath Location: [facility] PROCUREMENT MANAGER 3 / [facility] VASCULAR LAB (Cath) Providers: Chris Roger MD [...] with fellow and attending. Additional Equipment Requests [facility] 08-02-2023 Note Pharmacy Dosing Serv ice - Vancomycin Initial Consult Note Pharmacy has been consulted for the dosing and evaluation of Drug: Vancomycin Indication: pneumonia AUC 400-600 mg*hr/L and trough 10-20 mcg/mL Other Antimicrobial Regimens: cefepime 2g q8h Labs and Renal Function Total body weight: 122 kg (268 lb 8.3 oz) [place] body weight: 50.1 kg (110 lb 7.9 [...] Assessment / Comments: - 47yoF transferred to [facility] from OSH and admitted to ICU 08/01 for acute hypoxic respiratory failure likely due to severe pulmonary hypertension and potential pneumonia. Viral panel at OSH positive for rhinovirus. Procal upon admission to [facility] 0.03. WBC increased from 9.5 to 12.17. [...] with comments or questions Thank you, Nakia Ag, 08/02/23 Plan discussed with Betsy Eckert PharmD [facility] 08-02-2023 Note ------ Attestation signed by Db [...] 69 20 (!) 87 % -- 08/01/23 230 -- -- 69 21 (!) 86 % -- 08/01/232221 -- -- -- -- 93 % -- [...] Neva Portillo MD PGY-2 Internal Medicine Resident [facility] 08-02-2023 Note ------ Attestation signed by Lissette [...] Lynn Age - 47 y.o. - 1975 [facility] # - [id number] Date of Admission - 08/01/2023 1:47 AM [...] mEq/L Final No results found for: PHVEN, RVY9AMS, PO2VEN, UVL7IZF, IONCALVEN CBC: Results from last 7 days [...] Infusions: As Need (more content not included)... 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 [facility]. provides no warranty or guarantee of the accuracy or completeness of information in this document.
== END 2023-10-03 19:55 | disposition home or self-care (01) ==
LOC: SLEEP 19:54
PROVIDERS: PCP Internal Medicine; Visit Provider Internal Medicine
DX: G47.11 Idiopathic hypersomnia with long sleep time (principal); G47.10 Hypersomnia, unspecified
CPT/HCPCS: 95810

== ENCOUNTER 2023-10-06 09:01 | Outpatient (OUT) | payer OTHER, SELFPAY ==
--- OUTSIDE RECORDS SUMMARY | 2023-10-06 09:06 | XMS_ITS | CCD ---
Author Name Unknown Address [address] [place] [address] Organization [facility] Care Team Providers Care Telephone Operator Chief Name Role Phone BRANDIE PACHECO Referring Unavailable [...] AMERICOCARLEY Attending Unavailable GILBERTKVNG Consulting Unavailable DB HIKCS Referring Unavailable MOUKARBELCHRIS Admitting Unavailable MOUKARBEL, CHRIS Attending Unavailable ALI, MCLAUGHLIN ANA Referring Unavailable MOUKARBEL, CHRIS Referring Unavailable ALI, MCLAUGHLIN ANA Referring Unavailable ALI, MCLAUGHLINASHLEY PEREZ Referring Unavailable Allergies Allergy Classification Reported Allergen(s) Allergy Type Date of Onset Reaction(s) Facility (1 source) Lisinopril; Translations: [LISINOPRIL] Drug Allergy 08-01-20 [facility] Repository (1 source) Penicillins; Translations: [PENICILLINS] Propensity to adverse reactions to drug (disorder) 08-01-20 [facility] Repository (1 source) Sulfamethoxazole / Trimethoprim; Translations: [SULFAMETHOXAZOLE-TR IMETHOPRIM] Drug Allergy 08-01-20 [facility] Repository Problems Active Problems Problem Classification [...] Test Name Value Interpretation Reference Range Facility Orders Onlyon 10-03-2023 Orders Only [id number] Shelly Lynn 1975 Date Provider Department [place] 10/03/2023 [facility] CR[facility] No family history on file Normal [facility] Prep for Procedureon 024 Prep for Procedure [id number] Shelly Lynn 1975 Date Provider Department Center 09/25/20[address] SHIRA JAMES C[address] [facility] No family history on file Normal [facility] Prep for Procedureon 023 Prep for Procedure [id number] Shelly Lynn 1975 Date Provider Department [place] 08/30/2023 CHRIS CANNON [facility] [place] Count No family history on file Normal [facility] Office Visiton 08-28-2023 Follow-up visit [id number] Shelly Lynn 1975 Date Provider Department Center 08/28/2023 CHRIS CANNON [facility] No family history on file Level of Service:17106 [place] OFFICE/OUTPATIENT ESTABLISHED HIGH MDM 40-54 MIN [facility] 30on 08-09-2023 30 Precipitator received VM f or patient stating she needs assistance with the medications she was discharged with. Precipitator reached out to patient who states that her INS will only cover 1/2 pill of Sildenafil per day. Patient continues to explain that she paid OOP for her first prescription of Sildenafil, but that she needs her Oracle Database Consultant to reach out to INS to discuss this and have it resolved, she reports that she plans to call Dr. Felder's office Sunday to have them assist. No other needs voiced at this time, marketing underwriter urged patient to call OTM line next week if she has any further issues with her medications. Normal [facility] 30 Problem: Pain - Adul t [...] and behaviors that affect risk of falls [place] fall precautions as indicated by assessment Educate patient/family on patient safety, including physical limitations Instruct patient to call for assistance with activity based on assessment Modify environment to reduce risk of injury Consider OT/PT consult to assist with strengthening/mobility Problem: Discharge Planning Goal: Discharge to home or other facility with appropriate resources Outcome: Progressing Flowsheets (Taken 08/09/2023 0830) Discharge to home or other facility with [...] mucous memb (more content not included)... Normal [facility] BASIC METABOLIC PANELon 11-2 Anion gap [Moles/Vol] 9 mmol/L Normal 7-20 [facility] Comment on above: Performed By: #### L [id number] #### [facility] ([facility] [address] [place] [address] Calcium [Mass/Vol] 8.7 mg/dL Normal 8.6-10.3 [facility] Comment on above: Performed By: #### L [id number] #### [facility] ([facility] [address] [place] [address] Chloride [Moles/Vol] 100 mmol/L Normal 98-107 [facility] Comment on above: Performed By: #### L [id number] #### [facility] ([facility] [address] [place] [address] CO2 [Moles/Vol] 30 mmol/L Normal 21-31 [facility] Comment on above: Performed By: #### L [id number] #### [facility] ([facility] [address] [place] [address] Creatinine [Mass/Vol] 0.42 mg/dL Low 0.60-1.20 [facility] Comment on above: Performed By: #### L [id number] #### [facility] ([facility] [address] [place] [address] GLOMERULAR FILTRATION RATE ML/MIN/1.73 SQ M.PREDICTED 121.3 mL/min/1.73m*2 Normal >60.0 [facility] Comment on above: Result Comment: The [facility]???s estimated glomerular filtration rate (eGFR) will [...] individuals. Performed By: #### L [id number] #### [facility] ([facility] [address] [place] [address] Glucose [Mass/Vol] 146 mg/dL High 70-100 [facility] Comment on above: Performed By: #### L [id number] #### [facility] ([facility] [address] [place] [address] Potassium [Moles/Vol] 3.7 mmol/L Normal 3.5-5.1 [facility] Comment on above: Performed By: #### L [id number] #### [facility] ([facility] [address] [place] [address] Sodium [Moles/Vol] 135 mmol/L Low 136-145 [facility] Comment on above: Performed By: #### L [id number] #### [facility] ([facility] [address] [place] [address] Urea nitrogen [Mass/Vol] 17 mg/dL Normal 7-25 [facility] Comment on above: Performed By: #### L [id number] #### [facility] ([facility] [address] [place] [address] UREA NITROGEN/CREATININE (MASS RATIO) IN SER/PLAS 40.5 Normal [facility] Comment on above: Performed By: #### L [id number] #### [facility] ([facility] [address] [place] [address] CBCon 08-09-2023 Erythrocyte distribution width (RBC) [Ratio] 13.1 % Normal 11.5-15.0 [facility] Comment on above: Performed By: #### L [id number] #### [facility] ([facility] [address] [place] [address] ERYTHROCYTE MEAN CORPUSCULAR HEMOGLOBIN CONCENTRATION (G/DL) BY AUTOMATED 32.6 g/dL Normal 32.0-35.0 [facility] Comment on above: Performed By: #### L [id number] #### [facility] ([facility] [address] [place] [address] Hematocrit (Bld) [Volume fraction] 43.5 % Normal 36.0-48.0 [facility] Comment on above: Performed By: #### L [id number] #### [facility] ([facility] [address] [place] [address] Hemoglobin (Bld) [Mass/Vol] 14.2 g/dL Normal 12.0-15.0 [facility] Comment on above: Performed By: #### L [id number] #### [facility] ([facility] [address] [place] [address] MCH (RBC) [Entitic mass] 30.3 pg Normal 27.0-33.0 [facility] Comment on above: Performed By: #### L [id number] #### [facility] ([facility] [address] [place] [address] MCV (RBC) [Entitic vol] 92.9 fL Normal 82.0-98.0 [facility] Comment on above: Performed By: #### L [id number] #### [facility] ([facility] [address] [place] [address] PLATELETS (10*3/UL) IN BLOOD AUTOMATED COUNT 178 10*3/uL Normal 150-400 [facility] Comment on above: Performed By: #### L [id number] #### [facility] ([facility] [address] [place] [address] RBC (Bld) [#/Vol] 4.68 10*6/uL Normal 3.80-5.00 [facility] Comment on above: Performed By: #### L [id number] #### [facility] [address] [place] [address] WBC (Bld) [#/Vol] 7.40 10*3/uL Normal 4.00-10.60 [facility] Comment on above: Performed By: #### L [id number] #### [facility] ([facility] [address] [place] [address] MAGNESIUMon 08-09-2023 Magnesium [Mass/Vol] 1.7 mg/dL Low 1.9-2.7 [facility] Comment on above: Performed By: #### L [id number] #### [facility] ([facility] [address] [place] [address] NURSNOTEon 08-09-2023 NURSNOTE Discharge paperwork reviewed with pt; copy of paperwork given to pt. Reviewed new medications with pt. Pt expresses understanding of instructions. Pt currently waiting on family for ride home. Normal [facility] PHOSPHORUSon 08-09-2023 Magnesium [Mass/Vol] 4.3 mg/dL Normal 2.5-5.0 [facility] Comment on above: Performed By: #### L [id number] #### [facility] ([facility] [address] [place] [address] POCT GLUCOSE METER UNSOLICIT ED RESULTSon 08-09-2023 Glucose [Mass/Vol] 151 mg/dL High 70-105 [facility] Comment on above: Order Comment: Waive d Testing in the ED is performed under the ED CLIA certificate #[id number]. Result Comment: [email or web address] Performed By: #### L [id number] #### [facility] ([facility] [address] [place] [address] Glucose [Mass/Vol] 124 mg/dL High 70-105 [facility] Comment on above: Order Comment: Waive d Testing in the ED is performed under the ED CLIA certificate #[id number]. Result Comment: [email or web address] Performed By: #### L [id number] #### [facility] ([facility] [address] [place] [address] 30on 08-08-2023 30 The patient is Moder [...] Consider OT/PT consult to assist with strengthening/mobility [place] fall precautions as indicated by assessment Educate [...] symptoms for stability, deterioration, or improvement Normal [facility] 30 The patient is Moder ately [...] functionality and self care Outcome: Progressing Normal [facility] BASIC METABOLIC PANELon 11-2 Anion gap [Moles/Vol] 7 mmol/L Normal 7-20 [facility] Comment on above: Performed By: #### L [id number] #### [facility] [address] [place] [address] Calcium [Mass/Vol] 8.5 mg/dL Low 8.6-10.3 [facility] Comment on above: Performed By: #### L [id number] #### [facility] ([facility] [address] [place] [address] Chloride [Moles/Vol] 102 mmol/L Normal 98-107 [facility] Comment on above: Performed By: #### L [id number] #### [facility] ([facility] [address] [place] [address] CO2 [Moles/Vol] 30 mmol/L Normal 21-31 [facility] Comment on above: Performed By: #### L [id number] #### [facility] ([facility] [address] [place] [address] Creatinine [Mass/Vol] 0.60 mg/dL Normal 0.60-1.20 [facility] Comment on above: Performed By: #### L [id number] #### [facility] ([facility] [address] [place] [address] GLOMERULAR FILTRATION RATE ML/MIN/1.73 SQ M.PREDICTED 111.3 mL/min/1.73m*2 Normal >60.0 [facility] Comment on above: Result Comment: The [facility]???s estimated glomerular filtration rate (eGFR) will [...] group of individuals. Performed By: #### L [id number] #### [facility] ([facility] [address] [place] [address] Glucose [Mass/Vol] 145 mg/dL High 70-100 [facility] Comment on above: Performed By: #### L [id number] #### [facility] ([facility] [address] [place] [address] Potassium [Moles/Vol] 3.9 mmol/L Normal 3.5-5.1 [facility] Comment on above: Performed By: #### L [id number] #### [facility] ([facility] [address] [place] [address] Sodium [Moles/Vol] 135 mmol/L Low 136-145 [facility] Comment on above: Performed By: #### L [id number] #### [facility] ([facility] [address] [place] [address] Urea nitrogen [Mass/Vol] 22 mg/dL Normal 7-25 [facility] Comment on above: Performed By: #### L [id number] #### [facility] ([facility] [address] [place] [address] UREA NITROGEN/CREATININE (MASS RATIO) IN SER/PLAS 36.7 Normal [facility] Comment on above: Performed By: #### L [id number] #### [facility] ([facility] [address] [place] [address] CBCon 08-08-2023 Erythrocyte distribution width (RBC) [Ratio] 13.0 % Normal 11.5-15.0 [facility] Comment on above: Performed By: #### L [id number] #### [facility] ([facility] [address] [place] [address] ERYTHROCYTE MEAN CORPUSCULAR HEMOGLOBIN CONCENTRATION (G/DL) BY AUTOMATED 31.8 g/dL Low 32.0-35.0 [facility] Comment on above: Performed By: #### L [id number] #### [facility] ([facility] [address] [place] [address] Hematocrit (Bld) [Volume fraction] 47.5 % Normal 36.0-48.0 [facility] Comment on above: Performed By: #### L [id number] #### [facility] ([facility] [address] [place] [address] Hemoglobin (Bld) [Mass/Vol] 15.1 g/dL High 12.0-15.0 [facility] Comment on above: Performed By: #### L [id number] #### [facility] ([facility] [address] [place] [address] MCH (RBC) [Entitic mass] 29.7 pg Normal 27.0-33.0 [facility] Comment on above: Performed By: #### L [id number] #### [facility] ([facility] [address] [place] [address] MCV (RBC) [Entitic vol] 93.3 fL Normal 82.0-98.0 [facility] Comment on above: Performed By: #### L [id number] #### [facility] ([facility] [address] [place] [address] PLATELETS (10*3/UL) IN BLOOD AUTOMATED COUNT 190 10*3/uL Normal 150-400 [facility] Comment on above: Performed By: #### L [id number] #### [facility] ([facility] [address] [place] [address] RBC (Bld) [#/Vol] 5.09 10*6/uL High 3.80-5.00 [facility] Comment on above: Performed By: #### L [id number] #### [facility] ([facility] [address] [place] [address] WBC (Bld) [#/Vol] 8.55 10*3/uL Normal 4.00-10.60 [facility] Comment on above: Performed By: #### L [id number] #### [facility] ([facility] [address] [place] [address] CTA CHEST W AND/OR WO IV CON [...] reasonably achievable. Electronically signed: Karlos Gallardo. Normal [facility] MAGNESIUMon 08-08-2023 Magnesium [Mass/Vol] 1.8 mg/dL Low 1.9-2.7 [facility] Comment on above: Performed By: #### L [id number] #### [facility] ([facility]) [address] [place] [address] NURSNOTEon 08-08-2023 NURSNOTE Patient Name: Daniel Lynn [...] Pamela Babcock RN Rapid Response Team Nurse [phone] 08/08/2023 3:26 PM Normal [facility] PHOSPHORUSon 08-08-2023 Magnesium [Mass/Vol] 3.4 mg/dL Normal 2.5-5.0 [facility] Comment on above: Performed By: #### L [id number] ####[facility] ([facility] [place] [address] POCT GLUCOSE METER UNSOLICIT ED RESULTSon 08-08-2023 Glucose [Mass/Vol] 331 mg/dL High 70-105 [facility] Comment on above: Order Comment: Waive d Testing in the ED is performed under the ED CLIA certificate #[id number]. Result Comment: [email or web address] Performed By: #### L [id number] #### [facility] ([facility] [address] [place] [address] Glucose [Mass/Vol] 249 mg/dL High 70-105 [facility] Comment on above: Order Comment: Waive d Testing in the ED is performed under the ED CLIA certificate #[id number]. Result Comment: [email or web address] Performed By: #### L [id number] #### [facility] ([facility] [address] [place] [address] Glucose [Mass/Vol] 277 mg/dL High 70-105 [facility] Comment on above: Order Comment: Waive d Testing in the ED is performed under the ED CLIA certificate #[id number]. Result Comment: [email or web address] Performed By: #### L [id number] #### [facility] ([facility]) [address] [place] [address] Glucose [Mass/Vol] 198 mg/dL High 70-105 [facility] Comment on above: Order Comment: Waive d Testing in the ED is performed under the ED CLIA certificate #[id number]. Result Comment: [email or web address] Performed By: #### L [id number] #### [facility] ([facility] [address] [place] [address] Glucose [Mass/Vol] 111 mg/dL High 70-105 [facility] Comment on above: Order Comment: Waive d Testing in the ED is performed under the ED CLIA certificate #[id number]. Result Comment: [email or web address] Performed By: #### L [id number] #### [facility] ([facility]) [address] [place] [address] 30on 08-07-2023 30 Problem: Discharge Planning Goal: [...] membranes remain intact Outcome: Progressing Flowsheets (Taken 08/07/2023 0800) Oral mucous membranes remain intact: Assess oral mucosa and hygiene practices Implement preventative oral hygiene regimen Normal [facility] BASIC METABOLIC PANELon 11-2 Anion gap [Moles/Vol] 9 mmol/L Normal 7-20 [facility] Comment on above: Performed By: #### L [id number] #### [facility] ([facility]) [address] [place] [address] Calcium [Mass/Vol] 8.5 mg/dL Low 8.6-10.3 [facility] Comment on above: Performed By: #### L [id number] #### [facility] ([facility]) [address] [place] [address] Chloride [Moles/Vol] 98 mmol/L Normal 98-107 [facility] Comment on above: Performed By: #### L [id number] #### [facility] ([facility]) [address] [place] [address] CO2 [Moles/Vol] 31 mmol/L Normal 21-31 [facility] Comment on above: Performed By: #### L [id number] #### [facility] ([facility]) [address] [place] [address] Creatinine [Mass/Vol] 0.59 mg/dL Low 0.60-1.20 [facility] Comment on above: Performed By: #### L [id number] #### [facility] ([facility]) [address] [place] [address] GLOMERULAR FILTRATION RATE ML/MIN/1.73 SQ M.PREDICTED 111.8 mL/min/1.73m*2 Normal >60.0 [facility] Comment on above: Result Comment: The [facility]???s estimated glomerular filtration rate (eGFR) will [...] group of individuals. Performed By: #### L [id number] #### [facility] ([facility] [address] [place] [address] Glucose [Mass/Vol] 210 mg/dL High 70-100 [facility] Comment on above: Performed By: #### L [id number] #### [facility] ([facility] [address] [place] [address] Potassium [Moles/Vol] 3.8 mmol/L Normal 3.5-5.1 [facility] Comment on above: Performed By: #### L [id number] #### [facility] ([facility] [address] [place] [address] Sodium [Moles/Vol] 134 mmol/L Low 136-145 [facility] Comment on above: Performed By: #### L [id number] #### [facility] ([facility] [address] [place] [address] Urea nitrogen [Mass/Vol] 25 mg/dL Normal 7-25 [facility] Comment on above: Performed By: #### L [id number] #### [facility] ([facility] [address] [place] [address] UREA NITROGEN/CREATININE (MASS RATIO) IN SER/PLAS 42.4 Normal [facility] Comment on above: Performed By: #### L [id number] #### [facility] ([facility] [address] [place] [address] CBCon 08-07-2023 Erythrocyte distribution width (RBC) [Ratio] 13.0 % Normal 11.5-15.0 [facility] Comment on above: Performed By: #### L [id number] #### [facility] ([facility] [address] [place] [address] ERYTHROCYTE MEAN CORPUSCULAR HEMOGLOBIN CONCENTRATION (G/DL) BY AUTOMATED 32.6 g/dL Normal 32.0-35.0 [facility] Comment on above: Performed By: #### L [id number] #### [facility] [address] [place] [address] Hematocrit (Bld) [Volume fraction] 47.3 % Normal 36.0-48.0 [facility] Comment on above: Performed By: #### L [id number] #### [facility]) [address] [place] [address] Hemoglobin (Bld) [Mass/Vol] 15.4 g/dL High 12.0-15.0 [facility] Comment on above: Performed By: #### L [id number] #### [facility] [address] [place] [address] MCH (RBC) [Entitic mass] 30.1 pg Normal 27.0-33.0 [facility] Comment on above: Performed By: #### L [id number] #### [facility]) [address] [place] [address] MCV (RBC) [Entitic vol] 92.6 fL Normal 82.0-98.0 [facility] Comment on above: Performed By: #### L [id number] #### [facility] ([facility]) [address] [place] [address] PLATELETS (10*3/UL) IN BLOOD AUTOMATED COUNT 194 10*3/uL Normal 150-400 [facility] Comment on above: Performed By: #### L [id number] #### [facility] ([facility]) [address] [place] [address] RBC (Bld) [#/Vol] 5.11 10*6/uL High 3.80-5.00 [facility] Comment on above: Performed By: #### L [id number] #### [facility] ([facility]) [address] [place] [address] WBC (Bld) [#/Vol] 9.05 10*3/uL Normal 4.00-10.60 [facility] Comment on above: Performed By: #### L [id number] #### [facility] ([facility] [address] [place] [address] MAGNESIUMon 08-07-2023 Magnesium [Mass/Vol] 1.7 mg/dL Low 1.9-2.7 [facility] Comment on above: Performed By: #### L [id number] #### [facility] ([facility] [address] [place] [address] NURSNOTEon 08-07-2023 NURSNOTE Report given to NEDRA dhillon in CVU. All questions answered at this time- patient belongings given from marketing underwriter to RN. Normal [facility] PHOSPHORUSon 08-07-2023 Magnesium [Mass/Vol] 3.5 mg/dL Normal 2.5-5.0 [facility] Comment on above: Performed By: #### L [id number] #### [facility] ([facility] [address] [place] [address] POCT GLUCOSE METER UNSOLICIT ED RESULTSon 08-07-2023 Glucose [Mass/Vol] 233 mg/dL High 70-105 [facility] Comment on above: Order Comment: Waive d Testing in the ED is performed under the ED CLIA certificate #[id number]. Result Comment: [email or web address] Performed By: #### L [id number] #### [facility] ([facility] [address] [place] [address] Glucose [Mass/Vol] 156 mg/dL High 70-105 [facility] Comment on above: Order Comment: Waive d Testing in the ED is performed under the ED CLIA certificate #[id number]. Result Comment: [email or web address] Performed By: #### L [id number] #### [facility] ([facility] [address] [place] [address] Glucose [Mass/Vol] 305 mg/dL High 70-105 [facility] Comment on above: Order Comment: Waive d Testing in the ED is performed under the ED CLIA certificate #[id number]. Result Comment: [email or web address] Performed By: #### L [id number] #### [facility] ([facility]) [address] [place] [address] 30on 08-06-2023 30 Problem: Pain - Adul t Goal: Verbalizes/displays adequate comfort level or baseline comfort level Outcome: Progressing Problem: Safety - Adult Goal: Free from fall injury Outcome: Progressing Flowsheets (Taken 08/06/2023 08) Free from fall injury: Assess patient frequently [...] dysrhythmias or at baseline Outcome: Progressing Normal [facility] BASIC METABOLIC PANELon 11-2 -2022 Anion gap [Moles/Vol] 9 mmol/L Normal 7-20 [facility] Comment on above: Performed By: #### L [id number] #### [facility] (BEAKER) [address] [place] [address] Calcium [Mass/Vol] 8.4 mg/dL Low 8.6-10.3 [facility] Comment on above: Performed By: #### L [id number] #### [facility] (BEAKER) [address] [place] [address] Chloride [Moles/Vol] 100 mmol/L Normal 98-107 [facility] Comment on above: Performed By: #### L [id number] #### [facility] (BESupersonic) [address] [facility] [place] [address] CO2 [Moles/Vol] 30 mmol/L Normal 21-31 [facility] Comment on above: Performed By: #### L [id number] #### [facility] ([facility] [address] [place] [address] Creatinine [Mass/Vol] 0.61 mg/dL Normal 0.60-1.20 [facility] Comment on above: Performed By: #### L [id number] #### [facility] ([facility] [address] [place] [address] GLOMERULAR FILTRATION RATE ML/MIN/1.73 SQ M.PREDICTED 110.9 mL/min/1.73m*2 Normal >60.0 [facility] Comment on above: Result Comment: The [facility]???s estimated glomerular filtration rate (eGFR) will [...] group of individuals. Performed By: #### L [id number] #### [facility] ([facility] [address] [place] [address] Glucose [Mass/Vol] 180 mg/dL High 70-100 [facility] Comment on above: Performed By: #### L [id number] #### [facility] ([facility] [address] [place] [address] Potassium [Moles/Vol] 4.1 mmol/L Normal 3.5-5.1 [facility] Comment on above: Performed By: #### L [id number] #### [facility] ([facility] [address] [place] [address] Sodium [Moles/Vol] 135 mmol/L Low 136-145 [facility] Comment on above: Performed By: #### L [id number] #### [facility] (BEAKER) [address] [place] [address] Urea nitrogen [Mass/Vol] 20 mg/dL Normal 7-25 [facility] Comment on above: Performed By: #### L [id number] #### [facility] ([facility] [address] [place] [address] UREA NITROGEN/CREATININE (MASS RATIO) IN SER/PLAS 32.8 Normal [facility] Comment on above: Performed By: #### L [id number] #### [facility] ([facility] [address] [place] [address] CBCon 08-06-2023 Erythrocyte distribution width (RBC) [Ratio] 12.9 % Normal 11.5-15.0 [facility] Comment on above: Performed By: #### L [id number] #### [facility] ([facility] [address] [place] [address] ERYTHROCYTE MEAN CORPUSCULAR HEMOGLOBIN CONCENTRATION (G/DL) BY AUTOMATED 32.4 g/dL Normal 32.0-35.0 [facility] Comment on above: Performed By: #### L [id number] #### [facility] ([facility] [address] [place] [address] Hematocrit (Bld) [Volume fraction] 48.5 % High 36.0-48.0 [facility] Comment on above: Performed By: #### L [id number] #### [facility] ([facility] [address] [place] [address] Hemoglobin (Bld) [Mass/Vol] 15.7 g/dL High 12.0-15.0 [facility] Comment on above: Performed By: #### L [id number] #### [facility] (BEAKER) [address] [place] [address] MCH (RBC) [Entitic mass] 30.3 pg Normal 27.0-33.0 [facility] Comment on above: Performed By: #### L [id number] #### [facility] ([facility] [address] [place] [address] MCV (RBC) [Entitic vol] 93.4 fL Normal 82.0-98.0 [facility] Comment on above: Performed By: #### L [id number] #### [facility] ([facility] [address] [facility] [place] [address] PLATELETS (10*3/UL) IN BLOOD AUTOMATED COUNT 159 10*3/uL Normal 150-400 [facility] Comment on above: Performed By: #### L [id number] #### [facility] ([facility] [address] [place] [address] RBC (Bld) [#/Vol] 5.19 10*6/uL High 3.80-5.00 [facility] Comment on above: Performed By: #### L [id number] #### [facility] ([facility] [address] [place] [address] WBC (Bld) [#/Vol] 8.36 10*3/uL Normal 4.00-10.60 [facility] Comment on above: Performed By: #### L [id number] #### [facility] ([facility] [address] [place] [address] MAGNESIUMon 08-06-2023 Magnesium [Mass/Vol] 1.8 mg/dL Low 1.9-2.7 [facility] Comment on above: Performed By: #### L [id number] #### [facility] ([facility] [address] [place] [address] MRI CARDIAC MORPHOLOGY AND F UNCTION W [...] . . Electronically signed: Cade Farley. Normal [facility] PHOSPHORUSon 08-06-2023 Magnesium [Mass/Vol] 3.2 mg/dL Normal 2.5-5.0 [facility] Comment on above: Performed By: #### L [id number] #### [facility] (BEAKER) [address] [place] [address] POCT GLUCOSE METER UNSOLICIT ED RESULTSon 08-06-2023 Glucose [Mass/Vol] 240 mg/dL High 70-105 [facility] Comment on above: Order Comment: Waive d Testing in the ED is performed under the ED CLIA certificate #[id number]. Result Comment: [email or web address] Performed By: #### L [id number] ####[facility] (BEAKER)[address] [place] [address] Glucose [Mass/Vol] 240 mg/dL High 70-105 [facility] Comment on above: Order Comment: Waive d Testing in the ED is performed under the ED CLIA certificate #[id number]. Result Comment: [email or web address] Performed By: #### L [id number] #### [facility] (BEAKER) [address] [place] [address] Glucose [Mass/Vol] 252 mg/dL High 70-105 [facility] Comment on above: Order Comment: Waive d Testing in the ED is performed under the ED CLIA certificate #[id number]. Result Comment: [email or web address] Performed By: #### L [id number] #### [facility] ([facility] [address] [place] [address] 30on 08-05-2023 30 The patient is Moder [...] Goal: Maintains hematologic stability Outcome: Progressing Normal [facility] 30 Problem: Pain - Adul t [...] goals for the shift include VSS Normal [facility] BASIC METABOLIC PANELon 11- Anion gap [Moles/Vol] 7 mmol/L Normal 7-20 [facility] Comment on above: Performed By: #### L [id number] #### [facility] ([facility] [address] [facility] [address] Calcium [Mass/Vol] 8.4 mg/dL Low 8.6-10.3 [facility] Comment on above: Performed By: #### L [id number] #### [facility] ([facility] [address] [place] [address] Chloride [Moles/Vol] 99 mmol/L Normal 98-107 [facility] Comment on above: Performed By: #### L [id number] #### [facility] ([facility] [address] [place] [address] CO2 [Moles/Vol] 33 mmol/L High 21-31 [facility] Comment on above: Performed By: #### L [id number] #### [facility] ([facility] [address] [place] [address] Creatinine [Mass/Vol] 0.75 mg/dL Normal 0.60-1.20 [facility] Comment on above: Performed By: #### L [id number] #### [facility] ([facility] [address] [facility] [place] [address] GLOMERULAR FILTRATION RATE ML/MIN/1.73 SQ M.PREDICTED 98.8 mL/min/1.73m*2 Normal >60.0 [facility] Comment on above: Result Comment: The [facility]???s estimated glomerular filtration rate (eGFR) will [...] group of individuals. Performed By: #### L [id number] #### [facility] ([facility] [address] [place] [address] Glucose [Mass/Vol] 206 mg/dL High 70-100 [facility] Comment on above: Performed By: #### L [id number] #### [facility] ([facility] [address] [facility] [place] [address] Potassium [Moles/Vol] 3.7 mmol/L Normal 3.5-5.1 [facility] Comment on above: Performed By: #### L [id number] #### [facility] ([facility] [address] [place] [address] Sodium [Moles/Vol] 135 mmol/L Low 136-145 [facility] Comment on above: Performed By: #### L [id number] #### [facility] ([facility] [address] [place] [address] Urea nitrogen [Mass/Vol] 26 mg/dL High 7-25 [facility] Comment on above: Performed By: #### L [id number] #### [facility] ([facility] [address] [place] [address] UREA NITROGEN/CREATININE (MASS RATIO) IN SER/PLAS 34.7 Normal [facility] Comment on above: Performed By: #### L [id number] #### [facility] ([facility] [address] [place] [address] CBCon 08-05-2023 Erythrocyte distribution width (RBC) [Ratio] 13.0 % Normal 11.5-15.0 [facility] Comment on above: Performed By: #### L [id number] ####[facility] ([facility] [place] [address] ERYTHROCYTE MEAN CORPUSCULAR HEMOGLOBIN CONCENTRATION (G/DL) BY AUTOMATED 32.7 g/dL Normal 32.0-35.0 [facility] Comment on above: Performed By: #### L [id number] ####[facility] ([facility])[address] [place] [address] Hematocrit (Bld) [Volume fraction] 49.5 % High 36.0-48.0 [facility] Comment on above: Performed By: #### L [id number] ####[facility] ([facility] [place] [address] Hemoglobin (Bld) [Mass/Vol] 16.2 g/dL High 12.0-15.0 [facility] Comment on above: Performed By: #### L [id number] ####[facility] ([facility])[address] [place] [address] MCH (RBC) [Entitic mass] 30.6 pg Normal 27.0-33.0 [facility] Comment on above: Performed By: #### L [id number] ####[facility] (BEAKER)[address] [place] [address] MCV (RBC) [Entitic vol] 93.4 fL Normal 82.0-98.0 [facility] Comment on above: Performed By: #### L [id number] ####[facility] ([facility])[address] [place] [address] PLATELETS (10*3/UL) IN BLOOD AUTOMATED COUNT 190 10*3/uL Normal 150-400 [facility] Comment on above: Performed By: #### L [id number] ####[facility] (BEAKER)[address] [place] [address] RBC (Bld) [#/Vol] 5.30 10*6/uL High 3.80-5.00 [facility] Comment on above: Performed By: #### L [id number] ####[facility] ([facility] [place] [address] WBC (Bld) [#/Vol] 9.57 10*3/uL Normal 4.00-10.60 [facility] Comment on above: Performed By: #### L [id number] ####[facility] ([facility] [place] [address] MAGNESIUMon 08-05-2023 Magnesium [Mass/Vol] 1.9 mg/dL Normal 1.9-2.7 [facility] Comment on above: Performed By: #### L [id number] ####[facility] ([facility] [place] [address] PHOSPHORUSon 08-05-2023 Magnesium [Mass/Vol] 3.1 mg/dL Normal 2.5-5.0 [facility] Comment on above: Performed By: #### L [id number] ####[facility] ([facility] [place] [address] POCT GLUCOSE METER UNSOLICIT ED RESULTSon 08-05-2023 Glucose [Mass/Vol] 272 mg/dL High 70-105 [facility] Comment on above: Order Comment: Waive d Testing in the ED is performed under the ED CLIA certificate #[id number]. Result Comment: nfre cassie Performed By: #### L [id number] #### [facility] ([facility] [address] [place] [address] Glucose [Mass/Vol] 203 mg/dL High 70-105 [facility] Comment on above: Order Comment: Waive d Testing in the ED is performed under the ED CLIA certificate #[id number]. Result Comment: ana yanes Performed By: #### L [id number] ####[facility] ([facility] [place] [address] Glucose [Mass/Vol] 227 mg/dL High 70-105 [facility] Comment on above: Order Comment: Waive d Testing in the ED is performed under the ED CLIA certificate #[id number]. Result Comment: ana ry Performed By: #### L [id number] #### [facility] (BEAKER) [address] [place] [address] Glucose [Mass/Vol] 200 mg/dL High 70-105 [facility] Comment on above: Order Comment: Waive d Testing in the ED is performed under the ED CLIA certificate #[id number]. Result Comment: ana ry Performed By: #### L [id number] #### [facility] (BEAKER) [address] [place] [address] 30on 08-04-2023 30 The patient is Moder [...] Goal: Maintains hematologic stability Outcome: Progressing Normal [facility] 30 The patient is Moder ately [...] Goal: Maintains hematologic stability Outcome: Progressing Normal [facility] BASIC METABOLIC PANELon 11-1 8-2023 Anion gap [Moles/Vol] 7 mmol/L Normal 7-20 [facility] Comment on above: Performed By: #### L [id number] ####[facility] (BEAKER)[address] [place] [address] Calcium [Mass/Vol] 8.4 mg/dL Low 8.6-10.3 [facility] Comment on above: Performed By: #### L [id number] ####[facility] (BEAKER)[address] [place] [address] Chloride [Moles/Vol] 99 mmol/L Normal 98-107 [facility] Comment on above: Performed By: #### L [id number] ####[facility] (BEAKER)[address] [place] [address] CO2 [Moles/Vol] 33 mmol/L High 21-31 [facility] Comment on above: Performed By: #### L [id number] ####[facility] (BEAKER)[address] [place] [address] Creatinine [Mass/Vol] 0.82 mg/dL Normal 0.60-1.20 [facility] Comment on above: Performed By: #### L [id number] ####[facility] ([facility] [place] [address] GLOMERULAR FILTRATION RATE ML/MIN/1.73 SQ M.PREDICTED 88.7 mL/min/1.73m*2 Normal >60.0 [facility] Comment on above: Result Comment: The [facility]???s estimated glomerular filtration rate (eGFR) will [...] of individuals. Performed By: #### L [id number] ####[facility] (BEAKER)[address] [place] [address] Glucose [Mass/Vol] 207 mg/dL High 70-100 [facility] Comment on above: Performed By: #### L [id number] ####[facility] (BEAKER)[address] [place] [address] Potassium [Moles/Vol] 3.8 mmol/L Normal 3.5-5.1 [facility] Comment on above: Performed By: #### L [id number] ####[facility] ([facility])[address] [place] [address] Sodium [Moles/Vol] 135 mmol/L Low 136-145 [facility] Comment on above: Performed By: #### L [id number] ####[facility] (BEAKER)[address] [place] [address] Urea nitrogen [Mass/Vol] 28 mg/dL High 7-25 [facility] Comment on above: Performed By: #### L [id number] ####[facility] (BEAKER)[address] [place] [address] UREA NITROGEN/CREATININE (MASS RATIO) IN SER/PLAS 34.1 Normal [facility] Comment on above: Performed By: #### L [id number] ####[facility] (BEAKER)[address] [place] [address] CBCon 08-04-2023 Erythrocyte distribution width (RBC) [Ratio] 13.0 % Normal 11.5-15.0 [facility] Comment on above: Performed By: #### L [id number] ####[facility] (BEAKER)[address] [place] [address] ERYTHROCYTE MEAN CORPUSCULAR HEMOGLOBIN CONCENTRATION (G/DL) BY AUTOMATED 32.5 g/dL Normal 32.0-35.0 [facility] Comment on above: Performed By: #### L [id number] ####[facility] (BEAKER)[address] [place] [address] Hematocrit (Bld) [Volume fraction] 49.9 % High 36.0-48.0 [facility] Comment on above: Performed By: #### L [id number] ####[facility] ([facility] [place] [address] Hemoglobin (Bld) [Mass/Vol] 16.2 g/dL High 12.0-15.0 [facility] Comment on above: Performed By: #### L [id number] ####[facility] ([facility] [place] [address] MCH (RBC) [Entitic mass] 30.5 pg Normal 27.0-33.0 [facility] Comment on above: Performed By: #### L [id number] ####[facility] ([facility] [place] [address] MCV (RBC) [Entitic vol] 93.8 fL Normal 82.0-98.0 [facility] Comment on above: Performed By: #### L [id number] ####[facility] ([facility] [place] [address] PLATELETS (10*3/UL) IN BLOOD AUTOMATED COUNT 197 10*3/uL Normal 150-400 [facility] Comment on above: Performed By: #### L [id number] ####[facility] ([facility])[address] [place] [address] RBC (Bld) [#/Vol] 5.32 10*6/uL High 3.80-5.00 [facility] Comment on above: Performed By: #### L [id number] ####[facility] ([facility])[address] [place] [address] WBC (Bld) [#/Vol] 10.19 10*3/uL Normal 4.00-10.60 [facility] Comment on above: Performed By: #### L [id number] ####[facility] (BEAKER)[address] [place] [address] CONSULTon 08-04-2023 CONSULT Inpatient consult to Cardiothoracic Surgery Consult performed by: Gian Cradona NP Consult ordered by: Lissette Delgado MD Reason for consult: ASD History Of Present Illness Daniel Lynn is a 47 y.o. female with PMH of Asthma and Obesity who was initially evaluated in [place] on 07/25 with with 4 days of [...] the patient and they recommended transfer to [facility] for right heart catherization. She arrived to [facility] 08/01 where she was admitted to the [...] of Asthma, COPD (chronic obstructive pulmonary disease) ([facility]), Diabetes mellitus ([facility]), Hypertension, MTHFR gene mutation, and Obesity. Surgical [...] Mental Status (more content not included)... Normal [facility] MAGNESIUMon 08-04-2023 Magnesium [Mass/Vol] 1.9 mg/dL Normal 1.9-2.7 [facility] Comment on above: Performed By: #### L [id number] #### [facility] ([facility] [address] [place] [address] PHOSPHORUSon 08-04-2023 Magnesium [Mass/Vol] 2.8 mg/dL Normal 2.5-5.0 [facility] Comment on above: Performed By: #### L [id number] #### [facility] ([facility] [address] [place] [address] POCT GLUCOSE METER UNSOLICIT ED RESULTSon 08-04-2023 Glucose [Mass/Vol] 310 mg/dL High 70-105 [facility] Comment on above: Order Comment: Waive d Testing in the ED is performed under the ED CLIA certificate #[id number]. Result Comment: nfre [email or web address] Performed By: #### L [id number] #### [facility] ([facility] [address] [place] [address] Glucose [Mass/Vol] 248 mg/dL High 70-105 [facility] Comment on above: Order Comment: Waive d Testing in the ED is performed under the ED CLIA certificate #[id number]. Result Comment: [email or web address] Performed By: #### L [id number] #### [facility] ([facility] [address] [place] [address] Glucose [Mass/Vol] 212 mg/dL High 70-105 [facility] Comment on above: Order Comment: Waive d Testing in the ED is performed under the ED CLIA certificate #[id number]. Result Comment: [email or web address] Performed By: #### L [id number] #### [facility] ([facility] [address] [place] [address] Glucose [Mass/Vol] 185 mg/dL High 70-105 [facility] Comment on above: Order Comment: Waive d Testing in the ED is performed under the ED CLIA certificate #[id number]. Result Comment: [email or web address] Performed By: #### L [id number] #### [facility] (BEAKER) [address] [place] [address] BASIC METABOLIC PANELon 11-1 Anion gap [Moles/Vol] 10 mmol/L Normal 7-20 [facility] Comment on above: Performed By: #### L [id number] #### [facility] (BEAKER) [address] [place] [address] Calcium [Mass/Vol] 8.7 mg/dL Normal 8.6-10.3 [facility] Comment on above: Performed By: #### L [id number] #### [facility] (BEAKER) [address] [place] [address] Chloride [Moles/Vol] 95 mmol/L Low 98-107 [facility] Comment on above: Performed By: #### L [id number] #### [facility] (BEAKER) [address] [place] [address] CO2 [Moles/Vol] 32 mmol/L High 21-31 [facility] Comment on above: Performed By: #### L [id number] #### [facility] (BEAKER) [address] [place] [address] Creatinine [Mass/Vol] 0.67 mg/dL Normal 0.60-1.20 [facility] Comment on above: Performed By: #### L [id number] #### [facility] (BEAKER) [address] [place] [address] GLOMERULAR FILTRATION RATE ML/MIN/1.73 SQ M.PREDICTED 108.4 mL/min/1.73m*2 Normal >60.0 [facility] Comment on above: Result Comment: The [facility]???s estimated glomerular filtration rate (eGFR) will [...] group of individuals. Performed By: #### L [id number] #### [facility] ([facility] [address] [place] [address] Glucose [Mass/Vol] 277 mg/dL High 70-100 [facility] Comment on above: Performed By: #### L [id number] #### [facility] ([facility] [address] [place] [address] Potassium [Moles/Vol] 3.6 mmol/L Normal 3.5-5.1 [facility] Comment on above: Performed By: #### L [id number] #### [facility] ([facility] [address] [place] [address] Sodium [Moles/Vol] 133 mmol/L Low 136-145 [facility] Comment on above: Performed By: #### L [id number] #### [facility] ([facility] [address] [facility] [place] [address] Urea nitrogen [Mass/Vol] 32 mg/dL High 7-25 [facility] Comment on above: Performed By: #### L [id number] #### [facility] ([facility] [address] [place] [address] UREA NITROGEN/CREATININE (MASS RATIO) IN SER/PLAS 47.8 Normal [facility] Comment on above: Performed By: #### L [id number] #### [facility] ([facility] [address] [place] [address] CBCon 08-03-2023 Erythrocyte distribution width (RBC) [Ratio] 13.0 % Normal 11.5-15.0 [facility] Comment on above: Performed By: #### L [id number] #### [facility] ([facility]) [address] [place] [address] ERYTHROCYTE MEAN CORPUSCULAR HEMOGLOBIN CONCENTRATION (G/DL) BY AUTOMATED 32.7 g/dL Normal 32.0-35.0 [facility] Comment on above: Performed By: #### L [id number] #### [facility] [address] [place] [address] Hematocrit (Bld) [Volume fraction] 54.8 % High 36.0-48.0 [facility] Comment on above: Performed By: #### L [id number] #### [facility] [address] [place] [address] Hemoglobin (Bld) [Mass/Vol] 17.9 g/dL High 12.0-15.0 [facility] Comment on above: Performed By: #### L [id number] #### [facility] ([facility] [address] [place] [address] MCH (RBC) [Entitic mass] 30.5 pg Normal 27.0-33.0 [facility] Comment on above: Performed By: #### L [id number] #### [facility] ([facility] [address] [place] [address] MCV (RBC) [Entitic vol] 93.5 fL Normal 82.0-98.0 [facility] Comment on above: Performed By: #### L [id number] #### [facility] [address] [place] [address] PLATELETS (10*3/UL) IN BLOOD AUTOMATED COUNT 208 10*3/uL Normal 150-400 [facility] Comment on above: Performed By: #### L [id number] #### [facility] [address] [place] [address] RBC (Bld) [#/Vol] 5.86 10*6/uL High 3.80-5.00 [facility] Comment on above: Performed By: #### L [id number] #### [facility] ([facility] [address] [place] [address] WBC (Bld) [#/Vol] 12.73 10*3/uL High 4.00-10.60 [facility] Comment on above: Performed By: #### L [id number] #### [facility] ([facility] [address] [place] [address] MAGNESIUMon 08-03-2023 Magnesium [Mass/Vol] 1.9 mg/dL Normal 1.9-2.7 [facility] Comment on above: Performed By: #### L [id number] #### [facility] ([facility] [address] [place] [address] PHOSPHORUSon 08-03-2023 Magnesium [Mass/Vol] 3.3 mg/dL Normal 2.5-5.0 [facility] Comment on above: Performed By: #### L [id number] #### [facility] ([facility] [address] [place] [address] POCT GLUCOSE METER UNSOLICIT ED RESULTSon 08-03-2023 Glucose [Mass/Vol] 286 mg/dL High 70-105 [facility] Comment on above: Order Comment: Waive d Testing in the ED is performed under the ED CLIA certificate #[id number]. Result Comment: nfre [email or web address] Performed By: #### L [id number] #### [facility] ([facility] [address] [place] [address] Glucose [Mass/Vol] 214 mg/dL High 70-105 [facility] Comment on above: Order Comment: Waive d Testing in the ED is performed under the ED CLIA certificate #[id number]. Result Comment: [email or web address] iga Performed By: #### L [id number] #### [facility] ([facility] [address] [place] [address] Glucose [Mass/Vol] 239 mg/dL High 70-105 [facility] Comment on above: Order Comment: Waive d Testing in the ED is performed under the ED CLIA certificate #[id number]. Result Comment: [email or web address] iga Performed By: #### L [id number] #### [facility] ([facility] [address] [place] [address] Glucose [Mass/Vol] 234 mg/dL High 70-105 [facility] Comment on above: Order Comment: Waive d Testing in the ED is performed under the ED CLIA certificate #[id number]. Result Comment: [email or web address] iga Performed By: #### L [id number] #### [facility] ([facility] [address] [place] [address] TSH3 REFLEX TO FT4on 023 THYROTROPIN (MIU/L) IN SER/PLAS BY DETECTION LIMIT <= 0.05 MIU/L 0.56 mIU/L Normal 0.34-5.60 [facility] Comment on above: Performed By: #### L [id number] #### [facility] ([facility] [address] [place] [address] ANAon 08-02-2023 PHANI TITER <1:40 Normal <=1:40 [facility] Comment on above: Result Comment: Test performed using SERGE IFA PHANI Hep-2 Test, a pre-standardized assay designed for the qualitative and semi-quantitative detection of antinuclear antibodies. Performed By: #### L [id number] #### [facility] ([facility] [address] [place] [address] ANTI-CENTROMERE ANTIBODYon 10-02-2022 ANTI-CENTROMERE ANTIBODY Negative Normal Negative [facility] Comment on above: Performed By: #### L [id number] ####[facility] ([facility] [place] [address] ANTI-DNASE B ANTIBODYon 07-18 DNASE B ANTIBODY <86 Normal <=259 [facility] Comment on above: Result Comment: REFE RENCE [...] of a recent Streptococcus infection. Performed By: [facility] [address] [place] [address] Vehicle Dynamics Engineer: Saturnino Rai MD, PhD CLIA Number: [id number] Performed By: #### L [id number] #### [facility] ([facility]) [address] [place] [address] ANTI-RITU 1 ANTIBODY, IGGon ANTI RITU-1 IGG 1 AU/mL Normal 0-40 [facility] Comment on above: Result Comment: INTE RPRETIVE INFORMATION: Ritu-1 Antibody, IgG 29 AU/mL or less.........Negative 30-40 AU/mL..............Equivocal 41 AU/mL or greater......Positive Presence of Ritu-1 (antihistidyl transfer RNA [t-RNA] synthetase) antibody is associated with polymyositis and may also be seen in patients with dermatomyositis. Ritu-1 antibody is associated with pulmonary involvement (interstitial lung disease), Raynaud phenomenon, arthritis, and speedometer mechanic's hands (implicated in antisynthetase syndrome). Performed By: [facility] [address] [place] [address] Vehicle Dynamics Engineer: Saturnino Rai MD, PhD CLIA Number: [id number] Performed By: #### L [id number] #### [facility] ([facility]) [address] [place] [address] ARTERIAL BLOOD GAS WITH IONI ZED CALCIUMon 08-02-2023 Base excess Calc (Bld) [Moles/Vol] 13.8 mmol/L High -2.0-3.0 [facility] Comment on above: Order Comment: V60 04/26 Performed By: #### L [id number] #### [facility] ([facility]) [address] [place] [address] CALCIUM IONIZED (MMOL/L) IN BLOOD 1.08 mmol/L Low 1.15-1.33 [facility] Comment on above: Order Comment: 04/26 Performed By: #### L [id number] #### [facility] ([facility]) [address] [place] [address] CO2 (Bld) [Partial pressure] 60 mm[Hg] Critically high 35-48 [facility] Comment on above: Order Comment: 04/26 Performed By: #### L [id number] #### [facility] ([facility]) [address] [place] [address] FIO2 90 % Normal [facility] Comment on above: Order Comment: 04/26 Performed By: #### L [id number] #### [facility] ([facility]) [address] [place] [address] HCO3 (Bld) [Moles/Vol] 40.8 mmol/L High 21.0-28.0 [facility] Comment on above: Order Comment: 04/26 Performed By: #### L [id number] #### [facility] ([facility]) [address] [place] [address] Oxygen (Bld) [Partial pressure] 89 mm[Hg] Normal 83-100 [facility] Comment on above: Order Comment: 04/26 Performed By: #### L [id number] #### [facility] ([facility]) [address] [place] [address] OXYGEN SATURATION (%) IN ARTERIAL BLOOD 97.8 % Normal 94.0-98.0 [facility] Comment on above: Order Comment: 04/26 Performed By: #### L [id number] #### [facility] ([facility]) [address] [place] [address] pH (Bld) 7.44 [pH] Normal 7.35-7.45 [facility] Comment on above: Order Comment: 04/26 Performed By: #### L [id number] #### [facility] ([facility]) [address] [place] [address] SOURCE OF OXYGEN Bi-PAP Normal [facility] Comment on above: Order Comment: V60 1 04/26 Performed By: #### L [id number] #### [facility] ([facility]) [address] [place] [address] B-TYPE NATRIURETIC PEPTIDEon 08-02-2023 Natriuretic peptide B (Bld) [Mass/Vol] 37 pg/mL Normal 0-100 [facility] Comment on above: Performed By: #### L [id number] #### [facility] ([facility]) [address] [place] [address] BASIC METABOLIC PANELon 07-18 Anion gap [Moles/Vol] 10 mmol/L Normal 7-20 [facility] Comment on above: Performed By: #### L [id number] #### [facility] ([facility]) [address] [place] [address] Calcium [Mass/Vol] 8.8 mg/dL Normal 8.6-10.3 [facility] Comment on above: Performed By: #### L [id number] #### [facility] ([facility]) [address] [place] [address] Chloride [Moles/Vol] 91 mmol/L Low 98-107 [facility] Comment on above: Performed By: #### L [id number] #### [facility] ([facility]) [address] [place] [address] CO2 [Moles/Vol] 39 mmol/L High 21-31 [facility] Comment on above: Performed By: #### L [id number] #### [facility] ([facility]) [address] [place] [address] Creatinine [Mass/Vol] 0.70 mg/dL Normal 0.60-1.20 [facility] Comment on above: Performed By: #### L [id number] #### [facility] ([facility]) [address] [place] [address] GLOMERULAR FILTRATION RATE ML/MIN/1.73 SQ M.PREDICTED 107.3 mL/min/1.73m*2 Normal >60.0 [facility] Comment on above: Result Comment: The [facility]???s estimated glomerular filtration rate (eGFR) will [...] group of individuals. Performed By: #### L [id number] #### [facility] ([facility] [address] [facility] [place] [address] Glucose [Mass/Vol] 231 mg/dL High 70-100 [facility] Comment on above: Performed By: #### L [id number] #### [facility] ([facility] [address] [facility] [address] Potassium [Moles/Vol] 3.7 mmol/L Normal 3.5-5.1 [facility] Comment on above: Performed By: #### L [id number] #### [facility] ([facility] [address] [facility] [place] [address] Sodium [Moles/Vol] 136 mmol/L Normal 136-145 [facility] Comment on above: Performed By: #### L [id number] #### [facility] ([facility] [address] [place] [address] Urea nitrogen [Mass/Vol] 29 mg/dL High 7-25 [facility] Comment on above: Performed By: #### L [id number] #### [facility] ([facility] [address] [place] [address] UREA NITROGEN/CREATININE (MASS RATIO) IN SER/PLAS 41.4 Normal [facility] Comment on above: Performed By: #### L [id number] #### [facility] ([facility] [address] [facility] [place] [address] CBCon 11-16-2023 Erythrocyte distribution width (RBC) [Ratio] 13.2 % Normal 11.5-15.0 [facility] Comment on above: Performed By: #### L [id number] #### [facility] ([facility]) [address] [place] [address] ERYTHROCYTE MEAN CORPUSCULAR HEMOGLOBIN CONCENTRATION (G/DL) BY AUTOMATED 32.4 g/dL Normal 32.0-35.0 [facility] Comment on above: Performed By: #### L [id number] #### [facility] ([facility] [address] [place] [address] Hematocrit (Bld) [Volume fraction] 56.2 % High 36.0-48.0 [facility] Comment on above: Performed By: #### L [id number] #### [facility] ([facility] [address] [place] [address] Hemoglobin (Bld) [Mass/Vol] 18.2 g/dL High 12.0-15.0 [facility] Comment on above: Performed By: #### L [id number] #### [facility] ([facility]) [address] [place] [address] MCH (RBC) [Entitic mass] 30.6 pg Normal 27.0-33.0 [facility] Comment on above: Performed By: #### L [id number] #### [facility] ([facility]) [address] [place] [address] MCV (RBC) [Entitic vol] 94.5 fL Normal 82.0-98.0 [facility] Comment on above: Performed By: #### L [id number] #### [facility] ([facility]) [address] [place] [address] PLATELETS (10*3/UL) IN BLOOD AUTOMATED COUNT 237 10*3/uL Normal 150-400 [facility] Comment on above: Performed By: #### L [id number] #### [facility] ([facility]) [address] [place] [address] RBC (Bld) [#/Vol] 5.95 10*6/uL High 3.80-5.00 [facility] Comment on above: Performed By: #### L [id number] #### [facility] ([facility]) [address] [place] [address] WBC (Bld) [#/Vol] 12.17 10*3/uL High 4.00-10.60 [facility] Comment on above: Performed By: #### L [id number] #### [facility] ([facility]) [address] [place] [address] CT CHEST HIGH RESOLUTION WO CONTRASTon 08-02-2023 [...] reasonably achievable. Electronically signed: Lonnie Tolentino. Normal [facility] CTA HEART STRUCTURE MORPHOLO GY W [...] the actual shunt. No pericardial effusion Large [id number] images obtained but there is no evidence [...] with atelectasis Electronically signed: Cade Farley. Normal [facility] HPon 08-02-2023 HP H&P reviewed. The daniel richards was examined and there are no changes to the H&P. Normal [facility] LEGIONELLA ANTIGEN, URINEon 08-02-2023 LEGIONELLA AG, UR Negative Normal NEG [facility] Comment on above: Result Comment: L. p neumophila serogroup 1 antigen not detected. A negative result does not exclude infection with Leginella pnemophila serogroup 1 nor does it rule out other microbial-caused respiratory infections of disease caused by other serogroups of Legionella pneumophila. Test Performed by [facility] [address] [place] [address] - Released 08/02/2023 19:58 Performed By: #### L [id number] #### [facility] ([facility]) [address] [place] [address] MAGNESIUMon 08-02-2023 Magnesium [Mass/Vol] 2.0 mg/dL Normal 1.9-2.7 [facility] Comment on above: Performed By: #### L [id number] #### [facility] ([facility]) [address] [place] [address] MRSA/MSSA DNA NASALon 2022 MRSA DNA Negative Normal Negative [facility] Comment on above: Order Comment: Testi ng methodology is an automated qualitative in vitro diagnostic test for the directdetection and differentiation of Staphylococcus aureus (SA) DNA and methicillin-resistant Staphylococcus aureus (MRSA) DNA from nasal swabs in patients at risk for nasal colonization. The test utilizes real-time polymerase chain reaction (PCR) for the amplification of MRSA/SA DNA and fluorogenic target-specific hybridization probes for the detection of the amplified DNA. A negative result does not preclude nasal colonization. Performed By: #### L [id number] #### [facility] ([facility]) [address] [place] [address] MSSA DNA Negative Normal Negative [facility] Comment on above: Order Comment: Testi ng methodology is an automated qualitative in vitro diagnostic test for the directdetection and differentiation of Staphylococcus aureus (SA) DNA and methicillin-resistant Staphylococcus aureus (MRSA) DNA from nasal swabs in patients at risk for nasal colonization. The test utilizes real-time polymerase chain reaction (PCR) for the amplification of MRSA/SA DNA and fluorogenic target-specific hybridization probes for the detection of the amplified DNA. A negative result does not preclude nasal colonization. Performed By: #### L [id number] #### [facility] ([facility] [address] [place] [address] NM LUNG PERFUSION PARTICULAT Cruzito 08-02-2023 NM [...] pulmonary thromboembolism. Electronically signed: Lonnie Tolentino. Normal [facility] PHOSPHORUSon 08-02-2023 Magnesium [Mass/Vol] 4.5 mg/dL Normal 2.5-5.0 [facility] Comment on above: Performed By: #### L [id number] #### [facility] ([facility] [address] [place] [address] POCT GLUCOSE METER UNSOLICIT ED RESULTSon 08-02-2023 Glucose [Mass/Vol] 337 mg/dL High 70-105 [facility] Comment on above: Order Comment: Waive d Testing in the ED is performed under the ED CLIA certificate #[id number]. Result Comment: ebol tz Performed By: #### L [id number] #### [facility] ([facility] [address] [place] [address] Glucose [Mass/Vol] 164 mg/dL High 70-105 [facility] Comment on above: Order Comment: Waive d Testing in the ED is performed under the ED CLIA certificate #[id number]. Result Comment: lhag iga Performed By: #### L [id number] #### [facility] ([facility]) [address] [place] [address] Glucose [Mass/Vol] 218 mg/dL High 70-105 [facility] Comment on above: Order Comment: Waive d Testing in the ED is performed under the ED CLIA certificate #[id number]. Result Comment: ebol tz Performed By: #### L [id number] #### [facility] ([facility]) [address] [place] [address] PROCALCITONIN TESTon 023 PROCALCITONIN IN BLOOD 0.04 ng/mL Normal 0.00-0.10 [facility] Comment on above: Result Comment: Susp ected [...] and initial PCT<0.5ng/mL Performed By: #### L [id number] ####[facility] ([facility])[address] [place] [address] RHEUMATOID FACTORon 08-02-20 23 Rheumatoid factor Qn [IU]/mL Normal 0-20 [facility] Comment on above: Performed By: #### L [id number] #### [facility] ([facility] [address] [place] [address] RNA POLYMERASE III ANTIBODY IGGon 08-02-2023 RNA POLYMERASE III ANTIBODY, IGG 11 Units Normal 0-19 [facility] Comment on above: Result Comment: INTE [...] antibodies associated with SSc, including centromere, Scl-70, U3-HAND MOLDER AND CASTER, PM/Scl, or Th/To. Performed By: [facility] [address] [place] [address] Vehicle Dynamics Engineer: Saturnino Rai MD, PhD CLIA Number: [id number] Performed By: #### L [id number] #### [facility] ([facility] [address] [place] [address] SJOGRENS SYNDROME ANTIBODIES A AND Bon 08-02-2023 IVAN TO SSA (RO) ANTIBODY Negative Normal Negative [facility] Comment on above: Performed By: #### L [id number] #### [facility] ([facility] [address] [place] [address] IVAN TO SSB (LA) ANTIBODY Negative Normal Negative [facility] Comment on above: Performed By: #### L [id number] #### [facility] ([facility] [address] [place] [address] STREP PNEUMONIAE ANTIGEN, UR INEon 08-02-2023 STREPTOCOCCUS PNEUMONIAE AG PRESENCE IN URINE Negative Normal Negative [facility] Comment on above: Performed By: #### L [id number] #### [facility] ([facility] [address] [place] [address] TROPONIN Ion 08-02-2023 Troponin I.cardiac [Mass/Vol] 0.03 ng/mL Normal 0.00-0.04 [facility] Comment on above: Performed By: #### L [id number] ####[facility] ([facility] [place] [address] 30on 08-01-2023 30 The patient is Moder [...] ensuring proper positioning, support, and education. Normal [facility] APTTon 08-01-2023 ACTIVATED PARTIAL THROMBOPLASTIN TIME IN PPP BY COAGULATION ASSAY 24.1 Seconds Low 25.0-35.0 [facility] Comment on above: Result Comment: Clin ical significance of the APTT is questionable in the presence of heparin. Performed By: #### L [id number] #### [facility] ([facility] [address] [place] [address] ARTERIAL BLOOD GAS WITH CO-O XIMETRYon 08-01-2023 Base excess Calc (Bld) [Moles/Vol] 20.9 mmol/L High -2.0-3.0 [facility] Comment on above: Order Comment: bipap Performed By: #### L [id number] #### [facility] ([facility] [address] [place] [address] CARBOXYHEMOGLOBIN/H EMOGLOBIN TOTAL % IN BLOOD 1.5 % Normal 0.0-3.0 [facility] Comment on above: Order Comment: bipap Performed By: #### L [id number] #### [facility] ([facility]) [address] [place] [address] CO2 (Bld) [Partial pressure] 58 mm[Hg] Critically high 35-48 [facility] Comment on above: Order Comment: bipap Performed By: #### L [id number] #### [facility] ([facility]) [address] [place] [address] DEOXYGENATED HEMOGLOBIN IN BLOOD 5.4 % High 1-5 [facility] Comment on above: Order Comment: bipap Performed By: #### L [id number] #### [facility] ([facility]) [address] [place] [address] FIO2 40 % Normal [facility] Comment on above: Order Comment: bipap Performed By: #### L [id number] #### [facility] ([facility]) [address] [place] [address] HCO3 (Bld) [Moles/Vol] 48.5 mmol/L High 21.0-28.0 [facility] Comment on above: Order Comment: bipap Performed By: #### L [id number] #### [facility] ([facility]) [address] [place] [address] Hemoglobin (Bld) [Mass/Vol] 18.3 g/dL Critically high 11.7-17.4 [facility] Comment on above: Order Comment: bipap Performed By: #### L [id number] #### [facility] ([facility]) [address] [place] [address] METHEMOGLOBIN/100 IN BLOOD 0.8 % Normal 0.0-1.5 [facility] Comment on above: Order Comment: bipap Performed By: #### L [id number] #### [facility] ([facility]) [address] [place] [address] Oxygen (Bld) [Partial pressure] 66 mm[Hg] Low 83-100 [facility] Comment on above: Order Comment: bipap Performed By: #### L [id number] #### [facility] ([facility]) [address] [place] [address] OXYGEN SATURATION (%) IN ARTERIAL BLOOD 94.5 % Normal 94.0-98.0 [facility] Comment on above: Order Comment: bipap Performed By: #### L [id number] #### [facility] [address] [place] [address] OXYGENATED HEMOGLOBIN IN BLOOD 92.3 % Normal 90.0-95.0 [facility] Comment on above: Order Comment: bipap Performed By: #### L [id number] #### [facility] ([facility] [address] [place] [address] pH (Bld) 7.53 [pH] High 7.35-7.45 [facility] Comment on above: Order Comment: bipap Performed By: #### L [id number] #### [facility] ([facility] [address] [place] [address] RESPIRATORY RATE 14 Normal [facility] Comment on above: Order Comment: bipap Performed By: #### L [id number] #### [facility] ([facility] [address] [place] [address] SOURCE OF OXYGEN Bi-PAP Normal [facility] Comment on above: Order Comment: bipap Performed By: #### L [id number] #### [facility] [address] [place] [address] B-TYPE NATRIURETIC PEPTIDEon 08-01-2023 Natriuretic peptide B (Bld) [Mass/Vol] 145 pg/mL High 0-100 [facility] Comment on above: Performed By: #### L [id number] #### [facility] ([facility]) [address] [place] [address] BLOOD CULTUREon 08-01-2023 Bacteria identified Cx Nom (Bld) No growth at 5 days Normal [facility] Comment on above: Performed By: #### L [id number] #### [facility] ([facility]) [address] [place] [address] CBC WITH AUTO DIFFERENTIALon 08-01-2023 Basophils (Bld) [#/Vol] 0.02 10*3/uL Normal 0.00-0.20 [facility] Comment on above: Performed By: #### L [id number] #### [facility] ([facility]) [address] [place] [address] Basophils/100 WBC (Bld) 0.2 % Normal 0.0-1.0 [facility] Comment on above: Performed By: #### L [id number] #### [facility] ([facility]) [address] [place] [address] Eosinophils (Bld) [#/Vol] 0.01 10*3/uL Normal 0.00-0.50 [facility] Comment on above: Performed By: #### L [id number] #### [facility] [address] [place] [address] Eosinophils/100 WBC (Bld) 0.1 % Normal 0.0-6.0 [facility] Comment on above: Performed By: #### L [id number] #### [facility] [address] [place] [address] Erythrocyte distribution width (RBC) [Ratio] 13.2 % Normal 11.5-15.0 [facility] Comment on above: Performed By: #### L [id number] #### [facility] ([facility]) [address] [place] [address] ERYTHROCYTE MEAN CORPUSCULAR HEMOGLOBIN CONCENTRATION (G/DL) BY AUTOMATED 33.1 g/dL Normal 32.0-35.0 [facility] Comment on above: Performed By: #### L [id number] #### [facility] (BEAKER) [address] [place] [address] Hematocrit (Bld) [Volume fraction] 54.1 % High 36.0-48.0 [facility] Comment on above: Performed By: #### L [id number] #### [facility] (BEAKER) [address] [place] [address] Hemoglobin (Bld) [Mass/Vol] 17.9 g/dL High 12.0-15.0 [facility] Comment on above: Performed By: #### L [id number] #### [facility] ([facility] [address] [place] [address] Immature granulocytes (Bld) [#/Vol] 0.10 10*3/uL Normal 0.00-0.20 [facility] Comment on above: Performed By: #### L [id number] #### [facility] ([facility] [address] [place] [address] Immature granulocytes/100 WBC (Bld) 1.1 % High 0.0-1.0 [facility] Comment on above: Performed By: #### L [id number] #### [facility] ([facility] [address] [place] [address] Lymphocytes (Bld) [#/Vol] 0.40 10*3/uL Low 1.20-4.00 [facility] Comment on above: Performed By: #### L [id number] #### [facility] ([facility] [address] [place] [address] Lymphocytes/100 WBC (Bld) 4.2 % Low 20.0-45.0 [facility] Comment on above: Performed By: #### L [id number] #### [facility] ([facility] [address] [place] [address] MCH (RBC) [Entitic mass] 30.6 pg Normal 27.0-33.0 [facility] Comment on above: Performed By: #### L [id number] #### [facility] ([facility] [address] [place] [address] MCV (RBC) [Entitic vol] 92.5 fL Normal 82.0-98.0 [facility] Comment on above: Performed By: #### L [id number] #### [facility] [address] [place] [address] Monocytes (Bld) [#/Vol] 0.50 10*3/uL Normal 0.10-1.00 [facility] Comment on above: Performed By: #### L [id number] #### [facility] ([facility] [address] [address] Monocytes/100 WBC (Bld) 5.3 % Normal 5.0-12.0 [facility] Comment on above: Performed By: #### L [id number] #### [facility] ([facility] [address] [place] [address] Neutrophils (Bld) [#/Vol] 8.47 10*3/uL High 1.60-7.60 [facility] Comment on above: Performed By: #### L [id number] #### [facility] ([facility] [address] [place] [address] Neutrophils/100 WBC (Bld) 89.1 % High 40.0-72.0 [facility] Comment on above: Performed By: #### L [id number] #### [facility] ([facility] [address] [place] [address] NRBC (PER 100 WBCS) BY AUTOMATED COUNT 0.0 % Normal 0 [facility] Comment on above: Performed By: #### L [id number] #### [facility] ([facility] [address] [place] [address] PLATELETS (10*3/UL) IN BLOOD AUTOMATED COUNT 265 10*3/uL Normal 150-400 [facility] Comment on above: Performed By: #### L [id number] #### [facility] ([facility] [address] [place] [address] RBC (Bld) [#/Vol] 5.85 10*6/uL High 3.80-5.00 [facility] Comment on above: Performed By: #### L [id number] #### [facility] ([facility] [address] [place] [address] WBC (Bld) [#/Vol] 9.50 10*3/uL Normal 4.00-10.60 [facility] Comment on above: Performed By: #### L [id number] #### [facility] ([facility] [address] [place] [address] COMPREHENSIVE METABOLIC PANE Matty 08-01-2023 Albumin [Mass/Vol] 3.5 g/dL Normal 3.5-5.7 [facility] Comment on above: Performed By: #### L [id number] #### [facility] ([facility] [address] [place] [address] ALP [Catalytic activity/Vol] 54 U/L Normal 34-104 [facility] Comment on above: Performed By: #### L [id number] #### [facility] ([facility] [address] [place] [address] ALT [Catalytic activity/Vol] 10 U/L Normal 7-52 [facility] Comment on above: Performed By: #### L [id number] #### [facility] ([facility] [address] [place] [address] Anion gap [Moles/Vol] 10 mmol/L Normal 7-20 [facility] Comment on above: Performed By: #### L [id number] #### [facility] ([facility] [address] [place] [address] AST [Catalytic activity/Vol] 8 U/L Low 13-39 [facility] Comment on above: Performed By: #### L [id number] #### [facility] ([facility] [address] [place] [address] Bilirubin [Mass/Vol] 0.9 mg/dL Normal 0.3-1.0 [facility] Comment on above: Performed By: #### L [id number] #### [facility] ([facility] [address] [place] [address] Calcium [Mass/Vol] 9.0 mg/dL Normal 8.6-10.3 [facility] Comment on above: Performed By: #### L [id number] #### [facility] ([facility] [address] [place] [address] Chloride [Moles/Vol] 90 mmol/L Low 98-107 [facility] Comment on above: Performed By: #### L [id number] #### [facility] ([facility] [address] [place] [address] CO2 [Moles/Vol] 40 mmol/L High 21-31 [facility] Comment on above: Performed By: #### L [id number] #### [facility] ([facility] [address] [facility] [place] [address] Creatinine [Mass/Vol] 0.60 mg/dL Normal 0.60-1.20 [facility] Comment on above: Performed By: #### L [id number] #### [facility] ([facility] [address] [place] [address] GLOMERULAR FILTRATION RATE ML/MIN/1.73 SQ M.PREDICTED 111.3 mL/min/1.73m*2 Normal >60.0 [facility] Comment on above: Result Comment: The [facility]???s estimated glomerular filtration rate (eGFR) will [...] individuals. Performed By: #### L [id number] #### [facility] ([facility] [address] [place] [address] Glucose [Mass/Vol] 280 mg/dL High 70-100 [facility] Comment on above: Performed By: #### L [id number] #### [facility] ([facility] [address] [place] [address] Potassium [Moles/Vol] 3.5 mmol/L Normal 3.5-5.1 [facility] Comment on above: Performed By: #### L [id number] #### [facility] ([facility] [address] [place] [address] Protein [Mass/Vol] 6.4 g/dL Normal 6.0-8.3 [facility] Comment on above: Performed By: #### L [id number] #### [facility] ([facility] [address] [place] [address] Sodium [Moles/Vol] 136 mmol/L Normal 136-145 [facility] Comment on above: Performed By: #### L [id number] #### [facility] ([facility] [address] [place] [address] Urea nitrogen [Mass/Vol] 27 mg/dL High 7-25 [facility] Comment on above: Performed By: #### L [id number] #### [facility] ([facility] [address] [facility] [place] [address] UREA NITROGEN/CREATININE (MASS RATIO) IN SER/PLAS 45.0 Normal [facility] Comment on above: Performed By: #### L [id number] #### [facility] ([facility] [address] [place] [address] CONSULTon 08-01-2023 CONSULT ----- ----- Attestation signed [...] PMH of Asthma, who presented intimally to [facility] on 07/25 due to SOB that [...] to 76 mmHg. She was transferred to [facility] for Right heart Catheterization. She reports being [...] likely d (more content not included)... Normal [facility] EXTRACTABLE NUCLEAR ANTIGEN ANTIBODIESon 08-01-2023 ANTI SM AB Negative Normal [facility] Comment on above: Performed By: #### L [id number] #### [facility] (BEAKER) [address] [place] [address] ANTI SM/ANTIRNP AB Negative Normal [facility] Comment on above: Performed By: #### L [id number] #### [facility] (BEAKER) [address] [place] [address] GRAM STAINon 08-01-2023 GRAM STAIN RESULT Normal [facility] Comment on above: Result Comment: Spec imen contains >25 Epithelial Cells/LPF, unsuitable for culture. Please submit a new specimen >25 Squamous Epithelial Cells Per Low Power Field >25 Polys Per Low Power Field Many Gram positive cocci in pairs Many Gram positive bacilli Performed By: #### L [id number] #### [facility] (BEAKER) [address] [address] HPon 08-01-2023 HP ----- ----- Attestation signed [...] PMH of Asthma, who presented intimally to [facility] on 07/25 due to SOB that [...] to 76 mmHg. She was transferred to [facility] for Right heart Catheterization. She reports being [...] likely d (more content not included)... Normal [facility] HP ----- ----- Attestation signed by Lissette [...] 1:47 AM Chief Complaint Initial presentation to [facility] with worsening shortness of breath, transferred to [facility] for right heart cath History of Present Illness 47-year-old female who presented to [facility] on 07/25 with 4 days of [...] following the patient's, who recommended transfer to [facility] for right heart cath. At [facility] Medication at [facility]: Tylenol, DuoNebs, Xanax, Lovenox for DVT prophylaxis, [...] for: PREALBUMIN, TSH, T3FREE, FREET4, CORTISOL, FEV1, TKU3INA, DLCO, RVSP, HDL, LDL No results found for: [id number], IRON, (more content not included)... Normal [facility] MAGNESIUMon 08-01-2023 Magnesium [Mass/Vol] 1.9 mg/dL Normal 1.9-2.7 [facility] Comment on above: Performed By: #### L [id number] ####[facility] (BEAKER)[address] [place] [address] MPO/PR3 REFLEX TO ANCAon MYELOPEROXIDASE (MPO) AB, IGG 0 AU/mL Normal 0-19 [facility] Comment on above: Result Comment: INTE RPRETIVE INFORMATION: Myeloperoxidase Abs, IgG 19 AU/mL or Less ......... Negative 20-25 AU/mL .............. Equivocal 26 AU/mL or Greater ...... Positive Approximately 90% of patients with a P-ANCA pattern by IFA have antibodies specific for MPO. Performed By: #### L [id number] #### [facility] (BEAKER) [address] [place] [address] SERINE PROTEINASE 3 (PR3) AB, IGG 1 AU/mL Normal 0-19 [facility] Comment on above: Result Comment: Myeloperoxidase [...] have antibodies specific for PR3. Performed By: [facility] [address] [place] [address] Vehicle Dynamics Engineer: Saturnino Rai MD, PhD CLIA Number: [id number] Performed By: #### L [id number] #### [facility] (BESupersonic) [address] [place] [address] PHOSPHORUSon 08-01-2023 Magnesium [Mass/Vol] 3.8 mg/dL Normal 2.5-5.0 [facility] Comment on above: Performed By: #### L [id number] #### [facility] (BEAKER) [address] [place] [address] POCT GLUCOSE METER UNSOLICIT ED RESULTSon 08-01-2023 Glucose [Mass/Vol] 310 mg/dL High 70-105 [facility] Comment on above: Order Comment: Waive d Testing in the ED is performed under the ED CLIA certificate #[id number]. Result Comment: ebol tz Performed By: #### L [id number] #### [facility] (BEAKER) [address] [place] [address] Glucose [Mass/Vol] 233 mg/dL High 70-105 [facility] Comment on above: Order Comment: Waive d Testing in the ED is performed under the ED CLIA certificate #[id number]. Result Comment: [email or web address] [email or web address] Performed By: #### L [id number] #### [facility] (BEAKER) [address] [place] [address] PROCALCITONIN TESTon 023 PROCALCITONIN IN BLOOD 0.03 ng/mL Normal 0.00-0.10 [facility] Comment on above: Result Comment: Susp ected [...] and initial PCT<0.5ng/mL Performed By: #### L [id number] #### [facility] (BEAKER) [address] [place] [address] PROTIME-INRon 08-01-2023 INR IN PPP BY COAGULATION ASSAY 1.10 Normal 0.90-1.10 [facility] Comment on above: Result Comment: ACCC P [...] 1995;108:231S-246S. Performed By: #### L [id number] #### [facility] ([facility] [address] [place] [address] PROTHROMBIN TIME (PT) IN PPP BY COAGULATION ASSAY 14.3 Seconds Normal 12.3-14.8 [facility] Comment on above: Performed By: #### L [id number] #### [facility] ([facility] [address] [place] [address] TROPONIN Ion 08-01-2023 Troponin I.cardiac [Mass/Vol] 0.02 ng/mL Normal 0.00-0.04 [facility] Comment on above: Performed By: #### L [id number] #### [facility] ([facility] [address] [place] [address] ANVS-VkU-7xl 04-18-2020 SARS-CoV-2 Not Detected Normal Not Detected [facility] Comment on above: Result Comment: (NOT E) This test was developed and its performance characteristics determined by [employer]. This test has not been FDA cleared [...] detected) result in this assay. Performed At: [facility] [address] [facility] [place] [id number] Felisha Martinez MD Ph:[phone] Performed By: #### A COV #### [facility] [address] [place] [address] Cuff Setter Lockstitch: Lonnie Lozano MD Encounters Encounter Date Encounter Type Care Provider Facility Start: 09-04-2023 End: 09-04-2023 ambulatory [facility] Start: 08-29-2023 End: 08-30-2023 ambulatory [facility] Start: 08-28-2023 End: 08-28-2023 ambulatory [facility] Start: 08-08-2023 Evaluation and management of inpatient LIAI AMERICO [facility] Start: 08-07-2023 [facility]: 08-07-[facility]23 Evaluation and management of inpatient DB HICKS [facility] Start: 08-02-2023 Evaluation and management of inpatient MCLAUGHLIN [facility] Start: 08-02-2023 ambulatory [facility] Start: 08-02-2023 Evaluation and management of inpatient MCLAUGHLIN ANA ALI [facility] Start: 08-02-2023 Evaluation and management of inpatient MCLAUGHLIN ANA [facility] Start: 08-01-2023 End: 08-09-2023 Evaluation and management of inpatient OLMAN DAVEY [facility] Start: 04-15-2020 End: 04-16-2020 Patient encounter procedure [facility] Start: 04-15-2020 End: 04-15-2020 [facility] Covid Screening Comment on above: Arrived Procedures Date Procedure Procedure Detail Performing Clinician Start: 04-15-2020 COVID-19 AMBULATORY SREEKANTH PACHECO Plan of Treatment Date Care Activity Detail Author Start: 05-18-2020 Influenza vaccination Flu vaccine (# 1) [place], [place] Start: 2015 Lipid panel Lipid screen [place], [place] Start: 1996 Screening for malign ant neoplasm of cervix Cervical cancer screen [place], [place] Start: 1994 DTaP/Tdap/Td vaccine (1 - Tdap) DTaP/Tdap/Td vaccine (1 - Tdap) [place] Start: 1990 HIV screening HIV screen [facility] [place], [place] End: 04-15-2020 Covid-19 Ambulatory Covid-19 Ambulatory Lab Routine Once for 1 Occurrences starting 04/15/2020 until 04/15/2020 [place] Comment on above: Once for 1 Occurrenc es starting 04/15/2020 until 04/15/2020 Covid-19 Ambulatory Covid-19 Amb ulatory Lab Routine 04/15/2020 6:59 AM EDT [place] Payers Date Payer Category Payer Private Health Insurance [id number] 2014 Unknown [id number] 2014 Unknown [employer] [address] [id number] 2014-Present [phone] [address] [place] [address] [id number] 1975 Unknown [id number] Social History Date Type Detail Facility Tobacco smoking status NHIS Unknown if ev er smoked [place], [place] Sex Assigned At Not on file [place] Clinical Notes 08-02-2023 to 08-28-2023 Note Date & Type Note Facility 08-28-2023 Note OR Cardiology - [facility] Subjective Daniel Richie Lynn is a 47 y.o. year old female patient being seen for follow up [facility]. Says her insurance will only pay for [...] evidence of ostium secundum ASD with significant xady-gx-rqwmc shunting across it, severe pulmonary hypertension and [...] pulmonary AV malformation or other source of itim-kc-btbti shunting. She was started on therapy with [...] 0.42 (L) 08/09/2023 (more content not included)... [facility] 08-09-2023 Note [facility] for home [phone] and faxed script /f2f [phone] They are able to set up home 02. Patient given tank and advised to call [facility] once home( in route) Received fax, on phone with rep at [facility]. Received confirmation they have order and will set up for patient, [facility] 08-09-2023 Note Met with Patient bed [...] steriods she is on at hospital'. No HHC referrals sent as Pt declines HHC arrangements. Medical team notified of Pt decision [facility] 08-09-2023 Note Hospital Medicine Discharge Summary Final Discharge Diagnosis: Acute hypoxic respiratory failure, likely due to Pulmonary Hypertension Large secundum ASD with bidirectional flow. The largest septal defect measured 3.5 cm, confirmed by Cardiac MRI & MATT New onset DM-II Admission Diagnosis: Dyspnea on exertion [R06.09] Hospital course: 47-year-old female who presented to [facility] on 07/25 with 4 days of [...] following the patient's, who recommended transfer to [facility] for right heart cath. At [facility] Medication at [facility]: Tylenol, DuoNebs, Xanax, Lovenox for DVT prophylaxis, [...] COVID-pneumonia. Patient was transferred to medical ICU [facility] for hypoxic respiratory failure likely due [...] Your Medications These medications were sent to [facility]/pharmacy #[id number] - [facility] [address] [address] furosemide 40 mg tablet insulin detemir (more content not included)... [facility] 08-09-2023 Note ------ Attestation signed by Kvng Kumar MD at 08/09/2023 11:18 PM I reviewed the salient portions of the patient history. Agree with the noted assessment and plan. Kvng Kumar MD [facility] ------ [...] Date Asthma COPD (chronic obstructive pulmonary disease) ([facility]) Diabetes mellitus ([facility]) Hypertension MTHFR gene mutation Obesity Allergies Allergen [...] shifts: In: 1 (more content not included)... [facility] 08-09-2023 Note 08/09/23 0920 Home Oxygen Therapy Evaluation Pulse Oximetry on room air at Rest 94 Pulse Ox on O2 with nasal cannula while at rest 94 (3 lpm) Pulse Ox on room air while walking 84 Pulse Ox on O2 with nasal cannula while walking 94 (3 lpm) Patient Qualification for home oxygen Qualifies Patient qualifies for home oxygen 3 lpm. [facility] 08-08-2023 Note Hospital Medicine Daily Progress Note - 08/08/2023 1:15 PM; Room: [address] [place] [address] Admission: 08/01/2023 1:47 AM; Length of stay: 7 days THE HOSPITALIST TEAM PREFERS TO USE [employer] CHAT FOR COMMUNICATION 7AM-7PM. IF I DO NOT RESPOND WITHIN 15 MINUTES, PLEASE PAGE ME/CALL THROUGH THE SHOULDER PAD MOLDER. FROM 7PM-7AM, PLEASE PAGE [phone](COVR) Code Status: Full Code Barriers to Discharge: [...] from last 7 days Lab Units 08/08/236 08/07/237 WBC AUTO 10*3/uL 8.55 9.05 HEMOGLOBIN g/dL 15.1* 15.4* HEMATOCRIT % 47.5 47.3 MCV fL 93.3 92.6 PLATELETS AUTO 10*3/uL 190 194 Chemistry: Results from last 7 days Lab Units 08/08/23 0456 08/07/23 0427 08/06/23 0414 SODIUM mmol/L 135* 134* 135* POTASSIUM [...] TSH 0.56 08/03/2023 No results found for: [id number], IRON, TIBC, C3, C4, PHANI, CANCA, ASO, [...] vascular detail. FI (more content not included)... [facility] 08-08-2023 Note Nutrition Screening Assessment: Patient Name: Daniel Lynn : 1975 Date of Assessment: 08/08/23 Nutrition re-screen completed Past Medical History: Diagnosis Date Asthma COPD (chronic obstructive pulmonary disease) ([facility]) Diabetes mellitus ([facility]) Hypertension MTHFR gene mutation Obesity Information obtained [...] Comments: Entree salad, tomato, cucumber, ranch and icelandic dressing, diet coke, quesadilla with grilled chicken [...] with questions and contact the dietitian via [employer] chat 8A-4P Sunday-Sunday. Or call the dietitian's office at extension [phone]. For s/holidays, the dietitian's can be reached by paging [phone] from 9A-3P. Unable to be reached via [employer] on Sunday & .) [facility] 08-08-2023 Note ------ Attestation signed by Raza Leonard MD at 08/08/2023 12:46 PM I reviewed the salient portions of the patient history. I have seen and examined the patient during rounds with the resident/fellow. I repeated the askew components of the exam. Agree with the noted assessment and plan. Raza Leonard MD [facility] Pulmonary interventional and Critical Care Medicine [...] Date Asthma COPD (chronic obstructive pulmonary disease) ([facility] Diabetes mellitus ([facility]) Hypertension MTHFR gene mutation Obesity Allergies Allergen [...] MSK: no my (more content not included)... [facility] 08-08-2023 Note Occupational Therapy Occupational Therapy Evaluation Patient Name: Daniel Lynn : 1975 Today's Date: 08/08/2023 Time In: 742 Time Out: 754 47 y/o female adm from [place] with pneumonia and for workup for atrial septal defect. [facility] 08/04/23 General Subjective: friendly and cooperative, reports [...] Level of Function Prior Function Level of [place]: Independent with ADLs and functional transfers, Independent [...] Eating meals?: None (Independent) Total Score OT [facility]: 24 Assessment/Plan OT Assessment OT Education/Comments: may benefit to use shower chair, brief discussion about ws/ec/pacing with good verbal return Plan OT Plan: No skilled OT Equipment Recommended: (ssc) OT - Discharge Recommendations Placed: Yes OT Goals Multi-Disciplinary Problems (from Occupational Therapy) Active Problems Not on file [facility] 08-08-2023 Note ------ Attestation signed by [...] -- 90 18 (!) 89 % -- 08/07/235 137/75 36.5 ???C (97.7 ???F) Temporal 89 [...] Transesophageal Echo (MATT) Result Date: 08/07/2023 1 OR [facility] Heart Station [address] [place] [address] [phone] (fax) Transesophageal Echocardiogram-[facility] Name: DANIEL LYNN Study Date: 08/07/2023 04:01 PM B/P: 124 mmHg/80 mmHg HR: 97 bpm Date of : 1975 Location: [facility] Height: 62 in. Age: 47 year(s) Patient Room: 3233 Weight: 268 lb. Gender: Female Patient Status: InPt BSA: 2.16 m2 Indication: pre-op ASD Examination: MATT/Limited Doppler/CFI, 3D images Image Quality: Good Patient Consent: Informed, written consent was obtained for the procedure Exam Location: A MATT was performed in the [employer] without complications Anesthesia Pharyngeal anesthesia with viscous [...] aortic valve regurgi (more content not included)... [facility] 08-07-2023 Note Patient: Daniel rizvi Procedure Information Date/Time: 08/07/23 1000 Procedures: Coronary angiography Right heart cath Location: [facility] REGISTERED VASCULAR TECHNOLOGIST (RVT) 2 BIPLANE / [facility]ASCULAR [facility] (Cath) Providers: Chris Roger MD [...] with fellow and attending. Additional Equipment Requests [facility] 08-07-2023 Note H&P reviewed. RHC an d cardiac CT c/w PH and ASD. Plan for RHC/coronary angiogram for assessment of ASD closure. Procedures' details, risks and benefits discussed with the patient and she's agreeable. 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 [facility] 08-07-2023 Note ------ Attestation signed by [...] Bubble Study Result Date: 08/02/2023 1 1 [facility] Heart Station [address] [place] [address] [phone] (fax) Echocardiogram-[facility] Name: DANIEL LYNN Study Date: 08/02/2023 09:04 AM B/P: 121 mmHg/88 mmHg HR: 66 bpm Date of : 1975 Location: [facility] Height: 62 in. Age: 47 year(s) Patient [...] tricuspid valve debora (more content not included)... [facility] 08-07-2023 Note ------ Attestation signed by Kvng Kumar MD at 08/07/2023 11:57 PM I reviewed the salient portions of the patient history. I have seen and examined the patient during rounds with the resident/fellow. I repeated the askew components of the exam. Agree with the noted assessment and plan. Kvng Kumar MD [facility] ------ Medical ICU Progress Note Patient - Daniel Lynn Age - 47 y.o. - 1975 [facility] - [id number] Date of Admission - 08/01/2023 1:47 AM HPI/Hospital Course Subjective 47-year-old female who presented to [facility] on 07/25 with 4 days of [...] following the patient's, who recommended transfer to [facility] for right heart cath. At [facility] Medication at [facility]: Tylenol, DuoNebs, Xanax, Lovenox for DVT prophylaxis, [...] COVID-pneumonia. Patient was transferred to medical ICU [facility] for hypoxic respiratory failure likely due [...] 24 hours) at (more content not included)... [facility] 08-06-2023 Note ------ Attestation signed by [...] 130/78 -- -- 77 24 98 % 08/05/232019 119/67 36.6 ???C (97.9 ???F) Temporal 80 [...] Bubble Study Result Date: 08/02/2023 1 1 [facility] Heart Station [address] [place] [address] [phone] (fax) Echocardiogram-[facility] Name: DANIEL LYNN Study Date: 08/02/2023 09:04 AM B/P: 121 mmHg/88 mmHg HR: 66 bpm Date of : 1975 Location: [facility] Height: 62 in. Age: 47 year(s) Patient [...] Global left ventricu (more content not included)... [facility] 08-06-2023 Note ------ Attestation signed by [...] Course Subjective 47-year-old female who presented to [facility] on 07/25 with 4 days of [...] following the patient's, who recommended transfer to [facility] for right heart cath. At [facility] Medication at [facility]: Tylenol, DuoNebs, Xanax, Lovenox for DVT prophylaxis, [...] COVID-pneumonia. Patient was transferred to medical ICU [facility] for hypoxic respiratory failure likely due [...] Decrease breath sounds (more content not included)... [facility] 08-05-2023 Note Subjective Daniel Lynn is a 47 y.o. female with PMH of Asthma and Obesity who was initially evaluated in [place] on 07/25 with with 4 days of [...] the patient and they recommended transfer to [facility] for right heart catherization. She arrived to [facility] 08/01 where she was admitted to the [...] Neurological: Mental Stat (more content not included)... [facility] 08-05-2023 Note Subjective Daniel Lynn is a 47 y.o. female with PMH of Asthma and Obesity who was initially evaluated in [place] on 07/25 with with 4 days of [...] the patient and they recommended transfer to [facility] for right heart catherization. She arrived to [facility] 08/01 where she was admitted to the [...] Neurological: Mental Stat (more content not included)... [facility] 08-05-2023 Note Cardiology Progress Note Subjective [...] Bubble Study Result Date: 08/02/2023 1 1 [facility] Heart Station [address] [place] [address] [phone] (fax) Echocardiogram-[facility] Name: DANIEL LYNN Study Date: 08/02/2023 09:04 AM B/P: 121 mmHg/88 mmHg HR: 66 bpm Date of : 1975 Location: [facility] Height: 62 in. Age: 47 year(s) Patient [...] thickness is mildl (more content not included)... 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 Clinically patient is at very high risk for obstructive sleep apnea , and also have consistent history. ------ Medical ICU Progress Note Patient - Daniel Lynn Age - 47 y.o. - 1975 [facility] # - [id number] Date of Admission - 08/01/2023 1:47 AM HPI/Hospital Course Subjective 47-year-old female who presented to [facility] on 07/25 with 4 days of [...] following the patient's, who recommended transfer to [facility] for right heart cath. At [facility] Medication at [facility]: Tylenol, DuoNebs, Xanax, Lovenox for DVT prophylaxis, [...] COVID-pneumonia. Patient was transferred to medical ICU [facility] for hypoxic respiratory failure likely due [...] via nasal cannula. (more content not included)... [facility] 08-04-2023 Note ------ Attestation signed by [...] ------ Cardiology Progress Note Subjective Subjective: Daniel Mariam is feeling better today, reports improvement of [...] Bubble Study Result Date: 08/02/2023 1 1 [facility] Heart Station [address] [place] [address] [phone] (fax) Echocardiogram-[facility] Name: DANIEL LYNN Study Date: 08/02/2023 09:04 AM B/P: 121 mmHg/88 mmHg HR: 66 bpm Date of : 1975 Location: [facility] Height: 62 in. Age: 47 year(s) Patient [...] Value Normal Value (more content not included)... [facility] 08-04-2023 Note ------ Attestation signed by [...] Course Subjective 47-year-old female who presented to [facility] on 07/25 with 4 days of [...] following the patient's, who recommended transfer to [facility] for right heart cath. At [facility] Medication at [facility]: Tylenol, DuoNebs, Xanax, Lovenox for DVT prophylaxis, [...] COVID-pneumonia. Patient was transferred to medical ICU [facility] for hypoxic respiratory failure likely due [...] is 112/76 a (more content not included)... [facility] 08-03-2023 Note ------ Attestation signed by [...] Lynn Age - 47 y.o. - 1975 [facility] # - [id number] Date of Admission - 08/01/2023 1:47 AM HPI/Hospital Course Subjective 47-year-old female who presented to [facility] on 07/25 with 4 days of [...] following the patient's, who recommended transfer to [facility] for right heart cath. At [facility] Medication at [facility]: Tylenol, DuoNebs, Xanax, Lovenox for DVT prophylaxis, [...] COVID-pneumonia. Patient was transferred to medical ICU [facility] for hypoxic respiratory failure likely due [...] move all extremities, (more content not included)... [facility] 08-03-2023 Note ------ Attestation signed by [...] -- 79 21 (!) 88 % 08/02/23 2311 -- -- -- -- -- 92 % [...] Bubble Study Result Date: 08/02/2023 1 1 [facility] Heart Station [address] [place] [address] [phone] (fax) Echocardiogram-[facility] Name: DANIEL LYNN Study Date: 08/02/2023 09:04 AM B/P: 121 mmHg/88 mmHg HR: 66 bpm Date of : 1975 Location: [facility] Height: 62 in. Age: 47 year(s) Patient [...] severely enlarged. Se (more content not included)... [facility] 08-02-2023 Note Patient: Daniel rizvi Procedure Information Date/Time: 08/02/23 1610 Procedure: Right heart cath Location: [facility] REGISTERED VASCULAR TECHNOLOGIST (RVT) 3 / [facility] (Cath) Providers: Chris Roger MD [...] with fellow and attending. Additional Equipment Requests [facility] 08-02-2023 Note Pharmacy Dosing Serv ice - Vancomycin Initial Consult Note Pharmacy has been consulted for the dosing and evaluation of Drug: Vancomycin Indication: pneumonia AUC 400-600 mg*hr/L and trough 10-20 mcg/mL Other Antimicrobial Regimens: cefepime 2g q8h Labs and Renal Function Total body weight: 122 kg (268 lb 8.3 oz) [place] body weight: 50.1 kg (110 lb 7.9 [...] Assessment / Comments: - 47yoF transferred to [facility] from [facility] and admitted to ICU 08/01 for acute hypoxic respiratory failure likely due to severe pulmonary hypertension and potential pneumonia. Viral panel at OSH positive for rhinovirus. Procal upon admission to [facility] 0.03. WBC increased from 9.5 to 12.17. [...] Nakia Ag, 08/02/23 Plan discussed with Betsy Eckert, Grabiel [facility] 08-02-2023 Note ------ Attestation signed by [...] % 122 kg (268 lb 8.3 oz) 11/16/23 0500 109/71 -- 59 14 90 % [...] ???F) 59 19 94 % -- 08/01/23 230 112/67 -- 69 20 (!) 87 % -- 08/01/232299 -- -- 69 21 (!) 86 % [...] Neva Portillo MD PGY-2 Internal Medicine Resident [facility] 08-02-2023 Note ------ Attestation signed by Lissette [...] mEq/L Final No results found for: PHVEN, ISH9YOG, PO2VEN, EKF0RRK, IONCALVEN CBC: Results from last 7 days [...] Infusions: As Need (more content not included)... 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 [employer] provides no warranty or guarantee of the accuracy or completeness of information in this document.
[2023-10-06 09:45] LABS: Basophils Percent Auto 0.6 % (0.2-2.0); Eosinophils Absolute Auto 0.2 10^3/uL (0.0-0.7); Eosinophils Percent Auto 2.2 % (0.9-7.0); Hematocrit 45.7 % (36.0-48.0); Hemoglobin 14.2 g/dL (12.0-16.0); Immature Granulocytes Abs Auto 0.03 10^3/uL (0.00-0.03); Immature Granulocytes Pct Auto 0.4 % (0.0-0.5); Lymphocytes Absolute Auto 1.4 10^3/uL (1.2-3.8); Lymphocytes Percent Auto 20.3 % (20.5-60.0); Mean Corpuscular HGB Conc 31.1 g/dL (29.9-35.2); Mean Corpuscular Hemoglobin 29.5 pg (26.7-34.0); Mean Platelet Volume 10.3 fL (9.5-13.5); Monocytes Absolute Auto 0.5 10^3/uL (0.3-0.8); Monocytes Percent Auto 7.5 % (1.7-12.0); Neutrophils Absolute Auto 4.8 10^3/uL (1.4-6.5); Platelet Count 281 10^3/uL (150-450); Red Blood Count 4.81 10^6/uL (4.20-5.40); Red Cell Distribution Width 13.4 % (11.0-15.0)
[2023-10-06 15:04] LABS: Anion Gap 16.6; BUN Creatinine Ratio 12.8; Calcium 8.8 mg/dL (8.5-10.1); Carbon Dioxide 24.3 mmol/L (21.0-32.0); Chloride 104 mmol/L (98-107); Estimated GFR (African America >60 (>=60); Estimated GFR (Non-African Ame >60 (>=60); Glucose 128 mg/dL (74-106); Potassium 3.9 mmol/L (3.5-5.1); Sodium 141 mmol/L (136-145)
== END 2023-10-06 09:02 | disposition home or self-care (01) ==
LOC: LAB 09:03
PROVIDERS: PCP Internal Medicine; Visit Provider Internal Medicine Interventional Cardiology
DX: Q21.10 Atrial septal defect, unspecified (principal)
CPT/HCPCS: 36415; 80048; 85025

== ENCOUNTER 2023-10-30 19:54 | Outpatient (OUT) | payer OTHER, SELFPAY ==
--- OUTSIDE RECORDS SUMMARY | 2023-10-30 19:56 | XMS_ITS | CCD ---
Author Name Unknown Address [address] [place] [address] Organization [facility] Care Team Providers Care Customer Order Clerk Name Role Phone BRANDIE PACHECO Referring Unavailable FAVIO SANTIAGO Primary Care Unavailable Favio Santiago Primary Care Provider [phone] DB HICKS Referring Unavailable ARAUJOVENTURA Referring Unavailable MOUKARBEL, CHRIS Referring Unavailable ALI, LISSETTE PEREZ Referring Unavailable ALI, LISSETTE CHAPAMAN Referring Unavailable AMERICOCARLEY Referring Unavailable MOUKARBEL, CHRIS Admitting Unavailable MOUKARBEL, CHRIS Attending Unavailable ALI, MCLAUGHLIN ANA Referring Unavailable MOUKARBEL, CHRIS Referring Unavailable ALI, MCLAUGHLIN ANA Referring Unavailable MOUKARBEL, CHRIS Referring Unavailable MOUKARBEL, CHRIS Attending Unavailable MOUKARBEL, CHRIS Referring Unavailable MOUKARBEL, CHRIS Referring Unavailable MOUKARBEL, CHRIS Referring Unavailable MOUKARBEL, CHRIS Attending Unavailable ALI, MCLAUGHLIN ANA Referring Unavailable MOUKARBEL, CHRIS Admitting Unavailable MOUKARBEL, CHRIS Attending Unavailable DAVEY, OLMAN Referring Unavailable ALI, MCLAUGHLIN ANA Admitting Unavailable ALI, MCLAUGHLIN ANA Consulting Unavailable AMERICO, CARLEY Attending Unavailable GILBERTKVNG Consulting Unavailable MOUKARBEL, CHRIS Referring Unavailable ALI, MCLAUGHLIN ANA Referring Unavailable Allergies Allergy Classification Reported Allergen(s) Allergy Type Date of Onset Reaction(s) Facility (1 source) Lisinopril; Translations: [LISINOPRIL] Drug Allergy 08-01-20 [facility] Repository (1 source) Penicillins; Translations: [PENICILLINS] Propensity to adverse reactions to drug (disorder) 08-01-20 [facility] Repository (1 source) Sulfamethoxazole / Trimethoprim; Translations: [SULFAMETHOXAZOLE-TR IMETHOPRIM] Drug Allergy 08-01-20 [facility] Repository Problems Active Problems Problem Classification Problem Date Documented Date Episodic/Chronic Cardiac and circulatory congenital anomalies (2 sources) Congenital malformation of heart, unspecified; Translations: [Congenital malformation of heart, unspecified] Onset: 09-26-2023 Chronic Cardiac and circulatory congenital anomalies (2 sources) Personal history of (corrected) congenital malformations of heart and circulatory system; Translations: [Personal history of (corrected) congenital malformations of heart and circulatory system] Onset: 10-09-2023 Episodic Other lower respiratory disease (2 sources) Hypoxemia; Translations: [Hypoxemia] Onset: 08-28-2023 Episodic Other lower respiratory disease (2 sources) Other forms of dyspnea; Translations: [Other forms of dyspnea] Onset: 08-01-2023 Episodic Pulmonary heart disease (4 sources) Other secondary pulmonary hypertension; Translations: [Pulmonary hypertension, unspecified] Onset: 08-01-2023 Chronic Unclassified (1 source) Atrial septal defect, unspecified; Translations: [Atrial septal defect, unspecified] Onset: 10-10-2023 Unclassified (1 source) Secundum atrial septal defect; Translations: [Secundum atrial septal defect] Onset: 08-29-2023 Past or Other Problems Problem Classification Problem Date Documented Da te Episodic/Chronic Unclassified (1 source) Atrial septal defect, unspecified; Translations: [Atrial septal defect, unspecified] Onset: 10-09-2023 Unclassified (1 source) Secundum atrial septal defect; Translations: [Secundum atrial septal defect] Onset: 08-29-2023 Results Test Name Value Interpretation Reference Range Facility Office Visiton 10-29-2023 Follow-up visit [id number] Shelly Lynn 1975 F Date Provider Department Center 10/29/2023 Dona-CHRIS ROGER LAXMI [facility] No family history on file Level of Service:87952 MS OFFICE/OUTPATIENT ESTABLISHED MOD MDM 30 MIN Normal [facility] 30on 10-10-2023 30 The patient is Moder ately Stable - Low risk of patient condition declining or worsening The patient's goals for the shift include comfort The clinical goals for the shift include hemodynamically stable Problem: Pain - Adult Goal: Verbalizes/displays adequate comfort level or baseline comfort level Outcome: Progressing Problem: Safety - Adult Goal: Free from fall injury Outcome: Progressing Flowsheets (Taken 10/10/2023 0800) Free from fall injury: Assess patient frequently for physical needs Identify cognitive and physical deficits and behaviors that affect risk of falls Redrock fall precautions as indicated by assessment Educate patient/family on patient safety, including physical limitations Problem: Discharge Planning Goal: Discharge to home or other facility with appropriate resources Outcome: Progressing Problem: Chronic Conditions and Co-morbidities Goal: Patient's chronic conditions and co-morbidity symptoms are monitored and maintained or improved Outcome: Progressing Normal [facility] 30 The patient is Moder ately Stable - Low risk of patient condition declining or worsening The patient's goals for the shift include comfort The clinical goals for the shift include vss Problem: Pain - Adult Goal: Verbalizes/displays adequate comfort level or baseline comfort level Outcome: Progressing Flowsheets (Taken 10/09/20232234) Verbalizes/displays adequate comfort level or baseline comfort level: Encourage patient to monitor pain and request assistance Assess pain using appropriate pain scale Administer analgesics based on type and severity of pain and evaluate response Implement non-pharmacological measures as appropriate and evaluate response Notify Licensed Independent Practitioner if interventions unsuccessful or patient reports new pain Consider cultural and social influences on pain and pain management Problem: Safety - Adult Goal: Free from fall injury Outcome: Progressing Flowsheets (Taken 10/09/20232234) Free from fall injury: Assess patient frequently for physical needs Identify cognitive and physical deficits and behaviors that affect risk of falls Redrock fall precautions as indicated by assessment Educate patient/family on patient safety, including physical limitations Instruct patient to call for assistance with activity based on assessment Modify environment to reduce risk of injury Consider OT/PT consult to assist with strengthening/mobility Problem: Discharge Planning Goal: Discharge to home or other facility with appropriate resources Outcome: Progressing Flowsheets (Taken 10/09/20232234) Discharge to home or other facility with appropriate resources: Arrange for needed discharge resources and transportation as appropriate Identify barriers to discharge with patient and caregiver Identify discharge learning needs (meds, wound care, [...] maintained or improved Outcome: Progressing Flowsheets (Taken 10/09/20232234) Care Plan - Patient's Chronic Conditions and [...] exacerbated and prevent overall improvement and discharge Normal [facility] DSon 10-10-2023 DS ----- ----- Attestation signed by Chris Roger MD at 10/10/2023 4:49 PM I discussed the patient on the same date of service as the Non-Physician Provider Jhoana Frost NP. 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 female with a large atrial septal defect and significant vvao-qe-vkezp shunting across it, enlarged right-sided chambers, and significant shortness of breath on exertion. She was evaluated previously by cardiac catheterization and transesophageal echocardiography. She underwent ASD closure procedure on 10/09/23 with success and was monitored in hospital overnight. She will need antiplatelet therapy for life with aspirin 81 mg and will need 6 months of both aspirin 81 mg and plavix 75 mg daily, unless otherwise directed by Dr. Roegr. Some oozing from left femoral access site reported from nursing overnight. Resolved with manual pressure. Access sites (left and right fem) examined on 10/10/23, soft without hematoma, pulses palpable, no oozing. Dressings removed, no ecchymosis, mild tenderness with palpation. Hemoglobin/hematocrit stable, 13.7 g/dL/41.2 %. Chest Xray and follow up echocardiogram performed 10/10. Echocardiogram reviewed by Dr. Roger, beauty operator, and without concerning findings. Patient cleared for discharge to home on 10/10/23. Impression/Findings: Successful ASD closure using a 34 mm Amplatzer septal occluder device. Plan: Aspirin 81 mg daily for life. Dual antiplatelet therapy with Aspirin 81 mg daily for life and Clopidogrel 75 mg daily for 6 months. Endocarditis prophylaxis for 6 months after ASD closure. The patient will be observed in-hospital overnight. The patient will get an EKG, chest x-ray (PA and lateral) and echocardiogram in the morning before discharge. Follow-up in cardiology clinic in [address] Dear Dr. Jack MD, [facility] is advised to follow up with you within 1-2 weeks. Follow-up with: Cardiology Scheduled appointments: Future Appointments Date Time Provider Department Center 10/29/2023 2:45 PM Chris Roger MD [facility] Your medication list START taking these medications Instructions Last Dose Given Next Dose Due clopidogrel 75 mg tablet Commonly known as: Plavix Take 1 tablet (75 mg) by mouth in the morning. CONTINUE taking these medications Instructions Last Dose Given Next Dose Due albuterol 90 mcg/actuation inhaler aspirin 81 mg EC tablet furosemide 40 mg tablet Commonly known as: Lasix TAKE 1 TABLET BY MOUTH EVERY DAY IN THE MORNING insulin detemir 100 unit/mL (3 mL) injection pen Commonly known as: Levemir Inject 20 Units under the skin at bedtime. macitentan 10 mg tablet Take 10 mg by mouth in the morning. sildenafil 20 mg tablet Commonly known as: Revatio Take 1 tablet (20 mg) by mouth in the morning, at noon, and at bedtime. Where to Get Your Medications These medications were sent to [facility] - [place], [place] - [address] [place] [address], [facility] [address] clopidogrel 75 mg tablet Daniel is allergic to bactrim [sulfamethoxazole-trimeth oprim], lisinopril, and penicillins. Disposition: Home or Self Care Discharge Condition: Stable Code Status: Full Code Diagnostic Results Hematology: Results from last 7 days Lab Units 10/10/23 1152 HEMOGLOBIN g/dL 13.7 HEMATOCRIT % 41.2 Chemistry: No lab exists for component: AFIO2 , APHT , APCOT , APOT , ATCO2 , CK , ALB , IBILI Test Results Pending At Discharge: Diet at the time of discharge: regular diet and cardiac diet Nutrition Screen Activity: For 1 week. No strenuous exercise or excessive stair climbing., Ok to shower this evening. Cleanse insertion site with plain soap and water. Avoid lotions or powders near or at site., Incision site should not be immersed in water for at least one week (ie- no bathing, no pools/tubs/hot tubs) Objective Blood pressure 116/61, pulse 69, temperature 36.4 ???C (97.5 ???F), temperature source Temporal, resp. rate 20, height 1.575 m (5' 2.01 ), weight 122 kg (268 lb 4.8 oz), SpO2 92 %. General: Alert and oriented x3. NAD. Obese. Cardiology: Normal rate, regular rhythm. Lungs: Clear to auscultation, no wheezes, rales or rhonchi, symmetric air entry. Abdomen: Soft, non tender, non distended. Extremities: Bilateral lower extremity edema, nonpitting. Bilateral fem procedure sites are c (more content not included)... Normal [facility] HEMOGLOBIN AND HEMATOCRIT, B Naomy 10-10-2023 Hematocrit (Bld) [Volume fraction] 41.2 % Normal 36.0-48.0 [facility] Comment on above: Performed By: #### L [id number] #### [facility] ([facility]) [address] [place] [address] Hemoglobin (Bld) [Mass/Vol] 13.7 g/dL Normal 12.0-15.0 [facility] Comment on above: Performed By: #### L [id number] #### [facility] ([facility]) [address] [place] [address] HPon 10-09-2023 History Of Present Illness Daniel Lynn is a 48 y.o. female is here today for her scheduled ASD closure. She was initially seen on on 08/01/2023 with acute respiratory failure and hypoxia in hospital. Investigation revealed evidence of ostium secundum ASD with significant fnxh-te-ithls shunting across it, severe pulmonary hypertension and [...] pulmonary AV malformation or other source of fqpv-al-datvb shunting. She was started on therapy with [...] drop saturation to the 70's with exertion. Past Medical History She has a past medical history of Asthma, COPD (chronic obstructive pulmonary disease) ([facility]), Diabetes mellitus ([facility]), Hypertension, MTHFR gene mutation, Obesity, and Sleep apnea. Surgical History She has no past surgical history on file. Social History She reports that she has been smoking cigarettes. She does not have any smokeless tobacco history on file. No history on file for alcohol use and drug use. Allergies Bactrim [sulfamethoxazole-trimeth oprim], Lisinopril, and Penicillins Medications Medications Prior to Admission Medication Sig Dispense Refill Last Dose aspirin 81 mg EC tablet Take 81 mg by mouth in the morning. 10/08/2023 furosemide (Lasix) 40 mg tablet TAKE 1 TABLET BY MOUTH EVERY DAY IN THE MORNING 90 tablet 3 10/08/2023 sildenafil (Revatio) 20 mg tablet Take 1 tablet (20 mg) by mouth in the morning, at noon, and at bedtime. 270 tablet 3 10/09/2023 albuterol 90 mcg/actuation inhaler Inhale 2 puffs every 6 (six) hours if needed for wheezing or shortness of breath. More than a month insulin detemir (Levemir) 100 unit/mL (3 mL) injection pen Inject 20 Units under the skin at bedtime. 6 mL 0 macitentan 10 mg tablet Take 10 mg by mouth in the morning. (Patient not taking: Reported on 08/28/2023) 30 tablet 11 Review of Systems Cardiovascular: Positive for dyspnea on exertion and leg swelling (L > R). All other systems reviewed and are negative. Physical Exam Constitutional: Appearance: She is well-developed. [...] Behavior: Behavior is cooperative. Judgment: Judgment normal. Last Recorded Vitals Blood pressure 146/64, pulse 86, resp. rate 20, weight 122 kg (268 lb 15.4 oz), SpO2 90 %. Relevant Results Imaging and other tests MATT 08/07/2023: Left Ventricle: The left ventricle is normal size. Global left ventricular systolic function is normal. Right Ventricle: The right ventricle is severely enlarged. Moderately reduced right ventricular systolic function. Left Atrium: Large secundum ASD with bidirectional flow. The largest septal defect measured 3.5cm. A balloon was inflated to se (more content not included)... Normal [facility] NURSNOTEon 10-09-2023 NURSNOTE Report given to Jo keita, RN from [facility] Any medications or safety alerts were reviewed. Any pending diagnostics and notifications were also reviewed, as well as any safety concerns or issues, abnormal labs, abnormal imagining, and abnormal assessment findings. Questions were answered. [facility] NURSNOTE Updated Dr Roger regarding IVF order. V.O. to hold IVF for now. [facility] Orders Onlyon 10-03-2023 Orders Only [id number] Shelly Lynn sti J 1975 F Date Provider Department Center 10/03/2023 LATASHA CRUZ [facility] No family history on file [facility] Prep for Procedureon 024 Prep for Procedure [id number] Shelly Lynn sti J 1975 F Date Provider Department Center 09/25/2023 Michaela-SHIRA MCDANIELS [facility] No family history on file [facility] Prep for Procedureon 023 Prep for Procedure [id number] Shelly Lynn sti J 1975 F Date Provider Department [place] 08/30/2023 CHRIS CANNON [facility] [place] [facility] No family history on file [facility] Office Visiton 08-28-2023 Follow-up visit [id number] Shelly Lynn sti J 1975 F Date Provider Department Center 08/28/2023 CHRIS CANNON [facility] No family history on file Level of Service:46160 MS OFFICE/OUTPATIENT ESTABLISHED HIGH MDM 40-54 MIN [facility] 30on 08-09-2023 30 Director Of Emergency Nursing received VM f or patient stating she needs assistance with the medications she was discharged with. Director Of Emergency Nursing reached out to patient who states that her INS will only cover 1/2 pill of Sildenafil per day. Patient continues to explain that she paid OOP for her first prescription of Sildenafil, but that she needs her Metal Handler to reach out to INS to discuss this and have it resolved, she reports that she plans to call Dr. Felder's office Sunday to have them assist. No other needs voiced at this time, filing writer urged patient to call OTM line next week if she has any further issues with her medications. [facility] 30 Problem: Pain - Adul t [...] and behaviors that affect risk of falls Redrock fall precautions as indicated by assessment Educate [...] mucous memb (more content not included)... Normal [facility] BASIC METABOLIC PANELon 11-2 Anion gap [Moles/Vol] 9 mmol/L Normal 7-20 [facility] Comment on above: Performed By: #### L [id number] #### [facility] ([facility]) [address] [place] [address] Calcium [Mass/Vol] 8.7 mg/dL Normal 8.6-10.3 [facility] Comment on above: Performed By: #### L [id number] #### [facility] ([facility]) [address] [place] [address] Chloride [Moles/Vol] 100 mmol/L Normal 98-107 [facility] Comment on above: Performed By: #### L [id number] #### [facility] ([facility]) [address] [place] [address] CO2 [Moles/Vol] 30 mmol/L Normal 21-31 [facility] Comment on above: Performed By: #### L [id number] #### [facility] ([facility]) [address] [place] [address] Creatinine [Mass/Vol] 0.42 mg/dL Low 0.60-1.20 [facility] Comment on above: Performed By: #### L [id number] #### [facility] ([facility]) [address] [place] [address] GLOMERULAR FILTRATION RATE ML/MIN/1.73 SQ M.PREDICTED 121.3 mL/min/1.73m*2 Normal >60.0 [facility] Comment on above: Result Comment: [facility]???s estimated glomerular filtration rate (eGFR) will [...] individuals. Performed By: #### L [id number] #### [facility] ([facility]) [address] [place] [address] Glucose [Mass/Vol] 146 mg/dL High 70-100 [facility] Comment on above: Performed By: #### L [id number] #### [facility] ([facility]) [address] [place] [address] Potassium [Moles/Vol] 3.7 mmol/L Normal 3.5-5.1 [facility] Comment on above: Performed By: #### L [id number] #### [facility] ([facility]) [address] [place] [address] Sodium [Moles/Vol] 135 mmol/L Low 136-145 [facility] Comment on above: Performed By: #### L [id number] #### [facility] ([facility]) [address] [place] [address] Urea nitrogen [Mass/Vol] 17 mg/dL Normal 7-25 [facility] Comment on above: Performed By: #### L [id number] #### [facility] ([facility]) [address] [place] [address] UREA NITROGEN/CREATININE (MASS RATIO) IN SER/PLAS 40.5 Normal [facility] Comment on above: Performed By: #### L [id number] #### [facility] ([facility]) [address] [place] [address] CBCon 08-09-2023 Erythrocyte distribution width (RBC) [Ratio] 13.1 % Normal 11.5-15.0 [facility] Comment on above: Performed By: #### L [id number] #### [facility] ([facility]) [address] [place] [address] ERYTHROCYTE MEAN CORPUSCULAR HEMOGLOBIN CONCENTRATION (G/DL) BY AUTOMATED 32.6 g/dL Normal 32.0-35.0 [facility] Comment on above: Performed By: #### L [id number] #### [facility] ([facility]) [address] [place] [address] Hematocrit (Bld) [Volume fraction] 43.5 % Normal 36.0-48.0 [facility] Comment on above: Performed By: #### L [id number] #### [facility] ([facility]) [address] [place] [address] Hemoglobin (Bld) [Mass/Vol] 14.2 g/dL Normal 12.0-15.0 [facility] Comment on above: Performed By: #### L [id number] #### [facility] ([facility]) [address] [place] [address] MCH (RBC) [Entitic mass] 30.3 pg Normal 27.0-33.0 [facility] Comment on above: Performed By: #### L [id number] #### [facility] ([facility]) [address] [place] [address] MCV (RBC) [Entitic vol] 92.9 fL Normal 82.0-98.0 [facility] Comment on above: Performed By: #### L [id number] #### [facility] ([facility]) [address] [place] [address] PLATELETS (10*3/UL) IN BLOOD AUTOMATED COUNT 178 10*3/uL Normal 150-400 [facility] Comment on above: Performed By: #### L [id number] #### [facility] ([facility]) [address] [place] [address] RBC (Bld) [#/Vol] 4.68 10*6/uL Normal 3.80-5.00 [facility] Comment on above: Performed By: #### L [id number] #### [facility] ([facility]) [address] [place] [address] WBC (Bld) [#/Vol] 7.40 10*3/uL Normal 4.00-10.60 [facility] Comment on above: Performed By: #### L [id number] #### [facility] ([facility]) [address] [place] [address] MAGNESIUMon 08-09-2023 Magnesium [Mass/Vol] 1.7 mg/dL Low 1.9-2.7 [facility] Comment on above: Performed By: #### L [id number] #### [facility] ([facility]) [address] [place] [address] NURSNOTEon 08-09-2023 NURSNOTE Discharge paperwork reviewed with pt; copy of paperwork given to pt. Reviewed new medications with pt. Pt expresses understanding of instructions. Pt currently waiting on family for ride home. Normal [facility] PHOSPHORUSon 08-09-2023 Magnesium [Mass/Vol] 4.3 mg/dL Normal 2.5-5.0 [facility] Comment on above: Performed By: #### L [id number] #### [facility] ([facility]) [address] [place] [address] POCT GLUCOSE METER UNSOLICIT ED RESULTSon 08-09-2023 Glucose [Mass/Vol] 151 mg/dL High 70-105 [facility] Comment on above: Order Comment: Waive d Testing in the ED is performed under the ED CLIA certificate #[id number]. Result Comment: scou [email or web address] Performed By: #### L [id number] #### [facility] ([facility]) [address] [place] [address] Glucose [Mass/Vol] 124 mg/dL High 70-105 [facility] Comment on above: Order Comment: Waive d Testing in the ED is performed under the ED CLIA certificate #[id number]. Result Comment: [email or web address] Performed By: #### L [id number] #### [facility] ([facility]) [address] [place] [address] 30on 08-08-2023 30 The patient is Moder [...] Outcome: Progressing Flowsheets (Taken 08/08/2023718 by Leti Jaeger, RN) Free from fall injury: Assess patient frequently for physical needs Consider OT/PT consult to assist with strengthening/mobility [employer] fall precautions as indicated by assessment Educate [...] symptoms for stability, deterioration, or improvement Normal [facility] 30 The patient is Moder ately [...] functionality and self care Outcome: Progressing Normal [facility] BASIC METABOLIC PANELon 11-2 Anion gap [Moles/Vol] 7 mmol/L Normal 7-20 [facility] Comment on above: Performed By: #### L [id number] #### [facility] ([facility]AK[facility]) [address] [place] [address] Calcium [Mass/Vol] 8.5 mg/dL Low 8.6-10.3 [facility] Comment on above: Performed By: #### L [id number] #### [facility] ([facility]) [address] [place] [address] Chloride [Moles/Vol] 102 mmol/L Normal 98-107 [facility] Comment on above: Performed By: #### L [id number] #### [facility] ([facility]) [address] [place] [address] CO2 [Moles/Vol] 30 mmol/L Normal 21-31 [facility] Comment on above: Performed By: #### L [id number] #### [facility] ([facility]) [address] [place] [address] Creatinine [Mass/Vol] 0.60 mg/dL Normal 0.60-1.20 [facility] Comment on above: Performed By: #### L [id number] #### [facility] ([facility]) [address] [place] [address] GLOMERULAR FILTRATION RATE ML/MIN/1.73 SQ M.PREDICTED 111.3 mL/min/1.73m*2 Normal >60.0 [facility] Comment on above: Result Comment: [facility]???s estimated glomerular filtration rate (eGFR) will [...] group of individuals. Performed By: #### L [id number] #### [facility] ([facility]) [address] [place] [address] Glucose [Mass/Vol] 145 mg/dL High 70-100 [facility] Comment on above: Performed By: #### L [id number] #### [facility] ([facility]) [address] [place] [address] Potassium [Moles/Vol] 3.9 mmol/L Normal 3.5-5.1 [facility] Comment on above: Performed By: #### L [id number] #### [facility] ([facility]) [address] [place] [address] Sodium [Moles/Vol] 135 mmol/L Low 136-145 [facility] Comment on above: Performed By: #### L [id number] #### [facility] ([facility]) [address] [place] [address] Urea nitrogen [Mass/Vol] 22 mg/dL Normal 7-25 [facility] Comment on above: Performed By: #### L [id number] #### [facility] ([facility]) [address] [place] [address] UREA NITROGEN/CREATININE (MASS RATIO) IN SER/PLAS 36.7 Normal [facility] Comment on above: Performed By: #### L [id number] #### [facility] ([facility]) [address] [place] [address] CBCon 08-08-2023 Erythrocyte distribution width (RBC) [Ratio] 13.0 % Normal 11.5-15.0 [facility] Comment on above: Performed By: #### L [id number] #### [facility] ([facility]) [address] [place] [address] ERYTHROCYTE MEAN CORPUSCULAR HEMOGLOBIN CONCENTRATION (G/DL) BY AUTOMATED 31.8 g/dL Low 32.0-35.0 [facility] Comment on above: Performed By: #### L [id number] #### [facility] ([facility]) [address] [place] [address] Hematocrit (Bld) [Volume fraction] 47.5 % Normal 36.0-48.0 [facility] Comment on above: Performed By: #### L [id number] #### [facility] ([facility]) [address] [place] [address] Hemoglobin (Bld) [Mass/Vol] 15.1 g/dL High 12.0-15.0 [facility] Comment on above: Performed By: #### L [id number] #### [facility] ([facility]) [address] [place] [address] MCH (RBC) [Entitic mass] 29.7 pg Normal 27.0-33.0 [facility] Comment on above: Performed By: #### L [id number] #### [facility] ([facility]) [address] [place] [address] MCV (RBC) [Entitic vol] 93.3 fL Normal 82.0-98.0 [facility] Comment on above: Performed By: #### L [id number] #### [facility] ([facility]) [address] [place] [address] PLATELETS (10*3/UL) IN BLOOD AUTOMATED COUNT 190 10*3/uL Normal 150-400 [facility] Comment on above: Performed By: #### L [id number] #### [facility] ([facility]) [address] [place] [address] RBC (Bld) [#/Vol] 5.09 10*6/uL High 3.80-5.00 [facility] Comment on above: Performed By: #### L [id number] #### [facility] ([facility]) [address] [place] [address] WBC (Bld) [#/Vol] 8.55 10*3/uL Normal 4.00-10.60 [facility] Comment on above: Performed By: #### L [id number] #### [facility] ([facility]) [address] [place] [address] CTA CHEST W AND/OR WO IV CON [...] reasonably achievable. Electronically signed: Karlos Gallardo. Normal [facility] MAGNESIUMon 08-08-2023 Magnesium [Mass/Vol] 1.8 mg/dL Low 1.9-2.7 [facility] Comment on above: Performed By: #### L [id number] #### [facility] ([facility]) [address] [place] [address] NURSNOTEon 08-08-2023 NURSNOTE Patient Name: Daniel Lynn [...] Pamela Babcock RN Rapid Response Team Nurse [phone] 08/08/2023 3:26 PM Normal [facility] PHOSPHORUSon 08-08-2023 Magnesium [Mass/Vol] 3.4 mg/dL Normal 2.5-5.0 [facility] Comment on above: Performed By: #### L [id number] ####[facility] ([facility])[address] [place] [address] POCT GLUCOSE METER UNSOLICIT ED RESULTSon 08-08-2023 Glucose [Mass/Vol] 331 mg/dL High 70-105 [facility] Comment on above: Order Comment: Waive d Testing in the ED is performed under the ED CLIA certificate #[id number]. Result Comment: [email or web address] Performed By: #### L [id number] #### [facility] ([facility]) [address] [place] [address] Glucose [Mass/Vol] 249 mg/dL High 70-105 [facility] Comment on above: Order Comment: Waive d Testing in the ED is performed under the ED CLIA certificate #[id number]. Result Comment: [email or web address] Performed By: #### L [id number] #### [facility] ([facility]) [address] [place] [address] Glucose [Mass/Vol] 277 mg/dL High 70-105 [facility] Comment on above: Order Comment: Waive d Testing in the ED is performed under the ED CLIA certificate #[id number]. Result Comment: [email or web address] Performed By: #### L [id number] #### [facility] (BEAKER) [address] [place] [address] Glucose [Mass/Vol] 198 mg/dL High 70-105 [facility] Comment on above: Order Comment: Waive d Testing in the ED is performed under the ED CLIA certificate #[id number]. Result Comment: [email or web address] Performed By: #### L [id number] #### [facility] ([facility]) [address] [facility] [place] [address] Glucose [Mass/Vol] 111 mg/dL High 70-105 [facility] Comment on above: Order Comment: Waive d Testing in the ED is performed under the ED CLIA certificate #[id number]. Result Comment: [email or web address] Performed By: #### L [id number] #### [facility] ([facility]) [address] [facility] [place] [address] 30on 08-07-2023 30 Problem: Discharge Planning Goal: [...] practices Implement preventative oral hygiene regimen Normal [facility] BASIC METABOLIC PANELon 11-2 Anion gap [Moles/Vol] 9 mmol/L Normal 7-20 [facility] Comment on above: Performed By: #### L [id number] #### [facility] ([facility]) [address] [place] [address] Calcium [Mass/Vol] 8.5 mg/dL Low 8.6-10.3 [facility] Comment on above: Performed By: #### L [id number] #### [facility] ([facility]) [address] [place] [address] Chloride [Moles/Vol] 98 mmol/L Normal 98-107 [facility] Comment on above: Performed By: #### L [id number] #### [facility] ([facility]) [address] [place] [address] CO2 [Moles/Vol] 31 mmol/L Normal 21-31 [facility] Comment on above: Performed By: #### L [id number] #### [facility] ([facility]) [address] [place] [address] Creatinine [Mass/Vol] 0.59 mg/dL Low 0.60-1.20 [facility] Comment on above: Performed By: #### L [id number] #### [facility] ([facility]) [address] [place] [address] GLOMERULAR FILTRATION RATE ML/MIN/1.73 SQ M.PREDICTED 111.8 mL/min/1.73m*2 Normal >60.0 [facility] Comment on above: Result Comment: [facility]???s estimated glomerular filtration rate (eGFR) will [...] individuals. Performed By: #### L [id number] #### [facility] ([facility]) [address] [place] [address] Glucose [Mass/Vol] 210 mg/dL High 70-100 [facility] Comment on above: Performed By: #### L [id number] #### [facility] ([facility]) [address] [place] [address] Potassium [Moles/Vol] 3.8 mmol/L Normal 3.5-5.1 [facility] Comment on above: Performed By: #### L [id number] #### [facility] ([facility]) [address] [place] [address] Sodium [Moles/Vol] 134 mmol/L Low 136-145 [facility] Comment on above: Performed By: #### L [id number] #### [facility] ([facility]) [address] [place] [address] Urea nitrogen [Mass/Vol] 25 mg/dL Normal 7-25 [facility] Comment on above: Performed By: #### L [id number] #### [facility] ([facility]) [address] [place] [address] UREA NITROGEN/CREATININE (MASS RATIO) IN SER/PLAS 42.4 Normal [facility] Comment on above: Performed By: #### L [id number] #### [facility] ([facility]) [address] [place] [address] CBCon 08-07-2023 Erythrocyte distribution width (RBC) [Ratio] 13.0 % Normal 11.5-15.0 [facility] Comment on above: Performed By: #### L [id number] #### [facility] ([facility]) [address] [place] [address] ERYTHROCYTE MEAN CORPUSCULAR HEMOGLOBIN CONCENTRATION (G/DL) BY AUTOMATED 32.6 g/dL Normal 32.0-35.0 [facility] Comment on above: Performed By: #### L [id number] #### [facility] ([facility]) [address] [place] [address] Hematocrit (Bld) [Volume fraction] 47.3 % Normal 36.0-48.0 [facility] Comment on above: Performed By: #### L [id number] #### [facility] ([facility]) [address] [place] [address] Hemoglobin (Bld) [Mass/Vol] 15.4 g/dL High 12.0-15.0 [facility] Comment on above: Performed By: #### L [id number] #### [facility] ([facility]) [address] [place] [address] MCH (RBC) [Entitic mass] 30.1 pg Normal 27.0-33.0 [facility] Comment on above: Performed By: #### L [id number] #### [facility] ([facility]) [address] [place] [address] MCV (RBC) [Entitic vol] 92.6 fL Normal 82.0-98.0 [facility] Comment on above: Performed By: #### L [id number] #### [facility] ([facility]) [address] [place] [address] PLATELETS (10*3/UL) IN BLOOD AUTOMATED COUNT 194 10*3/uL Normal 150-400 [facility] Comment on above: Performed By: #### L [id number] #### [facility] ([facility]) [address] [place] [address] RBC (Bld) [#/Vol] 5.11 10*6/uL High 3.80-5.00 [facility] Comment on above: Performed By: #### L [id number] #### [facility] ([facility]) [address] [place] [address] WBC (Bld) [#/Vol] 9.05 10*3/uL Normal 4.00-10.60 [facility] Comment on above: Performed By: #### L [id number] #### [facility] ([facility]) [address] [place] [address] MAGNESIUMon 08-07-2023 Magnesium [Mass/Vol] 1.7 mg/dL Low 1.9-2.7 [facility] Comment on above: Performed By: #### L [id number] #### [facility] ([facility]) [address] [place] [address] NURSNOTEon 08-07-2023 NURSNOTE Report given to NEDRA dhillon in CVU. All questions answered at this time- patient belongings given from filing writer to RN. Normal [facility] PHOSPHORUSon 08-07-2023 Magnesium [Mass/Vol] 3.5 mg/dL Normal 2.5-5.0 [facility] Comment on above: Performed By: #### L [id number] #### [facility] ([facility]) [address] [place] [address] POCT GLUCOSE METER UNSOLICIT ED RESULTSon 08-07-2023 Glucose [Mass/Vol] 233 mg/dL High 70-105 [facility] Comment on above: Order Comment: Waive d Testing in the ED is performed under the ED CLIA certificate #[id number]. Result Comment: [email or web address] Performed By: #### L [id number] #### [facility] ([facility]) [address] [place] [address] Glucose [Mass/Vol] 156 mg/dL High 70-105 [facility] Comment on above: Order Comment: Waive d Testing in the ED is performed under the ED CLIA certificate #[id number]. Result Comment: [email or web address] Performed By: #### L [id number] #### [facility] ([facility]) [address] [place] [address] Glucose [Mass/Vol] 305 mg/dL High 70-105 [facility] Comment on above: Order Comment: Waive d Testing in the ED is performed under the ED CLIA certificate #[id number]. Result Comment: [email or web address] Performed By: #### L [id number] #### [facility] (BEAKER) [address] [place] [address] 30on 08-06-2023 30 Problem: Pain - Adul [...] or improved Outcome: Progressing Flowsheets (Taken 08/06/2023 08) Care Plan - Patient's Chronic Conditions and Co-Morbidity Symptoms are Monitored and Maintained or Improved: Monitor and assess patient's chronic conditions and comorbid symptoms for stability, deterioration, or improvement Problem: Cardiovascular - Adult Goal: Maintains optimal cardiac output and hemodynamic stability Outcome: Progressing Goal: Absence of cardiac dysrhythmias or at baseline Outcome: Progressing Normal [facility] BASIC METABOLIC PANELon 112 Anion gap [Moles/Vol] 9 mmol/L Normal -20 [facility] Comment on above: Performed By: #### L [id number] #### [facility] (BEAKER) [address] [place] [address] Calcium [Mass/Vol] 8.4 mg/dL Low 8.6-10.3 [facility] Comment on above: Performed By: #### L [id number] #### [facility] (BEAKER) [address] [place] [address] Chloride [Moles/Vol] 100 mmol/L Normal 98-107 [facility] Comment on above: Performed By: #### L [id number] #### [facility] (BEAKER) [address] [place] [address] CO2 [Moles/Vol] 30 mmol/L Normal 21-31 [facility] Comment on above: Performed By: #### L [id number] #### [facility] ([facility]) [address] [place] [address] Creatinine [Mass/Vol] 0.61 mg/dL Normal 0.60-1.20 [facility] Comment on above: Performed By: #### L [id number] #### [facility] ([facility]) [address] [place] [address] GLOMERULAR FILTRATION RATE ML/MIN/1.73 SQ M.PREDICTED 110.9 mL/min/1.73m*2 Normal >60.0 [facility] Comment on above: Result Comment: [facility]???s estimated glomerular filtration rate (eGFR) will [...] individuals. Performed By: #### L [id number] #### [facility] ([facility]) [address] [place] [address] Glucose [Mass/Vol] 180 mg/dL High 70-100 [facility] Comment on above: Performed By: #### L [id number] #### [facility] ([facility]) [address] [place] [address] Potassium [Moles/Vol] 4.1 mmol/L Normal 3.5-5.1 [facility] Comment on above: Performed By: #### L [id number] #### [facility] ([facility]) [address] [facility] [place] [address] Sodium [Moles/Vol] 135 mmol/L Low 136-145 [facility] Comment on above: Performed By: #### L [id number] #### [facility] [address] [place] [address] Urea nitrogen [Mass/Vol] 20 mg/dL Normal 7-25 [facility] Comment on above: Performed By: #### L [id number] #### [facility] ([facility]) [address] [place] [address] UREA NITROGEN/CREATININE (MASS RATIO) IN SER/PLAS 32.8 Normal [facility] Comment on above: Performed By: #### L [id number] #### [facility] ([facility]) [address] [place] [address] CBCon 08-06-2023 Erythrocyte distribution width (RBC) [Ratio] 12.9 % Normal 11.5-15.0 [facility] Comment on above: Performed By: #### L [id number] #### [facility] ([facility]) [address] [place] [address] ERYTHROCYTE MEAN CORPUSCULAR HEMOGLOBIN CONCENTRATION (G/DL) BY AUTOMATED 32.4 g/dL Normal 32.0-35.0 [facility] Comment on above: Performed By: #### L [id number] #### [facility] ([facility]) [address] [place] [address] Hematocrit (Bld) [Volume fraction] 48.5 % High 36.0-48.0 [facility] Comment on above: Performed By: #### L [id number] #### [facility] ([facility]) [address] [place] [address] Hemoglobin (Bld) [Mass/Vol] 15.7 g/dL High 12.0-15.0 [facility] Comment on above: Performed By: #### L [id number] #### [facility] ([facility]) [address] [place] [address] MCH (RBC) [Entitic mass] 30.3 pg Normal 27.0-33.0 [facility] Comment on above: Performed By: #### L [id number] #### [facility] ([facility]) [address] [place] [address] MCV (RBC) [Entitic vol] 93.4 fL Normal 82.0-98.0 [facility] Comment on above: Performed By: #### L [id number] #### [facility] ([facility]) [address] [place] [address] PLATELETS (10*3/UL) IN BLOOD AUTOMATED COUNT 159 10*3/uL Normal 150-400 [facility] Comment on above: Performed By: #### L [id number] #### [facility] ([facility]) [address] [place] [address] RBC (Bld) [#/Vol] 5.19 10*6/uL High 3.80-5.00 [facility] Comment on above: Performed By: #### L [id number] #### [facility] ([facility]) [address] [place] [address] WBC (Bld) [#/Vol] 8.36 10*3/uL Normal 4.00-10.60 [facility] Comment on above: Performed By: #### L [id number] #### [facility] ([facility]) [address] [place] [address] MAGNESIUMon 08-06-2023 Magnesium [Mass/Vol] 1.8 mg/dL Low 1.9-2.7 [facility] Comment on above: Performed By: #### L [id number] #### [facility] ([facility]) [address] [place] [address] MRI CARDIAC MORPHOLOGY AND F UNCTION W [...] . . Electronically signed: Cade Farley. Normal [facility] PHOSPHORUSon 08-06-2023 Magnesium [Mass/Vol] 3.2 mg/dL Normal 2.5-5.0 [facility] Comment on above: Performed By: #### L [id number] #### [facility] ([facility]) [address] [place] [address] POCT GLUCOSE METER UNSOLICIT ED RESULTSon 08-06-2023 Glucose [Mass/Vol] 240 mg/dL High 70-105 [facility] Comment on above: Order Comment: Waive d Testing in the ED is performed under the ED CLIA certificate #[id number]. Result Comment: [email or web address] Performed By: #### L [id number] ####[facility] ([facility])[address] [place] [address] Glucose [Mass/Vol] 240 mg/dL High 70-105 [facility] Comment on above: Order Comment: Waive d Testing in the ED is performed under the ED CLIA certificate #[id number]. Result Comment: [email or web address] Performed By: #### L [id number] #### [facility] ([facility]ER) [address] [place] [address] Glucose [Mass/Vol] 252 mg/dL High 70-105 [facility] Comment on above: Order Comment: Waive d Testing in the ED is performed under the ED CLIA certificate #[id number]. Result Comment: [email or web address] Performed By: #### L [id number] #### [facility] ([facility]) [address] [place] [address] 30on 08-05-2023 30 The patient is Moder [...] Goal: Maintains hematologic stability Outcome: Progressing Normal [facility] 30 Problem: Pain - Adul t [...] goals for the shift include VSS Normal [facility] BASIC METABOLIC PANELon 11-1 Anion gap [Moles/Vol] 7 mmol/L Normal 7-20 [facility] Comment on above: Performed By: #### L [id number] #### [facility] (BEAKER) [address] [place] [address] Calcium [Mass/Vol] 8.4 mg/dL Low 8.6-10.3 [facility] Comment on above: Performed By: #### L [id number] #### [facility] (BEAKER) [address] [place] [address] Chloride [Moles/Vol] 99 mmol/L Normal 98-107 [facility] Comment on above: Performed By: #### L [id number] #### [facility] (BEAKER) [address] [place] [address] CO2 [Moles/Vol] 33 mmol/L High 21-31 [facility] Comment on above: Performed By: #### L [id number] #### [facility] (BEAKER) [address] [place] [address] Creatinine [Mass/Vol] 0.75 mg/dL Normal 0.60-1.20 [facility] Comment on above: Performed By: #### L [id number] #### [facility] ([facility]) [address] [place] [address] GLOMERULAR FILTRATION RATE ML/MIN/1.73 SQ M.PREDICTED 98.8 mL/min/1.73m*2 Normal >60.0 [facility] Comment on above: Result Comment: [facility]???s estimated glomerular filtration rate (eGFR) will [...] individuals. Performed By: #### L [id number] #### [facility] ([facility]) [address] [place] [address] Glucose [Mass/Vol] 206 mg/dL High 70-100 [facility] Comment on above: Performed By: #### L [id number] #### [facility] ([facility]) [address] [place] [address] Potassium [Moles/Vol] 3.7 mmol/L Normal 3.5-5.1 [facility] Comment on above: Performed By: #### L [id number] #### [facility] ([facility]) [address] [place] [address] Sodium [Moles/Vol] 135 mmol/L Low 136-145 [facility] Comment on above: Performed By: #### L [id number] #### [facility] ([facility]) [address] [place] [address] Urea nitrogen [Mass/Vol] 26 mg/dL High 7-25 [facility] Comment on above: Performed By: #### L [id number] #### [facility] ([facility]) [address] [facility] [place] [address] UREA NITROGEN/CREATININE (MASS RATIO) IN SER/PLAS 34.7 Normal [facility] Comment on above: Performed By: #### L [id number] #### [facility] ([facility]) [address] [place] [address] CBCon 08-05-2023 Erythrocyte distribution width (RBC) [Ratio] 13.0 % Normal 11.5-15.0 [facility] Comment on above: Performed By: #### L [id number] ####[facility] (BEAKER)[address] [place] [address] ERYTHROCYTE MEAN CORPUSCULAR HEMOGLOBIN CONCENTRATION (G/DL) BY AUTOMATED 32.7 g/dL Normal 32.0-35.0 [facility] Comment on above: Performed By: #### L [id number] ####[facility] ([facility])[address] [place] [address] Hematocrit (Bld) [Volume fraction] 49.5 % High 36.0-48.0 [facility] Comment on above: Performed By: #### L [id number] ####[facility] ([facility])[address] [place] [address] Hemoglobin (Bld) [Mass/Vol] 16.2 g/dL High 12.0-15.0 [facility] Comment on above: Performed By: #### L [id number] ####[facility] ([facility])[address] [place] [address] MCH (RBC) [Entitic mass] 30.6 pg Normal 27.0-33.0 [facility] Comment on above: Performed By: #### L [id number] ####[facility] ([facility])[address] [place] [address] MCV (RBC) [Entitic vol] 93.4 fL Normal 82.0-98.0 [facility] Comment on above: Performed By: #### L [id number] ####[facility] ([facility])[address] [place] [address] PLATELETS (10*3/UL) IN BLOOD AUTOMATED COUNT 190 10*3/uL Normal 150-400 [facility] Comment on above: Performed By: #### L [id number] ####[facility] ([facility])[address] [place] [address] RBC (Bld) [#/Vol] 5.30 10*6/uL High 3.80-5.00 [facility] Comment on above: Performed By: #### L [id number] ####[facility] ([facility])[address] [place] [address] WBC (Bld) [#/Vol] 9.57 10*3/uL Normal 4.00-10.60 [facility] Comment on above: Performed By: #### L [id number] ####[facility] ([facility])[address] [place] [address] MAGNESIUMon 08-05-2023 Magnesium [Mass/Vol] 1.9 mg/dL Normal 1.9-2.7 [facility] Comment on above: Performed By: #### L [id number] ####[facility] ([facility])[address] [place] [address] PHOSPHORUSon 08-05-2023 Magnesium [Mass/Vol] 3.1 mg/dL Normal 2.5-5.0 [facility] Comment on above: Performed By: #### L [id number] #### [facility] ([facility]) [address] [place] [address] POCT GLUCOSE METER UNSOLICIT ED RESULTSon 08-05-2023 Glucose [Mass/Vol] 272 mg/dL High 70-105 [facility] Comment on above: Order Comment: Waive d Testing in the ED is performed under the ED CLIA certificate #[id number]. Result Comment: [email or web address] Performed By: #### L [id number] #### [facility] ([facility]) [address] [place] [address] Glucose [Mass/Vol] 203 mg/dL High 70-105 [facility] Comment on above: Order Comment: Waive d Testing in the ED is performed under the ED CLIA certificate #[id number]. Result Comment: ana yanes Performed By: #### L [id number] ####[facility] ([facility])[address] [place] [address] Glucose [Mass/Vol] 227 mg/dL High 70-105 [facility] Comment on above: Order Comment: Waive d Testing in the ED is performed under the ED CLIA certificate #[id number]. Result Comment: [email or web address] ry Performed By: #### L [id number] #### [facility] (BEAKER) [address] [place] [address] Glucose [Mass/Vol] 200 mg/dL High 70-105 [facility] Comment on above: Order Comment: Waive d Testing in the ED is performed under the ED CLIA certificate #[id number]. Result Comment: ana yanes Performed By: #### L [id number] #### [facility] (BEAKER) [address] [facility] [place] [address] 30on 08-04-2023 30 The patient is Moder [...] Goal: Maintains hematologic stability Outcome: Progressing Normal [facility] 30 The patient is Moder ately [...] Goal: Maintains hematologic stability Outcome: Progressing Normal [facility] BASIC METABOLIC PANELon 11- Anion gap [Moles/Vol] 7 mmol/L Normal 7-20 [facility] Comment on above: Performed By: #### L [id number] ####[facility] ([facility])[address] [place] [address] Calcium [Mass/Vol] 8.4 mg/dL Low 8.6-10.3 [facility] Comment on above: Performed By: #### L [id number] ####[facility] ([facility])[address] [place] [address] Chloride [Moles/Vol] 99 mmol/L Normal 98-107 [facility] Comment on above: Performed By: #### L [id number] ####[facility] ([facility])[address] [place] [address] CO2 [Moles/Vol] 33 mmol/L High 21-31 [facility] Comment on above: Performed By: #### L [id number] ####[facility] ([facility])[address] [place] [address] Creatinine [Mass/Vol] 0.82 mg/dL Normal 0.60-1.20 [facility] Comment on above: Performed By: #### L [id number] ####[facility] ([facility])[address] [place] [address] GLOMERULAR FILTRATION RATE ML/MIN/1.73 SQ M.PREDICTED 88.7 mL/min/1.73m*2 Normal >60.0 [facility] Comment on above: Result Comment: [facility]???s estimated glomerular filtration rate (eGFR) will [...] of individuals. Performed By: #### L [id number] ####[facility] ([facility])[address] [place] [address] Glucose [Mass/Vol] 207 mg/dL High 70-100 [facility] Comment on above: Performed By: #### L [id number] ####[facility] ([facility])[address] [place] [address] Potassium [Moles/Vol] 3.8 mmol/L Normal 3.5-5.1 [facility] Comment on above: Performed By: #### L [id number] ####[facility] ([facility])[address] [place] [address] Sodium [Moles/Vol] 135 mmol/L Low 136-145 [facility] Comment on above: Performed By: #### L [id number] ####[facility] ([facility])[address] [place] [address] Urea nitrogen [Mass/Vol] 28 mg/dL High 7-25 [facility] Comment on above: Performed By: #### L [id number] ####[facility] ([facility])[address] [place] [address] UREA NITROGEN/CREATININE (MASS RATIO) IN SER/PLAS 34.1 Normal [facility] Comment on above: Performed By: #### L [id number] ####[facility] ([facility])[address] [place] [address] CBCon 08-04-2023 Erythrocyte distribution width (RBC) [Ratio] 13.0 % Normal 11.5-15.0 [facility] Comment on above: Performed By: #### L [id number] ####[facility] ([facility])[address] [place] [address] ERYTHROCYTE MEAN CORPUSCULAR HEMOGLOBIN CONCENTRATION (G/DL) BY AUTOMATED 32.5 g/dL Normal 32.0-35.0 [facility] Comment on above: Performed By: #### L [id number] ####[facility] ([facility])[address] [place] [address] Hematocrit (Bld) [Volume fraction] 49.9 % High 36.0-48.0 [facility] Comment on above: Performed By: #### L [id number] ####[facility] ([facility])[address] [place] [address] Hemoglobin (Bld) [Mass/Vol] 16.2 g/dL High 12.0-15.0 [facility] Comment on above: Performed By: #### L [id number] ####[facility] ([facility])[address] [place] [address] MCH (RBC) [Entitic mass] 30.5 pg Normal 27.0-33.0 [facility] Comment on above: Performed By: #### L [id number] ####[facility] ([facility])[address] [place] [address] MCV (RBC) [Entitic vol] 93.8 fL Normal 82.0-98.0 [facility] Comment on above: Performed By: #### L [id number] ####[facility] ([facility])[address] [place] [address] PLATELETS (10*3/UL) IN BLOOD AUTOMATED COUNT 197 10*3/uL Normal 150-400 [facility] Comment on above: Performed By: #### L [id number] ####[facility] ([facility])[address] [place] [address] RBC (Bld) [#/Vol] 5.32 10*6/uL High 3.80-5.00 [facility] Comment on above: Performed By: #### L [id number] ####[facility] ([facility])[address] [place] [address] WBC (Bld) [#/Vol] 10.19 10*3/uL Normal 4.00-10.60 [facility] Comment on above: Performed By: #### L [id number] ####[facility] ([facility])[address] [place] [address] CONSULTon 08-04-2023 CONSULT Inpatient consult to Cardiothoracic Surgery Consult performed by: Gian Cardona NP Consult ordered by: Lissetet Delgado MD Reason for consult: ASD History Of Present Illness Daniel Lynn is a 47 y.o. female with PMH of Asthma and Obesity who was initially evaluated in [place] on 07/25 with with 4 days of [...] the patient and they recommended transfer to [facility] for right heart catherization. She arrived to [facility] 08/01 where she was admitted [...] of Asthma, COPD (chronic obstructive pulmonary disease) ([facility]), Diabetes mellitus ([facility]), Hypertension, MTHFR gene mutation, and [...] Mental Status (more content not included)... Normal [facility] MAGNESIUMon 08-04-2023 Magnesium [Mass/Vol] 1.9 mg/dL Normal 1.9-2.7 [facility] Comment on above: Performed By: #### L [id number] #### [facility] ([facility]) [address] [place] [address] PHOSPHORUSon 08-04-2023 Magnesium [Mass/Vol] 2.8 mg/dL Normal 2.5-5.0 [facility] Comment on above: Performed By: #### L [id number] #### [facility] ([facility]) [address] [place] [address] POCT GLUCOSE METER UNSOLICIT ED RESULTSon 08-04-2023 Glucose [Mass/Vol] 310 mg/dL High 70-105 [facility] Comment on above: Order Comment: Waive d Testing in the ED is performed under the ED CLIA certificate #[id number]. Result Comment: nfre [email or web address] Performed By: #### L [id number] #### [facility] ([facility]) [address] [place] [address] Glucose [Mass/Vol] 248 mg/dL High 70-105 [facility] Comment on above: Order Comment: Waive d Testing in the ED is performed under the ED CLIA certificate #[id number]. Result Comment: [email or web address] Performed By: #### L [id number] #### [facility] ([facility]) [address] [place] [address] Glucose [Mass/Vol] 212 mg/dL High 70-105 [facility] Comment on above: Order Comment: Waive d Testing in the ED is performed under the ED CLIA certificate #[id number]. Result Comment: [email or web address] Performed By: #### L [id number] #### [facility] ([facility]) [address] [place] [address] Glucose [Mass/Vol] 185 mg/dL High 70-105 [facility] Comment on above: Order Comment: Waive d Testing in the ED is performed under the ED CLIA certificate #[id number]. Result Comment: [email or web address] Performed By: #### L [id number] ####[facility] ([facility])[address] [place] [address] BASIC METABOLIC PANELon 11-1 Anion gap [Moles/Vol] 10 mmol/L Normal 7-20 [facility] Comment on above: Performed By: #### L [id number] #### [facility] ([facility]) [address] [place] [address] Calcium [Mass/Vol] 8.7 mg/dL Normal 8.6-10.3 [facility] Comment on above: Performed By: #### L [id number] #### [facility] ([facility]) [address] [place] [address] Chloride [Moles/Vol] 95 mmol/L Low 98-107 [facility] Comment on above: Performed By: #### L [id number] #### [facility] ([facility]) [address] [place] [address] CO2 [Moles/Vol] 32 mmol/L High 21-31 [facility] Comment on above: Performed By: #### L [id number] #### [facility] (BEAKER) [address] [place] [address] Creatinine [Mass/Vol] 0.67 mg/dL Normal 0.60-1.20 [facility] Comment on above: Performed By: #### L [id number] #### [facility] ([facility]) [address] [place] [address] GLOMERULAR FILTRATION RATE ML/MIN/1.73 SQ M.PREDICTED 108.4 mL/min/1.73m*2 Normal >60.0 [facility] Comment on above: Result Comment: [facility]???s estimated glomerular filtration rate (eGFR) will [...] group of individuals. Performed By: #### L [id number] #### [facility] ([facility]) [address] [place] [address] Glucose [Mass/Vol] 277 mg/dL High 70-100 [facility] Comment on above: Performed By: #### L [id number] #### [facility] ([facility]) [address] [place] [address] Potassium [Moles/Vol] 3.6 mmol/L Normal 3.5-5.1 [facility] Comment on above: Performed By: #### L [id number] #### [facility] ([facility]) [address] [place] [address] Sodium [Moles/Vol] 133 mmol/L Low 136-145 [facility] Comment on above: Performed By: #### L [id number] #### [facility] ([facility]) [address] [place] [address] Urea nitrogen [Mass/Vol] 32 mg/dL High 7-25 [facility] Comment on above: Performed By: #### L [id number] #### [facility] ([facility]) [address] [place] [address] UREA NITROGEN/CREATININE (MASS RATIO) IN SER/PLAS 47.8 Normal [facility] Comment on above: Performed By: #### L [id number] #### [facility] ([facility]) [address] [place] [address] CBCon 08-03-2023 Erythrocyte distribution width (RBC) [Ratio] 13.0 % Normal 11.5-15.0 [facility] Comment on above: Performed By: #### L [id number] #### [facility] ([facility]) [address] [place] [address] ERYTHROCYTE MEAN CORPUSCULAR HEMOGLOBIN CONCENTRATION (G/DL) BY AUTOMATED 32.7 g/dL Normal 32.0-35.0 [facility] Comment on above: Performed By: #### L [id number] #### [facility] (BEAKER) [address] [place] [address] Hematocrit (Bld) [Volume fraction] 54.8 % High 36.0-48.0 [facility] Comment on above: Performed By: #### L [id number] #### [facility] (BEAKER) [address] [place] [address] Hemoglobin (Bld) [Mass/Vol] 17.9 g/dL High 12.0-15.0 [facility] Comment on above: Performed By: #### L [id number] #### [facility] (BEAKER) [address] [place] [address] MCH (RBC) [Entitic mass] 30.5 pg Normal 27.0-33.0 [facility] Comment on above: Performed By: #### L [id number] #### [facility] (BEAKER) [address] [place] [address] MCV (RBC) [Entitic vol] 93.5 fL Normal 82.0-98.0 [facility] Comment on above: Performed By: #### L [id number] #### [facility] (BEAKER) [address] [place] [address] PLATELETS (10*3/UL) IN BLOOD AUTOMATED COUNT 208 10*3/uL Normal 150-400 [facility] Comment on above: Performed By: #### L [id number] #### [facility] (BEAKER) [address] [place] [address] RBC (Bld) [#/Vol] 5.86 10*6/uL High 3.80-5.00 [facility] Comment on above: Performed By: #### L [id number] #### [facility] (BEAKER) [address] [place] [address] WBC (Bld) [#/Vol] 12.73 10*3/uL High 4.00-10.60 [facility] Comment on above: Performed By: #### L [id number] #### [facility] ([facility]) [address] [place] [address] MAGNESIUMon 08-03-2023 Magnesium [Mass/Vol] 1.9 mg/dL Normal 1.9-2.7 [facility] Comment on above: Performed By: #### L [id number] #### [facility] ([facility]) [address] [place] [address] PHOSPHORUSon 08-03-2023 Magnesium [Mass/Vol] 3.3 mg/dL Normal 2.5-5.0 [facility] Comment on above: Performed By: #### L [id number] #### [facility] ([facility]) [address] [place] [address] POCT GLUCOSE METER UNSOLICIT ED RESULTSon 08-03-2023 Glucose [Mass/Vol] 286 mg/dL High 70-105 [facility] Comment on above: Order Comment: Waive d Testing in the ED is performed under the ED CLIA certificate #[id number]. Result Comment: nfre [email or web address] Performed By: #### L [id number] #### [facility] ([facility]) [address] [place] [address] Glucose [Mass/Vol] 214 mg/dL High 70-105 [facility] Comment on above: Order Comment: Waive d Testing in the ED is performed under the ED CLIA certificate #[id number]. Result Comment: [email or web address] Performed By: #### L [id number] #### [facility] ([facility]) [address] [place] [address] Glucose [Mass/Vol] 239 mg/dL High 70-105 [facility] Comment on above: Order Comment: Waive d Testing in the ED is performed under the ED CLIA certificate #[id number]. Result Comment: [email or web address] Performed By: #### L [id number] #### [facility] ([facility]) [address] [place] [address] Glucose [Mass/Vol] 234 mg/dL High 70-105 [facility] Comment on above: Order Comment: Waive d Testing in the ED is performed under the ED CLIA certificate #[id number]. Result Comment: [email or web address] Performed By: #### L [id number] #### [facility] ([facility]) [address] [place] [address] TSH3 REFLEX TO FT4on 023 THYROTROPIN (MIU/L) IN SER/PLAS BY DETECTION LIMIT <= 0.05 MIU/L 0.56 mIU/L Normal 0.34-5.60 [facility] Comment on above: Performed By: #### L [id number] #### [facility] ([facility]) [address] [place] [address] ANAon 08-02-2023 PHANI TITER <1:40 Normal <=1:40 [facility] Comment on above: Result Comment: Test performed using SERGE IFA PHANI Hep-2 Test, a pre-standardized assay designed for the qualitative and semi-quantitative detection of antinuclear antibodies. Performed By: #### L [id number] #### [facility] ([facility]) [address] [place] [address] ANTI-CENTROMERE ANTIBODYon 10-02-2022 ANTI-CENTROMERE ANTIBODY Negative Normal Negative [facility] Comment on above: Performed By: #### L [id number] #### [facility] ([facility]) [address] [place] [address] ANTI-DNASE B ANTIBODYon 07-18 DNASE B ANTIBODY <86 Normal <=259 [facility] Comment on above: Result Comment: REFE [...] of a recent Streptococcus infection. Performed By: [facility] [address] [place] [id number] Pomologist: Saturnino Rai MD, PhD CLIA Number: [id number] Performed By: #### L [id number] #### [facility] ([facility]) [address] [place] [address] ANTI-RITU 1 ANTIBODY, IGGon ANTI RITU-1 IGG 1 AU/mL Normal 0-40 [facility] Comment on above: Result Comment: INTE RPRETIVE INFORMATION: Ritu-1 Antibody, IgG 29 AU/mL or less.........Negative 30-40 AU/mL..............Equivocal 41 AU/mL or greater......Positive Presence of Ritu-1 (antihistidyl transfer RNA [t-RNA] synthetase) antibody is associated with polymyositis and may also be seen in patients with dermatomyositis. Ritu-1 antibody is associated with pulmonary involvement (interstitial lung disease), Raynaud phenomenon, arthritis, and furniture mechanic's hands (implicated in antisynthetase syndrome). Performed By: [facility] [address] [place] [id number] Pomologist: Saturnino Rai MD, PhD CLIA Number: [id number] Performed By: #### L [id number] #### [facility] ([facility]) [address] [place] [address] ARTERIAL BLOOD GAS WITH IONI ZED CALCIUMon 08-02-2023 Base excess Calc (Bld) [Moles/Vol] 13.8 mmol/L High -2.0-3.0 [facility] Comment on above: Order Comment: 04/26 Performed By: #### L [id number] #### [facility] ([facility]) [address] [place] [address] CALCIUM IONIZED (MMOL/L) IN BLOOD 1.08 mmol/L Low 1.15-1.33 [facility] Comment on above: Order Comment: 04/26 Performed By: #### L [id number] #### [facility] ([facility]) [address] [place] [address] CO2 (Bld) [Partial pressure] 60 mm[Hg] Critically high 35-48 [facility] Comment on above: Order Comment: 04/26 Performed By: #### L [id number] #### [facility] ([facility]) [address] [place] [address] FIO2 90 % Normal [facility] Comment on above: Order Comment: 04/26 Performed By: #### L [id number] #### [facility] ([facility]) [address] [place] [address] HCO3 (Bld) [Moles/Vol] 40.8 mmol/L High 21.0-28.0 [facility] Comment on above: Order Comment: 04/26 Performed By: #### L [id number] #### [facility] ([facility]) [address] [place] [address] Oxygen (Bld) [Partial pressure] 89 mm[Hg] Normal 83-100 [facility] Comment on above: Order Comment: 04/26 Performed By: #### L [id number] #### [facility] ([facility]) [address] [place] [address] OXYGEN SATURATION (%) IN ARTERIAL BLOOD 97.8 % Normal 94.0-98.0 [facility] Comment on above: Order Comment: 04/26 Performed By: #### L [id number] #### [facility] ([facility]) [address] [place] [address] pH (Bld) 7.44 [pH] Normal 7.35-7.45 [facility] Comment on above: Order Comment: 04/26 Performed By: #### L [id number] #### [facility] ([facility]) [address] [place] [address] SOURCE OF OXYGEN Bi-PAP Normal [facility] Comment on above: Order Comment: 10 Performed By: #### L [id number] #### [facility] ([facility]) [address] [place] [address] B-TYPE NATRIURETIC PEPTIDEon 08-02-2023 Natriuretic peptide B (Bld) [Mass/Vol] 37 pg/mL Normal 0-100 [facility] Comment on above: Performed By: #### L [id number] #### [facility] ([facility]) [address] [place] [address] BASIC METABOLIC PANELon 07-18 Anion gap [Moles/Vol] 10 mmol/L Normal 7-20 [facility] Comment on above: Performed By: #### L [id number] #### [facility] ([facility]) [address] [place] [address] Calcium [Mass/Vol] 8.8 mg/dL Normal 8.6-10.3 [facility] Comment on above: Performed By: #### L [id number] #### [facility] ([facility]) [address] [place] [address] Chloride [Moles/Vol] 91 mmol/L Low 98-107 [facility] Comment on above: Performed By: #### L [id number] #### [facility] ([facility]) [address] [place] [address] CO2 [Moles/Vol] 39 mmol/L High 21-31 [facility] Comment on above: Performed By: #### L [id number] #### [facility] ([facility]) [address] [place] [address] Creatinine [Mass/Vol] 0.70 mg/dL Normal 0.60-1.20 [facility] Comment on above: Performed By: #### L [id number] #### [facility] ([facility]) [address] [place] [address] GLOMERULAR FILTRATION RATE ML/MIN/1.73 SQ M.PREDICTED 107.3 mL/min/1.73m*2 Normal >60.0 [facility] Comment on above: Result Comment: [facility]???s estimated glomerular filtration rate (eGFR) will [...] individuals. Performed By: #### L [id number] #### [facility] ([facility]) [address] [place] [address] Glucose [Mass/Vol] 231 mg/dL High 70-100 [facility] Comment on above: Performed By: #### L [id number] #### [facility] ([facility]) [address] [place] [address] Potassium [Moles/Vol] 3.7 mmol/L Normal 3.5-5.1 [facility] Comment on above: Performed By: #### L [id number] #### [facility] ([facility]) [address] [place] [address] Sodium [Moles/Vol] 136 mmol/L Normal 136-145 [facility] Comment on above: Performed By: #### L [id number] #### [facility] ([facility]) [address] [place] [address] Urea nitrogen [Mass/Vol] 29 mg/dL High 7-25 [facility] Comment on above: Performed By: #### L [id number] #### [facility] ([facility]) [address] [place] [address] UREA NITROGEN/CREATININE (MASS RATIO) IN SER/PLAS 41.4 Normal [facility] Comment on above: Performed By: #### L [id number] #### [facility] ([facility]) [address] [place] [address] CBCon 08-02-2023 Erythrocyte distribution width (RBC) [Ratio] 13.2 % Normal 11.5-15.0 [facility] Comment on above: Performed By: #### L [id number] #### [facility] ([facility]) [address] [place] [address] ERYTHROCYTE MEAN CORPUSCULAR HEMOGLOBIN CONCENTRATION (G/DL) BY AUTOMATED 32.4 g/dL Normal 32.0-35.0 [facility] Comment on above: Performed By: #### L [id number] #### [facility] ([facility]) [address] [place] [address] Hematocrit (Bld) [Volume fraction] 56.2 % High 36.0-48.0 [facility] Comment on above: Performed By: #### L [id number] #### [facility] ([facility]) [address] [place] [address] Hemoglobin (Bld) [Mass/Vol] 18.2 g/dL High 12.0-15.0 [facility] Comment on above: Performed By: #### L [id number] #### [facility] ([facility]) [address] [place] [address] MCH (RBC) [Entitic mass] 30.6 pg Normal 27.0-33.0 [facility] Comment on above: Performed By: #### L [id number] #### [facility] ([facility]) [address] [place] [address] MCV (RBC) [Entitic vol] 94.5 fL Normal 82.0-98.0 [facility] Comment on above: Performed By: #### L [id number] #### [facility] ([facility]) [address] [place] [address] PLATELETS (10*3/UL) IN BLOOD AUTOMATED COUNT 237 10*3/uL Normal 150-400 [facility] Comment on above: Performed By: #### L [id number] #### [facility] ([facility]) [address] [place] [address] RBC (Bld) [#/Vol] 5.95 10*6/uL High 3.80-5.00 [facility] Comment on above: Performed By: #### L [id number] #### [facility] ([facility]) [address] [place] [address] WBC (Bld) [#/Vol] 12.17 10*3/uL High 4.00-10.60 [facility] Comment on above: Performed By: #### L [id number] #### [facility] ([facility]) [address] [place] [address] CT CHEST HIGH RESOLUTION WO CONTRASTon 08-02-2023 [...] reasonably achievable. Electronically signed: Lonnie Tolentino. Normal [facility] CTA HEART STRUCTURE MORPHOLO GY W [...] the actual shunt. No pericardial effusion Large bjeow-ma-ukac images obtained but there is no evidence [...] consistent with atelectasis Electronically signed: Cade Farley. [facility] 08-02-2023 H&P reviewed. The pa tient was examined and there are no changes to the H&P. Normal [facility] LEGIONELLA ANTIGEN, URINEon 08-02-2023 LEGIONELLA AG, UR Negative Normal [facility] Comment on above: Result Comment: L. p neumophila serogroup 1 antigen not detected. A negative result does not exclude infection with Leginella pnemophila serogroup 1 nor does it rule out other microbial-caused respiratory infections of disease caused by other serogroups of Legionella pneumophila. Test Performed by [facility] [place] [address] - Released 08/02/2023 19:58 Performed By: #### L [id number] #### [facility] ([facility]) [address] [place] [address] MAGNESIUMon 08-02-2023 Magnesium [Mass/Vol] 2.0 mg/dL Normal 1.9-2.7 [facility] Comment on above: Performed By: #### L [id number] #### [facility] ([facility]) [address] [place] [address] MRSA/MSSA DNA NASALon 2022 MRSA DNA Negative Normal Negative [facility] Comment on above: Order Comment: Testi [...] preclude nasal colonization. Performed By: #### L [id number] #### [facility] ([facility]) [address] [place] [address] MSSA DNA Negative Normal Negative [facility] Comment on above: Order Comment: Testi [...] preclude nasal colonization. Performed By: #### L [id number] #### [facility] ([facility]) [address] [place] [address] NM LUNG PERFUSION PARTICULAT Cruzito 08-02-2023 NM [...] pulmonary thromboembolism. Electronically signed: Lonnie Tolentino. Normal [facility] PHOSPHORUSon 08-02-2023 Magnesium [Mass/Vol] 4.5 mg/dL Normal 2.5-5.0 [facility] Comment on above: Performed By: #### L [id number] #### [facility] ([facility]) [address] [place] [address] POCT GLUCOSE METER UNSOLICIT ED RESULTSon 08-02-2023 Glucose [Mass/Vol] 337 mg/dL High 70-105 [facility] Comment on above: Order Comment: Waive d Testing in the ED is performed under the ED CLIA certificate #[id number]. Result Comment: ebol tz Performed By: #### L [id number] #### [facility] ([facility] [employer]) [address] [place] [address] Glucose [Mass/Vol] 164 mg/dL High 70-105 [facility] Comment on above: Order Comment: Waive d Testing in the ED is performed under the ED CLIA certificate #[id number]. Result Comment: [email or web address] iga Performed By: #### L [id number] #### [facility] ([facility] [employer] [facility]) [address] [place] [address] Glucose [Mass/Vol] 218 mg/dL High 70-105 [facility] Comment on above: Order Comment: Waive d Testing in the ED is performed under the ED CLIA certificate #[id number]. Result Comment: leroy hammond Performed By: #### L [id number] #### [facility] ([facility]) [address] [place] [address] PROCALCITONIN TESTon 023 PROCALCITONIN IN BLOOD 0.04 ng/mL Normal 0.00-0.10 [facility] Comment on above: Result Comment: Susp [...] and initial PCT<0.5ng/mL Performed By: #### L [id number] ####[facility] ([facility])[address] [place] [address] RHEUMATOID FACTORon 08-02-20 23 Rheumatoid factor Qn [IU]/mL Normal 0-20 [facility] Comment on above: Performed By: #### L [id number] #### [facility] ([facility]) [address] [place] [address] RNA POLYMERASE III ANTIBODY IGGon 08-02-2023 RNA POLYMERASE III ANTIBODY, IGG 11 Units Normal 0-19 [facility] Comment on above: Result Comment: INTE [...] antibodies associated with SSc, including centromere, Scl-70, U3-LENS POLISHER HAND, PM/Scl, or Th/To. Performed By: [facility] [address] [place] [address] Pomologist: Saturnino Rai MD, PhD CLIA Number: [id number] Performed By: #### L [id number] ####[facility] [place] [address] SJOGRENS SYNDROME ANTIBODIES A AND Bon 08-02-2023 IVAN TO SSA (RO) ANTIBODY Negative Normal Negative [facility] Comment on above: Performed By: #### L [id number] #### [facility] ([facility]) [address] [place] [address] IVAN TO SSB (LA) ANTIBODY Negative Normal Negative [facility] Comment on above: Performed By: #### L [id number] #### [facility] ([facility]) [address] [place] [address] STREP PNEUMONIAE ANTIGEN, UR INEon 08-02-2023 STREPTOCOCCUS PNEUMONIAE AG PRESENCE IN URINE Negative Normal Negative [facility] Comment on above: Performed By: #### L [id number] #### [facility] ([facility]) [address] [place] [address] TROPONIN Ion 08-02-2023 Troponin I.cardiac [Mass/Vol] 0.03 ng/mL Normal 0.00-0.04 [facility] Comment on above: Performed By: #### L [id number] ####[facility] ([facility])[address] [place] [address] 30on 08-01-2023 30 The patient is Moder [...] ensuring proper positioning, support, and education. Normal [facility] APTTon 08-01-2023 ACTIVATED PARTIAL THROMBOPLASTIN TIME IN PPP BY COAGULATION ASSAY 24.1 Seconds Low 25.0-35.0 [facility] Comment on above: Result Comment: Clin ical significance of the APTT is questionable in the presence of heparin. Performed By: #### L [id number] #### [facility] ([facility]) [address] [place] [address] ARTERIAL BLOOD GAS WITH CO-O XIMETRYon 08-01-2023 Base excess Calc (Bld) [Moles/Vol] 20.9 mmol/L High -2.0-3.0 [facility] Comment on above: Order Comment: bipap Performed By: #### L [id number] #### [facility] ([facility]) [address] [place] [address] CARBOXYHEMOGLOBIN/H EMOGLOBIN TOTAL % IN BLOOD 1.5 % Normal 0.0-3.0 [facility] Comment on above: Order Comment: bipap Performed By: #### L [id number] #### [facility] ([facility]) [address] [place] [address] CO2 (Bld) [Partial pressure] 58 mm[Hg] Critically high 35-48 [facility] Comment on above: Order Comment: bipap Performed By: #### L [id number] #### [facility] ([facility]) [address] [place] [address] DEOXYGENATED HEMOGLOBIN IN BLOOD 5.4 % High 1-5 [facility] Comment on above: Order Comment: bipap Performed By: #### L [id number] #### [facility] ([facility]) [address] [place] [address] FIO2 40 % Normal [facility] Comment on above: Order Comment: bipap Performed By: #### L [id number] #### [facility] ([facility]) [address] [place] [address] HCO3 (Bld) [Moles/Vol] 48.5 mmol/L High 21.0-28.0 [facility] Comment on above: Order Comment: bipap Performed By: #### L [id number] #### [facility] ([facility]) [address] [place] [address] Hemoglobin (Bld) [Mass/Vol] 18.3 g/dL Critically high 11.7-17.4 [facility] Comment on above: Order Comment: bipap Performed By: #### L [id number] #### [facility] ([facility]) [address] [place] [address] METHEMOGLOBIN/100 IN BLOOD 0.8 % Normal 0.0-1.5 [facility] Comment on above: Order Comment: bipap Performed By: #### L [id number] #### [facility] ([facility]) [address] [place] [address] Oxygen (Bld) [Partial pressure] 66 mm[Hg] Low 83-100 [facility] Comment on above: Order Comment: bipap Performed By: #### L [id number] #### [facility] ([facility]) [address] [place] [address] OXYGEN SATURATION (%) IN ARTERIAL BLOOD 94.5 % Normal 94.0-98.0 [facility] Comment on above: Order Comment: bipap Performed By: #### L [id number] #### [facility] ([facility]) [address] [place] [address] OXYGENATED HEMOGLOBIN IN BLOOD 92.3 % Normal 90.0-95.0 [facility] Comment on above: Order Comment: bipap Performed By: #### L [id number] #### [facility] ([facility]) [address] [place] [address] pH (Bld) 7.53 [pH] High 7.35-7.45 [facility] Comment on above: Order Comment: bipap Performed By: #### L [id number] #### [facility] ([facility]) [address] [place] [address] RESPIRATORY RATE 14 Normal [facility] Comment on above: Order Comment: bipap Performed By: #### L [id number] #### [facility] ([facility]) [address] [place] [address] SOURCE OF OXYGEN Bi-PAP Normal [facility] Comment on above: Order Comment: bipap Performed By: #### L [id number] #### [facility] ([facility]) [address] [place] [address] B-TYPE NATRIURETIC PEPTIDEon 08-01-2023 Natriuretic peptide B (Bld) [Mass/Vol] 145 pg/mL High 0-100 [facility] Comment on above: Performed By: #### L [id number] #### [facility] ([facility]) [address] [place] [address] BLOOD CULTUREon 08-01-2023 Bacteria identified Cx Nom (Bld) No growth at 5 days Normal [facility] Comment on above: Performed By: #### L [id number] #### [facility] ([facility]) [address] [place] [address] CBC WITH AUTO DIFFERENTIALon 08-01-2023 Basophils (Bld) [#/Vol] 0.02 10*3/uL Normal 0.00-0.20 [facility] Comment on above: Performed By: #### L [id number] #### [facility] ([facility]) [address] [place] [address] Basophils/100 WBC (Bld) 0.2 % Normal 0.0-1.0 [facility] Comment on above: Performed By: #### L [id number] #### [facility] ([facility]AKER) [address] [place] [address] Eosinophils (Bld) [#/Vol] 0.01 10*3/uL Normal 0.00-0.50 [facility] Comment on above: Performed By: #### L [id number] #### [facility] ([facility]) [address] [place] [address] Eosinophils/100 WBC (Bld) 0.1 % Normal 0.0-6.0 [facility] Comment on above: Performed By: #### L [id number] #### [facility] ([facility]) [address] [place] [address] Erythrocyte distribution width (RBC) [Ratio] 13.2 % Normal 11.5-15.0 [facility] Comment on above: Performed By: #### L [id number] #### [facility] ([facility]ER) [address] [place] [address] ERYTHROCYTE MEAN CORPUSCULAR HEMOGLOBIN CONCENTRATION (G/DL) BY AUTOMATED 33.1 g/dL Normal 32.0-35.0 [facility] Comment on above: Performed By: #### L [id number] #### [facility] ([facility]) [address] [place] [address] Hematocrit (Bld) [Volume fraction] 54.1 % High 36.0-48.0 [facility] Comment on above: Performed By: #### L [id number] #### [facility] ([facility]) [address] [place] [address] Hemoglobin (Bld) [Mass/Vol] 17.9 g/dL High 12.0-15.0 [facility] Comment on above: Performed By: #### L [id number] #### [facility] ([facility]) [address] [place] [address] Immature granulocytes (Bld) [#/Vol] 0.10 10*3/uL Normal 0.00-0.20 [facility] Comment on above: Performed By: #### L [id number] #### [facility] ([facility] [address] [place] [address] Immature granulocytes/100 WBC (Bld) 1.1 % High 0.0-1.0 [facility] Comment on above: Performed By: #### L [id number] #### [facility] ([facility]) [address] [place] [address] Lymphocytes (Bld) [#/Vol] 0.40 10*3/uL Low 1.20-4.00 [facility] Comment on above: Performed By: #### L [id number] #### [facility] ([facility]) [address] [place] [address] Lymphocytes/100 WBC (Bld) 4.2 % Low 20.0-45.0 [facility] Comment on above: Performed By: #### L [id number] #### [facility] ([facility]) [address] [place] [address] MCH (RBC) [Entitic mass] 30.6 pg Normal 27.0-33.0 [facility] Comment on above: Performed By: #### L [id number] #### [facility] ([facility]) [address] [place] [address] MCV (RBC) [Entitic vol] 92.5 fL Normal 82.0-98.0 [facility] Comment on above: Performed By: #### L [id number] #### [facility] ([facility]) [address] [place] [address] Monocytes (Bld) [#/Vol] 0.50 10*3/uL Normal 0.10-1.00 [facility] Comment on above: Performed By: #### L [id number] #### [facility] ([facility]) [address] [place] [address] Monocytes/100 WBC (Bld) 5.3 % Normal 5.0-12.0 [facility] Comment on above: Performed By: #### L [id number] #### [facility] ([facility]) [address] [place] [address] Neutrophils (Bld) [#/Vol] 8.47 10*3/uL High 1.60-7.60 [facility] Comment on above: Performed By: #### L [id number] #### [facility] ([facility]) [address] [address] Neutrophils/100 WBC (Bld) 89.1 % High 40.0-72.0 [facility] Comment on above: Performed By: #### L [id number] #### [facility] ([facility]) [address] [place] [address] NRBC (PER 100 WBCS) BY AUTOMATED COUNT 0.0 % Normal 0 [facility] Comment on above: Performed By: #### L [id number] #### [facility] ([facility]) [address] [place] [address] PLATELETS (10*3/UL) IN BLOOD AUTOMATED COUNT 265 10*3/uL Normal 150-400 [facility] Comment on above: Performed By: #### L [id number] #### [facility] ([facility]) [address] [place] [address] RBC (Bld) [#/Vol] 5.85 10*6/uL High 3.80-5.00 [facility] Comment on above: Performed By: #### L [id number] #### [facility] ([facility]) [address] [place] [address] WBC (Bld) [#/Vol] 9.50 10*3/uL Normal 4.00-10.60 [facility] Comment on above: Performed By: #### L [id number] #### [facility] ([facility]) [address] [place] [address] COMPREHENSIVE METABOLIC PANE Matty 11-15-2023 Albumin [Mass/Vol] 3.5 g/dL Normal 3.5-5.7 [facility] Comment on above: Performed By: #### L [id number] #### [facility] ([facility]) [address] [place] [address] ALP [Catalytic activity/Vol] 54 U/L Normal 34-104 [facility] Comment on above: Performed By: #### L [id number] #### [facility] ([facility]) [address] [place] [address] ALT [Catalytic activity/Vol] 10 U/L Normal 7-52 [facility] Comment on above: Performed By: #### L [id number] #### [facility] ([facility]) [address] [place] [address] Anion gap [Moles/Vol] 10 mmol/L Normal 7-20 [facility] Comment on above: Performed By: #### L [id number] #### [facility] ([facility]) [address] [place] [address] AST [Catalytic activity/Vol] 8 U/L Low 13-39 [facility] Comment on above: Performed By: #### L [id number] #### [facility] ([facility]) [address] [place] [address] Bilirubin [Mass/Vol] 0.9 mg/dL Normal 0.3-1.0 [facility] Comment on above: Performed By: #### L [id number] #### [facility] ([facility]) [address] [place] [address] Calcium [Mass/Vol] 9.0 mg/dL Normal 8.6-10.3 [facility] Comment on above: Performed By: #### L [id number] #### [facility] ([facility]) [address] [place] [address] Chloride [Moles/Vol] 90 mmol/L Low 98-107 [facility] Comment on above: Performed By: #### L [id number] #### [facility] ([facility]) [address] [place] [address] CO2 [Moles/Vol] 40 mmol/L High 21-31 [facility] Comment on above: Performed By: #### L [id number] #### [facility] ([facility]) [address] [place] [address] Creatinine [Mass/Vol] 0.60 mg/dL Normal 0.60-1.20 [facility] Comment on above: Performed By: #### L [id number] #### [facility] ([facility]) [address] [place] [address] GLOMERULAR FILTRATION RATE ML/MIN/1.73 SQ M.PREDICTED 111.3 mL/min/1.73m*2 Normal >60.0 [facility] Comment on above: Result Comment: [facility]???s estimated glomerular filtration rate (eGFR) will [...] individuals. Performed By: #### L [id number] #### [facility] ([facility]) [address] [place] [address] Glucose [Mass/Vol] 280 mg/dL High 70-100 [facility] Comment on above: Performed By: #### L [id number] #### [facility] ([facility]) [address] [place] [address] Potassium [Moles/Vol] 3.5 mmol/L Normal 3.5-5.1 [facility] Comment on above: Performed By: #### L [id number] #### [facility] ([facility]) [address] [place] [address] Protein [Mass/Vol] 6.4 g/dL Normal 6.0-8.3 [facility] Comment on above: Performed By: #### L [id number] #### [facility] ([facility]) [address] [place] [address] Sodium [Moles/Vol] 136 mmol/L Normal 136-145 [facility] Comment on above: Performed By: #### L [id number] #### [facility] ([facility]) [address] [place] [address] Urea nitrogen [Mass/Vol] 27 mg/dL High 7-25 [facility] Comment on above: Performed By: #### L [id number] #### [facility] ([facility]) [address] [place] [address] UREA NITROGEN/CREATININE (MASS RATIO) IN SER/PLAS 45.0 Normal [facility] Comment on above: Performed By: #### L [id number] #### [facility] ([facility]) [address] [place] [address] CONSULTon 08-01-2023 CONSULT ----- ----- Attestation signed [...] PMH of Asthma, who presented intimally to [facility] on 07/25 due to SOB that [...] to 76 mmHg. She was transferred to [facility] for Right heart Catheterization. She [...] likely d (more content not included)... Normal [facility] EXTRACTABLE NUCLEAR ANTIGEN ANTIBODIESon 08-01-2023 ANTI SM AB Negative Normal [facility] Comment on above: Performed By: #### L [id number] #### [facility] ([facility]) [address] [place] [address] ANTI SM/ANTIRNP AB Negative Normal [facility] Comment on above: Performed By: #### L [id number] #### [facility] ([facility]) [address] [place] [address] GRAM STAINon 08-01-2023 GRAM STAIN RESULT Normal [facility] Comment on above: Result Comment: Spec imen contains >25 Epithelial Cells/LPF, unsuitable for culture. Please submit a new specimen >25 Squamous Epithelial Cells Per Low Power Field >25 Polys Per Low Power Field Many Gram positive cocci in pairs Many Gram positive bacilli Performed By: #### L [id number] #### [facility] ([facility]) [address] [place] [address] HPon 08-01-2023 HP ----- ----- Attestation signed [...] PMH of Asthma, who presented intimally to [facility] on 07/25 due to SOB that [...] to 76 mmHg. She was transferred to [facility] for Right heart Catheterization. She [...] likely d (more content not included)... Normal [facility] ----- ----- Attestation signed by Lissette Delgado [...] Lynn Age - 47 y.[facility]. [facility] 1975 [id number] Date of Admission - 08/01/2023 1:47 AM Chief Complaint Initial presentation to [facility] with worsening shortness of breath, transferred to [facility] for right heart cath History of Present Illness 47-year-old female who presented to [facility] on 07/25 with 4 days of [...] following the patient's, who recommended transfer to [facility] for right heart cath. At [facility] Medication at [facility]: Tylenol, DuoNebs, Xanax, Lovenox for DVT [...] for: PREALBUMIN, TSH, T3FREE, FREET4, CORTISOL, FEV1, REY2ERR, DLCO, RVSP, HDL, LDL No results found for: [id number], IRON, (more content not included)... Normal [facility] MAGNESIUMon 08-01-2023 Magnesium [Mass/Vol] 1.9 mg/dL Normal 1.9-2.7 [facility] Comment on above: Performed By: #### L [id number] ####[facility] ([facility])[address] [place] [address] MPO/PR3 REFLEX TO ANCAon MYELOPEROXIDASE (MPO) AB, IGG 0 AU/mL Normal 0-19 [facility] Comment on above: Result Comment: INTE RPRETIVE INFORMATION: Myeloperoxidase Abs, IgG 19 AU/mL or Less ......... Negative 20-25 AU/mL .............. Equivocal 26 AU/mL or Greater ...... Positive Approximately 90% of patients with a P-ANCA pattern by IFA have antibodies specific for MPO. Performed By: #### L [id number] #### [facility] ([facility]) [address] [place] [address] SERINE PROTEINASE 3 (PR3) AB, IGG 1 AU/mL Normal 0-19 [facility] Comment on above: Result Comment: Myeloperoxidase [...] have antibodies specific for PR3. Performed By: [facility] [address] [place] [address] Pomologist: Saturnino Rai MD, PhD CLIA Number: [id number] Performed By: #### L [id number] #### [facility] ([facility]) [address] [place] [address] PHOSPHORUSon 08-01-2023 Magnesium [Mass/Vol] 3.8 mg/dL Normal 2.5-5.0 [facility] Comment on above: Performed By: #### L [id number] #### [facility] ([facility]) [address] [place] [address] POCT GLUCOSE METER UNSOLICIT ED RESULTSon 08-01-2023 Glucose [Mass/Vol] 310 mg/dL High 70-105 [facility] Comment on above: Order Comment: Waive d Testing in the ED is performed under the ED CLIA certificate #[id number]. Result Comment: ebol tz Performed By: #### L [id number] #### [facility] ([facility]) [address] [place] [address] Glucose [Mass/Vol] 233 mg/dL High 70-105 [facility] Comment on above: Order Comment: Waive d Testing in the ED is performed under the ED CLIA certificate #[id number]. Result Comment: shuf [id number] Performed By: #### L [id number] #### [facility] ([facility]) [address] [place] [address] PROCALCITONIN TESTon 023 PROCALCITONIN IN BLOOD 0.03 ng/mL Normal 0.00-0.10 [facility] Comment on above: Result Comment: Susp [...] PCT<0.5ng/mL Performed By: #### L [id number] #### [facility] ([facility]) [address] [place] [address] PROTIME-INRon 08-01-2023 INR IN PPP BY COAGULATION ASSAY 1.10 Normal 0.90-1.10 [facility] Comment on above: Result Comment: ACC P RECOMMENDED INR FOR WARFARIN THERAPY CONDITION [...] 1995;108:231S-246S. Performed By: #### L [id number] #### [facility] ([facility]) [address] [place] [address] PROTHROMBIN TIME (PT) IN PPP BY COAGULATION ASSAY 14.3 Seconds Normal 12.3-14.8 [facility] Comment on above: Performed By: #### L [id number] #### [facility] ([facility]) [address] [place] [address] TROPONIN Ion 08-01-2023 Troponin I.cardiac [Mass/Vol] 0.02 ng/mL Normal 0.00-0.04 [facility] Comment on above: Performed By: #### L [id number] #### [facility] ([facility]) [address] [place] [address] INXB-CrC-5bn 04-18-2020 SARS-CoV-2 Not Detected Normal Not Detected [facility] Comment on above: Result Comment: (NOT E) This test was developed and its performance characteristics determined by [employer]. This test has not been FDA cleared [...] detected) result in this assay. Performed At: [employer] [facility] [address] [facility] [place] [id number] Felisha Martinez MD Ph:[phone] Performed By: #### A COV #### [facility] [address] [place] [address] [employer]: Lonnie Lozano MD Encounters Encounter Date Encounter Type Care Provider Facility Start: 10-29-2023 End: 10-29-2023 ambulatory [facility] Start: 10-10-2023 Evaluation and management of inpatient [facility] Start: 10-10-2023 Evaluation and management of inpatient [facility] Start: 10-09-2023 Evaluation and management of inpatient [facility] Start: 10-09-2023 ambulatory [facility] Start: 10-09-2023 End: 10-10-2023 Evaluation and management of inpatient [facility] Start: 09-04-2023 End: 09-04-2023 ambulatory [facility] Start: 08-29-2023 End: 08-30-2023 ambulatory [facility] Start: 08-28-2023 End: 08-28-2023 ambulatory [facility] Start: 08-08-2023 Evaluation and management of inpatient CARLEY GOODRICH [facility] Start: 08-07-2023 Evaluation and management of inpatient VENTURA ARAUJO [facility] Start: 08-07-2023 Evaluation and management of inpatient DB HICKS [facility] Start: 08-02-2023 Evaluation and management of inpatient MCLAUGHLIN ANA [facility] Start: 08-02-2023 ambulatory MCLAUGHLIN ANAKESHAWN DELGADO [facility] Start: 08-02-2023 Evaluation and management of inpatient MCLAUGHLIN ANA DELGADO [facility] Start: 08-02-2023 Evaluation and management of inpatient MCLAUGHLIN ANA DELGADO [facility] Start: 08-01-2023 End: 08-09-2023 Evaluation and management of inpatient OLMAN MARISCAL [facility] Start: 04-15-2020 End: 04-16-2020 Patient encounter procedure BRANDIE PACHECO [facility] Start: 04-15-2020 End: 04-15-2020 Subsequent hospital visit by physician Priyanka Covid Screening Schedule [facility] Covid Screening Comment on above: Arrived Procedures Date Procedure Procedure Detail Performing Clinician Start: 04-15-2020 COVID-19 AMBULATORY SREEKANTH ZULUAGA Plan of Treatment Date Care Activity Detail Author Start: 05-18-2020 Influenza vaccination Flu vaccine (# 1) [place], [place] Start: 2015 Lipid panel Lipid screen [place], [place] Start: 1996 Screening for malign ant neoplasm of cervix Cervical cancer screen [place], [place] Start: 1994 DTaP/Tdap/Td vaccine (1 - Tdap) DTaP/Tdap/Td vaccine (1 - Tdap) [place], [place] Start: 1990 HIV screening HIV screen [place], [place] End: 04-15-2020 Covid-19 Ambulatory Covid-19 Ambulatory Lab Routine Once for 1 Occurrences starting 04/15/2020 until 04/15/2020 [place], [place] Comment on above: Once for 1 Occurrenc es starting 04/15/2020 until 04/15/2020 Covid-19 Ambulatory Covid-19 Amb ulatory Lab Routine 04/15/2020 6:59 AM EDT [place], [place] Payers Date Payer Category Payer Private Health Insurance [id number] 2014 Unknown [id number] 2014 Unknown [employer] [address] [id number] 2014-Present [phone] [address] [place] [address] [id number] 1975 Unknown [id number] Social History Date Type Detail Facility Tobacco smoking status MOIS Unknown if ev er smoked [place], [place] Sex Assigned At Not on file [place] Clinical Notes 08-02-2023 to 10-29-2023 Note Date & Type Note Facility 10-29-2023 Note [place] [facility] Subjective Daniel Lynn is a 48 y.o. year old female patient being seen for follow up ASD closure. She is not taking Opsumit yet, due to pharmacy and insurance issues. She feels good s/p intervention. Denies chest pain, SOB, palpitations, and lightheadedness/syncope. Patient Active Problem List Diagnosis Dyspnea on exertion MTHFR (methylene THF reductase) deficiency and homocystinuria (CMS/HCC) Type 2 diabetes mellitus (CMS/HCC) Smoker, current status unknown Pulmonary hypertension (CMS/HCC) ASD (atrial septal defect) Obesity due to excess calories Primary hypertension Pulmonary arterial hypertension associated with congenital heart disease (CMS/HCC) Asthma Chronic respiratory failure (CMS/HCC) Hypersomnia, unspecified Pulmonary arterial hypertension (CMS/HCC) Secundum atrial septal defect No family history on file. Social History Tobacco Use Smoking status: Some Days Types: Cigarettes SAMARIA Najera is seen in follow-up. She is a 47-year-old woman whom I met recently when she was admitted on 08/01/2023 with acute respiratory failure and hypoxia. Investigation revealed evidence of ostium secundum ASD with significant fozb-vv-mbrti shunting across it, severe pulmonary hypertension and [...] pulmonary AV malformation or other source of wexi-bi-yjttr shunting. She was started on therapy with the sildenafil 10 mg p.o. 3 times daily. She was also given prescription for macitentan which she still has not required yet. Eventually I proceeded with ASD closure on 10/09/2023 using a 34 mm Amplatzer ASO device. She did well with the procedure. Today she reports that she has significantly improved her symptoms of shortness of breath and lower extremity edema after the ASD closure. Her saturation is much better than before and according to her Apple Watch is around 97% at home. She uses oxygen only at night until she gets the CPAP machine. she has not been needing oxygen during the day. Review of Systems Cardiovascular: Positive for leg swelling (LLE, improving). All other systems reviewed and are negative. Objective Visit Vitals BP 118/74 (BP Location: Left arm, Patient Position: Sitting) Pulse 76 Ht 1.575 m (5' 2 ) Wt 121 kg (266 lb) SpO2 93% BMI 48.65 kg/m??? OB Status Having periods Smoking Status Some Days BSA 2.3 m??? Physical Exam Constitutional: Appearance: She is [...] murmur is present with a grade of 1/6. No friction rub. No gallop. Pulmonary: Effort: Pulmonary effort is normal. No [...] or shortness of breath., Disp: , Rfl: aspirin 81 mg EC tablet, Take 81 mg by mouth in the morning., Disp: , Rfl: furosemide (Lasix) 40 mg tablet, TAKE 1 TABLET BY MOUTH EVERY DAY IN THE MORNING, Disp: 90 tablet, Rfl: 3 sildenafil (Revatio) 20 mg tablet, Take 1 tablet (20 mg) by aubrie (more content not included)... [facility] 10-10-2023 Note Patient discharged w ith copy of AVS. IV removed, all belongings with patient. Patient provided post cath discharge instructions. All questions and concerns addressed. [facility] 10-10-2023 Note 10/10/23 1047 Admission Assessment Questions Verify insurance with patient Yes Do you understand medical disease or what brought you into the hospital? Yes Who is your current PCP? Favio Santiago MD Can I schedule a follow up appointment for you at the time of discharge? No Do you understand why you are taking your current medications? Yes Are you taking your medications as prescribed? Yes Did patient provide teach back? Yes Would you like use our pharmacy [facility] to fill your new medications at the time of Discharge? Yes Does the patient have a case assistant assigned to them through their insurance? Yes (doesn't recall name) Living Arrangement (Current/Prior to Hospitalization) Private residence;Home self care (lives in house w/bed bath on 1st floor. 3 entry stairs) Does the patient have history of HHC or SNF? No Assistive Device Oxygen;Grab bars Patient's goal for discharge home Was patient reminded that goal for discharge is 11am? Yes Does the patient have transportation at discharge? Yes () Type of Residence/Post Acute Needs Private residence Is PT/OT appropriate? No Is PT/OT ordered? No Is SW consult appropriate? No Is SW consult ordered? No Do you understand the benefits of MyChart? Yes Were you able to send link and activate MyChart? MyChart already active [facility] 10-09-2023 Note Patient: Daniel bernstein Procedure Information Date/Time: 10/09/23 1300 Procedure: Atrial septal defect closure Location: [facility] [employer] [facility] 3 / [facility] (Cath) Providers: Chris Roger MD Clinical information reviewed: Allergies Meds Physical Exam Airway Mallampati: III Cardiovascular Rhythm: regular Rate: normal Dental Pulmonary - normal exam Abdominal - normal exam Anesthesia Plan ASA 3 other (Conscious sedation) intravenous induction Anesthetic plan and risks discussed with patient. Use of blood products discussed with patient who consented to blood products. Plan discussed with attending. Additional Equipment Requests [facility] 08-28-2023 Note [place] [facility] Subjective Daniel Lynn is a 47 y.o. year old female patient being seen for follow up [facility]. Says her insurance will only [...] evidence of ostium secundum ASD with significant qjzd-wp-aunzn shunting across it, severe pulmonary hypertension and [...] pulmonary AV malformation or other source of ffzm-rm-yvkyx shunting. She was started on therapy with [...] 0.42 (L) 08/09/2023 (more content not included)... [facility] 08-09-2023 Note Called the [facility] for home [phone] and faxed script /f2f [phone] They are able to set up home . Patient given tank and advised to call [facility] once home( in route) Received fax, on phone with rep at [facility]. Received confirmation they have order and will set up for patient, [facility] 08-09-2023 Note Met with Patient bed [...] arrangements. Medical team notified of Pt decision [facility] 08-09-2023 Note Hospital Medicine Discharge Summary Final Discharge Diagnosis: Acute hypoxic respiratory failure, likely due to Pulmonary Hypertension Large secundum ASD with bidirectional flow. The largest septal defect measured 3.5 cm, confirmed by Cardiac MRI & MATT New onset DM-II Admission Diagnosis: Dyspnea on exertion [R06.09] Hospital course: 47-year-old female who presented to [facility] on 07/25 with 4 days of [...] following the patient's, who recommended transfer to [facility] for right heart cath. At [facility] Medication at [facility]: Tylenol, DuoNebs, Xanax, Lovenox for DVT [...] COVID-pneumonia. Patient was transferred to medical ICU [facility] for hypoxic respiratory failure likely due [...] Center 08/28/2023 2:15 PM Chris Roger MD [facility] Your medication list START taking [...] Your Medications These medications were sent to [id number] - [place], [place] - [address] [facility] [address] [facility] [place] [address] furosemide 40 mg tablet insulin detemir (more content not included)... [facility] 08-09-2023 Note ------ Attestation signed by Kvng Kumar MD at 08/09/2023 11:18 PM I reviewed the salient portions of the patient history. Agree with the noted assessment and plan. Kvng Kumar MD [facility] Physicians Pulmonary and Critical Care Medicine [...] Date Asthma COPD (chronic obstructive pulmonary disease) ([facility]) Diabetes mellitus ([facility]) Hypertension MTHFR gene mutation Obesity [...] shifts: In: 1 (more content not included)... [facility] 08-09-2023 Note 08/09/23 0920 Home Oxygen Therapy Evaluation Pulse Oximetry on room air at Rest 94 Pulse Ox on O2 with nasal cannula while at rest 94 (3 lpm) Pulse Ox on room air while walking 84 Pulse Ox on O2 with nasal cannula while walking 94 (3 lpm) Patient Qualification for home oxygen Qualifies Patient qualifies for home oxygen 3 lpm. [facility] 08-08-2023 Note Hospital Medicine Daily Progress Note - 08/08/2023 1:15 PM; Room: [facility]- Admission: 08/01/2023 1:47 AM; Length of stay: 7 days THE HOSPITALIST TEAM PREFERS TO USE [employer] FOR COMMUNICATION 7AM-7PM. IF I DO NOT RESPOND WITHIN 15 MINUTES, PLEASE PAGE ME/CALL THROUGH THE CAREER SERVICES DIRECTOR. FROM 7PM-7AM, PLEASE PAGE [phone](COVR) Code Status: Full Code Barriers to Discharge: [...] TSH 0.56 08/03/2023 No results found for: [id number], IRON, TIBC, C3, C4, PHANI, CANCA, ASO, [...] vascular detail. FI (more content not included)... [facility] 08-08-2023 Note Nutrition Screening Assessment: Patient Name: Daniel Lynn : 1975 Date of Assessment: 08/08/23 Nutrition re-screen completed Past Medical History: Diagnosis Date Asthma COPD (chronic obstructive pulmonary disease) (CMS/HCC) Diabetes mellitus (CMS/HCC) Hypertension MTHFR gene mutation Obesity Information obtained [...] Comments: Entree salad, tomato, cucumber, ranch and frisian dressing, diet coke, quesadilla with grilled chicken and sour cream and salsa 08/07/23183808/07/231836 Regular Diet Heart Healthy/HTN, CABG,Stroke, (2gNA, low fat, low cholesterol) Diet effective now Question Answer Comment Room Service? Yes Fat restriction: Heart Healthy/HTN, CABG,Stroke, (2gNA, low fat, low cholesterol) 08/07/23 1838 Meal Intakes: 75-100% Body mass index is [...] with questions and contact the dietitian via [employer] 8A-4P Sunday-Sunday. Or call the dietitian's office at extension [phone]. For weekends/holidays, the dietitian's can be reached by paging [phone] from 9A-3P. Unable to be reached via [employer] on Sunday & .) [facility] 08-08-2023 Note ------ Attestation signed by Raza Leonard MD at 08/08/2023 12:46 PM I reviewed the salient portions of the patient history. I have seen and examined the patient during rounds with the resident/fellow. I repeated the askew components of the exam. Agree with the noted assessment and plan. Raza Leonard MD [facility]icians Pulmonary interventional and Critical Care [...] Date Asthma COPD (chronic obstructive pulmonary disease) ([facility] Diabetes mellitus ([facility]) Hypertension MTHFR gene mutation Obesity [...] MSK: no my (more content not included)... [facility] 08-08-2023 Note Occupational Therapy Occupational Therapy [...] Spouse, Daughter, Son Home Adaptive Equipment: (gb, [facility], pulseoximeter) Home Layout: Two level, Able to live on main level with bedroom/bathroom Home Access: Stairs to enter with rails Entrance Stairs-Rails: Right Entrance Stairs-Number of Steps: (2) Bathroom Shower/Tub: Tub/shower unit Prior Level of Function Prior Function Level of [place]: Independent with ADLs and functional transfers, Independent [...] Eating meals?: None (Independent) Total Score OT [facility]: 24 Assessment/Plan OT Assessment OT Education/Comments: may benefit to use shower chair, brief discussion about ws/ec/pacing with good verbal return Plan OT Plan: No skilled OT Equipment Recommended: (ssc) OT - Discharge Recommendations Placed: Yes OT Goals Multi-Disciplinary Problems (from Occupational Therapy) Active Problems Not on file [facility] 08-08-2023 Note ------ Attestation signed by [...] ???F) Temporal 89 23 91 % -- 08/07/232099 119/72 -- -- 86 17 91 % [...] Transesophageal Echo (MATT) Result Date: 08/07/2023 1 [facility] Heart Station [address] [place] [address] [phone] (fax) Transesophageal Echocardiogram-[facility] Name: DANIEL LYNN Study Date: 08/07/2023 04:01 PM B/P: 124 mmHg/80 mmHg HR: 97 bpm Date of : 1975 Location: [facility] Height: 62 in. Age: 47 year(s) Patient Room: 3233 Weight: 268 lb. Gender: Female Patient Status: InPt BSA: 2.16 m2 Indication: pre-op ASD Examination: MATT/Limited Doppler/CFI, 3D images Image Quality: Good Patient Consent: Informed, written consent was obtained for the procedure Exam Location: A MATT was performed in the Portable Track Line Marker without complications Anesthesia Pharyngeal anesthesia with viscous [...] aortic valve regurgi (more content not included)... [facility] 08-07-2023 Note Patient: Daniel Pitts er Procedure Information Date/Time: 08/07/23 1000 Procedures: Coronary angiography Right heart cath Location: [facility] [employer] OPERATIONS SUPERINTENDENT 2 BIPLANE / [facility] (Cath) Providers: Chris Roger [...] with fellow and attending. Additional Equipment Requests [facility] 08-07-2023 Note H&P reviewed. RHC an d cardiac CT c/w PH and ASD. Plan for RHC/coronary angiogram for assessment of ASD closure. Procedures' details, risks and benefits discussed with the patient and she's agreeable. 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 [facility] 08-07-2023 Note ------ Attestation signed by [...] 112/71 -- -- 73 14 94 % 08/06/232110 -- -- -- 75 20 92 % [...] Bubble Study Result Date: 08/02/2023 1 [facility] [place] [facility] Heart Station [address] [place] [address] [phone] (fax) Echocardiogram-[facility] Name: DANIEL LYNN Study Date: 08/02/2023 09:04 AM B/P: 121 mmHg/88 mmHg HR: 66 bpm Date of : 1975 Location: [facility] Height: 62 in. Age: 47 [...] tricuspid valve debora (more content not included)... [facility] 08-07-2023 Note ------ Attestation signed by Kvng Kumar MD at 08/07/2023 11:57 PM I reviewed the salient portions of the patient history. I have seen and examined the patient during rounds with the resident/fellow. I repeated the askew components of the exam. Agree with the noted assessment and plan. Kvng Kumar MD [facility] Pulmonary and Critical Care Medicine ------ Medical ICU Progress Note Patient - Daniel Lynn Age - 47 y.o. - 1975 [facility] # - [id number] Date of Admission - 08/01/2023 1:47 AM HPI/Hospital Course Subjective 47-year-old female who presented to [facility] on 07/25 with 4 days of [...] following the patient's, who recommended transfer to [facility] for right heart cath. At [facility] Medication at [facility]: Tylenol, DuoNebs, Xanax, Lovenox for DVT [...] COVID-pneumonia. Patient was transferred to medical ICU [facility] for hypoxic respiratory failure likely due [...] 24 hours) at (more content not included)... [facility] 08-06-2023 Note ------ Attestation signed by [...] BP Temp Temp src Pulse Resp SpO2 08/06/2318 -- -- -- -- -- 94 % 08/06/2313 -- -- -- -- -- 94 % 08/06/23 0405 100/57 36.8 ???C (98.2 ???F) Temporal 56 20 95 % 08/06/23 0233 -- -- -- 57 18 94 % 08/06/23 0000 -- 36.2 ???C (97.2 ???F) Temporal -- -- -- 08/05/232348 -- -- -- 67 23 98 % 08/05/232339 130/78 -- -- 77 24 98 % [...] Bubble Study Result Date: 08/02/2023 1 1 [place] [facility] Heart Station [address] [facility]. [place] [id number] [phone] (fax) Echocardiogram-[facility] Name: DANIEL LYNN Study Date: 08/02/2023 09:04 AM B/P: 121 mmHg/88 mmHg HR: 66 bpm Date of : 1975 Location: [facility] Height: 62 in. Age: 47 [...] Global left ventricu (more content not included)... [facility] 08-06-2023 Note ------ Attestation signed by [...] Lynn Age - 47 [facility] 1975 [id number] Date of Admission - 08/01/2023 1:47 AM HPI/Hospital Course Subjective 47-year-old female who presented to [facility] on 07/25 with 4 days of [...] following the patient's, who recommended transfer to [facility] for right heart cath. At [facility] Medication at [facility]: Tylenol, DuoNebs, Xanax, Lovenox for DVT [...] COVID-pneumonia. Patient was transferred to medical ICU [facility] for hypoxic respiratory failure likely due [...] Decrease breath sounds (more content not included)... [facility] 08-05-2023 Note Subjective Daniel Lynn is a 47 y.o. female with PMH of Asthma and Obesity who was initially evaluated in [place] on 07/25 with with 4 days of [...] the patient and they recommended transfer to [facility] for right heart catherization. She arrived to [facility] 08/01 where she was admitted [...] Neurological: Mental Stat (more content not included)... [facility] 08-05-2023 Note Subjective Daniel Lynn is a 47 y.o. female with PMH of Asthma and Obesity who was initially evaluated in [place] on 07/25 with with 4 days of [...] the patient and they recommended transfer to [facility] for right heart catherization. She arrived to [facility] 08/01 where she was admitted [...] Neurological: Mental Stat (more content not included)... [facility] 08-05-2023 Note Cardiology Progress Note Subjective [...] Bubble Study Result Date: 08/02/2023 1 1 [facility] Heart Station [address] [place] [address] [phone] (fax) Echocardiogram-[facility] Name: DANIEL LYNN Study Date: 08/02/2023 09:04 AM B/P: 121 mmHg/88 mmHg HR: 66 bpm Date of : 1975 Location: [facility] Height: 62 in. Age: 47 [...] thickness is mildl (more content not included)... [facility] 08-05-2023 Note ------ Attestation signed by [...] We will obtain a baseline PCO2, and nurse orthopaedic PCO2 without using BiPAP, to see if we can qualify her for BiPAP at home. Clinically patient is at very high risk for obstructive sleep apnea , and also have consistent history. ------ Medical ICU Progress Note Patient - Daniel Lynn Age - 47 y.o. [facility] 1975 [id number] Date of Admission - 08/01/2023 1:47 AM HPI/Hospital Course Subjective 47-year-old female who presented to [facility] on 07/25 with 4 days of [...] following the patient's, who recommended transfer to [facility] for right heart cath. At [facility] Medication at [facility]: Tylenol, DuoNebs, Xanax, Lovenox for DVT [...] COVID-pneumonia. Patient was transferred to medical ICU [facility] for hypoxic respiratory failure likely due [...] via nasal cannula. (more content not included)... [facility] 08-04-2023 Note ------ Attestation signed by [...] 122/70 -- -- 81 23 93 % 08/03/23 2000 127/77 36.6 ???C (97.9 ???F) Temporal 84 [...] Bubble Study Result Date: 08/02/2023 1 1 [facility] Heart Station [address] [place] [address] [phone] (fax) Echocardiogram-[facility] Name: DANIEL LYNN Study Date: 08/02/2023 09:04 AM B/P: 121 mmHg/88 mmHg HR: 66 bpm Date of : 1975 Location: [facility] Height: 62 in. Age: 47 [...] Value Normal Value (more content not included)... [facility] 08-04-2023 Note ------ Attestation signed by [...] Course Subjective 47-year-old female who presented to [facility] on 07/25 with 4 days of [...] following the patient's, who recommended transfer to [facility] for right heart cath. At [facility] Medication at [facility]: Tylenol, DuoNebs, Xanax, Lovenox for DVT [...] COVID-pneumonia. Patient was transferred to medical ICU [facility] for hypoxic respiratory failure likely due [...] is 112/76 a (more content not included)... [facility] 08-03-2023 Note ------ Attestation signed by [...] Lynn Age - 47 y.o. - 1975 [id number] Date of Admission - 08/01/2023 1:47 AM HPI/Hospital Course Subjective 47-year-old female who presented to [facility] on 07/25 with 4 days of [...] following the patient's, who recommended transfer to [facility] for right heart cath. At [facility] Medication at [facility]: Tylenol, DuoNebs, Xanax, Lovenox for DVT [...] COVID-pneumonia. Patient was transferred to medical ICU [facility] for hypoxic respiratory failure likely due [...] move all extremities, (more content not included)... [facility] 08-03-2023 Note ------ Attestation signed by [...] -- -- -- 95 20 91 % 08/02/231999 119/74 36.6 ???C (97.9 ???F) -- 97 [...] acute distress. Obese HEAD: Atraumatic, normocephalic. EYES: EMMO, EOMI. NECK: No JVD present. CARDIAC: RRR. [...] Bubble Study Result Date: 08/02/2023 1 1 [facility] Heart Station [address] [place] [address] [phone] (fax) Echocardiogram-[facility] Name: DANIEL LYNN Study Date: 08/02/2023 09:04 AM B/P: 121 mmHg/88 mmHg HR: 66 bpm Date of : 1975 Location: [facility] Height: 62 in. Age: 47 [...] severely enlarged. Se (more content not included)... 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 Additional Equipment Requests [facility] 08-02-2023 Note Pharmacy Dosing Serv ice - Vancomycin Initial Consult Note Pharmacy has been consulted for the dosing and evaluation of Drug: Vancomycin Indication: pneumonia AUC 400-600 mg*hr/L and trough 10-20 mcg/mL Other Antimicrobial Regimens: cefepime 2g q8h Labs and Renal Function Total body weight: 122 kg (268 lb 8.3 oz) [place] body weight: 50.1 kg (110 lb 7.9 [...] Assessment / Comments: - 47yoF transferred to [facility] from [facility] and admitted to ICU 08/01 for acute hypoxic respiratory failure likely due to severe pulmonary hypertension and potential pneumonia. Viral panel at [facility]SH positive for rhinovirus. Procal upon admission to [facility] 0.03. WBC increased from 9.5 [...] 08/02/23 Plan discussed with Betsy Eckert PharmD [facility] 08-02-2023 Note ------ Attestation signed by [...] additional personal documentation from me. Plan for [facility] today ------ Cardiology Progress Note Subjective Subjective: [...] (97.5 ???F) 59 19 94 % -- 08/01/232302 112/67 -- 69 20 (!) 87 % -- 08/01/232299 -- -- 69 21 (!) 86 % -- 08/01/232221 -- -- -- -- 93 % -- 08/01/232199 125/65 -- 73 15 95 % -- 08/01/232099 103/78 -- 74 14 95 % -- 08/01/232008 -- -- 71 18 94 % -- 08/01/231999 105/81 36.3 ???C (97.3 ???F) 73 15 [...] Medicine Resident [facility] 08-02-2023 Note ------ Attestation signed by Lissette [...] mEq/L Final No results found for: PHVEN, EOI5AFX, PO2VEN, CIW2AGM, IONCALVEN CBC: Results from last 7 days [...] Infusions: As Need (more content not included)... 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 [employer] provides no warranty or guarantee of the accuracy or completeness of information in this document.
== END 2023-10-30 19:55 | disposition home or self-care (01) ==
LOC: SLEEP 19:54
PROVIDERS: PCP Internal Medicine; Visit Provider Internal Medicine
DX: G47.33 Obstructive sleep apnea (adult) (pediatric) (principal)
CPT/HCPCS: 95811

== ENCOUNTER 2023-11-08 06:59 | Outpatient (OUT) | payer OTHER, SELFPAY ==
--- OUTSIDE RECORDS SUMMARY | 2023-11-08 07:02 | XMS_ITS | CCD ---
Author Name Unknown Address [address] [place] [address] Organization [facility] Care Team Providers Care Molded Frames Assembler Name Role Phone BRANDIE PACHECO Referring Unavailable FAVIO SANTIAGO Primary Care Unavailable Favio Santiago Primary Care Provider [phone] DB HICKS Referring Unavailable ARAUJOVENTURA Referring Unavailable [...] source) Lisinopril; Translations: [LISINOPRIL] Drug Allergy 08-01-20 [facility] Repository (1 source) Penicillins; Translations: [PENICILLINS] Propensity to adverse reactions to drug (disorder) 08-01-20 [facility] Repository (1 source) Sulfamethoxazole / Trimethoprim; Translations: [SULFAMETHOXAZOLE-TR IMETHOPRIM] Drug Allergy 08-01-20 [facility] Repository Problems Active Problems Problem Classification [...] Range Facility Office Visiton 10-29-2023 Follow-up visit [id number] Shelly Lynn 1975 F Date Provider Department Center 10/29/2023 Dona-CHRIS ROGER LAXMI Beasley [facility] No family history on file Level of Service:15498 DE OFFICE/OUTPATIENT ESTABLISHED MOD MDM 30 MIN Normal [facility] 30on 10-10-2023 30 The patient is [...] and behaviors that affect risk of falls [place] fall precautions as indicated by assessment Educate patient/family on patient safety, including physical limitations Problem: Discharge Planning Goal: Discharge to home or other facility with appropriate resources Outcome: Progressing Problem: Chronic Conditions and Co-morbidities Goal: Patient's chronic conditions and co-morbidity symptoms are monitored and maintained or improved Outcome: Progressing Normal [facility] 30 The patient is Moder ately [...] and behaviors that affect risk of falls [place] fall precautions as indicated by assessment Educate [...] and prevent overall improvement and discharge Normal [facility] DSon 10-10-2023 DS ----- ----- Attestation [...] a large atrial septal defect and significant wrsl-ag-fxffv shunting across it, enlarged right-sided chambers, and [...] mg daily, unless otherwise directed by Dr. Roger. Some oozing from left femoral access site reported from nursing overnight. Resolved with manual pressure. Access sites (left and right fem) examined on 10/10/23, soft without hematoma, pulses palpable, no oozing. Dressings removed, no ecchymosis, mild tenderness with palpation. Hemoglobin/hematocrit stable, 13.7 g/dL/41.2 %. Chest Xray and follow up echocardiogram performed 10/10. Echocardiogram reviewed by Dr. Roger, high school business teacher, and without concerning findings. Patient cleared for [...] with echocardiogram. Dear Dr. Jack MD, [facility] is advised to follow up with you within 1-2 weeks. Follow-up with: Cardiology Scheduled appointments: Future Appointments Date Time Provider Department Center 10/29/2023 2:45 PM Chris Roger MD [facility] Your medication list [...] Medications These medications were sent to [facility] - [place], [place] - [address], [facility] [address] clopidogrel 75 mg tablet Daniel is allergic [...] are c (more content not included)... Normal [facility] HEMOGLOBIN AND HEMATOCRIT, B Naomy 10-10-2023 Hematocrit (Bld) [Volume fraction] 41.2 % Normal 36.0-48.0 [facility] Comment on above: Performed By: #### L [id number] #### [facility] ([facility]) [address] [place] [address] Hemoglobin (Bld) [Mass/Vol] 13.7 g/dL Normal 12.0-15.0 [facility] Comment on above: Performed By: #### L [id number] #### [facility] [[email or web address] (JUSTY[facility]) [address] [place] [address] HPon 10-09-2023 History Of Present Illness Daniel Lynn is a 48 y.o. female is here today for her scheduled ASD closure. She was initially seen on on 08/01/2023 with acute respiratory failure and hypoxia in hospital. Investigation revealed evidence of ostium secundum ASD with significant vhds-su-vfnbj shunting across it, severe pulmonary hypertension and [...] pulmonary AV malformation or other source of anie-sa-mmqhe shunting. She was started on therapy with [...] of Asthma, COPD (chronic obstructive pulmonary disease) ([facility]), Diabetes mellitus ([facility]), Hypertension, MTHFR gene mutation, Obesity, and Sleep [...] to se (more content not included)... Normal [facility] NURSNOTEon 10-09-2023 NURSNOTE Report given to Jo keita, RN from [facility] Any medications or safety alerts were reviewed. Any pending diagnostics and notifications were also reviewed, as well as any safety concerns or issues, abnormal labs, abnormal imagining, and abnormal assessment findings. Questions were answered. [facility] NURSNOTE Updated Dr Roger regarding IVF order. V.O. to hold IVF for now. [facility] Orders Onlyon 10-03-2023 Orders Only [id number] Shelly Lynn sti J 1975 F Date Provider Department Center 10/03/2023 LATASHA CRUZ [facility] No family history on file [facility] Prep for Procedureon 024 Prep for Procedure [id number] Shelly Lynn sti J 1975 F Date Provider Department Center 09/25/2023 Michaela-SHIRA MCDANIELS [facility] No family history on file [facility] Prep for Procedureon 023 Prep for Procedure [id number] Shelly Lynn sti J 1975 F Date Provider Department [place] 08/30/2023 CHRIS CANNON [facility] CARD [place] [facility] No family history on file [facility] Office Visiton 08-28-2023 Follow-up visit [id number] Shelly Lynn sti J 1975 F Date Provider Department Center 08/28/2023 CHRIS CANNON [facility] No family history on file Level of Service:52442 DE OFFICE/OUTPATIENT ESTABLISHED HIGH MDM 40-54 MIN [facility] 30on 08-09-2023 30 Photocopying Machine Operator received VM f or patient stating she needs assistance with the medications she was discharged with. Photocopying Machine Operator reached out to patient who states that her INS will only cover 1/2 pill of Sildenafil per day. Patient continues to explain that she paid OOP for her first prescription of Sildenafil, but that she needs her Concrete Swimming Pool Installer to reach out to INS to discuss this and have it resolved, she reports that she plans to call Dr. Felder's office Sunday to have them assist. No other needs voiced at this time, blurb writer urged patient to call OTM line next week if she has any further issues with her medications. [facility] 30 Problem: Pain - Adul t [...] and behaviors that affect risk of falls [place] fall precautions as indicated by assessment Educate [...] mucous memb (more content not included)... Normal [facility] BASIC METABOLIC PANELon 11-2 Anion gap [Moles/Vol] 9 mmol/L Normal 7-20 [facility] Comment on above: Performed By: #### L [id number] #### [facility] ([facility]) [address] [place] [address] Calcium [Mass/Vol] 8.7 mg/dL Normal 8.6-10.3 [facility] Comment on above: Performed By: #### L [id number] #### [facility] ([facility]) [address] [place] [address] Chloride [Moles/Vol] 100 mmol/L Normal 98-107 [facility] Comment on above: Performed By: #### L [id number] #### [facility] ([facility]) [address] [place] [address] CO2 [Moles/Vol] 30 mmol/L Normal 21-31 [facility] Comment on above: Performed By: #### L [id number] #### [facility] ([facility]) [address] [place] [address] Creatinine [Mass/Vol] 0.42 mg/dL Low 0.60-1.20 [facility] Comment on above: Performed By: #### L [id number] #### [facility] ([facility]) [address] [place] [address] GLOMERULAR FILTRATION RATE ML/MIN/1.73 SQ M.PREDICTED 121.3 mL/min/1.73m*2 Normal >60.0 [facility] Comment on above: Result Comment: [facility]???s estimated glomerular filtration rate (eGFR) will [...] individuals. Performed By: #### L [id number] #### [facility] ([facility]) [address] [place] [address] Glucose [Mass/Vol] 146 mg/dL High 70-100 [facility] Comment on above: Performed By: #### L [id number] #### [facility] ([facility]) [address] [place] [address] Potassium [Moles/Vol] 3.7 mmol/L Normal 3.5-5.1 [facility] Comment on above: Performed By: #### L [id number] #### [facility] ([facility]) [address] [place] [address] Sodium [Moles/Vol] 135 mmol/L Low 136-145 [facility] Comment on above: Performed By: #### L [id number] #### [facility] ([facility]) [address] [place] [address] Urea nitrogen [Mass/Vol] 17 mg/dL Normal 7-25 [facility] Comment on above: Performed By: #### L [id number] #### [facility] ([facility]) [address] [place] [address] UREA NITROGEN/CREATININE (MASS RATIO) IN SER/PLAS 40.5 Normal [facility] Comment on above: Performed By: #### L [id number] #### [facility] ([facility]) [address] [place] [address] CBCon 08-09-2023 Erythrocyte distribution width (RBC) [Ratio] 13.1 % Normal 11.5-15.0 [facility] Comment on above: Performed By: #### L [id number] #### [facility] ([facility]) [address] [place] [address] ERYTHROCYTE MEAN CORPUSCULAR HEMOGLOBIN CONCENTRATION (G/DL) BY AUTOMATED 32.6 g/dL Normal 32.0-35.0 [facility] Comment on above: Performed By: #### L [id number] #### [facility] ([facility]) [address] [place] [address] Hematocrit (Bld) [Volume fraction] 43.5 % Normal 36.0-48.0 [facility] Comment on above: Performed By: #### L [id number] #### [facility] ([facility]) [address] [place] [address] Hemoglobin (Bld) [Mass/Vol] 14.2 g/dL Normal 12.0-15.0 [facility] Comment on above: Performed By: #### L [id number] #### [facility] ([facility]) [address] [place] [address] MCH (RBC) [Entitic mass] 30.3 pg Normal 27.0-33.0 [facility] Comment on above: Performed By: #### L [id number] #### [facility] ([facility]) [address] [place] [address] MCV (RBC) [Entitic vol] 92.9 fL Normal 82.0-98.0 [facility] Comment on above: Performed By: #### L [id number] #### [facility] ([facility]) [address] [place] [address] PLATELETS (10*3/UL) IN BLOOD AUTOMATED COUNT 178 10*3/uL Normal 150-400 [facility] Comment on above: Performed By: #### L [id number] #### [facility] ([facility]) [address] [place] [address] RBC (Bld) [#/Vol] 4.68 10*6/uL Normal 3.80-5.00 [facility] Comment on above: Performed By: #### L [id number] #### [facility] ([facility]) [address] [place] [address] WBC (Bld) [#/Vol] 7.40 10*3/uL Normal 4.00-10.60 [facility] Comment on above: Performed By: #### L [id number] #### [facility] ([facility]) [address] [place] [address] MAGNESIUMon 08-09-2023 Magnesium [Mass/Vol] 1.7 mg/dL Low 1.9-2.7 [facility] Comment on above: Performed By: #### L [id number] #### [facility] ([facility]) [address] [place] [address] NURSNOTEon 08-09-2023 NURSNOTE Discharge paperwork reviewed with pt; copy of paperwork given to pt. Reviewed new medications with pt. Pt expresses understanding of instructions. Pt currently waiting on family for ride home. Normal [facility] PHOSPHORUSon 08-09-2023 Magnesium [Mass/Vol] 4.3 mg/dL Normal 2.5-5.0 [facility] Comment on above: Performed By: #### L [id number] #### [facility] ([facility]) [address] [place] [address] POCT GLUCOSE METER UNSOLICIT ED RESULTSon 08-09-2023 Glucose [Mass/Vol] 151 mg/dL High 70-105 [facility] Comment on above: Order Comment: Waive d Testing in the ED is performed under the ED CLIA certificate #[id number]. Result Comment: [email or web address] Performed By: #### L [id number] #### [facility] ([facility]) [address] [place] [address] Glucose [Mass/Vol] 124 mg/dL High 70-105 [facility] Comment on above: Order Comment: Waive d Testing in the ED is performed under the ED CLIA certificate #[id number]. Result Comment: [email or web address] Performed By: #### L [id number] #### [facility] ([facility]) [address] [place] [address] 30on 08-08-2023 30 The patient is Moder [...] Consider OT/PT consult to assist with strengthening/mobility [place] fall precautions as indicated by assessment Educate [...] symptoms for stability, deterioration, or improvement Normal [facility] 30 The patient is Moder ately [...] functionality and self care Outcome: Progressing Normal [facility] BASIC METABOLIC PANELon 11-2 Anion gap [Moles/Vol] 7 mmol/L Normal 7-20 [facility] Comment on above: Performed By: #### L [id number] #### [facility] ([facility]) [address] [place] [address] Calcium [Mass/Vol] 8.5 mg/dL Low 8.6-10.3 [facility] Comment on above: Performed By: #### L [id number] #### [facility] ([facility]) [address] [place] [address] Chloride [Moles/Vol] 102 mmol/L Normal 98-107 [facility] Comment on above: Performed By: #### L [id number] #### [facility] ([facility]) [address] [place] [address] CO2 [Moles/Vol] 30 mmol/L Normal 21-31 [facility] Comment on above: Performed By: #### L [id number] #### [facility] ([facility]) [address] [place] [address] Creatinine [Mass/Vol] 0.60 mg/dL Normal 0.60-1.20 [facility] Comment on above: Performed By: #### L [id number] #### [facility] ([facility]) [address] [place] [address] GLOMERULAR FILTRATION RATE ML/MIN/1.73 SQ M.PREDICTED 111.3 mL/min/1.73m*2 Normal >60.0 [facility] Comment on above: Result Comment: [facility]???s estimated glomerular filtration rate (eGFR) will [...] group of individuals. Performed By: #### L [id number] #### [facility] ([facility]) [address] [place] [address] Glucose [Mass/Vol] 145 mg/dL High 70-100 [facility] Comment on above: Performed By: #### L [id number] #### [facility] ([facility]) [address] [place] [address] Potassium [Moles/Vol] 3.9 mmol/L Normal 3.5-5.1 [facility] Comment on above: Performed By: #### L [id number] #### [facility] ([facility]) [address] [place] [address] Sodium [Moles/Vol] 135 mmol/L Low 136-145 [facility] Comment on above: Performed By: #### L [id number] #### [facility] ([facility]) [address] [place] [address] Urea nitrogen [Mass/Vol] 22 mg/dL Normal 7-25 [facility] Comment on above: Performed By: #### L [id number] #### [facility] ([facility]) [address] [place] [address] UREA NITROGEN/CREATININE (MASS RATIO) IN SER/PLAS 36.7 Normal [facility] Comment on above: Performed By: #### L [id number] #### [facility] ([facility]) [address] [place] [address] CBCon 08-08-2023 Erythrocyte distribution width (RBC) [Ratio] 13.0 % Normal 11.5-15.0 [facility] Comment on above: Performed By: #### L [id number] #### [facility] ([facility]) [address] [place] [address] ERYTHROCYTE MEAN CORPUSCULAR HEMOGLOBIN CONCENTRATION (G/DL) BY AUTOMATED 31.8 g/dL Low 32.0-35.0 [facility] Comment on above: Performed By: #### L [id number] #### [facility] ([facility]) [address] [place] [address] Hematocrit (Bld) [Volume fraction] 47.5 % Normal 36.0-48.0 [facility] Comment on above: Performed By: #### L [id number] #### [facility] ([facility]) [address] [place] [address] Hemoglobin (Bld) [Mass/Vol] 15.1 g/dL High 12.0-15.0 [facility] Comment on above: Performed By: #### L [id number] #### [facility] ([facility]) [address] [place] [address] MCH (RBC) [Entitic mass] 29.7 pg Normal 27.0-33.0 [facility] Comment on above: Performed By: #### L [id number] #### [facility] ([facility]) [address] [place] [address] MCV (RBC) [Entitic vol] 93.3 fL Normal 82.0-98.0 [facility] Comment on above: Performed By: #### L [id number] #### [facility] ([facility]) [address] [place] [address] PLATELETS (10*3/UL) IN BLOOD AUTOMATED COUNT 190 10*3/uL Normal 150-400 [facility] Comment on above: Performed By: #### L [id number] #### [facility] ([facility]) [address] [place] [address] RBC (Bld) [#/Vol] 5.09 10*6/uL High 3.80-5.00 [facility] Comment on above: Performed By: #### L [id number] #### [facility] ([facility]) [address] [place] [address] WBC (Bld) [#/Vol] 8.55 10*3/uL Normal 4.00-10.60 [facility] Comment on above: Performed By: #### L [id number] #### [facility] ([facility]) [address] [place] [address] CTA CHEST W AND/OR WO IV CON [...] reasonably achievable. Electronically signed: Karlos Gallardo. Normal [facility] MAGNESIUMon 08-08-2023 Magnesium [Mass/Vol] 1.8 mg/dL Low 1.9-2.7 [facility] Comment on above: Performed By: #### L [id number] #### [facility] [[email or web address]] HOSPITAL LAB ([facility]) [address] [place] [address] NURSNOTEon 08-08-2023 NURSNOTE Patient Name: Daniel Lynn [...] Pamela Babcock RN Rapid Response Team Nurse [phone] 08/08/2023 3:26 PM Normal [facility] PHOSPHORUSon 08-08-2023 Magnesium [Mass/Vol] 3.4 mg/dL Normal 2.5-5.0 [facility] Comment on above: Performed By: #### L [id number] ####[facility] ([facility])[address] [place] [address] POCT GLUCOSE METER UNSOLICIT ED RESULTSon 08-08-2023 Glucose [Mass/Vol] 331 mg/dL High 70-105 [facility] Comment on above: Order Comment: Waive d Testing in the ED is performed under the ED CLIA certificate #[id number]. Result Comment: [email or web address] Performed By: #### L [id number] #### [facility] ([facility]) [address] [place] [address] Glucose [Mass/Vol] 249 mg/dL High 70-105 [facility] Comment on above: Order Comment: Waive d Testing in the ED is performed under the ED CLIA certificate #[id number]. Result Comment: [email or web address] Performed By: #### L [id number] #### [facility] ([facility]) [address] [facility] [address] Glucose [Mass/Vol] 277 mg/dL High 70-105 [facility] Comment on above: Order Comment: Waive d Testing in the ED is performed under the ED CLIA certificate #[id number]. Result Comment: [email or web address] Performed By: #### L [id number] #### [facility] ([facility]) [address] [place] [address] Glucose [Mass/Vol] 198 mg/dL High 70-105 [facility] Comment on above: Order Comment: Waive d Testing in the ED is performed under the ED CLIA certificate #[id number]. Result Comment: [email or web address] Performed By: #### L [id number] #### [facility] [[email or web address]] [facility] ([facility]) [address] [facility] [place] [address] Glucose [Mass/Vol] 111 mg/dL High 70-105 [facility] Comment on above: Order Comment: Waive d Testing in the ED is performed under the ED CLIA certificate #[id number]. Result Comment: [email or web address] Performed By: #### L [id number] #### [facility] [[email or web address]] [facility] ([facility]ER) [address] [facility] [place] [address] 30on 08-07-2023 30 Problem: Discharge Planning Goal: [...] practices Implement preventative oral hygiene regimen Normal [facility] BASIC METABOLIC PANELon 11-2 Anion gap [Moles/Vol] 9 mmol/L Normal 7-20 [facility] Comment on above: Performed By: #### L [id number] #### [facility] ([facility]) [address] [place] [address] Calcium [Mass/Vol] 8.5 mg/dL Low 8.6-10.3 [facility] Comment on above: Performed By: #### L [id number] #### [facility] ([facility]) [address] [place] [address] Chloride [Moles/Vol] 98 mmol/L Normal 98-107 [facility] Comment on above: Performed By: #### L [id number] #### [facility] ([facility]) [address] [place] [address] CO2 [Moles/Vol] 31 mmol/L Normal 21-31 [facility] Comment on above: Performed By: #### L [id number] #### [facility] ([facility]) [address] [place] [address] Creatinine [Mass/Vol] 0.59 mg/dL Low 0.60-1.20 [facility] Comment on above: Performed By: #### L [id number] #### [facility] ([facility]) [address] [place] [address] GLOMERULAR FILTRATION RATE ML/MIN/1.73 SQ M.PREDICTED 111.8 mL/min/1.73m*2 Normal >60.0 [facility] Comment on above: Result Comment: [facility]???s estimated glomerular filtration rate (eGFR) will [...] individuals. Performed By: #### L [id number] #### [facility] ([facility]) [address] [place] [address] Glucose [Mass/Vol] 210 mg/dL High 70-100 [facility] Comment on above: Performed By: #### L [id number] #### [facility] ([facility]) [address] [place] [address] Potassium [Moles/Vol] 3.8 mmol/L Normal 3.5-5.1 [facility] Comment on above: Performed By: #### L [id number] #### [facility] ([facility]) [address] [place] [address] Sodium [Moles/Vol] 134 mmol/L Low 136-145 [facility] Comment on above: Performed By: #### L [id number] #### [facility] ([facility]) [address] [place] [address] Urea nitrogen [Mass/Vol] 25 mg/dL Normal 7-25 [facility] Comment on above: Performed By: #### L [id number] #### [facility] ([facility]) [address] [place] [address] UREA NITROGEN/CREATININE (MASS RATIO) IN SER/PLAS 42.4 Normal [facility] Comment on above: Performed By: #### L [id number] #### [facility] ([facility]) [address] [place] [address] CBCon 08-07-2023 Erythrocyte distribution width (RBC) [Ratio] 13.0 % Normal 11.5-15.0 [facility] Comment on above: Performed By: #### L [id number] #### [facility] ([facility]) [address] [place] [address] ERYTHROCYTE MEAN CORPUSCULAR HEMOGLOBIN CONCENTRATION (G/DL) BY AUTOMATED 32.6 g/dL Normal 32.0-35.0 [facility] Comment on above: Performed By: #### L [id number] #### [facility] ([facility]) [address] [place] [address] Hematocrit (Bld) [Volume fraction] 47.3 % Normal 36.0-48.0 [facility] Comment on above: Performed By: #### L [id number] #### [facility] ([facility]) [address] [place] [address] Hemoglobin (Bld) [Mass/Vol] 15.4 g/dL High 12.0-15.0 [facility] Comment on above: Performed By: #### L [id number] #### [facility] ([facility]) [address] [place] [address] MCH (RBC) [Entitic mass] 30.1 pg Normal 27.0-33.0 [facility] Comment on above: Performed By: #### L [id number] #### [facility] ([facility]) [address] [place] [address] MCV (RBC) [Entitic vol] 92.6 fL Normal 82.0-98.0 [facility] Comment on above: Performed By: #### L [id number] #### [facility] ([facility]) [address] [place] [address] PLATELETS (10*3/UL) IN BLOOD AUTOMATED COUNT 194 10*3/uL Normal 150-400 [facility] Comment on above: Performed By: #### L [id number] #### [facility] ([facility]) [address] [place] [address] RBC (Bld) [#/Vol] 5.11 10*6/uL High 3.80-5.00 [facility] Comment on above: Performed By: #### L [id number] #### [facility] ([facility]) [address] [place] [address] WBC (Bld) [#/Vol] 9.05 10*3/uL Normal 4.00-10.60 [facility] Comment on above: Performed By: #### L [id number] #### [facility] ([facility]) [address] [facility] [place] [address] MAGNESIUMon 08-07-2023 Magnesium [Mass/Vol] 1.7 mg/dL Low 1.9-2.7 [facility] Comment on above: Performed By: #### L [id number] #### [facility] ([facility]) [address] [place] [address] NURSNOTEon 08-07-2023 NURSNOTE Report given to NEDRA dhillon in CVU. All questions answered at this time- patient belongings given from blurb writer to RN. Normal [facility] PHOSPHORUSon 08-07-2023 Magnesium [Mass/Vol] 3.5 mg/dL Normal 2.5-5.0 [facility] Comment on above: Performed By: #### L [id number] #### [facility] ([facility]) [address] [place] [address] POCT GLUCOSE METER UNSOLICIT ED RESULTSon 08-07-2023 Glucose [Mass/Vol] 233 mg/dL High 70-105 [facility] Comment on above: Order Comment: Waive d Testing in the ED is performed under the ED CLIA certificate #[id number]. Result Comment: [email or web address] Performed By: #### L [id number] #### [facility] ([facility]) [address] [place] [address] Glucose [Mass/Vol] 156 mg/dL High 70-105 [facility] Comment on above: Order Comment: Waive d Testing in the ED is performed under the ED CLIA certificate #[id number]. Result Comment: [email or web address] Performed By: #### L [id number] #### [facility] ([facility]) [address] [place] [address] Glucose [Mass/Vol] 305 mg/dL High 70-105 [facility] Comment on above: Order Comment: Waive d Testing in the ED is performed under the ED CLIA certificate #[id number]. Result Comment: [email or web address] Performed By: #### L [id number] #### [facility] ([facility]) [address] [place] [address] 30on 08-06-2023 30 Problem: Pain - Adul [...] dysrhythmias or at baseline Outcome: Progressing Normal [facility] BASIC METABOLIC PANELon 112 Anion gap [Moles/Vol] 9 mmol/L Normal -20 [facility] Comment on above: Performed By: #### L [id number] #### [facility] ([facility]) [address] [place] [address] Calcium [Mass/Vol] 8.4 mg/dL Low 8.6-10.3 [facility] Comment on above: Performed By: #### L [id number] #### [facility] ([facility]) [address] [place] [address] Chloride [Moles/Vol] 100 mmol/L Normal 98-107 [facility] Comment on above: Performed By: #### L [id number] #### [facility] ([facility]) [address] [place] [address] CO2 [Moles/Vol] 30 mmol/L Normal 21-31 [facility] Comment on above: Performed By: #### L [id number] #### [facility] ([facility]) [address] [place] [address] Creatinine [Mass/Vol] 0.61 mg/dL Normal 0.60-1.20 [facility] Comment on above: Performed By: #### L [id number] #### [facility] ([facility]) [address] [place] [address] GLOMERULAR FILTRATION RATE ML/MIN/1.73 SQ M.PREDICTED 110.9 mL/min/1.73m*2 Normal >60.0 [facility] Comment on above: Result Comment: [facility]???s estimated glomerular filtration rate (eGFR) will [...] individuals. Performed By: #### L [id number] #### [facility] ([facility]) [address] [place] [address] Glucose [Mass/Vol] 180 mg/dL High 70-100 [facility] Comment on above: Performed By: #### L [id number] #### [facility] ([facility]) [address] [place] [address] Potassium [Moles/Vol] 4.1 mmol/L Normal 3.5-5.1 [facility] Comment on above: Performed By: #### L [id number] #### [facility] ([facility]) [address] [facility] [place] [address] Sodium [Moles/Vol] 135 mmol/L Low 136-145 [facility] Comment on above: Performed By: #### L [id number] #### [facility] [address] [place] [address] Urea nitrogen [Mass/Vol] 20 mg/dL Normal 7-25 [facility] Comment on above: Performed By: #### L [id number] #### [facility] ([facility]) [address] [place] [address] UREA NITROGEN/CREATININE (MASS RATIO) IN SER/PLAS 32.8 Normal [facility] Comment on above: Performed By: #### L [id number] #### [facility] ([facility]) [address] [place] [address] CBCon 08-06-2023 Erythrocyte distribution width (RBC) [Ratio] 12.9 % Normal 11.5-15.0 [facility] Comment on above: Performed By: #### L [id number] #### [facility] ([facility]) [address] [place] [address] ERYTHROCYTE MEAN CORPUSCULAR HEMOGLOBIN CONCENTRATION (G/DL) BY AUTOMATED 32.4 g/dL Normal 32.0-35.0 [facility] Comment on above: Performed By: #### L [id number] #### [facility] ([facility]) [address] [place] [address] Hematocrit (Bld) [Volume fraction] 48.5 % High 36.0-48.0 [facility] Comment on above: Performed By: #### L [id number] #### [facility] [address] [place] [address] Hemoglobin (Bld) [Mass/Vol] 15.7 g/dL High 12.0-15.0 [facility] Comment on above: Performed By: #### L [id number] #### [facility] [address] [place] [address] MCH (RBC) [Entitic mass] 30.3 pg Normal 27.0-33.0 [facility] Comment on above: Performed By: #### L [id number] #### [facility] [address] [place] [address] MCV (RBC) [Entitic vol] 93.4 fL Normal 82.0-98.0 [facility] Comment on above: Performed By: #### L [id number] #### [facility] ([facility]) [address] [place] [place] [address] PLATELETS (10*3/UL) IN BLOOD AUTOMATED COUNT 159 10*3/uL Normal 150-400 [facility] Comment on above: Performed By: #### L [id number] #### [facility] ([facility]) [address] [place] [address] RBC (Bld) [#/Vol] 5.19 10*6/uL High 3.80-5.00 [facility] Comment on above: Performed By: #### L [id number] #### [facility] ([facility]) [address] [place] [address] WBC (Bld) [#/Vol] 8.36 10*3/uL Normal 4.00-10.60 [facility] Comment on above: Performed By: #### L [id number] #### [facility] ([facility]) [address] [place] [address] MAGNESIUMon 08-06-2023 Magnesium [Mass/Vol] 1.8 mg/dL Low 1.9-2.7 [facility] Comment on above: Performed By: #### L [id number] #### [facility] ([facility]) [address] [place] [address] MRI CARDIAC MORPHOLOGY AND F UNCTION W [...] . . Electronically signed: Cade Farley. Normal [facility] PHOSPHORUSon 08-06-2023 Magnesium [Mass/Vol] 3.2 mg/dL Normal 2.5-5.0 [facility] Comment on above: Performed By: #### L [id number] #### [email or web address] ([facility]) [address] [place] [address] POCT GLUCOSE METER UNSOLICIT ED RESULTSon 08-06-2023 Glucose [Mass/Vol] 240 mg/dL High 70-105 [facility] Comment on above: Order Comment: Waive d Testing in the ED is performed under the ED CLIA certificate #[id number]. Result Comment: [email or web address] Performed By: #### L [id number] ####[facility] [[email or web address] ([facility])[address] [place] [address] Glucose [Mass/Vol] 240 mg/dL High 70-105 [facility] Comment on above: Order Comment: Waive d Testing in the ED is performed under the ED CLIA certificate #[id number]. Result Comment: [email or web address] Performed By: #### L [id number] #### [facility] [[email or web address] ([facility]) [address] [place] [address] Glucose [Mass/Vol] 252 mg/dL High 70-105 [facility] Comment on above: Order Comment: Waive d Testing in the ED is performed under the ED CLIA certificate #[id number]. Result Comment: [email or web address] Performed By: #### L [id number] #### [facility] ([facility]) [address] [place] [address] 30on 08-05-2023 30 The patient is Moder [...] Goal: Maintains hematologic stability Outcome: Progressing Normal [facility] 30 Problem: Pain - Adul t [...] goals for the shift include VSS Normal [facility] BASIC METABOLIC PANELon 11-1 Anion gap [Moles/Vol] 7 mmol/L Normal 7-20 [facility] Comment on above: Performed By: #### L [id number] #### [facility] [[email or web address] ([facility]) [address] [place] [address] Calcium [Mass/Vol] 8.4 mg/dL Low 8.6-10.3 [facility] Comment on above: Performed By: #### L [id number] #### [facility] ([facility]) [address] [place] [address] Chloride [Moles/Vol] 99 mmol/L Normal 98-107 [facility] Comment on above: Performed By: #### L [id number] #### [facility] ([facility]) [address] [place] [address] CO2 [Moles/Vol] 33 mmol/L High 21-31 [facility] Comment on above: Performed By: #### L [id number] #### [facility] ([facility]) [address] [place] [address] Creatinine [Mass/Vol] 0.75 mg/dL Normal 0.60-1.20 [facility] Comment on above: Performed By: #### L [id number] #### [facility] [address] [place] [address] GLOMERULAR FILTRATION RATE ML/MIN/1.73 SQ M.PREDICTED 98.8 mL/min/1.73m*2 Normal >60.0 [facility] Comment on above: Result Comment: [facility]???s estimated glomerular filtration rate (eGFR) will [...] individuals. Performed By: #### L [id number] #### [facility] ([facility]) [address] [place] [address] Glucose [Mass/Vol] 206 mg/dL High 70-100 [facility] Comment on above: Performed By: #### L [id number] #### [facility] ([facility]) [address] [place] [address] Potassium [Moles/Vol] 3.7 mmol/L Normal 3.5-5.1 [facility] Comment on above: Performed By: #### L [id number] #### [facility] ([facility]) [address] [place] [address] Sodium [Moles/Vol] 135 mmol/L Low 136-145 [facility] Comment on above: Performed By: #### L [id number] #### [facility] ([facility]) [address] [place] [address] Urea nitrogen [Mass/Vol] 26 mg/dL High 7-25 [facility] Comment on above: Performed By: #### L [id number] #### [facility] ([facility]) [address] [facility] [address] UREA NITROGEN/CREATININE (MASS RATIO) IN SER/PLAS 34.7 Normal [facility] Comment on above: Performed By: #### L [id number] #### [facility] ([facility]) [address] [place] [address] CBCon 08-05-2023 Erythrocyte distribution width (RBC) [Ratio] 13.0 % Normal 11.5-15.0 [facility] Comment on above: Performed By: #### L [id number] ####[facility] ([facility])[address] [place] [address] ERYTHROCYTE MEAN CORPUSCULAR HEMOGLOBIN CONCENTRATION (G/DL) BY AUTOMATED 32.7 g/dL Normal 32.0-35.0 [facility] Comment on above: Performed By: #### L [id number] ####[facility] [place] [address] Hematocrit (Bld) [Volume fraction] 49.5 % High 36.0-48.0 [facility] Comment on above: Performed By: #### L [id number] ####[facility] ([facility])[address] [place] [address] Hemoglobin (Bld) [Mass/Vol] 16.2 g/dL High 12.0-15.0 [facility] Comment on above: Performed By: #### L [id number] ####[facility] ([facility])[address] [place] [address] MCH (RBC) [Entitic mass] 30.6 pg Normal 27.0-33.0 [facility] Comment on above: Performed By: #### L [id number] ####[facility] [place] [address] MCV (RBC) [Entitic vol] 93.4 fL Normal 82.0-98.0 [facility] Comment on above: Performed By: #### L [id number] ####[facility] [place] [address] PLATELETS (10*3/UL) IN BLOOD AUTOMATED COUNT 190 10*3/uL Normal 150-400 [facility] Comment on above: Performed By: #### L [id number] ####[facility])[address] [place] [address] RBC (Bld) [#/Vol] 5.30 10*6/uL High 3.80-5.00 [facility] Comment on above: Performed By: #### L [id number] ####[facility] ([facility])[address] [place] [address] WBC (Bld) [#/Vol] 9.57 10*3/uL Normal 4.00-10.60 [facility] Comment on above: Performed By: #### L [id number] ####[facility] ([facility])[address] [place] [address] MAGNESIUMon 08-05-2023 Magnesium [Mass/Vol] 1.9 mg/dL Normal 1.9-2.7 [facility] Comment on above: Performed By: #### L [id number] ####[facility] ([facility])[address] [place] [address] PHOSPHORUSon 08-05-2023 Magnesium [Mass/Vol] 3.1 mg/dL Normal 2.5-5.0 [facility] Comment on above: Performed By: #### L [id number] #### [facility] ([facility]) [address] [place] [address] POCT GLUCOSE METER UNSOLICIT ED RESULTSon 08-05-2023 Glucose [Mass/Vol] 272 mg/dL High 70-105 [facility] Comment on above: Order Comment: Waive d Testing in the ED is performed under the ED CLIA certificate #[id number]. Result Comment: [email or web address] Performed By: #### L [id number] #### [facility] ([facility]) [address] [place] [address] Glucose [Mass/Vol] 203 mg/dL High 70-105 [facility] Comment on above: Order Comment: Waive d Testing in the ED is performed under the ED CLIA certificate #[id number]. Result Comment: ana [email or web address] Performed By: #### L [id number] ####[facility] ([facility])[address] [place] [address] Glucose [Mass/Vol] 227 mg/dL High 70-105 [facility] Comment on above: Order Comment: Waive d Testing in the ED is performed under the ED CLIA certificate #[id number]. Result Comment: [email or web address] Performed By: #### L [id number] #### [facility] ([facility]) [address] [place] [address] Glucose [Mass/Vol] 200 mg/dL High 70-105 [facility] Comment on above: Order Comment: Waive d Testing in the ED is performed under the ED CLIA certificate #[id number]. Result Comment: ana [email or web address] Performed By: #### L [id number] #### [facility] ([facility]) [address] [facility] [place] [address] 30on 08-04-2023 30 The patient is Moder [...] Goal: Maintains hematologic stability Outcome: Progressing Normal [facility] 30 The patient is Moder ately [...] Goal: Maintains hematologic stability Outcome: Progressing Normal [facility] BASIC METABOLIC PANELon 11- Anion gap [Moles/Vol] 7 mmol/L Normal 7-20 [facility] Comment on above: Performed By: #### L [id number] ####[facility] [place] [address] Calcium [Mass/Vol] 8.4 mg/dL Low 8.6-10.3 [facility] Comment on above: Performed By: #### L [id number] ####[facility] [place] [address] Chloride [Moles/Vol] 99 mmol/L Normal 98-107 [facility] Comment on above: Performed By: #### L [id number] ####[facility] ([facility])[address] [place] [address] CO2 [Moles/Vol] 33 mmol/L High 21-31 [facility] Comment on above: Performed By: #### L [id number] ####[facility] [place] [address] Creatinine [Mass/Vol] 0.82 mg/dL Normal 0.60-1.20 [facility] Comment on above: Performed By: #### L [id number] ####[facility] ([facility])[address] [place] [address] GLOMERULAR FILTRATION RATE ML/MIN/1.73 SQ M.PREDICTED 88.7 mL/min/1.73m*2 Normal >60.0 [facility] Comment on above: Result Comment: [facility]???s estimated glomerular filtration rate (eGFR) will [...] of individuals. Performed By: #### L [id number] ####[facility] ([facility] [place] [address] Glucose [Mass/Vol] 207 mg/dL High 70-100 [facility] Comment on above: Performed By: #### L [id number] ####[facility] ([facility])[address] [place] [address] Potassium [Moles/Vol] 3.8 mmol/L Normal 3.5-5.1 [facility] Comment on above: Performed By: #### L [id number] ####[facility] ([facility])[address] [place] [address] Sodium [Moles/Vol] 135 mmol/L Low 136-145 [facility] Comment on above: Performed By: #### L [id number] ####[facility] ([facility])[address] [place] [address] Urea nitrogen [Mass/Vol] 28 mg/dL High 7-25 [facility] Comment on above: Performed By: #### L [id number] ####[facility] ([facility])[address] [place] [address] UREA NITROGEN/CREATININE (MASS RATIO) IN SER/PLAS 34.1 Normal [facility] Comment on above: Performed By: #### L [id number] ####[facility] ([facility])[address] [place] [address] CBCon 08-04-2023 Erythrocyte distribution width (RBC) [Ratio] 13.0 % Normal 11.5-15.0 [facility] Comment on above: Performed By: #### L [id number] ####[facility] ([facility])[address] [place] [address] ERYTHROCYTE MEAN CORPUSCULAR HEMOGLOBIN CONCENTRATION (G/DL) BY AUTOMATED 32.5 g/dL Normal 32.0-35.0 [facility] Comment on above: Performed By: #### L [id number] ####[facility] ([facility])[address] [place] [address] Hematocrit (Bld) [Volume fraction] 49.9 % High 36.0-48.0 [facility] Comment on above: Performed By: #### L [id number] ####[facility] [place] [address] Hemoglobin (Bld) [Mass/Vol] 16.2 g/dL High 12.0-15.0 [facility] Comment on above: Performed By: #### L [id number] ####[facility] ([facility])[address] [place] [address] MCH (RBC) [Entitic mass] 30.5 pg Normal 27.0-33.0 [facility] Comment on above: Performed By: #### L [id number] ####[facility] ([facility])[address] [place] [address] MCV (RBC) [Entitic vol] 93.8 fL Normal 82.0-98.0 [facility] Comment on above: Performed By: #### L [id number] ####[facility] ([facility])[address] [place] [address] PLATELETS (10*3/UL) IN BLOOD AUTOMATED COUNT 197 10*3/uL Normal 150-400 [facility] Comment on above: Performed By: #### L [id number] ####[facility] ([facility])[address] [place] [address] RBC (Bld) [#/Vol] 5.32 10*6/uL High 3.80-5.00 [facility] Comment on above: Performed By: #### L [id number] ####[facility] ([facility])[address] [place] [address] WBC (Bld) [#/Vol] 10.19 10*3/uL Normal 4.00-10.60 [facility] Comment on above: Performed By: #### L [id number] ####[facility] [place] [address] CONSULTon 08-04-2023 CONSULT Inpatient consult to Cardiothoracic Surgery Consult performed by: Gian Cardona NP Consult ordered by: Lissette Delgado MD Reason for consult: ASD History Of Present Illness Daniel Lynn is a 47 y.o. female with PMH of Asthma and Obesity who was initially evaluated in [place] on 07/25 with with 4 days of [...] the patient and they recommended transfer to [facility] [[email or web address]] for right heart catherization. She arrived to [facility] [[email or web address]] 08/01 where she was admitted to the [...] of Asthma, COPD (chronic obstructive pulmonary disease) ([facility]), Diabetes mellitus ([facility]), Hypertension, MTHFR gene mutation, and Obesity. Surgical [...] Mental Status (more content not included)... Normal [facility] MAGNESIUMon 08-04-2023 Magnesium [Mass/Vol] 1.9 mg/dL Normal 1.9-2.7 [facility] Comment on above: Performed By: #### L [id number] #### [facility] ([facility]) [address] [place] [address] PHOSPHORUSon 08-04-2023 Magnesium [Mass/Vol] 2.8 mg/dL Normal 2.5-5.0 [facility] Comment on above: Performed By: #### L [id number] #### [facility] ([facility]) [address] [place] [address] POCT GLUCOSE METER UNSOLICIT ED RESULTSon 08-04-2023 Glucose [Mass/Vol] 310 mg/dL High 70-105 [facility] Comment on above: Order Comment: Waive d Testing in the ED is performed under the ED CLIA certificate #[id number]. Result Comment: nfre [email or web address] Performed By: #### L [id number] #### [facility] ([facility]) [address] [place] [address] Glucose [Mass/Vol] 248 mg/dL High 70-105 [facility] Comment on above: Order Comment: Waive d Testing in the ED is performed under the ED CLIA certificate #[id number]. Result Comment: [email or web address] Performed By: #### L [id number] #### [facility] ([facility]) [address] [place] [address] Glucose [Mass/Vol] 212 mg/dL High 70-105 [facility] Comment on above: Order Comment: Waive d Testing in the ED is performed under the ED CLIA certificate #[id number]. Result Comment: [email or web address] Performed By: #### L [id number] #### [facility] ([facility]) [address] [place] [address] Glucose [Mass/Vol] 185 mg/dL High 70-105 [facility] Comment on above: Order Comment: Waive d Testing in the ED is performed under the ED CLIA certificate #[id number]. Result Comment: [email or web address] Performed By: #### L [id number] ####[facility] ([facility] [place] [address] BASIC METABOLIC PANELon 11-1 Anion gap [Moles/Vol] 10 mmol/L Normal 7-20 [facility] Comment on above: Performed By: #### L [id number] #### [facility] [[email or web address] ([facility] [address] [place] [address] Calcium [Mass/Vol] 8.7 mg/dL Normal 8.6-10.3 [facility] Comment on above: Performed By: #### L [id number] #### [facility]) [address] [place] [address] Chloride [Moles/Vol] 95 mmol/L Low 98-107 [facility] Comment on above: Performed By: #### L [id number] #### [facility]) [address] [place] [address] CO2 [Moles/Vol] 32 mmol/L High 21-31 [facility] Comment on above: Performed By: #### L [id number] #### [facility] ([facility]) [address] [place] [address] Creatinine [Mass/Vol] 0.67 mg/dL Normal 0.60-1.20 [facility] Comment on above: Performed By: #### L [id number] #### [facility]) [address] [place] [address] GLOMERULAR FILTRATION RATE ML/MIN/1.73 SQ M.PREDICTED 108.4 mL/min/1.73m*2 Normal >60.0 [facility] Comment on above: Result Comment: [facility]???s estimated glomerular filtration rate (eGFR) will [...] group of individuals. Performed By: #### L [id number] #### [facility] ([facility]) [address] [place] [address] Glucose [Mass/Vol] 277 mg/dL High 70-100 [facility] Comment on above: Performed By: #### L [id number] #### [facility] ([facility]) [address] [place] [address] Potassium [Moles/Vol] 3.6 mmol/L Normal 3.5-5.1 [facility] Comment on above: Performed By: #### L [id number] #### [facility] ([facility]) [address] [place] [address] Sodium [Moles/Vol] 133 mmol/L Low 136-145 [facility] Comment on above: Performed By: #### L [id number] #### [facility] ([facility]) [address] [place] [address] Urea nitrogen [Mass/Vol] 32 mg/dL High 7-25 [facility] Comment on above: Performed By: #### L [id number] #### [facility] ([facility]) [address] [place] [address] UREA NITROGEN/CREATININE (MASS RATIO) IN SER/PLAS 47.8 Normal [facility] Comment on above: Performed By: #### L [id number] #### [facility] ([facility]) [address] [place] [address] CBCon 08-03-2023 Erythrocyte distribution width (RBC) [Ratio] 13.0 % Normal 11.5-15.0 [facility] Comment on above: Performed By: #### L [id number] #### [facility] ([facility]) [address] [place] [address] ERYTHROCYTE MEAN CORPUSCULAR HEMOGLOBIN CONCENTRATION (G/DL) BY AUTOMATED 32.7 g/dL Normal 32.0-35.0 [facility] Comment on above: Performed By: #### L [id number] #### [facility] ([facility]) [address] [place] [address] Hematocrit (Bld) [Volume fraction] 54.8 % High 36.0-48.0 [facility] Comment on above: Performed By: #### L [id number] #### [facility] ([facility]) [address] [place] [address] Hemoglobin (Bld) [Mass/Vol] 17.9 g/dL High 12.0-15.0 [facility] Comment on above: Performed By: #### L [id number] #### [facility] ([facility]) [address] [place] [address] MCH (RBC) [Entitic mass] 30.5 pg Normal 27.0-33.0 [facility] Comment on above: Performed By: #### L [id number] #### [facility] ([facility]) [address] [place] [address] MCV (RBC) [Entitic vol] 93.5 fL Normal 82.0-98.0 [facility] Comment on above: Performed By: #### L [id number] #### [facility] ([facility]) [address] [place] [address] PLATELETS (10*3/UL) IN BLOOD AUTOMATED COUNT 208 10*3/uL Normal 150-400 [facility] Comment on above: Performed By: #### L [id number] #### [facility] ([facility]) [address] [place] [address] RBC (Bld) [#/Vol] 5.86 10*6/uL High 3.80-5.00 [facility] Comment on above: Performed By: #### L [id number] #### [facility] ([facility]) [address] [place] [address] WBC (Bld) [#/Vol] 12.73 10*3/uL High 4.00-10.60 [facility] Comment on above: Performed By: #### L [id number] #### [facility] ([facility]) [address] [place] [address] MAGNESIUMon 08-03-2023 Magnesium [Mass/Vol] 1.9 mg/dL Normal 1.9-2.7 [facility] Comment on above: Performed By: #### L [id number] #### [facility] ([facility]) [address] [place] [address] PHOSPHORUSon 08-03-2023 Magnesium [Mass/Vol] 3.3 mg/dL Normal 2.5-5.0 [facility] Comment on above: Performed By: #### L [id number] #### [facility] ([facility]) [address] [place] [address] POCT GLUCOSE METER UNSOLICIT ED RESULTSon 08-03-2023 Glucose [Mass/Vol] 286 mg/dL High 70-105 [facility] Comment on above: Order Comment: Waive d Testing in the ED is performed under the ED CLIA certificate #[id number]. Result Comment: nfre [email or web address] Performed By: #### L [id number] #### [facility] ([facility]) [address] [place] [address] Glucose [Mass/Vol] 214 mg/dL High 70-105 [facility] Comment on above: Order Comment: Waive d Testing in the ED is performed under the ED CLIA certificate #[id number]. Result Comment: [email or web address] Performed By: #### L [id number] #### [facility] ([facility]) [address] [place] [address] Glucose [Mass/Vol] 239 mg/dL High 70-105 [facility] Comment on above: Order Comment: Waive d Testing in the ED is performed under the ED CLIA certificate #[id number]. Result Comment: [email or web address] Performed By: #### L [id number] #### [facility] ([facility]) [address] [place] [address] Glucose [Mass/Vol] 234 mg/dL High 70-105 [facility] Comment on above: Order Comment: Waive d Testing in the ED is performed under the ED CLIA certificate #[id number]. Result Comment: [email or web address] Performed By: #### L [id number] #### [facility] ([facility]) [address] [place] [address] TSH3 REFLEX TO FT4on 023 THYROTROPIN (MIU/L) IN SER/PLAS BY DETECTION LIMIT <= 0.05 MIU/L 0.56 mIU/L Normal 0.34-5.60 [facility] Comment on above: Performed By: #### L [id number] #### [facility] ([facility]) [address] [place] [address] ANAon 08-02-2023 PHANI TITER <1:40 Normal <=1:40 [facility] Comment on above: Result Comment: Test performed using SERGE IFA PHANI Hep-2 Test, a pre-standardized assay designed for the qualitative and semi-quantitative detection of antinuclear antibodies. Performed By: #### L [id number] #### [facility] ([facility]) [address] [place] [address] ANTI-CENTROMERE ANTIBODYon 10-02-2022 ANTI-CENTROMERE ANTIBODY Negative Normal Negative [facility] Comment on above: Performed By: #### L [id number] #### [facility] ([facility]) [address] [place] [address] ANTI-DNASE B ANTIBODYon 07-18 DNASE B ANTIBODY <86 Normal <=259 [facility] Comment on above: Result Comment: REFE [...] of a recent Streptococcus infection. Performed By: [facility] [address] [place] [address] Hand Sign Writer: Saturnino Rai MD, PhD CLIA Number: [id number] Performed By: #### L [id number] #### [facility] ([facility]) [address] [place] [address] ANTI-RITU 1 ANTIBODY, IGGon ANTI RITU-1 IGG 1 AU/mL Normal 0-40 [facility] Comment on above: Result Comment: INTE RPRETIVE INFORMATION: Ritu-1 Antibody, IgG 29 AU/mL or less.........Negative 30-40 AU/mL..............Equivocal 41 AU/mL or greater......Positive Presence of Ritu-1 (antihistidyl transfer RNA [t-RNA] synthetase) antibody is associated with polymyositis and may also be seen in patients with dermatomyositis. Ritu-1 antibody is associated with pulmonary involvement (interstitial lung disease), Raynaud phenomenon, arthritis, and lawnmower mechanic's hands (implicated in antisynthetase syndrome). Performed By: [facility] [address] [place] [address] Hand Sign Writer: Saturnino Rai MD, PhD CLIA Number: [id number] Performed By: #### L [id number] #### [facility] ([facility]) [address] [place] [address] ARTERIAL BLOOD GAS WITH IONI ZED CALCIUMon 08-02-2023 Base excess Calc (Bld) [Moles/Vol] 13.8 mmol/L High -2.0-3.0 [facility] Comment on above: Order Comment: 04/26 Performed By: #### L [id number] #### [facility] ([facility]) [address] [place] [address] CALCIUM IONIZED (MMOL/L) IN BLOOD 1.08 mmol/L Low 1.15-1.33 [facility] Comment on above: Order Comment: 04/26 Performed By: #### L [id number] #### [facility] [[email or web address]] H[facility] ([facility]) [address] [place] [address] CO2 (Bld) [Partial pressure] 60 mm[Hg] Critically high 35-48 [facility] Comment on above: Order Comment: 04/26 Performed By: #### L [id number] #### [facility] [[email or web address]] [facility] ([facility]) [address] [place] [address] FIO2 90 % Normal [facility] Comment on above: Order Comment: 04/26 Performed By: #### L [id number] #### [facility] [[email or web address]] [facility] ([facility]) [address] [place] [address] HCO3 (Bld) [Moles/Vol] 40.8 mmol/L High 21.0-28.0 [facility] Comment on above: Order Comment: 04/26 Performed By: #### L [id number] #### [facility] [[email or web address]] [facility] ([facility]) [address] [place] [address] Oxygen (Bld) [Partial pressure] 89 mm[Hg] Normal 83-100 [facility] Comment on above: Order Comment: 04/26 Performed By: #### L [id number] #### [facility] [[email or web address]] [facility] ([facility]) [address] [place] [address] OXYGEN SATURATION (%) IN ARTERIAL BLOOD 97.8 % Normal 94.0-98.0 [facility] Comment on above: Order Comment: 04/26 Performed By: #### L [id number] #### [facility] [[email or web address]] [facility] ([facility]) [address] [place] [address] pH (Bld) 7.44 [pH] Normal 7.35-7.45 [facility] Comment on above: Order Comment: 04/26 Performed By: #### L [id number] #### [facility] [[email or web address]] [facility] ([facility]) [address] [place] [address] SOURCE OF OXYGEN Bi-PAP Normal [facility] Comment on above: Order Comment: 10 Performed By: #### L [id number] #### [facility] [[email or web address]] [facility] ([facility]) [address] [place] [address] B-TYPE NATRIURETIC PEPTIDEon 08-02-2023 Natriuretic peptide B (Bld) [Mass/Vol] 37 pg/mL Normal 0-100 [facility] Comment on above: Performed By: #### L [id number] #### [facility]) [address] [place] [address] BASIC METABOLIC PANELon 07-18 Anion gap [Moles/Vol] 10 mmol/L Normal 7-20 [facility] Comment on above: Performed By: #### L [id number] #### [facility] ([facility]) [address] [place] [address] Calcium [Mass/Vol] 8.8 mg/dL Normal 8.6-10.3 [facility] Comment on above: Performed By: #### L [id number] #### [facility]) [address] [place] [address] Chloride [Moles/Vol] 91 mmol/L Low 98-107 [facility] Comment on above: Performed By: #### L [id number] #### [facility]) [address] [place] [address] CO2 [Moles/Vol] 39 mmol/L High 21-31 [facility] Comment on above: Performed By: #### L [id number] #### [facility] [[email or web address] ([facility]) [address] [place] [address] Creatinine [Mass/Vol] 0.70 mg/dL Normal 0.60-1.20 [facility] Comment on above: Performed By: #### L [id number] #### [facility]) [address] [place] [address] GLOMERULAR FILTRATION RATE ML/MIN/1.73 SQ M.PREDICTED 107.3 mL/min/1.73m*2 Normal >60.0 [facility] Comment on above: Result Comment: [facility]???s estimated glomerular filtration rate (eGFR) will [...] individuals. Performed By: #### L [id number] #### [facility] ([facility]) [address] [place] [address] Glucose [Mass/Vol] 231 mg/dL High 70-100 [facility] Comment on above: Performed By: #### L [id number] #### [facility] ([facility]) [address] [place] [address] Potassium [Moles/Vol] 3.7 mmol/L Normal 3.5-5.1 [facility] Comment on above: Performed By: #### L [id number] #### [facility] ([facility]) [address] [place] [address] Sodium [Moles/Vol] 136 mmol/L Normal 136-145 [facility] Comment on above: Performed By: #### L [id number] #### [facility] ([facility]) [address] [place] [address] Urea nitrogen [Mass/Vol] 29 mg/dL High 7-25 [facility] Comment on above: Performed By: #### L [id number] #### [facility] ([facility]) [address] [place] [address] UREA NITROGEN/CREATININE (MASS RATIO) IN SER/PLAS 41.4 Normal [facility] Comment on above: Performed By: #### L [id number] #### [facility] ([facility]) [address] [place] [address] CBCon 08-02-2023 Erythrocyte distribution width (RBC) [Ratio] 13.2 % Normal 11.5-15.0 [facility] Comment on above: Performed By: #### L [id number] #### [facility]) [address] [place] [address] ERYTHROCYTE MEAN CORPUSCULAR HEMOGLOBIN CONCENTRATION (G/DL) BY AUTOMATED 32.4 g/dL Normal 32.0-35.0 [facility] Comment on above: Performed By: #### L [id number] #### [facility] ([facility]) [address] [place] [address] Hematocrit (Bld) [Volume fraction] 56.2 % High 36.0-48.0 [facility] Comment on above: Performed By: #### L [id number] #### [facility] ([facility]) [address] [place] [address] Hemoglobin (Bld) [Mass/Vol] 18.2 g/dL High 12.0-15.0 [facility] Comment on above: Performed By: #### L [id number] #### [facility] ([facility]) [address] [place] [address] MCH (RBC) [Entitic mass] 30.6 pg Normal 27.0-33.0 [facility] Comment on above: Performed By: #### L [id number] #### [facility] ([facility]) [address] [place] [address] MCV (RBC) [Entitic vol] 94.5 fL Normal 82.0-98.0 [facility] Comment on above: Performed By: #### L [id number] #### [facility] ([facility]) [address] [place] [address] PLATELETS (10*3/UL) IN BLOOD AUTOMATED COUNT 237 10*3/uL Normal 150-400 [facility] Comment on above: Performed By: #### L [id number] #### [facility] [address] [place] [address] RBC (Bld) [#/Vol] 5.95 10*6/uL High 3.80-5.00 [facility] Comment on above: Performed By: #### L [id number] #### [facility] [[email or web address]] [facility] ([facility]) [address] [place] [address] WBC (Bld) [#/Vol] 12.17 10*3/uL High 4.00-10.60 [facility] Comment on above: Performed By: #### L [id number] #### [facility] ([facility]) [address] [place] [address] CT CHEST HIGH RESOLUTION WO CONTRASTon 08-02-2023 [...] reasonably achievable. Electronically signed: Lonnie Tolentino. Normal [facility] CTA HEART STRUCTURE MORPHOLO GY W [...] the actual shunt. No pericardial effusion Large [id number] images obtained but there is no evidence [...] consistent with atelectasis Electronically signed: Cade Farley. [facility] 08-02-2023 H&P reviewed. The pa tient was examined and there are no changes to the H&P. Normal [facility] LEGIONELLA ANTIGEN, URINEon 08-02-2023 LEGIONELLA AG, UR Negative Normal [facility]G [facility] Comment on above: Result Comment: L. p neumophila serogroup 1 antigen not detected. A negative result does not exclude infection with Leginella pnemophila serogroup 1 nor does it rule out other microbial-caused respiratory infections of disease caused by other serogroups of Legionella pneumophila. Test Performed by [facility] [place] [address] - Released 08/02/2023 19:58 Performed By: #### L [id number] #### [facility] [address] [place] [address] MAGNESIUMon 08-02-2023 Magnesium [Mass/Vol] 2.0 mg/dL Normal 1.9-2.7 [facility] Comment on above: Performed By: #### L [id number] #### [facility] ([facility]) [address] [place] [address] MRSA/MSSA DNA NASALon 2022 MRSA DNA Negative Normal Negative [facility] Comment on above: Order Comment: Testi [...] colonization. Performed By: #### L [id number] #### [facility] ([facility]) [address] [place] [address] MSSA DNA Negative Normal Negative [facility] Comment on above: Order Comment: Testi [...] colonization. Performed By: #### L [id number] #### [facility] ([facility]) [address] [place] [address] NM LUNG PERFUSION PARTICULAT Cruzito 08-02-2023 NM [...] pulmonary thromboembolism. Electronically signed: Lonnie Tolentino. Normal [facility] PHOSPHORUSon 08-02-2023 Magnesium [Mass/Vol] 4.5 mg/dL Normal 2.5-5.0 [facility] Comment on above: Performed By: #### L [id number] #### [facility] ([facility]) [address] [place] [address] POCT GLUCOSE METER UNSOLICIT ED RESULTSon 08-02-2023 Glucose [Mass/Vol] 337 mg/dL High 70-105 [facility] Comment on above: Order Comment: Waive d Testing in the ED is performed under the ED CLIA certificate #[id number]. Result Comment: ebol tz Performed By: #### L [id number] #### [facility] ([facility]) [address] [place] [address] Glucose [Mass/Vol] 164 mg/dL High 70-105 [facility] Comment on above: Order Comment: Waive d Testing in the ED is performed under the ED CLIA certificate #[id number]. Result Comment: lhag iga Performed By: #### L [id number] #### [facility] ([facility]) [address] [place] [address] Glucose [Mass/Vol] 218 mg/dL High 70-105 [facility] Comment on above: Order Comment: Waive d Testing in the ED is performed under the ED CLIA certificate #[id number]. Result Comment: leroy hammond Performed By: #### L [id number] #### [facility] ([facility]) [address] [place] [address] PROCALCITONIN TESTon 023 PROCALCITONIN IN BLOOD 0.04 ng/mL Normal 0.00-0.10 [facility] Comment on above: Result Comment: Susp [...] and initial PCT<0.5ng/mL Performed By: #### L [id number] ####[facility] ([facility])[address] [place] [address] RHEUMATOID FACTORon 08-02-20 23 Rheumatoid factor Qn [IU]/mL Normal 0-20 [facility] Comment on above: Performed By: #### L [id number] #### [facility] ([facility]) [address] [place] [address] RNA POLYMERASE III ANTIBODY IGGon 08-02-2023 RNA POLYMERASE III ANTIBODY, IGG 11 Units Normal 0-19 [facility] Comment on above: Result Comment: INTE [...] antibodies associated with SSc, including centromere, Scl-70, U3-CONTROL SUPERVISOR, PM/Scl, or Th/To. Performed By: [facility] [address] [place] [address] Hand Sign Writer: Saturnino Rai MD, PhD CLIA Number: [id number] Performed By: #### L [id number] ####[facility] ([place] [facility] [place], [place] [id number] SJOGRENS SYNDROME ANTIBODIES A AND Bon 08-02-2023 IVAN TO SSA (RO) ANTIBODY Negative Normal Negative [facility] Comment on above: Performed By: #### L [id number] #### [facility] ([facility]) [address] [place] [address] IVAN TO SSB ([place]) ANTIBODY Negative Normal Negative [facility] Comment on above: Performed By: #### L [id number] #### [facility] ([facility]) [address] [place] [address] STREP PNEUMONIAE ANTIGEN, UR INEon 08-02-2023 STREPTOCOCCUS PNEUMONIAE AG PRESENCE IN URINE Negative Normal Negative [facility] Comment on above: Performed By: #### L [id number] #### [facility] ([facility]) [address] [place] [address] TROPONIN Ion 08-02-2023 Troponin I.cardiac [Mass/Vol] 0.03 ng/mL Normal 0.00-0.04 [facility] Comment on above: Performed By: #### L [id number] ####[facility] ([facility])[address] [place] [address] 30on 08-01-2023 30 The patient is Moder [...] ensuring proper positioning, support, and education. Normal [facility] APTTon 08-01-2023 ACTIVATED PARTIAL THROMBOPLASTIN TIME IN PPP BY COAGULATION ASSAY 24.1 Seconds Low 25.0-35.0 [facility] Comment on above: Result Comment: Clin ical significance of the APTT is questionable in the presence of heparin. Performed By: #### L [id number] #### [facility] ([facility]) [address] [place] [address] ARTERIAL BLOOD GAS WITH CO-O XIMETRYon 08-01-2023 Base excess Calc (Bld) [Moles/Vol] 20.9 mmol/L High -2.0-3.0 [facility] Comment on above: Order Comment: bipap Performed By: #### L [id number] #### [facility] ([facility]) [address] [place] [address] CARBOXYHEMOGLOBIN/H EMOGLOBIN TOTAL % IN BLOOD 1.5 % Normal 0.0-3.0 [facility] Comment on above: Order Comment: bipap Performed By: #### L [id number] #### [facility] ([facility]) [address] [place] [address] CO2 (Bld) [Partial pressure] 58 mm[Hg] Critically high 35-48 [facility] Comment on above: Order Comment: bipap Performed By: #### L [id number] #### [facility] [[email or web address] ([facility]AKER) [address] [place] [address] DEOXYGENATED HEMOGLOBIN IN BLOOD 5.4 % High 1-5 [facility] Comment on above: Order Comment: bipap Performed By: #### L [id number] #### [facility] [[email or web address] ([facility]AKER) [address] [place] [address] FIO2 40 % Normal [facility] Comment on above: Order Comment: bipap Performed By: #### L [id number] #### [facility] ([facility]) [address] [place] [address] HCO3 (Bld) [Moles/Vol] 48.5 mmol/L High 21.0-28.0 [facility] Comment on above: Order Comment: bipap Performed By: #### L [id number] #### [facility] ([facility]) [address] [place] [address] Hemoglobin (Bld) [Mass/Vol] 18.3 g/dL Critically high 11.7-17.4 [facility] Comment on above: Order Comment: bipap Performed By: #### L [id number] #### [facility] ([facility]) [address] [place] [address] METHEMOGLOBIN/100 IN BLOOD 0.8 % Normal 0.0-1.5 [facility] Comment on above: Order Comment: bipap Performed By: #### L [id number] #### [facility] ([facility]) [address] [place] [address] Oxygen (Bld) [Partial pressure] 66 mm[Hg] Low 83-100 [facility] Comment on above: Order Comment: bipap Performed By: #### L [id number] #### [facility] [[email or web address] ([facility]AKER) [address] [place] [address] OXYGEN SATURATION (%) IN ARTERIAL BLOOD 94.5 % Normal 94.0-98.0 [facility] Comment on above: Order Comment: bipap Performed By: #### L [id number] #### [facility] ([facility]) [address] [place] [address] OXYGENATED HEMOGLOBIN IN BLOOD 92.3 % Normal 90.0-95.0 [facility] Comment on above: Order Comment: bipap Performed By: #### L [id number] #### [facility] ([facility]) [address] [place] [address] pH (Bld) 7.53 [pH] High 7.35-7.45 [facility] Comment on above: Order Comment: bipap Performed By: #### L [id number] #### [facility] ([facility]) [address] [place] [address] RESPIRATORY RATE 14 Normal [facility] Comment on above: Order Comment: bipap Performed By: #### L [id number] #### [facility] ([facility]) [address] [place] [address] SOURCE OF OXYGEN Bi-PAP Normal [facility] Comment on above: Order Comment: bipap Performed By: #### L [id number] #### [facility] ([facility]) [address] [place] [address] B-TYPE NATRIURETIC PEPTIDEon 08-01-2023 Natriuretic peptide B (Bld) [Mass/Vol] 145 pg/mL High 0-100 [facility] Comment on above: Performed By: #### L [id number] #### [facility] ([facility]) [address] [place] [address] BLOOD CULTUREon 08-01-2023 Bacteria identified Cx Nom (Bld) No growth at 5 days Normal [facility] Comment on above: Performed By: #### L [id number] #### [facility] ([facility]) [address] [place] [address] CBC WITH AUTO DIFFERENTIALon 08-01-2023 Basophils (Bld) [#/Vol] 0.02 10*3/uL Normal 0.00-0.20 [facility] Comment on above: Performed By: #### L [id number] #### [facility] ([facility]) [address] [place] [address] Basophils/100 WBC (Bld) 0.2 % Normal 0.0-1.0 [facility] Comment on above: Performed By: #### L [id number] #### [facility] ([facility]) [address] [place] [address] Eosinophils (Bld) [#/Vol] 0.01 10*3/uL Normal 0.00-0.50 [facility] Comment on above: Performed By: #### L [id number] #### [facility] ([facility]) [address] [place] [address] Eosinophils/100 WBC (Bld) 0.1 % Normal 0.0-6.0 [facility] Comment on above: Performed By: #### L [id number] #### [facility] ([facility]) [address] [place] [address] Erythrocyte distribution width (RBC) [Ratio] 13.2 % Normal 11.5-15.0 [facility] Comment on above: Performed By: #### L [id number] #### [facility] ([facility]) [address] [place] [address] ERYTHROCYTE MEAN CORPUSCULAR HEMOGLOBIN CONCENTRATION (G/DL) BY AUTOMATED 33.1 g/dL Normal 32.0-35.0 [facility] Comment on above: Performed By: #### L [id number] #### [facility] ([facility]) [address] [place] [address] Hematocrit (Bld) [Volume fraction] 54.1 % High 36.0-48.0 [facility] Comment on above: Performed By: #### L [id number] #### [facility] ([facility]) [address] [place] [address] Hemoglobin (Bld) [Mass/Vol] 17.9 g/dL High 12.0-15.0 [facility] Comment on above: Performed By: #### L [id number] #### [facility] ([facility]) [address] [place] [address] Immature granulocytes (Bld) [#/Vol] 0.10 10*3/uL Normal 0.00-0.20 [facility] Comment on above: Performed By: #### L [id number] #### [facility] [address] [place] [address] Immature granulocytes/100 WBC (Bld) 1.1 % High 0.0-1.0 [facility] Comment on above: Performed By: #### L [id number] #### [facility] ([facility]) [address] [place] [address] Lymphocytes (Bld) [#/Vol] 0.40 10*3/uL Low 1.20-4.00 [facility] Comment on above: Performed By: #### L [id number] #### [facility] ([facility]) [address] [place] [address] Lymphocytes/100 WBC (Bld) 4.2 % Low 20.0-45.0 [facility] Comment on above: Performed By: #### L [id number] #### [facility] ([facility]) [address] [place] [address] MCH (RBC) [Entitic mass] 30.6 pg Normal 27.0-33.0 [facility] Comment on above: Performed By: #### L [id number] #### [facility] ([facility]) [address] [place] [address] MCV (RBC) [Entitic vol] 92.5 fL Normal 82.0-98.0 [facility] Comment on above: Performed By: #### L [id number] #### [facility] [address] [place] [address] Monocytes (Bld) [#/Vol] 0.50 10*3/uL Normal 0.10-1.00 [facility] Comment on above: Performed By: #### L [id number] #### [facility] [address] [place] [address] Monocytes/100 WBC (Bld) 5.3 % Normal 5.0-12.0 [facility] Comment on above: Performed By: #### L [id number] #### [facility] ([facility]) [address] [place] [address] Neutrophils (Bld) [#/Vol] 8.47 10*3/uL High 1.60-7.60 [facility] Comment on above: Performed By: #### L [id number] #### [facility] ([facility]) [address] [place] [address] Neutrophils/100 WBC (Bld) 89.1 % High 40.0-72.0 [facility] Comment on above: Performed By: #### L [id number] #### [facility] ([facility]) [address] [place] [address] NRBC (PER 100 WBCS) BY AUTOMATED COUNT 0.0 % Normal 0 [facility] Comment on above: Performed By: #### L [id number] #### [facility] ([facility]) [address] [place] [address] PLATELETS (10*3/UL) IN BLOOD AUTOMATED COUNT 265 10*3/uL Normal 150-400 [facility] Comment on above: Performed By: #### L [id number] #### [facility] ([facility]) [address] [place] [address] RBC (Bld) [#/Vol] 5.85 10*6/uL High 3.80-5.00 [facility] Comment on above: Performed By: #### L [id number] #### [facility] ([facility]) [address] [place] [address] WBC (Bld) [#/Vol] 9.50 10*3/uL Normal 4.00-10.60 [facility] Comment on above: Performed By: #### L [id number] #### [facility] [address] [place] [address] COMPREHENSIVE METABOLIC PANE Matty 11-15-2023 Albumin [Mass/Vol] 3.5 g/dL Normal 3.5-5.7 [facility] Comment on above: Performed By: #### L [id number] #### [facility] ([facility]) [address] [place] [address] ALP [Catalytic activity/Vol] 54 U/L Normal 34-104 [facility] Comment on above: Performed By: #### L [id number] #### [facility] ([facility]) [address] [place] [address] ALT [Catalytic activity/Vol] 10 U/L Normal 7-52 [facility] Comment on above: Performed By: #### L [id number] #### [facility] ([facility]) [address] [place] [address] Anion gap [Moles/Vol] 10 mmol/L Normal 7-20 [facility] Comment on above: Performed By: #### L [id number] #### [facility] ([facility]) [address] [place] [address] AST [Catalytic activity/Vol] 8 U/L Low 13-39 [facility] Comment on above: Performed By: #### L [id number] #### [facility] ([facility]) [address] [place] [address] Bilirubin [Mass/Vol] 0.9 mg/dL Normal 0.3-1.0 [facility] Comment on above: Performed By: #### L [id number] #### [facility] ([facility]) [address] [place] [address] Calcium [Mass/Vol] 9.0 mg/dL Normal 8.6-10.3 [facility] Comment on above: Performed By: #### L [id number] #### [facility] ([facility]) [address] [place] [address] Chloride [Moles/Vol] 90 mmol/L Low 98-107 [facility] Comment on above: Performed By: #### L [id number] #### [facility] ([facility]) [address] [place] [address] CO2 [Moles/Vol] 40 mmol/L High 21-31 [facility] Comment on above: Performed By: #### L [id number] #### [facility] ([facility]) [address] [place] [address] Creatinine [Mass/Vol] 0.60 mg/dL Normal 0.60-1.20 [facility] Comment on above: Performed By: #### L [id number] #### [facility] ([facility]) [address] [place] [address] GLOMERULAR FILTRATION RATE ML/MIN/1.73 SQ M.PREDICTED 111.3 mL/min/1.73m*2 Normal >60.0 [facility] Comment on above: Result Comment: [facility]???s estimated glomerular filtration rate (eGFR) will [...] individuals. Performed By: #### L [id number] #### [facility] ([facility]) [address] [place] [address] Glucose [Mass/Vol] 280 mg/dL High 70-100 [facility] Comment on above: Performed By: #### L [id number] #### [facility] ([facility]) [address] [place] [address] Potassium [Moles/Vol] 3.5 mmol/L Normal 3.5-5.1 [facility] Comment on above: Performed By: #### L [id number] #### [facility] ([facility]) [address] [place] [address] Protein [Mass/Vol] 6.4 g/dL Normal 6.0-8.3 [facility] Comment on above: Performed By: #### L [id number] #### [facility] ([facility]) [address] [place] [address] Sodium [Moles/Vol] 136 mmol/L Normal 136-145 [facility] Comment on above: Performed By: #### L [id number] #### [facility] ([facility]) [address] [place] [address] Urea nitrogen [Mass/Vol] 27 mg/dL High 7-25 [facility] Comment on above: Performed By: #### L [id number] #### [facility] ([facility]) [address] [place] [address] UREA NITROGEN/CREATININE (MASS RATIO) IN SER/PLAS 45.0 Normal [facility] Comment on above: Performed By: #### L [id number] #### [facility] ([facility]) [address] [place] [address] CONSULTon 08-01-2023 CONSULT ----- ----- Attestation signed [...] PMH of Asthma, who presented intimally to [facility] on 07/25 due to SOB that [...] to 76 mmHg. She was transferred to [facility] [[email or web address]] for Right heart Catheterization. She reports being [...] likely d (more content not included)... Normal [facility] EXTRACTABLE NUCLEAR ANTIGEN ANTIBODIESon 08-01-2023 ANTI SM AB Negative Normal [facility] Comment on above: Performed By: #### L [id number] #### [facility] ([facility]) [address] [place] [address] ANTI SM/ANTIRNP AB Negative Normal [facility] Comment on above: Performed By: #### L [id number] #### [facility] ([facility]) [address] [place] [address] GRAM STAINon 08-01-2023 GRAM STAIN RESULT Normal [facility] Comment on above: Result Comment: Spec imen contains >25 Epithelial Cells/LPF, unsuitable for culture. Please submit a new specimen >25 Squamous Epithelial Cells Per Low Power Field >25 Polys Per Low Power Field Many Gram positive cocci in pairs Many Gram positive bacilli Performed By: #### L [id number] #### [facility] ([facility]ER) [address] [place] [address] HPon 08-01-2023 HP ----- ----- Attestation signed by Db Hicks MD at 08/02/2023 4:24 PM By using the attestations below, the signing clinician agrees that I have read and verify that the documentation has been personally reviewed by me and ensure that the documentation accurately reflects the encounter. GC: I personally saw this patient on the day of the encounter, performed the sakew portion(s) of the service and participated in [...] PMH of Asthma, who presented intimally to [facility] on 07/25 due to SOB that [...] to 76 mmHg. She was transferred to [facility] [[email or web address]] for Right heart Catheterization. She reports being [...] likely d (more content not included)... Normal [facility] ----- ----- Attestation signed by Lissette [...] Lynn Age - 47 y[facility] 1975 [id number] Date of Admission - 08/01/2023 1:47 AM Chief Complaint Initial presentation to [facility] with worsening shortness of breath, transferred to [facility] [[email or web address]] for right heart cath History of Present Illness 47-year-old female who presented to [facility] on 07/25 with 4 days of [...] following the patient's, who recommended transfer to [facility] [[email or web address]] for right heart cath. At [facility] Medication at [facility]: Tylenol, DuoNebs, Xanax, Lovenox for DVT prophylaxis, [...] for: PREALBUMIN, TSH, T3FREE, FREET4, CORTISOL, FEV1, IMA8PHM, DLCO, RVSP, HDL, LDL No results found for: [id number], IRON, (more content not included)... Normal [facility] MAGNESIUMon 08-01-2023 Magnesium [Mass/Vol] 1.9 mg/dL Normal 1.9-2.7 [facility] Comment on above: Performed By: #### L [id number] ####[facility] ([facility]AKER)[address] [place] [address] MPO/PR3 REFLEX TO ANCAon MYELOPEROXIDASE (MPO) AB, IGG 0 AU/mL Normal 0-19 [facility] Comment on above: Result Comment: INTE RPRETIVE INFORMATION: Myeloperoxidase Abs, IgG 19 AU/mL or Less ......... Negative 20-25 AU/mL .............. Equivocal 26 AU/mL or Greater ...... Positive Approximately 90% of patients with a P-ANCA pattern by IFA have antibodies specific for MPO. Performed By: #### L [id number] #### [facility] ([facility]ER) [address] [place] [address] SERINE PROTEINASE 3 (PR3) AB, IGG 1 AU/mL Normal 0-19 [facility] Comment on above: Result Comment: Myeloperoxidase [...] have antibodies specific for PR3. Performed By: [facility] [address] [place] [address] Hand Sign Writer: Saturnino Rai MD, PhD CLIA Number: [id number] Performed By: #### L [id number] #### [facility] ([facility]) [address] [place] [address] PHOSPHORUSon 08-01-2023 Magnesium [Mass/Vol] 3.8 mg/dL Normal 2.5-5.0 [facility] Comment on above: Performed By: #### L [id number] #### [facility] ([facility]) [address] [place] [address] POCT GLUCOSE METER UNSOLICIT ED RESULTSon 08-01-2023 Glucose [Mass/Vol] 310 mg/dL High 70-105 [facility] Comment on above: Order Comment: Waive d Testing in the ED is performed under the ED CLIA certificate #[id number]. Result Comment: ebol tz Performed By: #### L [id number] #### [facility] ([facility]) [address] [place] [address] Glucose [Mass/Vol] 233 mg/dL High 70-105 [facility] Comment on above: Order Comment: Waive d Testing in the ED is performed under the ED CLIA certificate #[id number]. Result Comment: [id number] Performed By: #### L [id number] #### [facility] ([facility]) [address] [place] [address] PROCALCITONIN TESTon 023 PROCALCITONIN IN BLOOD 0.03 ng/mL Normal 0.00-0.10 [facility] Comment on above: Result Comment: Susp [...] PCT<0.5ng/mL Performed By: #### L [id number] #### [facility] ([facility]AKER) [address] [place] [address] PROTIME-INRon 08-01-2023 INR IN PPP BY COAGULATION ASSAY 1.10 Normal 0.90-1.10 [facility] Comment on above: Result Comment: ACC [...] 1995;[id number]. Performed By: #### L [id number] #### [facility] ([facility]) [address] [place] [address] PROTHROMBIN TIME (PT) IN PPP BY COAGULATION ASSAY 14.3 Seconds Normal 12.3-14.8 [facility] Comment on above: Performed By: #### L [id number] #### [facility] ([facility]) [address] [place] [address] TROPONIN Ion 08-01-2023 Troponin I.cardiac [Mass/Vol] 0.02 ng/mL Normal 0.00-0.04 [facility] Comment on above: Performed By: #### L [id number] #### [facility] ([facility]) [address] [place] [address] [id number] 04-18-2020 SARS-CoV-2 Not Detected Normal Not Detected [facility] Comment on above: Result Comment: (NOT E) This test was developed and its performance characteristics determined by [employer]. This test has not been FDA cleared [...] detected) result in this assay. Performed At: [facility] [address] [facility] [place] [id number] Felisha Martinez MD Ph:[phone] Performed By: #### A COV #### [facility] [address] [place] [address] [employer] Manager: Lonnie Lozano MD Encounters Encounter Date Encounter Type Care Provider Facility Start: 10-29-2023 End: 10-29-2023 ambulatory [facility] Start: 10-10-2023 Evaluation and management of inpatient [facility] Start: 10-10-2023 Evaluation and management of inpatient [facility] Start: 10-09-2023 Evaluation and management of inpatient [facility] Start: 10-09-2023 ambulatory [facility] Start: 10-09-2023 End: 10-10-2023 Evaluation and management of inpatient [facility] Start: 09-04-2023 End: 09-04-2023 ambulatory [facility] Start: 08-29-2023 End: 08-30-2023 ambulatory [facility] Start: 08-28-2023 End: 08-28-2023 ambulatory [facility] Start: 08-08-2023 Evaluation and management of inpatient CARLEY GOODRICH [facility] Start: 08-07-2023 Evaluation and management of inpatient VENTURA ARAUJO [facility] Start: 08-07-2023 Evaluation and management of inpatient DB HICKS [facility] Start: 08-02-2023 Evaluation and management of inpatient MCLAUGHLIN ANA [facility] Start: 08-02-2023 ambulatory MCLAUGHLIN ANAKESHAWN DELGADO [facility] Start: 08-02-2023 Evaluation and management of inpatient MCLAUGHLIN ANA DELGADO [facility] Start: 08-02-2023 Evaluation and management of inpatient MCLAUGHLIN ANA DELGADO [facility] Start: 08-01-2023 End: 08-09-2023 Evaluation and management of inpatient OLMAN MARISCAL [facility] Start: 04-15-2020 End: 04-16-2020 Patient encounter procedure BRANDIE PACHECO [facility] Start: 04-15-2020 End: 04-15-2020 Subsequent hospital visit by physician Priyanka Covid Screening Schedule [facility] Covid Screening Comment on above: Arrived Procedures Date Procedure Procedure Detail Performing Clinician Start: 04-15-2020 COVID-19 AMBULATORY SREEKANTH ZULUAGA Plan of Treatment Date Care Activity Detail Author Start: 05-18-2020 Influenza vaccination Flu vaccine (# 1) [place], [place] Start: 2015 Lipid panel Lipid screen [place], [place] Start: 1996 Screening for malign ant neoplasm of cervix Cervical cancer screen [place], [place] Start: 1994 DTaP/Tdap/Td vaccine (1 - Tdap) DTaP/Tdap/Td vaccine (1 - Tdap) [place], [place] Start: 1990 HIV screening HIV screen [place], [place] End: 04-15-2020 Covid-19 Ambulatory Covid-19 Ambulatory Lab Routine Once for 1 Occurrences starting 04/15/2020 until 04/15/2020 [place], [place] Comment on above: Once for 1 Occurrenc es starting 04/15/2020 until 04/15/2020 Covid-19 Ambulatory Covid-19 Amb ulatory Lab Routine 04/15/2020 6:59 AM EDT [place], [place] Payers Date Payer Category Payer Private Health Insurance [id number] 2014 Unknown [id number] 2014 Unknown [employer] M [employer] [address] [id number] 2014-Present [phone] [address] [place] [address] [id number] 1975 Unknown [id number] Social History Date Type Detail Facility Tobacco smoking status WVIS Unknown if ev er smoked [place], [place] Sex Assigned At Not on file [place], [place] Clinical Notes 08-02-2023 to 10-29-2023 Note Date & Type Note Facility 10-29-2023 Note [facility] Subjective Daniel Lynn is a [...] evidence of ostium secundum ASD with significant aqgn-yf-tqjmw shunting across it, severe pulmonary hypertension and [...] pulmonary AV malformation or other source of xvlp-qk-ljldm shunting. She was started on therapy with [...] mg) by aubrie (more content not included)... [facility] 10-10-2023 Note Patient discharged w ith copy of AVS. IV removed, all belongings with patient. Patient provided post cath discharge instructions. All questions and concerns addressed. [facility] 10-10-2023 Note 10/10/23 1047 Admission Assessment [...] Discharge? Yes Does the patient have a transplant case manager assigned to them through their insurance? Yes [...] link and activate MyChart? MyChart already active [facility] 10-09-2023 Note Patient: Daniel bernstein Procedure Information Date/Time: 10/09/23 1300 Procedure: Atrial septal defect closure Location: [facility] [[email or web address]] PACKER FUSER 3 / [facility] ([facility]) Providers: Chris Roger [...] Plan discussed with attending. Additional Equipment Requests [facility] 08-28-2023 Note [facility] Subjective Daniel Lynn is a 47 y.o. year old female patient being seen for follow up [facility] [[email or web address] Says her insurance will only pay for [...] evidence of ostium secundum ASD with significant eqkr-kg-iophd shunting across it, severe pulmonary hypertension and [...] pulmonary AV malformation or other source of cfhg-pf-tppkz shunting. She was started on therapy with [...] 0.42 (L) 08/09/2023 (more content not included)... [facility] 08-09-2023 Note Called the [facility] for home [phone] and faxed script /f2f [phone] They are able to set up home . Patient given tank and advised to call [facility] once home( in route) Received fax, on phone with rep at [facility]. Received confirmation they have order and will set up for patient, [facility] 08-09-2023 Note Met with Patient bed [...] arrangements. Medical team notified of Pt decision [facility] 08-09-2023 Note Hospital Medicine Discharge Summary Final Discharge Diagnosis: Acute hypoxic respiratory failure, likely due to Pulmonary Hypertension Large secundum ASD with bidirectional flow. The largest septal defect measured 3.5 cm, confirmed by Cardiac MRI & MATT New onset DM-II Admission Diagnosis: Dyspnea on exertion [R06.09] Hospital course: 47-year-old female who presented to [facility] on 07/25 with 4 days of [...] following the patient's, who recommended transfer to [facility] [[email or web address]] for right heart cath. At [facility] Medication at [place] [facility]: Tylenol, DuoNebs, Xanax, Lovenox for DVT prophylaxis, [...] COVID-pneumonia. Patient was transferred to medical ICU [facility] for hypoxic respiratory failure likely due [...] Center 08/28/2023 2:15 PM Chris Roger MD [facility] Your medication list [...] Medications These medications were sent to [id number] [place], [place] - [address] [facility] [address] [facility], [facility] [address] furosemide 40 mg tablet insulin detemir (more content not included)... [facility] 08-09-2023 Note ------ Attestation signed by Kvng Kumar MD at 08/09/2023 11:18 PM I reviewed the salient portions of the patient history. Agree with the noted assessment and plan. Kvng Kumar MD [facility] Pulmonary and Critical Care Medicine ------ [...] Date Asthma COPD (chronic obstructive pulmonary disease) ([facility]) Diabetes mellitus ([facility]) Hypertension MTHFR gene mutation Obesity Allergies Allergen [...] shifts: In: 1 (more content not included)... [facility] 08-09-2023 Note 08/09/23 0920 Home Oxygen Therapy Evaluation Pulse Oximetry on room air at Rest 94 Pulse Ox on O2 with nasal cannula while at rest 94 (3 lpm) Pulse Ox on room air while walking 84 Pulse Ox on O2 with nasal cannula while walking 94 (3 lpm) Patient Qualification for home oxygen Qualifies Patient qualifies for home oxygen 3 lpm. [facility] 08-08-2023 Note Hospital Medicine Daily Progress Note - 08/08/2023 1:15 PM; Room: [facility]- Admission: 08/01/2023 1:47 AM; Length of stay: 7 days THE HOSPITALIST TEAM PREFERS TO USE [employer] FOR COMMUNICATION 7AM-7PM. IF I DO NOT RESPOND WITHIN 15 MINUTES, PLEASE PAGE ME/CALL THROUGH THE TOOL FILER. FROM 7PM-7AM, PLEASE PAGE [phone](COVR) Code Status: Full Code Barriers to Discharge: [...] TSH 0.56 08/03/2023 No results found for: RCOYBGSD33, IRON, TIBC, C3, C4, PHANI, CANCA, ASO, [...] vascular detail. FI (more content not included)... [facility] 08-08-2023 Note Nutrition Screening Assessment: Patient [...] Comments: Entree salad, tomato, cucumber, ranch and swedish dressing, diet coke, quesadilla with grilled chicken [...] with questions and contact the dietitian via [employer] 8A-4P Sunday-Sunday. Or call the dietitian's office at extension [phone]. For weekends/holidays, the dietitian's can be reached by paging [phone] from 9A-3P. Unable to be reached via [employer] on Sunday & .) [facility] 08-08-2023 Note ------ Attestation signed by Raza Leonard MD at 08/08/2023 12:46 PM I reviewed the salient portions of the patient history. I have seen and examined the patient during rounds with the resident/fellow. I repeated the askew components of the exam. Agree with the noted assessment and plan. Raza Leonard MD [facility] Pulmonary interventional and Critical Care Medicine [...] Date Asthma COPD (chronic obstructive pulmonary disease) ([facility]) Diabetes mellitus ([facility]) Hypertension MTHFR gene mutation Obesity Allergies Allergen [...] MSK: no my (more content not included)... [facility] 08-08-2023 Note Occupational Therapy Occupational Therapy [...] Spouse, Daughter, Son Home Adaptive Equipment: (gb, [facility], pulseoximeter) Home Layout: Two level, Able to live on main level with bedroom/bathroom Home Access: Stairs to enter with rails Entrance Stairs-Rails: Right Entrance Stairs-Number of Steps: (2) Bathroom Shower/Tub: Tub/shower unit Prior Level of Function Prior Function Level of [place]: Independent with ADLs and functional transfers, Independent [...] Eating meals?: None (Independent) Total Score OT [facility]: 24 Assessment/Plan OT Assessment OT Education/Comments: may benefit to use shower chair, brief discussion about ws/ec/pacing with good verbal return Plan OT Plan: No skilled OT Equipment Recommended: (ssc) OT - Discharge Recommendations Placed: Yes OT Goals Multi-Disciplinary Problems (from Occupational Therapy) Active Problems Not on file [facility] 08-08-2023 Note ------ Attestation signed by [...] Transesophageal Echo (MATT) Result Date: 08/07/2023 1 [facility] [[email or web address]] Heart Station [address] [place] [address] [phone] (fax) Transesophageal Echocardiogram-[facility] [[email or web address]] Name: DANIEL LYNN Study Date: 08/07/2023 04:01 PM B/P: 124 mmHg/80 mmHg HR: 97 bpm Date of : 1975 Location: [facility] [[email or web address]] Height: 62 in. Age: 47 year(s) Patient Room: 3233 Weight: 268 lb. Gender: Female Patient Status: InPt BSA: 2.16 m2 Indication: pre-op ASD Examination: MATT/Limited Doppler/CFI, 3D images Image Quality: Good Patient Consent: Informed, written consent was obtained for the procedure Exam Location: A MATT was performed in the [facility] without complications Anesthesia Pharyngeal anesthesia with viscous [...] aortic valve regurgi (more content not included)... [facility] 08-07-2023 Note Patient: Daniel Pitts er Procedure Information Date/Time: 08/07/23 1000 Procedures: Coronary angiography Right heart cath Location: [facility] [[email or web address]] PACKER FUSER 2 BIPLANE / [facility] (Cath) Providers: Chris Roger [...] with fellow and attending. Additional Equipment Requests [facility] 08-07-2023 Note H&P reviewed. RHC an d cardiac CT c/w PH and ASD. Plan for RHC/coronary angiogram for assessment of ASD closure. Procedures' details, risks and benefits discussed with the patient and she's agreeable. 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 [facility] 08-07-2023 Note ------ Attestation signed by [...] Bubble Study Result Date: 08/02/2023 1 1 [facility] [[email or web address]] Heart Station [address] [place] [address] [phone] (fax) Echocardiogram-[facility] [[email or web address]] Name: DANIEL LYNN Study Date: 08/02/2023 09:04 AM B/P: 121 mmHg/88 mmHg HR: 66 bpm Date of : 1975 Location: [facility] [[email or web address]] Height: 62 in. Age: 47 year(s) Patient [...] tricuspid valve debora (more content not included)... [facility] 08-07-2023 Note ------ Attestation signed by Kvng Kumar MD at 08/07/2023 11:57 PM I reviewed the salient portions of the patient history. I have seen and examined the patient during rounds with the resident/fellow. I repeated the askew components of the exam. Agree with the noted assessment and plan. Kvng Kumar MD [facility] Pulmonary and Critical Care Medicine ------ Medical ICU Progress Note Patient - Daniel Lynn Age - 47 y.o. - 1975 [facility] # - [id number] Date of Admission - 08/01/2023 1:47 AM HPI/Hospital Course Subjective 47-year-old female who presented to [facility] on 07/25 with 4 days of [...] following the patient's, who recommended transfer to [facility] [[email or web address]] for right heart cath. At [facility] Medication at [place] [facility]: Tylenol, DuoNebs, Xanax, Lovenox for DVT prophylaxis, [...] COVID-pneumonia. Patient was transferred to medical ICU [facility] for hypoxic respiratory failure likely due [...] 24 hours) at (more content not included)... [facility] 08-06-2023 Note ------ Attestation signed by [...] Bubble Study Result Date: 08/02/2023 1 1 [facility] [[email or web address]] Heart Station [address] [facility]. [place] [id number] [phone] (fax) Echocardiogram-[facility] [[email or web address]] Name: DANIEL LYNN Study Date: 08/02/2023 09:04 AM B/P: 121 mmHg/88 mmHg HR: 66 bpm Date of : 1975 Location: [facility] [[email or web address]] Height: 62 in. Age: 47 year(s) Patient [...] Global left ventricu (more content not included)... [facility] 08-06-2023 Note ------ Attestation signed by Lissette Delgado MD at 08/06/2023 1:19 PM I personally saw and examined the patient on the same date of service as resident/fellow Cici Villareal MD . I discussed the findings and therapeutic plan with the resident/fellow iCci Villareal MD . I agree with the [...] Lynn Age - 47 y.[facility]. [facility] 1975 [id number] Date of Admission - 08/01/2023 1:47 AM HPI/Hospital Course Subjective 47-year-old female who presented to [facility] on 07/25 with 4 days of [...] following the patient's, who recommended transfer to [facility] [[email or web address]] for right heart cath. At [facility] Medication at [place] [facility]: Tylenol, DuoNebs, Xanax, Lovenox for DVT prophylaxis, [...] COVID-pneumonia. Patient was transferred to medical ICU [facility] for hypoxic respiratory failure likely due [...] Decrease breath sounds (more content not included)... [facility] 08-05-2023 Note Subjective Daniel Lynn is a 47 y.o. female with PMH of Asthma and Obesity who was initially evaluated in [place] on 07/25 with with 4 days of [...] the patient and they recommended transfer to [facility] [[email or web address]] for right heart catherization. She arrived to [facility] [[email or web address]] 08/01 where she was admitted to the [...] Neurological: Mental Stat (more content not included)... [facility] 08-05-2023 Note Subjective Daniel Lynn is a 47 y.o. female with PMH of Asthma and Obesity who was initially evaluated in [place] on 07/25 with with 4 days of [...] the patient and they recommended transfer to [facility] [[email or web address]] for right heart catherization. She arrived to [facility] [[email or web address]] 08/01 where she was admitted to the [...] Neurological: Mental Stat (more content not included)... [facility] 08-05-2023 Note Cardiology Progress Note Subjective [...] Bubble Study Result Date: 08/02/2023 1 1 [facility] [[email or web address]] Heart Station [address] [place] [address] [phone] (fax) Echocardiogram-[facility] [[email or web address]] Name: DANIEL LYNN Study Date: 08/02/2023 09:04 AM B/P: 121 mmHg/88 mmHg HR: 66 bpm Date of : 1975 Location: [facility] [[email or web address]] Height: 62 in. Age: 47 year(s) Patient [...] thickness is mildl (more content not included)... [facility] 08-05-2023 Note ------ Attestation signed by [...] We will obtain a baseline PCO2, and fisher pot PCO2 without using BiPAP, to see if we can qualify her for BiPAP at home. Clinically patient is at very high risk for obstructive sleep apnea , and also have consistent history. ------ Medical ICU Progress Note Patient - Daniel Lynn Age - 47 y.[facility]. [facility] 1975 [id number] Date of Admission - 08/01/2023 1:47 AM HPI/Hospital Course Subjective 47-year-old female who presented to [facility] on 07/25 with 4 days of [...] following the patient's, who recommended transfer to [facility] [[email or web address]] for right heart cath. At [facility] Medication at [place] [facility]: Tylenol, DuoNebs, Xanax, Lovenox for DVT prophylaxis, [...] COVID-pneumonia. Patient was transferred to medical ICU [facility] for hypoxic respiratory failure likely due [...] via nasal cannula. (more content not included)... [facility] 08-04-2023 Note ------ Attestation signed by [...] Bubble Study Result Date: 08/02/2023 1 1 [facility] [[email or web address]] Heart Station [address] [place] [address] [phone] (fax) Echocardiogram-[facility] [[email or web address]] Name: DANIEL LYNN Study Date: 08/02/2023 09:04 AM B/P: 121 mmHg/88 mmHg HR: 66 bpm Date of : 1975 Location: [facility] [[email or web address]] Height: 62 in. Age: 47 year(s) Patient [...] Value Normal Value (more content not included)... [facility] 08-04-2023 Note ------ Attestation signed by [...] Course Subjective 47-year-old female who presented to [facility] on 07/25 with 4 days of [...] following the patient's, who recommended transfer to [email or web address]] for right heart cath. At [facility] Medication at [place] [facility]: Tylenol, DuoNebs, Xanax, Lovenox for DVT prophylaxis, [...] COVID-pneumonia. Patient was transferred to medical ICU [facility] for hypoxic respiratory failure likely due [...] is 112/76 a (more content not included)... [facility] 08-03-2023 Note ------ Attestation signed by [...] Lynn Age - 47 y.o. [facility] 1975 [id number] Date of Admission - 08/01/2023 1:47 AM HPI/Hospital Course Subjective 47-year-old female who presented to [facility] on 07/25 with 4 days of [...] following the patient's, who recommended transfer to [facility] [[email or web address]] for right heart cath. At [facility] Medication at [place] [facility]: Tylenol, DuoNebs, Xanax, Lovenox for DVT prophylaxis, [...] COVID-pneumonia. Patient was transferred to medical ICU [facility] for hypoxic respiratory failure likely due [...] move all extremities, (more content not included)... [facility] 08-03-2023 Note ------ Attestation signed by [...] Bubble Study Result Date: 08/02/2023 1 1 [facility] [[email or web address]] Heart Station [address] [place] [address] [phone] (fax) Echocardiogram-[facility] [[email or web address]] Name: DANIEL LYNN Study Date: 08/02/2023 09:04 AM B/P: 121 mmHg/88 mmHg HR: 66 bpm Date of : 1975 Location: [facility] [[email or web address]] Height: 62 in. Age: 47 year(s) Patient [...] severely enlarged. Se (more content not included)... [facility] 08-02-2023 Note Patient: Daniel rizvi Procedure Information Date/Time: 08/02/23 1610 Procedure: Right heart cath Location: [facility] [[email or web address]] PACKER FUSER 3 / [facility] (Cath) Providers: Chris Roger [...] with fellow and attending. Additional Equipment Requests [facility] 08-02-2023 Note Pharmacy Dosing Serv ice - Vancomycin Initial Consult Note Pharmacy has been consulted for the dosing and evaluation of Drug: Vancomycin Indication: pneumonia AUC 400-600 mg*hr/L and trough 10-20 mcg/mL Other Antimicrobial Regimens: cefepime 2g q8h Labs and Renal Function Total body weight: 122 kg (268 lb 8.3 oz) [place] body weight: 50.1 kg (110 lb 7.9 [...] Assessment / Comments: - 47yoF transferred to [email or web address]] from [facility]SH and admitted to ICU 08/01 for acute hypoxic respiratory failure likely due to severe pulmonary hypertension and potential pneumonia. Viral panel at OSH positive for rhinovirus. Procal upon admission to [facility] [[email or web address]] 0.03. WBC increased from 9.5 to 12.17. [...] 08/02/23 Plan discussed with Betsy Eckert PharmD [facility] 08-02-2023 Note ------ Attestation signed by [...] additional personal documentation from me. Plan for [facility] today ------ Cardiology Progress Note Subjective Subjective: [...] Neva Portillo MD PGY-2 Internal Medicine Resident [facility] 08-02-2023 Note ------ Attestation signed [...] mEq/L Final No results found for: PHVEN, DMH0IEG, PO2VEN, HKL6OOY, IONCALVEN CBC: Results from last 7 days [...] Infusions: As Need (more content not included)... 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 [employer] provides no warranty or guarantee of the accuracy or completeness of information in this document.
--- NOTE | 2023-11-08 09:09 | CA_ITS ---
Patient Name: DANIEL LYNN MR#: [id number] : 1975 Exam Date: 11/08/2023 Ordering Doctor: DR CHRIS FLOREZ M.D. 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 DESCRIPTION: COMPLETE ECHOCARDIOGRAM Real-time transthoracic echocardiography with 2D, M-mode, spectral and color flow Doppler performed. QUALITY: Technical quality was adequate. LEFT VENTRICLE: Normal chamber size. Borderline left ventricular hypertrophy. Global left ventricular systolic function is normal. LV EF: Calculated left ventricular ejection fraction is 58% DIASTOLIC: Grade I diastolic dysfunction. ATRIAL SEPTUM: Agitated saline contrast does not reveal an intra-cardiac shunt. Atrial septal closure device appears intact. LEFT ATRIUM: Mild dilatation. RIGHT ATRIUM: Severe dilatation. RIGHT VENTRICLE: Moderate to severe dilatation. Mildly decreased right ventricular systolic function. TRICUSPID VALVE: Normal mobility and thickness. No stenosis with trivial regurgitation. Severe pulmonary hypertension. RVSP 70 mmHg MITRAL VALVE: Normal mobility and thickness. No evidence of mitral valve stenosis. Mild mitral annular calcification. Trivial mitral regurgitation. AORTIC VALVE: Normal trileaflet appearance. No visible sclerosis. Normal leaflet mobility. No evidence of aortic valve stenosis. No aortic regurgitation. AORTIC ROOT: Normal diameter and appearance. PULMONIC VALVE: Thickened valve with normal mobility. No stenosis. Mild regurgitation. PERICARDIUM: No evidence of pericardial effusion. IVC: Collapses with inspirations. Normal size PLEURA: CONCLUSION: 1. Normal left ventricular systolic function. LVEF is estimated at 55 to 60%. 2. Moderate to severe right ventricular dilatation with mildly reduced systolic function. 3. Severe right atrial dilatation. 4. No significant valvular dysfunction. 5. Severely elevated right-sided pressures. RVSP is 70 mmHg. 6. Atrial septal closure device is well-seated with no intracardiac shunt by agitated saline contrast injections with the Valsalva maneuver. Adult Echocardiography Procedure Report Left Ventricle LVEDD (3.7 - 5.6 cm): 4.91 cm LVESD (2.2 - 4.0 cm): 3.44 cm LVIVS thickness (0.6 - 1.2 cm): 1.08 cm LVPW thickness (0.5 - 1.0 cm): 1.03 cm e': 0.10 m/s E - e': 8.98 LVOT Max Gradient: 4.15 mm[Hg] LVOT Area (cm2): 1.02 m/s Peak Velocity (LVOT): 1.02 m/s Mean Velocity (LVOT): 0.66 m/s LVOT Diameter 1.90 cm Left Ventricular Ejection Fraction: 57.59 % Left Atrium LA Volume Index (2D A2C): 36.46 ml/m2 Left Atrium Systolic Dimension: 4.72 cm Mitral Valve MV E to A Ratio: 0.92 Mitral Valve A-Wave Peak Velocity: 1.00 m/s Mitral Valve E-Wave Peak Velocity: 0.93 m/s Right Ventricle RV Internal Diastolic Dimension: 4.63 cm Aorta AO Root Diam: 2.73 cm Ascending Ao Diam: 2.89 cm Aortic Valve AoV Area (Peak Armen): 1.97 cm2, 1.97 cm2 AoV Area (VTI): 1.90 cm2, 1.90 cm2 Peak Velocity(Antegrade Flow): 1.46 m/s Peak Gradient(Antegrade Flow): 8.48 mm[Hg] Mean Velocity(Antegrade Flow): 1.04 m/s Mean Gradient(Antegrade Flow): 4.76 mm[Hg] Velocity Time Integral: 30.54 cm Tricuspid Valve Peak Velocity (Regurgitant Flow): 2.78 m/s, 3.12 m/s, 3.02 m/s, 4.02 m/s Pulmonic Valve Mean Gradient: 6.50 mm[Hg], 5.57 mm[Hg] Mean Velocity: 1.22 m/s, 1.09 m/s Peak Velocity: 1.76 m/s Peak Gradient: 12.70 mm[Hg], 12.00 mm[Hg] Right Atrium Right Atrium Systolic Pressure: 117.92 ml, 117.92 ml Dictated by: Chris Florez M.D. on 11/08/2023 at 13:05 Approved by: Chris Florez M.D. on 11/08/2023 at 13:10
== END 2023-11-08 07:00 | disposition home or self-care (01) ==
LOC: CARD 07:00
PROVIDERS: PCP Family Medicine; Visit Provider Internal Medicine Interventional Cardiology
DX: Q21.10 Atrial septal defect, unspecified (principal); Z87.74 Personal history of (corrected) congenital malformations of heart and circulatory system; I27.29 Other secondary pulmonary hypertension; Q24.9 Congenital malformation of heart, unspecified
CPT/HCPCS: 93306

== ENCOUNTER 2024-02-18 08:05 | Outpatient (OUT) | payer OTHER, SELFPAY ==
--- OUTSIDE RECORDS SUMMARY | 2024-02-18 08:14 | XMS_ITS | CCD ---
Author Organization [facility] Care Team Providers Care Demographic Analyst Name Role Phone BRANDIE PACHECO Referring Unavailable FAVIO SANTIAGO Primary Care Unavailable Favio Santiago Primary Care Provider [phone] LISSETTE DELGADO Referring Unavailable AMERICOCARLEY Referring Unavailable MOUKARBEL, CHRIS Referring Unavailable ALI, LISSETTE PEREZ Referring Unavailable ALI, LISSETTE PEREZ Referring Unavailable FABIDB Parekh Referring Unavailable MOUKARBEL, CHRIS Admitting Unavailable MOUKARBEL, CHRIS Attending Unavailable ALI, LISSETTE PEREZ Referring Unavailable MOUKARBEL, CHRIS Referring Unavailable MOUKARBEL, CHRIS Referring Unavailable MOUKARBEL, CHRIS Referring Unavailable MOUKARBEL, CHRIS Referring Unavailable ALI, LISSETTE PEREZ Referring Unavailable MOUKARBEL, CHRIS Attending Unavailable MOUKARBEL, CHRIS Referring Unavailable ARAUJOVENTURA Referring Unavailable MOUKARBEL, CHRIS Attending Unavailable MOUKARBEL, CHRIS Admitting Unavailable MOUKARBEL, CHRIS Attending Unavailable AMERICO, CARLEY Attending Unavailable DAVEYOLMAN Referring Unavailable ALI, MCL[place] ANA Consulting Unavailable ALI, MCL[place]IN ANA Admitting Unavailable GILBERT, KVNG Consulting Unavailable MOUKARBEL, CHRIS Referring Unavailable ALI, MCLAUGHLINASHLEY PEREZ Referring Unavailable Allergies Allergy Classification Reported Allergen(s) Allergy Type Date of Onset Reaction(s) Facility (1 source) Lisinopril; Translations: [LISINOPRIL] Drug Allergy 08-01-20 [facility] Repository (1 source) Penicillins; Translations: [PENICILLINS] Propensity to adverse reactions to drug (disorder) 08-01-20 [facility] Repository (1 source) Sulfamethoxazole / Trimethoprim; Translations: [SULFAMETHOXAZOLE-TR IMETHOPRIM] Drug Allergy 08-01-20 [facility] Rep[facility] Problems Active Problems Problem Classification [...] sources) Hypoxemia; Translations: [Hypoxemia] Onset: 08-28-2023 Episodic Pulmonary heart disease (4 sources) Other secondary pulmonary hypertension; Translations: [Pulmonary hypertension, unspecified] Onset: 08-01-2023 Chronic Unclassified (1 source) Atrial septal defect, unspecified; Translations: [Atrial septal defect, unspecified] Onset: 10-10-2023 Unclassified (1 source) Secundum atrial septal defect; Translations: [Secundum atrial septal defect] Onset: 08-29-2023 Past or Other Problems Problem Classification Problem Date Documented Da te Episodic/Chronic Other lower respiratory disease (2 sources) Other forms of dyspnea; Translations: [Other forms of dyspnea] Onset: 08-01-2023 Episodic Unclassified (1 source) Atrial septal defect, unspecified; Translations: [Atrial septal defect, unspecified] Onset: 10-09-2023 Unclassified (1 source) Secundum atrial septal defect; Translations: [Secundum atrial septal defect] Onset: 08-29-2023 Results Test Name Value Interpretation Reference Range Facility Orders Onlyon 11-06-2023 Orders Only [id number] Shelly Lynn 1975 F Date Provider Department Center 11/06/2023 CURT CRUMP [facility]XMI [facility] No family history on file Normal [facility] Office Visiton 10-29-2023 Follow-up visit [id number] Shelly Lynn 1975 F Date Provider Department Center 10/29/2023 CHRIS CANNON [facility]XMI [facility] No family history on file Level of Service:75420 [place] OFFICE/OUTPATIENT ESTABLISHED MOD MDM 30 MIN Normal [facility] 30on 10-10-2023 30 The patient is [...] and behaviors that affect risk of falls [place] fall precautions as indicated by assessment Educate patient/family on patient safety, including physical limitations Problem: Discharge Planning Goal: Discharge to home or other facility with appropriate resources Outcome: Progressing Problem: Chronic Conditions and Co-morbidities Goal: Patient's chronic conditions and co-morbidity symptoms are monitored and maintained or improved Outcome: Progressing Normal [facility] 30 The patient is Moder ately [...] and behaviors that affect risk of falls [place] fall precautions as indicated by assessment Educate [...] and prevent overall improvement and discharge Normal [facility] DSon 10-10-2023 DS ----- ----- Attestation signed by Chris Florez MD at 10/10/2023 4:49 PM I discussed [...] a large atrial septal defect and significant lzix-sq-pofeq shunting across it, enlarged right-sided chambers, and [...] mg daily, unless otherwise directed by Dr. Florez. Some oozing from left femoral access site reported from nursing overnight. Resolved with manual pressure. Access sites (left and right fem) examined on 10/10/23, soft without hematoma, pulses palpable, no oozing. Dressings removed, no ecchymosis, mild tenderness with palpation. Hemoglobin/hematocrit stable, 13.7 g/dL/41.2 %. Chest Xray and follow up echocardiogram performed 10/10. Echocardiogram reviewed by Dr. Florez, manager web application, and without concerning findings. Patient cleared for [...] month with echocardiogram. Dear Dr. Jack MD, Daniel is advised to follow up with you within 1-2 weeks. Follow-up with: Cardiology Scheduled appointments: Future Appointments Date Time Provider Department Center 10/29/2023 2:45 PM Chris Florez MD [facility] Your medication list START taking [...] Medications These medications were sent to [facility] [place], [place] - [address], [facility] [address] clopidogrel 75 mg tablet Daniel is allergic [...] are c (more content not included)... Normal [facility] HEMOGLOBIN AND HEMATOCRIT, B Naomy 10-10-2023 Hematocrit (Bld) [Volume fraction] 41.2 % Normal 36.0-48.0 [facility] Comment on above: Performed By: #### L [id number] #### [facility] ([facility]AKER) [address] [place] [address] Hemoglobin (Bld) [Mass/Vol] 13.7 g/dL Normal 12.0-15.0 [facility] Comment on above: Performed By: #### L [id number] #### [facility] ([facility]ER) [address] [facility] [place] [address] HPon 10-09-2023 HP History Of Present Illness Daniel Lynn is a 48 y.o. female is here today for her scheduled ASD closure. She was initially seen on on 08/01/2023 with acute respiratory failure and hypoxia in hospital. Investigation revealed evidence of ostium secundum ASD with significant vocg-fn-eaofh shunting across it, severe pulmonary hypertension and [...] pulmonary AV malformation or other source of csci-ch-akusi shunting. She was started on therapy with [...] Diabetes mellitus (CMS/HCC), Hypertension, MTHFR gene mutation, Obesity, and Sleep [...] to se (more content not included)... Normal [facility] NURSNOTEon 10-09-2023 NURSNOTE Report given to Jo keita RN from [facility] SNEED Any medications or safety alerts were reviewed. Any pending diagnostics and notifications were also reviewed, as well as any safety concerns or issues, abnormal labs, abnormal imagining, and abnormal assessment findings. Questions were answered. Normal [facility] NURSNOTE Updated Dr Florez regarding IVF order. V.O. to hold IVF for now. [facility] Orders Onlyon 10-03-2023 Orders Only [id number] Shelly Lynn 1975 F Date Provider Department Center 10/03/2023 Ngoc-LATASHA BARNEY [facility] No family history on file [facility] Prep for Procedureon 024 Prep for Procedure [id number] Sehlly Lynn sti J 1975 F Date Provider Department Center 09/25/2023 166-SHIRA MCDANIELS [facility] No family history on file [facility] Prep for Procedureon 023 Prep for Procedure [id number] Shelly Lynn sti J 1975 F Date Provider Department Center 08/30/2023 CHRIS CANNON [facility] [place] Count No family history on file [facility] Office Visiton 08-28-2023 Follow-up visit [id number] Shelly Lynn 1975 F Date Provider Department Center 08/28/2023 CHRIS CANNON [facility] No family history on file Level of Service:[address] [place] OFFICE/OUTPATIENT ESTABLISHED HIGH MDM 40-54 MIN [facility] 30on 08-09-2023 30 Narrow Gauge Brakeman received VM f or patient stating she needs assistance with the medications she was discharged with. Narrow Gauge Brakeman reached out to patient who states that her INS will only cover 1/2 pill of Sildenafil per day. Patient continues to explain that she paid OOP for her first prescription of Sildenafil, but that she needs her Junior Linux Systems Administrator to reach out to INS to discuss this and have it resolved, she reports that she plans to call Dr. Felder's office Sunday to have them assist. No other needs voiced at this time, technical proposal writer urged patient to call OTM line next week if she has any further issues with her medications. Normal [facility] 30 Problem: Pain - Adul t [...] and behaviors that affect risk of falls [place] fall precautions as indicated by assessment Educate [...] integrity remains intact Outcome: Progressing Flowsheets (Taken 08/09/2023 0830) Skin integrity remains intact: Monitor for areas of redness and/or skin breakdown Change oxygen saturation probe site as needed Goal: Oral mucous memb (more content not included)... Normal [facility] BASIC METABOLIC PANELon 11-2 Anion gap [Moles/Vol] 9 mmol/L Normal 7-20 [facility] Comment on above: Performed By: #### L [id number] #### [facility] ([facility]AKER) [address] [place] [address] Calcium [Mass/Vol] 8.7 mg/dL Normal 8.6-10.3 [facility] Comment on above: Performed By: #### L [id number] #### [facility] (BEAKER) [address] [place] [address] Chloride [Moles/Vol] 100 mmol/L Normal 98-107 [facility] Comment on above: Performed By: #### L [id number] #### [facility] (BEAKER) [address] [place] [address] CO2 [Moles/Vol] 30 mmol/L Normal 21-31 [facility] Comment on above: Performed By: #### L [id number] #### [facility] (BEAKER) [address] [place] [address] Creatinine [Mass/Vol] 0.42 mg/dL Low 0.60-1.20 [facility] Comment on above: Performed By: #### L [id number] #### [facility] (BEAKER) [address] [place] [address] GLOMERULAR FILTRATION RATE ML/MIN/1.73 SQ M.PREDICTED 121.3 mL/min/1.73m*2 Normal >60.0 [facility] Comment on above: Result Comment: [facility]???s estimated glomerular filtration rate (eGFR) will [...] individuals. Performed By: #### L [id number] #### [facility] ([facility]) [address] [place] [address] Glucose [Mass/Vol] 146 mg/dL High 70-100 [facility] Comment on above: Performed By: #### L [id number] #### [facility] ([facility]) [address] [place] [address] Potassium [Moles/Vol] 3.7 mmol/L Normal 3.5-5.1 [facility] Comment on above: Performed By: #### L [id number] #### [facility] ([facility]) [address] [place] [address] Sodium [Moles/Vol] 135 mmol/L Low 136-145 [facility] Comment on above: Performed By: #### L [id number] #### [facility] ([facility]) [address] [place] [address] Urea nitrogen [Mass/Vol] 17 mg/dL Normal 7-25 [facility] Comment on above: Performed By: #### L [id number] #### [facility] ([facility]) [address] [place] [address] UREA NITROGEN/CREATININE (MASS RATIO) IN SER/PLAS 40.5 Normal [facility] Comment on above: Performed By: #### L [id number] #### [facility] ([facility]) [address] [place] [address] CBCon 08-09-2023 Erythrocyte distribution width (RBC) [Ratio] 13.1 % Normal 11.5-15.0 [facility] Comment on above: Performed By: #### L [id number] #### [facility] (BEAKER) [address] [place] [address] ERYTHROCYTE MEAN CORPUSCULAR HEMOGLOBIN CONCENTRATION (G/DL) BY AUTOMATED 32.6 g/dL Normal 32.0-35.0 [facility] Comment on above: Performed By: #### L [id number] #### [facility] [address] [place] [address] Hematocrit (Bld) [Volume fraction] 43.5 % Normal 36.0-48.0 [facility] Comment on above: Performed By: #### L [id number] #### [facility] [address] [place] [address] Hemoglobin (Bld) [Mass/Vol] 14.2 g/dL Normal 12.0-15.0 [facility] Comment on above: Performed By: #### L [id number] #### [facility] [address] [place] [address] MCH (RBC) [Entitic mass] 30.3 pg Normal 27.0-33.0 [facility] Comment on above: Performed By: #### L [id number] #### [facility] [address] [place] [address] MCV (RBC) [Entitic vol] 92.9 fL Normal 82.0-98.0 [facility] Comment on above: Performed By: #### L [id number] #### [facility] [address] [place] [address] PLATELETS (10*3/UL) IN BLOOD AUTOMATED COUNT 178 10*3/uL Normal 150-400 [facility] Comment on above: Performed By: #### L [id number] #### [facility] [address] [place] [address] RBC (Bld) [#/Vol] 4.68 10*6/uL Normal 3.80-5.00 [facility] Comment on above: Performed By: #### L [id number] #### [facility] [address] [facility] [address] WBC (Bld) [#/Vol] 7.40 10*3/uL Normal 4.00-10.60 [facility] Comment on above: Performed By: #### L [id number] #### [facility] ([facility]) [address] [place] [address] MAGNESIUMon 08-09-2023 Magnesium [Mass/Vol] 1.7 mg/dL Low 1.9-2.7 [facility] Comment on above: Performed By: #### L [id number] #### [facility] ([facility]) [address] [facility] [place] [address] NURSNOTEon 08-09-2023 NURSNOTE Discharge paperwork reviewed with pt; copy of paperwork given to pt. Reviewed new medications with pt. Pt expresses understanding of instructions. Pt currently waiting on family for ride home. Normal [facility] PHOSPHORUSon 08-09-2023 Magnesium [Mass/Vol] 4.3 mg/dL Normal 2.5-5.0 [facility] Comment on above: Performed By: #### L [id number] #### [facility] ([facility]) [address] [place] [address] POCT GLUCOSE METER UNSOLICIT ED RESULTSon 08-09-2023 Glucose [Mass/Vol] 151 mg/dL High 70-105 [facility] Comment on above: Order Comment: Waive d Testing in the ED is performed under the ED CLIA certificate #[id number]. Result Comment: [email or web address] Performed By: #### L [id number] #### [facility] ([facility]) [address] [place] [address] Glucose [Mass/Vol] 124 mg/dL High 70-105 [facility] Comment on above: Order Comment: Waive d Testing in the ED is performed under the ED CLIA certificate #[id number]. Result Comment: [email or web address] Performed By: #### L [id number] #### [facility] ([facility]) [address] [place] [address] Refillon 08-09-2023 Refill [id number] Shelly Lynn 1975 F Date Provider Department Center 08/09/2023 LIA DELGADORebecca [facility] 3[facility] MD Medical C No family history on file Reason for Visit and Comments: Med Change Request [411] Normal [facility] 30on 08-08-2023 30 The patient is Moder [...] Consider OT/PT consult to assist with strengthening/mobility [place] fall precautions as indicated by assessment Educate patient/family on patient safety, including physical limitations Instruct patient to call for assistance with activity based on assessment Problem: Discharge Planning Goal: Discharge to home or other facility with appropriate resources Outcome: Progressing Flowsheets (Taken 08/08/2023718 by Leti Jaeger, RN) Discharge to home or other facility with appropriate resources: Identify barriers to discharge with patient and caregiver Problem: Chronic Conditions and Co-morbidities Goal: Patient's chronic conditions and co-morbidity symptoms are monitored and maintained or improved Outcome: Progressing Flowsheets (Taken 08/08/2023718 by Leti Jaeger, RN) Care Plan - Patient's Chronic Conditions and Co-Morbidity Symptoms are Monitored and Maintained or Improved: Monitor and assess patient's chronic conditions and comorbid symptoms for stability, deterioration, or improvement Normal [facility] 30 The patient is Moder ately [...] functionality and self care Outcome: Progressing Normal [facility] BASIC METABOLIC PANELon 11-2 Anion gap [Moles/Vol] 7 mmol/L Normal 7-20 [facility] Comment on above: Performed By: #### L [id number] #### [facility] [address] [place] [address] Calcium [Mass/Vol] 8.5 mg/dL Low 8.6-10.3 [facility] Comment on above: Performed By: #### L [id number] #### [facility] (BEAKER) [address] [place] [address] Chloride [Moles/Vol] 102 mmol/L Normal 98-107 [facility] Comment on above: Performed By: #### L [id number] #### [facility] (BEAKER) [address] [place] [address] CO2 [Moles/Vol] 30 mmol/L Normal 21-31 [facility] Comment on above: Performed By: #### L [id number] #### [facility] (BEAKER) [address] [place] [address] Creatinine [Mass/Vol] 0.60 mg/dL Normal 0.60-1.20 [facility] Comment on above: Performed By: #### L [id number] #### [facility] (BEAKER) [address] [place] [address] GLOMERULAR FILTRATION RATE ML/MIN/1.73 SQ M.PREDICTED 111.3 mL/min/1.73m*2 Normal >60.0 [facility] Comment on above: Result Comment: [facility]???s estimated glomerular filtration rate (eGFR) will [...] group of individuals. Performed By: #### L [id number] #### [facility] ([facility]) [address] [place] [address] Glucose [Mass/Vol] 145 mg/dL High 70-100 [facility] Comment on above: Performed By: #### L [id number] #### [facility] ([facility]) [address] [place] [address] Potassium [Moles/Vol] 3.9 mmol/L Normal 3.5-5.1 [facility] Comment on above: Performed By: #### L [id number] #### [facility] ([facility]) [address] [place] [address] Sodium [Moles/Vol] 135 mmol/L Low 136-145 [facility] Comment on above: Performed By: #### L [id number] #### [facility] ([facility]) [address] [place] [address] Urea nitrogen [Mass/Vol] 22 mg/dL Normal 7-25 [facility] Comment on above: Performed By: #### L [id number] #### [facility] ([facility]) [address] [place] [address] UREA NITROGEN/CREATININE (MASS RATIO) IN SER/PLAS 36.7 Normal [facility] Comment on above: Performed By: #### L [id number] #### [facility] ([facility]) [address] [place] [address] CBCon 08-08-2023 Erythrocyte distribution width (RBC) [Ratio] 13.0 % Normal 11.5-15.0 [facility] Comment on above: Performed By: #### L [id number] #### [facility] ([facility]) [address] [place] [address] ERYTHROCYTE MEAN CORPUSCULAR HEMOGLOBIN CONCENTRATION (G/DL) BY AUTOMATED 31.8 g/dL Low 32.0-35.0 [facility] Comment on above: Performed By: #### L [id number] #### [facility] [address] [place] [address] Hematocrit (Bld) [Volume fraction] 47.5 % Normal 36.0-48.0 [facility] Comment on above: Performed By: #### L [id number] #### [facility] [address] [place] [address] Hemoglobin (Bld) [Mass/Vol] 15.1 g/dL High 12.0-15.0 [facility] Comment on above: Performed By: #### L [id number] #### [facility] [address] [place] [address] MCH (RBC) [Entitic mass] 29.7 pg Normal 27.0-33.0 [facility] Comment on above: Performed By: #### L [id number] #### [facility] [address] [place] [address] MCV (RBC) [Entitic vol] 93.3 fL Normal 82.0-98.0 [facility] Comment on above: Performed By: #### L [id number] #### [facility] [address] [place] [address] PLATELETS (10*3/UL) IN BLOOD AUTOMATED COUNT 190 10*3/uL Normal 150-400 [facility] Comment on above: Performed By: #### L [id number] #### [facility] [address] [place] [address] RBC (Bld) [#/Vol] 5.09 10*6/uL High 3.80-5.00 [facility] Comment on above: Performed By: #### L [id number] #### [facility] (BEAKER) [address] [place] [address] WBC (Bld) [#/Vol] 8.55 10*3/uL Normal 4.00-10.60 [facility] Comment on above: Performed By: #### L [id number] #### [facility] (BEAKER) [address] [place] [address] CTA CHEST W AND/OR WO IV CON [...] reasonably achievable. Electronically signed: Karlos Gallardo. Normal [facility] MAGNESIUMon 08-08-2023 Magnesium [Mass/Vol] 1.8 mg/dL Low 1.9-2.7 [facility] Comment on above: Performed By: #### L [id number] #### [facility] ([facility]ER) [address] [place] [address] NURSNOTEon 08-08-2023 NURSNOTE Patient Name: Daniel Lynn [...] Pamela Babcock RN Rapid Response Team Nurse [phone] 08/08/2023 3:26 PM Normal [facility] PHOSPHORUSon 08-08-2023 Magnesium [Mass/Vol] 3.4 mg/dL Normal 2.5-5.0 [facility] Comment on above: Performed By: #### L [id number] ####[facility] (AKER)[address] [place] [address] POCT GLUCOSE METER UNSOLICIT ED RESULTSon 08-08-2023 Glucose [Mass/Vol] 331 mg/dL High 70-105 [facility] Comment on above: Order Comment: Waive d Testing in the ED is performed under the ED CLIA certificate #[id number]. Result Comment: [email or web address] Performed By: #### L [id number] #### [facility] (BEAKER) [address] [place] [address] Glucose [Mass/Vol] 249 mg/dL High 70-105 [facility] Comment on above: Order Comment: Waive d Testing in the ED is performed under the ED CLIA certificate #[id number]. Result Comment: [email or web address] Performed By: #### L [id number] #### [facility] [address] [place] [address] Glucose [Mass/Vol] 277 mg/dL High 70-105 [facility] Comment on above: Order Comment: Waive d Testing in the ED is performed under the ED CLIA certificate #[id number]. Result Comment: [email or web address] Performed By: #### L [id number] #### [facility] ([facility]) [address] [place] [address] Glucose [Mass/Vol] 198 mg/dL High 70-105 [facility] Comment on above: Order Comment: Waive d Testing in the ED is performed under the ED CLIA certificate #[id number]. Result Comment: [email or web address] Performed By: #### L [id number] #### [facility] ([facility]) [address] [place] [address] Glucose [Mass/Vol] 111 mg/dL High 70-105 [facility] Comment on above: Order Comment: Waive d Testing in the ED is performed under the ED CLIA certificate #[id number]. Result Comment: [email or web address] Performed By: #### L [id number] #### [facility] ([facility]) [address] [place] [address] 30on 08-07-2023 30 Problem: Discharge Planning Goal: Discharge to home or other facility with appropriate resources Outcome: Progressing Flowsheets (Taken 08/07/2023 0800) Discharge to home or other facility with appropriate resources: Identify barriers to discharge with patient and caregiver Arrange for needed discharge resources and transportation as appropriate Problem: Chronic Conditions and Co-morbidities Goal: Patient's chronic conditions and co-morbidity symptoms are monitored and maintained or improved Outcome: Progressing Flowsheets (Taken 08/07/2023 0800) Care Plan - Patient's Chronic Conditions [...] ventilation and oxygenation Outcome: Progressing Flowsheets (Taken 08/07/2023 08) Achieves optimal ventilation and oxygenation: Assess for changes in respiratory status Assess for changes in mentation and behavior Position to facilitate oxygenation and minimize respiratory effort Problem: Skin/Tissue Integrity - Adult Goal: Skin integrity remains intact Outcome: Progressing Flowsheets (Taken 08/07/2023 08) Skin integrity remains intact: Monitor for areas of redness and/or skin breakdown Assess vascular access sites hourly Goal: Oral mucous membranes remain intact Outcome: Progressing Flowsheets (Taken 08/07/2023 08) Oral mucous membranes remain intact: Assess oral mucosa and hygiene practices Implement preventative oral hygiene regimen Normal [facility] BASIC METABOLIC PANELon 11- Anion gap [Moles/Vol] 9 mmol/L Normal 7-20 [facility] Comment on above: Performed By: #### L [id number] #### [facility] (AKER) [address] [place] [address] Calcium [Mass/Vol] 8.5 mg/dL Low 8.6-10.3 [facility] Comment on above: Performed By: #### L [id number] #### [facility] (BEAKER) [address] [place] [address] Chloride [Moles/Vol] 98 mmol/L Normal 98-107 [facility] Comment on above: Performed By: #### L [id number] #### [facility] (BEAKER) [address] [place] [address] CO2 [Moles/Vol] 31 mmol/L Normal 21-31 [facility] Comment on above: Performed By: #### L [id number] #### [facility] (BEAKER) [address] [place] [address] Creatinine [Mass/Vol] 0.59 mg/dL Low 0.60-1.20 [facility] Comment on above: Performed By: #### L [id number] #### [facility] (BEAKER) [address] [place] [address] GLOMERULAR FILTRATION RATE ML/MIN/1.73 SQ M.PREDICTED 111.8 mL/min/1.73m*2 Normal >60.0 [facility] Comment on above: Result Comment: [facility]???s estimated glomerular filtration rate (eGFR) will [...] individuals. Performed By: #### L [id number] #### [facility] ([facility]) [address] [place] [address] Glucose [Mass/Vol] 210 mg/dL High 70-100 [facility] Comment on above: Performed By: #### L [id number] #### [facility] ([facility]) [address] [place] [address] Potassium [Moles/Vol] 3.8 mmol/L Normal 3.5-5.1 [facility] Comment on above: Performed By: #### L [id number] #### [facility] ([facility]) [address] [place] [address] Sodium [Moles/Vol] 134 mmol/L Low 136-145 [facility] Comment on above: Performed By: #### L [id number] #### [facility] ([facility]) [address] [place] [address] Urea nitrogen [Mass/Vol] 25 mg/dL Normal 7-25 [facility] Comment on above: Performed By: #### L [id number] #### [facility] ([facility]) [address] [place] [address] UREA NITROGEN/CREATININE (MASS RATIO) IN SER/PLAS 42.4 Normal [facility] Comment on above: Performed By: #### L [id number] #### [facility] ([facility]) [address] [place] [address] CBCon 08-07-2023 Erythrocyte distribution width (RBC) [Ratio] 13.0 % Normal 11.5-15.0 [facility] Comment on above: Performed By: #### L [id number] #### [facility] ([facility]) [address] [place] [address] ERYTHROCYTE MEAN CORPUSCULAR HEMOGLOBIN CONCENTRATION (G/DL) BY AUTOMATED 32.6 g/dL Normal 32.0-35.0 [facility] Comment on above: Performed By: #### L [id number] #### [facility] ([facility]) [address] [place] [address] Hematocrit (Bld) [Volume fraction] 47.3 % Normal 36.0-48.0 [facility] Comment on above: Performed By: #### L [id number] #### [facility] ([facility]) [address] [place] [address] Hemoglobin (Bld) [Mass/Vol] 15.4 g/dL High 12.0-15.0 [facility] Comment on above: Performed By: #### L [id number] #### [facility] ([facility]) [address] [place] [address] MCH (RBC) [Entitic mass] 30.1 pg Normal 27.0-33.0 [facility] Comment on above: Performed By: #### L [id number] #### [facility] ([facility]) [address] [place] [address] MCV (RBC) [Entitic vol] 92.6 fL Normal 82.0-98.0 [facility] Comment on above: Performed By: #### L [id number] #### [facility] ([facility]) [address] [place] [address] PLATELETS (10*3/UL) IN BLOOD AUTOMATED COUNT 194 10*3/uL Normal 150-400 [facility] Comment on above: Performed By: #### L [id number] #### [facility] ([facility]) [address] [place] [address] RBC (Bld) [#/Vol] 5.11 10*6/uL High 3.80-5.00 [facility] Comment on above: Performed By: #### L [id number] #### [facility] ([facility]) [address] [place] [address] WBC (Bld) [#/Vol] 9.05 10*3/uL Normal 4.00-10.60 [facility] Comment on above: Performed By: #### L [id number] #### [facility] ([facility]) [address] [place] [address] MAGNESIUMon 08-07-2023 Magnesium [Mass/Vol] 1.7 mg/dL Low 1.9-2.7 [facility] Comment on above: Performed By: #### L [id number] #### [facility] ([facility]) [address] [place] [address] NURSNOTEon 08-07-2023 NURSNOTE Report given to NEDRA dhillon in CVU. All questions answered at this time- patient belongings given from technical proposal writer to RN. Normal [facility] PHOSPHORUSon 08-07-2023 Magnesium [Mass/Vol] 3.5 mg/dL Normal 2.5-5.0 [facility] Comment on above: Performed By: #### L [id number] #### [facility] ([facility]) [address] [place] [address] POCT GLUCOSE METER UNSOLICIT ED RESULTSon 08-07-2023 Glucose [Mass/Vol] 233 mg/dL High 70-105 [facility] Comment on above: Order Comment: Waive d Testing in the ED is performed under the ED CLIA certificate #[id number]. Result Comment: [email or web address] Performed By: #### L [id number] #### [facility] ([facility]) [address] [place] [address] Glucose [Mass/Vol] 156 mg/dL High 70-105 [facility] Comment on above: Order Comment: Waive d Testing in the ED is performed under the ED CLIA certificate #[id number]. Result Comment: [email or web address] Performed By: #### L [id number] #### [facility] (BEAKER) [address] [place] [address] Glucose [Mass/Vol] 305 mg/dL High 70-105 [facility] Comment on above: Order Comment: Waive d Testing in the ED is performed under the ED CLIA certificate #[id number]. Result Comment: [email or web address] Performed By: #### L [id number] #### [facility] (BEAKER) [address] [place] [address] 30on 08-06-2023 30 Problem: Pain - Adul [...] dysrhythmias or at baseline Outcome: Progressing Normal [facility] BASIC METABOLIC PANELon 2 Anion gap [Moles/Vol] 9 mmol/L Normal 04-05 [facility] Comment on above: Performed By: #### L [id number] #### [facility] (BEAKER) [address] [place] [address] Calcium [Mass/Vol] 8.4 mg/dL Low 8.6-10.3 [facility] Comment on above: Performed By: #### L [id number] #### [facility] ([facility]) [address] [place] [address] Chloride [Moles/Vol] 100 mmol/L Normal 98-107 [facility] Comment on above: Performed By: #### L [id number] #### [facility] ([facility]) [address] [place] [address] CO2 [Moles/Vol] 30 mmol/L Normal 21-31 [facility] Comment on above: Performed By: #### L [id number] #### [facility] ([facility]) [address] [place] [address] Creatinine [Mass/Vol] 0.61 mg/dL Normal 0.60-1.20 [facility] Comment on above: Performed By: #### L [id number] #### [facility] ([facility]) [address] [place] [address] GLOMERULAR FILTRATION RATE ML/MIN/1.73 SQ M.PREDICTED 110.9 mL/min/1.73m*2 Normal >60.0 [facility] Comment on above: Result Comment: [facility]???s estimated glomerular filtration rate (eGFR) will [...] individuals. Performed By: #### L [id number] #### [facility] ([facility]) [address] [place] [address] Glucose [Mass/Vol] 180 mg/dL High 70-100 [facility] Comment on above: Performed By: #### L [id number] #### [facility] [address] [place] [address] Potassium [Moles/Vol] 4.1 mmol/L Normal 3.5-5.1 [facility] Comment on above: Performed By: #### L [id number] #### [facility] [address] [place] [address] Sodium [Moles/Vol] 135 mmol/L Low 136-145 [facility] Comment on above: Performed By: #### L [id number] #### [facility] [address] [place] [address] Urea nitrogen [Mass/Vol] 20 mg/dL Normal 7-25 [facility] Comment on above: Performed By: #### L [id number] #### [facility] ([facility]) [address] [place] [address] UREA NITROGEN/CREATININE (MASS RATIO) IN SER/PLAS 32.8 Normal [facility] Comment on above: Performed By: #### L [id number] #### [facility] ([facility]) [address] [place] [address] CBCon 08-06-2023 Erythrocyte distribution width (RBC) [Ratio] 12.9 % Normal 11.5-15.0 [facility] Comment on above: Performed By: #### L [id number] #### [facility] ([facility]) [address] [place] [address] ERYTHROCYTE MEAN CORPUSCULAR HEMOGLOBIN CONCENTRATION (G/DL) BY AUTOMATED 32.4 g/dL Normal 32.0-35.0 [facility] Comment on above: Performed By: #### L [id number] #### [facility] ([facility]) [address] [place] [address] Hematocrit (Bld) [Volume fraction] 48.5 % High 36.0-48.0 [facility] Comment on above: Performed By: #### L [id number] #### [facility] [address] [place] [address] Hemoglobin (Bld) [Mass/Vol] 15.7 g/dL High 12.0-15.0 [facility] Comment on above: Performed By: #### L [id number] #### [facility] ([facility]) [address] [place] [address] MCH (RBC) [Entitic mass] 30.3 pg Normal 27.0-33.0 [facility] Comment on above: Performed By: #### L [id number] #### [facility] ([facility]) [address] [place] [address] MCV (RBC) [Entitic vol] 93.4 fL Normal 82.0-98.0 [facility] Comment on above: Performed By: #### L [id number] #### [facility] ([facility]) [address] [place] [address] PLATELETS (10*3/UL) IN BLOOD AUTOMATED COUNT 159 10*3/uL Normal 150-400 [facility] Comment on above: Performed By: #### L [id number] #### [facility] ([facility]) [address] [place] [address] RBC (Bld) [#/Vol] 5.19 10*6/uL High 3.80-5.00 [facility] Comment on above: Performed By: #### L [id number] #### [facility] ([facility]) [address] [place] [address] WBC (Bld) [#/Vol] 8.36 10*3/uL Normal 4.00-10.60 [facility] Comment on above: Performed By: #### L [id number] #### [facility] ([facility]) [address] [place] [address] MAGNESIUMon 08-06-2023 Magnesium [Mass/Vol] 1.8 mg/dL Low 1.9-2.7 [facility] Comment on above: Performed By: #### L [id number] #### [facility] ([facility]) [address] [place] [address] MRI CARDIAC MORPHOLOGY AND F UNCTION W [...] hypertrophy . . Electronically signed: Cade Farley. [facility] PHOSPHORUSon 11-20-2023 Magnesium [Mass/Vol] 3.2 mg/dL Normal 2.5-5.0 [facility] Comment on above: Performed By: #### L [id number] #### [facility] ([facility]) [address] [place] [address] POCT GLUCOSE METER UNSOLICIT ED RESULTSon 08-06-2023 Glucose [Mass/Vol] 240 mg/dL High 70-105 [facility] Comment on above: Order Comment: Waive d Testing in the ED is performed under the ED CLIA certificate #[id number]. Result Comment: [email or web address] Performed By: #### L [id number] ####[facility] ([facility])[address] [place] [address] Glucose [Mass/Vol] 240 mg/dL High 70-105 [facility] Comment on above: Order Comment: Waive d Testing in the ED is performed under the ED CLIA certificate #[id number]. Result Comment: [email or web address] Performed By: #### L [id number] #### [facility] ([facility]) [address] [place] [address] Glucose [Mass/Vol] 252 mg/dL High 70-105 [facility] Comment on above: Order Comment: Waive d Testing in the ED is performed under the ED CLIA certificate #[id number]. Result Comment: [email or web address] Performed By: #### L [id number] #### [facility] ([facility]) [address] [place] [address] 30on 08-05-2023 30 The patient is Moder [...] Goal: Maintains hematologic stability Outcome: Progressing Normal [facility] 30 Problem: Pain - Adul t [...] goals for the shift include VSS Normal [facility] BASIC METABOLIC PANELon 11- Anion gap [Moles/Vol] 7 mmol/L Normal 7-20 [facility] Comment on above: Performed By: #### L [id number] #### [facility] ([facility]) [address] [place] [address] Calcium [Mass/Vol] 8.4 mg/dL Low 8.6-10.3 [facility] Comment on above: Performed By: #### L [id number] #### [facility] ([facility]) [address] [place] [address] Chloride [Moles/Vol] 99 mmol/L Normal 98-107 [facility] Comment on above: Performed By: #### L [id number] #### [facility] (BEAKER) [address] [place] [address] CO2 [Moles/Vol] 33 mmol/L High 21-31 [facility] Comment on above: Performed By: #### L [id number] #### [facility] [address] [place] [address] Creatinine [Mass/Vol] 0.75 mg/dL Normal 0.60-1.20 [facility] Comment on above: Performed By: #### L [id number] #### [facility] ([facility]) [address] [place] [address] GLOMERULAR FILTRATION RATE ML/MIN/1.73 SQ M.PREDICTED 98.8 mL/min/1.73m*2 Normal >60.0 [facility] Comment on above: Result Comment: [facility]???s estimated glomerular filtration rate (eGFR) will [...] individuals. Performed By: #### L [id number] #### [facility] ([facility]) [address] [place] [address] Glucose [Mass/Vol] 206 mg/dL High 70-100 [facility] Comment on above: Performed By: #### L [id number] #### [facility] ([facility]) [address] [place] [address] Potassium [Moles/Vol] 3.7 mmol/L Normal 3.5-5.1 [facility] Comment on above: Performed By: #### L [id number] #### [facility] ([facility]) [address] [place] [address] Sodium [Moles/Vol] 135 mmol/L Low 136-145 [facility] Comment on above: Performed By: #### L [id number] #### [facility] ([facility]) [address] [place] [address] Urea nitrogen [Mass/Vol] 26 mg/dL High 7-25 [facility] Comment on above: Performed By: #### L [id number] #### [facility] ([facility]) [address] [place] [address] UREA NITROGEN/CREATININE (MASS RATIO) IN SER/PLAS 34.7 Normal [facility] Comment on above: Performed By: #### L [id number] #### [facility] ([facility]) [address] [place] [address] CBCon 08-05-2023 Erythrocyte distribution width (RBC) [Ratio] 13.0 % Normal 11.5-15.0 [facility] Comment on above: Performed By: #### L [id number] ####[facility] ([facility])[address] [place] [address] ERYTHROCYTE MEAN CORPUSCULAR HEMOGLOBIN CONCENTRATION (G/DL) BY AUTOMATED 32.7 g/dL Normal 32.0-35.0 [facility] Comment on above: Performed By: #### L [id number] ####[facility] ([facility])[address] [place] [address] Hematocrit (Bld) [Volume fraction] 49.5 % High 36.0-48.0 [facility] Comment on above: Performed By: #### L [id number] ####[facility] ([facility])[address] [place] [address] Hemoglobin (Bld) [Mass/Vol] 16.2 g/dL High 12.0-15.0 [facility] Comment on above: Performed By: #### L [id number] ####[facility] ([facility])[address] [place] [address] MCH (RBC) [Entitic mass] 30.6 pg Normal 27.0-33.0 [facility] Comment on above: Performed By: #### L [id number] ####[facility] ([facility])[address] [place] [address] MCV (RBC) [Entitic vol] 93.4 fL Normal 82.0-98.0 [facility] Comment on above: Performed By: #### L [id number] ####[facility] ([facility])[address] [place] [address] PLATELETS (10*3/UL) IN BLOOD AUTOMATED COUNT 190 10*3/uL Normal 150-400 [facility] Comment on above: Performed By: #### L [id number] ####[facility] ([facility])[address] [place] [address] RBC (Bld) [#/Vol] 5.30 10*6/uL High 3.80-5.00 [facility] Comment on above: Performed By: #### L [id number] ####[facility] ([facility])[address] [place] [address] WBC (Bld) [#/Vol] 9.57 10*3/uL Normal 4.00-10.60 [facility] Comment on above: Performed By: #### L [id number] ####[facility] ([facility])[address] [place] [address] MAGNESIUMon 08-05-2023 Magnesium [Mass/Vol] 1.9 mg/dL Normal 1.9-2.7 [facility] Comment on above: Performed By: #### L [id number] ####[facility] ([facility])[address] [place] [address] PHOSPHORUSon 08-05-2023 Magnesium [Mass/Vol] 3.1 mg/dL Normal 2.5-5.0 [facility] Comment on above: Performed By: #### L [id number] #### [facility] ([facility]) [address] [place] [address] POCT GLUCOSE METER UNSOLICIT ED RESULTSon 08-05-2023 Glucose [Mass/Vol] 272 mg/dL High 70-105 [facility] Comment on above: Order Comment: Waive d Testing in the ED is performed under the ED CLIA certificate #[id number]. Result Comment: [email or web address] Performed By: #### L [id number] #### [facility] ([facility]) [address] [place] [address] Glucose [Mass/Vol] 203 mg/dL High 70-105 [facility] Comment on above: Order Comment: Waive d Testing in the ED is performed under the ED CLIA certificate #[id number]. Result Comment: ana ry Performed By: #### L [id number] ####[facility] (BEAKER)[address] [place] [address] Glucose [Mass/Vol] 227 mg/dL High 70-105 [facility] Comment on above: Order Comment: Waive d Testing in the ED is performed under the ED CLIA certificate #[id number]. Result Comment: ana ry Performed By: #### L [id number] #### [facility] (BEAKER) [address] [place] [address] Glucose [Mass/Vol] 200 mg/dL High 70-105 [facility] Comment on above: Order Comment: Waive d Testing in the ED is performed under the ED CLIA certificate #[id number]. Result Comment: ana yanes Performed By: #### L [id number] #### [facility] ([facility]) [address] [place] [address] 30on 08-04-2023 30 The patient is Moder [...] Goal: Maintains hematologic stability Outcome: Progressing Normal [facility] 30 The patient is Moder ately [...] Goal: Maintains hematologic stability Outcome: Progressing Normal [facility] BASIC METABOLIC PANELon 11- Anion gap [Moles/Vol] 7 mmol/L Normal 7-20 [facility] Comment on above: Performed By: #### L [id number] ####[facility] ([facility])[address] [place] [address] Calcium [Mass/Vol] 8.4 mg/dL Low 8.6-10.3 [facility] Comment on above: Performed By: #### L [id number] ####[facility] ([facility])[address] [place] [address] Chloride [Moles/Vol] 99 mmol/L Normal 98-107 [facility] Comment on above: Performed By: #### L [id number] ####[facility] ([facility])[address] [place] [address] CO2 [Moles/Vol] 33 mmol/L High 21-31 [facility] Comment on above: Performed By: #### L [id number] ####[facility] ([facility])[address] [place] [address] Creatinine [Mass/Vol] 0.82 mg/dL Normal 0.60-1.20 [facility] Comment on above: Performed By: #### L [id number] ####[facility] ([facility])[address] [place] [address] GLOMERULAR FILTRATION RATE ML/MIN/1.73 SQ M.PREDICTED 88.7 mL/min/1.73m*2 Normal >60.0 [facility] Comment on above: Result Comment: [facility]???s estimated glomerular filtration rate (eGFR) will [...] of individuals. Performed By: #### L [id number] ####[facility] ([facility])[address] [place] [address] Glucose [Mass/Vol] 207 mg/dL High 70-100 [facility] Comment on above: Performed By: #### L [id number] ####[facility] ([facility])[address] [place] [address] Potassium [Moles/Vol] 3.8 mmol/L Normal 3.5-5.1 [facility] Comment on above: Performed By: #### L [id number] ####[facility] ([facility])[address] [place] [address] Sodium [Moles/Vol] 135 mmol/L Low 136-145 [facility] [facility] Comment on above: Performed By: #### L [id number] ####[facility] ([facility] [place] [address] Urea nitrogen [Mass/Vol] 28 mg/dL High 7-25 [facility] Comment on above: Performed By: #### L [id number] ####[facility] ([facility])[address] [place] [address] UREA NITROGEN/CREATININE (MASS RATIO) IN SER/PLAS 34.1 Normal [facility] Comment on above: Performed By: #### L [id number] ####[facility] ([facility])[address] [place] [address] CBCon 08-04-2023 Erythrocyte distribution width (RBC) [Ratio] 13.0 % Normal 11.5-15.0 [facility] Comment on above: Performed By: #### L [id number] ####[facility] (BEAKER)[address] [place] [address] ERYTHROCYTE MEAN CORPUSCULAR HEMOGLOBIN CONCENTRATION (G/DL) BY AUTOMATED 32.5 g/dL Normal 32.0-35.0 [facility] Comment on above: Performed By: #### L [id number] ####[facility] ([facility])[address] [address] Hematocrit (Bld) [Volume fraction] 49.9 % High 36.0-48.0 [facility] Comment on above: Performed By: #### L [id number] ####[facility] ([facility])[address] [place] [address] Hemoglobin (Bld) [Mass/Vol] 16.2 g/dL High 12.0-15.0 [facility] Comment on above: Performed By: #### L [id number] ####[facility] ([facility])[address] [place] [address] MCH (RBC) [Entitic mass] 30.5 pg Normal 27.0-33.0 [facility] Comment on above: Performed By: #### L [id number] ####[facility] ([facility])[address] [place] [address] MCV (RBC) [Entitic vol] 93.8 fL Normal 82.0-98.0 [facility] Comment on above: Performed By: #### L [id number] ####[facility] ([facility]ER)[address] [place] [address] PLATELETS (10*3/UL) IN BLOOD AUTOMATED COUNT 197 10*3/uL Normal 150-400 [facility] Comment on above: Performed By: #### L [id number] ####[facility] ([facility])[address] [address] RBC (Bld) [#/Vol] 5.32 10*6/uL High 3.80-5.00 [facility] Comment on above: Performed By: #### L [id number] ####[facility] ([facility])[address] [place] [address] WBC (Bld) [#/Vol] 10.19 10*3/uL Normal 4.00-10.60 [facility] Comment on above: Performed By: #### L [id number] ####[facility] ([facility])[address] [place] [address] CONSULTon 08-04-2023 CONSULT Inpatient consult to Cardiothoracic Surgery Consult performed by: Gian Cardona NP Consult ordered by: Lissette Delgado MD Reason for consult: ASD History Of Present Illness Daniel Lynn is a 47 y.o. female with PMH of Asthma and Obesity who was initially evaluated in [place] on 07/25 with with 4 days of [...] the patient and they recommended transfer to [facility] for right heart catherization. She arrived to [facility] 08/01 where she was admitted to [...] of Asthma, COPD (chronic obstructive pulmonary disease) ([facility]), Diabetes mellitus ([facility]), Hypertension, MTHFR gene mutation, and [...] Mental Status (more content not included)... Normal [facility] MAGNESIUMon 08-04-2023 Magnesium [Mass/Vol] 1.9 mg/dL Normal 1.9-2.7 [facility] Comment on above: Performed By: #### L [id number] #### [facility] ([facility]) [address] [place] [address] PHOSPHORUSon 08-04-2023 Magnesium [Mass/Vol] 2.8 mg/dL Normal 2.5-5.0 [facility] Comment on above: Performed By: #### L [id number] #### [facility] ([employer]) [address] [place] [address] POCT GLUCOSE METER UNSOLICIT ED RESULTSon 08-04-2023 Glucose [Mass/Vol] 310 mg/dL High 70-105 [facility] Comment on above: Order Comment: Waive d Testing in the ED is performed under the ED CLIA certificate #[id number]. Result Comment: nfre [email or web address] Performed By: #### L [id number] #### [facility] ([employer]) [address] [place] [address] Glucose [Mass/Vol] 248 mg/dL High 70-105 [facility] Comment on above: Order Comment: Waive d Testing in the ED is performed under the ED CLIA certificate #[id number]. Result Comment: [email or web address] Performed By: #### L [id number] #### [facility] ([employer]) [address] [place] [address] Glucose [Mass/Vol] 212 mg/dL High 70-105 [facility] Comment on above: Order Comment: Waive d Testing in the ED is performed under the ED CLIA certificate #[id number]. Result Comment: [email or web address] Performed By: #### L [id number] #### [facility] ([facility]) [address] [place] [address] Glucose [Mass/Vol] 185 mg/dL High 70-105 [facility] Comment on above: Order Comment: Waive d Testing in the ED is performed under the ED CLIA certificate #[id number]. Result Comment: [email or web address] Performed By: #### L [id number] ####[facility] ([facility])[address] [place] [address] BASIC METABOLIC PANELon 11- Anion gap [Moles/Vol] 10 mmol/L Normal 7-20 [facility] Comment on above: Performed By: #### L [id number] #### [facility] ([facility]) [address] [place] [address] Calcium [Mass/Vol] 8.7 mg/dL Normal 8.6-10.3 [facility] Comment on above: Performed By: #### L [id number] #### [facility] ([facility]) [address] [place] [address] Chloride [Moles/Vol] 95 mmol/L Low 98-107 [facility] Comment on above: Performed By: #### L [id number] #### [facility] ([facility]) [address] [place] [address] CO2 [Moles/Vol] 32 mmol/L High 21-31 [facility] Comment on above: Performed By: #### L [id number] #### [facility] ([facility]) [address] [place] [address] Creatinine [Mass/Vol] 0.67 mg/dL Normal 0.60-1.20 [facility] Comment on above: Performed By: #### L [id number] #### [facility] ([facility]) [address] [place] [address] GLOMERULAR FILTRATION RATE ML/MIN/1.73 SQ M.PREDICTED 108.4 mL/min/1.73m*2 Normal >60.0 [facility] Comment on above: Result Comment: [facility]???s estimated glomerular filtration rate (eGFR) will [...] group of individuals. Performed By: #### L [id number] #### [facility] ([facility]) [address] [place] [address] Glucose [Mass/Vol] 277 mg/dL High 70-100 [facility] Comment on above: Performed By: #### L [id number] #### [facility] ([facility]) [address] [place] [address] Potassium [Moles/Vol] 3.6 mmol/L Normal 3.5-5.1 [facility] Comment on above: Performed By: #### L [id number] #### [facility] ([facility]) [address] [place] [address] Sodium [Moles/Vol] 133 mmol/L Low 136-145 [facility] Comment on above: Performed By: #### L [id number] #### [facility] ([facility]) [address] [place] [address] Urea nitrogen [Mass/Vol] 32 mg/dL High 7-25 [facility] Comment on above: Performed By: #### L [id number] #### [facility] ([facility]) [address] [place] [address] UREA NITROGEN/CREATININE (MASS RATIO) IN SER/PLAS 47.8 Normal [facility] Comment on above: Performed By: #### L [id number] #### [facility] ([facility]) [address] [place] [address] CBCon 08-03-2023 Erythrocyte distribution width (RBC) [Ratio] 13.0 % Normal 11.5-15.0 [facility] Comment on above: Performed By: #### L [id number] #### [facility] ([facility]) [address] [place] [address] ERYTHROCYTE MEAN CORPUSCULAR HEMOGLOBIN CONCENTRATION (G/DL) BY AUTOMATED 32.7 g/dL Normal 32.0-35.0 [facility] Comment on above: Performed By: #### L [id number] #### [facility] ([facility]) [address] [place] [address] Hematocrit (Bld) [Volume fraction] 54.8 % High 36.0-48.0 [facility] Comment on above: Performed By: #### L [id number] #### [facility] ([facility]) [address] [place] [address] Hemoglobin (Bld) [Mass/Vol] 17.9 g/dL High 12.0-15.0 [facility] Comment on above: Performed By: #### L [id number] #### [facility] ([facility]) [address] [place] [address] MCH (RBC) [Entitic mass] 30.5 pg Normal 27.0-33.0 [facility] Comment on above: Performed By: #### L [id number] #### [facility] ([facility]) [address] [place] [address] MCV (RBC) [Entitic vol] 93.5 fL Normal 82.0-98.0 [facility] Comment on above: Performed By: #### L [id number] #### [facility] ([facility]) [address] [place] [address] PLATELETS (10*3/UL) IN BLOOD AUTOMATED COUNT 208 10*3/uL Normal 150-400 [facility] Comment on above: Performed By: #### L [id number] #### [facility] ([facility]) [address] [place] [address] RBC (Bld) [#/Vol] 5.86 10*6/uL High 3.80-5.00 [facility] Comment on above: Performed By: #### L [id number] #### [facility] ([facility]) [address] [place] [address] WBC (Bld) [#/Vol] 12.73 10*3/uL High 4.00-10.60 [facility] Comment on above: Performed By: #### L [id number] #### [facility] ([facility]) [address] [place] [address] MAGNESIUMon 08-03-2023 Magnesium [Mass/Vol] 1.9 mg/dL Normal 1.9-2.7 [facility] Comment on above: Performed By: #### L [id number] #### [facility] ([facility]) [address] [place] [address] PHOSPHORUSon 08-03-2023 Magnesium [Mass/Vol] 3.3 mg/dL Normal 2.5-5.0 [facility] Comment on above: Performed By: #### L [id number] #### [facility] ([facility]) [address] [place] [address] POCT GLUCOSE METER UNSOLICIT ED RESULTSon 08-03-2023 Glucose [Mass/Vol] 286 mg/dL High 70-105 [facility] Comment on above: Order Comment: Waive d Testing in the ED is performed under the ED CLIA certificate #[id number]. Result Comment: nfre [email or web address] Performed By: #### L [id number] #### [facility] ([facility]) [address] [place] [address] Glucose [Mass/Vol] 214 mg/dL High 70-105 [facility] Comment on above: Order Comment: Waive d Testing in the ED is performed under the ED CLIA certificate #[id number]. Result Comment: [email or web address] Performed By: #### L [id number] #### [facility] ([facility]) [address] [place] [address] Glucose [Mass/Vol] 239 mg/dL High 70-105 [facility] Comment on above: Order Comment: Waive d Testing in the ED is performed under the ED CLIA certificate #[id number]. Result Comment: [email or web address] Performed By: #### L [id number] #### [facility] ([facility]) [address] [place] [address] Glucose [Mass/Vol] 234 mg/dL High 70-105 [facility] Comment on above: Order Comment: Waive d Testing in the ED is performed under the ED CLIA certificate #[id number]. Result Comment: [email or web address] Performed By: #### L [id number] #### [facility] ([facility]) [address] [place] [address] TSH3 REFLEX TO FT4on 023 THYROTROPIN (MIU/L) IN SER/PLAS BY DETECTION LIMIT <= 0.05 MIU/L 0.56 mIU/L Normal 0.34-5.60 [facility] Comment on above: Performed By: #### L [id number] #### [facility] ([facility]) [address] [place] [address] ANAon 08-02-2023 PHANI TITER <1:40 Normal <=1:40 [facility] Comment on above: Result Comment: Test performed using SERGE IFA PHANI Hep-2 Test, a pre-standardized assay designed for the qualitative and semi-quantitative detection of antinuclear antibodies. Performed By: #### L [id number] #### [facility] ([facility]) [address] [place] [address] ANTI-CENTROMERE ANTIBODYon 10-02-2022 ANTI-CENTROMERE ANTIBODY Negative Normal Negative [facility] Comment on above: Performed By: #### L [id number] #### [facility] ([facility]) [address] [place] [address] ANTI-DNASE B ANTIBODYon 07-18 DNASE B ANTIBODY <86 Normal <=259 [facility] Comment on above: Result Comment: [...] of a recent Streptococcus infection. Performed By: [employer] [facility]) [address] [place] [address] [employer] Tech: Saturnino Rai MD, PhD CLIA Number: [id number] Performed By: #### L [id number] #### [facility] (BEAKER) [address] [place] [address] ANTI-RITU 1 ANTIBODY, IGGon ANTI RITU-1 IGG 1 AU/mL Normal 0-40 [facility] Comment on above: Result Comment: INTE RPRETIVE INFORMATION: Ritu-1 Antibody, IgG 29 AU/mL or less.........Negative 30-40 AU/mL..............Equivocal 41 AU/mL or greater......Positive Presence of Ritu-1 (antihistidyl transfer RNA [t-RNA] synthetase) antibody is associated with polymyositis and may also be seen in patients with dermatomyositis. Ritu-1 antibody is associated with pulmonary involvement (interstitial lung disease), Raynaud phenomenon, arthritis, and upholstery mechanic's hands (implicated in antisynthetase syndrome). Performed By: [employer] ([employer]) [address] [place] [address] [employer]: Saturnino Rai MD, PhD CLIA Number: [id number] Performed By: #### L [id number] #### [facility] (BEAKER) [address] [place] [address] ARTERIAL BLOOD GAS WITH IONI ZED CALCIUMon 08-02-2023 Base excess Calc (Bld) [Moles/Vol] 13.8 mmol/L High -2.0-3.0 [facility] Comment on above: Order Comment: 04/26 Performed By: #### L [id number] #### [facility] ([facility]AKER) [address] [place] [address] CALCIUM IONIZED (MMOL/L) IN BLOOD 1.08 mmol/L Low 1.15-1.33 [facility] Comment on above: Order Comment: 04/26 Performed By: #### L [id number] #### [facility] ([facility]) [address] [place] [address] CO2 (Bld) [Partial pressure] 60 mm[Hg] Critically high 35-48 [facility] Comment on above: Order Comment: 04/26 Performed By: #### L [id number] #### [facility] ([facility]ER) [address] [place] [address] FIO2 90 % Normal [facility] Comment on above: Order Comment: 04/26 Performed By: #### L [id number] #### [facility] ([facility]ER) [address] [place] [address] HCO3 (Bld) [Moles/Vol] 40.8 mmol/L High 21.0-28.0 [facility] Comment on above: Order Comment: 04/26 Performed By: #### L [id number] #### [facility] (BE[facility]ER) [address] [place] [address] Oxygen (Bld) [Partial pressure] 89 mm[Hg] Normal 83-100 [facility] Comment on above: Order Comment: 04/26 Performed By: #### L [id number] #### [facility] (BEAKER) [address] [place] [address] OXYGEN SATURATION (%) IN ARTERIAL BLOOD 97.8 % Normal 94.0-98.0 [facility] Comment on above: Order Comment: 04/26 Performed By: #### L [id number] #### [facility] (BEAKER) [address] [place] [address] pH (Bld) 7.44 [pH] Normal 7.35-7.45 [facility] Comment on above: Order Comment: 04/26 Performed By: #### L [id number] #### [facility] (BEAKER) [address] [place] [address] SOURCE OF OXYGEN Bi-PAP Normal [facility] Comment on above: Order Comment: 04/26 Performed By: #### L [id number] #### [facility] ([facility]ER) [address] [place] [address] B-TYPE NATRIURETIC PEPTIDEon 08-02-2023 Natriuretic peptide B (Bld) [Mass/Vol] 37 pg/mL Normal 0-100 [facility] Comment on above: Performed By: #### L [id number] #### [facility] ([facility]ER) [address] [place] [address] BASIC METABOLIC PANELon 07-18 Anion gap [Moles/Vol] 10 mmol/L Normal 7-20 [facility] Comment on above: Performed By: #### L [id number] #### [facility] ([facility]ER) [address] [place] [address] Calcium [Mass/Vol] 8.8 mg/dL Normal 8.6-10.3 [facility] Comment on above: Performed By: #### L [id number] #### [facility] ([facility]ER) [address] [place] [address] Chloride [Moles/Vol] 91 mmol/L Low 98-107 [facility] Comment on above: Performed By: #### L [id number] #### [facility] (BEAKER) [address] [place] [address] CO2 [Moles/Vol] 39 mmol/L High 21-31 [facility] Comment on above: Performed By: #### L [id number] #### [facility] ([facility]ER) [address] [place] [address] Creatinine [Mass/Vol] 0.70 mg/dL Normal 0.60-1.20 [facility] Comment on above: Performed By: #### L [id number] #### [facility] ([facility]) [address] [place] [address] GLOMERULAR FILTRATION RATE ML/MIN/1.73 SQ M.PREDICTED 107.3 mL/min/1.73m*2 Normal >60.0 [facility] Comment on above: Result Comment: [facility]???s estimated glomerular filtration rate (eGFR) will [...] individuals. Performed By: #### L [id number] #### [facility] ([facility]) [address] [place] [address] Glucose [Mass/Vol] 231 mg/dL High 70-100 [facility] Comment on above: Performed By: #### L [id number] #### [facility] ([facility]) [address] [facility] [place] [address] Potassium [Moles/Vol] 3.7 mmol/L Normal 3.5-5.1 [facility] Comment on above: Performed By: #### L [id number] #### [facility] ([facility]) [address] [place] [address] Sodium [Moles/Vol] 136 mmol/L Normal 136-145 [facility] Comment on above: Performed By: #### L [id number] #### [facility] ([facility]) [address] [place] [address] Urea nitrogen [Mass/Vol] 29 mg/dL High 7-25 [facility] Comment on above: Performed By: #### L [id number] #### [facility] ([facility]) [address] [place] [address] UREA NITROGEN/CREATININE (MASS RATIO) IN SER/PLAS 41.4 Normal [facility] Comment on above: Performed By: #### L [id number] #### [facility] ([facility]) [address] [place] [address] CBCon 08-02-2023 Erythrocyte distribution width (RBC) [Ratio] 13.2 % Normal 11.5-15.0 [facility] Comment on above: Performed By: #### L [id number] #### [facility] ([facility]) [address] [place] [address] ERYTHROCYTE MEAN CORPUSCULAR HEMOGLOBIN CONCENTRATION (G/DL) BY AUTOMATED 32.4 g/dL Normal 32.0-35.0 [facility] Comment on above: Performed By: #### L [id number] #### [facility] ([facility]) [address] [place] [address] Hematocrit (Bld) [Volume fraction] 56.2 % High 36.0-48.0 [facility] Comment on above: Performed By: #### L [id number] #### [facility] ([facility]) [address] [place] [address] Hemoglobin (Bld) [Mass/Vol] 18.2 g/dL High 12.0-15.0 [facility] Comment on above: Performed By: #### L [id number] #### [facility] ([facility]) [address] [place] [address] MCH (RBC) [Entitic mass] 30.6 pg Normal 27.0-33.0 [facility] Comment on above: Performed By: #### L [id number] #### [facility] ([facility]) [address] [place] [address] MCV (RBC) [Entitic vol] 94.5 fL Normal 82.0-98.0 [facility] Comment on above: Performed By: #### L [id number] #### [facility] ([facility]) [address] [place] [address] PLATELETS (10*3/UL) IN BLOOD AUTOMATED COUNT 237 10*3/uL Normal 150-400 [facility] Comment on above: Performed By: #### L [id number] #### [facility] ([facility]) [address] [place] [address] RBC (Bld) [#/Vol] 5.95 10*6/uL High 3.80-5.00 [facility] Comment on above: Performed By: #### L [id number] #### [facility] ([facility]) [address] [place] [address] WBC (Bld) [#/Vol] 12.17 10*3/uL High 4.00-10.60 [facility] Comment on above: Performed By: #### L [id number] #### [facility] ([facility]) [address] [place] [address] CT CHEST HIGH RESOLUTION WO CONTRASTon 08-02-2023 [...] reasonably achievable. Electronically signed: Lonnie Tolentino. Normal [facility] CTA HEART STRUCTURE MORPHOLO GY W [...] the actual shunt. No pericardial effusion Large [id number] images obtained but there is no evidence [...] with atelectasis Electronically signed: Cade Farley. Normal [facility] HPon 08-02-2023 HP H&P reviewed. The daniel richards was examined and there are no changes to the H&P. Normal [facility] LEGIONELLA ANTIGEN, URINEon 08-02-2023 LEGIONELLA AG, UR Negative Normal [facility] Comment on above: Result Comment: L. p neumophila serogroup 1 antigen not detected. A negative result does not exclude infection with Leginella pnemophila serogroup 1 nor does it rule out other microbial-caused respiratory infections of disease caused by other serogroups of Legionella pneumophila. Test Performed by [facility] [address] [place], [place] [id number] - Released 08/02/2023 19:58 Performed By: #### L [id number] #### [facility] (AKER) [address] [place] [address] MAGNESIUMon 08-02-2023 Magnesium [Mass/Vol] 2.0 mg/dL Normal 1.9-2.7 [facility] Comment on above: Performed By: #### L [id number] #### [facility] ([facility]ER) [address] [place] [address] MRSA/MSSA DNA NASALon 2022 MRSA DNA Negative Normal Negative [facility] Comment on above: Order Comment: Testi [...] colonization. Performed By: #### L [id number] #### [facility] ([facility]) [address] [place] [address] MSSA DNA Negative Normal Negative [facility] Comment on above: Order Comment: Nemo carbajal methodology is an automated qualitative in vitro [...] colonization. Performed By: #### L [id number] #### [facility] ([facility]) [address] [place] [address] NM LUNG PERFUSION PARTICULAT Cruzito 08-02-2023 NM [...] pulmonary thromboembolism. Electronically signed: Lonnie Tolentino. Normal [facility] PHOSPHORUSon 08-02-2023 Magnesium [Mass/Vol] 4.5 mg/dL Normal 2.5-5.0 [facility] Comment on above: Performed By: #### L [id number] #### [facility] ([facility]) [address] [place] [address] POCT GLUCOSE METER UNSOLICIT ED RESULTSon 08-02-2023 Glucose [Mass/Vol] 337 mg/dL High 70-105 [facility] Comment on above: Order Comment: Waive d Testing in the ED is performed under the ED CLIA certificate #[id number]. Result Comment: ebol tz Performed By: #### L [id number] #### [facility] ([facility]) [address] [place] [address] Glucose [Mass/Vol] 164 mg/dL High 70-105 [facility] Comment on above: Order Comment: Waive d Testing in the ED is performed under the ED CLIA certificate #[id number]. Result Comment: lhag iga Performed By: #### L [id number] #### [facility] ([facility]) [address] [place] [address] Glucose [Mass/Vol] 218 mg/dL High 70-105 [facility] Comment on above: Order Comment: Waive d Testing in the ED is performed under the ED CLIA certificate #[id number]. Result Comment: ebol tz Performed By: #### L [id number] #### [facility] ([employer]) [address] [place] [address] PROCALCITONIN TESTon 023 PROCALCITONIN IN BLOOD 0.04 ng/mL Normal 0.00-0.10 [facility] Comment on above: Result Comment: Susp [...] and initial PCT<0.5ng/mL Performed By: #### L [id number] ####[facility] ([facility])[address] [place] [address] RHEUMATOID FACTORon 08-02-20 23 Rheumatoid factor Qn [IU]/mL Normal 0-20 [facility] Comment on above: Performed By: #### L [id number] #### [facility] ([facility]) [address] [place] [address] RNA POLYMERASE III ANTIBODY IGGon 08-02-2023 RNA POLYMERASE III ANTIBODY, IGG 11 Units Normal 0-19 [facility] Comment on above: Result Comment: INTE [...] antibodies associated with SSc, including centromere, Scl-70, U3-OR MANAGER, PM/Scl, or Th/To. Performed By: [employer] ([employer]) [address] [place] [address] [employer] Tech: Saturnino Rai MD, PhD CLIA Number: [id number] Performed By: #### L [id number] ####[facility] ([facility])[address] [place] [address] SJOGRENS SYNDROME ANTIBODIES A AND Bon 08-02-2023 IVAN TO SSA (RO) ANTIBODY Negative Normal Negative [facility] Comment on above: Performed By: #### L [id number] #### [facility] ([facility]) [address] [place] [address] IVAN TO SSB ([place]) ANTIBODY Negative Normal Negative [facility] Comment on above: Performed By: #### L [id number] #### [facility] ([facility]) [address] [place] [address] STREP PNEUMONIAE ANTIGEN, UR INEon 08-02-2023 STREPTOCOCCUS PNEUMONIAE AG PRESENCE IN URINE Negative Normal Negative [facility] Comment on above: Performed By: #### L [id number] #### [facility] ([facility]) [address] [place] [address] TROPONIN Ion 08-02-2023 Troponin I.cardiac [Mass/Vol] 0.03 ng/mL Normal 0.00-0.04 [facility] Comment on above: Performed By: #### L [id number] ####[facility] ([facility])[address] [place] [address] 30on 08-01-2023 30 The patient is Moder [...] ensuring proper positioning, support, and education. Normal [facility] APTTon 08-01-2023 ACTIVATED PARTIAL THROMBOPLASTIN TIME IN PPP BY COAGULATION ASSAY 24.1 Seconds Low 25.0-35.0 [facility] Comment on above: Result Comment: Clin ical significance of the APTT is questionable in the presence of heparin. Performed By: #### L [id number] #### [facility] ([facility]) [address] [place] [address] ARTERIAL BLOOD GAS WITH CO-O XIMETRYon 08-01-2023 Base excess Calc (Bld) [Moles/Vol] 20.9 mmol/L High -2.0-3.0 [facility] Comment on above: Order Comment: bipap Performed By: #### L [id number] #### [facility] ([facility]) [address] [place] [address] CARBOXYHEMOGLOBIN/H EMOGLOBIN TOTAL % IN BLOOD 1.5 % Normal 0.0-3.0 [facility] Comment on above: Order Comment: bipap Performed By: #### L [id number] #### [facility] ([facility]) [address] [place] [address] CO2 (Bld) [Partial pressure] 58 mm[Hg] Critically high 35-48 [facility] Comment on above: Order Comment: bipap Performed By: #### L [id number] #### [facility] ([facility]) [address] [place] [address] DEOXYGENATED HEMOGLOBIN IN BLOOD 5.4 % High 1-5 [facility] Comment on above: Order Comment: bipap Performed By: #### L [id number] #### [facility] ([facility]) [address] [place] [address] FIO2 40 % Normal [facility] Comment on above: Order Comment: bipap Performed By: #### L [id number] #### [facility] ([facility]) [address] [place] [address] HCO3 (Bld) [Moles/Vol] 48.5 mmol/L High 21.0-28.0 [facility] Comment on above: Order Comment: bipap Performed By: #### L [id number] #### [facility] ([facility]) [address] [place] [address] Hemoglobin (Bld) [Mass/Vol] 18.3 g/dL Critically high 11.7-17.4 [facility] Comment on above: Order Comment: bipap Performed By: #### L [id number] #### [facility] ([facility]) [address] [place] [address] METHEMOGLOBIN/100 IN BLOOD 0.8 % Normal 0.0-1.5 [facility] Comment on above: Order Comment: bipap Performed By: #### L [id number] #### [facility] ([facility]) [address] [place] [address] Oxygen (Bld) [Partial pressure] 66 mm[Hg] Low 83-100 [facility] Comment on above: Order Comment: bipap Performed By: #### L [id number] #### [facility] ([facility]) [address] [place] [address] OXYGEN SATURATION (%) IN ARTERIAL BLOOD 94.5 % Normal 94.0-98.0 [facility] Comment on above: Order Comment: bipap Performed By: #### L [id number] #### [facility] [address] [place] [address] OXYGENATED HEMOGLOBIN IN BLOOD 92.3 % Normal 90.0-95.0 [facility] Comment on above: Order Comment: bipap Performed By: #### L [id number] #### [facility] ([facility]) [address] [place] [address] pH (Bld) 7.53 [pH] High 7.35-7.45 [facility] Comment on above: Order Comment: bipap Performed By: #### L [id number] #### [facility] [address] [place] [address] RESPIRATORY RATE 14 Normal [facility] Comment on above: Order Comment: bipap Performed By: #### L [id number] #### [facility] ([facility]) [address] [place] [address] SOURCE OF OXYGEN Bi-PAP Normal [facility] Comment on above: Order Comment: bipap Performed By: #### L [id number] #### [facility] ([facility]) [address] [place] [address] B-TYPE NATRIURETIC PEPTIDEon 08-01-2023 Natriuretic peptide B (Bld) [Mass/Vol] 145 pg/mL High 0-100 [facility] Comment on above: Performed By: #### L [id number] #### [facility] ([facility]) [address] [place] [address] BLOOD CULTUREon 08-01-2023 Bacteria identified Cx Nom (Bld) No growth at 5 days Normal [facility] Comment on above: Performed By: #### L [id number] #### [facility] ([facility]) [address] [place] [address] CBC WITH AUTO DIFFERENTIALon 08-01-2023 Basophils (Bld) [#/Vol] 0.02 10*3/uL Normal 0.00-0.20 [facility] Comment on above: Performed By: #### L [id number] #### [facility] ([facility]) [address] [place] [address] Basophils/100 WBC (Bld) 0.2 % Normal 0.0-1.0 [facility] Comment on above: Performed By: #### L [id number] #### [facility] ([facility]) [address] [place] [address] Eosinophils (Bld) [#/Vol] 0.01 10*3/uL Normal 0.00-0.50 [facility] Comment on above: Performed By: #### L [id number] #### [facility] ([facility]) [address] [place] [address] Eosinophils/100 WBC (Bld) 0.1 % Normal 0.0-6.0 [facility] Comment on above: Performed By: #### L [id number] #### [facility] ([facility]) [address] [place] [address] Erythrocyte distribution width (RBC) [Ratio] 13.2 % Normal 11.5-15.0 [facility] Comment on above: Performed By: #### L [id number] #### [facility] ([facility]) [address] [place] [address] ERYTHROCYTE MEAN CORPUSCULAR HEMOGLOBIN CONCENTRATION (G/DL) BY AUTOMATED 33.1 g/dL Normal 32.0-35.0 [facility] Comment on above: Performed By: #### L [id number] #### [facility] ([facility]) [address] [place] [address] Hematocrit (Bld) [Volume fraction] 54.1 % High 36.0-48.0 [facility] Comment on above: Performed By: #### L [id number] #### [facility] [address] [place] [address] Hemoglobin (Bld) [Mass/Vol] 17.9 g/dL High 12.0-15.0 [facility] Comment on above: Performed By: #### L [id number] #### [facility] ([facility]) [address] [place] [address] Immature granulocytes (Bld) [#/Vol] 0.10 10*3/uL Normal 0.00-0.20 [facility] Comment on above: Performed By: #### L [id number] #### [facility] ([facility]) [address] [place] [address] Immature granulocytes/100 WBC (Bld) 1.1 % High 0.0-1.0 [facility] Comment on above: Performed By: #### L [id number] #### [facility] ([facility]) [address] [place] [address] Lymphocytes (Bld) [#/Vol] 0.40 10*3/uL Low 1.20-4.00 [facility] Comment on above: Performed By: #### L [id number] #### [facility] ([facility]) [address] [place] [address] Lymphocytes/100 WBC (Bld) 4.2 % Low 20.0-45.0 [facility] Comment on above: Performed By: #### L [id number] #### [facility] ([facility]) [address] [place] [address] MCH (RBC) [Entitic mass] 30.6 pg Normal 27.0-33.0 [facility] Comment on above: Performed By: #### L [id number] #### [facility] ([facility]) [address] [place] [address] MCV (RBC) [Entitic vol] 92.5 fL Normal 82.0-98.0 [facility] Comment on above: Performed By: #### L [id number] #### [facility] ([facility]) [address] [place] [address] Monocytes (Bld) [#/Vol] 0.50 10*3/uL Normal 0.10-1.00 [facility] Comment on above: Performed By: #### L [id number] #### [facility] ([facility]) [address] [place] [address] Monocytes/100 WBC (Bld) 5.3 % Normal 5.0-12.0 [facility] Comment on above: Performed By: #### L [id number] #### [facility] ([facility]) [address] [place] [address] Neutrophils (Bld) [#/Vol] 8.47 10*3/uL High 1.60-7.60 [facility] Comment on above: Performed By: #### L [id number] #### [facility] ([facility]) [address] [place] [address] Neutrophils/100 WBC (Bld) 89.1 % High 40.0-72.0 [facility] Comment on above: Performed By: #### L [id number] #### [facility] ([facility]) [address] [place] [address] NRBC (PER 100 WBCS) BY AUTOMATED COUNT 0.0 % Normal 0 [facility] Comment on above: Performed By: #### L [id number] #### [facility] ([facility]) [address] [place] [address] PLATELETS (10*3/UL) IN BLOOD AUTOMATED COUNT 265 10*3/uL Normal 150-400 [facility] Comment on above: Performed By: #### L [id number] #### [facility] ([facility]) [address] [place] [address] RBC (Bld) [#/Vol] 5.85 10*6/uL High 3.80-5.00 [facility] Comment on above: Performed By: #### L [id number] #### [facility] [address] [place] [address] WBC (Bld) [#/Vol] 9.50 10*3/uL Normal 4.00-10.60 [facility] Comment on above: Performed By: #### L [id number] #### [facility] ([facility]) [address] [place] [address] COMPREHENSIVE METABOLIC PANE Matty 08-01-2023 Albumin [Mass/Vol] 3.5 g/dL Normal 3.5-5.7 [facility] Comment on above: Performed By: #### L [id number] #### [facility] ([facility]) [address] [place] [address] ALP [Catalytic activity/Vol] 54 U/L Normal 34-104 [facility] Comment on above: Performed By: #### L [id number] #### [facility] ([facility]) [address] [place] [address] ALT [Catalytic activity/Vol] 10 U/L Normal 7-52 [facility] Comment on above: Performed By: #### L [id number] #### [facility] ([facility]) [address] [place] [address] Anion gap [Moles/Vol] 10 mmol/L Normal 7-20 [facility] Comment on above: Performed By: #### L [id number] #### [facility] ([facility]) [address] [place] [address] AST [Catalytic activity/Vol] 8 U/L Low 13-39 [facility] Comment on above: Performed By: #### L [id number] #### [facility] ([facility]) [address] [place] [address] Bilirubin [Mass/Vol] 0.9 mg/dL Normal 0.3-1.0 [facility] Comment on above: Performed By: #### L [id number] #### [facility] [address] [place] [address] Calcium [Mass/Vol] 9.0 mg/dL Normal 8.6-10.3 [facility] Comment on above: Performed By: #### L [id number] #### [facility] [address] [place] [address] Chloride [Moles/Vol] 90 mmol/L Low 98-107 [facility] Comment on above: Performed By: #### L [id number] #### [facility] ([facility]) [address] [place] [address] CO2 [Moles/Vol] 40 mmol/L High 21-31 [facility] Comment on above: Performed By: #### L [id number] #### [facility] ([facility]) [address] [place] [address] Creatinine [Mass/Vol] 0.60 mg/dL Normal 0.60-1.20 [facility] Comment on above: Performed By: #### L [id number] #### [facility] ([facility]) [address] [place] [address] GLOMERULAR FILTRATION RATE ML/MIN/1.73 SQ M.PREDICTED 111.3 mL/min/1.73m*2 Normal >60.0 [facility] Comment on above: Result Comment: [facility]???s estimated glomerular filtration rate (eGFR) will [...] individuals. Performed By: #### L [id number] #### [facility] [address] [place] [address] Glucose [Mass/Vol] 280 mg/dL High 70-100 [facility] Comment on above: Performed By: #### L [id number] #### [facility] ([facility]) [address] [place] [address] Potassium [Moles/Vol] 3.5 mmol/L Normal 3.5-5.1 [facility] Comment on above: Performed By: #### L [id number] #### [facility] ([facility]) [address] [place] [address] Protein [Mass/Vol] 6.4 g/dL Normal 6.0-8.3 [facility] Comment on above: Performed By: #### L [id number] #### [facility] ([facility]) [address] [place] [address] Sodium [Moles/Vol] 136 mmol/L Normal 136-145 [facility] Comment on above: Performed By: #### L [id number] #### [facility] ([facility]) [address] [place] [address] Urea nitrogen [Mass/Vol] 27 mg/dL High 7-25 [facility] Comment on above: Performed By: #### L [id number] #### [facility] ([facility]) [address] [place] [address] UREA NITROGEN/CREATININE (MASS RATIO) IN SER/PLAS 45.0 Normal [facility] Comment on above: Performed By: #### L [id number] #### [facility] ([facility]) [address] [place] [address] CONSULTon 08-01-2023 CONSULT ----- ----- Attestation signed [...] PMH of Asthma, who presented intimally to [facility] on 07/25 due to SOB that [...] to 76 mmHg. She was transferred to [facility] for Right heart Catheterization. She reports [...] likely d (more content not included)... Normal [facility] EXTRACTABLE NUCLEAR ANTIGEN ANTIBODIESon 08-01-2023 ANTI SM AB Negative Normal [facility] Comment on above: Performed By: #### L [id number] #### [facility] ([facility]) [address] [place] [address] ANTI SM/ANTIRNP AB Negative Normal [facility] Comment on above: Performed By: #### L [id number] #### [facility] ([facility]) [address] [place] [address] GRAM STAINon 08-01-2023 GRAM STAIN RESULT Normal [facility] Comment on above: Result Comment: Spec imen contains >25 Epithelial Cells/LPF, unsuitable for culture. Please submit a new specimen >25 Squamous Epithelial Cells Per Low Power Field >25 Polys Per Low Power Field Many Gram positive cocci in pairs Many Gram positive bacilli Performed By: #### L [id number] #### [facility] ([facility]) [address] [address] HPon 08-01-2023 HP ----- ----- Attestation signed [...] PMH of Asthma, who presented intimally to [facility] on 07/25 due to SOB that [...] to 76 mmHg. She was transferred to [facility] for Right heart Catheterization. She reports [...] likely d (more content not included)... Normal [facility] HP ----- ----- Attestation signed by [...] Age - 47 [facility] 1975 [id number] Date of Admission - 08/01/2023 1:47 AM Chief Complaint Initial presentation to [facility] with worsening shortness of breath, transferred to [facility] for right heart cath History of Present Illness 47-year-old female who presented to [facility] on 07/25 with 4 days of [...] following the patient's, who recommended transfer to [facility] for right heart cath. At [facility] Medication at [place] [facility]: Tylenol, [...] for: PREALBUMIN, TSH, T3FREE, FREET4, CORTISOL, FEV1, [id number], DLCO, RVSP, HDL, LDL No results found for: [id number], IRON, (more content not included)... Normal [facility] MAGNESIUMon 08-01-2023 Magnesium [Mass/Vol] 1.9 mg/dL Normal 1.9-2.7 [facility] Comment on above: Performed By: #### L [id number] ####[facility] ([facility])[address] [place] [address] MPO/PR3 REFLEX TO ANCAon MYELOPEROXIDASE (MPO) AB, IGG 0 AU/mL Normal 0-19 [facility] Comment on above: Result Comment: INTE RPRETIVE INFORMATION: Myeloperoxidase Abs, IgG 19 AU/mL or Less ......... Negative 20-25 AU/mL .............. Equivocal 26 AU/mL or Greater ...... Positive Approximately 90% of patients with a P-ANCA pattern by IFA have antibodies specific for MPO. Performed By: #### L [id number] #### [facility] ([facility]) [address] [place] [address] SERINE PROTEINASE 3 (PR3) AB, IGG 1 AU/mL Normal 0-19 [facility] Comment on above: Result Comment: Myeloperoxidase [...] have antibodies specific for PR3. Performed By: [employer] ([employer]) [address] [place] [address] [employer] Tech: Saturnino Rai MD, PhD CLIA Number: [id number] Performed By: #### L [id number] #### [facility] ([facility]) [address] [place] [address] PHOSPHORUSon 08-01-2023 Magnesium [Mass/Vol] 3.8 mg/dL Normal 2.5-5.0 [facility] Comment on above: Performed By: #### L [id number] #### [facility] ([facility]) [address] [place] [address] POCT GLUCOSE METER UNSOLICIT ED RESULTSon 08-01-2023 Glucose [Mass/Vol] 310 mg/dL High 70-105 [facility] Comment on above: Order Comment: Waive d Testing in the ED is performed under the ED CLIA certificate #[id number]. Result Comment: ebol tz Performed By: #### L [id number] #### [facility] ([facility]) [address] [place] [address] Glucose [Mass/Vol] 233 mg/dL High 70-105 [facility] Comment on above: Order Comment: Waive d Testing in the ED is performed under the ED CLIA certificate #[id number]. Result Comment: [email or web address] Performed By: #### L [id number] #### [facility] ([facility]) [address] [place] [address] PROCALCITONIN TESTon 023 PROCALCITONIN IN BLOOD 0.03 ng/mL Normal 0.00-0.10 [facility] Comment on above: Result Comment: Susp [...] PCT<0.5ng/mL Performed By: #### L [id number] #### [facility] ([facility]) [address] [place] [address] PROTIME-INRon 08-01-2023 INR IN PPP BY COAGULATION ASSAY 1.10 Normal 0.90-1.10 [facility] Comment on above: Result Comment: [facility] P RECOMMENDED INR FOR WARFARIN THERAPY CONDITION [...] 1995;[id number]. Performed By: #### L [id number] #### [facility] ([facility]) [address] [place] [address] PROTHROMBIN TIME (PT) IN PPP BY COAGULATION ASSAY 14.3 Seconds Normal 12.3-14.8 [facility] Comment on above: Performed By: #### L [id number] #### [facility] ([facility]) [address] [place] [address] TROPONIN Ion 08-01-2023 Troponin I.cardiac [Mass/Vol] 0.02 ng/mL Normal 0.00-0.04 [facility] Comment on above: Performed By: #### L [id number] #### [facility]) [address] [place] [address] [id number] 04-18-2020 SARS-CoV-2 Not Detected Normal Not Detected [facility] in Hospital Comment on above: Result Comment: (NOT E) This test was developed and its performance characteristics determined by [employer]. This test has not been FDA cleared [...] detected) result in this assay. Performed At: [facility] [address] [facility] [place] [id number] Felisha Martinez MD Ph:[phone] Performed By: #### A COV #### [facility] [address] [place], [place] [id number] Headline Writer: Lonnie Lozano MD Encounters Encounter Date Encounter Type Care Provider Facility Start: 10-29-2023 End: 10-29-2023 ambulatory [facility] Start: 10-10-2023 Evaluation and management of inpatient [facility] Start: 10-10-2023 Evaluation and management of inpatient [facility] Start: 10-09-2023 Evaluation and management of inpatient [facility] Start: 10-09-2023 ambulatory [facility] Start: 10-09-2023 End: 10-10-2023 Evaluation and management of inpatient [facility] Start: 09-04-2023 End: 09-04-2023 ambulatory [facility] Start: 08-29-2023 End: 08-30-2023 ambulatory [facility] Start: 08-28-2023 End: 08-28-2023 ambulatory [facility] Start: 08-08-2023 Evaluation and management of inpatient CARLEY GOODRICH [facility] Start: 08-07-2023 Evaluation and management of inpatient VENTURA ARAUJO [facility] Start: 08-07-2023 Evaluation and management of inpatient DB FABI [facility] Start: 08-02-2023 Evaluation and management of inpatient LISSETTE DELGADO [facility] Start: 08-02-2023 ambulatory LISSETTE DELGADO [facility] Start: 08-02-2023 Evaluation and management of inpatient LISSETTE DELGADO [facility] Start: 08-02-2023 Evaluation and management of inpatient LISSETTE DELGADO [facility] Start: 08-01-2023 End: 08-09-2023 Evaluation and management of inpatient CARLEY GOODRICH [facility] Start: 04-15-2020 End: 04-16-2020 Patient encounter procedure [facility] Start: 04-15-2020 End: 04-15-2020 Subsequent hospital visit by physician [facility] Comment on above: Arrived Procedures Date Procedure Procedure Detail Performing Clinician Start: 04-15-2020 COVID-19 [facility]ORY [facility] Plan of Treatment Date Care Activity Detail Author Start: 05-18-2020 Influenza vaccination Flu vaccine (# 1) [place], [place] Start: 2015 Lipid panel Lipid screen [place], [place] Start: 1996 Screening for malign ant neoplasm of cervix Cervical cancer screen [place], [place] Start: 1994 DTaP/Tdap/Td vaccine (1 - Tdap) DTaP/Tdap/Td vaccine (1 - Tdap) [place], [place] Start: 1990 HIV screening HIV screen [place], [place] End: 04-15-2020 Covid-19 Ambulatory Covid-19 Ambulatory Lab Routine Once for 1 Occurrences starting 04/15/2020 until 04/15/2020 [place], [place] Comment on above: Once for 1 Occurrenc es starting 04/15/2020 until 04/15/2020 Covid-19 Ambulatory Covid-19 Amb ulatory Lab Routine 04/15/2020 6:59 AM EDT [place], [place] Payers Date Payer Category Payer Private Health Insurance [id number] 2014 Unknown [id number] 2014 Unknown [employer] OCTAVIANO CURRY [address] [id number] 2014-Present [phone] [address] [place] [address] [id number] 1975 Unknown [id number] Social History Date Type Detail Facility Tobacco smoking status CAIS Unknown if ev er smoked [place], [place] Sex Assigned At Not on file [place] Clinical Notes 08-02-2023 to 10-29-2023 Note Date & Type Note Facility 10-29-2023 Note [facility] Subjective Daniel Lynn is a [...] evidence of ostium secundum ASD with significant siqz-ld-hwgua shunting across it, severe pulmonary hypertension and [...] pulmonary AV malformation or other source of asix-nq-idvgy shunting. She was started on therapy with [...] mg) by aubrie (more content not included)... [facility] 10-10-2023 Note Patient discharged w ith copy of AVS. IV removed, all belongings with patient. Patient provided post cath discharge instructions. All questions and concerns addressed. [facility] 10-10-2023 Note 10/10/23 1047 Admission Assessment [...] Discharge? Yes Does the patient have a patient case manager assigned to them through their [...] link and activate MyChart? MyChart already active [facility] 10-09-2023 Note Patient: Daniel bernstein Procedure Information Date/Time: 10/09/23 1300 Procedure: Atrial septal defect closure Location: [facility] COMPLAINT MANAGER 3 / [facility] (Cath) Providers: Chris Florez MD Clinical information reviewed: Allergies Meds Physical Exam Airway Mallampati: III Cardiovascular Rhythm: regular Rate: normal Dental Pulmonary - normal exam Abdominal - normal exam Anesthesia Plan ASA 3 other (Conscious sedation) intravenous induction Anesthetic plan and risks discussed with patient. Use of blood products discussed with patient who consented to blood products. Plan discussed with attending. Additional Equipment Requests [facility] 08-28-2023 Note MD Cardiology - [facility] Subjective Daniel Lynn is a 47 y.o. year old female patient being seen for follow up [facility]. Says her insurance will only pay [...] evidence of ostium secundum ASD with significant dkgo-fe-pxmlb shunting across it, severe pulmonary hypertension and [...] pulmonary AV malformation or other source of yrec-pc-xvpic shunting. She was started on therapy with [...] 0.42 (L) 08/09/2023 (more content not included)... [facility] 08-09-2023 Note Called the [facility] for home [phone] and faxed script /f2f [phone] They are able to set up home . Patient given tank and advised to call [facility] once home( in route) Received fax, on phone with rep at [facility]. Received confirmation they have order and will set up for patient, [facility] 08-09-2023 Note Met with Patient bed [...] arrangements. Medical team notified of Pt decision [facility] 08-09-2023 Note Hospital Medicine Discharge Summary Final Discharge Diagnosis: Acute hypoxic respiratory failure, likely due to Pulmonary Hypertension Large secundum ASD with bidirectional flow. The largest septal defect measured 3.5 cm, confirmed by Cardiac MRI & MATT New onset DM-II Admission Diagnosis: Dyspnea on exertion [R06.09] Hospital course: 47-year-old female who presented to [facility] on 07/25 with 4 days of [...] following the patient's, who recommended transfer to [facility] for right heart cath. At [facility] Medication at [place] [facility]: Tylenol, [...] COVID-pneumonia. Patient was transferred to medical ICU [facility] for hypoxic respiratory failure likely due [...] Provider Department Center 08/28/2023 2:15 PM Chris Florez MD [facility] Your medication list [...] Your Medications These medications were sent to [facility]/pharmacy #[id number] - [place], [place] - [address] [address] furosemide 40 mg tablet insulin detemir (more content not included)... [facility] 08-09-2023 Note ------ Attestation signed by Kvng Kumar MD at 08/09/2023 11:18 PM I reviewed the salient portions of the patient history. Agree with the noted assessment and plan. Kvng Kumar MD [facility] Pulmonary and Critical Care Medicine ------ [...] Date Asthma COPD (chronic obstructive pulmonary disease) ([facility]) Diabetes mellitus ([facility]) Hypertension MTHFR gene mutation Obesity [...] shifts: In: 1 (more content not included)... [facility] 08-09-2023 Note 08/09/23 0920 Home Oxygen Therapy Evaluation Pulse Oximetry on room air at Rest 94 Pulse Ox on O2 with nasal cannula while at rest 94 (3 lpm) Pulse Ox on room air while walking 84 Pulse Ox on O2 with nasal cannula while walking 94 (3 lpm) Patient Qualification for home oxygen Qualifies Patient qualifies for home oxygen 3 lpm. [facility] 08-08-2023 Note Hospital Medicine Daily Progress Note - 08/08/2023 1:15 PM; Room: 310/3104- Admission: 08/01/2023 1:47 AM; Length of stay: 7 days THE HOSPITALIST TEAM PREFERS TO USE [employer] FOR COMMUNICATION 7AM-7PM. IF I DO NOT RESPOND WITHIN 15 MINUTES, PLEASE PAGE ME/CALL THROUGH THE COMPUTER LAB PARA PROFESSIONAL. FROM 7PM-7AM, PLEASE PAGE [phone](COVR) Code Status: Full Code Barriers to Discharge: [...] Results from last 7 days Lab Units 08/08/2345508/07/23426 WBC AUTO 10*3/uL 8.55 9.05 HEMOGLOBIN g/dL [...] TSH 0.56 08/03/2023 No results found for: [id number], IRON, TIBC, C3, C4, PHANI, CANCA, ASO, [...] vascular detail. FI (more content not included)... [facility] 08-08-2023 Note Nutrition Screening Assessment: Patient Name: Daniel Lynn : 1975 Date of Assessment: 08/08/23 Nutrition re-screen completed Past Medical History: Diagnosis Date Asthma COPD (chronic obstructive pulmonary disease) ([facility]) Diabetes mellitus ([facility]) Hypertension MTHFR gene mutation Obesity [...] Comments: Entree salad, tomato, cucumber, ranch and prydeinig dressing, diet coke, quesadilla with grilled chicken [...] with questions and contact the dietitian via [employer] chat 8A-4P Sunday-Sunday. Or call the dietitian's office at [email or web address] [phone]. For weekends/holidays, the dietitian's can be reached by paging [phone] from 9A-3P. Unable to be reached via epic chat on Sunday & .) [facility] 08-08-2023 Note ------ Attestation signed by Raza Leonard MD at 08/08/2023 12:46 PM I reviewed the salient portions of the patient history. I have seen and examined the patient during rounds with the resident/fellow. I repeated the askew components of the exam. Agree with the noted assessment and plan. Raza Leonard MD [facility] Pulmonary interventional and Critical Care Medicine [...] Date Asthma COPD (chronic obstructive pulmonary disease) ([facility]) Diabetes mellitus ([facility]) Hypertension MTHFR gene mutation Obesity [...] MSK: no my (more content not included)... [facility] 08-08-2023 Note Occupational Therapy Occupational Therapy Evaluation Patient Name: Daniel Lynn : 1975 Today's Date: 08/08/2023 Time In: 742 Time Out: 754 47 y/o female adm from OSH with pneumonia and for workup for atrial septal defect. [facility] 08/04/23 General Subjective: friendly and cooperative, reports [...] Level of Function Prior Function Level of Craven: Independent with ADLs and functional transfers, Independent [...] Eating meals?: None (Independent) Total Score OT [facility]: 24 Assessment/Plan OT Assessment OT Education/Comments: may benefit to use shower chair, brief discussion about ws/ec/pacing with good verbal return Plan OT Plan: No skilled OT Equipment Recommended: (ssc) OT - Discharge Recommendations Placed: Yes OT Goals Multi-Disciplinary Problems (from Occupational Therapy) Active Problems Not on file [facility] 08-08-2023 Note ------ Attestation signed by [...] Transesophageal Echo (MATT) Result Date: 08/07/2023 1 MD Heart and Vascular Center [facility] Heart Station [address] [place] [address] [phone] (fax) Transesophageal Echocardiogram-[facility] Name: DANIEL LYNN Study Date: 08/07/2023 04:01 PM B/P: 124 mmHg/80 mmHg HR: 97 bpm Date of : 1975 Location: [facility] Height: 62 in. Age: 47 year(s) Patient Room: 3233 Weight: 268 lb. Gender: Female Patient Status: InPt BSA: 2.16 m2 Indication: pre-op ASD Examination: MATT/Limited Doppler/CFI, 3D images Image Quality: Good Patient Consent: Informed, written consent was obtained for the procedure Exam Location: A MATT was performed in the Storage Brine Worker without complications Anesthesia Pharyngeal anesthesia with viscous [...] aortic valve regurgi (more content not included)... [facility] 08-07-2023 Note Patient: Daniel rizvi Procedure Information Date/Time: 08/07/23 1000 Procedures: Coronary angiography Right heart cath Location: [facility] COMPLAINT MANAGER 2 BIPLANE / [facility] (Cath) Providers: Chris Florez MD Clinical information reviewed: Allergies Meds Physical [...] with fellow and attending. Additional Equipment Requests [facility] 08-07-2023 Note H&P reviewed. RHC an d cardiac CT c/w PH and ASD. Plan for RHC/coronary angiogram for assessment of ASD closure. Procedures' details, risks and benefits discussed with the patient and she's agreeable. 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 [facility] 08-07-2023 Note ------ Attestation signed by [...] Bubble Study Result Date: 08/02/2023 1 1 MD Heart and Vascular Center [facility] Heart Station [address] [place] [address] (fax) Echocardiogram-[facility] Name: DANIEL LYNN Study Date: 08/02/2023 09:04 AM B/P: 121 mmHg/88 mmHg HR: 66 bpm Date of : 1975 Location: [facility] Height: 62 in. Age: 47 year(s) [...] tricuspid valve debora (more content not included)... [facility] 08-07-2023 Note ------ Attestation signed by Kvng Kumar MD at 08/07/2023 11:57 PM I reviewed the salient portions of the patient history. I have seen and examined the patient during rounds with the resident/fellow. I repeated the askew components of the exam. Agree with the noted assessment and plan. Kvng Kumar MD [facility] Pulmonary and Critical Care Medicine ------ Medical ICU Progress Note Patient - Daniel Lynn Age - 47 y.o. - 1975 N - [id number] [facility] # - [id number] Date of Admission - 08/01/2023 1:47 AM HPI/Hospital Course Subjective 47-year-old female who presented to [facility] on 07/25 with 4 days of [...] following the patient's, who recommended transfer to [facility] for right heart cath. At [facility] Medication at [place] [facility]: Tylenol, [...] COVID-pneumonia. Patient was transferred to medical ICU [facility] for hypoxic respiratory failure likely due [...] 24 hours) at (more content not included)... [facility] 08-06-2023 Note ------ Attestation signed by [...] Bubble Study Result Date: 08/02/2023 1 1 MD Heart and Vascular Center [facility] Heart Station [address] [place] [address] [phone] (fax) Echocardiogram-[facility] Name: DANIEL LYNN Study Date: 08/02/2023 09:04 AM B/P: 121 mmHg/88 mmHg HR: 66 bpm Date of : 1975 Location: [facility] Height: 62 in. Age: 47 year(s) [...] Global left ventricu (more content not included)... [facility] 08-06-2023 Note ------ Attestation signed by [...] Course Subjective 47-year-old female who presented to [facility] on 07/25 with 4 days of [...] following the patient's, who recommended transfer to [facility] for right heart cath. At [facility] Medication at [facility]: Tylenol, [...] COVID-pneumonia. Patient was transferred to medical ICU [facility] for hypoxic respiratory failure likely due [...] Decrease breath sounds (more content not included)... [facility] 08-05-2023 Note Subjective Daniel Lynn is a 47 y.o. female with PMH of Asthma and Obesity who was initially evaluated in [place] on 07/25 with with 4 days of [...] the patient and they recommended transfer to [facility] for right heart catherization. She arrived to [facility] 08/01 where she was admitted to [...] Neurological: Mental Stat (more content not included)... [facility] 08-05-2023 Note Subjective Daniel Lynn is a 47 y.o. female with PMH of Asthma and Obesity who was initially evaluated in [place] on 07/25 with with 4 days of [...] the patient and they recommended transfer to [facility] for right heart catherization. She arrived to [facility] 08/01 where she was admitted to [...] Neurological: Mental Stat (more content not included)... [facility] 08-05-2023 Note Cardiology Progress Note Subjective [...] Bubble Study Result Date: 08/02/2023 1 1 MD Heart and Vascular Center [facility] Heart Station [address] [place] [address] [phone] (fax) Echocardiogram-[facility] Name: DANIEL LYNN Study Date: 08/02/2023 09:04 AM B/P: 121 mmHg/88 mmHg HR: 66 bpm Date of : 1975 Location: [facility] Height: 62 in. Age: 47 year(s) [...] thickness is mildl (more content not included)... [facility] 08-05-2023 Note ------ Attestation signed by [...] We will obtain a baseline PCO2, and rn new graduate PCO2 without using BiPAP, to see if we can qualify her for BiPAP at home. Clinically patient is at very high risk for obstructive sleep apnea , and also have consistent history. ------ Medical ICU Progress Note Patient - Daniel Lynn [facility] 47 [facility] 1975 [id number] Date of Admission - 08/01/2023 1:47 AM HPI/Hospital Course Subjective 47-year-old female who presented to [facility] on 07/25 with 4 days of [...] following the patient's, who recommended transfer to [facility] for right heart cath. At [facility] Medication at [place] [facility]: Tylenol, [...] COVID-pneumonia. Patient was transferred to medical ICU [facility] for hypoxic respiratory failure likely due [...] via nasal cannula. (more content not included)... [facility] 08-04-2023 Note ------ Attestation signed by Isai Georeg MD at 08/04/2023 2:22 PM I personally [...] Bubble Study Result Date: 08/02/2023 1 1 MD Heart and Vascular Center [facility] Heart Station [address] [place] [address] [phone] (fax) Echocardiogram-[facility] Name: DANIEL LYNN Study Date: 08/02/2023 09:04 AM B/P: 121 mmHg/88 mmHg HR: 66 bpm Date of : 1975 Location: [facility] Height: 62 in. Age: 47 year(s) [...] Value Normal Value (more content not included)... [facility] 08-04-2023 Note ------ Attestation signed by [...] Lynn Age - 47 y.o. - 1975 [facility] # - [id number] Date of Admission - 08/01/2023 1:47 AM HPI/Hospital Course Subjective 47-year-old female who presented to [facility] on 07/25 with 4 days of [...] following the patient's, who recommended transfer to [facility] for right heart cath. [facility], DuoNebs, Xanax, Lovenox for DVT prophylaxis, [...] COVID-pneumonia. Patient was transferred to medical ICU [facility] for hypoxic respiratory failure likely due [...] is 112/76 a (more content not included)... [facility] 08-03-2023 Note ------ Attestation signed by [...] Course Subjective 47-year-old female who presented to [facility] on 07/25 with 4 days of [...] following the patient's, who recommended transfer to [facility] for right heart cath. At [facility] Medication at [place] [facility]: Tylenol, [...] COVID-pneumonia. Patient was transferred to medical ICU [facility] for hypoxic respiratory failure likely due [...] move all extremities, (more content not included)... [facility] 08-03-2023 Note ------ Attestation signed by [...] an additional personal documentation from me. Await [facility] ------ Cardiology Progress Note Subjective Subjective: Daniel [...] Bubble Study Result Date: 08/02/2023 1 1 MD Heart and Vascular Center [facility] Heart Station [address] [place] [address] [phone] (fax) Echocardiogram-[facility] Name: DANIEL LYNN Study Date: 08/02/2023 09:04 AM B/P: 121 mmHg/88 mmHg HR: 66 bpm Date of : 1975 Location: [facility] Height: 62 in. Age: 47 year(s) [...] severely enlarged. Se (more content not included)... [facility] 08-02-2023 Note Patient: Daniel rizvi Procedure Information Date/Time: 08/02/23 1610 Procedure: Right heart cath Location: [facility] COMPLAINT MANAGER 3 / [facility] (Cath) Providers: Chris Florez MD Clinical information reviewed: Allergies Meds Physical Exam Airway Mallampati: III Cardiovascular Rhythm: regular Rate: normal Dental Pulmonary (+) decreased breath sounds Abdominal Anesthesia Plan ASA 3 other (Moderate sedation) Anesthetic plan and risks discussed with patient. Use of blood products discussed with patient who consented to blood products. Plan discussed with fellow and attending. Additional Equipment Requests [facility] 08-02-2023 Note Pharmacy Dosing Serv ice - Vancomycin Initial Consult Note Pharmacy has been consulted for the dosing and evaluation of Drug: Vancomycin Indication: pneumonia AUC 400-600 mg*hr/L and trough 10-20 mcg/mL Other Antimicrobial Regimens: cefepime 2g q8h Labs and Renal Function Total body weight: 122 kg (268 lb 8.3 oz) [place] body weight: 50.1 kg (110 lb 7.9 [...] Assessment / Comments: - 47yoF transferred to [facility] from OSH and admitted to ICU 08/01 for acute hypoxic respiratory failure likely due to severe pulmonary hypertension and potential pneumonia. Viral panel at OSH positive for rhinovirus. Procal upon admission to [facility] 0.03. WBC increased from 9.5 to [...] 08/02/23 Plan discussed with Betsy Eckert PharmD [facility] 08-02-2023 Note ------ Attestation signed by [...] MD PGY-2 Internal Medicine Resident [facility] 08-02-2023 Note ------ Attestation signed by Lissette [...] Lynn Age - 47 y.o. - 1975 [facility] # - [id number] Date of Admission - 08/01/2023 1:47 AM [...] mEq/L Final No results found for: PHVEN, VDM2ZZZ, PO2VEN, KOC0XUB, IONCALVEN CBC: Results from last 7 days [...] Infusions: As Need (more content not included)... [facility] Summary Purpose Family History No Family History Records FoundNo Family History Records Found Advance Directives No Advanced Directives Records FoundDocuments on File Type Date Recorded Patient Scanning Manager Expl anation Advance Directives and Living Will Power of Ice Cutter Additional Source Comments INFORMATION SOURCE (unrecogn ized section and content) DATE CREATED AUTHOR 04/18/2020 Adelaida landa DATE CREATED AUTHOR AUTHOR'S ORGANIZ ATION 11/15/2023 [facility] FOR RECORDS PERTAINING TO PATIENTS [...] BE BASED ON THE PRIMARY CLINICAL RECORDS. [employer] provides no warranty or guarantee of the accuracy or completeness of information in this document.
[2024-02-18 08:28] LABS: Hemoglobin 12.3 g/dL (12.0-16.0)
[2024-02-18 08:32] LABS: ABG PCO2 37.8 mmHg (35.0-45.0); Allen Test POSITIVE (POSITIVE); Base Excess ABG 1.4 mmol/L (-2.0-2.0); HCO3 ABG 25.6 mmol/L (22.0-26.0); Oxygen Saturation ABG 92.9 %; PO2 ABG 60.1 mmHg (80.0-100.0); pH ABG 7.439 (7.350-7.450)
[2024-02-18 08:33] LABS: O2 Mode RA; Puncture Site RR
[2024-02-18] MEDS: ALBUTEROL SULFATE 2.5 MG/3 ML VIAL NEB IH (09:39)
--- NOTE | 2024-02-18 09:46 | RT_ITS ---
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 Findings were considered accurate and reproducible, with exception of DLCO which did not meet ATS standards. Both pre- and post-bronchodilator values utilized for spirometry. Spirometry (based on pre-bronchodilator values): -FEV1/FVC: Normal @ 77% -FEV1: Reduced @ 65% -FVC: Reduced @ 68% -MTK61-74%: Reduced @ 51% -There is a positive bronchodilator resposne in ADS28-54%, but diagnostic and clinical significance is unclear. Lung volumes by plethysmography (based on pre-bronchodilator values): -RV: Normal @ 90% -TLC: Normal @ 122% -Airway resistance: Increased -Airway conductance: Decreased Diffusion capacity: -DLCO: Normal @ 92% when corrected for Hb 12.3g/dL Flow-volume loop: -Restriction with mild obstructive features Impressions: -Non-diagnostic spirometry with normal lung volumes and plethysmography. Overall appears to be an obesity pattern based on patient's BMI 50.5. There are subtle findings to suggest an underlying obstructive process which is obscured by the restriction. Clinical correlation required. Electronically Signed On 02-19-2024 15:50:17 EDT by Karlos Bauer
--- NOTE | 2024-02-18 09:49 | RESP.RT ---
See scanned chart
--- NOTE | 2024-02-20 18:18 | W.PM.PROCNOT ---
Date of procedure: 02/20/24 Procedure: 6 Minute Walk Date: 02/18/2024 Indication: Pulmonary hypertension, Chronic hypoxic respiratory failure MMRC: 0 Resting data: -BP: 115/71 -HR: 82 -SpO2: 94 -FiO2: RA -Jesica: 0 Description: 6 minute walk was initiated according to standard protocol. Patient ambulated for a total of 6 minutes with the lowest SpO2 at 88% at the end of the walk, the highest heart rate at 133, and highest Jesica 4. Recovery data: -BP: 120/68 -HR: 106 -SpO2: 96% -FiO2: RA -Jesica: 2 Ambulation: Patient ambulated a total of 335m which is 112% predicted. There were no stops reported. Impressions: Ambulatory desaturations at the end of the 6MW @ 88% on room air. Recommendations: Patient qualifies for supplemental O2. Technically, a second 6MW should have been initiated with application of supplemental O2 to assess the proper flow rate to resolve ambulatory hypoxemia. Clinical correlation required.
== END 2024-02-18 08:06 | disposition home or self-care (01) ==
LOC: CARD 08:05
PROVIDERS: PCP Family Medicine; Visit Provider Internal Medicine
DX: J45.909 Unspecified asthma, uncomplicated (principal); J96.11 Chronic respiratory failure with hypoxia; J96.12 Chronic respiratory failure with hypercapnia; I27.21 Secondary pulmonary arterial hypertension
CPT/HCPCS: 36415; 36600; 82805; 85018; 94060; 94618; 94726; 94729

== ENCOUNTER 2024-03-14 08:38 | Outpatient (OUT) | payer OTHER, SELFPAY ==
--- OUTSIDE RECORDS SUMMARY | 2024-03-14 08:55 | XMS_ITS | CCD ---
Author Organization [facility] Care Team Providers Care Computer Assistant Name Role Phone BRANDIE PACHECO Referring Unavailable FAVIO SANTIAGO Primary Care Unavailable Favio Santiago Primary Care Provider LISSETTE DELGADO Referring Unavailable AMERICOCARLEY Referring Unavailable [...] source) Lisinopril; Translations: [LISINOPRIL] Drug Allergy 08-01-20 [facility] Repository (1 source) Penicillins; Translations: [PENICILLINS] Propensity to adverse reactions to drug (disorder) 08-01-20 [facility] Repository (1 source) Sulfamethoxazole / Trimethoprim; Translations: [SULFAMETHOXAZOLE-TR IMETHOPRIM] Drug Allergy 08-01-20 [facility] Repository Problems Active Problems Problem Classification [...] Range Facility Orders Onlyon 11-06-2023 Orders Only [id number] Shelly Lynn 1975 F Date Provider Department Center 11/06/2023 CURT CRUMP [facility] No family history on file Normal [facility] Office Visiton 10-29-2023 Follow-up visit [id number] Shelly Lynn 1975 F Date Provider Department Center 10/29/2023 CHRIS CANNON [facility] No family history on file Level of Service:76374 MO OFFICE/OUTPATIENT ESTABLISHED MOD MDM 30 MIN Normal [facility] 30on 10-10-2023 30 The patient is [...] and behaviors that affect risk of falls Scott fall precautions as indicated by assessment Educate patient/family on patient safety, including physical limitations Problem: Discharge Planning Goal: Discharge to home or other facility with appropriate resources Outcome: Progressing Problem: Chronic Conditions and Co-morbidities Goal: Patient's chronic conditions and co-morbidity symptoms are monitored and maintained or improved Outcome: Progressing Normal [facility] 30 The patient is Moder ately [...] and behaviors that affect risk of falls Scott fall precautions as indicated by assessment Educate [...] and prevent overall improvement and discharge Normal [facility] DSon 10-10-2023 DS ----- ----- Attestation [...] a large atrial septal defect and significant ylef-vb-zyytg shunting across it, enlarged right-sided chambers, and [...] performed 10/10. Echocardiogram reviewed by Dr. Florez, rn acute, and without concerning findings. Patient cleared for [...] Center 10/29/2023 2:45 PM Chris Florez MD [facility] Your medication list [...] Medications These medications were sent to [facility] - [place], [place] - [address], [facility] [address] clopidogrel 75 mg tablet Daniel is allergic [...] are c (more content not included)... Normal [facility] HEMOGLOBIN AND HEMATOCRIT, B Naomy 10-10-2023 Hematocrit (Bld) [Volume fraction] 41.2 % Normal 36.0-48.0 [facility] Comment on above: Performed By: #### L [id number] #### [facility] (BEAKER) [address] [place] [address] Hemoglobin (Bld) [Mass/Vol] 13.7 g/dL Normal 12.0-15.0 [facility] Comment on above: Performed By: #### L [id number] #### [facility] (BEAKER) [address] [place] [address] HPon 10-09-2023 HP History Of Present Illness Daniel Lynn is a 48 y.o. female is here today for her scheduled ASD closure. She was initially seen on on 08/01/2023 with acute respiratory failure and hypoxia in hospital. Investigation revealed evidence of ostium secundum ASD with significant gygu-dv-qfidn shunting across it, severe pulmonary hypertension and [...] pulmonary AV malformation or other source of baml-lv-pexon shunting. She was started on therapy with [...] to se (more content not included)... Normal [facility] NURSNOTEon 10-09-2023 NURSNOTE Report given to Jo keita RN from [facility] Any medications or safety alerts were reviewed. Any pending diagnostics and notifications were also reviewed, as well as any safety concerns or issues, abnormal labs, abnormal imagining, and abnormal assessment findings. Questions were answered. Normal [facility] NURSNOTE Updated Dr Florez regarding IVF order. V.O. to hold IVF for now. [place] [facility] Orders Onlyon 10-03-2023 Orders Only [id number] Shelly Lynn 1975 F Date Provider Department Center 10/03/2023 Ngoc-LATASHA BARNEY [facility] No family history on file [facility] Prep for Procedureon 024 Prep for Procedure [id number] Shelly Lynn sti J 1975 F Date Provider Department Center 09/25/2023 166-SHIRA MCDANIELS [facility] No family history on file [facility] Prep for Procedureon 023 Prep for Procedure [id number] Shelly Lynn sti J 1975 F Date Provider Department Center 08/30/2023 CHRIS CANNON [facility] CARD [place] Count No family history on file [facility] Office Visiton 08-28-2023 Follow-up visit [id number] Shelly Lynn 1975 F Date Provider Department Center 08/28/2023 CHRIS CANNON [facility] No family history on file Level of Service:62955 MO OFFICE/OUTPATIENT ESTABLISHED HIGH MDM 40-54 MIN [facility] 30on 08-09-2023 30 Hvac Instructor received VM f or patient stating she needs assistance with the medications she was discharged with. Hvac Instructor reached out to patient who states that her INS will only cover 1/2 pill of Sildenafil per day. Patient continues to explain that she paid OOP for her first prescription of Sildenafil, but that she needs her Business Integration Analyst to reach out to INS to discuss this and have it resolved, she reports that she plans to call Dr. Felder's office Sunday to have them assist. No other needs voiced at this time, writer editor urged patient to call OTM line next week if she has any further issues with her medications. Normal [facility] 30 Problem: Pain - Adul t [...] and behaviors that affect risk of falls Scott fall precautions as indicated by assessment Educate [...] mucous memb (more content not included)... Normal [facility] BASIC METABOLIC PANELon 11-2 Anion gap [Moles/Vol] 9 mmol/L Normal 7-20 [facility] Comment on above: Performed By: #### L [id number] #### [facility] (BEAKER) [address] [place] [address] Calcium [Mass/Vol] 8.7 mg/dL Normal 8.6-10.3 [facility] Comment on above: Performed By: #### L [id number] #### [facility] (BEAKER) [address] [place] [address] Chloride [Moles/Vol] 100 mmol/L Normal 98-107 [facility] Comment on above: Performed By: #### L [id number] #### [facility] (BEAKER) [address] [place] [address] CO2 [Moles/Vol] 30 mmol/L Normal 21-31 [facility] Comment on above: Performed By: #### L [id number] #### [facility] (BEAKER) [address] [place] [address] Creatinine [Mass/Vol] 0.42 mg/dL Low 0.60-1.20 [facility] Comment on above: Performed By: #### L [id number] #### [facility] (BEAKER) [address] [place] [address] GLOMERULAR FILTRATION RATE ML/MIN/1.73 SQ M.PREDICTED 121.3 mL/min/1.73m*2 Normal >60.0 [facility] Comment on above: Result Comment: The [facility]???s estimated glomerular filtration rate (eGFR) will [...] individuals. Performed By: #### L [id number] #### [facility] ([facility]) [address] [place] [address] Glucose [Mass/Vol] 146 mg/dL High 70-100 [facility] Comment on above: Performed By: #### L [id number] #### [facility] ([facility]) [address] [place] [address] Potassium [Moles/Vol] 3.7 mmol/L Normal 3.5-5.1 [facility] Comment on above: Performed By: #### L [id number] #### [facility] ([facility]) [address] [place] [address] Sodium [Moles/Vol] 135 mmol/L Low 136-145 [facility] Comment on above: Performed By: #### L [id number] #### [facility] ([facility]) [address] [place] [address] Urea nitrogen [Mass/Vol] 17 mg/dL Normal 7-25 [facility] Comment on above: Performed By: #### L [id number] #### [facility] ([facility]) [address] [place] [address] UREA NITROGEN/CREATININE (MASS RATIO) IN SER/PLAS 40.5 Normal [facility] Comment on above: Performed By: #### L [id number] #### [facility] ([facility]) [address] [place] [address] CBCon 08-09-2023 Erythrocyte distribution width (RBC) [Ratio] 13.1 % Normal 11.5-15.0 [facility] Comment on above: Performed By: #### L [id number] #### [facility] (BEAKER) [address] [place] [address] ERYTHROCYTE MEAN CORPUSCULAR HEMOGLOBIN CONCENTRATION (G/DL) BY AUTOMATED 32.6 g/dL Normal 32.0-35.0 [facility] Comment on above: Performed By: #### L [id number] #### [facility] [address] [place] [address] Hematocrit (Bld) [Volume fraction] 43.5 % Normal 36.0-48.0 [facility] Comment on above: Performed By: #### L [id number] #### [facility] ([facility]) [address] [place] [address] Hemoglobin (Bld) [Mass/Vol] 14.2 g/dL Normal 12.0-15.0 [facility] Comment on above: Performed By: #### L [id number] #### [facility] ([facility]) [address] [place] [address] MCH (RBC) [Entitic mass] 30.3 pg Normal 27.0-33.0 [facility] Comment on above: Performed By: #### L [id number] #### [facility] ([facility]) [address] [place] [address] MCV (RBC) [Entitic vol] 92.9 fL Normal 82.0-98.0 [facility] Comment on above: Performed By: #### L [id number] #### [facility] ([facility]) [address] [place] [address] PLATELETS (10*3/UL) IN BLOOD AUTOMATED COUNT 178 10*3/uL Normal 150-400 [facility] Comment on above: Performed By: #### L [id number] #### [facility] ([facility]) [address] [place] [address] RBC (Bld) [#/Vol] 4.68 10*6/uL Normal 3.80-5.[address] [facility] Comment on above: Performed By: #### L [id number] #### [facility] ([facility]) [address] [place] [address] WBC (Bld) [#/Vol] 7.40 10*3/uL Normal 4.00-10.[address] [facility] Comment on above: Performed By: #### L [id number] #### [facility] ([facility]) [address] [place] [address] MAGNESIUMon 08-09-2023 Magnesium [Mass/Vol] 1.7 mg/dL Low 1.9-2.7 [facility] Comment on above: Performed By: #### L [id number] #### [facility] ([facility]) [address] [place] [address] NURSNOTEon 08-09-2023 NURSNOTE Discharge paperwork reviewed with pt; copy of paperwork given to pt. Reviewed new medications with pt. Pt expresses understanding of instructions. Pt currently waiting on family for ride home. Normal [facility] PHOSPHORUSon 08-09-2023 Magnesium [Mass/Vol] 4.3 mg/dL Normal 2.5-5.0 [facility] Comment on above: Performed By: #### L [id number] #### [facility] ([facility]) [address] [place] [address] POCT GLUCOSE METER UNSOLICIT ED RESULTSon 08-09-2023 Glucose [Mass/Vol] 151 mg/dL High 70-105 [facility] Comment on above: Order Comment: Waive d Testing in the ED is performed under the ED CLIA certificate #[id number]. Result Comment: [email or web address] Performed By: #### L [id number] #### [facility] ([facility]) [address] [place] [address] Glucose [Mass/Vol] 124 mg/dL High 70-105 [facility] Comment on above: Order Comment: Waive d Testing in the ED is performed under the ED CLIA certificate #[id number]. Result Comment: [email or web address] Performed By: #### L [id number] #### [facility] ([facility]) [address] [place] [address] Refillon 08-09-2023 Refill [id number] Shelly Lynn 1975 F Date Provider Department Center 08/09/2023 LIA DELGADORebecca [facility] 3AB [place] [facility] No family history on file Reason for Visit and Comments: Med Change Request [411] Normal [facility] 30on 08-08-2023 30 The patient is [...] Consider OT/PT consult to assist with strengthening/mobility Scott fall precautions as indicated by assessment Educate [...] symptoms for stability, deterioration, or improvement Normal [facility] 30 The patient is Moder ately [...] functionality and self care Outcome: Progressing Normal [facility] BASIC METABOLIC PANELon 11-2 Anion gap [Moles/Vol] 7 mmol/L Normal 7-20 [facility] Comment on above: Performed By: #### L [id number] #### [facility] ([facility] [address] [place] [address] Calcium [Mass/Vol] 8.5 mg/dL Low 8.6-10.3 [facility] Comment on above: Performed By: #### L [id number] #### [facility] (BEAKER) [address] [place] [address] Chloride [Moles/Vol] 102 mmol/L Normal 98-107 [facility] Comment on above: Performed By: #### L [id number] #### [facility] (BEAKER) [address] [place] [address] CO2 [Moles/Vol] 30 mmol/L Normal 21-31 [facility] Comment on above: Performed By: #### L [id number] #### [facility] (BEAKER) [address] [place] [address] Creatinine [Mass/Vol] 0.60 mg/dL Normal 0.60-1.20 [facility] Comment on above: Performed By: #### L [id number] #### [facility] (BEAKER) [address] [place] [address] GLOMERULAR FILTRATION RATE ML/MIN/1.73 SQ M.PREDICTED 111.3 mL/min/1.73m*2 Normal >60.0 [facility] Comment on above: Result Comment: [facility]???s estimated glomerular filtration rate (eGFR) will [...] group of individuals. Performed By: #### L [id number] #### [facility] ([facility]) [address] [place] [address] Glucose [Mass/Vol] 145 mg/dL High 70-100 [facility] Comment on above: Performed By: #### L [id number] #### [facility] ([facility]) [address] [place] [address] Potassium [Moles/Vol] 3.9 mmol/L Normal 3.5-5.1 [facility] Comment on above: Performed By: #### L [id number] #### [facility] ([facility]) [address] [place] [address] Sodium [Moles/Vol] 135 mmol/L Low 136-145 [facility] Comment on above: Performed By: #### L [id number] #### [facility] ([facility]) [address] [place] [address] Urea nitrogen [Mass/Vol] 22 mg/dL Normal 7-25 [facility] Comment on above: Performed By: #### L [id number] #### [facility] ([facility]) [address] [place] [address] UREA NITROGEN/CREATININE (MASS RATIO) IN SER/PLAS 36.7 Normal [facility] Comment on above: Performed By: #### L [id number] #### [facility] ([facility]) [address] [place] [address] CBCon 08-08-2023 Erythrocyte distribution width (RBC) [Ratio] 13.0 % Normal 11.5-15.0 [facility] Comment on above: Performed By: #### L [id number] #### [facility] ([facility]) [address] [place] [address] ERYTHROCYTE MEAN CORPUSCULAR HEMOGLOBIN CONCENTRATION (G/DL) BY AUTOMATED 31.8 g/dL Low 32.0-35.0 [facility] Comment on above: Performed By: #### L [id number] #### [facility] ([facility]) [address] [place] [address] Hematocrit (Bld) [Volume fraction] 47.5 % Normal 36.0-48.0 [facility] Comment on above: Performed By: #### L [id number] #### [facility] ([facility]) [address] [place] [address] Hemoglobin (Bld) [Mass/Vol] 15.1 g/dL High 12.0-15.0 [facility] Comment on above: Performed By: #### L [id number] #### [facility] ([facility]) [address] [place] [address] MCH (RBC) [Entitic mass] 29.7 pg Normal 27.0-33.0 [facility] Comment on above: Performed By: #### L [id number] #### [facility] ([facility]) [address] [place] [address] MCV (RBC) [Entitic vol] 93.3 fL Normal 82.0-98.0 [facility] Comment on above: Performed By: #### L [id number] #### [facility] ([facility]) [address] [place] [address] PLATELETS (10*3/UL) IN BLOOD AUTOMATED COUNT 190 10*3/uL Normal 150-400 [facility] Comment on above: Performed By: #### L [id number] #### [facility] ([facility]) [address] [place] [address] RBC (Bld) [#/Vol] 5.09 10*6/uL High 3.80-5.[address] [facility] Comment on above: Performed By: #### L [id number] #### [facility] (BEAKER) [address] [place] [address] WBC (Bld) [#/Vol] 8.55 10*3/uL Normal 4.00-10.[address] [facility] Comment on above: Performed By: #### L [id number] #### [facility] (BEAKER) [address] [place] [address] CTA CHEST W AND/OR WO IV CON [...] reasonably achievable. Electronically signed: Karlos Gallardo. Normal [facility] MAGNESIUMon 08-08-2023 Magnesium [Mass/Vol] 1.8 mg/dL Low 1.9-2.7 [facility] Comment on above: Performed By: #### L [id number] #### [facility] (BEAKER) [address] [place] [address] NURSNOTEon 08-08-2023 NURSNOTE Patient Name: Daniel Lynn [...] Pamela Babcock RN Rapid Response Team Nurse [phone] 08/08/2023 3:26 PM Normal [facility] PHOSPHORUSon 08-08-2023 Magnesium [Mass/Vol] 3.4 mg/dL Normal 2.5-5.0 [facility] Comment on above: Performed By: #### L [id number] ####[facility] (AKER)[address] [place] [address] POCT GLUCOSE METER UNSOLICIT ED RESULTSon 08-08-2023 Glucose [Mass/Vol] 331 mg/dL High 70-105 [facility] Comment on above: Order Comment: Waive d Testing in the ED is performed under the ED CLIA certificate #[id number]. Result Comment: [email or web address] Performed By: #### L [id number] #### [facility] (BEAKER) [address] [place] [address] Glucose [Mass/Vol] 249 mg/dL High 70-105 [facility] Comment on above: Order Comment: Waive d Testing in the ED is performed under the ED CLIA certificate #[id number]. Result Comment: [email or web address] Performed By: #### L [id number] #### [facility] ([facility] [address] [place] [address] Glucose [Mass/Vol] 277 mg/dL High 70-105 [facility] Comment on above: Order Comment: Waive d Testing in the ED is performed under the ED CLIA certificate #[id number]. Result Comment: [email or web address] Performed By: #### L [id number] #### [facility] ([facility]) [address] [place] [address] Glucose [Mass/Vol] 198 mg/dL High 70-105 [facility] Comment on above: Order Comment: Waive d Testing in the ED is performed under the ED CLIA certificate #[id number]. Result Comment: [email or web address] Performed By: #### L [id number] #### [facility] ([facility]) [address] [place] [address] Glucose [Mass/Vol] 111 mg/dL High 70-105 [facility] Comment on above: Order Comment: Waive d Testing in the ED is performed under the ED CLIA certificate #[id number]. Result Comment: [email or web address] Performed By: #### L [id number] #### [facility] ([facility]) [address] [place] [address] 30on 08-07-2023 30 Problem: Discharge Planning Goal: [...] practices Implement preventative oral hygiene regimen Normal [facility] BASIC METABOLIC PANELon 11- Anion gap [Moles/Vol] 9 mmol/L Normal 7-20 [facility] Comment on above: Performed By: #### L [id number] #### [facility] ([facility]ER) [address] [place] [address] Calcium [Mass/Vol] 8.5 mg/dL Low 8.6-10.3 [facility] Comment on above: Performed By: #### L [id number] #### [facility] (BEAKER) [address] [place] [address] Chloride [Moles/Vol] 98 mmol/L Normal 98-107 [facility] Comment on above: Performed By: #### L [id number] #### [facility] (BEAKER) [address] [place] [address] CO2 [Moles/Vol] 31 mmol/L Normal 21-31 [facility] Comment on above: Performed By: #### L [id number] #### [facility] (BEAKER) [address] [place] [address] Creatinine [Mass/Vol] 0.59 mg/dL Low 0.60-1.20 [facility] Comment on above: Performed By: #### L [id number] #### [facility] (BEAKER) [address] [place] [address] GLOMERULAR FILTRATION RATE ML/MIN/1.73 SQ M.PREDICTED 111.8 mL/min/1.73m*2 Normal >60.0 [facility] Comment on above: Result Comment: [facility]???s estimated glomerular filtration rate (eGFR) will [...] individuals. Performed By: #### L [id number] #### [facility] ([facility]) [address] [place] [address] Glucose [Mass/Vol] 210 mg/dL High 70-100 [facility] Comment on above: Performed By: #### L [id number] #### [facility] ([facility]) [address] [place] [address] Potassium [Moles/Vol] 3.8 mmol/L Normal 3.5-5.1 [facility] Comment on above: Performed By: #### L [id number] #### [facility] ([facility]) [address] [place] [address] Sodium [Moles/Vol] 134 mmol/L Low 136-145 [facility] Comment on above: Performed By: #### L [id number] #### [facility] ([facility]) [address] [place] [address] Urea nitrogen [Mass/Vol] 25 mg/dL Normal 7-25 [facility] Comment on above: Performed By: #### L [id number] #### [facility] ([facility]) [address] [place] [address] UREA NITROGEN/CREATININE (MASS RATIO) IN SER/PLAS 42.4 Normal [facility] Comment on above: Performed By: #### L [id number] #### [facility] ([facility]) [address] [place] [address] CBCon 08-07-2023 Erythrocyte distribution width (RBC) [Ratio] 13.0 % Normal 11.5-15.0 [facility] Comment on above: Performed By: #### L [id number] #### [facility] ([facility]) [address] [place] [address] ERYTHROCYTE MEAN CORPUSCULAR HEMOGLOBIN CONCENTRATION (G/DL) BY AUTOMATED 32.6 g/dL Normal 32.0-35.0 [facility] Comment on above: Performed By: #### L [id number] #### [facility] ([facility]) [address] [place] [address] Hematocrit (Bld) [Volume fraction] 47.3 % Normal 36.0-48.0 [facility] Comment on above: Performed By: #### L [id number] #### [facility] ([facility]) [address] [place] [address] Hemoglobin (Bld) [Mass/Vol] 15.4 g/dL High 12.0-15.0 [facility] Comment on above: Performed By: #### L [id number] #### [facility] ([facility]) [address] [place] [address] MCH (RBC) [Entitic mass] 30.1 pg Normal 27.0-33.0 [facility] Comment on above: Performed By: #### L [id number] #### [facility] ([facility]) [address] [place] [address] MCV (RBC) [Entitic vol] 92.6 fL Normal 82.0-98.0 [facility] Comment on above: Performed By: #### L [id number] #### [facility] ([facility]) [address] [place] [address] PLATELETS (10*3/UL) IN BLOOD AUTOMATED COUNT 194 10*3/uL Normal 150-400 [facility] Comment on above: Performed By: #### L [id number] #### [facility] ([facility]) [address] [place] [address] RBC (Bld) [#/Vol] 5.11 10*6/uL High 3.80-5.[address] [facility] Comment on above: Performed By: #### L [id number] #### [facility] ([facility]) [address] [place] [address] WBC (Bld) [#/Vol] 9.05 10*3/uL Normal 4.00-10.[address] [facility] Comment on above: Performed By: #### L [id number] #### [facility] ([facility]) [address] [place] [address] MAGNESIUMon 08-07-2023 Magnesium [Mass/Vol] 1.7 mg/dL Low 1.9-2.7 [facility] Comment on above: Performed By: #### L [id number] #### [facility] ([facility]) [address] [place] [address] NURSNOTEon 08-07-2023 NURSNOTE Report given to NEDRA dhillon in CVU. All questions answered at this time- patient belongings given from writer editor to RN. Normal [facility] PHOSPHORUSon 08-07-2023 Magnesium [Mass/Vol] 3.5 mg/dL Normal 2.5-5.0 [facility] Comment on above: Performed By: #### L [id number] #### [facility] ([facility]) [address] [place] [address] POCT GLUCOSE METER UNSOLICIT ED RESULTSon 08-07-2023 Glucose [Mass/Vol] 233 mg/dL High 70-105 [facility] Comment on above: Order Comment: Waive d Testing in the ED is performed under the ED CLIA certificate #[id number]. Result Comment: [email or web address] Performed By: #### L [id number] #### [facility] ([facility]) [address] [place] [address] Glucose [Mass/Vol] 156 mg/dL High 70-105 [facility] Comment on above: Order Comment: Waive d Testing in the ED is performed under the ED CLIA certificate #[id number]. Result Comment: [email or web address] Performed By: #### L [id number] #### [facility] ([facility]) [address] [place] [address] Glucose [Mass/Vol] 305 mg/dL High 70-105 [facility] Comment on above: Order Comment: Waive d Testing in the ED is performed under the ED CLIA certificate #[id number]. Result Comment: [email or web address] Performed By: #### L [id number] #### [facility] ([facility]) [address] [place] [address] 30on 08-06-2023 30 Problem: Pain - Adul [...] dysrhythmias or at baseline Outcome: Progressing Normal [facility] BASIC METABOLIC PANELon 2 Anion gap [Moles/Vol] 9 mmol/L Normal 04-05 [facility] Comment on above: Performed By: #### L [id number] #### [facility] ([facility]) [address] [place] [address] Calcium [Mass/Vol] 8.4 mg/dL Low 8.6-10.3 [facility] Comment on above: Performed By: #### L [id number] #### [facility] ([facility]) [address] [place] [address] Chloride [Moles/Vol] 100 mmol/L Normal 98-107 [facility] Comment on above: Performed By: #### L [id number] #### [facility] ([facility]) [address] [place] [address] CO2 [Moles/Vol] 30 mmol/L Normal 21-31 [facility] Comment on above: Performed By: #### L [id number] #### [facility] ([facility]) [address] [place] [address] Creatinine [Mass/Vol] 0.61 mg/dL Normal 0.60-1.20 [facility] Comment on above: Performed By: #### L [id number] #### [facility] ([facility]) [address] [place] [address] GLOMERULAR FILTRATION RATE ML/MIN/1.73 SQ M.PREDICTED 110.9 mL/min/1.73m*2 Normal >60.0 [facility] Comment on above: Result Comment: [facility]???s estimated glomerular filtration rate (eGFR) will [...] individuals. Performed By: #### L [id number] #### [facility] ([facility]) [address] [place] [address] Glucose [Mass/Vol] 180 mg/dL High 70-100 [facility] Comment on above: Performed By: #### L [id number] #### [facility] [address] [place] [address] Potassium [Moles/Vol] 4.1 mmol/L Normal 3.5-5.1 [facility] Comment on above: Performed By: #### L [id number] #### [facility] [address] [place] [address] Sodium [Moles/Vol] 135 mmol/L Low 136-145 [facility] Comment on above: Performed By: #### L [id number] #### [facility] [address] [place] [address] Urea nitrogen [Mass/Vol] 20 mg/dL Normal 7-25 [facility] Comment on above: Performed By: #### L [id number] #### [facility] ([facility]) [address] [place] [address] UREA NITROGEN/CREATININE (MASS RATIO) IN SER/PLAS 32.8 Normal [facility] Comment on above: Performed By: #### L [id number] #### [facility] ([facility]) [address] [place] [address] CBCon 08-06-2023 Erythrocyte distribution width (RBC) [Ratio] 12.9 % Normal 11.5-15.0 [facility] Comment on above: Performed By: #### L [id number] #### [facility] ([facility]) [address] [place] [address] ERYTHROCYTE MEAN CORPUSCULAR HEMOGLOBIN CONCENTRATION (G/DL) BY AUTOMATED 32.4 g/dL Normal 32.0-35.0 [facility] Comment on above: Performed By: #### L [id number] #### [facility] ([facility]) [address] [place] [address] Hematocrit (Bld) [Volume fraction] 48.5 % High 36.0-48.0 [facility] Comment on above: Performed By: #### L [id number] #### [facility]) [address] [place] [address] Hemoglobin (Bld) [Mass/Vol] 15.7 g/dL High 12.0-15.0 [facility] Comment on above: Performed By: #### L [id number] #### [facility] ([facility]) [address] [place] [address] MCH (RBC) [Entitic mass] 30.3 pg Normal 27.0-33.0 [facility] Comment on above: Performed By: #### L [id number] #### [facility] ([facility]) [address] [place] [address] MCV (RBC) [Entitic vol] 93.4 fL Normal 82.0-98.0 [facility] Comment on above: Performed By: #### L [id number] #### [facility] ([facility]) [address] [place] [address] PLATELETS (10*3/UL) IN BLOOD AUTOMATED COUNT 159 10*3/uL Normal 150-400 [facility] Comment on above: Performed By: #### L [id number] #### [facility] ([facility]) [address] [place] [address] RBC (Bld) [#/Vol] 5.19 10*6/uL High 3.80-5.[address] [facility] Comment on above: Performed By: #### L [id number] #### [facility] ([facility]) [address] [place] [address] WBC (Bld) [#/Vol] 8.36 10*3/uL Normal 4.00-10.[address] [facility] Comment on above: Performed By: #### L [id number] #### [facility] ([facility]) [address] [place] [address] MAGNESIUMon 08-06-2023 Magnesium [Mass/Vol] 1.8 mg/dL Low 1.9-2.7 [facility] Comment on above: Performed By: #### L [id number] #### [facility] ([facility]) [address] [place] [address] MRI CARDIAC MORPHOLOGY AND F UNCTION W [...] hypertrophy . . Electronically signed: Cade Farley. [facility] PHOSPHORUSon 11-20-2023 Magnesium [Mass/Vol] 3.2 mg/dL Normal 2.5-5.0 [facility] Comment on above: Performed By: #### L [id number] #### [facility] ([facility]) [address] [place] [address] POCT GLUCOSE METER UNSOLICIT ED RESULTSon 08-06-2023 Glucose [Mass/Vol] 240 mg/dL High 70-105 [facility] Comment on above: Order Comment: Waive d Testing in the ED is performed under the ED CLIA certificate #[id number]. Result Comment: [email or web address] Performed By: #### L [id number] ####[facility] ([facility])[address] [place] [address] Glucose [Mass/Vol] 240 mg/dL High 70-105 [facility] Comment on above: Order Comment: Waive d Testing in the ED is performed under the ED CLIA certificate #[id number]. Result Comment: [email or web address] Performed By: #### L [id number] #### [facility] ([facility]) [address] [place] [address] Glucose [Mass/Vol] 252 mg/dL High 70-105 [facility] Comment on above: Order Comment: Waive d Testing in the ED is performed under the ED CLIA certificate #[id number]. Result Comment: [email or web address] Performed By: #### L [id number] #### [facility] ([facility]) [address] [place] [address] 30on 08-05-2023 30 The patient is Moder [...] Goal: Maintains hematologic stability Outcome: Progressing Normal [facility] 30 Problem: Pain - Adul t [...] goals for the shift include VSS Normal [facility] BASIC METABOLIC PANELon 11- Anion gap [Moles/Vol] 7 mmol/L Normal 7-20 [facility] Comment on above: Performed By: #### L [id number] #### [facility] ([facility]) [address] [place] [address] Calcium [Mass/Vol] 8.4 mg/dL Low 8.6-10.3 [facility] Comment on above: Performed By: #### L [id number] #### [facility] ([facility]) [address] [place] [address] Chloride [Moles/Vol] 99 mmol/L Normal 98-107 [facility] Comment on above: Performed By: #### L [id number] #### [facility] ([facility]) [address] [place] [address] CO2 [Moles/Vol] 33 mmol/L High 21-31 [facility] Comment on above: Performed By: #### L [id number] #### [facility] [address] [place] [address] Creatinine [Mass/Vol] 0.75 mg/dL Normal 0.60-1.20 [facility] Comment on above: Performed By: #### L [id number] #### [facility] ([facility]) [address] [place] [address] GLOMERULAR FILTRATION RATE ML/MIN/1.73 SQ M.PREDICTED 98.8 mL/min/1.73m*2 Normal >60.0 [facility] Comment on above: Result Comment: [facility]???s estimated glomerular filtration rate (eGFR) will [...] individuals. Performed By: #### L [id number] #### [facility] ([facility]) [address] [place] [address] Glucose [Mass/Vol] 206 mg/dL High 70-100 [facility] Comment on above: Performed By: #### L [id number] #### [facility] ([facility]) [address] [place] [address] Potassium [Moles/Vol] 3.7 mmol/L Normal 3.5-5.1 [facility] Comment on above: Performed By: #### L [id number] #### [facility] ([facility]) [address] [place] [address] Sodium [Moles/Vol] 135 mmol/L Low 136-145 [facility] Comment on above: Performed By: #### L [id number] #### [facility] ([facility]) [address] [place] [address] Urea nitrogen [Mass/Vol] 26 mg/dL High 7-25 [facility] Comment on above: Performed By: #### L [id number] #### [facility] ([facility]) [address] [place] [address] UREA NITROGEN/CREATININE (MASS RATIO) IN SER/PLAS 34.7 Normal [facility] Comment on above: Performed By: #### L [id number] #### [facility] ([facility]) [address] [place] [address] CBCon 08-05-2023 Erythrocyte distribution width (RBC) [Ratio] 13.0 % Normal 11.5-15.0 [facility] Comment on above: Performed By: #### L [id number] ####[facility] ([facility])[address] [place] [address] ERYTHROCYTE MEAN CORPUSCULAR HEMOGLOBIN CONCENTRATION (G/DL) BY AUTOMATED 32.7 g/dL Normal 32.0-35.0 [facility] Comment on above: Performed By: #### L [id number] ####[facility] ([facility])[address] [place] [address] Hematocrit (Bld) [Volume fraction] 49.5 % High 36.0-48.0 [facility] Comment on above: Performed By: #### L [id number] ####[facility] ([facility])[address] [place] [address] Hemoglobin (Bld) [Mass/Vol] 16.2 g/dL High 12.0-15.0 [facility] Comment on above: Performed By: #### L [id number] ####[facility] ([facility])[address] [place] [address] MCH (RBC) [Entitic mass] 30.6 pg Normal 27.0-33.0 [facility] Comment on above: Performed By: #### L [id number] ####[facility] ([facility])[address] [place] [address] MCV (RBC) [Entitic vol] 93.4 fL Normal 82.0-98.0 [facility] Comment on above: Performed By: #### L [id number] ####[facility] ([facility])[address] [place] [address] PLATELETS (10*3/UL) IN BLOOD AUTOMATED COUNT 190 10*3/uL Normal 150-400 [facility] Comment on above: Performed By: #### L [id number] ####[facility] ([facility])[address] [place] [address] RBC (Bld) [#/Vol] 5.30 10*6/uL High 3.80-5.[address] [facility] Comment on above: Performed By: #### L [id number] ####[facility] ([facility])[address] [place] [address] WBC (Bld) [#/Vol] 9.57 10*3/uL Normal 4.00-10.[address] [facility] Comment on above: Performed By: #### L [id number] ####[facility] ([facility])[address] [place] [address] MAGNESIUMon 08-05-2023 Magnesium [Mass/Vol] 1.9 mg/dL Normal 1.9-2.7 [facility] Comment on above: Performed By: #### L [id number] ####[facility] ([facility])[address] [address] PHOSPHORUSon 08-05-2023 Magnesium [Mass/Vol] 3.1 mg/dL Normal 2.5-5.0 [facility] Comment on above: Performed By: #### L [id number] #### [facility] ([facility]) [address] [place] [address] POCT GLUCOSE METER UNSOLICIT ED RESULTSon 08-05-2023 Glucose [Mass/Vol] 272 mg/dL High 70-105 [facility] Comment on above: Order Comment: Waive d Testing in the ED is performed under the ED CLIA certificate #[id number]. Result Comment: nfre [email or web address] Performed By: #### L [id number] #### [facility] ([facility]) [address] [place] [address] Glucose [Mass/Vol] 203 mg/dL High 70-105 [facility] Comment on above: Order Comment: Waive d Testing in the ED is performed under the ED CLIA certificate #[id number]. Result Comment: ana ry Performed By: #### L [id number] ####[facility] ([facility])[address] [place] [address] Glucose [Mass/Vol] 227 mg/dL High 70-105 [facility] Comment on above: Order Comment: Waive d Testing in the ED is performed under the ED CLIA certificate #[id number]. Result Comment: ana ry Performed By: #### L [id number] #### [facility] ([facility]) [address] [place] [address] Glucose [Mass/Vol] 200 mg/dL High 70-105 [facility] Comment on above: Order Comment: Waive d Testing in the ED is performed under the ED CLIA certificate #[id number]. Result Comment: ana yanes Performed By: #### L [id number] #### [facility] ([facility]) [address] [place] [address] 30on 08-04-2023 30 The patient is Moder [...] Goal: Maintains hematologic stability Outcome: Progressing Normal [facility] 30 The patient is Moder ately [...] Goal: Maintains hematologic stability Outcome: Progressing Normal [facility] BASIC METABOLIC PANELon 11- Anion gap [Moles/Vol] 7 mmol/L Normal 7-20 [facility] Comment on above: Performed By: #### L [id number] ####[facility] ([facility])[address] [place] [address] Calcium [Mass/Vol] 8.4 mg/dL Low 8.6-10.3 [facility] Comment on above: Performed By: #### L [id number] ####[facility] ([facility])[address] [place] [address] Chloride [Moles/Vol] 99 mmol/L Normal 98-107 [facility] Comment on above: Performed By: #### L [id number] ####[facility] ([facility])[address] [place] [address] CO2 [Moles/Vol] 33 mmol/L High 21-31 [facility] Comment on above: Performed By: #### L [id number] ####[facility] ([facility])[address] [place] [address] Creatinine [Mass/Vol] 0.82 mg/dL Normal 0.60-1.20 [facility] Comment on above: Performed By: #### L [id number] ####[facility] ([facility])[address] [place] [address] GLOMERULAR FILTRATION RATE ML/MIN/1.73 SQ M.PREDICTED 88.7 mL/min/1.73m*2 Normal >60.0 [facility] Comment on above: Result Comment: [facility]???s estimated glomerular filtration rate (eGFR) will [...] of individuals. Performed By: #### L [id number] ####[facility] ([facility])[address] [place] [address] Glucose [Mass/Vol] 207 mg/dL High 70-100 [facility] Comment on above: Performed By: #### L [id number] ####[facility] ([facility])[address] [place] [address] Potassium [Moles/Vol] 3.8 mmol/L Normal 3.5-5.1 [facility] Comment on above: Performed By: #### L [id number] ####[facility] ([facility])[address] [place] [address] Sodium [Moles/Vol] 135 mmol/L Low 136-145 [facility] Comment on above: Performed By: #### L [id number] ####[facility] [place] [address] Urea nitrogen [Mass/Vol] 28 mg/dL High 7-25 [facility] Comment on above: Performed By: #### L [id number] ####[facility] ([facility])[address] [place] [address] UREA NITROGEN/CREATININE (MASS RATIO) IN SER/PLAS 34.1 Normal [facility] Comment on above: Performed By: #### L [id number] ####[facility] ([facility])[address] [place] [address] CBCon 08-04-2023 Erythrocyte distribution width (RBC) [Ratio] 13.0 % Normal 11.5-15.0 [facility] Comment on above: Performed By: #### L [id number] ####[facility] ([facility]ER)[address] [place] [address] ERYTHROCYTE MEAN CORPUSCULAR HEMOGLOBIN CONCENTRATION (G/DL) BY AUTOMATED 32.5 g/dL Normal 32.0-35.0 [facility] Comment on above: Performed By: #### L [id number] ####[facility] ([facility])[address] [place] [address] Hematocrit (Bld) [Volume fraction] 49.9 % High 36.0-48.0 [facility] Comment on above: Performed By: #### L [id number] ####[facility] ([facility])[address] [place] [address] Hemoglobin (Bld) [Mass/Vol] 16.2 g/dL High 12.0-15.0 [facility] Comment on above: Performed By: #### L [id number] ####[facility] ([facility])[address] [place] [address] MCH (RBC) [Entitic mass] 30.5 pg Normal 27.0-33.0 [facility] Comment on above: Performed By: #### L [id number] ####[facility] ([facility])[address] [place] [address] MCV (RBC) [Entitic vol] 93.8 fL Normal 82.0-98.0 [facility] Comment on above: Performed By: #### L [id number] ####[facility] ([facility])[address] [place] [address] PLATELETS (10*3/UL) IN BLOOD AUTOMATED COUNT 197 10*3/uL Normal 150-400 [facility] Comment on above: Performed By: #### L [id number] ####[facility] ([facility])[address] [place] [address] RBC (Bld) [#/Vol] 5.32 10*6/uL High 3.80-5.[address] [facility] Comment on above: Performed By: #### L [id number] ####[facility] ([facility])[address] [place] [address] WBC (Bld) [#/Vol] 10.19 10*3/uL Normal 4.00-10.60 [facility] Comment on above: Performed By: #### L [id number] ####[facility] ([facility])[address] [place] [address] CONSULTon 08-04-2023 CONSULT Inpatient consult to Cardiothoracic Surgery Consult performed by: Gian Cardona NP Consult ordered by: Lissette Delgado MD Reason for consult: ASD History Of Present Illness Daniel Lynn is a 47 y.o. female with PMH of Asthma and Obesity who was initially evaluated in [place] on 07/25 with with 4 days of [...] the patient and they recommended transfer to [facility] for right heart catherization. She arrived to [facility] 08/01 where she was admitted [...] of Asthma, COPD (chronic obstructive pulmonary disease) ([facility]), Diabetes mellitus ([facility]), Hypertension, MTHFR gene mutation, and Obesity. Surgical [...] Mental Status (more content not included)... Normal [facility] MAGNESIUMon 08-04-2023 Magnesium [Mass/Vol] 1.9 mg/dL Normal 1.9-2.7 [facility] Comment on above: Performed By: #### L [id number] #### [facility] ([facility]) [address] [place] [address] PHOSPHORUSon 08-04-2023 Magnesium [Mass/Vol] 2.8 mg/dL Normal 2.5-5.0 [facility] Comment on above: Performed By: #### L [id number] #### [facility] ([employer]) [address] [place] [address] POCT GLUCOSE METER UNSOLICIT ED RESULTSon 08-04-2023 Glucose [Mass/Vol] 310 mg/dL High 70-105 [facility] Comment on above: Order Comment: Waive d Testing in the ED is performed under the ED CLIA certificate #[id number]. Result Comment: [email or web address] Performed By: #### L [id number] #### [facility] ([place]) [address] [place] [address] Glucose [Mass/Vol] 248 mg/dL High 70-105 [facility] Comment on above: Order Comment: Waive d Testing in the ED is performed under the ED CLIA certificate #[id number]. Result Comment: [email or web address] Performed By: #### L [id number] #### [facility] ([place]) [address] [place] [address] Glucose [Mass/Vol] 212 mg/dL High 70-105 [facility] Comment on above: Order Comment: Waive d Testing in the ED is performed under the ED CLIA certificate #[id number]. Result Comment: [email or web address] Performed By: #### L [id number] #### [facility] ([facility]) [address] [place] [address] Glucose [Mass/Vol] 185 mg/dL High 70-105 [facility] Comment on above: Order Comment: Waive d Testing in the ED is performed under the ED CLIA certificate #[id number]. Result Comment: [email or web address] Performed By: #### L [id number] ####[facility] ([facility])[address] [place] [address] BASIC METABOLIC PANELon 11- Anion gap [Moles/Vol] 10 mmol/L Normal 7-20 [facility] Comment on above: Performed By: #### L [id number] #### [facility] ([facility]) [address] [place] [address] Calcium [Mass/Vol] 8.7 mg/dL Normal 8.6-10.3 [facility] Comment on above: Performed By: #### L [id number] #### [facility] ([facility]) [address] [place] [address] Chloride [Moles/Vol] 95 mmol/L Low 98-107 [facility] Comment on above: Performed By: #### L [id number] #### [facility] [address] [place] [address] CO2 [Moles/Vol] 32 mmol/L High 21-31 [facility] Comment on above: Performed By: #### L [id number] #### [facility] [address] [place] [address] Creatinine [Mass/Vol] 0.67 mg/dL Normal 0.60-1.20 [facility] Comment on above: Performed By: #### L [id number] #### [facility] ([facility]) [address] [place] [address] GLOMERULAR FILTRATION RATE ML/MIN/1.73 SQ M.PREDICTED 108.4 mL/min/1.73m*2 Normal >60.0 [facility] Comment on above: Result Comment: [facility]???s estimated glomerular filtration rate (eGFR) will [...] group of individuals. Performed By: #### L [id number] #### [facility] ([facility]) [address] [place] [address] Glucose [Mass/Vol] 277 mg/dL High 70-100 [facility] Comment on above: Performed By: #### L [id number] #### [facility] ([facility]) [address] [place] [address] Potassium [Moles/Vol] 3.6 mmol/L Normal 3.5-5.1 [facility] Comment on above: Performed By: #### L [id number] #### [facility] ([facility]) [address] [place] [address] Sodium [Moles/Vol] 133 mmol/L Low 136-145 [facility] Comment on above: Performed By: #### L [id number] #### [facility] ([facility]) [address] [place] [address] Urea nitrogen [Mass/Vol] 32 mg/dL High 7-25 [facility] Comment on above: Performed By: #### L [id number] #### [facility] ([facility]) [address] [place] [address] UREA NITROGEN/CREATININE (MASS RATIO) IN SER/PLAS 47.8 Normal [facility] Comment on above: Performed By: #### L [id number] #### [facility] ([facility]) [address] [place] [address] CBCon 08-03-2023 Erythrocyte distribution width (RBC) [Ratio] 13.0 % Normal 11.5-15.0 [facility] Comment on above: Performed By: #### L [id number] #### [facility] ([facility]) [address] [place] [address] ERYTHROCYTE MEAN CORPUSCULAR HEMOGLOBIN CONCENTRATION (G/DL) BY AUTOMATED 32.7 g/dL Normal 32.0-35.0 [facility] Comment on above: Performed By: #### L [id number] #### [facility] ([facility]) [address] [place] [address] Hematocrit (Bld) [Volume fraction] 54.8 % High 36.0-48.0 [facility] Comment on above: Performed By: #### L [id number] #### [facility] ([facility]) [address] [place] [address] Hemoglobin (Bld) [Mass/Vol] 17.9 g/dL High 12.0-15.0 [facility] Comment on above: Performed By: #### L [id number] #### [facility] ([facility]) [address] [place] [address] MCH (RBC) [Entitic mass] 30.5 pg Normal 27.0-33.0 [facility] Comment on above: Performed By: #### L [id number] #### [facility] ([facility]) [address] [place] [address] MCV (RBC) [Entitic vol] 93.5 fL Normal 82.0-98.0 [facility] Comment on above: Performed By: #### L [id number] #### [facility] ([facility]) [address] [place] [address] PLATELETS (10*3/UL) IN BLOOD AUTOMATED COUNT 208 10*3/uL Normal 150-400 [facility] Comment on above: Performed By: #### L [id number] #### [facility] ([facility]) [address] [place] [address] RBC (Bld) [#/Vol] 5.86 10*6/uL High 3.80-5.[address] [facility] Comment on above: Performed By: #### L [id number] #### [facility] ([facility]) [address] [place] [address] WBC (Bld) [#/Vol] 12.73 10*3/uL High 4.00-10.60 [facility] Comment on above: Performed By: #### L [id number] #### [facility] ([facility]) [address] [place] [address] MAGNESIUMon 08-03-2023 Magnesium [Mass/Vol] 1.9 mg/dL Normal 1.9-2.7 [facility] Comment on above: Performed By: #### L [id number] #### [facility] ([facility]) [address] [place] [address] PHOSPHORUSon 08-03-2023 Magnesium [Mass/Vol] 3.3 mg/dL Normal 2.5-5.0 [facility] Comment on above: Performed By: #### L [id number] #### [facility] ([facility]) [address] [place] [address] POCT GLUCOSE METER UNSOLICIT ED RESULTSon 08-03-2023 Glucose [Mass/Vol] 286 mg/dL High 70-105 [facility] Comment on above: Order Comment: Waive d Testing in the ED is performed under the ED CLIA certificate #[id number]. Result Comment: nfre [email or web address] Performed By: #### L [id number] #### [facility] ([facility]) [address] [place] [address] Glucose [Mass/Vol] 214 mg/dL High 70-105 [facility] Comment on above: Order Comment: Waive d Testing in the ED is performed under the ED CLIA certificate #[id number]. Result Comment: lhag iga Performed By: #### L [id number] #### [facility] ([facility]) [address] [place] [address] Glucose [Mass/Vol] 239 mg/dL High 70-105 [facility] Comment on above: Order Comment: Waive d Testing in the ED is performed under the ED CLIA certificate #[id number]. Result Comment: lhag iga Performed By: #### L [id number] #### [facility] ([facility]) [address] [place] [address] Glucose [Mass/Vol] 234 mg/dL High 70-105 [facility] Comment on above: Order Comment: Waive d Testing in the ED is performed under the ED CLIA certificate #[id number]. Result Comment: lhag iga Performed By: #### L [id number] #### [facility] ([facility]) [address] [place] [address] TSH3 REFLEX TO FT4on 023 THYROTROPIN (MIU/L) IN SER/PLAS BY DETECTION LIMIT <= 0.05 MIU/L 0.56 mIU/L Normal 0.34-5.60 [facility] Comment on above: Performed By: #### L [id number] #### [facility] ([facility]) [address] [place] [address] ANAon 08-02-2023 PHANI TITER <1:40 Normal <=1:40 [facility] Comment on above: Result Comment: Test performed using SERGE IFA PHANI Hep-2 Test, a pre-standardized assay designed for the qualitative and semi-quantitative detection of antinuclear antibodies. Performed By: #### L [id number] #### [facility] ([facility]) [address] [place] [address] ANTI-CENTROMERE ANTIBODYon 10-02-2022 ANTI-CENTROMERE ANTIBODY Negative Normal Negative [facility] Comment on above: Performed By: #### L [id number] #### [facility] ([facility]) [address] [place] [address] ANTI-DNASE B ANTIBODYon 07-18 DNASE B ANTIBODY <86 Normal <=259 [facility] Comment on above: Result Comment: REFE RENCE [...] of a recent Streptococcus infection. Performed By: [facility] [address] [place] [address] Hand Cloth Cutter: Saturnino Rai MD, PhD CLIA Number: [id number] Performed By: #### L [id number] #### [facility] ([facility]) [address] [place] [address] ANTI-RITU 1 ANTIBODY, IGGon ANTI RITU-1 IGG 1 AU/mL Normal 0-40 [facility] Comment on above: Result Comment: INTE RPRETIVE INFORMATION: Ritu-1 Antibody, IgG 29 AU/mL or less.........Negative 30-40 AU/mL..............Equivocal 41 AU/mL or greater......Positive Presence of Ritu-1 (antihistidyl transfer RNA [t-RNA] synthetase) antibody is associated with polymyositis and may also be seen in patients with dermatomyositis. Ritu-1 antibody is associated with pulmonary involvement (interstitial lung disease), Raynaud phenomenon, arthritis, and nuclear powerplant mechanic helper's hands (implicated in antisynthetase syndrome). Performed By: [facility] [address] [place] [address] Hand Cloth Cutter: Saturnino Rai MD, PhD CLIA Number: [id number] Performed By: #### L [id number] #### [facility] ([facility]) [address] [place] [address] ARTERIAL BLOOD GAS WITH IONI ZED CALCIUMon 08-02-2023 Base excess Calc (Bld) [Moles/Vol] 13.8 mmol/L High -2.0-3.0 [facility] Comment on above: Order Comment: 04/26 Performed By: #### L [id number] #### [facility] ([facility]) [address] [place] [address] CALCIUM IONIZED (MMOL/L) IN BLOOD 1.08 mmol/L Low 1.15-1.33 [facility] Comment on above: Order Comment: 04/26 Performed By: #### L [id number] #### [facility] ([facility]) [address] [place] [address] CO2 (Bld) [Partial pressure] 60 mm[Hg] Critically high 35-48 [facility] Comment on above: Order Comment: 04/26 Performed By: #### L [id number] #### [facility] ([facility]) [address] [place] [address] FIO2 90 % Normal [facility] Comment on above: Order Comment: 04/26 Performed By: #### L [id number] #### [facility] ([facility]) [address] [place] [address] HCO3 (Bld) [Moles/Vol] 40.8 mmol/L High 21.0-28.0 [facility] Comment on above: Order Comment: 04/26 Performed By: #### L [id number] #### [facility] ([facility]) [address] [place] [address] Oxygen (Bld) [Partial pressure] 89 mm[Hg] Normal 83-100 [facility] Comment on above: Order Comment: 04/26 Performed By: #### L [id number] #### [facility] ([facility]) [address] [place] [address] OXYGEN SATURATION (%) IN ARTERIAL BLOOD 97.8 % Normal 94.0-98.0 [facility] Comment on above: Order Comment: 04/26 Performed By: #### L [id number] #### [facility] ([facility]) [address] [place] [address] pH (Bld) 7.44 [pH] Normal 7.35-7.45 [facility] Comment on above: Order Comment: 04/26 Performed By: #### L [id number] #### [facility] ([facility]) [address] [place] [address] SOURCE OF OXYGEN Bi-PAP Normal [facility] Comment on above: Order Comment: 04/26 Performed By: #### L [id number] #### [facility] ([facility]) [address] [place] [address] B-TYPE NATRIURETIC PEPTIDEon 08-02-2023 Natriuretic peptide B (Bld) [Mass/Vol] 37 pg/mL Normal 0-100 [facility] Comment on above: Performed By: #### L [id number] #### [facility] ([facility]) [address] [place] [address] BASIC METABOLIC PANELon 07-18 Anion gap [Moles/Vol] 10 mmol/L Normal 7-20 [facility] Comment on above: Performed By: #### L [id number] #### [facility] ([facility]) [address] [place] [address] Calcium [Mass/Vol] 8.8 mg/dL Normal 8.6-10.3 [facility] Comment on above: Performed By: #### L [id number] #### [facility] ([facility]) [address] [place] [address] Chloride [Moles/Vol] 91 mmol/L Low 98-107 [facility] Comment on above: Performed By: #### L [id number] #### [facility] ([facility]) [address] [place] [address] CO2 [Moles/Vol] 39 mmol/L High 21-31 [facility] Comment on above: Performed By: #### L [id number] #### [facility] ([facility]) [address] [place] [address] Creatinine [Mass/Vol] 0.70 mg/dL Normal 0.60-1.20 [facility] Comment on above: Performed By: #### L [id number] #### [facility] ([facility]) [address] [place] [address] GLOMERULAR FILTRATION RATE ML/MIN/1.73 SQ M.PREDICTED 107.3 mL/min/1.73m*2 Normal >60.0 [facility] Comment on above: Result Comment: [facility]???s estimated glomerular filtration rate (eGFR) will [...] individuals. Performed By: #### L [id number] #### [facility] ([facility]) [address] [place] [address] Glucose [Mass/Vol] 231 mg/dL High 70-100 [facility] Comment on above: Performed By: #### L [id number] #### [facility] ([facility]) [address] [place] [address] Potassium [Moles/Vol] 3.7 mmol/L Normal 3.5-5.1 [facility] Comment on above: Performed By: #### L [id number] #### [facility] ([facility]) [address] [place] [address] Sodium [Moles/Vol] 136 mmol/L Normal 136-145 [facility] Comment on above: Performed By: #### L [id number] #### [facility] ([facility]) [address] [place] [address] Urea nitrogen [Mass/Vol] 29 mg/dL High 7-25 [facility] Comment on above: Performed By: #### L [id number] #### [facility] ([facility]) [address] [place] [address] UREA NITROGEN/CREATININE (MASS RATIO) IN SER/PLAS 41.4 Normal [facility] Comment on above: Performed By: #### L [id number] #### [facility] ([facility]) [address] [place] [address] CBCon 08-02-2023 Erythrocyte distribution width (RBC) [Ratio] 13.2 % Normal 11.5-15.0 [facility] Comment on above: Performed By: #### L [id number] #### [facility] ([facility]) [address] [place] [address] ERYTHROCYTE MEAN CORPUSCULAR HEMOGLOBIN CONCENTRATION (G/DL) BY AUTOMATED 32.4 g/dL Normal 32.0-35.0 [facility] Comment on above: Performed By: #### L [id number] #### [facility] ([facility]) [address] [place] [address] Hematocrit (Bld) [Volume fraction] 56.2 % High 36.0-48.0 [facility] Comment on above: Performed By: #### L [id number] #### [facility] ([facility]) [address] [place] [address] Hemoglobin (Bld) [Mass/Vol] 18.2 g/dL High 12.0-15.0 [facility] Comment on above: Performed By: #### L [id number] #### [facility] ([facility]) [address] [place] [address] MCH (RBC) [Entitic mass] 30.6 pg Normal 27.0-33.0 [facility] Comment on above: Performed By: #### L [id number] #### [facility] ([facility]) [address] [place] [address] MCV (RBC) [Entitic vol] 94.5 fL Normal 82.0-98.0 [facility] Comment on above: Performed By: #### L [id number] #### [facility] ([facility]) [address] [place] [address] PLATELETS (10*3/UL) IN BLOOD AUTOMATED COUNT 237 10*3/uL Normal 150-400 [facility] Comment on above: Performed By: #### L [id number] #### [facility] ([facility]) [address] [place] [address] RBC (Bld) [#/Vol] 5.95 10*6/uL High 3.80-5.[address] [facility] Comment on above: Performed By: #### L [id number] #### [facility] ([facility]) [address] [place] [address] WBC (Bld) [#/Vol] 12.17 10*3/uL High 4.00-10.60 [facility] Comment on above: Performed By: #### L [id number] #### [facility] ([facility]) [address] [place] [address] CT CHEST HIGH RESOLUTION WO CONTRASTon 08-02-2023 [...] reasonably achievable. Electronically signed: Lonnie Tolentino. Normal [facility] CTA HEART STRUCTURE MORPHOLO GY W [...] the actual shunt. No pericardial effusion Large bdreh-zu-hker images obtained but there is no evidence [...] with atelectasis Electronically signed: Cade Farley. Normal [facility] HPon 08-02-2023 HP H&P reviewed. The daniel richards was examined and there are no changes to the H&P. Normal [facility] LEGIONELLA ANTIGEN, URINEon 08-02-2023 LEGIONELLA AG, UR Negative Normal [facility] Comment on above: Result Comment: L. p neumophila serogroup 1 antigen not detected. A negative result does not exclude infection with Leginella pnemophila serogroup 1 nor does it rule out other microbial-caused respiratory infections of disease caused by other serogroups of Legionella pneumophila. Test Performed by [facility] [address] [place], [place] [id number] - Released 08/02/2023 19:58 Performed By: #### L [id number] #### [facility] (AKER) [address] [place] [address] MAGNESIUMon 08-02-2023 Magnesium [Mass/Vol] 2.0 mg/dL Normal 1.9-2.7 [facility] Comment on above: Performed By: #### L [id number] #### [facility] ([facility]ER) [address] [place] [address] MRSA/MSSA DNA NASALon 2022 MRSA DNA Negative Normal Negative [facility] Comment on above: Order Comment: Testi [...] colonization. Performed By: #### L [id number] #### [facility] ([facility]) [address] [place] [address] MSSA DNA Negative Normal Negative [facility] Comment on above: Order Comment: Nemo [...] colonization. Performed By: #### L [id number] #### [facility] ([facility]) [address] [place] [address] NM LUNG PERFUSION PARTICULAT Cruzito 08-02-2023 NM [...] pulmonary thromboembolism. Electronically signed: Lonnie Tolentino. Normal [facility] PHOSPHORUSon 08-02-2023 Magnesium [Mass/Vol] 4.5 mg/dL Normal 2.5-5.0 [facility] Comment on above: Performed By: #### L [id number] #### [facility] ([facility]) [address] [place] [address] POCT GLUCOSE METER UNSOLICIT ED RESULTSon 08-02-2023 Glucose [Mass/Vol] 337 mg/dL High 70-105 [facility] Comment on above: Order Comment: Waive d Testing in the ED is performed under the ED CLIA certificate #[id number]. Result Comment: ebol tz Performed By: #### L [id number] #### [facility] ([facility]) [address] [place] [address] Glucose [Mass/Vol] 164 mg/dL High 70-105 [facility] Comment on above: Order Comment: Waive d Testing in the ED is performed under the ED CLIA certificate #[id number]. Result Comment: lhag iga Performed By: #### L [id number] #### [facility] ([facility]) [address] [place] [address] Glucose [Mass/Vol] 218 mg/dL High 70-105 [facility] Comment on above: Order Comment: Waive d Testing in the ED is performed under the ED CLIA certificate #[id number]. Result Comment: ebol tz Performed By: #### L [id number] #### [facility] ([employer]) [address] [place] [address] PROCALCITONIN TESTon 023 PROCALCITONIN IN BLOOD 0.04 ng/mL Normal 0.00-0.10 [facility] Comment on above: Result Comment: Susp [...] and initial PCT<0.5ng/mL Performed By: #### L [id number] ####[facility] ([facility])[address] [place] [address] RHEUMATOID FACTORon 08-02-20 23 Rheumatoid factor Qn [IU]/mL Normal 0-20 [facility] Comment on above: Performed By: #### L [id number] #### [facility] ([facility]) [address] [place] [address] RNA POLYMERASE III ANTIBODY IGGon 08-02-2023 RNA POLYMERASE III ANTIBODY, IGG 11 Units Normal 0-19 [facility] Comment on above: Result Comment: INTE [...] antibodies associated with SSc, including centromere, Scl-70, U3-STORAGE BATTERY CHARGER, PM/Scl, or Th/To. Performed By: [facility] [address] [place] [address] Hand Cloth Cutter: Saturnino Rai MD, PhD CLIA Number: [id number] Performed By: #### L [id number] ####[facility] ([facility])[address] [place] [address] SJOGRENS SYNDROME ANTIBODIES A AND Bon 08-02-2023 IVAN TO SSA (RO) ANTIBODY Negative Normal Negative [facility] Comment on above: Performed By: #### L [id number] #### [facility] ([facility]) [address] [place] [address] IVAN TO SSB ([place]) ANTIBODY Negative Normal Negative [facility] Comment on above: Performed By: #### L [id number] #### [facility] ([facility]) [address] [place] [address] STREP PNEUMONIAE ANTIGEN, UR INEon 08-02-2023 STREPTOCOCCUS PNEUMONIAE AG PRESENCE IN URINE Negative Normal Negative [facility] Comment on above: Performed By: #### L [id number] #### [facility] ([facility]) [address] [place] [address] TROPONIN Ion 08-02-2023 Troponin I.cardiac [Mass/Vol] 0.03 ng/mL Normal 0.00-0.04 [facility] Comment on above: Performed By: #### L [id number] ####[facility] ([facility])[address] [place] [address] 30on 08-01-2023 30 The patient is Moder [...] ensuring proper positioning, support, and education. Normal [facility] APTTon 08-01-2023 ACTIVATED PARTIAL THROMBOPLASTIN TIME IN PPP BY COAGULATION ASSAY 24.1 Seconds Low 25.0-35.0 [facility] Comment on above: Result Comment: Clin ical significance of the APTT is questionable in the presence of heparin. Performed By: #### L [id number] #### [facility] ([facility]) [address] [place] [address] ARTERIAL BLOOD GAS WITH CO-O XIMETRYon 08-01-2023 Base excess Calc (Bld) [Moles/Vol] 20.9 mmol/L High -2.0-3.0 [facility] Comment on above: Order Comment: bipap Performed By: #### L [id number] #### [facility] ([facility]AKER) [address] [place] [address] CARBOXYHEMOGLOBIN/H EMOGLOBIN TOTAL % IN BLOOD 1.5 % Normal 0.0-3.0 [facility] Comment on above: Order Comment: bipap Performed By: #### L [id number] #### [facility] ([facility]) [address] [place] [address] CO2 (Bld) [Partial pressure] 58 mm[Hg] Critically high 35-48 [facility] Comment on above: Order Comment: bipap Performed By: #### L [id number] #### [facility] ([facility]) [address] [place] [address] DEOXYGENATED HEMOGLOBIN IN BLOOD 5.4 % High 1-5 [facility] Comment on above: Order Comment: bipap Performed By: #### L [id number] #### [facility] ([facility]) [address] [place] [address] FIO2 40 % Normal [facility] Comment on above: Order Comment: bipap Performed By: #### L [id number] #### [facility] ([facility]) [address] [place] [address] HCO3 (Bld) [Moles/Vol] 48.5 mmol/L High 21.0-28.0 [facility] Comment on above: Order Comment: bipap Performed By: #### L [id number] #### [facility] [address] [place] [address] Hemoglobin (Bld) [Mass/Vol] 18.3 g/dL Critically high 11.7-17.4 [facility] Comment on above: Order Comment: bipap Performed By: #### L [id number] #### [facility] (BEAKER) [address] [place] [address] METHEMOGLOBIN/100 IN BLOOD 0.8 % Normal 0.0-1.5 [facility] Comment on above: Order Comment: bipap Performed By: #### L [id number] #### [facility] (BEAKER) [address] [place] [address] Oxygen (Bld) [Partial pressure] 66 mm[Hg] Low 83-100 [facility] Comment on above: Order Comment: bipap Performed By: #### L [id number] #### [facility] (BEAKER) [address] [place] [address] OXYGEN SATURATION (%) IN ARTERIAL BLOOD 94.5 % Normal 94.0-98.0 [facility] Comment on above: Order Comment: bipap Performed By: #### L [id number] #### [facility] ([facility] [address] [place] [address] OXYGENATED HEMOGLOBIN IN BLOOD 92.3 % Normal 90.0-95.0 [facility] Comment on above: Order Comment: bipap Performed By: #### L [id number] #### [facility] ([facility]) [address] [place] [address] pH (Bld) 7.53 [pH] High 7.35-7.45 [facility] Comment on above: Order Comment: bipap Performed By: #### L [id number] #### [facility] [address] [place] [address] RESPIRATORY RATE 14 Normal [facility] Comment on above: Order Comment: bipap Performed By: #### L [id number] #### [facility] (BEAKER) [address] [place] [address] SOURCE OF OXYGEN Bi-PAP Normal [facility] Comment on above: Order Comment: bipap Performed By: #### L [id number] #### [facility] (BEAKER) [address] [place] [address] B-TYPE NATRIURETIC PEPTIDEon 08-01-2023 Natriuretic peptide B (Bld) [Mass/Vol] 145 pg/mL High 0-100 [facility] Comment on above: Performed By: #### L [id number] #### [facility] (BEAKER) [address] [place] [address] BLOOD CULTUREon 08-01-2023 Bacteria identified Cx Nom (Bld) No growth at 5 days Normal [facility] Comment on above: Performed By: #### L [id number] #### [facility] ([facility]) [address] [place] [address] CBC WITH AUTO DIFFERENTIALon 08-01-2023 Basophils (Bld) [#/Vol] 0.02 10*3/uL Normal 0.00-0.20 [facility] Comment on above: Performed By: #### L [id number] #### [facility] ([facility]) [address] [place] [address] Basophils/100 WBC (Bld) 0.2 % Normal 0.0-1.0 [facility] Comment on above: Performed By: #### L [id number] #### [facility] ([facility]) [address] [place] [address] Eosinophils (Bld) [#/Vol] 0.01 10*3/uL Normal 0.00-0.50 [facility] Comment on above: Performed By: #### L [id number] #### [facility] ([facility]) [address] [place] [address] Eosinophils/100 WBC (Bld) 0.1 % Normal 0.0-6.0 [facility] Comment on above: Performed By: #### L [id number] #### [facility] ([facility]) [address] [place] [address] Erythrocyte distribution width (RBC) [Ratio] 13.2 % Normal 11.5-15.0 [facility] Comment on above: Performed By: #### L [id number] #### [facility] ([facility]) [address] [place] [address] ERYTHROCYTE MEAN CORPUSCULAR HEMOGLOBIN CONCENTRATION (G/DL) BY AUTOMATED 33.1 g/dL Normal 32.0-35.0 [facility] Comment on above: Performed By: #### L [id number] #### [facility] ([facility]) [address] [place] [address] Hematocrit (Bld) [Volume fraction] 54.1 % High 36.0-48.0 [facility] Comment on above: Performed By: #### L [id number] #### [facility]) [address] [place] [address] Hemoglobin (Bld) [Mass/Vol] 17.9 g/dL High 12.0-15.0 [facility] Comment on above: Performed By: #### L [id number] #### [facility] ([facility]) [address] [place] [address] Immature granulocytes (Bld) [#/Vol] 0.10 10*3/uL Normal 0.00-0.20 [facility] Comment on above: Performed By: #### L [id number] #### [facility] ([facility]) [address] [place] [address] Immature granulocytes/100 WBC (Bld) 1.1 % High 0.0-1.0 [facility] Comment on above: Performed By: #### L [id number] #### [facility] ([facility]) [address] [place] [address] Lymphocytes (Bld) [#/Vol] 0.40 10*3/uL Low 1.20-4.00 [facility] Comment on above: Performed By: #### L [id number] #### [facility] (BEAKER) [address] [place] [address] Lymphocytes/100 WBC (Bld) 4.2 % Low 20.0-45.0 [facility] Comment on above: Performed By: #### L [id number] #### [facility] (BEAKER) [address] [place] [address] MCH (RBC) [Entitic mass] 30.6 pg Normal 27.0-33.0 [facility] Comment on above: Performed By: #### L [id number] #### [facility] (BEAKER) [address] [place] [address] MCV (RBC) [Entitic vol] 92.5 fL Normal 82.0-98.0 [facility] Comment on above: Performed By: #### L [id number] #### [facility] ([facility]) [address] [place] [address] Monocytes (Bld) [#/Vol] 0.50 10*3/uL Normal 0.10-1.00 [facility] Comment on above: Performed By: #### L [id number] #### [facility] ([facility]) [address] [place] [address] Monocytes/100 WBC (Bld) 5.3 % Normal 5.0-12.0 [facility] Comment on above: Performed By: #### L [id number] #### [facility] ([facility]) [address] [place] [address] Neutrophils (Bld) [#/Vol] 8.47 10*3/uL High 1.60-7.60 [facility] Comment on above: Performed By: #### L [id number] #### [facility] ([facility]) [address] [place] [address] Neutrophils/100 WBC (Bld) 89.1 % High 40.0-72.0 [facility] Comment on above: Performed By: #### L [id number] #### [facility] ([facility]) [address] [place] [address] NRBC (PER 100 WBCS) BY AUTOMATED COUNT 0.0 % Normal 0 [facility] Comment on above: Performed By: #### L [id number] #### [facility] ([facility]) [address] [place] [address] PLATELETS (10*3/UL) IN BLOOD AUTOMATED COUNT 265 10*3/uL Normal 150-400 [facility] Comment on above: Performed By: #### L [id number] #### [facility] ([facility]) [address] [place] [address] RBC (Bld) [#/Vol] 5.85 10*6/uL High 3.80-5.[address] [facility] Comment on above: Performed By: #### L [id number] #### [facility]) [address] [place] [address] WBC (Bld) [#/Vol] 9.50 10*3/uL Normal 4.00-10.[address] [facility] Comment on above: Performed By: #### L [id number] #### [facility] ([facility]) [address] [place] [address] COMPREHENSIVE METABOLIC PANE Matty 08-01-2023 Albumin [Mass/Vol] 3.5 g/dL Normal 3.5-5.7 [facility] Comment on above: Performed By: #### L [id number] #### [facility] ([facility]) [address] [place] [address] ALP [Catalytic activity/Vol] 54 U/L Normal 34-104 [facility] Comment on above: Performed By: #### L [id number] #### [facility] ([facility]) [address] [place] [address] ALT [Catalytic activity/Vol] 10 U/L Normal 7-52 [facility] Comment on above: Performed By: #### L [id number] #### [facility] ([facility]) [address] [place] [address] Anion gap [Moles/Vol] 10 mmol/L Normal 7-20 [facility] Comment on above: Performed By: #### L [id number] #### [facility] ([facility]) [address] [place] [address] AST [Catalytic activity/Vol] 8 U/L Low 13-39 [facility] Comment on above: Performed By: #### L [id number] #### [facility] ([facility]) [address] [place] [address] Bilirubin [Mass/Vol] 0.9 mg/dL Normal 0.3-1.0 [facility] Comment on above: Performed By: #### L [id number] #### [facility] ([facility]) [address] [place] [address] Calcium [Mass/Vol] 9.0 mg/dL Normal 8.6-10.3 [facility] Comment on above: Performed By: #### L [id number] #### [facility] ([facility]) [address] [place] [address] Chloride [Moles/Vol] 90 mmol/L Low 98-107 [facility] Comment on above: Performed By: #### L [id number] #### [facility] ([facility]) [address] [place] [address] CO2 [Moles/Vol] 40 mmol/L High 21-31 [facility] Comment on above: Performed By: #### L [id number] #### [facility] ([facility]) [address] [place] [address] Creatinine [Mass/Vol] 0.60 mg/dL Normal 0.60-1.20 [facility] Comment on above: Performed By: #### L [id number] #### [facility] ([facility]) [address] [place] [address] GLOMERULAR FILTRATION RATE ML/MIN/1.73 SQ M.PREDICTED 111.3 mL/min/1.73m*2 Normal >60.0 [facility] Comment on above: Result Comment: The [facility]???s estimated glomerular filtration rate (eGFR) will [...] individuals. Performed By: #### L [id number] #### [facility] ([facility]) [address] [place] [address] Glucose [Mass/Vol] 280 mg/dL High 70-100 [facility] Comment on above: Performed By: #### L [id number] #### [facility] ([facility]) [address] [place] [address] Potassium [Moles/Vol] 3.5 mmol/L Normal 3.5-5.1 [facility] Comment on above: Performed By: #### L [id number] #### [facility] ([facility]) [address] [place] [address] Protein [Mass/Vol] 6.4 g/dL Normal 6.0-8.3 [facility] Comment on above: Performed By: #### L [id number] #### [facility] ([facility]) [address] [place] [address] Sodium [Moles/Vol] 136 mmol/L Normal 136-145 [facility] Comment on above: Performed By: #### L [id number] #### [facility] ([facility]) [address] [place] [address] Urea nitrogen [Mass/Vol] 27 mg/dL High 7-25 [facility] Comment on above: Performed By: #### L [id number] #### [facility] ([facility]) [address] [place] [address] UREA NITROGEN/CREATININE (MASS RATIO) IN SER/PLAS 45.0 Normal [facility] Comment on above: Performed By: #### L [id number] #### [facility] ([facility]) [address] [place] [address] CONSULTon 08-01-2023 CONSULT ----- ----- Attestation signed [...] PMH of Asthma, who presented intimally to [facility] on 07/25 due to SOB that started [...] to 76 mmHg. She was transferred to [facility] for Right heart Catheterization. She [...] likely d (more content not included)... Normal [facility] EXTRACTABLE NUCLEAR ANTIGEN ANTIBODIESon 08-01-2023 ANTI SM AB Negative Normal [facility] Comment on above: Performed By: #### L [id number] #### [facility] (BEAKER) [address] [place] [address] ANTI SM/ANTIRNP AB Negative Normal [facility] Comment on above: Performed By: #### L [id number] #### [facility] (BEAKER) [address] [place] [address] GRAM STAINon 08-01-2023 GRAM STAIN RESULT Normal [facility] Comment on above: Result Comment: Spec imen contains >25 Epithelial Cells/LPF, unsuitable for culture. Please submit a new specimen >25 Squamous Epithelial Cells Per Low Power Field >25 Polys Per Low Power Field Many Gram positive cocci in pairs Many Gram positive bacilli Performed By: #### L [id number] #### [facility] (BEAKER) [address] [address] HPon 08-01-2023 HP ----- ----- Attestation signed [...] PMH of Asthma, who presented intimally to [facility] on 07/25 due to SOB that started [...] to 76 mmHg. She was transferred to [facility] for Right heart Catheterization. She [...] likely d (more content not included)... Normal [facility] HP ----- ----- Attestation signed by [...] Lynn Age - 47 y.o. - 1975 [place] [address] # - [id number] Date of Admission - 08/01/2023 1:47 AM Chief Complaint Initial presentation to [facility] with worsening shortness of breath, transferred to [facility] for right heart cath History of Present Illness 47-year-old female who presented to [facility] on 07/25 with 4 days of worsening [...] following the patient's, who recommended transfer to [facility] for right heart cath. At [facility] Medication at [facility]: Tylenol, DuoNebs, Xanax, Lovenox for DVT prophylaxis, [...] for: PREALBUMIN, TSH, T3FREE, FREET4, CORTISOL, FEV1, [id number], DLCO, RVSP, HDL, LDL No results found for: [id number], IRON, (more content not included)... Normal [facility] MAGNESIUMon 08-01-2023 Magnesium [Mass/Vol] 1.9 mg/dL Normal 1.9-2.7 [facility] Comment on above: Performed By: #### L [id number] ####[facility] (BEAKER)[address] [place] [address] MPO/PR3 REFLEX TO ANCAon MYELOPEROXIDASE (MPO) AB, IGG 0 AU/mL Normal 0-19 [facility] Comment on above: Result Comment: INTE RPRETIVE INFORMATION: Myeloperoxidase Abs, IgG 19 AU/mL or Less ......... Negative 20-25 AU/mL .............. Equivocal 26 AU/mL or Greater ...... Positive Approximately 90% of patients with a P-ANCA pattern by IFA have antibodies specific for MPO. Performed By: #### L [id number] #### [facility] ([facility]) [address] [place] [address] SERINE PROTEINASE 3 (PR3) AB, IGG 1 AU/mL Normal 0-19 [facility] Comment on above: Result Comment: Myeloperoxidase [...] have antibodies specific for PR3. Performed By: [facility] [address] [place] [address] Hand Cloth Cutter: Saturnino Rai MD, PhD CLIA Number: [id number] Performed By: #### L [id number] #### [facility] ([facility]) [address] [place] [address] PHOSPHORUSon 08-01-2023 Magnesium [Mass/Vol] 3.8 mg/dL Normal 2.5-5.0 [facility] Comment on above: Performed By: #### L [id number] #### [facility] ([facility]) [address] [place] [address] POCT GLUCOSE METER UNSOLICIT ED RESULTSon 08-01-2023 Glucose [Mass/Vol] 310 mg/dL High 70-105 [facility] Comment on above: Order Comment: Waive d Testing in the ED is performed under the ED CLIA certificate #[id number]. Result Comment: ebol tz Performed By: #### L [id number] #### [facility] ([facility]) [address] [place] [address] Glucose [Mass/Vol] 233 mg/dL High 70-105 [facility] Comment on above: Order Comment: Waive d Testing in the ED is performed under the ED CLIA certificate #[id number]. Result Comment: [email or web address] Performed By: #### L [id number] #### [facility] (BEAKER) [address] [place] [address] PROCALCITONIN TESTon 023 PROCALCITONIN IN BLOOD 0.03 ng/mL Normal 0.00-0.10 [facility] Comment on above: Result Comment: Susp [...] PCT<0.5ng/mL Performed By: #### L [id number] #### [facility] (BEAKER) [address] [place] [address] PROTIME-INRon 08-01-2023 INR IN PPP BY COAGULATION ASSAY 1.10 Normal 0.90-1.10 [facility] Comment on above: Result Comment: [facility] P RECOMMENDED INR FOR WARFARIN THERAPY CONDITION [...] 1995;108:[id number]-246S. Performed By: #### L [id number] #### [facility] ([facility]) [address] [place] [address] PROTHROMBIN TIME (PT) IN PPP BY COAGULATION ASSAY 14.3 Seconds Normal 12.3-14.8 [facility] Comment on above: Performed By: #### L [id number] #### [facility] ([facility]) [address] [place] [address] TROPONIN Ion 08-01-2023 Troponin I.cardiac [Mass/Vol] 0.02 ng/mL Normal 0.00-0.04 [facility] Comment on above: Performed By: #### L [id number] #### [facility]) [address] [place] [address] [id number]-BzA-[id number] 04-18-2020 SARS-CoV-2 Not Detected Normal Not Detected [facility] in Hospital Comment on above: Result Comment: (NOT E) This test was developed and its performance characteristics determined by [employer]. This test has not been FDA cleared [...] detected) result in this assay. Performed At: [facility] [address] [facility] [place] [id number] Felisha Martinez MD Ph:[phone] Performed By: #### A COV #### [facility] [address] [place], [place] [id number] Call Center Support Representative: Lonnie Lozano MD Encounters Encounter Date Encounter Type Care Provider Facility Start: 10-29-2023 End: 10-29-2023 ambulatory [facility] Start: 10-10-2023 Evaluation and management of inpatient [facility] Start: 10-10-2023 Evaluation and management of inpatient [facility] Start: 10-09-2023 Evaluation and management of inpatient [facility] Start: 10-09-[address] [facility] Start: 10-09-2023 End: 10-10-2023 Evaluation and management of inpatient [facility] Start: 09-04-2023 End: 09-04-2023 ambulatory [facility] Start: 08-29-2023 End: 08-30-2023 ambulatory [facility] Start: 08-28-2023 End: 08-28-2023 ambulatory [facility] Start: 08-08-2023 Evaluation and management of inpatient CARLEY GOODRICH [facility] Start: 08-07-2023 Evaluation and management of inpatient VENTURA ARAUJO [facility] Start: 08-07-2023 Evaluation and management of inpatient DB FABI [facility] Start: 08-02-2023 Evaluation and management of inpatient LISSETTE DELGADO [facility] Start: 08-02-2023 ambulatory LISSETTE DELGADO [facility] Start: 08-02-2023 Evaluation and management of inpatient LISSETTE DELGADO [facility] Start: 08-02-2023 Evaluation and management of inpatient LISSETTE DELGADO [facility] Start: 08-01-2023 End: 08-09-2023 Evaluation and management of inpatient CARLEY GOODRICH [facility] Start: 04-15-2020 End: 04-16-2020 [facility] Start: 04-15-2020 End: 04-15-2020 Subsequent hospital visit by physician [facility] Comment on above: Arrived Procedures Date Procedure Procedure Detail Performing Clinician Start: 04-15-2020 COVID-19 [facility] Plan of Treatment Date Care Activity Detail Author Start: 05-18-2020 Influenza vaccination Flu vaccine (# 1) [place], [place] Start: 2015 Lipid panel Lipid screen [place], [place] Start: 1996 Screening for malign ant neoplasm of cervix Cervical cancer screen [place], [place] Start: 1994 DTaP/Tdap/Td vaccine (1 - Tdap) DTaP/Tdap/Td vaccine (1 - Tdap) [place], [place] Start: 1990 HIV screening HIV screen [place], [place] End: 04-15-2020 Covid-19 Ambulatory Covid-19 Ambulatory Lab Routine Once for 1 Occurrences starting 04/15/2020 until 04/15/2020 [place] Comment on above: Once for 1 Occurrenc es starting 04/15/2020 until 04/15/2020 Covid-19 Ambulatory Covid-19 Amb ulatory Lab Routine 04/15/2020 6:59 AM EDT [place], [place] Payers Date Payer Category Payer Private Health Insurance [id number] 2014 Unknown [id number] 2014 Unknown [employer] OCTAVIANO CURRY [address] [id number] 2014-Present [phone] [address] [place] [address] [id number] 1975 Unknown [id number] Social History Date Type Detail Facility Tobacco smoking status NMIS Unknown if ev er smoked [place] Sex Assigned At Not on file [place] Clinical Notes 08-02-2023 to 10-29-2023 Note Date & Type Note Facility 10-29-2023 Note [facility] Subjective Daniel Lynn is a 48 [...] evidence of ostium secundum ASD with significant njnx-jw-wqekl shunting across it, severe pulmonary hypertension and [...] pulmonary AV malformation or other source of xyxd-al-ajnjl shunting. She was started on therapy with [...] mg) by aubrie (more content not included)... [facility] 10-10-2023 Note Patient discharged w ith copy of AVS. IV removed, all belongings with patient. Patient provided post cath discharge instructions. All questions and concerns addressed. [facility] 10-10-2023 Note 10/10/23 1047 Admission Assessment [...] Yes Does the patient have a case filler assigned to them through their insurance? Yes [...] link and activate MyChart? MyChart already active [facility] 10-09-2023 Note Patient: Daniel bernstein Procedure Information Date/Time: 10/09/23 1300 Procedure: Atrial septal defect closure Location: [facility] SURGERY SCHEDULING COORDINATOR 3 / [facility] (Cath) Providers: Chris Florez MD [...] Plan discussed with attending. Additional Equipment Requests [facility] 08-28-2023 Note [place] [facility] Subjective Daniel Lynn is a 47 y.o. year old female patient being seen for follow up [facility]. Says her insurance will only [...] evidence of ostium secundum ASD with significant ykyn-kd-ctgfu shunting across it, severe pulmonary hypertension and [...] pulmonary AV malformation or other source of popk-kt-wjkob shunting. She was started on therapy with [...] 0.42 (L) 08/09/2023 (more content not included)... [facility] 08-09-2023 Note Called the [facility] for home [phone] and faxed script /f2f [phone] They are able to set up home . Patient given tank and advised to call [facility] once home( in route) Received fax, on phone with rep at [facility]. Received confirmation they have order and will set up for patient, [facility] 08-09-2023 Note Met with Patient bed [...] arrangements. Medical team notified of Pt decision [facility] 08-09-2023 Note Hospital Medicine Discharge Summary Final Discharge Diagnosis: Acute hypoxic respiratory failure, likely due to Pulmonary Hypertension Large secundum ASD with bidirectional flow. The largest septal defect measured 3.5 cm, confirmed by Cardiac MRI & MATT New onset DM-II Admission Diagnosis: Dyspnea on exertion [R06.09] Hospital course: 47-year-old female who presented to [facility] on 07/25 with 4 days of worsening [...] following the patient's, who recommended transfer to [facility] for right heart cath. At [facility] Medication at [facility]: Tylenol, DuoNebs, Xanax, Lovenox for DVT prophylaxis, [...] COVID-pneumonia. Patient was transferred to medical ICU [facility] for hypoxic respiratory failure likely due [...] Your Medications These medications were sent to [facility]/pharmacy #[id number] - [place], [place] - [address] [address] furosemide 40 mg tablet insulin detemir (more content not included)... [facility] 08-09-2023 Note ------ Attestation signed by Kvng Kumar MD at 08/09/2023 11:18 PM I reviewed the salient portions of the patient history. Agree with the noted assessment and plan. Kvng Kumar MD [facility] Physicians Pulmonary and Critical Care [...] Date Asthma COPD (chronic obstructive pulmonary disease) ([facility]) Diabetes mellitus ([facility]) Hypertension MTHFR gene mutation Obesity Allergies [...] shifts: In: 1 (more content not included)... [facility] 08-09-2023 Note 08/09/23 0920 Home Oxygen Therapy Evaluation Pulse Oximetry on room air at Rest 94 Pulse Ox on O2 with nasal cannula while at rest 94 (3 lpm) Pulse Ox on room air while walking 84 Pulse Ox on O2 with nasal cannula while walking 94 (3 lpm) Patient Qualification for home oxygen Qualifies Patient qualifies for home oxygen 3 lpm. [facility] 08-08-2023 Note Hospital Medicine Daily Progress Note - 08/08/2023 1:15 PM; Room: 310/3104- Admission: 08/01/2023 1:47 AM; Length of stay: 7 days THE HOSPITALIST TEAM PREFERS TO USE Medcurrent FOR COMMUNICATION 7AM-7PM. IF I DO NOT RESPOND WITHIN 15 MINUTES, PLEASE PAGE ME/CALL THROUGH THE DIALYSIS EQUIPMENT TECHNICIAN. FROM 7PM-7AM, PLEASE PAGE [phone](COVR) Code Status: Full Code Barriers to Discharge: [...] TSH 0.56 08/03/2023 No results found for: [id number], IRON, TIBC, C3, C4, PHANI, CANCA, ASO, [...] vascular detail. FI (more content not included)... [facility] 08-08-2023 Note Nutrition Screening Assessment: Patient Name: Daniel Lynn : 1975 Date of Assessment: 08/08/23 Nutrition re-screen completed Past Medical History: Diagnosis Date Asthma COPD (chronic obstructive pulmonary disease) ([facility]) Diabetes mellitus ([facility]) Hypertension MTHFR gene mutation Obesity Information [...] Comments: Entree salad, tomato, cucumber, ranch and djiboutian dressing, diet coke, quesadilla with grilled chicken [...] with questions and contact the dietitian via [employer] chat 8A-4P Sunday-Sunday. Or call the dietitian's office at [email or web address] [phone]. For weekends/holidays, the dietitian's can be reached by paging [phone] from 9A-3P. Unable to be reached via epic chat on Sunday & .) [facility] 08-08-2023 Note ------ Attestation signed by Raza Leonard MD at 08/08/2023 12:46 PM I reviewed the salient portions of the patient history. I have seen and examined the patient during rounds with the resident/fellow. I repeated the askew components of the exam. Agree with the noted assessment and plan. Raza Leonard MD [facility] Physicians Pulmonary interventional and Critical [...] Date Asthma COPD (chronic obstructive pulmonary disease) ([facility]) Diabetes mellitus ([facility]) Hypertension MTHFR gene mutation Obesity Allergies [...] MSK: no my (more content not included)... [facility] 08-08-2023 Note Occupational Therapy Occupational Therapy Evaluation Patient Name: Daniel Lynn : 1975 Today's Date: 08/08/2023 Time In: 742 Time Out: 754 47 y/o female adm from OSH with pneumonia and for workup for atrial septal defect. [facility] 08/04/23 General Subjective: friendly and cooperative, reports [...] Level of Function Prior Function Level of Mcdonald: Independent with ADLs and functional transfers, Independent [...] Eating meals?: None (Independent) Total Score OT [facility]: 24 Assessment/Plan OT Assessment OT Education/Comments: may benefit to use shower chair, brief discussion about ws/ec/pacing with good verbal return Plan OT Plan: No skilled OT Equipment Recommended: (ssc) OT - Discharge Recommendations Placed: Yes OT Goals Multi-Disciplinary Problems (from Occupational Therapy) Active Problems Not on file [facility] 08-08-2023 Note ------ Attestation signed by [...] Transesophageal Echo (MATT) Result Date: 08/07/2023 1 [facility] Heart Station [address] [place] [address] [phone] (fax) Transesophageal Echocardiogram-[facility] Name: DANIEL LYNN Study Date: 08/07/2023 04:01 PM B/P: 124 mmHg/80 mmHg HR: 97 bpm Date of : 1975 Location: [facility] Height: 62 in. Age: 47 year(s) Patient Room: 3233 Weight: 268 lb. Gender: Female Patient Status: InPt BSA: 2.16 m2 Indication: pre-op ASD Examination: MATT/Limited Doppler/CFI, 3D images Image Quality: Good Patient Consent: Informed, written consent was obtained for the procedure Exam Location: A MATT was performed in the Compressed Yeast Supervisor without complications Anesthesia Pharyngeal anesthesia with viscous [...] aortic valve regurgi (more content not included)... [facility] 08-07-2023 Note Patient: Daniel rizvi Procedure Information Date/Time: 08/07/23 1000 Procedures: Coronary angiography Right heart cath Location: [facility] SURGERY SCHEDULING COORDINATOR 2 BIPLANE / [facility]ASCULAR [facility] (Cath) Providers: Chris Florez MD [...] with fellow and attending. Additional Equipment Requests [facility] 08-07-2023 Note H&P reviewed. RHC an d cardiac CT c/w PH and ASD. Plan for RHC/coronary angiogram for assessment of ASD closure. Procedures' details, risks and benefits discussed with the patient and she's agreeable. 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 [facility] 08-07-2023 Note ------ Attestation signed by [...] Bubble Study Result Date: 08/02/2023 1 [facility] Heart Station [address] [place] [address] (fax) Echocardiogram-[facility] Name: DANIEL LYNN Study Date: 08/02/2023 09:04 AM B/P: 121 mmHg/88 mmHg HR: 66 bpm Date of : 1975 Location: [facility] Height: 62 in. Age: 47 [...] tricuspid valve debora (more content not included)... [facility] 08-07-2023 Note ------ Attestation signed by Kvng Kumar MD at 08/07/2023 11:57 PM I reviewed the salient portions of the patient history. I have seen and examined the patient during rounds with the resident/fellow. I repeated the askew components of the exam. Agree with the noted assessment and plan. Kvng Kumar MD [facility] Physicians Pulmonary and Critical Care Medicine ------ Medical ICU Progress Note Patient - Daniel Lynn Age - 47 y.o. - 1975 N - [id number] [facility] # - [id number] Date of Admission - 08/01/2023 1:47 AM HPI/Hospital Course Subjective 47-year-old female who presented to [facility] on 07/25 with 4 days of worsening [...] following the patient's, who recommended transfer to [facility] for right heart cath. At [facility] Medication at [facility]: Tylenol, DuoNebs, Xanax, Lovenox for DVT prophylaxis, [...] COVID-pneumonia. Patient was transferred to medical ICU [facility] for hypoxic respiratory failure likely due [...] 24 hours) at (more content not included)... [facility] 08-06-2023 Note ------ Attestation signed by [...] Bubble Study Result Date: 08/02/2023 1 [facility] Heart Station [address] [place] [address] [phone] (fax) Echocardiogram-[facility] Name: DANIEL LYNN Study Date: 08/02/2023 09:04 AM B/P: 121 mmHg/88 mmHg HR: 66 bpm Date of : 1975 Location: [facility] Height: 62 in. Age: 47 [...] Global left ventricu (more content not included)... [facility] 08-06-2023 Note ------ Attestation signed by [...] Course Subjective 47-year-old female who presented to [facility] on 07/25 with 4 days of worsening [...] following the patient's, who recommended transfer to [facility] for right heart cath. At [facility] Medication at [facility]: Tylenol, DuoNebs, Xanax, Lovenox for DVT prophylaxis, [...] COVID-pneumonia. Patient was transferred to medical ICU [facility] for hypoxic respiratory failure likely due [...] Decrease breath sounds (more content not included)... [facility] 08-05-2023 Note Subjective Daniel Lynn is a 47 y.o. female with PMH of Asthma and Obesity who was initially evaluated in [place] on 07/25 with with 4 days of [...] the patient and they recommended transfer to [facility] for right heart catherization. She arrived to [facility] 08/01 where she was admitted [...] Neurological: Mental Stat (more content not included)... [facility] 08-05-2023 Note Subjective Daniel Lynn is a 47 y.o. female with PMH of Asthma and Obesity who was initially evaluated in [place] on 07/25 with with 4 days of [...] the patient and they recommended transfer to [facility] for right heart catherization. She arrived to [facility] 08/01 where she was admitted [...] Neurological: Mental Stat (more content not included)... [facility] 08-05-2023 Note Cardiology Progress Note Subjective [...] Bubble Study Result Date: 08/02/2023 1 1 [facility] Heart Station [address] [place] [address] [phone] (fax) Echocardiogram-[facility] Name: DANIEL LYNN Study Date: 08/02/2023 09:04 AM B/P: 121 mmHg/88 mmHg HR: 66 bpm Date of : 1975 Location: [facility] Height: 62 in. Age: 47 [...] thickness is mildl (more content not included)... [facility] 08-05-2023 Note ------ Attestation signed by [...] We will obtain a baseline PCO2, and detailer furniture PCO2 without using BiPAP, to see if we can qualify her for BiPAP at home. Clinically patient is at very high risk for obstructive sleep apnea , and also have consistent history. ------ Medical ICU Progress Note Patient - Daniel Lynn Age - 47 y.o. - 1975 [facility] - [id number] Date of Admission - 08/01/2023 1:47 AM HPI/Hospital Course Subjective 47-year-old female who presented to [facility] on 07/25 with 4 days of worsening [...] following the patient's, who recommended transfer to [facility] for right heart cath. At [facility] Medication at [facility]: Tylenol, DuoNebs, Xanax, Lovenox for DVT prophylaxis, [...] COVID-pneumonia. Patient was transferred to medical ICU [facility] for hypoxic respiratory failure likely due [...] via nasal cannula. (more content not included)... [facility] 08-04-2023 Note ------ Attestation signed by [...] Bubble Study Result Date: 08/02/2023 1 1 [facility] Heart Station [address] [place] [address] [phone] (fax) Echocardiogram-[facility] Name: DANIEL LYNN Study Date: 08/02/2023 09:04 AM B/P: 121 mmHg/88 mmHg HR: 66 bpm Date of : 1975 Location: [facility] Height: 62 in. Age: 47 [...] Value Normal Value (more content not included)... [facility] 08-04-2023 Note ------ Attestation signed by [...] Lynn Age - 47 y.o. - 1975 [facility] # - [id number] Date of Admission - 08/01/2023 1:47 AM HPI/Hospital Course Subjective 47-year-old female who presented to [facility] on 07/25 with 4 days of worsening [...] following the patient's, who recommended transfer to [facility] for right heart cath. At [facility]ication [facility]: Tylenol, DuoNebs, Xanax, Lovenox for DVT prophylaxis, [...] COVID-pneumonia. Patient was transferred to medical ICU [facility] for hypoxic respiratory failure likely due [...] is 112/76 a (more content not included)... [facility] 08-03-2023 Note ------ Attestation signed by [...] Course Subjective 47-year-old female who presented to [facility] on 07/25 with 4 days of worsening [...] following the patient's, who recommended transfer to [facility] for right heart cath. At [facility] Medication at [facility]: Tylenol, DuoNebs, Xanax, Lovenox for DVT prophylaxis, [...] COVID-pneumonia. Patient was transferred to medical ICU [facility] for hypoxic respiratory failure likely due [...] move all extremities, (more content not included)... [facility] 08-03-2023 Note ------ Attestation signed by [...] an additional personal documentation from me. Await [facility] ------ Cardiology Progress Note Subjective Subjective: Daniel [...] Bubble Study Result Date: 08/02/2023 1 1 [facility] Heart Station [address] [place] [address] [phone] (fax) Echocardiogram-[facility] Name: DANIEL LYNN Study Date: 08/02/2023 09:04 AM B/P: 121 mmHg/88 mmHg HR: 66 bpm Date of : 1975 Location: [facility] Height: 62 in. Age: 47 [...] severely enlarged. Se (more content not included)... [facility] 08-02-2023 Note Patient: Daniel rizvi Procedure Information Date/Time: 08/02/23 1610 Procedure: Right heart cath Location: [facility] SURGERY SCHEDULING COORDINATOR 3 / [facility]ASCULAR [facility] (Cath) Providers: Chris Florez MD [...] with fellow and attending. Additional Equipment Requests [facility] 08-02-2023 Note Pharmacy Dosing Serv ice - Vancomycin Initial Consult Note Pharmacy has been consulted for the dosing and evaluation of Drug: Vancomycin Indication: pneumonia AUC 400-600 mg*hr/L and trough 10-20 mcg/mL Other Antimicrobial Regimens: cefepime 2g q8h Labs and Renal Function Total body weight: 122 kg (268 lb 8.3 oz) [place] body weight: 50.1 kg (110 lb 7.9 [...] Assessment / Comments: - 47yoF transferred to [facility] from OSH and admitted to ICU 08/01 for acute hypoxic respiratory failure likely due to severe pulmonary hypertension and potential pneumonia. Viral panel at OSH positive for rhinovirus. Procal upon admission to [facility] 0.03. WBC increased from 9.5 [...] 08/02/23 Plan discussed with Betsy Eckert PharmD [facility] 08-02-2023 Note ------ Attestation signed by [...] Neva Portillo MD PGY-2 Internal Medicine Resident [facility] 08-02-2023 Note ------ Attestation signed by Lissetet Delgado MD at 08/02/2023 4:23 PM I [...] Lynn Age - 47 y.o. - 1975 [facility] # - [id number] Date of Admission - 08/01/2023 1:47 AM [...] mEq/L Final No results found for: PHVEN, XCW2RNM, PO2VEN, TDO0UEV, IONCALVEN CBC: Results from last 7 days [...] Infusions: As Need (more content not included)... 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 [employer] provides no warranty or guarantee of the accuracy or completeness of information in this document.
--- NOTE | 2024-03-14 09:00 | CA_ITS ---
Patient Name: DANIEL LYNN MR#: [id number] : 1975 Exam Date: 03/14/2024 Ordering Doctor: DR CHRIS FLOREZ M.D. ECHOCARDIOGRAM REPORT PROCEDURE: CA ECHO DOPPLER COMPLETE INDICATIONS: ASD- s/p device closure COMPARISON: None. DESCRIPTION: COMPLETE ECHOCARDIOGRAM Real-time transthoracic echocardiography with 2D, M-mode, spectral and color flow Doppler performed. QUALITY: Technical quality was adequate. LEFT VENTRICLE: Normal chamber size. Mild concentric left ventricular hypertrophy. Normal systolic function. LV EF: Normal left ventricular ejection fraction, (55-60%). DIASTOLIC: Grade I diastolic dysfunction. ATRIAL SEPTUM: A septal closure device is well seated. Agitated saline contrast does not reveal an intra-cardiac shunt. LEFT ATRIUM: Mild dilatation. RIGHT ATRIUM: Moderate dilatation. RIGHT VENTRICLE: Moderate dilatation. Mildly reduced right ventricular systolic function. TRICUSPID VALVE: Normal mobility and thickness. No stenosis with trivial regurgitation. Doppler studies reveal mildly (35-45) elevated right sided pressures. RVSP 43 mmHg MITRAL VALVE: Normal mobility and thickness. No evidence of mitral valve stenosis. Mild mitral annular calcification. Trivial mitral regurgitation. AORTIC VALVE: Normal trileaflet appearance. No visible sclerosis. Normal leaflet mobility. No evidence of aortic valve stenosis. No aortic regurgitation. AORTIC ROOT: Normal diameter and appearance. Ascending aorta is normal in size. PULMONIC VALVE: Normal thickness and mobility. No stenosis. Trivial regurgitation. PERICARDIUM: No evidence of pericardial effusion. IVC: Collapses with inspirations. IVC is normal in size. PLEURA: CONCLUSION: 1. Mild concentric left ventricular hypertrophy with normal systolic function. LVEF is 55-60%. 2. Moderate right ventricular dilatation with mildly reduced systolic function. 3. Moderate right atrial dilatation. 4. No significant valvular dysfunction. 5. Mildly elevated right sided pressures. RVSP is 43 mmHg. 6. Atrial septal closure device is well seated. Agitated saline contrast does not reveal an intra-cardiac shunt. Adult Echocardiography Procedure Report Left Ventricle LVEDD (3.7 - 5.6 cm): 4.83 cm LVESD (2.2 - 4.0 cm): 4.04 cm LVIVS thickness (0.6 - 1.2 cm): 1.19 cm LVPW thickness (0.5 - 1.0 cm): 1.35 cm e': 0.09 m/s E - e': 8.75 LVOT Max Gradient: 2.64 mm[Hg] LVOT Area (cm2): 0.81 m/s Peak Velocity (LVOT): 0.81 m/s Mean Velocity (LVOT): 0.51 m/s Left Atrium LA Volume Index (2D A2C): 48.78 ml/m2 Left Atrium Systolic Dimension: 4.22 cm Mitral Valve MV E to A Ratio: 0.78 Mitral Valve A-Wave Peak Velocity: 1.01 m/s Mitral Valve E-Wave Peak Velocity: 0.78 m/s Right Ventricle Aorta AO Root Diam: 3.12 cm Ascending Ao Diam: 3.20 cm Aortic Valve Peak Velocity(Antegrade Flow): 1.55 m/s Peak Gradient(Antegrade Flow): 9.55 mm[Hg] Mean Velocity(Antegrade Flow): 1.04 m/s Mean Gradient(Antegrade Flow): 4.99 mm[Hg] Velocity Time Integral: 31.55 cm Tricuspid Valve Peak Velocity (Regurgitant Flow): 3.15 m/s Pulmonic Valve Peak Gradient: 9.06 mm[Hg], 9.71 mm[Hg] Right Atrium Right Atrium Systolic Pressure: 78.78 ml, 78.78 ml Dictated by: Chris Florez M.D. on 03/14/2024 at 21:15 Approved by: Chris Florez M.D. on 03/14/2024 at 21:25
== END 2024-03-14 08:39 | disposition home or self-care (01) ==
LOC: CARD 08:39
PROVIDERS: PCP Family Medicine; Visit Provider Internal Medicine Interventional Cardiology
DX: Q21.10 Atrial septal defect, unspecified (principal); Z87.74 Personal history of (corrected) congenital malformations of heart and circulatory system; I27.29 Other secondary pulmonary hypertension; Q24.9 Congenital malformation of heart, unspecified
CPT/HCPCS: 93306

== ENCOUNTER 2025-03-13 07:29 | Outpatient (OUT) | payer OTHER, SELFPAY ==
--- OUTSIDE RECORDS SUMMARY | 2025-03-13 07:32 | XMS_ITS | CCD ---
Author Organization [facility] ion [facility] Care Team Providers Care Dump Grader Name Role Phone BRANDIE PACHECO Referring Unavailable FAVIO SANTIAGO Primary Care Unavailable Favio Santiago Primary Care Provider [phone] LISSETTE DELAGDO Referring Unavailable FABIDB Referring Unavailable MOUKARBEL, CHRIS Referring Unavailable MOUKARBEL, CHRIS Referring Unavailable ALI, LISSETTE PEREZ Referring Unavailable ALI, LISSETTE PEREZ Referring Unavailable MOUKARBEL, CHRIS Admitting Unavailable MOUKARBEL, CHRIS Attending Unavailable MOUKARBEL, CHRIS Admitting Unavailable MOUKARBEL, CHRIS Attending Unavailable MOUKARBEL, CHRIS Referring Unavailable ALI, LISSETTE PEREZ Referring Unavailable MOUKARBEL, CHRIS Referring Unavailable MOUKARBEL, CHRIS Attending Unavailable MOUKARBEL, CHRIS Referring Unavailable MOUKARBEL, CHRIS Referring Unavailable MOUKARBEL, CHRIS Referring Unavailable MOUKARBEL, CHRIS Attending Unavailable MOUKARBEL, CHRIS Attending Unavailable ALI, MCLAUGHLINASHLEY PEREZ Referring Unavailable DAVEYOLMAN Referring Unavailable ALI, MCL[place]IN ANA Admitting Unavailable ALI, MCLAUGHLIN ANA Consulting Unavailable AMERICOLIAI Attending Unavailable GILBERT, KVNG Consulting Unavailable ARAUJO, VENTURA Referring Unavailable AMERICO, LIAI Referring Unavailable ALI, MCLAUGHLIN ANA Referring Unavailable Allergies Allergy Classification Reported Allergen(s) Allergy Type Date of Onset Reaction(s) Facility (1 source) Lisinopril; Translations: [LISINOPRIL] Drug Allergy 08-01-20 [facility] Repository (1 source) Penicillins; Translations: [PENICILLINS] Propensity to adverse reactions to drug (disorder) 08-01-20 [facility] Repository (1 source) Sulfamethoxazole / Trimethoprim; Translations: [SULFAMETHOXAZOLE-TR IMETHOPRIM] Drug Allergy 08-01-20 [facility] Repository Problems Active Problems Problem Classification Problem Date Documented Da te Episodic/Chronic Cardiac and circulatory congenital anomalies (2 sources) Congenital malformation of heart, unspecified; Translations: [Congenital malformation of heart, unspecified] Onset: 09-26-2023 Chronic Pulmonary heart disease (4 sources) Other secondary pulmonary hypertension; Translations: [Pulmonary hypertension, unspecified] Onset: 08-01-2023 Chronic Unclassified (1 source) Atrial septal defect, unspecified; Translations: [Atrial septal defect, unspecified] Onset: 10-10-2023 Unclassified (1 source) Secundum atrial septal defect; Translations: [Secundum atrial septal defect] Onset: 08-29-2023 Past or Other Problems Problem Classification Problem Date Documented Date [...] Value Interpretation Reference Range Facility Office Visiton 04-04-2024 Follow-up visit [id number] Shelly Lynn 1975 F Date Provider Department Center 04/04/2024 CHRIS CANNON [facility] No family history on file Level of Service:27619 [place] OFFICE/OUTPATIENT ESTABLISHED MOD MDM 30 MIN Normal [facility] Orders Onlyon 11-06-2023 Orders Only [id number] Shelly Lnyn 1975 F Date Provider Department Center 11/06/2023 CURT CRUMP [facility]XMI [facility] No family history on file Normal [facility] Office Visiton 10-29-2023 Follow-up visit [id number] Shelly Lynn Richie 1975 F Date Provider Department Center 10/29/2023 Dona-CHRIS ROGER [facility] No family history on file Level of Service:87225 [place] OFFICE/OUTPATIENT ESTABLISHED MOD MDM 30 MIN Normal [facility] 30on 10-10-2023 30 The patient is [...] and behaviors that affect risk of falls [place] fall precautions as indicated by assessment Educate patient/family on patient safety, including physical limitations Problem: Discharge Planning Goal: Discharge to home or other facility with appropriate resources Outcome: Progressing Problem: Chronic Conditions and Co-morbidities Goal: Patient's chronic conditions and co-morbidity symptoms are monitored and maintained or improved Outcome: Progressing Normal [facility] DSon 10-10-2023 DS ----- ----- Attestation [...] a large atrial septal defect and significant pjab-ix-hegen shunting across it, enlarged right-sided chambers, and [...] performed 10/10. Echocardiogram reviewed by Dr. Roger, automotive painter helper, and without concerning findings. Patient cleared for [...] Center 10/29/2023 2:45 PM Chris Roger MD [facility] Your medication list START taking these [...] Medications These medications were sent to [facility] [address] [place] [address] [place] [address], [facility] [address] clopidogrel 75 mg tablet Daniel is allergic [...] are c (more content not included)... Normal [facility] HEMOGLOBIN AND HEMATOCRIT, B LOODon 10-10-2023 Hematocrit (Bld) [Volume fraction] 41.2 % Normal 36.0-48.0 [facility] Comment on above: Performed By: #### L [id number] #### [facility] ([facility]) [address] [place] [address] Hemoglobin (Bld) [Mass/Vol] 13.7 g/dL Normal 12.0-15.0 [facility] Comment on above: Performed By: #### L [id number] #### [facility] ([facility]) [address] [place] [address] 30on 10-09-2023 30 The patient is Moder ately Stable [...] and behaviors that affect risk of falls [place] fall precautions as indicated by assessment Educate [...] maintained or improved Outcome: Progressing Flowsheets (Taken 10/09/20235) Care Plan - Patient's Chronic Conditions and [...] and prevent overall improvement and discharge Normal [facility] HPon 10-09-2023 HP History Of Present Illness Daniel Lynn is a 48 y.o. female is here today for her scheduled ASD closure. She was initially seen on on 08/01/2023 with acute respiratory failure and hypoxia in hospital. Investigation revealed evidence of ostium secundum ASD with significant ttlh-sh-lwnym shunting across it, severe pulmonary hypertension and [...] pulmonary AV malformation or other source of mfkz-qf-yqtzj shunting. She was started on therapy with [...] (chronic obstructive pulmonary disease) ([facility]), Diabetes mellitus ([facility]), Hypertension, MTHFR gene mutation, Obesity, and Sleep [...] to se (more content not included)... Normal [facility] NURSNOTEon 10-09-2023 NURSNOTE Report given to Jo keita RN from [facility] Any medications or safety alerts were reviewed. Any pending diagnostics and notifications were also reviewed, as well as any safety concerns or issues, abnormal labs, abnormal imagining, and abnormal assessment findings. Questions were answered. Normal [facility] NURSNOTE Updated Dr Roger regarding IVF order. V.O. to hold IVF for now. Normal [facility] Orders Onlyon 10-03-2023 Orders Only [id number] Shelly Lynn 1975 F Date Provider Department Center 10/03/2023 LATASHA CRUZ [facility] No family history on file Normal [facility] Prep for Procedureon 024 Prep for Procedure [id number] Shelly Lynn 1975 F Date Provider Department Center 09/25/2023 Michaela-SHIRA MCDANIELS [facility] No family history on file [facility] Prep for Procedureon 023 Prep for Procedure [id number] Shelly Lynn arthur Quiroz 1975 F Date Provider Department [place] 08/30/2023 CHRIS CANNON [facility] [place] Count No family history on file [facility] Office Visiton 08-28-2023 Follow-up visit [id number] Scout Lynnkerrie Quiroz 1975 F Date Provider Department [place] 08/28/2023 CHRIS CANNON [facility] No family history on file Level of Service:51285 [place] OFFICE/OUTPATIENT ESTABLISHED HIGH MDM 40-54 MIN [facility] 30on 08-09-2023 30 Internal Communications Intern received VM f or patient stating she needs assistance with the medications she was discharged with. Internal Communications Intern reached out to patient who states that her INS will only cover 1/2 pill of Sildenafil per day. Patient continues to explain that she paid OOP for her first prescription of Sildenafil, but that she needs her Pharmacy Account Director to reach out to INS to discuss this and have it resolved, she reports that she plans to call Dr. Felder's office Sunday to have them assist. No other needs voiced at this time, newswriter urged patient to call OTM line next week if she has any further issues with her medications. [facility] 30 Problem: Pain - Adul t Goal: [...] and behaviors that affect risk of falls [place] fall precautions as indicated by assessment Educate [...] mucous memb (more content not included)... Normal [facility] BASIC METABOLIC PANELon 11-2 Anion gap [Moles/Vol] 9 mmol/L Normal 7-20 [facility] Comment on above: Performed By: #### L [id number] #### [facility] ([facility]) [address] [place] [address] Calcium [Mass/Vol] 8.7 mg/dL Normal 8.6-10.[address] [facility] Comment on above: Performed By: #### L [id number] #### [facility] ([facility]) [address] [place] [address] Chloride [Moles/Vol] 100 mmol/L Normal 98-107 [facility] Comment on above: Performed By: #### L [id number] #### [facility] ([facility]) [address] [place] [address] CO2 [Moles/Vol] 30 mmol/L Normal 21-31 [facility] Comment on above: Performed By: #### L [id number] #### [facility] ([facility]) [address] [place] [address] Creatinine [Mass/Vol] 0.42 mg/dL Low 0.60-1.20 [facility] Comment on above: Performed By: #### L [id number] #### [facility] ([facility]) [address] [place] [address] GLOMERULAR FILTRATION RATE ML/MIN/1.73 SQ M.PREDICTED 121.3 mL/min/1.73m*2 Normal >60.0 [facility] Comment on above: Result Comment: The [facility]???s estimated glomerular filtration rate (eGFR) will [...] individuals. Performed By: #### L [id number] #### [facility] ([facility]) [address] [place] [address] Glucose [Mass/Vol] 146 mg/dL High 70-[address] [facility] Comment on above: Performed By: #### L [id number] #### [facility] ([facility]) [address] [facility] [place] [address] Potassium [Moles/Vol] 3.7 mmol/L Normal 3.5-5.1 [facility] Comment on above: Performed By: #### L [id number] #### [facility] ([facility]) [address] [facility] [place] [address] Sodium [Moles/Vol] 135 mmol/L Low 136-[address] [facility] Comment on above: Performed By: #### L [id number] #### [facility] ([facility] [address] [place] [place] [address] Urea nitrogen [Mass/Vol] 17 mg/dL Normal 7-25 [facility] Comment on above: Performed By: #### L [id number] #### [facility] ([facility]) [address] [facility] [place] [address] UREA NITROGEN/CREATININE (MASS RATIO) IN SER/PLAS 40.5 Normal [facility] Comment on above: Performed By: #### L [id number] #### [facility] ([facility]) [address] [place] [address] CBCon 08-09-2023 Erythrocyte distribution width (RBC) [Ratio] 13.1 % Normal 11.5-15.0 [facility] Comment on above: Performed By: #### L [id number] #### [facility] ([facility]) [address] [place] [address] ERYTHROCYTE MEAN CORPUSCULAR HEMOGLOBIN CONCENTRATION (G/DL) BY AUTOMATED 32.6 g/dL Normal 32.0-35.0 [facility] Comment on above: Performed By: #### L [id number] #### [facility] ([facility]) [address] [place] [address] Hematocrit (Bld) [Volume fraction] 43.5 % Normal 36.0-48.0 [facility] Comment on above: Performed By: #### L [id number] #### [facility] ([facility]) [address] [place] [address] Hemoglobin (Bld) [Mass/Vol] 14.2 g/dL Normal 12.0-15.0 [facility] Comment on above: Performed By: #### L [id number] #### [facility] ([facility]) [address] [place] [address] MCH (RBC) [Entitic mass] 30.3 pg Normal 27.0-33.0 [facility] Comment on above: Performed By: #### L [id number] #### [facility] ([facility]) [address] [place] [address] MCV (RBC) [Entitic vol] 92.9 fL Normal 82.0-98.0 [facility] Comment on above: Performed By: #### L [id number] #### [facility] ([facility]) [address] [place] [address] PLATELETS (10*3/UL) IN BLOOD AUTOMATED COUNT 178 10*3/uL Normal 150-400 [facility] Comment on above: Performed By: #### L [id number] #### [facility] ([facility]) [address] [place] [address] RBC (Bld) [#/Vol] 4.68 10*6/uL Normal 3.80-5.00 [facility] Comment on above: Performed By: #### L [id number] #### [facility] ([facility]) [address] [place] [address] WBC (Bld) [#/Vol] 7.40 10*3/uL Normal 4.00-10.60 [facility] Comment on above: Performed By: #### L [id number] #### [facility] ([facility]) [address] [place] [address] MAGNESIUMon 08-09-2023 Magnesium [Mass/Vol] 1.7 mg/dL Low 1.9-2.7 [facility] Comment on above: Performed By: #### L [id number] #### [facility] ([facility]) [address] [place] [address] NURSNOTEon 08-09-2023 NURSNOTE Discharge paperwork reviewed with pt; copy of paperwork given to pt. Reviewed new medications with pt. Pt expresses understanding of instructions. Pt currently waiting on family for ride home. Normal [facility] PHOSPHORUSon 08-09-2023 Magnesium [Mass/Vol] 4.3 mg/dL Normal 2.5-5.0 [facility] Comment on above: Performed By: #### L [id number] #### [facility] ([facility]) [address] [place] [address] POCT GLUCOSE METER UNSOLICIT ED RESULTSon 08-09-2023 Glucose [Mass/Vol] 151 mg/dL High 70-[address] [facility] Comment on above: Order Comment: Waive d Testing in the ED is performed under the ED CLIA certificate #[id number]. Result Comment: [email or web address] Performed By: #### L [id number] #### [facility] ([facility]) [address] [place] [address] Glucose [Mass/Vol] 124 mg/dL High 70-105 [facility] Comment on above: Order Comment: Waive d Testing in the ED is performed under the ED CLIA certificate #[id number]. Result Comment: [email or web address] Performed By: #### L [id number] #### [facility] ([facility]) [address] [place] [address] Refillon 08-09-2023 Refill [id number] Shelly Lynn 1975 F Date Provider Department Center 08/09/2023 Primo-CARLEY GOODRICH [facility] 3AB MD Medical C No family history on file Reason for Visit and Comments: Med Change Request [411] Normal [facility] 30on 08-08-2023 30 The patient is [...] Consider OT/PT consult to assist with strengthening/mobility [place] fall precautions as indicated by assessment Educate [...] symptoms for stability, deterioration, or improvement Normal [facility] BASIC METABOLIC PANELon 11-2 Anion gap [Moles/Vol] 7 mmol/L Normal 7-20 [facility] Comment on above: Performed By: #### L [id number] #### [facility] ([facility] [address] [place] [address] Calcium [Mass/Vol] 8.5 mg/dL Low 8.6-10.[address] [facility] Comment on above: Performed By: #### L [id number] #### [facility] ([facility]) [address] [place] [address] Chloride [Moles/Vol] 102 mmol/L Normal 98-107 [facility] Comment on above: Performed By: #### L [id number] #### [facility] ([facility]) [address] [place] [address] CO2 [Moles/Vol] 30 mmol/L Normal 21-31 [facility] Comment on above: Performed By: #### L [id number] #### [facility] ([facility]) [address] [place] [address] Creatinine [Mass/Vol] 0.60 mg/dL Normal 0.60-1.20 [facility] Comment on above: Performed By: #### L [id number] #### [facility] ([facility]) [address] [place] [address] GLOMERULAR FILTRATION RATE ML/MIN/1.73 SQ M.PREDICTED 111.3 mL/min/1.73m*2 Normal >60.0 [facility] Comment on above: Result Comment: The [facility]???s estimated glomerular filtration rate (eGFR) will [...] group of individuals. Performed By: #### L [id number] #### [facility] ([facility]) [address] [place] [address] Glucose [Mass/Vol] 145 mg/dL High 70-[address] [facility] Comment on above: Performed By: #### L [id number] #### [facility] ([facility]) [address] [place] [address] Potassium [Moles/Vol] 3.9 mmol/L Normal 3.5-5.1 [facility] Comment on above: Performed By: #### L [id number] #### [facility] ([facility]) [address] [place] [address] Sodium [Moles/Vol] 135 mmol/L Low 136-[address] [facility] Comment on above: Performed By: #### L [id number] #### [facility] ([facility]) [address] [place] [address] Urea nitrogen [Mass/Vol] 22 mg/dL Normal 7-25 [facility] Comment on above: Performed By: #### L [id number] #### [facility] ([facility]) [address] [place] [address] UREA NITROGEN/CREATININE (MASS RATIO) IN SER/PLAS 36.7 Normal [facility] Comment on above: Performed By: #### L [id number] #### [facility] ([facility]) [address] [place] [address] CBCon 08-08-2023 Erythrocyte distribution width (RBC) [Ratio] 13.0 % Normal 11.5-15.0 [facility] Comment on above: Performed By: #### L [id number] #### [facility] ([facility]) [address] [place] [address] ERYTHROCYTE MEAN CORPUSCULAR HEMOGLOBIN CONCENTRATION (G/DL) BY AUTOMATED 31.8 g/dL Low 32.0-35.0 [facility] Comment on above: Performed By: #### L [id number] #### [facility] ([facility]) [address] [place] [address] Hematocrit (Bld) [Volume fraction] 47.5 % Normal 36.0-48.0 [facility] Comment on above: Performed By: #### L [id number] #### [facility] ([facility]) [address] [place] [address] Hemoglobin (Bld) [Mass/Vol] 15.1 g/dL High 12.0-15.0 [facility] Comment on above: Performed By: #### L [id number] #### [facility] ([facility]) [address] [place] [address] MCH (RBC) [Entitic mass] 29.7 pg Normal 27.0-33.0 [facility] Comment on above: Performed By: #### L [id number] #### [facility] ([facility]) [address] [place] [address] MCV (RBC) [Entitic vol] 93.3 fL Normal 82.0-98.0 [facility] Comment on above: Performed By: #### L [id number] #### [facility] ([facility]) [address] [place] [address] PLATELETS (10*3/UL) IN BLOOD AUTOMATED COUNT 190 10*3/uL Normal 150-400 [facility] Comment on above: Performed By: #### L [id number] #### [facility] ([facility]) [address] [place] [address] RBC (Bld) [#/Vol] 5.09 10*6/uL High 3.80-5.00 [facility] Comment on above: Performed By: #### L [id number] #### [facility] ([facility]) [address] [place] [address] WBC (Bld) [#/Vol] 8.55 10*3/uL Normal 4.00-10.60 [facility] Comment on above: Performed By: #### L [id number] #### [facility] ([facility]) [address] [place] [address] CTA CHEST W AND/OR WO IV CON [...] reasonably achievable. Electronically signed: Karlos Gallardo. Normal [facility] MAGNESIUMon 08-08-2023 Magnesium [Mass/Vol] 1.8 mg/dL Low 1.9-2.7 [facility] Comment on above: Performed By: #### L [id number] #### [facility] ([facility]) [address] [place] [address] NURSNOTEon 08-08-2023 NURSNOTE Patient Name: Daniel Lynn [...] Pamela Babcock RN Rapid Response Team Nurse [phone] 08/08/2023 3:26 PM Normal [facility] PHOSPHORUSon 08-08-2023 Magnesium [Mass/Vol] 3.4 mg/dL Normal 2.5-5.0 [facility] Comment on above: Performed By: #### L [id number] ####[facility] ([facility])[address] [place] [address] POCT GLUCOSE METER UNSOLICIT ED RESULTSon 08-08-2023 Glucose [Mass/Vol] 331 mg/dL High 70-[address] [facility] Comment on above: Order Comment: Waive d Testing in the ED is performed under the ED CLIA certificate #[id number]. Result Comment: [email or web address] Performed By: #### L [id number] #### [facility] ([employer]) [address] [place] [address] Glucose [Mass/Vol] 249 mg/dL High 70-[address] [facility] Comment on above: Order Comment: Waive d Testing in the ED is performed under the ED CLIA certificate #[id number]. Result Comment: [email or web address] [email or web address] Performed By: #### L [id number] #### [facility] ([employer]) [address] [place] [address] Glucose [Mass/Vol] 277 mg/dL High 70-[address] [facility] Comment on above: Order Comment: Waive d Testing in the ED is performed under the ED CLIA certificate #[id number]. Result Comment: my [email or web address] Performed By: #### L [id number] #### [facility] ([facility]) [address] [place] [address] Glucose [Mass/Vol] 198 mg/dL High 70-[address] [facility] Comment on above: Order Comment: Waive d Testing in the ED is performed under the ED CLIA certificate #[id number]. Result Comment: [email or web address] Performed By: #### L [id number] #### [facility] ([facility]) [address] [place] [address] Glucose [Mass/Vol] 111 mg/dL High 70-[address] [facility] Comment on above: Order Comment: Waive d Testing in the ED is performed under the ED CLIA certificate #[id number]. Result Comment: [email or web address] Performed By: #### L [id number] #### [facility] ([facility]) [address] [place] [address] 30on 08-07-2023 30 The patient is Moder ately Stable [...] functionality and self care Outcome: Progressing Normal [facility] 30 Problem: Discharge Planning Goal: Discharge to [...] practices Implement preventative oral hygiene regimen Normal [facility] BASIC METABOLIC PANELon 11-2 Anion gap [Moles/Vol] 9 mmol/L Normal 7-20 [facility] Comment on above: Performed By: #### L [id number] #### [facility] ([facility]) [address] [place] [address] Calcium [Mass/Vol] 8.5 mg/dL Low 8.6-10.[address] [facility] Comment on above: Performed By: #### L [id number] #### [facility] ([facility]) [address] [place] [address] Chloride [Moles/Vol] 98 mmol/L Normal 98-107 [facility] Comment on above: Performed By: #### L [id number] #### [facility] ([facility]) [address] [place] [address] CO2 [Moles/Vol] 31 mmol/L Normal 21-31 [facility] Comment on above: Performed By: #### L [id number] #### [facility] ([facility]) [address] [place] [address] Creatinine [Mass/Vol] 0.59 mg/dL Low 0.60-1.20 [facility] Comment on above: Performed By: #### L [id number] #### [facility] ([facility]) [address] [place] [address] GLOMERULAR FILTRATION RATE ML/MIN/1.73 SQ M.PREDICTED 111.8 mL/min/1.73m*2 Normal >60.0 [facility] [facility] Comment on above: Result Comment: The [facility]???s estimated glomerular filtration rate (eGFR) will [...] individuals. Performed By: #### L [id number] #### [facility] ([facility]) [address] [place] [address] Glucose [Mass/Vol] 210 mg/dL High 70-[address] [facility] Comment on above: Performed By: #### L [id number] #### [facility] ([facility]) [address] [place] [place] [address] Potassium [Moles/Vol] 3.8 mmol/L Normal 3.5-5.1 [facility] Comment on above: Performed By: #### L [id number] #### [facility] ([facility]) [address] [place] [address] Sodium [Moles/Vol] 134 mmol/L Low 136-[address] [facility] Comment on above: Performed By: #### L [id number] #### [facility] ([facility]) [address] [facility] [place] [address] Urea nitrogen [Mass/Vol] 25 mg/dL Normal 7-25 [facility] Comment on above: Performed By: #### L [id number] #### [facility] ([facility]) [address] [place] [address] UREA NITROGEN/CREATININE (MASS RATIO) IN SER/PLAS 42.4 Normal [facility] Comment on above: Performed By: #### L [id number] #### [facility] ([facility]) [address] [place] [address] CBCon 08-07-2023 Erythrocyte distribution width (RBC) [Ratio] 13.0 % Normal 11.5-15.0 [facility] Comment on above: Performed By: #### L [id number] #### [facility] ([facility]) [address] [place] [address] ERYTHROCYTE MEAN CORPUSCULAR HEMOGLOBIN CONCENTRATION (G/DL) BY AUTOMATED 32.6 g/dL Normal 32.0-35.0 [facility] Comment on above: Performed By: #### L [id number] #### [facility] ([facility]) [address] [place] [address] Hematocrit (Bld) [Volume fraction] 47.3 % Normal 36.0-48.0 [facility] Comment on above: Performed By: #### L [id number] #### [facility] ([facility]) [address] [place] [address] Hemoglobin (Bld) [Mass/Vol] 15.4 g/dL High 12.0-15.0 [facility] Comment on above: Performed By: #### L [id number] #### [facility] [address] [place] [address] MCH (RBC) [Entitic mass] 30.1 pg Normal 27.0-33.0 [facility] Comment on above: Performed By: #### L [id number] #### [facility] ([facility]) [address] [place] [address] MCV (RBC) [Entitic vol] 92.6 fL Normal 82.0-98.0 [facility] Comment on above: Performed By: #### L [id number] #### [facility] ([facility]) [address] [place] [address] PLATELETS (10*3/UL) IN BLOOD AUTOMATED COUNT 194 10*3/uL Normal 150-400 [facility] Comment on above: Performed By: #### L [id number] #### [facility] ([facility]) [address] [place] [address] RBC (Bld) [#/Vol] 5.11 10*6/uL High 3.80-5.00 [facility] Comment on above: Performed By: #### L [id number] #### [facility] ([facility]) [address] [place] [address] WBC (Bld) [#/Vol] 9.05 10*3/uL Normal 4.00-10.60 [facility] Comment on above: Performed By: #### L [id number] #### [facility] ([facility]) [address] [place] [address] MAGNESIUMon 08-07-2023 Magnesium [Mass/Vol] 1.7 mg/dL Low 1.9-2.7 [facility] Comment on above: Performed By: #### L [id number] #### [facility] ([facility]) [address] [place] [address] NURSNOTEon 08-07-2023 NURSNOTE Report given to NEDRA dhillon in CVU. All questions answered at this time- patient belongings given from newswriter to RN. Normal [facility] PHOSPHORUSon 08-07-2023 Magnesium [Mass/Vol] 3.5 mg/dL Normal 2.5-5.0 [facility] Comment on above: Performed By: #### L [id number] #### [facility] ([facility]) [address] [place] [address] POCT GLUCOSE METER UNSOLICIT ED RESULTSon 08-07-2023 Glucose [Mass/Vol] 233 mg/dL High 70-[address] [facility] Comment on above: Order Comment: Waive d Testing in the ED is performed under the ED CLIA certificate #[id number]. Result Comment: [email or web address] Performed By: #### L [id number] #### [facility] ([facility]) [address] [place] [address] Glucose [Mass/Vol] 156 mg/dL High 70-[address] [facility] Comment on above: Order Comment: Waive d Testing in the ED is performed under the ED CLIA certificate #[id number]. Result Comment: [email or web address] Performed By: #### L [id number] #### [facility] ([facility]) [address] [place] [address] 30on 08-06-2023 30 Problem: Pain - Adul [...] dysrhythmias or at baseline Outcome: Progressing Normal [facility] BASIC METABOLIC PANELon 07-19 Anion gap [Moles/Vol] 9 mmol/L Normal 04-05 [facility] Comment on above: Performed By: #### L [id number] #### [facility] ([facility]) [address] [place] [address] Calcium [Mass/Vol] 8.4 mg/dL Low 8.6-10.[address] [facility] Comment on above: Performed By: #### L [id number] #### [facility] ([facility]) [address] [place] [address] Chloride [Moles/Vol] 100 mmol/L Normal 98-107 [facility] Comment on above: Performed By: #### L [id number] #### [facility] ([facility]) [address] [place] [address] CO2 [Moles/Vol] 30 mmol/L Normal 21-31 [facility] Comment on above: Performed By: #### L [id number] #### [facility] ([facility]) [address] [place] [address] Creatinine [Mass/Vol] 0.61 mg/dL Normal 0.60-1.20 [facility] Comment on above: Performed By: #### L [id number] #### [facility] ([facility]) [address] [place] [address] GLOMERULAR FILTRATION RATE ML/MIN/1.73 SQ M.PREDICTED 110.9 mL/min/1.73m*2 Normal >60.0 [facility] Comment on above: Result Comment: [facility]???s estimated glomerular filtration rate (eGFR) will [...] individuals. Performed By: #### L [id number] #### [facility] ([facility]) [address] [place] [address] Glucose [Mass/Vol] 180 mg/dL High 70-[address] [facility] Comment on above: Performed By: #### L [id number] #### [facility] ([facility]) [address] [place] [address] Potassium [Moles/Vol] 4.1 mmol/L Normal 3.5-5.1 [facility] Comment on above: Performed By: #### L [id number] #### [facility] ([facility]) [address] [place] [address] Sodium [Moles/Vol] 135 mmol/L Low 136-[address] [facility] Comment on above: Performed By: #### L [id number] #### [facility] ([facility]) [address] [place] [address] Urea nitrogen [Mass/Vol] 20 mg/dL Normal 7-25 [facility] Comment on above: Performed By: #### L [id number] #### [facility] [address] [place] [address] UREA NITROGEN/CREATININE (MASS RATIO) IN SER/PLAS 32.8 Normal [facility] Comment on above: Performed By: #### L [id number] #### [facility] [address] [place] [address] CBCon 08-06-2023 Erythrocyte distribution width (RBC) [Ratio] 12.9 % Normal 11.5-15.0 [facility] Comment on above: Performed By: #### L [id number] #### [facility] ([facility]) [address] [place] [address] ERYTHROCYTE MEAN CORPUSCULAR HEMOGLOBIN CONCENTRATION (G/DL) BY AUTOMATED 32.4 g/dL Normal 32.0-35.0 [facility] Comment on above: Performed By: #### L [id number] #### [facility] ([facility]) [address] [place] [address] Hematocrit (Bld) [Volume fraction] 48.5 % High 36.0-48.0 [facility] Comment on above: Performed By: #### L [id number] #### [facility] ([facility]) [address] [place] [address] Hemoglobin (Bld) [Mass/Vol] 15.7 g/dL High 12.0-15.0 [facility] Comment on above: Performed By: #### L [id number] #### [facility] ([facility]) [address] [place] [address] MCH (RBC) [Entitic mass] 30.3 pg Normal 27.0-33.0 [facility] Comment on above: Performed By: #### L [id number] #### [facility] ([facility]) [address] [place] [address] MCV (RBC) [Entitic vol] 93.4 fL Normal 82.0-98.0 [facility] Comment on above: Performed By: #### L [id number] #### [facility] ([facility]) [address] [place] [address] PLATELETS (10*3/UL) IN BLOOD AUTOMATED COUNT 159 10*3/uL Normal 150-400 [facility] Comment on above: Performed By: #### L [id number] #### [facility] ([facility]) [address] [place] [address] RBC (Bld) [#/Vol] 5.19 10*6/uL High 3.80-5.00 [facility] Comment on above: Performed By: #### L [id number] #### [facility] ([facility]) [address] [place] [address] WBC (Bld) [#/Vol] 8.36 10*3/uL Normal 4.00-10.60 [facility] Comment on above: Performed By: #### L [id number] #### [facility] ([facility]) [address] [place] [address] MAGNESIUMon 08-06-2023 Magnesium [Mass/Vol] 1.8 mg/dL Low 1.9-2.7 [facility] Comment on above: Performed By: #### L [id number] #### [facility] ([facility]) [address] [place] [address] MRI CARDIAC MORPHOLOGY AND F UNCTION W [...] hypertrophy . . Electronically signed: Cade Farley. [facility] PHOSPHORUSon 08-06-2023 Magnesium [Mass/Vol] 3.2 mg/dL Normal 2.5-5.0 [facility] Comment on above: Performed By: #### L [id number] #### [facility] ([facility]) [address] [place] [address] POCT GLUCOSE METER UNSOLICIT ED RESULTSon 08-06-2023 Glucose [Mass/Vol] 305 mg/dL High 70-[address] [facility] Comment on above: Order Comment: Waive d Testing in the ED is performed under the ED CLIA certificate #[id number]. Result Comment: [email or web address] Performed By: #### L [id number] #### [facility] ([facility]) [address] [place] [address] Glucose [Mass/Vol] 240 mg/dL High 70-[address] [facility] Comment on above: Order Comment: Waive d Testing in the ED is performed under the ED CLIA certificate #[id number]. Result Comment: [email or web address] Performed By: #### L [id number] ####[facility] ([facility])[address] [place] [address] Glucose [Mass/Vol] 240 mg/dL High 70-[address] [facility] Comment on above: Order Comment: Waive d Testing in the ED is performed under the ED CLIA certificate #[id number]. Result Comment: [email or web address] Performed By: #### L [id number] #### [facility] ([facility]) [address] [place] [address] Glucose [Mass/Vol] 252 mg/dL High 70-[address] [facility] Comment on above: Order Comment: Waive d Testing in the ED is performed under the ED CLIA certificate #[id number]. Result Comment: [email or web address] Performed By: #### L [id number] #### [facility] ([facility]) [address] [place] [address] 30on 08-05-2023 30 The patient is Moder [...] Goal: Maintains hematologic stability Outcome: Progressing Normal [facility] 30 Problem: Pain - Adul t [...] goals for the shift include VSS Normal [facility] BASIC METABOLIC PANELon 11-1 Anion gap [Moles/Vol] 7 mmol/L Normal 7-20 [facility] Comment on above: Performed By: #### L [id number] #### [facility] ([facility]) [address] [place] [address] Calcium [Mass/Vol] 8.4 mg/dL Low 8.6-10.[address] [facility] Comment on above: Performed By: #### L [id number] #### [facility] ([facility]) [address] [place] [address] Chloride [Moles/Vol] 99 mmol/L Normal 98-107 [facility] Comment on above: Performed By: #### L [id number] #### [facility] [address] [place] [address] CO2 [Moles/Vol] 33 mmol/L High 21-31 [facility] Comment on above: Performed By: #### L [id number] #### [facility] ([facility]) [address] [place] [address] Creatinine [Mass/Vol] 0.75 mg/dL Normal 0.60-1.20 [facility] Comment on above: Performed By: #### L [id number] #### [facility] ([facility]) [address] [place] [address] GLOMERULAR FILTRATION RATE ML/MIN/1.73 SQ M.PREDICTED 98.8 mL/min/1.73m*2 Normal >60.0 [facility] Comment on above: Result Comment: [facility]???s estimated glomerular filtration rate (eGFR) will [...] individuals. Performed By: #### L [id number] #### [facility] ([facility]) [address] [place] [address] Glucose [Mass/Vol] 206 mg/dL High 70-[address] [facility] Comment on above: Performed By: #### L [id number] #### [facility] [address] [place] [address] Potassium [Moles/Vol] 3.7 mmol/L Normal 3.5-5.1 [facility] Comment on above: Performed By: #### L [id number] #### [facility] [address] [place] [address] Sodium [Moles/Vol] 135 mmol/L Low 136-145 [facility] Comment on above: Performed By: #### L [id number] #### [facility] ([facility]) [address] [place] [address] Urea nitrogen [Mass/Vol] 26 mg/dL High 7-25 [facility] Comment on above: Performed By: #### L [id number] #### [facility] [address] [place] [address] UREA NITROGEN/CREATININE (MASS RATIO) IN SER/PLAS 34.7 Normal [facility] Comment on above: Performed By: #### L [id number] #### [facility] [address] [place] [address] CBCon 08-05-2023 Erythrocyte distribution width (RBC) [Ratio] 13.0 % Normal 11.5-15.0 [facility] Comment on above: Performed By: #### L [id number] ####[facility] ([facility] [place] [address] ERYTHROCYTE MEAN CORPUSCULAR HEMOGLOBIN CONCENTRATION (G/DL) BY AUTOMATED 32.7 g/dL Normal 32.0-35.0 [facility] Comment on above: Performed By: #### L [id number] ####[facility] ([facility])[address] [place] [address] Hematocrit (Bld) [Volume fraction] 49.5 % High 36.0-48.0 [facility] Comment on above: Performed By: #### L [id number] ####[facility] ([facility])[address] [place] [address] Hemoglobin (Bld) [Mass/Vol] 16.2 g/dL High 12.0-15.0 [facility] Comment on above: Performed By: #### L [id number] ####[facility] ([facility])[address] [place] [address] MCH (RBC) [Entitic mass] 30.6 pg Normal 27.0-33.0 [facility] Comment on above: Performed By: #### L [id number] ####[facility] ([facility])[address] [place] [address] MCV (RBC) [Entitic vol] 93.4 fL Normal 82.0-98.0 [facility] Comment on above: Performed By: #### L [id number] ####[facility] ([facility])[address] [place] [address] PLATELETS (10*3/UL) IN BLOOD AUTOMATED COUNT 190 10*3/uL Normal 150-400 [facility] Comment on above: Performed By: #### L [id number] ####[facility] ([facility])[address] [place] [address] RBC (Bld) [#/Vol] 5.30 10*6/uL High 3.80-5.00 [facility] Comment on above: Performed By: #### L [id number] ####[facility] ([facility])[address] [place] [address] WBC (Bld) [#/Vol] 9.57 10*3/uL Normal 4.00-10.60 [facility] Comment on above: Performed By: #### L [id number] ####[facility] ([facility])[address] [place] [address] MAGNESIUMon 08-05-2023 Magnesium [Mass/Vol] 1.9 mg/dL Normal 1.9-2.7 [facility] Comment on above: Performed By: #### L [id number] ####[facility] ([facility])[address] [place] [address] PHOSPHORUSon 08-05-2023 Magnesium [Mass/Vol] 3.1 mg/dL Normal 2.5-5.0 [facility] Comment on above: Performed By: #### L [id number] #### [facility] ([facility]) [address] [place] [address] POCT GLUCOSE METER UNSOLICIT ED RESULTSon 08-05-2023 Glucose [Mass/Vol] 272 mg/dL High 70-[address] [facility] Comment on above: Order Comment: Waive d Testing in the ED is performed under the ED CLIA certificate #[id number]. Result Comment: [email or web address] Performed By: #### L [id number] #### [facility] ([facility]) [address] [place] [address] Glucose [Mass/Vol] 203 mg/dL High 70-[address] [facility] Comment on above: Order Comment: Waive d Testing in the ED is performed under the ED CLIA certificate #[id number]. Result Comment: ana ry Performed By: #### L [id number] ####[facility] ([facility])[address] [place] [address] Glucose [Mass/Vol] 227 mg/dL High 70-[address] [facility] Comment on above: Order Comment: Waive d Testing in the ED is performed under the ED CLIA certificate #[id number]. Result Comment: ana ry Performed By: #### L [id number] #### [facility] ([facility]) [address] [place] [address] Glucose [Mass/Vol] 200 mg/dL High 70-[address] [facility] Comment on above: Order Comment: Waive d Testing in the ED is performed under the ED CLIA certificate #[id number]. Result Comment: ana ry Performed By: #### L [id number] #### [facility] ([facility]) [address] [place] [address] 30on 08-04-2023 30 The patient is Moder [...] Goal: Maintains hematologic stability Outcome: Progressing Normal [facility] BASIC METABOLIC PANELon 11- Anion gap [Moles/Vol] 7 mmol/L Normal 7-20 [facility] Comment on above: Performed By: #### L [id number] ####[facility] ([facility])[address] [place] [address] Calcium [Mass/Vol] 8.4 mg/dL Low 8.6-10.[address] [facility] Comment on above: Performed By: #### L [id number] ####[facility] ([facility])[address] [place] [address] Chloride [Moles/Vol] 99 mmol/L Normal 98-107 [facility] Comment on above: Performed By: #### L [id number] ####[facility] ([facility])[address] [place] [address] CO2 [Moles/Vol] 33 mmol/L High 21-31 [facility] Comment on above: Performed By: #### L [id number] ####[facility] ([facility])[address] [place] [address] Creatinine [Mass/Vol] 0.82 mg/dL Normal 0.60-1.20 [facility] Comment on above: Performed By: #### L [id number] ####[facility] ([facility])[address] [place] [address] GLOMERULAR FILTRATION RATE ML/MIN/1.73 SQ M.PREDICTED 88.7 mL/min/1.73m*2 Normal >60.0 [facility] Comment on above: Result Comment: [facility]???s estimated glomerular filtration rate (eGFR) will [...] of individuals. Performed By: #### L [id number] ####[facility] ([facility])[address] [place] [address] Glucose [Mass/Vol] 207 mg/dL High 70-[address] [facility] Comment on above: Performed By: #### L [id number] ####[facility] ([facility])[address] [place] [address] Potassium [Moles/Vol] 3.8 mmol/L Normal 3.5-5.1 [facility] Comment on above: Performed By: #### L [id number] ####[facility] ([facility])[address] [place] [address] Sodium [Moles/Vol] 135 mmol/L Low 136-[address] [facility] Comment on above: Performed By: #### L [id number] ####[facility] ([facility])[address] [place] [address] Urea nitrogen [Mass/Vol] 28 mg/dL High 7-25 [facility] Comment on above: Performed By: #### L [id number] ####[facility] [place] [address] UREA NITROGEN/CREATININE (MASS RATIO) IN SER/PLAS 34.1 Normal [facility] Comment on above: Performed By: #### L [id number] ####[facility] [place] [address] CBCon 08-04-2023 Erythrocyte distribution width (RBC) [Ratio] 13.0 % Normal 11.5-15.0 [facility] Comment on above: Performed By: #### L [id number] ####[facility] ([facility])[address] [place] [address] ERYTHROCYTE MEAN CORPUSCULAR HEMOGLOBIN CONCENTRATION (G/DL) BY AUTOMATED 32.5 g/dL Normal 32.0-35.0 [facility] Comment on above: Performed By: #### L [id number] ####[facility] [place] [address] Hematocrit (Bld) [Volume fraction] 49.9 % High 36.0-48.0 [facility] Comment on above: Performed By: #### L [id number] ####[facility] [place] [address] Hemoglobin (Bld) [Mass/Vol] 16.2 g/dL High 12.0-15.0 [facility] Comment on above: Performed By: #### L [id number] ####[facility] [place] [address] MCH (RBC) [Entitic mass] 30.5 pg Normal 27.0-33.0 [facility] Comment on above: Performed By: #### L [id number] ####[facility] ([facility])[address] [place] [address] MCV (RBC) [Entitic vol] 93.8 fL Normal 82.0-98.0 [facility] Comment on above: Performed By: #### L [id number] ####[facility] ([facility])[address] [address] PLATELETS (10*3/UL) IN BLOOD AUTOMATED COUNT 197 10*3/uL Normal 150-400 [facility] Comment on above: Performed By: #### L [id number] ####[facility] ([facility])[address] [facility] [address] RBC (Bld) [#/Vol] 5.32 10*6/uL High 3.80-5.00 [facility] Comment on above: Performed By: #### L [id number] ####[facility] ([facility])[address] [place] [address] WBC (Bld) [#/Vol] 10.19 10*3/uL Normal 4.00-10.60 [facility] Comment on above: Performed By: #### L [id number] ####[facility] ([facility])[address] [place] [address] CONSULTon 08-04-2023 CONSULT Inpatient consult to Cardiothoracic Surgery Consult performed by: Gian Cardona NP Consult ordered by: Lissette Delgado MD Reason for consult: ASD History Of Present Illness Daniel Lynn is a 47 y.o. female with PMH of Asthma and Obesity who was initially evaluated in [place] on 07/25 with with 4 days of [...] patient and they recommended transfer to [facility] for right heart catherization. She arrived to [facility] 08/01 where she was admitted to [...] (chronic obstructive pulmonary disease) ([facility]), Diabetes mellitus ([facility]), Hypertension, MTHFR gene mutation, and Obesity. Surgical [...] Mental Status (more content not included)... Normal [facility] MAGNESIUMon 08-04-2023 Magnesium [Mass/Vol] 1.9 mg/dL Normal 1.9-2.7 [facility] Comment on above: Performed By: #### L [id number] #### [facility] ([facility]) [address] [place] [id number] PHOSPHORUSon 08-04-2023 Magnesium [Mass/Vol] 2.8 mg/dL Normal 2.5-5.0 [facility] Comment on above: Performed By: #### L [id number] #### [facility] ([facility]) [address] [place] [address] POCT GLUCOSE METER UNSOLICIT ED RESULTSon 08-04-2023 Glucose [Mass/Vol] 310 mg/dL High 70-[address] [facility] Comment on above: Order Comment: Waive d Testing in the ED is performed under the ED CLIA certificate #[id number]. Result Comment: nfre cassie Performed By: #### L [id number] #### [facility] ([facility]) [address] [place] [address] Glucose [Mass/Vol] 248 mg/dL High 70-[address] [facility] Comment on above: Order Comment: Waive d Testing in the ED is performed under the ED CLIA certificate #[id number]. Result Comment: [email or web address] Performed By: #### L [id number] #### [facility] ([facility]) [address] [place] [address] Glucose [Mass/Vol] 212 mg/dL High 70-[address] [facility] Comment on above: Order Comment: Waive d Testing in the ED is performed under the ED CLIA certificate #[id number]. Result Comment: [email or web address] Performed By: #### L [id number] #### [facility] ([facility]) [address] [place] [address] Glucose [Mass/Vol] 185 mg/dL High 70-[address] [facility] Comment on above: Order Comment: Waive d Testing in the ED is performed under the ED CLIA certificate #[id number]. Result Comment: [email or web address] Performed By: #### L [id number] ####[facility] ([facility])[address] [place] [address] 30on 08-03-2023 30 The patient is Moder ately Stable [...] Goal: Maintains hematologic stability Outcome: Progressing Normal [facility] BASIC METABOLIC PANELon 11-1 Anion gap [Moles/Vol] 10 mmol/L Normal 7-20 [facility] Comment on above: Performed By: #### L [id number] #### [facility] ([facility]) [address] [place] [address] Calcium [Mass/Vol] 8.7 mg/dL Normal 8.6-10.[address] [facility] Comment on above: Performed By: #### L [id number] #### [facility] ([facility] [facility]) [address] [place] [address] Chloride [Moles/Vol] 95 mmol/L Low 98-107 [facility] Comment on above: Performed By: #### L [id number] #### [facility] ([employer]) [address] [place] [address] CO2 [Moles/Vol] 32 mmol/L High 21-31 [facility] Comment on above: Performed By: #### L [id number] #### [facility] ([facility]) [address] [place] [address] Creatinine [Mass/Vol] 0.67 mg/dL Normal 0.60-1.20 [facility] Comment on above: Performed By: #### L [id number] #### [facility] ([facility]) [address] [place] [address] GLOMERULAR FILTRATION RATE ML/MIN/1.73 SQ M.PREDICTED 108.4 mL/min/1.73m*2 Normal >60.0 [facility] Comment on above: Result Comment: The [facility]???s estimated glomerular filtration rate (eGFR) will [...] group of individuals. Performed By: #### L [id number] #### [facility] ([facility]) [address] [place] [address] Glucose [Mass/Vol] 277 mg/dL High 70-[address] [facility] Comment on above: Performed By: #### L [id number] #### [facility] ([facility]) [address] [place] [address] Potassium [Moles/Vol] 3.6 mmol/L Normal 3.5-5.1 [facility] Comment on above: Performed By: #### L [id number] #### [facility] ([facility]) [address] [place] [address] Sodium [Moles/Vol] 133 mmol/L Low 136-[address] [facility] Comment on above: Performed By: #### L [id number] #### [facility] ([facility]) [address] [place] [address] Urea nitrogen [Mass/Vol] 32 mg/dL High 7-25 [facility] Comment on above: Performed By: #### L [id number] #### [facility] ([facility] [address] [place] [address] UREA NITROGEN/CREATININE (MASS RATIO) IN SER/PLAS 47.8 Normal [facility] Comment on above: Performed By: #### L [id number] #### [facility] ([facility]) [address] [place] [address] CBCon 08-03-2023 Erythrocyte distribution width (RBC) [Ratio] 13.0 % Normal 11.5-15.0 [facility] Comment on above: Performed By: #### L [id number] #### [facility] ([facility]) [address] [place] [address] ERYTHROCYTE MEAN CORPUSCULAR HEMOGLOBIN CONCENTRATION (G/DL) BY AUTOMATED 32.7 g/dL Normal 32.0-35.0 [facility] Comment on above: Performed By: #### L [id number] #### [facility] ([facility]) [address] [place] [address] Hematocrit (Bld) [Volume fraction] 54.8 % High 36.0-48.0 [facility] Comment on above: Performed By: #### L [id number] #### [facility] ([facility]) [address] [place] [address] Hemoglobin (Bld) [Mass/Vol] 17.9 g/dL High 12.0-15.0 [facility] Comment on above: Performed By: #### L [id number] #### [facility] ([facility] [address] [place] [address] MCH (RBC) [Entitic mass] 30.5 pg Normal 27.0-33.0 [facility] Comment on above: Performed By: #### L [id number] #### [facility] ([facility]) [address] [place] [address] MCV (RBC) [Entitic vol] 93.5 fL Normal 82.0-98.0 [facility] Comment on above: Performed By: #### L [id number] #### [facility] ([facility]) [address] [place] [address] PLATELETS (10*3/UL) IN BLOOD AUTOMATED COUNT 208 10*3/uL Normal 150-400 [facility] Comment on above: Performed By: #### L [id number] #### [facility] ([facility]) [address] [place] [address] RBC (Bld) [#/Vol] 5.86 10*6/uL High 3.80-5.00 [facility] Comment on above: Performed By: #### L [id number] #### [facility] ([facility]) [address] [place] [address] WBC (Bld) [#/Vol] 12.73 10*3/uL High 4.00-10.60 [facility] Comment on above: Performed By: #### L [id number] #### [facility] ([facility]) [address] [place] [address] MAGNESIUMon 08-03-2023 Magnesium [Mass/Vol] 1.9 mg/dL Normal 1.9-2.7 [facility] Comment on above: Performed By: #### L [id number] #### [facility] ([facility]) [address] [place] [address] PHOSPHORUSon 08-03-2023 Magnesium [Mass/Vol] 3.3 mg/dL Normal 2.5-5.0 [facility] Comment on above: Performed By: #### L [id number] #### [facility] ([facility]) [address] [place] [address] POCT GLUCOSE METER UNSOLICIT ED RESULTSon 08-03-2023 Glucose [Mass/Vol] 286 mg/dL High 70-[address] [facility] Comment on above: Order Comment: Waive d Testing in the ED is performed under the ED CLIA certificate #[id number]. Result Comment: nfre cassie Performed By: #### L [id number] #### [facility] ([facility]) [address] [place] [address] Glucose [Mass/Vol] 214 mg/dL High 70-[address] [facility] Comment on above: Order Comment: Waive d Testing in the ED is performed under the ED CLIA certificate #[id number]. Result Comment: [email or web address] [email or web address] Performed By: #### L [id number] #### [facility] ([facility]) [address] [place] [address] Glucose [Mass/Vol] 239 mg/dL High 70-[address] [facility] Comment on above: Order Comment: Waive d Testing in the ED is performed under the ED CLIA certificate #[id number]. Result Comment: [email or web address] iga Performed By: #### L [id number] #### [facility] ([facility]) [address] [place] [address] Glucose [Mass/Vol] 234 mg/dL High 70-[address] [facility] Comment on above: Order Comment: Waive d Testing in the ED is performed under the ED CLIA certificate #[id number]. Result Comment: [email or web address] iga Performed By: #### L [id number] #### [facility] ([facility]) [address] [place] [address] TSH3 REFLEX TO FT4on 023 THYROTROPIN (MIU/L) IN SER/PLAS BY DETECTION LIMIT <= 0.05 MIU/L 0.56 mIU/L Normal 0.34-5.60 [facility] Comment on above: Performed By: #### L [id number] #### [facility] ([facility]) [address] [place] [address] ANAon 08-02-2023 PHANI TITER <1:40 Normal <=1:40 [facility] Comment on above: Result Comment: Test performed using SERGE IFA PHANI Hep-2 Test, a pre-standardized assay designed for the qualitative and semi-quantitative detection of antinuclear antibodies. Performed By: #### L [id number] #### [facility] ([facility]) [address] [place] [address] ANTI-CENTROMERE ANTIBODYon 10-02-2022 ANTI-CENTROMERE ANTIBODY Negative Normal Negative [facility] Comment on above: Performed By: #### L [id number] #### [facility] ([facility]) [address] [place] [address] ANTI-DNASE B ANTIBODYon 07-18 DNASE B ANTIBODY <86 Normal <=259 [facility] Comment on above: Result Comment: [...] of a recent Streptococcus infection. Performed By: [email or web address] [address] [place] [id number] Marketing Researcher: Saturnino Rai MD, PhD CLIA Number: [id number] Performed By: #### L [id number] #### [facility] ([facility]) [address] [place] [address] ANTI-RITU 1 ANTIBODY, IGGon ANTI RITU-1 IGG 1 AU/mL Normal 0-40 [facility] Comment on above: Result Comment: INTE RPRETIVE INFORMATION: Ritu-1 Antibody, IgG 29 AU/mL or less.........Negative 30-40 AU/mL..............Equivocal 41 AU/mL or greater......Positive Presence of Ritu-1 (antihistidyl transfer RNA [t-RNA] synthetase) antibody is associated with polymyositis and may also be seen in patients with dermatomyositis. Ritu-1 antibody is associated with pulmonary involvement (interstitial lung disease), Raynaud phenomenon, arthritis, and mechanical engineering teacher's hands (implicated in antisynthetase syndrome). Performed By: [email or web address] [address] [place] [address] Marketing Researcher: Saturnino Rai MD, PhD CLIA Number: [id number] Performed By: #### L [id number] #### [facility] ([facility]) [address] [place] [address] ARTERIAL BLOOD GAS WITH IONI ZED CALCIUMon 08-02-2023 Base excess Calc (Bld) [Moles/Vol] 13.8 mmol/L High -2.0-3.0 [facility] Comment on above: Order Comment: 04/26 Performed By: #### L [id number] #### [facility] ([facility]) [address] [place] [address] CALCIUM IONIZED (MMOL/L) IN BLOOD 1.08 mmol/L Low 1.15-1.33 [facility] Comment on above: Order Comment: 04/26 Performed By: #### L [id number] #### [facility] ([facility]) [address] [place] [address] CO2 (Bld) [Partial pressure] 60 mm[Hg] Critically high 35-48 [facility] Comment on above: Order Comment: 04/26 Performed By: #### L [id number] #### [facility] ([facility]) [address] [place] [address] FIO2 90 % Normal [facility] Comment on above: Order Comment: 04/26 Performed By: #### L [id number] #### [facility] ([facility]) [address] [place] [address] HCO3 (Bld) [Moles/Vol] 40.8 mmol/L High 21.0-28.0 [facility] Comment on above: Order Comment: 04/26 Performed By: #### L [id number] #### [facility] ([facility]) [address] [place] [address] Oxygen (Bld) [Partial pressure] 89 mm[Hg] Normal 83-100 [facility] Comment on above: Order Comment: 04/26 Performed By: #### L [id number] #### [facility] ([facility]) [address] [place] [address] OXYGEN SATURATION (%) IN ARTERIAL BLOOD 97.8 % Normal 94.0-98.0 [facility] Comment on above: Order Comment: 04/26 Performed By: #### L [id number] #### [facility] ([facility]) [address] [place] [address] pH (Bld) 7.44 [pH] Normal 7.35-7.45 [facility] Comment on above: Order Comment: 04/26 Performed By: #### L [id number] #### [facility] ([facility]) [address] [place] [address] SOURCE OF OXYGEN Bi-PAP Normal [facility] Comment on above: Order Comment: 04/26 Performed By: #### L [id number] #### [facility] ([facility]) [address] [place] [address] B-TYPE NATRIURETIC PEPTIDEon 08-02-2023 Natriuretic peptide B (Bld) [Mass/Vol] 37 pg/mL Normal 0-100 [facility] Comment on above: Performed By: #### L [id number] #### [facility] ([facility]) [address] [place] [address] BASIC METABOLIC PANELon 07-18 Anion gap [Moles/Vol] 10 mmol/L Normal 7-20 [facility] Comment on above: Performed By: #### L [id number] #### [facility] ([facility]) [address] [place] [address] Calcium [Mass/Vol] 8.8 mg/dL Normal 8.6-10.[address] [facility] Comment on above: Performed By: #### L [id number] #### [facility] ([facility]) [address] [place] [address] Chloride [Moles/Vol] 91 mmol/L Low 98-107 [facility] Comment on above: Performed By: #### L [id number] #### [facility] ([facility]) [address] [place] [address] CO2 [Moles/Vol] 39 mmol/L High 21-31 [facility] Comment on above: Performed By: #### L [id number] #### [facility] ([facility]) [address] [place] [address] Creatinine [Mass/Vol] 0.70 mg/dL Normal 0.60-1.20 [facility] Comment on above: Performed By: #### L [id number] #### [facility] ([facility]) [address] [place] [address] GLOMERULAR FILTRATION RATE ML/MIN/1.73 SQ M.PREDICTED 107.3 mL/min/1.73m*2 Normal >60.0 [facility] Comment on above: Result Comment: The [facility]???s estimated glomerular filtration rate (eGFR) will [...] individuals. Performed By: #### L [id number] #### [facility] ([facility]) [address] [place] [address] Glucose [Mass/Vol] 231 mg/dL High 70-[address] [facility] Comment on above: Performed By: #### L [id number] #### [facility] ([facility]) [address] [facility] [place] [address] Potassium [Moles/Vol] 3.7 mmol/L Normal 3.5-5.1 [facility] Comment on above: Performed By: #### L [id number] #### [facility] ([facility]) [address] [place] [address] Sodium [Moles/Vol] 136 mmol/L Normal 136-[address] [facility] Comment on above: Performed By: #### L [id number] #### [facility] ([facility] [address] [place] [address] Urea nitrogen [Mass/Vol] 29 mg/dL High 7-25 [facility] Comment on above: Performed By: #### L [id number] #### [facility] ([facility]) [address] [place] [address] UREA NITROGEN/CREATININE (MASS RATIO) IN SER/PLAS 41.4 Normal [facility] Comment on above: Performed By: #### L [id number] #### [facility] ([facility]) [address] [place] [address] CBCon 08-02-2023 Erythrocyte distribution width (RBC) [Ratio] 13.2 % Normal 11.5-15.0 [facility] Comment on above: Performed By: #### L [id number] #### [facility] ([facility]) [address] [place] [address] ERYTHROCYTE MEAN CORPUSCULAR HEMOGLOBIN CONCENTRATION (G/DL) BY AUTOMATED 32.4 g/dL Normal 32.0-35.0 [facility] Comment on above: Performed By: #### L [id number] #### [facility] ([facility]) [address] [place] [address] Hematocrit (Bld) [Volume fraction] 56.2 % High 36.0-48.0 [facility] Comment on above: Performed By: #### L [id number] #### [facility] ([facility]) [address] [place] [address] Hemoglobin (Bld) [Mass/Vol] 18.2 g/dL High 12.0-15.0 [facility] Comment on above: Performed By: #### L [id number] #### [facility] ([facility]) [address] [place] [address] MCH (RBC) [Entitic mass] 30.6 pg Normal 27.0-33.0 [facility] Comment on above: Performed By: #### L [id number] #### [facility] ([facility]) [address] [place] [address] MCV (RBC) [Entitic vol] 94.5 fL Normal 82.0-98.0 [facility] Comment on above: Performed By: #### L [id number] #### [facility] ([facility]) [address] [place] [address] PLATELETS (10*3/UL) IN BLOOD AUTOMATED COUNT 237 10*3/uL Normal 150-400 [facility] Comment on above: Performed By: #### L [id number] #### [facility] ([facility]) [address] [place] [address] RBC (Bld) [#/Vol] 5.95 10*6/uL High 3.80-5.00 [facility] Comment on above: Performed By: #### L [id number] #### [facility] ([facility]) [address] [place] [address] WBC (Bld) [#/Vol] 12.17 10*3/uL High 4.00-10.60 [facility] Comment on above: Performed By: #### L [id number] #### [facility] ([facility]) [address] [place] [address] CT CHEST HIGH RESOLUTION WO CONTRASTon 08-02-2023 [...] as reasonably achievable. Electronically signed: Lonnie Tolentino. [facility] CTA HEART STRUCTURE MORPHOLO GY W IV [...] the actual shunt. No pericardial effusion Large [id number] images obtained but there is no evidence [...] with atelectasis Electronically signed: Cade Farley. Normal [facility] HPon 08-02-2023 HP H&P reviewed. The daniel richards was examined and there are no changes to the H&P. Normal [facility] LEGIONELLA ANTIGEN, URINEon 08-02-2023 LEGIONELLA AG, UR Negative Normal NEG [facility] Comment on above: Result Comment: L. p neumophila serogroup 1 antigen not detected. A negative result does not exclude infection with Leginella pnemophila serogroup 1 nor does it rule out other microbial-caused respiratory infections of disease caused by other serogroups of Legionella pneumophila. Test Performed by [facility] [employer] [facility] [address] [place] [address] - Released 08/02/2023 19:58 Performed By: #### L [id number] #### [facility] ([facility]AKER) [address] [place] [address] MAGNESIUMon 08-02-2023 Magnesium [Mass/Vol] 2.0 mg/dL Normal 1.9-2.7 [facility] Comment on above: Performed By: #### L [id number] #### [facility] ([facility]) [address] [place] [address] MRSA/MSSA DNA NASALon 11-16- 2023 MRSA DNA Negative Normal Negative [facility] Comment on above: Order Comment: Testi [...] colonization. Performed By: #### L [id number] #### [facility] ([facility]) [address] [place] [address] MSSA DNA Negative Normal Negative [facility] Comment on above: Order Comment: Testi [...] colonization. Performed By: #### L [id number] #### [facility] ([facility]) [address] [place] [address] NM LUNG PERFUSION PARTICULAT Cruzito 08-02-2023 NM [...] pulmonary thromboembolism. Electronically signed: Lonnie Tolentino. Normal [facility] PHOSPHORUSon 08-02-2023 Magnesium [Mass/Vol] 4.5 mg/dL Normal 2.5-5.0 [facility] Comment on above: Performed By: #### L [id number] #### [facility] ([facility]) [address] [place] [address] POCT GLUCOSE METER UNSOLICIT ED RESULTSon 08-02-2023 Glucose [Mass/Vol] 337 mg/dL High 70-[address] [facility] Comment on above: Order Comment: Waive d Testing in the ED is performed under the ED CLIA certificate #[id number]. Result Comment: ebol tz Performed By: #### L [id number] #### [facility] ([facility]) [address] [place] [address] Glucose [Mass/Vol] 164 mg/dL High 70-[address] [facility] Comment on above: Order Comment: Waive d Testing in the ED is performed under the ED CLIA certificate #[id number]. Result Comment: lhag iga Performed By: #### L [id number] #### [facility] ([facility] [address] [place] [address] Glucose [Mass/Vol] 218 mg/dL High 70-[address] [facility] Comment on above: Order Comment: Waive d Testing in the ED is performed under the ED CLIA certificate #[id number]. Result Comment: ebol tz Performed By: #### L [id number] #### [facility] ([facility]) [address] [place] [address] PROCALCITONIN TESTon 023 PROCALCITONIN IN BLOOD 0.04 ng/mL Normal 0.00-0.10 [facility] Comment on above: Result Comment: Susp [...] and initial PCT<0.5ng/mL Performed By: #### L [id number] ####[facility] (BEAKER)[address] [place] [address] RHEUMATOID FACTORon 08-02-20 Rheumatoid factor Qn [IU]/mL Normal 0-20 [facility] Comment on above: Performed By: #### L [id number] #### [facility] ([facility]) [address] [place] [address] RNA POLYMERASE III ANTIBODY IGGon 08-02-2023 RNA POLYMERASE III ANTIBODY, IGG 11 Units Normal 0-19 [facility] Comment on above: Result Comment: INTE [...] antibodies associated with SSc, including centromere, Scl-70, U3-PHYSICIST SOLID EARTH, PM/Scl, or Th/To. Performed By: [email or web address] [address] [place] [address] Marketing Researcher: Saturnino Rai MD, PhD CLIA Number: [id number] Performed By: #### L [id number] ####[facility] ([facility])[address] [place] [address] SJOGRENS SYNDROME ANTIBODIES A AND Bon 08-02-2023 IVAN TO SSA (RO) ANTIBODY Negative Normal Negative [facility] Comment on above: Performed By: #### L [id number] #### [facility] ([facility]) [address] [place] [address] IVAN TO SSB ([place]) ANTIBODY Negative Normal Negative [facility] Comment on above: Performed By: #### L [id number] #### [facility] ([facility]) [address] [place] [address] STREP PNEUMONIAE ANTIGEN, UR INEon 08-02-2023 STREPTOCOCCUS PNEUMONIAE AG PRESENCE IN URINE Negative Normal Negative [facility] Comment on above: Performed By: #### L [id number] #### [facility] ([facility]) [address] [place] [address] TROPONIN Ion 08-02-2023 Troponin I.cardiac [Mass/Vol] 0.03 ng/mL Normal 0.00-0.04 [facility] Comment on above: Performed By: #### L [id number] ####[facility] ([facility])[address] [place] [address] 30on 08-01-2023 30 The patient is Moder [...] ensuring proper positioning, support, and education. Normal [facility] APTTon 08-01-2023 ACTIVATED PARTIAL THROMBOPLASTIN TIME IN PPP BY COAGULATION ASSAY 24.1 Seconds Low 25.0-35.0 [facility] Comment on above: Result Comment: Clin ical significance of the APTT is questionable in the presence of heparin. Performed By: #### L [id number] #### [facility] ([facility]) [address] [place] [address] ARTERIAL BLOOD GAS WITH CO-O XIMETRYon 08-01-2023 Base excess Calc (Bld) [Moles/Vol] 20.9 mmol/L High -2.0-3.0 [facility] Comment on above: Order Comment: bipap Performed By: #### L [id number] #### [facility] ([facility]) [address] [place] [address] CARBOXYHEMOGLOBIN/H EMOGLOBIN TOTAL % IN BLOOD 1.5 % Normal 0.0-3.0 [facility] Comment on above: Order Comment: bipap Performed By: #### L [id number] #### [facility] ([facility]) [address] [place] [address] CO2 (Bld) [Partial pressure] 58 mm[Hg] Critically high 35-48 [facility] Comment on above: Order Comment: bipap Performed By: #### L [id number] #### [facility] LAB (BEAKER) [address] [place] [address] DEOXYGENATED HEMOGLOBIN IN BLOOD 5.4 % High 1-5 [facility] Comment on above: Order Comment: bipap Performed By: #### L [id number] #### [facility] (BEAKER) [address] [place] [address] FIO2 40 % Normal [facility] Comment on above: Order Comment: bipap Performed By: #### L [id number] #### [facility] (BEAKER) [address] [place] [address] HCO3 (Bld) [Moles/Vol] 48.5 mmol/L High 21.0-28.0 [facility] Comment on above: Order Comment: bipap Performed By: #### L [id number] #### [facility] (BEAKER) [address] [place] [address] Hemoglobin (Bld) [Mass/Vol] 18.3 g/dL Critically high 11.7-17.4 [facility] Comment on above: Order Comment: bipap Performed By: #### L [id number] #### [facility] (BEAKER) [address] [place] [address] METHEMOGLOBIN/100 IN BLOOD 0.8 % Normal 0.0-1.5 [facility] Comment on above: Order Comment: bipap Performed By: #### L [id number] #### [facility] (BEAKER) [address] [place] [address] Oxygen (Bld) [Partial pressure] 66 mm[Hg] Low 83-100 [facility] Comment on above: Order Comment: bipap Performed By: #### L [id number] #### [facility] (BEAKER) [address] [place] [address] OXYGEN SATURATION (%) IN ARTERIAL BLOOD 94.5 % Normal 94.0-98.0 [facility] Comment on above: Order Comment: bipap Performed By: #### L [id number] #### [facility] (BEAKER) [address] [place] [address] OXYGENATED HEMOGLOBIN IN BLOOD 92.3 % Normal 90.0-95.0 [facility] Comment on above: Order Comment: bipap Performed By: #### L [id number] #### [facility] (BEAKER) [address] [place] [address] pH (Bld) 7.53 [pH] High 7.35-7.45 [facility] Comment on above: Order Comment: bipap Performed By: #### L [id number] #### [facility] (BEAKER) [address] [place] [address] RESPIRATORY RATE 14 Normal [facility] Comment on above: Order Comment: bipap Performed By: #### L [id number] #### [facility] (BEAKER) [address] [place] [address] SOURCE OF OXYGEN Bi-PAP Normal [facility] Comment on above: Order Comment: bipap Performed By: #### L [id number] #### [facility] ([facility]) [address] [place] [address] B-TYPE NATRIURETIC PEPTIDEon 08-01-2023 Natriuretic peptide B (Bld) [Mass/Vol] 145 pg/mL High 0-100 [facility] Comment on above: Performed By: #### L [id number] #### [facility] ([facility]) [address] [place] [address] BLOOD CULTUREon 08-01-2023 Bacteria identified Cx Nom (Bld) No growth at 5 days Normal [facility] Comment on above: Performed By: #### L [id number] #### [facility] ([facility]) [address] [place] [address] CBC WITH AUTO DIFFERENTIALon 08-01-2023 Basophils (Bld) [#/Vol] 0.02 10*3/uL Normal 0.00-0.20 [facility] Comment on above: Performed By: #### L [id number] #### [facility] ([facility]) [address] [place] [address] Basophils/100 WBC (Bld) 0.2 % Normal 0.0-1.0 [facility] Comment on above: Performed By: #### L [id number] #### [facility] ([facility]) [address] [place] [address] Eosinophils (Bld) [#/Vol] 0.01 10*3/uL Normal 0.00-0.50 [facility] Comment on above: Performed By: #### L [id number] #### [facility] ([facility]) [address] [place] [address] Eosinophils/100 WBC (Bld) 0.1 % Normal 0.0-6.0 [facility] Comment on above: Performed By: #### L [id number] #### [facility] ([facility]) [address] [place] [address] Erythrocyte distribution width (RBC) [Ratio] 13.2 % Normal 11.5-15.0 [facility] Comment on above: Performed By: #### L [id number] #### [facility] (BEAKER) [address] [place] [address] ERYTHROCYTE MEAN CORPUSCULAR HEMOGLOBIN CONCENTRATION (G/DL) BY AUTOMATED 33.1 g/dL Normal 32.0-35.0 [facility] Comment on above: Performed By: #### L [id number] #### [facility] ([facility] [address] [place] [address] Hematocrit (Bld) [Volume fraction] 54.1 % High 36.0-48.0 [facility] Comment on above: Performed By: #### L [id number] #### [facility] ([facility]) [address] [place] [address] Hemoglobin (Bld) [Mass/Vol] 17.9 g/dL High 12.0-15.0 [facility] Comment on above: Performed By: #### L [id number] #### [facility] (BEAKER) [address] [place] [address] Immature granulocytes (Bld) [#/Vol] 0.10 10*3/uL Normal 0.00-0.20 [facility] Comment on above: Performed By: #### L [id number] #### [facility] (BEAKER) [address] [place] [address] Immature granulocytes/100 WBC (Bld) 1.1 % High 0.0-1.0 [facility] Comment on above: Performed By: #### L [id number] #### [facility] (BEAKER) [address] [place] [address] Lymphocytes (Bld) [#/Vol] 0.40 10*3/uL Low 1.20-4.00 [facility] Comment on above: Performed By: #### L [id number] #### [facility] (BEAKER) [address] [place] [address] Lymphocytes/100 WBC (Bld) 4.2 % Low 20.0-45.0 [facility] Comment on above: Performed By: #### L [id number] #### [facility] (BEAKER) [address] [place] [address] MCH (RBC) [Entitic mass] 30.6 pg Normal 27.0-33.0 [facility] Comment on above: Performed By: #### L [id number] #### [facility] (BEAKER) [address] [place] [address] MCV (RBC) [Entitic vol] 92.5 fL Normal 82.0-98.0 [facility] Comment on above: Performed By: #### L [id number] #### [facility] [address] [place] [address] Monocytes (Bld) [#/Vol] 0.50 10*3/uL Normal 0.10-1.00 [facility] Comment on above: Performed By: #### L [id number] #### [facility] ([facility]) [address] [place] [address] Monocytes/100 WBC (Bld) 5.3 % Normal 5.0-12.0 [facility] Comment on above: Performed By: #### L [id number] #### [facility] [address] [place] [address] Neutrophils (Bld) [#/Vol] 8.47 10*3/uL High 1.60-7.60 [facility] Comment on above: Performed By: #### L [id number] #### [facility] (BEAKER) [address] [place] [address] Neutrophils/100 WBC (Bld) 89.1 % High 40.0-72.0 [facility] Comment on above: Performed By: #### L [id number] #### [facility] (BEAKER) [address] [place] [address] NRBC (PER 100 WBCS) BY AUTOMATED COUNT 0.0 % Normal 0 [facility] Comment on above: Performed By: #### L [id number] #### [facility] (BEAKER) [address] [place] [address] PLATELETS (10*3/UL) IN BLOOD AUTOMATED COUNT 265 10*3/uL Normal 150-400 [facility] Comment on above: Performed By: #### L [id number] #### [facility] ([facility]) [address] [place] [address] RBC (Bld) [#/Vol] 5.85 10*6/uL High 3.80-5.00 [facility] Comment on above: Performed By: #### L [id number] #### [facility] ([facility]) [address] [place] [address] WBC (Bld) [#/Vol] 9.50 10*3/uL Normal 4.00-10.60 [facility] Comment on above: Performed By: #### L [id number] #### [facility] ([facility]) [address] [place] [address] COMPREHENSIVE METABOLIC PANE Matty 08-01-2023 Albumin [Mass/Vol] 3.5 g/dL Normal 3.5-5.[address] [facility] Comment on above: Performed By: #### L [id number] #### [facility] ([facility]) [address] [place] [address] ALP [Catalytic activity/Vol] 54 U/L Normal 34-104 [facility] Comment on above: Performed By: #### L [id number] #### [facility] ([facility]) [address] [place] [address] ALT [Catalytic activity/Vol] 10 U/L Normal 7-52 [facility] Comment on above: Performed By: #### L [id number] #### [facility] ([facility]) [address] [place] [address] Anion gap [Moles/Vol] 10 mmol/L Normal 7-20 [facility] Comment on above: Performed By: #### L [id number] #### [facility] ([facility]) [address] [place] [address] AST [Catalytic activity/Vol] 8 U/L Low 13-39 [facility] Comment on above: Performed By: #### L [id number] #### [facility] [address] [place] [address] Bilirubin [Mass/Vol] 0.9 mg/dL Normal 0.3-1.0 [facility] Comment on above: Performed By: #### L [id number] #### [facility] ([facility]) [address] [place] [address] Calcium [Mass/Vol] 9.0 mg/dL Normal 8.6-10.[address] [facility] Comment on above: Performed By: #### L [id number] #### [facility] ([facility]) [address] [place] [address] Chloride [Moles/Vol] 90 mmol/L Low 98-107 [facility] Comment on above: Performed By: #### L [id number] #### [facility] [address] [place] [address] CO2 [Moles/Vol] 40 mmol/L High 21-31 [facility] Comment on above: Performed By: #### L [id number] #### [facility] ([facility]) [address] [place] [address] Creatinine [Mass/Vol] 0.60 mg/dL Normal 0.60-1.20 [facility] Comment on above: Performed By: #### L [id number] #### [facility] ([facility]) [address] [place] [address] GLOMERULAR FILTRATION RATE ML/MIN/1.73 SQ M.PREDICTED 111.3 mL/min/1.73m*2 Normal >60.0 [facility] Comment on above: Result Comment: The [facility]???s estimated glomerular filtration rate (eGFR) will [...] individuals. Performed By: #### L [id number] #### [facility] ([facility]) [address] [place] [address] Glucose [Mass/Vol] 280 mg/dL High 70-[address] [facility] Comment on above: Performed By: #### L [id number] #### [facility] ([facility]) [address] [place] [address] Potassium [Moles/Vol] 3.5 mmol/L Normal 3.5-5.1 [facility] Comment on above: Performed By: #### L [id number] #### [facility] ([facility]) [address] [place] [address] Protein [Mass/Vol] 6.4 g/dL Normal 6.0-8.[address] [facility] Comment on above: Performed By: #### L [id number] #### [facility] ([facility]) [address] [place] [address] Sodium [Moles/Vol] 136 mmol/L Normal 136-[address] [facility] Comment on above: Performed By: #### L [id number] #### [facility] ([facility]) [address] [place] [address] Urea nitrogen [Mass/Vol] 27 mg/dL High 7-25 [facility] Comment on above: Performed By: #### L [id number] #### [facility] ([facility]) [address] [place] [address] UREA NITROGEN/CREATININE (MASS RATIO) IN SER/PLAS 45.0 Normal [facility] Comment on above: Performed By: #### L [id number] #### [facility] ([facility]) [address] [place] [address] CONSULTon 08-01-2023 CONSULT ----- ----- Attestation signed [...] PMH of Asthma, who presented intimally to [facility] on 07/25 due to SOB that [...] 76 mmHg. She was transferred to [facility] for Right heart Catheterization. She reports [...] likely d (more content not included)... Normal [facility] EXTRACTABLE NUCLEAR ANTIGEN ANTIBODIESon 08-01-2023 ANTI SM AB Negative Normal [facility] Comment on above: Performed By: #### L [id number] #### [facility] (BEAKER) [address] [place] [address] ANTI SM/ANTIRNP AB Negative Normal [facility] Comment on above: Performed By: #### L [id number] #### [facility] ([facility]) [address] [facility] [place] [address] GRAM STAINon 08-01-2023 GRAM STAIN RESULT Normal [facility] Comment on above: Result Comment: Spec imen contains >25 Epithelial Cells/LPF, unsuitable for culture. Please submit a new specimen >25 Squamous Epithelial Cells Per Low Power Field >25 Polys Per Low Power Field Many Gram positive cocci in pairs Many Gram positive bacilli Performed By: #### L [id number] #### [facility] ([facility]) [address] [facility] [place] [address] HPon 08-01-2023 HP ----- ----- Attestation signed [...] PMH of Asthma, who presented intimally to [facility] on 07/25 due to SOB that [...] 76 mmHg. She was transferred to [facility] for Right heart Catheterization. She reports [...] likely d (more content not included)... Normal [facility] HP ----- ----- Attestation signed by [...] [facility] 47 [facility] 1975 [id number] Date of Admission - 08/01/2023 1:47 AM Chief Complaint Initial presentation to [facility] with worsening shortness of breath, transferred to [facility] for right heart cath History of Present Illness 47-year-old female who presented to [facility] on 07/25 with 4 days of [...] the patient's, who recommended transfer to [facility] for right heart cath. At [facility] Medication at [facility]: Tylenol, DuoNebs, [...] for: PREALBUMIN, TSH, T3FREE, FREET4, CORTISOL, FEV1, DAR0SHX, DLCO, RVSP, HDL, LDL No results found for: [id number], IRON, (more content not included)... Normal [facility] MAGNESIUMon 08-01-2023 Magnesium [Mass/Vol] 1.9 mg/dL Normal 1.9-2.7 [facility] Comment on above: Performed By: #### L [id number] ####[facility] (BEAKER)[address] [place] [address] MPO/PR3 REFLEX TO ANCAon MYELOPEROXIDASE (MPO) AB, IGG 0 AU/mL Normal 0-19 [facility] Comment on above: Result Comment: INTE RPRETIVE INFORMATION: Myeloperoxidase Abs, IgG 19 AU/mL or Less ......... Negative 20-25 AU/mL .............. Equivocal 26 AU/mL or Greater ...... Positive Approximately 90% of patients with a P-ANCA pattern by IFA have antibodies specific for MPO. Performed By: #### L [id number] #### [facility] ([facility]) [address] [place] [address] SERINE PROTEINASE 3 (PR3) AB, IGG 1 AU/mL Normal 0-19 [facility] Comment on above: Result Comment: Myeloperoxidase [...] have antibodies specific for PR3. Performed By: [email or web address] [address] [place] [id number] Marketing Researcher: Saturnion Rai MD, PhD CLIA Number: [id number] Performed By: #### L [id number] #### [facility] ([facility]) [address] [place] [address] PHOSPHORUSon 08-01-2023 Magnesium [Mass/Vol] 3.8 mg/dL Normal 2.5-5.0 [facility] Comment on above: Performed By: #### L [id number] #### [facility] ([facility]) [address] [place] [address] POCT GLUCOSE METER UNSOLICIT ED RESULTSon 08-01-2023 Glucose [Mass/Vol] 310 mg/dL High 70-[address] [facility] Comment on above: Order Comment: Waive d Testing in the ED is performed under the ED CLIA certificate #[id number]. Result Comment: ebol tz Performed By: #### L [id number] #### [facility] ([employer]) [address] [facility] [place] [address] Glucose [Mass/Vol] 233 mg/dL High 70-105 [facility] Comment on above: Order Comment: Waive d Testing in the ED is performed under the ED CLIA certificate #[id number]. Result Comment: shvalentin [email or web address] Performed By: #### L [id number] #### [facility] ([employer]) [address] [place] [address] PROCALCITONIN TESTon 023 PROCALCITONIN IN BLOOD 0.03 ng/mL Normal 0.00-0.10 [facility] Comment on above: Result Comment: Susp [...] PCT<0.5ng/mL Performed By: #### L [id number] #### [facility] ([facility]) [address] [place] [address] PROTIME-INRon 08-01-2023 INR IN PPP BY COAGULATION ASSAY 1.10 Normal 0.90-1.10 [facility] Comment on above: Result Comment: [facility] P RECOMMENDED INR FOR WARFARIN THERAPY CONDITION [...] 1995;108:231S-246S. Performed By: #### L [id number] #### [facility] ([facility]) [address] [place] [address] PROTHROMBIN TIME (PT) IN PPP BY COAGULATION ASSAY 14.3 Seconds Normal 12.3-14.8 [facility] Comment on above: Performed By: #### L [id number] #### [facility] ([facility]) [address] [place] [address] TROPONIN Ion 08-01-2023 Troponin I.cardiac [Mass/Vol] 0.02 ng/mL Normal 0.00-0.04 [facility] Comment on above: Performed By: #### L [id number] #### [facility] ([facility]) [address] [place] [address] TALS-PnN-6ra 04-18-2020 SARS-CoV-2 Not Detected Normal Not Detected [facility] Comment on above: Result Comment: (NOT E) This test was developed and its performance characteristics determined by [employer]. This test has not been FDA cleared [...] detected) result in this assay. Performed At: [facility] [address] [facility] [place] [id number] Felisha Martinez MD Ph:[phone] Performed By: #### A COV #### [facility] [address] [place], [place] [id number] Rn Prior Authorization: Lonnie Lozano MD Encounters Encounter Date Encounter Type Care Provider Facility Start: 04-04-2024 End: 04-04-2024 ambulatory [facility] Start: 10-29-2023 End: 10-29-2023 ambulatory [facility] Start: 10-10-2023 Evaluation and management of inpatient [facility] Start: 10-10-2023 Evaluation and management of inpatient [facility] Start: 10-09-2023 Evaluation and management of inpatient [facility] Start: 10-09-2023 [facility] Start: 10-09-2023 End: 10-10-2023 Evaluation and management of inpatient [facility] Start: 09-04-2023 End: 09-04-2023 ambulatory [facility] Start: 08-29-2023 End: 08-29-2023 ambulatory [facility] Start: 08-28-2023 End: 08-28-2023 ambulatory [facility] Start: 08-08-2023 Evaluation and management of inpatient CARLEY GOODRICH [facility] Start: 08-07-2023 Evaluation and management of inpatient VENTURA ARAUJO [facility] Start: 08-07-2023 Evaluation and management of inpatient DB HICKS [facility] Start: 08-02-2023 Evaluation and management of inpatient LISSETTE ANAKESHAWN DELGADO [facility] Start: 08-02-2023 ambulatory LISSETTE ANA [facility] Start: 08-02-2023 Evaluation and management of inpatient LISSETTE DELGADO [facility] Start: 08-02-2023 Evaluation and management of inpatient LISSETTE DELGADO [facility] Start: 08-01-2023 End: 08-09-2023 Evaluation and management of inpatient OLMAN MILESP [facility] Start: 04-15-2020 End: 04-16-2020 Patient encounter procedure [facility] Start: 04-15-2020 End: 04-15-2020 [facility] Covid Screening Comment on above: Arrived Procedures Date Procedure Procedure Detail Performing Clinician Start: 04-15-2020 COVID-19 AMBULATORY [facility] Plan of Treatment Date Care Activity Detail Author Start: 05-18-2020 Influenza vaccination Flu vaccine (# 1) [place], [place] Start: 2015 Lipid panel Lipid screen [place], [place] Start: 1996 Screening for malign ant neoplasm of cervix Cervical cancer screen [place], [place] Start: 1994 DTaP/Tdap/Td vaccine (1 - Tdap) DTaP/Tdap/Td vaccine (1 - Tdap) [place], [place] Start: 1990 HIV screening [facility] [place] [place] End: 04-15-2020 Covid-19 Ambulatory Covid-19 Ambulatory Lab Routine Once for 1 Occurrences starting 04/15/2020 until 04/15/2020 [place], [place] Comment on above: Once for 1 Occurrenc es starting 04/15/2020 until 04/15/2020 Covid-19 Ambulatory Covid-19 Amb ulatory Lab Routine 04/15/2020 6:59 AM EDT [place], [place] Payers Date Payer Category Payer Private Health Insurance [id number] 2014 Unknown [id number] 2014 Unknown [employer] [address] [id number] 2014-Present [phone] [address] [place] [address] [id number] 1975 Unknown [id number] Social History Date Type Detail Facility Tobacco smoking status MAIS Unknown if ev er smoked [place], [place] Sex Assigned At Not on file [place] Clinical Notes 08-02-2023 to 04-04-2024 Note Date & Type Note Facility 04-04-2024 Note [facility] Subjective Daniel Lynn is a 48 y.o. year old female patient being seen for 6 mo follow up ASD and pulmonary hypertension. Had routine echo a few weeks ago. She denies chest pain, SOB, palpitations, and lightheadedness/syncope. Doing very well. Patient Active Problem List Diagnosis Dyspnea on exertion MTHFR (methylene THF reductase) deficiency and homocystinuria (CMS/HCC) Type 2 diabetes mellitus (CMS/HCC) Smoker, current status unknown Pulmonary hypertension (CMS/HCC) ASD (atrial septal defect) Obesity due to excess calories Primary hypertension Pulmonary arterial hypertension associated with congenital heart disease (CMS/HCC) Asthma Chronic respiratory failure (CMS/HCC) Hypersomnia, unspecified Pulmonary arterial hypertension (CMS/HCC) Secundum atrial septal defect Body mass index (BMI) 45.0-49.9, adult ([facility]) Obstructive sleep apnea syndrome No family history on file. Social History Tobacco Use Smoking status: Some Days Types: Cigarettes SAMARIA Najera is seen in follow-up. She is a 48-year-old woman whom I met recently when she was admitted on 08/01/2023 with acute respiratory failure and hypoxia. Investigation revealed evidence of ostium secundum ASD with significant [id number] shunting across it, severe pulmonary hypertension and [...] pulmonary AV malformation or other source of [id number] shunting. Eventually I proceeded with ASD closure on 10/09/2023 using a 34 mm Amplatzer ASO device. She did well with the procedure. She was started on therapy with the sildenafil. She was started macitentan which she stopped because of side effects. Her follow up echocardiogram 6 months post procedure showed good closure with improved RVSP. Today she reports that she has significantly improved her symptoms of shortness of breath and lower extremity edema after the ASD closure. She uses oxygen only at night. she has not been needing oxygen during the day. She feels great. Review of Systems Cardiovascular: Positive for leg swelling (L>R, resolves by morning). All other systems reviewed and are negative. Objective Visit Vitals BP 122/76 (BP Location: Left arm, Patient Position: Sitting) Pulse 59 Ht 1.575 m (5' 2 ) Wt 122 kg (268 lb) SpO2 96% BMI 49.02 kg/m??? OB Status Having periods Smoking Status Some Days BSA 2.31 m??? [...] 2+ on the left side. Heart sounds: No murmur heard. No systolic murmur is present. No friction rub. No gallop. Pulmonary: Effort: [...] tablet (20 mg) by mouth in the (more content not included)... [facility] 10-29-2023 Note [facility] - [facility] Subjective Daniel Lynn is a [...] evidence of ostium secundum ASD with significant zoex-nr-swpqz shunting across it, severe pulmonary hypertension and [...] pulmonary AV malformation or other source of bfns-gj-nttsv shunting. She was started on therapy with [...] mg) by aubrie (more content not included)... [facility] 10-10-2023 Note Patient discharged w ith copy of AVS. IV removed, all belongings with patient. Patient provided post cath discharge instructions. All questions and concerns addressed. [facility] 10-10-2023 Note 10/10/23 1047 Admission Assessment [...] Discharge? Yes Does the patient have a director of casework services assigned to them through their insurance? Yes [...] link and activate MyChart? MyChart already active [facility] 10-09-2023 Note Patient: Daniel bernstein Procedure Information Date/Time: 10/09/23 1300 Procedure: Atrial septal defect closure Location: [facility] CALL WORKER PERSON 3 / [facility] (Cath) Providers: Chris Roger [...] Plan discussed with attending. Additional Equipment Requests [facility] 08-28-2023 Note MD Cardiology - [facility] Subjective Daniel Lynn is a 47 y.o. year old female patient being seen for follow up [facility]. Says her insurance will only pay [...] evidence of ostium secundum ASD with significant xhtr-jr-ffzfh shunting across it, severe pulmonary hypertension and [...] pulmonary AV malformation or other source of wvdf-bj-eadvw shunting. She was started on therapy with [...] 0.42 (L) 08/09/2023 (more content not included)... [facility] 08-09-2023 Note Called the tanya shin [facility] for home [phone] and faxed script /f2f [phone] They are able to set up home . Patient given tank and advised to call [facility] once home( in route) Received fax, on phone with rep at [facility]. Received confirmation they have order and will set up for patient, [facility] 08-09-2023 Note Met with Patient bed [...] arrangements. Medical team notified of Pt decision [facility] 08-09-2023 Note Hospital Medicine Discharge Summary Final Discharge Diagnosis: Acute hypoxic respiratory failure, likely due to Pulmonary Hypertension Large secundum ASD with bidirectional flow. The largest septal defect measured 3.5 cm, confirmed by Cardiac MRI & MATT New onset DM-II Admission Diagnosis: Dyspnea on exertion [R06.09] Hospital course: 47-year-old female who presented to [facility] on 07/25 with 4 days of [...] the patient's, who recommended transfer to [facility] for right heart cath. At [facility] Medication at [facility]: Tylenol, DuoNebs, [...] COVID-pneumonia. Patient was transferred to medical ICU [facility] for hypoxic respiratory failure likely due [...] Your Medications These medications were sent to [facility]/pharmacy #[id number] - [address] [address] furosemide 40 mg tablet insulin detemir (more content not included)... [facility] 08-09-2023 Note ------ Attestation signed by Kvng Kumar MD at 08/09/2023 11:18 PM I reviewed the salient portions of the patient history. Agree with the noted assessment and plan. Kvng Kumar MD [facility] Physicians Pulmonary and Critical Care Medicine [...] (chronic obstructive pulmonary disease) ([facility]) Diabetes mellitus ([facility]) Hypertension MTHFR gene mutation Obesity Allergies Allergen [...] shifts: In: 1 (more content not included)... [facility] 08-09-2023 Note 08/09/23 0920 Home Oxygen Therapy Evaluation Pulse Oximetry on room air at Rest 94 Pulse Ox on O2 with nasal cannula while at rest 94 (3 lpm) Pulse Ox on room air while walking 84 Pulse Ox on O2 with nasal cannula while walking 94 (3 lpm) Patient Qualification for home oxygen Qualifies Patient qualifies for home oxygen 3 lpm. [facility] 08-08-2023 Note Hospital Medicine Daily Progress Note - 08/08/2023 1:15 PM; Room: [address] [place] [address] Admission: 08/01/2023 1:47 AM; Length of stay: 7 days THE HOSPITALIST TEAM PREFERS TO USE [employer] CHAT FOR COMMUNICATION 7AM-7PM. IF I DO NOT RESPOND WITHIN 15 MINUTES, PLEASE PAGE ME/CALL THROUGH THE OUTSOLE SCHEDULER. FROM 7PM-7AM, PLEASE PAGE [phone](COVR) Code Status: Full Code Barriers to Discharge: [...] days Lab Units 08/08/23 0456 08/07/23 0427 WBC AUTO 10*3/uL 8.55 9.05 HEMOGLOBIN g/dL [...] TSH 0.56 08/03/2023 No results found for: [id number], IRON, TIBC, C3, C4, PHANI, CANCA, ASO, [...] vascular detail. FI (more content not included)... [facility] 08-08-2023 Note Nutrition Screening Assessment: Patient Name: Daniel Lynn : 1975 Date of Assessment: 08/08/23 Nutrition re-screen completed Past Medical History: Diagnosis Date Asthma COPD (chronic obstructive pulmonary disease) ([facility] Diabetes mellitus ([facility]) Hypertension MTHFR gene mutation Obesity Information obtained [...] Comments: Entree salad, tomato, cucumber, ranch and mongolian dressing, diet coke, quesadilla with grilled chicken [...] with questions and contact the dietitian via [employer] 8A-4P Sunday-Sunday. Or call the dietitian's office at [email or web address] [phone]. For s/holidays, the dietitian's can be reached by paging [phone] from -. Unable to be reached via [employer] on Sunday & .) [facility] 08-08-2023 Note ------ Attestation signed by Raza Leonard MD at 08/08/2023 12:46 PM I reviewed the salient portions of the patient history. I have seen and examined the patient during rounds with the resident/fellow. I repeated the askew components of the exam. Agree with the noted assessment and plan. Raza Leonard MD [facility] Physicians Pulmonary interventional and Critical Care [...] (chronic obstructive pulmonary disease) ([facility]) Diabetes mellitus ([facility]) Hypertension MTHFR gene mutation Obesity Allergies Allergen [...] MSK: no my (more content not included)... [facility] 08-08-2023 Note Occupational Therapy Occupational Therapy [...] Level of Function Prior Function Level of [place]: Independent with ADLs and functional transfers, Independent [...] Eating meals?: None (Independent) Total Score OT [facility]: 24 Assessment/Plan OT Assessment OT Education/Comments: may benefit to use shower chair, brief discussion about ws/ec/pacing with good verbal return Plan OT Plan: No skilled OT Equipment Recommended: (ssc) OT - Discharge Recommendations Placed: Yes OT Goals Multi-Disciplinary Problems (from Occupational Therapy) Active Problems Not on file [facility] 08-08-2023 Note ------ Attestation signed by Iasi George MD at 08/08/2023 2:56 PM I [...] 1 [facility] Heart Station [address] [place] [address] [phone] (fax) Transesophageal Echocardiogram-[facility] Name: DANIEL LYNN Study Date: 08/07/2023 04:01 PM B/P: 124 mmHg/80 mmHg HR: 97 bpm Date of : 1975 Location: [facility] Height: 62 in. Age: 47 year(s) Patient Room: 3233 Weight: 268 lb. Gender: Female Patient Status: InPt BSA: 2.16 m2 Indication: pre-op ASD Examination: MATT/Limited Doppler/CFI, 3D images Image Quality: Good Patient Consent: Informed, written consent was obtained for the procedure Exam Location: A MATT was performed in the [employer] [facility] without complications Anesthesia Pharyngeal anesthesia with viscous [...] aortic valve regurgi (more content not included)... [facility] 08-07-2023 Note Patient: Daniel rizvi Procedure Information Date/Time: 08/07/23 1000 Procedures: Coronary angiography Right heart cath Location: [facility] CALL WORKER PERSON [address] / [facility] (Cath) Providers: Chris Roger [...] with fellow and attending. Additional Equipment Requests [facility] 08-07-2023 Note H&P reviewed. RHC an d cardiac CT c/w PH and ASD. Plan for RHC/coronary angiogram for assessment of ASD closure. Procedures' details, risks and benefits discussed with the patient and she's agreeable. 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 [facility] 08-07-2023 Note ------ Attestation signed by [...] 1 [facility] Heart Station [address] [place] [address] [phone] (fax) Echocardiogram-[facility] Name: DANIEL LYNN Study Date: 08/02/2023 09:04 AM B/P: 121 mmHg/88 mmHg HR: 66 bpm Date of : 1975 Location: [facility] Height: 62 in. Age: 47 year(s) [...] tricuspid valve debora (more content not included)... [facility] 08-07-2023 Note ------ Attestation signed by Kvng Kumar MD at 08/07/2023 11:57 PM I reviewed the salient portions of the patient history. I have seen and examined the patient during rounds with the resident/fellow. I repeated the askew components of the exam. Agree with the noted assessment and plan. Kvng Kumar MD [facility] Pulmonary and Critical Care Medicine ------ Medical ICU Progress Note [facility] - [facility] Lynn [facility] 47 [facility] 1975 [id number] Date of Admission - 08/01/2023 1:47 AM HPI/Hospital Course Subjective 47-year-old female who presented to [facility] on 07/25 with 4 days of [...] the patient's, who recommended transfer to [facility] for right heart cath. At [facility] Medication at [facility]: Tylenol, DuoNebs, [...] COVID-pneumonia. Patient was transferred to medical ICU [facility] for hypoxic respiratory failure likely due [...] 24 hours) at (more content not included)... [facility] 08-06-2023 Note ------ Attestation signed by [...] 08/05/23 1200 115/77 36.6 ???C (97.9 ???F) 78 15 93 % 08/05/23 0900 121/78 [...] 1 [facility] Heart Station [address] [place] [address] [phone] (fax) Echocardiogram-[facility] Name: DANIEL LYNN Study Date: 08/02/2023 09:04 AM B/P: 121 mmHg/88 mmHg HR: 66 bpm Date of : 1975 Location: [facility] Height: 62 in. Age: 47 year(s) [...] Global left ventricu (more content not included)... [facility] 08-06-2023 Note ------ Attestation signed by [...] Lynn Age - 47 [facility]. [facility] 1975 [id number] Date of Admission - 08/01/2023 1:47 AM HPI/Hospital Course Subjective 47-year-old female who presented to [facility] on 07/25 with 4 days of [...] the patient's, who recommended transfer to [facility] for right heart cath. At [facility] Medication at [facility]: Tylenol, DuoNebs, [...] COVID-pneumonia. Patient was transferred to medical ICU [facility] for hypoxic respiratory failure likely due [...] Decrease breath sounds (more content not included)... [facility] 08-05-2023 Note Subjective Daniel Lynn is a 47 y.o. female with PMH of Asthma and Obesity who was initially evaluated in [place] on 07/25 with with 4 days of [...] patient and they recommended transfer to [facility] for right heart catherization. She arrived to [facility] 08/01 where she was admitted to [...] Temp Temp src Pulse Resp SpO2 Weight 08/05/2323 -- -- -- -- -- 92 % [...] Neurological: Mental Stat (more content not included)... [facility] 08-05-2023 Note Subjective Daniel Lynn is a 47 y.o. female with PMH of Asthma and Obesity who was initially evaluated in [place] on 07/25 with with 4 days of [...] patient and they recommended transfer to [facility] for right heart catherization. She arrived to [facility] 08/01 where she was admitted to [...] Neurological: Mental Stat (more content not included)... [facility] 08-05-2023 Note Cardiology Progress Note Subjective [...] 1 [facility] Heart Station [address] [place] [address] [phone] (fax) Echocardiogram-[facility] Name: DANIEL LYNN Study Date: 08/02/2023 09:04 AM B/P: 121 mmHg/88 mmHg HR: 66 bpm Date of : 1975 Location: [facility] Height: 62 in. Age: 47 year(s) [...] thickness is mildl (more content not included)... [facility] 08-05-2023 Note ------ Attestation signed by [...] We will obtain a baseline PCO2, and ladle patcher PCO2 without using BiPAP, to see if we can qualify her for BiPAP at home. Clinically patient is at very high risk for obstructive sleep apnea , and also have consistent history. ------ Medical ICU Progress Note Patient - Daniel Lynn Age - 47 y.o. - 1975 Date of Admission - 08/01/2023 1:47 AM HPI/Hospital Course Subjective 47-year-old female who presented to [facility] on 07/25 with 4 days of [...] the patient's, who recommended transfer to [facility] for right heart cath. At [facility] Medication at [facility]: Tylenol, DuoNebs, [...] COVID-pneumonia. Patient was transferred to medical ICU [facility] for hypoxic respiratory failure likely due [...] via nasal cannula. (more content not included)... [facility] 08-04-2023 Note ------ Attestation signed by [...] 1 [facility] Heart [facility] [address] [place] [address] [phone] (fax) Echocardiogram-[facility] Name: DANIEL LYNN Study Date: 08/02/2023 09:04 AM B/P: 121 mmHg/88 mmHg HR: 66 bpm Date of : 1975 Location: [facility] Height: 62 in. Age: 47 year(s) [...] Value Normal Value (more content not included)... [facility] 08-04-2023 Note ------ Attestation signed by [...] Lynn Age - 47 [facility]. [facility] 1975 [id number] Date of Admission - 08/01/2023 1:47 AM HPI/Hospital Course Subjective 47-year-old female who presented to [facility] on 07/25 with 4 days of [...] the patient's, who recommended transfer to [facility] for right heart cath. At [facility] Medication at [facility]: Tylenol, DuoNebs, [...] COVID-pneumonia. Patient was transferred to medical ICU [facility] for hypoxic respiratory failure likely due [...] is 112/76 a (more content not included)... [facility] 08-03-2023 Note ------ Attestation signed by [...] Lynn Age - 47 [facility]. [facility] 1975 [id number] Date of Admission - 08/01/2023 1:47 AM HPI/Hospital Course Subjective 47-year-old female who presented to [facility] on 07/25 with 4 days of [...] the patient's, who recommended transfer to [facility] for right heart cath. At [facility] Medication at [facility]: Tylenol, DuoNebs, [...] COVID-pneumonia. Patient was transferred to medical ICU [facility] for hypoxic respiratory failure likely due [...] move all extremities, (more content not included)... [facility] 08-03-2023 Note ------ Attestation signed by [...] 1 [facility] [address] [place] [address] [phone] (fax) Echocardiogram-[facility] Name: DANIEL LYNN Study Date: 08/02/2023 09:04 AM B/P: 121 mmHg/88 mmHg HR: 66 bpm Date of : 1975 Location: [facility] Height: 62 in. Age: 47 year(s) [...] severely enlarged. Se (more content not included)... [facility] 08-02-2023 Note Patient: Daniel rizvi Procedure Information Date/Time: 08/02/23 1610 Procedure: Right heart cath Location: [facility] CALL WORKER PERSON 3 / [facility] (Cath) Providers: Chris Roger [...] with fellow and attending. Additional Equipment Requests [facility] 08-02-2023 Note Pharmacy Dosing Serv ice - Vancomycin Initial Consult Note Pharmacy has been consulted for the dosing and evaluation of Drug: Vancomycin Indication: pneumonia AUC 400-600 mg*hr/L and trough 10-20 mcg/mL Other Antimicrobial Regimens: cefepime 2g q8h Labs and Renal Function Total body weight: 122 kg (268 lb 8.3 oz) [place] body weight: 50.1 kg (110 lb 7.9 [...] / Comments: - 47yoF transferred [facility] and admitted to ICU 08/01 for acute hypoxic respiratory failure likely due to severe pulmonary hypertension and potential pneumonia. Viral panel at OSH positive for rhinovirus. Procal upon admission to [facility] 0.03. WBC increased from 9.5 to [...] 08/02/23 Plan discussed with Betsy Eckert PharmD [facility] 08-02-2023 Note ------ Attestation signed by [...] Neva Portillo MD PGY-2 Internal Medicine Resident [facility] 08-02-2023 Note ------ Attestation signed by [...] mEq/L Final No results found for: PHVEN, GSF5AHH, PO2VEN, BYC8WUP, IONCALVEN CBC: Results from last 7 days [...] Infusions: As Need (more content not included)... [facility] Summary Purpose Family History No Family History Records FoundNo Family History Records Found Advance Directives No Advanced Directives Records FoundDocuments on File Type Date Recorded Patient Division Order Analyst Expl anation Advance Directives and Living Will Power of Bank Guard Additional Source Comments INFORMATION SOURCE (unrecogn ized section and content) DATE CREATED AUTHOR 04/18/2020 Adelaida landa DATE CREATED AUTHOR AUTHOR'S MARY GRACE ORTIZ 04/07/2024 [facility] FOR RECORDS PERTAINING TO PATIENTS WHO [...] BE BASED ON THE PRIMARY CLINICAL RECORDS. [facility] [employer] provides no warranty or guarantee of the accuracy or completeness of information in this document.
--- NOTE | 2025-03-13 08:00 | CA_ITS ---
Patient Name: DANIEL LYNN MR#: [id number] : 1975 Exam Date: 03/13/2025 Ordering Doctor: DR CHRIS FLOREZ M.D. ECHOCARDIOGRAM REPORT PROCEDURE: CA ECHO DOPPLER COMPLETE INDICATIONS: Pulmonary hypertension, Atrial septal defect - corrected COMPARISON: None. DESCRIPTION: COMPLETE ECHOCARDIOGRAM Real-time transthoracic echocardiography with 2D, M-mode, spectral and color flow Doppler performed. QUALITY: Technical quality was adequate. LEFT VENTRICLE: Normal chamber size. Mild concentric left ventricular hypertrophy. Normal systolic function. LV EF: Normal left ventricular ejection fraction, (>55%). DIASTOLIC: ATRIAL SEPTUM: Atrial septal device appears well seated. No evidence of flow across the interatrial septum by color Doppler. LEFT ATRIUM: Normal chamber size. RIGHT ATRIUM: Mild dilatation. RIGHT VENTRICLE: Borderline chamber size. Normal right ventricular systolic function. TRICUSPID VALVE: Normal mobility and thickness. No stenosis with trivial regurgitation. Unable to assess right-sided pressures due to lack of measurable tricuspid regurgitation. MITRAL VALVE: Normal mobility and thickness. No evidence of mitral valve stenosis. Mild mitral annular calcification. Trivial mitral regurgitation. AORTIC VALVE: Normal trileaflet appearance. No visible sclerosis. Normal leaflet mobility. No evidence of aortic valve stenosis. No aortic regurgitation. AORTIC ROOT: Normal diameter and appearance. PULMONIC VALVE: Normal thickness and mobility. No stenosis. Trivial regurgitation. PERICARDIUM: No evidence of pericardial effusion. IVC: Not well visualized. PLEURA: CONCLUSION: 1. Mild concentric left ventricular hypertrophy with normal systolic function. LVEF is estimated at 55 to 60%. 2. Borderline right ventricular size with normal systolic function. 3. Mild right atrial dilatation. 4. No significant valvular dysfunction. 5. Atrial septal closure device is well-seated with no evidence of residual flow by color Doppler. 6. Unable to assess right-sided pressures due to lack of measurable tricuspid regurgitation. Adult Echocardiography Procedure Report Left Ventricle LVEDD (3.7 - 5.6 cm): 4.65 cm LVESD (2.2 - 4.0 cm): 2.54 cm LVIVS thickness (0.6 - 1.2 cm): 1.16 cm LVPW thickness (0.5 - 1.0 cm): 1.20 cm e': 0.11 m/s E - e': 6.79 LVOT Max Gradient: 2.21 mm[Hg] LVOT Area (cm2): 0.74 m/s Peak Velocity (LVOT): 0.74 m/s LVOT Diameter 2.10 cm Left Atrium LA Volume Index (2D A2C): 30.46 ml/m2 Mitral Valve MV E to A Ratio: 0.89 Mitral Valve A-Wave Peak Velocity: 0.86 m/s Mitral Valve E-Wave Peak Velocity: 0.76 m/s Right Ventricle Aorta AO Root Diam: 3.23 cm Aortic Valve AoV Area (Peak Armen): 1.92 cm2, 1.92 cm2 Peak Velocity(Antegrade Flow): 1.34 m/s Peak Gradient(Antegrade Flow): 7.20 mm[Hg] Tricuspid Valve Pulmonic Valve Peak Gradient: 6.65 mm[Hg], 6.29 mm[Hg] Right Atrium Right Atrium Systolic Pressure: 65.74 ml, 65.74 ml Dictated by: Chris Florez M.D. on 03/13/2025 at 18:58 Approved by: Chris Florez M.D. on 03/13/2025 at 19:04
== END 2025-03-13 07:30 | disposition home or self-care (01) ==
LOC: CARD 07:29
PROVIDERS: PCP Family Medicine; Visit Provider Internal Medicine Interventional Cardiology
DX: Q24.9 Congenital malformation of heart, unspecified (principal); Z87.74 Personal history of (corrected) congenital malformations of heart and circulatory system; Q21.10 Atrial septal defect, unspecified; I27.29 Other secondary pulmonary hypertension
CPT/HCPCS: 93306